=== PATIENT | female | born 1950 | race Caucasian/White ===

== ENCOUNTER → 2017-09-20 11:05 | Outpatient (CLI) | payer MEDICARE, OTHER, SELFPAY ==
[2017-09-20 12:28] LABS: Absolute Neutrophil Count 4.6 X10^3/uL (2.0-7.7); Basophil# 0.04 X10^3/uL; Basophil% 0.7 % (0-1); Eosinophil# 0.03 X10^3/uL; Eosinophils% 0.5 % (0-5); Hematocrit 34.4 % (37-47); Hemoglobin 10.6 g/dl (12.0-15.0); Immature Platelet Fraction 2.8 % (1.0-7.9); Lymphocyte % 18.2 % (19-41); Mean Corp Hgb Conc 30.8 g/gl (32-36); Mean Corpuscular Hgb 24.5 pg (27.0-32.0); Mean Corpuscular Volume 79.4 fL (81-99); Mean Platelet Vol. 11.3 fl (6.2-12.0); Monocyte# 0.24 X10^3/uL; Neutrophil # 4.63 X10^3/uL (2.7-7.7); Neutrophil % 76.4 % (47-70); Platelet Count 307 K/mm3 (150-450); RBC Distribution Width CV 16.8 % (11.6-14.6); RBC Distribution Width SD 48.6 fl (35.1-43.9); RET-HE 25.4 pg (30-35); Red Blood Count 4.33 M/mm3 (4.2-5.4); Reticulocyte Count 0.96 % (0.5-1.5); White Blood Count 6.1 K/mm3 (4.4-11.0)
[2017-09-20 12:31] LABS: POSITIVE COUNT NO; POSITIVE DIFFERENTIAL NO; POSITIVE MORPHOLOGY NO
[2017-09-20 12:59] LABS: Ferritin 7 ng/mL (8-252); Iron 128 ug/dL (50-170); Iron Binding Capacity,Total 442 ug/dL (250-450)
== END ==
PROVIDERS: Family Provider Family Medicine; PCP Family Medicine; Visit Provider Family Medicine
DX: D64.9 Anemia, unspecified (principal)
CPT/HCPCS: 36415; 82728; 83540; 83550; 85025; 85045

== ENCOUNTER → 2017-10-21 14:44 | Outpatient (CLI) | payer MEDICARE, OTHER, SELFPAY ==
--- NOTE | 2017-10-21 14:47 | HPBI_ITS ---
MAMMOGRAPHY - BILATERAL SCREENING REASON FOR EXAM: Female, 66 years old. Routine annual screening examination. PERTINENT HISTORY: Aunt with breast cancer. TECHNIQUE: Digital bilateral breast priyanka (3D mammographic acquisition) in the CC and MLO projections. 2-D mediolateral oblique (MLO) and craniocaudad (CC) views of both breasts were obtained. CAD: Full Field Digital Mammography with Computer Added Detection was performed. COMPARISON: Comparison is made with prior study dated August 31, 2016 and December 10, 2013. FINDINGS: Breast Composition: There are scattered areas of fibroglandular density. There are no dominant masses or suspicious calcifications. There is a stable 4.2 mm well-defined nodule in the mid retroareolar region of the left breast. This was demonstrated to be a cyst on prior ultrasound. No other significant abnormalities are identified. There has been no significant change since the prior study. HPBI/SCREENING MAMM (CAD), BILAT IMPRESSION: Stable bilateral screening mammogram. Yearly follow-up mammogram recommended. (A) ASSESSMENT CATEGORY: BIRADS Category 2: Benign. A letter regarding these results will be sent to the patient by the facility within 30 days. Approximately 10% of breast cancers are not detected by mammography. A normal mammogram should not delay biopsy of a clinically suspicious abnormality. [id number] Electronically Signed: Chandana Maldonado MD at 9:36 EDT Tel [phone], Service support ,
--- NOTE | 2017-10-21 14:50 | HPBD_ITS ---
STUDY: DUAL ENERGY X-RAY ABSORPTIOMETRY / DXA REASON FOR EXAM: Female, 66 years old. The patient is postmenopausal. Loss of height. TECHNIQUE: Bone Mineral Density (BMD) measurements of lumbar spine and bilateral hips were obtained. COMPARISON: Comparison is made with prior study dated May 11, 2015. FINDINGS: Lumbar Spine (L1-L4): g/cm2 (0.925) / T-score (-2.1) / Z-score (-0.5) Findings are suggestive of osteopenia with a moderate fracture risk. Left Femur Total: g/cm2 (0.759) / T-score (-2.0) / Z-score (-0.7) Left Femoral Neck: g/cm2 (0.670) / T-score (-2.7) / Z-score (-1.2) Right Femur Total: g/cm2 (0.734) / T-score (-2.2) / Z-score (-0.9) Right Femoral Neck: g/cm2 (0.682) / T-score (-2.6) / Z-score (-1.1) The T-Scores on the most recent prior examination were: Lumbar Spine (L1-L4): There has been worsening of bone density since the previous examination. Left Femur Total: which represents a worsening of 7.3%. Right Femur Total: which represents a worsening of 5.9%. HPBD/Dexa Bone Density Study (HP) IMPRESSION: The patient is considered osteoporotic as outlined below according to World Jef[employer] Organization (WHO) criteria with a high fracture risk. There has been worsening of bone density since the previous examination. Reference Information: The T-score is the number of standard deviations above or below the standard which is normal for young adults at their peak bone mineral density. The World Health Organization (WHO) interprets the T-scores as follows: Above -1 Normal bone density Between -1 and -2.5 Osteopenia Equal to / or below -2.5 Osteoporosis As a practical clinical guideline, osteopenia may be graded as follows: Mild -1 through -1.5 Moderate -1.6 through -2.0 Severe -2.1 through -2.4 The Z-score is the number of standard deviations above or below age-matched controls. A Z-score of less than -1.5 would be considered abnormal. References: 1. NIH Osteoporosis and Related Bone Diseases http://www.osteo.org 2. International Society for Clinical Densitometry http://www.iscd.org 3. National Osteoporosis Foundation http://www.nof.org Electronically Signed: Chandana Maldonado MD at 15:49 EDT Tel [phone], Service support ,
== END ==
PROVIDERS: Family Provider Family Medicine; PCP Family Medicine; Visit Provider Family Medicine
DX: Z12.31 Encounter for screening mammogram for malignant neoplasm of breast (principal); Z78.0 Asymptomatic menopausal state; Z80.3 Family history of malignant neoplasm of breast
CPT/HCPCS: 77063; 77067; 77080

== ENCOUNTER → 2017-10-22 13:43 | Outpatient (CLI) | payer MEDICARE, OTHER, SELFPAY ==
[2017-10-22 15:50] LABS: Anion Gap 7 (5-15); BUN 6 mg/dL (7-18); BUN/Creat Ratio 8.1 RATIO (10-20); Calcium,Total 9.5 mg/dL (8.5-10.1); Chloride 101 mmol/L (98-107); Creatinine, Serum 0.74 mg/dL (0.55-1.02); EST Glomerular Filtration Rate 83 mL/min (>60); Est Glom Filt Rate - Afr Amer 101 mL/min (>60); Glucose 105 mg/dL (74-106); Potassium 3.7 mmol/L (3.5-5.1); Sodium Level 138 mmol/L (136-145)
== END ==
PROVIDERS: Family Provider Family Medicine; PCP Family Medicine; Visit Provider Family Medicine
DX: I10 Essential (primary) hypertension (principal)
CPT/HCPCS: 36415; 80048

== ENCOUNTER → 2017-10-28 15:46 | Outpatient (CLI) | payer MEDICARE, OTHER, SELFPAY ==
[2017-10-28 18:23] LABS: Anion Gap 8 (5-15); BUN 6 mg/dL (7-18); BUN/Creat Ratio 8.7 RATIO (10-20); Chloride 100 mmol/L (98-107); Creatinine, Serum 0.69 mg/dL (0.55-1.02); EST Glomerular Filtration Rate 90 mL/min (>60); Est Glom Filt Rate - Afr Amer 109 mL/min (>60); Glucose 72 mg/dL (74-106); Magnesium 2.1 mg/dL (1.6-2.6); Phosphorus 3.8 mg/dL (2.5-4.9); Potassium 3.4 mmol/L (3.5-5.1); Sodium Level 138 mmol/L (136-145)
[2017-10-29 08:57] LABS: PTHIN 76.1 pg/mL (18.4-80.1)
[2017-10-29 08:59] LABS: Vitamin D,25 Hydroxy 35.8 ng/mL (29.95-100.01)
== END ==
PROVIDERS: Family Provider Family Medicine; PCP Family Medicine; Visit Provider Family Medicine
DX: M81.0 Age-related osteoporosis without current pathological fracture (principal)
CPT/HCPCS: 36415; 80048; 82306; 83735; 83970; 84100

== ENCOUNTER → 2017-11-20 12:12 | Outpatient (CLI) | payer MEDICARE, OTHER, SELFPAY ==
[2017-11-20 14:17] LABS: Hematocrit 34.9 % (37-47); Mean Corp Hgb Conc 31.5 g/gl (32-36); Mean Corpuscular Hgb 25.2 pg (27.0-32.0); Mean Corpuscular Volume 79.9 fL (81-99); Mean Platelet Vol. 10.8 fl (6.2-12.0); Platelet Count 324 K/mm3 (150-450); RBC Distribution Width CV 15.6 % (11.6-14.6); RBC Distribution Width SD 45.9 fl (35.1-43.9); Red Blood Count 4.37 M/mm3 (4.2-5.4); White Blood Count 8.9 K/mm3 (4.4-11.0)
[2017-11-20 14:18] LABS: Scan Indicated on CBC? Y/N NO
[2017-11-20 14:29] LABS: Erythrocyte Sedimentation Rate 6 mm/hr (0-30)
[2017-11-20 14:41] LABS: Anion Gap 8 (5-15); BUN 10 mg/dL (7-18); BUN/Creat Ratio 14.2 RATIO (10-20); Calcium,Total 8.7 mg/dL (8.5-10.1); Chloride 104 mmol/L (98-107); EST Glomerular Filtration Rate 88 mL/min (>60); Est Glom Filt Rate - Afr Amer 107 mL/min (>60); Glucose 100 mg/dL (74-106); Potassium 3.9 mmol/L (3.5-5.1); Sodium Level 137 mmol/L (136-145); Thyroid Stim Hormone (TSH) 1.46 uIU/mL (0.358-3.74)
[2017-11-21 10:02] LABS: Vitamin B12 368 pg/mL (211-911); Vitamin D,25 Hydroxy 29.6 ng/mL (29.95-100.01)
== END ==
PROVIDERS: Family Provider Family Medicine; PCP Family Medicine; Visit Provider Family Medicine
DX: R00.2 Palpitations (principal); R42 Dizziness and giddiness; E55.9 Vitamin D deficiency, unspecified; E53.8 Deficiency of other specified B group vitamins
CPT/HCPCS: 36415; 80048; 82306; 82607; 84443; 85027; 85652

== ENCOUNTER → 2017-12-22 15:27 | Outpatient (CLI) | payer MEDICARE, OTHER, SELFPAY ==
[2017-12-22 17:56] LABS: Anion Gap 9 (5-15); BUN 4 mg/dL (7-18); BUN/Creat Ratio 5.7 RATIO (10-20); Calcium,Total 9.7 mg/dL (8.5-10.1); Chloride 99 mmol/L (98-107); EST Glomerular Filtration Rate 89 mL/min (>60); Est Glom Filt Rate - Afr Amer 108 mL/min (>60); Glucose 117 mg/dL (74-106); Potassium 4.1 mmol/L (3.5-5.1); Sodium Level 137 mmol/L (136-145)
[2017-12-22 17:58] LABS: Vitamin B12 839 pg/mL (211-911)
== END ==
PROVIDERS: Family Provider Family Medicine; PCP Family Medicine; Visit Provider Family Medicine
DX: I10 Essential (primary) hypertension (principal); E53.8 Deficiency of other specified B group vitamins
CPT/HCPCS: 36415; 80048; 82607

== ENCOUNTER 2018-02-17 02:57 | Inpatient (IN) | payer MEDICARE, OTHER, SELFPAY ==
[2018-02-17] VITALS (16 sets, daily range): BP systolic 133–169; BP diastolic 65–88; PULSE 63–96; RESP 16–21; TEMP 36.4–37.4; O2SAT 80–100; BMI 27.3; BMI 24.9
--- NOTE | 2018-02-17 03:11 | EKG12_ITS ---
Test Reason : SEIZURE Blood Pressure : / mmHG Vent. Rate : 086 BPM Atrial Rate : 086 BPM P-R Int : 160 ms QRS Dur : 082 ms QT Int : 366 ms P-R-T Axes : 062 -29 042 degrees QTc Int : 437 ms Normal sinus rhythm Normal ECG Confirmed by HERMAN PICHARDO, JUAN J ([id number]), editor farm journal MERLYN KAPLAN ([id number]) on 02/18/2018 2:18:41 PM Referred By: MARISOL Confirmed By:JUAN J SUTTON MD
--- NOTE | 2018-02-17 03:11 | CT_ITS ---
STUDY: CT BRAIN WITHOUT CONTRAST REASON FOR EXAM: Female, 67 years old. Seizure x2 tonight. Does not respond to verbal commands. RADIATION DOSAGE (If Supplied By Facility): CTDIvol = ( 44.99 ) mGy, DLP = ( 745.49 ) mGycm TECHNIQUE: Transaxial CT imaging of the brain was performed without administration of intravenous contrast material. Multiplanar coronal and sagittal images were reformatted. Individualized dose optimization techniques were used for this CT. COMPARISON: CT brain and MRI brain 05/18/2016 FINDINGS: Normal soft tissue structures. Normal calvarium. Normal size ventricles and extra-axial spaces for the patient's age. There are areas of decreased attenuation within the white matter tracts of the supratentorial brain, consistent with microvascular disease changes. There are small punctate calcifications of the basal ganglia which are seen in the aging brain as a normal variant. Normal brainstem. Normal cerebellum. There is no intracranial hemorrhage. There are no findings of an acute ischemic infarction. Normal visualized paranasal sinuses. The bilateral mastoid air cells are clear. CT/Brain/Head without Contrast IMPRESSION: Chronic involutional changes of the brain. There is no acute intracranial pathology. There is no significant interval change. Electronically Signed: Ruba Rick MD at 4:20 EDT , Service support ,
[2018-02-17] MEDS: 0.9% Normal Saline 1,000 ML 150 ML IV ×2 (03:22→11:00)
[2018-02-17] MEDS: LORazepam 2 MG/ML Syringe 1 MG IV (03:22)
[2018-02-17 03:36] LABS: Bacteria 0 SEEN /hpf (None Seen); Mucous, Urine 0 SEEN /hpf (<or=2+); Red Blood Cells-Urine 0 SEEN /hpf (0-5); Squamous Epithelial Cells - UA 0 SEEN /hpf (5-10); White Blood Cells 0 SEEN /hpf (0-5)
[2018-02-17 03:37] LABS: Color, Urine Yellow (Yellow); Glucose, Dipstick Normal (Normal); Ketone-Dipstick Negative (Negative); Leukocyte Esterase-Dipstick Negative /ul (Negative); Nitrite-Dipstick Negative (Negative); Occult Blood-Urine 10 /ul (Negative); Protein-Dipstick 15 mg/dl (Negative); Urine Bilirubin Dipstick Negative (Negative); Urine Clarity Clear (Clear); Urine Urobilinogen Normal (Normal)
[2018-02-17 03:40] LABS: Absolute Lymphocyte Count 1.97 X10^3/ul (0.83-4.51); Absolute Neutrophil Count 11.1 X10^3/uL (2.0-7.7); Basophil# 0.03 X10^3/uL; Basophil% 0.2 % (0-1); Eosinophil# 0.13 X10^3/uL; Eosinophils% 0.9 % (0-5); Hematocrit 34.8 % (37-47); Hemoglobin 11.6 g/dl (12.0-15.0); Lymphocyte # 1.97 X10^3/ul (4.0); Lymphocyte % 13.6 % (19-41); Mean Corp Hgb Conc 33.3 g/gl (32-36); Mean Corpuscular Volume 81.1 fL (81-99); Mean Platelet Vol. 12.3 fl (6.2-12.0); Monocyte# 1.16 X10^3/uL; Neutrophil # 11.14 X10^3/uL (2.7-7.7); POSITIVE COUNT NO; POSITIVE DIFFERENTIAL NO; POSITIVE MORPHOLOGY NO; Platelet Count 290 K/mm3 (150-450); RBC Distribution Width CV 15.2 % (11.6-14.6); RBC Distribution Width SD 44.9 fl (35.1-43.9); Red Blood Count 4.29 M/mm3 (4.2-5.4); White Blood Count 14.5 K/mm3 (4.4-11.0)
[2018-02-17 03:54] LABS: ALB/GLOB Ratio 1.1 RATIO (0.9-2.4); AST(SGOT) 18 U/L (15-37); Alanine Aminotransfer ALT/SGPT 24 U/L (13-56); Albumin, Serum 3.6 g/dL (3.2-5.0); Alkaline Phosphatase 68 U/L (45-117); Anion Gap 10 (5-15); BUN 8 mg/dL (7-18); BUN/Creat Ratio 9.3 RATIO (10-20); Calcium,Total 8.7 mg/dL (8.5-10.1); Chloride 97 mmol/L (98-107); Creatinine, Serum 0.86 mg/dL (0.55-1.02); EST Glomerular Filtration Rate 70 mL/min (>60); Est Glom Filt Rate - Afr Amer 85 mL/min (>60); Globulin 3.2 g/dL (2.2-4.2); Glucose 119 mg/dL (74-106); Potassium 3.7 mmol/L (3.5-5.1); Protein, Total 6.8 g/dL (6.4-8.2); Sodium Level 134 mmol/L (136-145)
[2018-02-17 04:05] LABS: Amphetamine Urine VISTA NEGATIVE (<1000 ng/mL); Barbiturate Urine VISTA NEGATIVE (< 200 ng/mL); Benzodiazepine Urine VISTA NEGATIVE (< 200 ng/mL); Cocaine Urine VISTA NEGATIVE (< 300 ng/mL); Ecstacy Urine VISTA NEGATIVE (< 500 ng/mL); Methadone Urine VISTA NEGATIVE (< 300 ng/mL); PCP Urine VISTA NEGATIVE (< 25 ng/mL); THC Urine VISTA NEGATIVE (< 50 ng/mL); Vista UDS pH Range 6
--- NOTE | 2018-02-17 04:10 | ED.VISSUMM ---
- ER Visit Summary Date of Service: 02/17/18 Chief Complaint: [Seizure] History of Present Illness: The patient is a 67 F [presents the emergency department with complaint of seizure. The history comes from the patient's as patient is somewhat somnolent and not answering questions at this time. Patient apparently was in bed around 1 AM when she let out a scream and the noticed whole body tonic-clonic seizure activity that lasted about 10 minutes. Patient afterwards was confused and did not recover completely and had another seizure lasting about 5 minutes. Patient was noted to have bitten her tongue and noted blood from the mouth. Per patient first had a seizure in 2016 and then had another one about 8 months ago but is currently not on any seizure medications. Patient has not been ill recently. Patient does have a history of hypertension, GERD, hepatitis C, questionable MS and von Willebrand's disease. Patient will not answer any questions for me.] Physical Examination: [HEENT-PERRLA, EOMI. Cranial nerves II through XII grossly intact. TMs clear. Mucous membranes moist. No adenopathy. Patient does have a bite wound to the right side of her tongue. Cardiovascular-regular rate and rhythm without murmur or ectopy Lungs-clear to auscultation, chest wall stable without crepitus or subcu emphysema Abdomen-normoactive bowel sounds, soft, nontender, no rebound or rigidity, no peritoneal signs. Neuro exam-no focal deficits and patient does follow commands when asked to move limbs and stick her tongue out. Extremities-intact ?4, normal range of motion, normal pulses, atraumatic] Test Results: [EKG obtained on arrival shows sinus rhythm with a ventricular rate of 86 bpm. CBC with differential of 14.5, hemoglobin 11.6, hematocrit 35, platelets 290. Chemistries unremarkable. LFTs unremarkable. Urinalysis was normal. Troponin is less than 0.015. Toxicology screen was negative. CT scan of the brain without contrast showed no acute significant findings on my interpretation and the official report is pending from radiology. Patient on arrival did receive a milligram of Ativan IV] Emergency Department Course and Treatment: [And was started on Keppra thousand milligrams IV. I did review patient's medical records and it appears that she has had 2 EEGs within the last 2 years that have been without evidence for epileptic activity.] Treatment Plan: [Patient will be admitted to the hospital if she continues to be postictal.] Disposition: [Admit] Impression: [Status epilepticus Prolonged postictal state] This note was generated with [employer] dictation software. It may contain incorrect words, spelling, and punctuation that were not noted in review of the chart prior to signing ED Disposition - Plan for ED Patient: Chief Complaint: Seizure Referrals: Robert Patel MD [Primary Care Provider] -
[2018-02-17 04:14] LABS: Alcohol, Blood (Medical)-Serum < 3.0 mg/dL
--- NOTE | 2018-02-17 04:54 | ED.RN ---
CALLED [facility], ZAYDA WILL BE IN
[2018-02-17] MEDS: levETIRAcetam IV 1,000 MG/100 ML BAG 400 MG IV (05:07)
--- NOTE | 2018-02-17 05:10 | PCM.HP.STD ---
Problem List (1) Anxiety and depression Status: Chronic (2) Narcolepsy Status: Chronic (3) Von Willebrand disease Status: Chronic (4) Gastroesophageal reflux disease Status: Chronic Qualifiers: (5) Rheumatoid arthritis Status: Chronic Qualifiers: (6) Mental status change Status: Acute (7) Seizure Status: Acute History of Present Illness Date of Admission: 02/17/18 Chief Complaint: seizure The patient is a 67 year old female patient presents to the ER following a witnessed seizure at home. Patient was in bed around 1 AM when she let out a scream and the noticed whole body tonic-clonic seizure activity that lasted about 10 minutes. She was confused afterwards and did not recover completely. He reports that she had another seizure lasting about 5 minutes. Patient was noted to have bitten her tongue and noted blood from the mouth. Per patient first had a seizure in 2015 and then had another one about 8 months ago but is currently not on any seizure medications. She was previously evaluated for seizure disorder by neurology but EEG was unable to confirm this and therefore no medications were initiated for seizure. Patient has not been ill recently. She has a history of hypertension, GERD, hepatitis C, questionable MS and von Willebrand's disease. Patient is a poor historian at this time and remains it what appears to be a post ictal state. Past Medical History Past Medical History (Chronic Problems): Chronic Problems Anxiety and depression (Chronic) Narcolepsy (Chronic) Hep C (Chronic) Von Willebrand disease (Chronic) Gastroesophageal reflux disease (Chronic) Rheumatoid arthritis (Chronic) Allergies codeine Allergy (Verified 02/17/18 03:11) Hives morphine Allergy (Verified 02/17/18 03:11) Hives Opioids - Morphine Analogues Allergy (Verified 02/17/18 03:11) Hives amicar Adverse Reaction (Uncoded 02/17/18 03:11) Other sassafrass Adverse Reaction (Uncoded 02/17/18 03:11) Nausea/Vom/Diarrhea Home Medications: Ambulatory Orders Medication Instructions Recorded Lisinopril [Zestril] 10 mg PO DAILY 05/18/16 Omeprazole [Prilosec] 40 mg PO BID 05/18/16 predniSONE tablet 10 mg PO DAILY PRN 05/18/16 Potassium Chloride [K-Dur] 20 meq PO PRN PRN 02/17/18 Surgical History: - - L Breast biopsy, D&C, Cholecystectomy, Appendectomy. 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 Smoking Status: Former smoker - *Family History Maternal History Items: Cancer - utine cancer Paternal History Items: No pertinent history Review of Systems Unable to obtain accurate/complete ROS d/t: patient is confused and not able answer questions coherently VTE Information - Inpt Only VTE Present on Admission: No VTE Mechan Device Prophylaxis: None VTE Pharm Prophylaxis ordered?: Yes Patient Problems: Active and Suspected Problems Seizure (Acute) - Physical Exam General: Confused HEENT: Atraumatic, Normocephalic, Sluggish Pupils, - - dried blood around mouth from tongue bite Neck: Supple Lungs: Clear to auscultation, Normal air movement Cardiovascular: Regular rate, Regular Rhythm, Normal S1, Normal S2, No murmurs Abdomen: Bowel Sounds Present, Soft, Non Tender Extremities: No edema, Capillary Refill Less than 3 Seconds Skin: No rashes Musculoskeletal: No Tenderness to Palpation of Joints or Extremities Neurological: Neuro grossly intact Psych/Mental Status: - - difficult to arouse, but she was able to make one word answers and then she would quickly fall back to sleep Vital Signs Temp Pulse Resp BP Pulse Ox 98.3 F 89 21 H 139/66 H 97 02/17/18 02:58 02/17/18 05:05 02/17/18 05:05 02/17/18 05:05 02/17/18 05:05 Oxygen Flow Rate (L/min) 4 Oxygen Delivery Method Room Air Weight: 164 lb 0.383 oz Body Mass Index (BMI) 27.3 Finger Stick Blood Glucose 117 Laboratory Tests Past 24 Hrs 02/17/18 02/17/18 02/17/18 03:13 03:13 03:13 WBC 14.5 H RBC 4.29 Hgb 11.6 L Hct 34.8 L MCV 81.1 MCH 27.0 MCHC 33.3 RDW 15.2 H RDW Differential 44.9 H Plt Count 290 MPV 12.3 H Immature Gran % (Auto) 0.300 Neut % (Auto) 77.0 H Lymph % (Auto) 13.6 L [place] % (Auto) 8.0 Eos % (Auto) 0.9 Baso % (Auto) 0.2 Absolute Neuts (auto) 11.1 H Absolute Lymphs (auto) 1.97 Total Counted Not Reportable Sodium 134 L Potassium 3.7 Chloride 97 L Carbon Dioxide 27.0 Anion Gap 10 BUN 8 Creatinine 0.86 Estim Creat Clear Calc 57.90 Est GFR (MDRD) Af Amer 85 Est GFR (MDRD) Non-Af 70 BUN/Creatinine Ratio 9.3 L Glucose 119 H Calcium 8.7 Total Bilirubin 0.40 AST 18 ALT 24 Alkaline Phosphatase 68 Troponin I < 0.015 Total Protein 6.8 Albumin 3.6 Globulin 3.2 Albumin/Globulin Ratio 1.1 Urine Color Urine Clarity Urine pH Ur Specific Dillon Urine Protein Urine Glucose (UA) Urine Ketones Urine Occult Blood Urine Nitrite Urine Bilirubin Urine Urobilinogen Ur Leukocyte Esterase Urine RBC Urine WBC Ur Squamous Epith Cells Urine Bacteria Urine Mucus Urine Opiates Screen Urine Methadone Screen Ur Barbiturates Screen Ur Phencyclidine Scrn Ur Amphetamines Screen U Methamphetamin-MDMA U Benzodiazepines Scrn Urine Cocaine Screen U Cannabinoids Screen Ur Drug Screen Comment Ethyl Alcohol < 3.0 02/17/18 02/17/18 03:30 03:30 WBC RBC Hgb Hct MCV MCH MCHC RDW RDW Differential Plt Count MPV Immature Gran % (Auto) Neut % (Auto) Lymph % (Auto) [place] % (Auto) Eos % (Auto) Baso % (Auto) Absolute Neuts (auto) Absolute Lymphs (auto) Total Counted Sodium Potassium Chloride Carbon Dioxide Anion Gap BUN Creatinine Estim Creat Clear Calc Est GFR (MDRD) Af Amer Est GFR (MDRD) Non-Af BUN/Creatinine Ratio Glucose Calcium Total Bilirubin AST ALT Alkaline Phosphatase Troponin I Total Protein Albumin Globulin Albumin/Globulin Ratio Urine Color Yellow Urine Clarity Clear Urine pH 6.0 Ur Specific Dillon 1.020 Urine Protein 15 H Urine Glucose (UA) Normal Urine Ketones Negative Urine Occult Blood 10 H Urine Nitrite Negative Urine Bilirubin Negative Urine Urobilinogen Normal Ur Leukocyte Esterase Negative Urine RBC 0 SEEN Urine WBC 0 SEEN Ur Squamous Epith Cells 0 SEEN Urine Bacteria 0 SEEN Urine Mucus 0 SEEN Urine Opiates Screen NEGATIVE Urine Methadone Screen NEGATIVE Ur Barbiturates Screen NEGATIVE Ur Phencyclidine Scrn NEGATIVE Ur Amphetamines Screen NEGATIVE U Methamphetamin-MDMA NEGATIVE U Benzodiazepines Scrn NEGATIVE Urine Cocaine Screen NEGATIVE U Cannabinoids Screen NEGATIVE Ur Drug Screen Comment Ethyl Alcohol Assessment/Plan All Active Problems Seizure (Acute) Influenza A (Acute) Mental status change (Acute) Chronic Problems Anxiety and depression (Chronic) Narcolepsy (Chronic) Hep C (Chronic) Von Willebrand disease (Chronic) Gastroesophageal reflux disease (Chronic) Rheumatoid arthritis (Chronic) Plan - admit to PCU - consult neurology to evaluate and treat for seizure disorder. - neuro checks q 4hrs - continue Keppra initiated in the ER - EEG, seizure precautions - hold routine PO medications for now - LMWH for DVT prophylaxis Code Visit Inpatient E&M: 35940 Init Hosp L3
--- NOTE | 2018-02-17 05:56 | NURSING ---
Call Kevin ED charge nursehosea to send patient to the floor.
[2018-02-17 10:34] LABS: Thyroid Stim Hormone (TSH) 3.34 uIU/mL (0.358-3.74)
--- NOTE | 2018-02-17 11:03 | NURSING ---
VITALS LATE D/T EEG IN PROGRESS.
--- NOTE | 2018-02-17 13:08 | PCM.CONS.GEN ---
Problem List (1) Seizure Status: Acute Reason for Consult Date of Consultation: 02/17/18 Reason for Consultation: Seizures History of Present Illness: The patient is a 67 year old CF with PMH HTN, RA, Depression/anxiety, Narcolepsy, Hepatitis C, Von Willebrand disease admitted with seizures. History could not be obtained from the patient and history is obtained from medical records and charts. Per patient she does not remember the reason she is in the hospital, is drowsy at present but is arousable and follows VC. Per documentation, patient was in the bed around 1 AM (02/17/18) when she let our a scream and the noticed whole body GTCs, that lasted for about 10 minutes, was postictal, had another seizure lasting for about 5 minutes, had tongue bite and continued to be post ictal on admission. Per documentation she had first seizure in 2015, then had another one about 8 months ago, was not on any AED at home, was loaded with Keppra 1 g on arrival. At present there is no documentation of fever, VALVERDE, visual disturbances, focal motor weakness or sensory loss. CT head done on admission reported negative. Past Medical History Past Medical History (Chronic Problems): Chronic Problems Anxiety and depression (Chronic) Narcolepsy (Chronic) Hep C (Chronic) Von Willebrand disease (Chronic) Gastroesophageal reflux disease (Chronic) Rheumatoid arthritis (Chronic) Allergies codeine Allergy (Verified 02/17/18 03:11) Hives morphine Allergy (Verified 02/17/18 03:11) Hives Opioids - Morphine Analogues Allergy (Verified 02/17/18 03:11) Hives amicar Adverse Reaction (Uncoded 02/17/18 03:11) Other sassafrass Adverse Reaction (Uncoded 02/17/18 03:11) Nausea/Vom/Diarrhea Home Medications: Ambulatory Orders Medication Instructions Recorded Lisinopril [Zestril] 10 mg PO DAILY 05/18/16 Omeprazole [Prilosec] 40 mg PO BID 05/18/16 predniSONE tablet 10 mg PO DAILY PRN 05/18/16 Potassium Chloride [K-Dur] 20 meq PO PRN PRN 02/17/18 Surgical History: - - L Breast biopsy, D&C, Cholecystectomy, Appendectomy. 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 Lives: Spouse/ Significant Other Smoking Status: Former smoker Tobacco Use: Cigarettes Drugs: - - could not be obtained since patient is drowsy - *Family History Maternal History Items: Cancer - utine cancer Paternal History Items: No pertinent history Review of Systems Constitutional: Reports: - - ROS could not be obtained since pateint is drowsy Patient Problems: Active and Suspected Problems Seizure (Acute) - Physical Exam General: - - drowsy HEENT: Normocephalic Neck: Supple Lungs: Clear to auscultation Cardiovascular: Normal S1, Normal S2 Abdomen: Bowel Sounds Present Extremities: No cyanosis Musculoskeletal: No Tenderness to Palpation of Joints or Extremities Neurological: - - drowsy, easily arousable, CN 2-12 grossly intact, moves all 4 extremities, sensory/cerebellar/gait could not be assessed, limited Neurology examination, Reflexes + B/L B/S/T/K/A, no NR, no Brudzincki or Kernig's sign Vital Signs Temp Pulse Resp BP Pulse Ox 97.9 F 63 18 165/88 H 99 02/17/18 11:03 02/17/18 11:03 02/17/18 11:03 02/17/18 11:03 02/17/18 11:03 Oxygen Flow Rate (L/min) 2 Oxygen Delivery Method Nasal Cannula Weight: 68 kg Body Mass Index (BMI) 24.9 Intake and Output for Last 24 Hours 02/15/18 02/16/18 02/17/18 23:59 23:59 23:59 Intake Total 669 / 669 Balance 669 / 669 Laboratory Tests Past 24 Hrs 02/17/18 07:13 Magnesium 2.0 TSH 3.34 Assessment/Plan All Active Problems Seizure (Acute) Influenza A (Acute) Mental status change (Acute) The patient is a 67 year old CF with PMH HTN, RA, Depression/anxiety, Narcolepsy, Hepatitis C, Von Willebrand disease admitted with seizures. History could not be obtained from the patient and history is obtained from medical records and charts. Per patient she does not remember the reason she is in the hospital, is drowsy at present but is arousable and follows VC. Per documentation, patient was in the bed around 1 AM (02/17/18) when she let our a scream and the noticed whole body GTCs, that lasted for about 10 minutes, was postictal, had another seizure lasting for about 5 minutes, had tongue bite and continued to be post ictal on admission. Per documentation she had first seizure in 2016, then had another one about 8 months ago, was not on any AED at home, was loaded with Keppra 1 g on arrival. At present there is no documentation of fever, VALVERDE, visual disturbances, focal motor weakness or sensory loss. CT head done on admission reported negative. Impression Seizure R/O PRES Plan -Await MRI brain w/w/o contrast -Await EEG -Keppra 750 mg IV BID -Labs [id number], NA-134, UA neg, UDS-negative -Better BP control, will defer to primary team. -Seizure precautions -No driving for 6 months -Further medical management per primary team -GI/DVT prophylaxis -PT/OT -Fall precautions -Further medical management per primary team -Please follow up with Neurology as outpatient in about 4-6 weeks -Please call with questions if any -Thank you for allowing us to participate in patient's care and management I spent 60 minutes taking history, doing physical examination, reviewing medical records, coordinating care and counseling the patient. Code Visit Inpatient E&M: 57118 Init Hosp L3
--- NOTE | 2018-02-17 13:18 | CON.PCM_ITS ---
Problem List (1) Seizure Status: Acute Reason for Consult Date of Consultation: 02/17/18 Reason for Consultation: Seizures History of Present Illness: The patient is a 67 year old CF with PMH HTN, RA, Depression/anxiety, Narcolepsy , Hepatitis C, Von Willebrand disease admitted with seizures. History could not be obtained from the patient and history is obtained from medical records and charts. Per patient she does not remember the reason she is in the hospital, is drowsy at present but is arousable and follows VC. Per documentation, patient was in the bed around 1 AM (02/17/18) when she let our a scream and the noticed whole body GTCs, that lasted for about 10 minutes, was postictal, had another seizure lasting for about 5 minutes, had tongue bite and continued to be post ictal on admission. Per documentation she had first seizure in 2015, then had another one about 8 months ago, was not on any AED at home, was loaded with Keppra 1 g on arrival. At present there is no documentation of fever, VALVERDE, visual disturbances, focal motor weakness or sensory loss. CT head done on admission reported negative. Past Medical History Past Medical History (Chronic Problems): Chronic Problems Anxiety and depression (Chronic) Narcolepsy (Chronic) Hep C (Chronic) Von Willebrand disease (Chronic) Gastroesophageal reflux disease (Chronic) Rheumatoid arthritis (Chronic) Allergies codeine Allergy (Verified 02/17/18 03:11) Hives morphine Allergy (Verified 02/17/18 03:11) Hives Opioids - Morphine Analogues Allergy (Verified 02/17/18 03:11) Hives amicar Adverse Reaction (Uncoded 02/17/18 03:11) Other sassafrass Adverse Reaction (Uncoded 02/17/18 03:11) Nausea/Vom/Diarrhea Home Medications: Ambulatory Orders Medication Instructions Recorded Lisinopril [Zestril] 10 mg PO DAILY 05/18/16 Omeprazole [Prilosec] 40 mg PO BID 05/18/16 predniSONE tablet 10 mg PO DAILY PRN 05/18/16 Potassium Chloride [K-Dur] 20 meq PO PRN PRN 02/17/18 Surgical History: - - L Breast biopsy, D&C, Cholecystectomy, Appendectomy. Psychiatric History: Anxiety, Depression PROSTHETIST History: No pertinent PROSTHETIST history Lives: Spouse/ Significant Other Smoking Status: Former smoker Tobacco Use: Cigarettes Drugs: - - could not be obtained since patient is drowsy - *Family History Maternal History Items: Cancer - utine cancer Paternal History Items: No pertinent history Review of Systems Constitutional: Reports: - - ROS could not be obtained since pateint is drowsy Patient Problems: Active and Suspected Problems Seizure (Acute) - Physical Exam General: - - drowsy HEENT: Normocephalic Neck: Supple Lungs: Clear to auscultation Cardiovascular: Normal S1, Normal S2 Abdomen: Bowel Sounds Present Extremities: No cyanosis Musculoskeletal: No Tenderness to Palpation of Joints or Extremities Neurological: - - drowsy, easily arousable, CN 2-12 grossly intact, moves all 4 extremities, sensory/cerebellar/gait could not be assessed, limited Neurology examination, Reflexes + B/L B/S/T/K/A, no NR, no Brudzincki or Kernig's sign Vital Signs Temp Pulse Resp BP Pulse Ox 97.9 F 63 18 165/88 H 99 02/17/18 11:03 02/17/18 11:03 02/17/18 11:03 02/17/18 11:03 02/17/18 11:03 Oxygen Flow Rate (L/min) 2 Oxygen Delivery Method Nasal Cannula Weight: 68 kg Body Mass Index (BMI) 24.9 Intake and Output for Last 24 Hours 02/15/18 02/16/18 02/17/18 23:59 23:59 23:59 Intake Total 669 / 669 Balance 669 / 669 Laboratory Tests Past 24 Hrs 02/17/18 07:13 Magnesium 2.0 TSH 3.34 Assessment/Plan All Active Problems Seizure (Acute) Influenza A (Acute) Mental status change (Acute) The patient is a 67 year old CF with PMH HTN, RA, Depression/anxiety, Narcolepsy , Hepatitis C, Von Willebrand disease admitted with seizures. History could not be obtained from the patient and history is obtained from medical records and charts. Per patient she does not remember the reason she is in the hospital, is drowsy at present but is arousable and follows VC. Per documentation, patient was in the bed around 1 AM (02/17/18) when she let our a scream and the noticed whole body GTCs, that lasted for about 10 minutes, was postictal, had another seizure lasting for about 5 minutes, had tongue bite and continued to be post ictal on admission. Per documentation she had first seizure in 2016, then had another one about 8 months ago, was not on any AED at home, was loaded with Keppra 1 g on arrival. At present there is no documentation of fever, VALVERDE, visual disturbances, focal motor weakness or sensory loss. CT head done on admission reported negative. Impression Seizure R/O PRES Plan -Await MRI brain w/w/o contrast -Await EEG -Keppra 750 mg IV BID -Labs [id number]-13.5, NA-134, UA neg, UDS-negative -Better BP control, will defer to primary team. -Seizure precautions -No driving for 6 months -Further medical management per primary team -GI/DVT prophylaxis -PT/OT -Fall precautions -Further medical management per primary team -Please follow up with Neurology as outpatient in about 4-6 weeks -Please call with questions if any -Thank you for allowing us to participate in patient's care and management I spent 60 minutes taking history, doing physical examination, reviewing medical records, coordinating care and counseling the patient. Code Visit Inpatient E&M: 13095 Init Hosp L3
--- NOTE | 2018-02-17 14:32 | EEG ---
- Electroencephalogram Date of service 02/17/18 History EEG is being done in this 67 yr F to rule out seizures EEG Description: This is an 18 channel EEG with 10-20 lead placement system. Bipolar montages, Referential and Circumferential montages were reviewed. Photic stimulation and Hyperventilation were performed. The posterior dominant background rhythm was not present. Photo stimulation elicited normal driving response but no abnormal photoparoxysmal response, Hyperventilation did not elicit any abnormal photoparoxysmal response. Sleep was identified. The generalized background rhythm was in the theta frequency range of 7 Hz. Episodes of generalized delta wave frequency slowing noted intermittently during the record. There was no epileptiform discharges or electrographic seizures noted during this recording. EEG Interpretation This is an abnormal EEG due to the presence of mild generalized slowing. This can be seen in generalized cerebral dysfunction like metabolic/toxic encephalopathy. Clinical correlation is advised. There is no epileptiform discharges or electrographic seizures noted during the record.
--- NOTE | 2018-02-17 14:39 | PCM.PROGNOTE ---
Patient Problems: Active and Suspected Problems Seizure (Acute) Subjective: pt resting comfortably in bed. Still lethargic. c/o mild frontal headache, some dizziness. No further seizure activity. hx of seizures in . Did not get started on antiseizure medicine. Saw a neurologist and reports no explanation for seizure. Had a negative MRI at that time. - Physical Exam General: Alert, Oriented x3, Cooperative HEENT: Atraumatic, PERRLA, EOMI, Normocephalic Neck: Supple, No JVD, Negative Carotid Bruits Lungs: Clear to auscultation, Normal air movement Cardiovascular: Regular rate, No murmurs Abdomen: Bowel Sounds Present, Soft, Non Tender Extremities: No edema, Capillary Refill Less than 3 Seconds Skin: No rashes, No breakdown Musculoskeletal: No Tenderness to Palpation of Joints or Extremities Neurological: Cranial nerves II-XII grossly intact Psych/Mental Status: Normal Affect, Appropriate, Alert and oriented to time, place, person, mood and affect Vital Signs Temp Pulse Resp BP Pulse Ox 97.9 F 63 18 165/88 H 99 02/17/18 11:03 02/17/18 11:03 02/17/18 11:03 02/17/18 11:03 02/17/18 11:03 Oxygen Flow Rate (L/min) 2 Oxygen Delivery Method Nasal Cannula Weight: 149 lb 14.629 oz Body Mass Index (BMI) 24.9 Intake and Output for Last 24 Hours 02/15/18 02/16/18 02/17/18 23:59 23:59 23:59 Intake Total 669 / 669 Balance 669 / 669 Laboratory Tests Past 24 Hrs 02/17/18 07:13 Magnesium 2.0 TSH 3.34 Medical Necessity - Tobacco Use Smoking Status: Former smoker Tobacco Use: Cigarettes Assessment/Plan All Active Problems Seizure (Acute) Influenza A (Acute) Mental status change (Acute) 1. Seizure - post ictal. Neuro following. EEG with gen slowing. Inc. Keppra to [address] brain with chronic changes. MRI pending. 2. Hx Narcolepsy, RA, htn, von willebrand, anxiet/depression - continue home medications. DVT ppx: SCDs - refused lovenox 2/2 hx von willebrand DC planning: PTOT. This patient was seen by Kevin Iglesias PA-C under the supervision of Doctor Jared.
--- NOTE | 2018-02-17 15:41 | CASEMGMT ---
Pt was admitted early this am and has had altered LOC as well as multiple tests today, this RN CM will defer CM assessment to 02/18/18. SStaten RN CM
[2018-02-17] MEDS: Lisinopril 10 MG Tablet PO (16:48)
--- NOTE | 2018-02-17 18:17 | MRI_ITS ---
STUDY: MRI BRAIN WITH AND WITHOUT CONTRAST REASON FOR EXAM: Female, 67 years old. Seizures TECHNIQUE: Standardized multiplanar fat and water weighted pulse sequences were obtained. 7 ml of Gadavist contrast material was administered intravenously for the contrast portion of the examination. COMPARISON: MRI on May 18, 2016, brain CT on February 17, 2018 FINDINGS: Normal size of the ventricles and extra-axial spaces for the patient's age. Nonspecific periventricular white matter ischemic changes with most pronounced involvement of the parieto-occipital regions raising question of PRES however clinical correlation is recommended. No restricted diffusion to suggest acute infarct. Normal bilateral basal ganglia. Normal thalami. There is no extra-axial fluid accumulation. Normal flow voids within the major intracranial circulation suggesting patency by spin echo criteria. Normal venous enhancement. There is no enhancing intra-axial or extra-axial abnormality. Normal sella turcica, pituitary gland, infundibular stalk, optic chiasm and hypothalamus. Normal tectal plate and pineal gland. Normal midbrain, shar and medulla. Normal cerebellum. Normal basal cisterns. Normal bilateral temporal bones. Normal bilateral internal auditory canals. No demonstrated orbital abnormality, within the constraints of a routine brain study. Mild mucosal thickening of the ethmoid air cells.. Normal calvarium and skull base. Normal visualized soft tissue structures. Normal visualized upper cervical spine. Findings are similar to that seen on prior study MRI/Brain W/WO Contrast IMPRESSION: Moderate periventricular white matter disease with prominent involvement of the parieto-occipital regions raising question of PRES however clinical correlation recommended No evidence for acute infarct. No enhancing lesions following contrast demonstration Electronically Signed: Akbar Jo MD at 20:00 EDT , Service support ,
[2018-02-17] MEDS: 0.9% Normal Saline 1,000 ML 125 ML IV (20:20)
[2018-02-17] MEDS: Pantoprazole Sodium 40 MG Tablet PO (21:34)
[2018-02-18] VITALS (8 sets, daily range): BP systolic 123–134; BP diastolic 52–69; PULSE 66–87; RESP 16–18; TEMP 36.7–37.3; O2SAT 94–98
[2018-02-18] MEDS: 0.9% Normal Saline 1,000 ML 125 ML IV ×2 (03:36→11:31)
[2018-02-18 07:03] LABS: Anion Gap 5 (5-15); BUN 5 mg/dL (7-18); BUN/Creat Ratio 8.2 RATIO (10-20); Calcium,Total 8.6 mg/dL (8.5-10.1); Chloride 110 mmol/L (98-107); Creatinine, Serum 0.61 mg/dL (0.55-1.02); EST Glomerular Filtration Rate 104 mL/min (>60); Est Glom Filt Rate - Afr Amer 126 mL/min (>60); Glucose 94 mg/dL (74-106); Potassium 3.8 mmol/L (3.5-5.1); Sodium Level 143 mmol/L (136-145)
[2018-02-18] MEDS: Pantoprazole Sodium 40 MG Tablet PO (09:07)
[2018-02-18] MEDS: Lisinopril 10 MG Tablet PO (09:07)
--- NOTE | 2018-02-18 11:59 | CASEMGMT ---
Face to Face with patient for initial transition planning/care coordination assessment. NIEVES BRDALEY introduced self and role at [facility], pt voices understanding and consents to assessment at this time. Pt is sitting up in chair in no distress at this time. Pt is A/O x4 at this time but does struggle with answering questions at times. Care providers, pharmacy, and demographics verified. See attached link. Pt voices no further concerns/needs at this time. Advised pt to ask for CM if any further questions/concerns/needs arise, voices understanding. PLAN: Home SStaten NIEVES BRADLEY
--- NOTE | 2018-02-18 12:05 | PCM.DC ---
- Discharge Diagnoses Current Active Problems: Current Active and Chronic Problems (1) Generalized Tonic-Clonic Seizure w/ Prior Seizure history not on AED (2) Rheumatoid Arthritis (3) Hypertension (4) Von Willebrand disease (5) Hepatitis C, Chronic (6) Depression and Anxiety (7) Narcolepsy (8) GERD You will use the following diet at home:: Cardiac Your food should be the consistency of: Regular Your liquids should be the consistency of: Regular/Thin Discharge Activity: May Not Drive, - - Do not operative heavy machines. Do not take bath or swim alone. You need to review parameters with liberalization of these with Neurology at follow-up. May resume sexual activity in: No Restrictions Weight Bearing Status: Weight bearing as tolerated Call your doctor if you observe: Fever of 101 or Higher, Inability to urinate, Inability to have a bowel movement, Shortness of breath, Dizziness, Fainting spells, Chest pain, Uncontrolled pain, - - Breakthrough Seizure activity. Instructions: Treating Epilepsy: Medications, Self-Care for Epilepsy, Epilepsy: Safety During a Seizure, Levetiracetam Oral tablet Additional Instructions: Please follow-up with Neurology, Dr. Wilson in 2 weeks for repeat assessment and set-up for repeat MRI. If you have any questions or concerns you may also contact his office. Please continue your blood pressure regimen to assure blood pressure at goal which may be reviewed with your primary care physician. Allergies/Adverse Reactions: Allergies codeine Allergy (Verified 02/17/18 03:11) Hives morphine Allergy (Verified 02/17/18 03:11) Hives Opioids - Morphine Analogues Allergy (Verified 02/17/18 03:11) Hives amicar Adverse Reaction (Uncoded 02/17/18 03:11) Other sassafrass Adverse Reaction (Uncoded 02/17/18 03:11) Nausea/Vom/Diarrhea Medications to take at Discharge Lisinopril [Zestril] 10 mg PO DAILY 05/18/16 Omeprazole [Prilosec] 40 mg PO BID 05/18/16 predniSONE tablet 10 mg PO DAILY PRN 05/18/16 Potassium Chloride [K-Dur] 20 meq PO PRN PRN 02/17/18 levETIRAcetam tablet [Keppra tablet] 750 mg PO BID #60 tab 02/18/18 The following prescriptions were given: levETIRAcetam tablet [Keppra tablet] 750 mg PO BID #60 tab Primary Care Physician: Robert Patel MD [Primary Care Provider] - Please follow up with your Primary Care Physician in: Follow-up within 3-5 days to review admission. Test Results: Test results from this visit will be discussed in further detail at your follow-up appointment, if applicable. Please Follow Up With: Jeannette Wilson MD When: Follow-up in 2 weeks per his request. Proposed Discharge Date: 02/18/18
--- NOTE | 2018-02-18 12:10 | DCINST_ITS ---
- Discharge Diagnoses Current Active Problems: Current Active and Chronic Problems (1) Generalized Tonic-Clonic Seizure w/ Prior Seizure history not on AED (2) Rheumatoid Arthritis (3) Hypertension (4) Von Willebrand disease (5) Hepatitis C, Chronic (6) Depression and Anxiety (7) Narcolepsy (8) GERD You will use the following diet at home:: Cardiac Your food should be the consistency of: Regular Your liquids should be the consistency of: Regular/Thin Discharge Activity: May Not Drive, - - Do not operative heavy machines. Do not take bath or swim alone. You need to review parameters with liberalization of these with Neurology at follow-up. May resume sexual activity in: No Restrictions Weight Bearing Status: Weight bearing as tolerated Call your doctor if you observe: Fever of 101 or Higher, Inability to urinate, Inability to have a bowel movement, Shortness of breath, Dizziness, Fainting spells, Chest pain, Uncontrolled pain, - - Breakthrough Seizure activity. Instructions: Treating Epilepsy: Medications, Self-Care for Epilepsy, Epilepsy : Safety During a Seizure, Levetiracetam Oral tablet Additional Instructions: Please follow-up with Neurology, Dr. Wilson in 2 weeks for repeat assessment and set-up for repeat MRI. If you have any questions or concerns you may also contact his office. Please continue your blood pressure regimen to assure blood pressure at goal which may be reviewed with your primary care physician. Allergies/Adverse Reactions: Allergies codeine Allergy (Verified 02/17/18 03:11) Hives morphine Allergy (Verified 02/17/18 03:11) Hives Opioids - Morphine Analogues Allergy (Verified 02/17/18 03:11) Hives amicar Adverse Reaction (Uncoded 02/17/18 03:11) Other sassafrass Adverse Reaction (Uncoded 02/17/18 03:11) Nausea/Vom/Diarrhea Medications to take at Discharge Lisinopril [Zestril] 10 mg PO DAILY 05/18/16 Omeprazole [Prilosec] 40 mg PO BID 05/18/16 predniSONE tablet 10 mg PO DAILY PRN 05/18/16 Potassium Chloride [K-Dur] 20 meq PO PRN PRN 02/17/18 levETIRAcetam tablet [Keppra tablet] 750 mg PO BID #60 tab 02/18/18 The following prescriptions were given: levETIRAcetam tablet [Keppra tablet] 750 mg PO BID #60 tab Primary Care Physician: Robert Patel MD [Primary Care Provider] - Please follow up with your Primary Care Physician in: Follow-up within 3-5 days to review admission. Test Results: Test results from this visit will be discussed in further detail at your follow- up appointment, if applicable. Please Follow Up With: Jeannette Wilson MD When: Follow-up in 2 weeks per his request. Proposed Discharge Date: 02/18/18
--- NOTE | 2018-02-18 12:42 | DS.PCM_ITS ---
Discharge Date and Diagnosis - Problem List Patient Problems: Active and Suspected Problems Seizure (Acute) Date of Admission: 02/17/18 Date of Discharge: 02/18/18 - Primary Discharge Diagnosis Active and Suspected Problems Generalized tonic/clonic Seizure (Acute) RPES on MRI HTN hx RA hx von willebrand dz chronic hep c depression/anxiety Narcolepsy gerd - Secondary Discharge Diagnosis Chronic Problems Anxiety and depression (Chronic) Narcolepsy (Chronic) Hep C (Chronic) Von Willebrand disease (Chronic) Gastroesophageal reflux disease (Chronic) Rheumatoid arthritis (Chronic) Hospital Course and Treatment Imaging Results: CT/Brain/Head without Contrast IMPRESSION: Chronic involutional changes of the brain. There is no acute intracranial pathology. There is no significant interval change. EEG Interpretation This is an abnormal EEG due to the presence of mild generalized slowing. This can be seen in generalized cerebral dysfunction like metabolic/toxic encephalopathy. Clinical correlation is advised. There is no epileptiform discharges or electrographic seizures noted during the record. MRI/Brain W/WO Contrast IMPRESSION: Moderate periventricular white matter disease with prominent involvement of the parieto-occipital regions raising question of PRES however clinical correlation recommended No evidence for acute infarct. No enhancing lesions following contrast demonstration Consults: Neuro - Steve Operations: None Procedures: Electroencephalogram Summary of Care Provided: Physical exam on day of discharge: General: Resting comfortably NAD Psych: A/Ox3 normal affect HEENT: PEARRLA AT NC Neck: Supple NT CV: RRR no m/t/r/g/h Resp: CTA Abd: [id number] Soft NT no guarding or rigidity Ext: DP2+= no edema Skin: W/D normal turgor Lymph/Heme: No active bleeding or adenopathy Neuro: CN2-12 intact Hospital course: The patient is a 67 year old F with a hx of two prior seizures in 2016, 2017, not on antiepileptic medications, also hx of von willebrand, GERD, RA, narcolepsy, chronic hep c, anxiety and depression, who presented to the ER with witnessed seizure at home that was described as a whole body tonic clonic seizure lasting about 10 mins, and then a second seizure maybe 5 mins in length. Pt bit her tongue, was confused afterwards with increased lethargy. She came to the ER and was loaded with keppra 1000 mg, admitted to PCU with neuro consult. She remained post ictal the following day. An EEG showed generalized slowing. MRI demonstrated possible RPES. Neuro recommended that she continue PO keppra at 750 BID and to have improved BP control, and that she would need to follow up in 4-6 weeks with a repeat MRI. She recovered from her post ictal state and was discharged home in stable condition. Please also follow up with your PCP. This patient was seen by Kevin Iglesias PA-C under the supervision of Dr. Coleman. [] Discharge Diet: Low fat/ Low Cholesterol, 2000 mg Sodium Diet Discharge Activity: May Not Drive, - - Do not operative heavy machines. Do not take bath or swim alone. You need to review parameters with liberalization of these with Neurology at follow-up. May resume sexual activity in: No Restrictions Weight Bearing Status: Weight bearing as tolerated Call your doctor if you observe: Fever of 101 or Higher, Inability to urinate, Inability to have a bowel movement, Shortness of breath, Dizziness, Fainting spells, Chest pain, Uncontrolled pain, - - Breakthrough Seizure activity. Home Medications: Medications to take at Discharge Lisinopril [Zestril] 10 mg PO DAILY 05/18/16 Omeprazole [Prilosec] 40 mg PO BID 05/18/16 predniSONE tablet 10 mg PO DAILY PRN 05/18/16 Potassium Chloride [K-Dur] 20 meq PO PRN PRN 02/17/18 levETIRAcetam tablet [Keppra tablet] 750 mg PO BID #60 tab 02/18/18 Following Prescrptions Were Given to Patient: levETIRAcetam tablet [Keppra tablet] 750 mg PO BID #60 tab Primary Care Physician: Robert Patel MD [Primary Care Provider] - Please follow up with your Primary Care Physician in: Follow-up within 3-5 days to review admission. Please Follow Up With: Jeannette Wilson MD When: Follow-up in 2 weeks per his request. Please Follow Up With: Robert Patel MD When: 3-5 Days Patient Instructions: Levetiracetam Oral tablet, Treating Epilepsy: Medications , Self-Care for Epilepsy, Epilepsy: Safety During a Seizure Disposition: Home Minutes spent on discharge:: 35 Patient Condition:: Stable Medical Necessity - Tobacco Use Smoking Status: Former smoker Tobacco Use: Cigarettes Meaningful Use Info Meaningful Use Diagnoses (Choose all that apply): None applicable
--- NOTE | 2018-02-18 13:54 | PCM.PN.NEU ---
Subjective: No issues overnight. No further documented seizures. on Keppra. Per daughter and patient, she has had about 4 similar events till now, the first one started on May 2016, then in August 2016 and had one this August 2017, per daughter she has been worked up by Dr. Westbrook with EEG and video EEG and has not been able to capture seizure episodes in the past but per daughter she did not have those episodes when EEG was being done. MRI brain done during this admission showed possible PRES. Per patient she cannot swallow pills, she has been extensively worked up at [place] for her weight loss in the past, and nothing was found on the work up per patient, no records available with me at present. - Physical Exam General: Alert HEENT: Normocephalic Neck: Supple Lungs: Normal air movement Cardiovascular: Normal S1, Normal S2 Abdomen: Bowel Sounds Present Extremities: No cyanosis Skin: No rashes Musculoskeletal: No Tenderness to Palpation of Joints or Extremities Neurological: Cranial nerves II-XII grossly intact, Deep Tendon Reflexes 2+/4 and Symmetrical, Neuro grossly intact, Motor Exam 5/5 strength throughout, Muscle tone normal, Sensory exam intact to light touch and pain, Coordination normal Psych/Mental Status: Normal Affect Vital Signs Temp Pulse Resp BP Pulse Ox 99.1 F 82 18 132/60 H 96 02/18/18 13:27 02/18/18 13:27 02/18/18 13:27 02/18/18 13:27 02/18/18 13:27 Oxygen Flow Rate (L/min) 2 Oxygen Delivery Method Room Air Weight: 68 kg Body Mass Index (BMI) 24.9 Intake and Output for Last 24 Hours 02/16/18 02/17/18 02/18/18 23:59 23:59 23:59 Intake Total 1639 / 1639 2543 / 2543 Balance 1639 / 1639 2543 / 2543 Laboratory Tests Past 24 Hrs 02/18/18 06:10 Sodium 143 Potassium 3.8 Chloride 110 H Carbon Dioxide 28.0 Anion Gap 5 BUN 5 L Creatinine 0.61 Estim Creat Clear Calc 49.80 Est GFR (MDRD) Af Amer 126 Est GFR (MDRD) Non-Af 104 BUN/Creatinine Ratio 8.2 L Glucose 94 Calcium 8.6 Medical Necessity - Tobacco Use Smoking Status: Former smoker Tobacco Use: Cigarettes Assessment/Plan All Active Problems Seizure (Acute) Influenza A (Acute) Mental status change (Acute) The patient is a 67 year old CF with PMH HTN, RA, Depression/anxiety, Narcolepsy, Hepatitis C, Von Willebrand disease admitted with seizures. Per patient she does not remember the reason she is in the hospital. Per documentation, patient was in the bed around 1 AM (02/17/18) when she let our a scream and the noticed whole body GTCs, that lasted for about 10 minutes, was postictal, had another seizure lasting for about 5 minutes, had tongue bite and continued to be post ictal on admission. Per documentation she had first seizure in 2015, then had another one about 8 months ago, was not on any AED at home, was loaded with Keppra 1 g on arrival. At present there is no documentation of fever, VALVERDE, visual disturbances, focal motor weakness or sensory loss. CT head done on admission reported negative. Per patient she does not drive. Impression Seizure Possible PRES Plan -MRI brain w/w/o contrast-reviewed- possible PRES -EEG-nothing epileptiform -Keppra 7.5 ml PO BID. Per patient she cannot swallow pills -Labs odhkyckf-DMZ-87.5, NA-134, UA neg, UDS-negative -Better BP control, goal BP < 120/80 mmHg, will defer to primary team. -Seizure precautions -No driving for 6 months -Further medical management per primary team -GI/DVT prophylaxis -PT/OT -Fall precautions -Further medical management per primary team -Please follow up with Neurology as outpatient in about 4-6 weeks. Will need repeat MRI brain w/o contrast at that time. -Please call with questions if any -Thank you for allowing us to participate in patient's care and management I spent 30 minutes taking history, doing physical examination, reviewing medical records, coordinating care and counseling the patient and her daughter.
--- NOTE | 2018-02-19 16:06 | CASEMGMT ---
NIEVES BRADLEY Discharge Follow-up Phone Call: DESEAN: Satya Strata: 3 Call Date: 02/19/18 Discharge Date: 02/18/18 Time of Call: 1605 Duration: 3 min Admitting Diagnosis: Mental status Change Seizure NIEVES BRADLEY completed follow-up phone call after recent hospitalization. Patient states that she is not as dizzy. Patient denied questions or concerns regarding discharge instructions. When asked if she picked up her prescription for Keppra, patient stated she did not want to take it and did not pick it up. NIEVES BRADLEY spoke with daughter and expressed importance of taking Keppra for seizure prevention and that if she does not take the Keppra she is at risk for having a seizure and potential complications. Daughter expressed understanding and stated that they would follow-up with Dr. Bravo on Friday and would discuss medication then. NIEVES BRADLEY encouraged daughter to at least cherry picker operator the Keppra from pharmacy and attempt to give to patient.
== END 2018-02-18 13:48 | disposition home or self-care (01) | DRG 100 ==
LOC: ED 04:29 → PCU 05:55
PROVIDERS: Admitting Provider Family Medicine; Emergency Provider Emergency Medicine; Family Provider Family Medicine; PCP Family Medicine; Visit Provider Family Medicine
DX: R56.9 Unspecified convulsions (principal); I67.83 Posterior reversible encephalopathy syndrome; D68.0 Von Willebrand disease; M06.9 Rheumatoid arthritis, unspecified; I10 Essential (primary) hypertension; B18.2 Chronic viral hepatitis C; F41.9 Anxiety disorder, unspecified; F32.9 Major depressive disorder, single episode, unspecified; G47.419 Narcolepsy without cataplexy; K21.9 Gastro-esophageal reflux disease without esophagitis; Z87.891 Personal history of nicotine dependence
CPT/HCPCS: 36415; 70450; 70553; 80048; 80053; 80307; 80320; 81001; 83735; 84443; 84484; 85025; 93005; 95819; 97802; 99285; A9585; J7030; P9612; A4216; G0480

== ENCOUNTER → 2018-02-27 12:34 | Outpatient (CLI) | payer MEDICARE, OTHER, SELFPAY ==
[2018-02-27 15:22] LABS: Anion Gap 7 (5-15); BUN 8 mg/dL (7-18); Calcium,Total 9.6 mg/dL (8.5-10.1); Chloride 105 mmol/L (98-107); Creatinine, Serum 0.88 mg/dL (0.55-1.02); EST Glomerular Filtration Rate 68 mL/min (>60); Est Glom Filt Rate - Afr Amer 82 mL/min (>60); Glucose 119 mg/dL (74-106); Potassium 3.5 mmol/L (3.5-5.1); Sodium Level 143 mmol/L (136-145)
[2018-02-27 15:31] LABS: Vitamin D,25 Hydroxy 51.9 ng/mL (29.95-100.01)
== END ==
PROVIDERS: Family Provider Family Medicine; PCP Family Medicine; Visit Provider Family Medicine
DX: E55.9 Vitamin D deficiency, unspecified (principal); E87.6 Hypokalemia
CPT/HCPCS: 36415; 80048; 82306

== ENCOUNTER → 2018-04-07 11:48 | Outpatient (CLI) | payer MEDICARE, OTHER, SELFPAY ==
[2018-04-07 14:00] LABS: Anion Gap 10 (5-15); BUN 5 mg/dL (7-18); BUN/Creat Ratio 6.2 RATIO (10-20); Calcium,Total 9.2 mg/dL (8.5-10.1); Chloride 102 mmol/L (98-107); Creatinine, Serum 0.81 mg/dL (0.55-1.02); EST Glomerular Filtration Rate 75 mL/min (>60); Est Glom Filt Rate - Afr Amer 91 mL/min (>60); Glucose 92 mg/dL (74-106); Potassium 4.2 mmol/L (3.5-5.1); Sodium Level 139 mmol/L (136-145)
== END ==
PROVIDERS: Family Provider Family Medicine; PCP Family Medicine; Visit Provider Family Medicine
DX: E87.6 Hypokalemia (principal)
CPT/HCPCS: 36415; 80048

== ENCOUNTER 2018-06-26 18:44 | Inpatient (IN) | payer MEDICARE, OTHER, SELFPAY ==
[2018-06-26] VITALS (9 sets, daily range): BP systolic 92–153; BP diastolic 52–88; PULSE 71–121; RESP 16–22; TEMP 37; O2SAT 81–100; BMI 20.4
--- NOTE | 2018-06-26 18:50 | ED.RN ---
SEIZURE NOTED UPON ARRIVAL TO ER. DR MOORE AND DR SPRAGUE AT BEDSIDE.
[2018-06-26] MEDS: LORazepam 2 MG/ML Syringe IV (18:51)
--- NOTE | 2018-06-26 18:52 | CT_ITS ---
STUDY: CT BRAIN WITHOUT CONTRAST REASON FOR EXAM: Female, 67 years old. Seizures RADIATION DOSAGE (If Supplied By Facility): CTDIvol = ( 44.99 ) mGy, DLP = ( 779.24 ) mGycm TECHNIQUE: Transaxial CT imaging of the brain was performed without administration of intravenous contrast material. Individualized dose optimization techniques were used for this CT. COMPARISON: February 17, 2018 FINDINGS: Normal soft tissue structures. Normal calvarium. Normal size ventricles and extra-axial spaces for the patient's age. Minor periventricular white matter ischemic changes.. Normal basal ganglia and thalami. Normal brainstem. Normal cerebellum. There is no intracranial hemorrhage. There are no findings of an acute ischemic infarction. Normal visualized paranasal sinuses. No significant change since prior exam CT/Brain/Head without Contrast IMPRESSION: Minor periventricular white matter ischemic changes MRI would be helpful for further evaluation if clinically warranted Electronically Signed: Akbar Jo MD at 21:02 EST , Service support ,
--- NOTE | 2018-06-26 18:53 | EKG12_ITS ---
Test Reason : REPEAT Blood Pressure : / mmHG Vent. Rate : 094 BPM Atrial Rate : 094 BPM P-R Int : 136 ms QRS Dur : 076 ms QT Int : 356 ms P-R-T Axes : 077 -51 057 degrees QTc Int : 445 ms Normal sinus rhythm Left axis deviation Nonspecific ST abnormality Abnormal ECG Confirmed by HEMRAN PICHARDO, JUAN J ([id number]), script editor JACKIE NORIEGA ([id number]) on 06/29/2018 10:56:25 AM Referred By: LIZETT Confirmed By:JUAN J SUTTON MD
--- NOTE | 2018-06-26 18:56 | RAD_ITS ---
STUDY: X-RAY CHEST REASON FOR EXAM: Female, 67 years old. Seizure, now unresponsive. TECHNIQUE: Single AP portable supine view of the chest. The patient is mildly rotated to the right COMPARISON: PA and lateral chest x-ray August 13, 2017. FINDINGS: The lungs are normally expanded. There are ill-defined alveolar densities in the upper lung zones, greater on the right, and possibly in the medial right base, worrisome for pneumonia. Infiltrates secondary to aspiration might also have this appearance. Possible subcentimeter calcific granuloma versus pulmonary vessel seen end-on in the medial left base, projecting just lateral to the distal descending thoracic aorta. There is no demonstrated pleural abnormality. Normal size heart. Normal mediastinum and alis. Normal visualized pulmonary arteries. Normal visualized aortic arch and descending thoracic aorta. There are stable degenerative changes of the visualized thoracic spine. Normal visualized ribs, clavicles, and shoulders. There is no demonstrated abnormality of the visualized soft tissue structures of the upper abdomen. RAD/Chest 1 View (Portable) IMPRESSION: Bilateral infiltrates worrisome for pneumonia, predominating in the upper lobes. Electronically Signed: Steve Mars MD at 19:31 EST , Service support ,
--- NOTE | 2018-06-26 19:00 | ED.DCSUM_ITS ---
- ER Visit Summary Date of Service: 06/26/18 Chief Complaint: Unresponsive History of Present Illness: The patient is a 67 F presenting per EMS with unresponsiveness. Patient's family states she went to take a nap at 4 PM, 3 hours prior to arrival and she would not wake up. EMS was called. Her pulse ox was 75% on their arrival. Shortly after she arrived to the ED she started seizing. stated that she took herself off Keppra several months ago. She has had 4 seizures today. Physical Examination: Vitals are stable. Pulse ox 96% on nonrebreather, patient is afebrile. Postictal HEENT exam is unremarkable. Neck is supple. Lungs are clear and equal bilaterally. Heart is regular tachycardic Abdomen is soft nontender nondistended. Extremities are unremarkable. Skin is warm and dry Postictal Remainder of exam is unremarkable. Emergency Department Course and Treatment: Patient was given Ativan IV. She was started on Dilantin drip. EKG is A. fib rate of 115. CBC shows white count 16.7, hemoglobin 11.7. Chemistries show sodium 135. Urinalysis unremarkable. Troponin 0.049. Chest x-ray shows bilateral upper lobe infiltrates. Family states she has had a cough for the past couple of days. She is given Rocephin and Zithromax IV. Blood cultures were sent prior to antibiotics. Tox and alcohol are negative. Discussed with the hospitalist for admission. Disposition: Admission Impression: Seizure, noncompliance, pneumonia, A. fib with RVR This note was generated with [employer] dictation software. It may contain incorrect words, spelling, and punctuation that were not noted in review of the chart prior to signing ED Disposition - Plan for ED Patient: Chief Complaint: Seizure Referrals: Robert Patel MD [Primary Care Provider] -
[2018-06-26] MEDS: 0.9% Normal Saline 1,000 ML 1000 ML IV (19:26)
[2018-06-26 19:31] LABS: Allen Test POS; Base Excess -7 mmol/L (-2 to +2); Bicarbonate 19.9 mmol/L (22-26); Blood Gas Specimen Type ART; O2 Delivery Device NRB Mask; PO2 83 mmHG (75-100); SITE L Radial; SO2 95 % (95-99); Time Given 1915; Total Carbon Dioxide 21 mmol/L; pCO2 42.6 mmHg (35-45); pH 7.28 (7.35-7.45)
[2018-06-26 19:35] LABS: Bacteria 0 SEEN /hpf (None Seen); Mucous, Urine 0 SEEN /hpf (<or=2+); Red Blood Cells-Urine 0 SEEN /hpf (0-5); Squamous Epithelial Cells - UA 0 SEEN /hpf (5-10); White Blood Cells 0 SEEN /hpf (0-5)
[2018-06-26 19:36] LABS: Color, Urine Yellow (Yellow); Glucose, Dipstick Normal (Normal); Ketone-Dipstick 15 mg/dl (Negative); Leukocyte Esterase-Dipstick Negative /ul (Negative); Nitrite-Dipstick Negative (Negative); Occult Blood-Urine Negative /ul (Negative); Protein-Dipstick 30 mg/dl (Negative); Urine Bilirubin Dipstick Negative (Negative); Urine Clarity Clear (Clear); Urine Urobilinogen Normal (Normal)
[2018-06-26 19:57] LABS: Amphetamine Urine VISTA NEGATIVE (<1000 ng/mL); Barbiturate Urine VISTA NEGATIVE (< 200 ng/mL); Benzodiazepine Urine VISTA NEGATIVE (< 200 ng/mL); Cocaine Urine VISTA NEGATIVE (< 300 ng/mL); Ecstacy Urine VISTA NEGATIVE (< 500 ng/mL); Methadone Urine VISTA NEGATIVE (< 300 ng/mL); PCP Urine VISTA NEGATIVE (< 25 ng/mL); THC Urine VISTA NEGATIVE (< 50 ng/mL); Vista UDS pH Range 6
[2018-06-26] MEDS: Ceftriaxone 1 GM/50 ML BAG IV (20:05)
[2018-06-26 20:15] LABS: Absolute Lymphocyte Count 0.88 X10^3/ul (0.83-4.51); Absolute Neutrophil Count 14.7 X10^3/uL (2.0-7.7); Basophil# 0.01 X10^3/uL; Basophil% 0.1 % (0-1); Eosinophil# 0.01 X10^3/uL; Eosinophils% 0.1 % (0-5); Hematocrit 36.6 % (37-47); Hemoglobin 11.7 g/dl (12.0-15.0); Lymphocyte # 0.88 X10^3/ul (4.0); Lymphocyte % 5.3 % (19-41); Mean Corpuscular Hgb 26.5 pg (27.0-32.0); Mean Corpuscular Volume 82.8 fL (81-99); Mean Platelet Vol. 11.4 fl (6.2-12.0); Monocyte# 1.03 X10^3/uL; Monocyte% 6.2 % (0-10); Neutrophil # 14.74 X10^3/uL (2.7-7.7); Neutrophil % 88.2 % (47-70); Platelet Count 268 K/mm3 (150-450); RBC Distribution Width CV 15.2 % (11.6-14.6); Red Blood Count 4.42 M/mm3 (4.2-5.4); White Blood Count 16.7 K/mm3 (4.4-11.0)
[2018-06-26 20:19] LABS: POSITIVE COUNT NO; POSITIVE DIFFERENTIAL NO; POSITIVE MORPHOLOGY NO
[2018-06-26 20:30] LABS: Anion Gap 9 (5-15); BUN 6 mg/dL (7-18); BUN/Creat Ratio 7.9 RATIO (10-20); Calcium,Total 8.3 mg/dL (8.5-10.1); Chloride 102 mmol/L (98-107); Creatinine, Serum 0.76 mg/dL (0.55-1.02); EST Glomerular Filtration Rate 81 mL/min (>60); Est Glom Filt Rate - Afr Amer 98 mL/min (>60); Estimated Creatinine Clearance 56.78 ml/min; Glucose 106 mg/dL (74-106); Magnesium 1.8 mg/dL (1.6-2.6); Potassium 3.6 mmol/L (3.5-5.1); Sodium Level 135 mmol/L (136-145)
[2018-06-26 20:38] LABS: Phosphorus 2.6 mg/dL (2.5-4.9)
[2018-06-26 20:47] LABS: Alcohol, Blood (Medical)-Serum < 3.0 mg/dL
--- NOTE | 2018-06-26 21:18 | PCM.HP.STD ---
Problem List (1) Sepsis Status: Acute Qualifiers: Sepsis type: sepsis due to unspecified organism Qualified Code(s): A41.9 - Sepsis, unspecified organism (2) Acute respiratory failure with hypoxia Status: Acute (3) Pneumonia Status: Acute Qualifiers: Pneumonia type: due to unspecified organism Laterality: bilateral Lung location: upper lobe of lung Qualified Code(s): J18.1 - Lobar pneumonia, unspecified organism (4) Cardiac enzymes elevated Status: Acute (5) PAF (paroxysmal atrial fibrillation) Status: Acute (6) Seizure Status: Acute (7) Anxiety and depression Status: Chronic (8) Narcolepsy Status: Chronic (9) Hep C Status: Chronic (10) Von Willebrand disease Status: Chronic (11) Gastroesophageal reflux disease Status: Chronic Qualifiers: Esophagitis presence: esophagitis presence not specified (12) Rheumatoid arthritis Status: Chronic Qualifiers: Rheumatoid arthritis location: unspecified site Rheumatoid factor presence: unspecified presence Qualified Code(s): M06.9 - Rheumatoid arthritis, unspecified History of Present Illness Date of Admission: 06/26/18 Chief Complaint: Seizures, recent cough, unresponsive. 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 ED on 06/26/18 with history of mildly productive cough, fatigue and malaise over the last 48 hours with onset of seizure activity over the last 24 hours w/ upon family attempted awakening of patient after napping from 4 pm-7 pm inability to awaken her suspected secondary to post-ictal status. Upon ED presentation, patient had onset tonic clonic seizure and was administered ativan IV with resolution. Family present noted she had taken herself off of several of her medications in March secondary to medication side effects including her seizure medications. Workup in the ED included T 98.6, heart rate 115, BP 153/81, respiratory rate 19, 81% on room air initially--> 96% on nonrebreather, CBC with WBC 16.7, hemoglobin 11.7, platelet 268 with left shift, ABG with pH 7.28, bicarb 19.9 otherwise not market appearing and obtained following administration of nonrebreather 15 L flow, CMP with sodium 135, troponin 0.049, urinalysis with specific gravity 1.020 otherwise not market appearing, urine drug screen unremarkable, alcohol unremarkable, CT brain with minor periventricular white matter ischemic changes, chest x-ray with bilateral infiltrates worrisome for pneumonia predominating in the upper lobes, EKG with atrial fibrillation rate controlled with no prior history noted. In ED patient administered normal saline, IV Ativan, phenytoin IV, Rocephin and azithromycin. Past Medical History Past Medical History (Chronic Problems): Chronic Problems Anxiety and depression (Chronic) Narcolepsy (Chronic) Hep C (Chronic) Von Willebrand disease (Chronic) Gastroesophageal reflux disease (Chronic) Rheumatoid arthritis (Chronic) Allergies codeine Allergy (Verified 06/26/18 18:49) Hives morphine Allergy (Verified 06/26/18 18:49) Hives Opioids - Morphine Analogues Allergy (Verified 06/26/18 18:49) Hives amicar Adverse Reaction (Uncoded 06/26/18 18:49) Other sassafrass Adverse Reaction (Uncoded 06/26/18 18:49) Nausea/Vom/Diarrhea Home Medications: Ambulatory Orders Medication Instructions Recorded Lisinopril [Zestril] 10 mg PO DAILY 05/18/16 Omeprazole [Prilosec] 40 mg PO BID 05/18/16 Alendronate Sodium [Fosamax] 10 mg PO DAILY@0700 06/26/18 Potassium Chloride 20 meq PO BID 06/26/18 Surgical History: - - L Breast biopsy, D&C, Cholecystectomy, Appendectomy. 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 Paternal History Items: - - No marked paternal family history including HD, DM, CA. Review of Systems Constitutional: Reports: Anorexia, Malaise, Weakness, Fatigue. Denies: Chills, Fever, Weight Change HEENT: Denies: Head Aches, Sinus Congestion, Sinus Drainage Cardiovascular: Denies: Chest Pain, Palpitations Respiratory: Reports: Cough, Sputum production. Denies: Shortness of breath at rest Gastrointestinal: Denies: Abdominal Pain, Nausea, Vomiting Genitourinary: Denies: Dysuria Musculoskeletal: Denies: Joint Pain, Joint Tenderness Skin: Denies: Rash, Wounds Neurological: Reports: Seizures. Denies: Focal weakness, Numbness, Tingling Psychiatric: Reports: Anxiety, Depression. Denies: Homicidal Ideations, Suicidal Ideations Hematologic/ Lymphatic: Reports: Easy Bruising, Easy Bleeding Comment: ROS obtained per family present. Patient post-ictal and unable to give ROS information. VTE Information - Inpt Only VTE Present on Admission: No VTE Mechan Device Prophylaxis: SCD's VTE Pharm Prophylaxis ordered?: Yes Patient Problems: Active and Suspected Problems Cardiac enzymes elevated (Acute) PAF (paroxysmal atrial fibrillation) (Acute) Pneumonia (Acute) Sepsis (Acute) Acute respiratory failure with hypoxia (Acute) Subjective: Laying in the ED bed, still lethargic, post-ictal, respiratory status improved from initial ED presentation, NRB in place. Objective: Physical Examination: General: awakes intermittently, not alert, not oriented, post-ictal, unable to follow any commands, laying in the ED bed. Skin: normal color, turgor, no icterus, cyanosis. HEENT: AT/NC, EOM unable to be assessed, PERRLA, dry MM, no carotid bruits or JVD noted. Lungs: BL diminished, poor effort, R > L anterior and laterally coarse BS, no wheezing, still mildly increased RR, some accessory muscle usage, improved from initial ED presentation. Heart: Irregular irregular; no gallop, rub audible. Abdomen: soft, NTTP, ND, normal BS, no HSM. Extremities: no cyanosis, clubbing, or edema. Neurological: awakes intermittently, not alert, not oriented, post-ictal, unable to follow any commands, laying in the ED bed; cognitive function not baseline intact; pupils equally reactive to light and accomodation; cranial nerves unable to be assessed in detail but grossly appear normal secondary to post-ictal status, moving all 4 extremities, strength severely globally decreased. Psychiatric: affect appears flat, sedate, no acute evidence of depressive or anxiety feelings. - Physical Exam Vital Signs Temp Pulse Resp BP Pulse Ox 98.6 F 88 22 H 105/62 98 06/26/18 18:45 06/26/18 21:08 06/26/18 21:08 06/26/18 21:08 06/26/18 21:08 Oxygen Flow Rate (L/min) 15 Oxygen Delivery Method Non-Rebreather Weight: 143 lb 4.807 oz Body Mass Index (BMI) 0.0 Finger Stick Blood Glucose 117 Laboratory Tests Past 24 Hrs 06/26/18 06/26/18 06/26/18 15:34 15:34 19:25 WBC RBC Hgb Hct MCV MCH MCHC RDW RDW Differential Plt Count MPV Immature Gran % (Auto) Neut % (Auto) Lymph % (Auto) Foard % (Auto) Eos % (Auto) Baso % (Auto) Absolute Neuts (auto) Absolute Lymphs (auto) Total Counted Specimen Type ART Sample Site L Radial pH 7.28 L Bicarbonate Actual 19.9 L POC Total CO2 21 Base Excess -7 L O2 Saturation 95 ABG pCO2 42.6 ABG pO2 83 Montez Test POS O2 Delivery Device NRB Mask Liter Flow 15.0 Blood Gas Notified Whom ED Blood Gas Notified Time 191 Sodium Potassium Chloride Carbon Dioxide Anion Gap BUN Creatinine Estim Creat Clear Calc Est GFR (MDRD) Af Amer Est GFR (MDRD) Non-Af BUN/Creatinine Ratio Glucose Calcium Phosphorus Magnesium Troponin I Urine Color Yellow Urine Clarity Clear Urine pH 6.0 Ur Specific [place] 1.020 Urine Protein 30 H Urine Glucose (UA) Normal Urine Ketones 15 H Urine Occult Blood Negative Urine Nitrite Negative Urine Bilirubin Negative Urine Urobilinogen Normal Ur Leukocyte Esterase Negative Urine RBC 0 SEEN Urine WBC 0 SEEN Ur Squamous Epith Cells 0 SEEN Urine Bacteria 0 SEEN Urine Mucus 0 SEEN Urine Opiates Screen NEGATIVE Urine Methadone Screen NEGATIVE Ur Barbiturates Screen NEGATIVE Ur Phencyclidine Scrn NEGATIVE Ur Amphetamines Screen NEGATIVE U Methamphetamin-MDMA NEGATIVE U Benzodiazepines Scrn NEGATIVE Urine Cocaine Screen NEGATIVE U Cannabinoids Screen NEGATIVE Ur Drug Screen Comment Ethyl Alcohol 06/26/18 06/26/18 06/26/18 20:02 20:02 20:02 WBC 16.7 H RBC 4.42 Hgb 11.7 L Hct 36.6 L MCV 82.8 MCH 26.5 L MCHC 32.0 RDW 15.2 H RDW Differential 46.0 H Plt Count 268 MPV 11.4 Immature Gran % (Auto) 0.100 Neut % (Auto) 88.2 H Lymph % (Auto) 5.3 L Foard % (Auto) 6.2 Eos % (Auto) 0.1 Baso % (Auto) 0.1 Absolute Neuts (auto) 14.7 H Absolute Lymphs (auto) 0.88 Total Counted Not Reportable Specimen Type Sample Site pH Bicarbonate Actual POC Total CO2 Base Excess O2 Saturation ABG pCO2 ABG pO2 Montez Test O2 Delivery Device Liter Flow Blood Gas Notified Whom Blood Gas Notified Time Sodium 135 L Potassium 3.6 Chloride 102 Carbon Dioxide 24.0 Anion Gap 9 BUN 6 L Creatinine 0.76 Estim Creat Clear Calc 56.78 Est GFR (MDRD) Af Amer 98 Est GFR (MDRD) Non-Af 81 BUN/Creatinine Ratio 7.9 L Glucose 106 Calcium 8.3 L Phosphorus Magnesium 1.8 Troponin I 0.049 H Urine Color Urine Clarity Urine pH Ur Specific [place] Urine Protein Urine Glucose (UA) Urine Ketones Urine Occult Blood Urine Nitrite Urine Bilirubin Urine Urobilinogen Ur Leukocyte Esterase Urine RBC Urine WBC Ur Squamous Epith Cells Urine Bacteria Urine Mucus Urine Opiates Screen Urine Methadone Screen Ur Barbiturates Screen Ur Phencyclidine Scrn Ur Amphetamines Screen U Methamphetamin-MDMA U Benzodiazepines Scrn Urine Cocaine Screen U Cannabinoids Screen Ur Drug Screen Comment Ethyl Alcohol < 3.0 06/26/18 20:02 WBC RBC Hgb Hct MCV MCH MCHC RDW RDW Differential Plt Count MPV Immature Gran % (Auto) Neut % (Auto) Lymph % (Auto) Foard % (Auto) Eos % (Auto) Baso % (Auto) Absolute Neuts (auto) Absolute Lymphs (auto) Total Counted Specimen Type Sample Site pH Bicarbonate Actual POC Total CO2 Base Excess O2 Saturation ABG pCO2 ABG pO2 Montez Test O2 Delivery Device Liter Flow Blood Gas Notified Whom Blood Gas Notified Time Sodium Potassium Chloride Carbon Dioxide Anion Gap BUN Creatinine Estim Creat Clear Calc Est GFR (MDRD) Af Amer Est GFR (MDRD) Non-Af BUN/Creatinine Ratio Glucose Calcium Phosphorus 2.6 Magnesium Troponin I Urine Color Urine Clarity Urine pH Ur Specific [place] Urine Protein Urine Glucose (UA) Urine Ketones Urine Occult Blood Urine Nitrite Urine Bilirubin Urine Urobilinogen Ur Leukocyte Esterase Urine RBC Urine WBC Ur Squamous Epith Cells Urine Bacteria Urine Mucus Urine Opiates Screen Urine Methadone Screen Ur Barbiturates Screen Ur Phencyclidine Scrn Ur Amphetamines Screen U Methamphetamin-MDMA U Benzodiazepines Scrn Urine Cocaine Screen U Cannabinoids Screen Ur Drug Screen Comment Ethyl Alcohol Assessment/Plan All Active Problems Seizure (Acute) Cardiac enzymes elevated (Acute) PAF (paroxysmal atrial fibrillation) (Acute) Pneumonia (Acute) Sepsis (Acute) Acute respiratory failure with hypoxia (Acute) Influenza A (Acute) Mental status change (Acute) The patient is a 67 y/o F w/ PMHx: History of Generalized Tonic-Clonic Seizure Seizure History not on AED secondary to taking herself off regimen, 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 ED on 06/26/18 with history of mildly productive cough, fatigue and malaise over the last 48 hours with onset of seizure activity over the last 24 hours w/ upon family attempted awakening of patient after napping from 4 pm-7 pm inability to awaken her suspected secondary to post-ictal status. (1) Acute Sepsis secondary to Acute Hypoxic Respiratory Failure secondary to Suspected Aspiration Pneumonia secondary to recent Tonic Clonic Seizures and possible Prior CAP: Will admit to ICU, maintain on NRB, given current acute presentation w/ repeat seizures, hesitant to utilize CPAP, transition to NC as tolerated, continue ATC duonebs, PRN albuterol, maintain on IV Zosyn w/ pending MRSA assessment, HOB, IS parameters w/ pending sputum cultures, respiratory viral panel and urine antigens. Bld cx x 2 obtained in the ED. ICU physician consulted. (2) Paroxsymal atrial fibrillation, Rate Controlled w/ Indeterminant Cardiac Enzyme: EKG in ED w/ atrial fibrillation, rate controlled in the ED, no noted prior history. Will maintain on telemetry, obtain cardiac enzyme serial set, obtain magnesium level, obtain ECHO, obtain TSH level. Will place on therapeutic lovenox. Suspect onset secondary to acute presentation #1, hypoxia, recent seizures. Will continue to monitor and if does not convert would plan consultation w/ Cardiology. (3) Seizure, Tonic Clonic: Noted to have taken herself off of her AED Keppra secondary to lethargy in ~ March, onset family noted seizure activity at least 4x over the last day with additional episode upon ED presentation, suspect was having seizures prior and aspirated with acute #1 as noted, will maintain on dilantin given family/patient complaint of lethargy and sedation with keppra, Neurology consulted, given onset seizures secondary to non-compliance with AEDs defer repeat MRI brain, will obtain EEG in AM per ICU physician request, obtain Mag, TSH levels, maintain on seizure precautions, PRN IV ativan. (4) Rheumatoid Arthritis: Previous on chronic prednisone therapy, family notes she was weaned off and has been off for several months, defer stress dosing given this history. (5) Hypertension: PRN hydralazine. (6) Von Willebrand disease: Given current presentation, will place on chemoprophylaxis, but given history if any bleeding concerns will need to hold, unclear specific type of disease status. (7) Hepatitis C, Chronic: Encourage continued GI/ID evaluation and follow-up outpatient. (8) Depression and Anxiety: Not on regimen, encourage PCP follow-up. (9) Narcolepsy: Not on any medication, unclear if following w/ Neurology/Sleep medicine. (10) GERD: IV PPI. (11) DVT Prophylaxis: SCDs, therapeutic lovenox. (12) CODE status: Discussed CODE status at length with family including difference between FULL code, DNR-CCA and DNR-CC status. Following discussions about the differences in these status, requested Full Code status. Advanced Care Planning Face to Face Time: 16 minutes. Code Visit Inpatient E&M: 36376 Init Hosp L3 Procedures: 98092 Advncd Care Plan 30 Min
[2018-06-26] MEDS: LORazepam 2 MG/ML Syringe 1 MG IV (21:28)
--- NOTE | 2018-06-26 21:32 | ED.RN ---
PT BECAME AGITATED, DIFFICULT TO REDIRECT, NOT FULLY AWAKE BUT SITTING UP IN BED, PULLING AT IV, CATHETER. ATIVAN GIVEN FOR AGITATION.
--- NOTE | 2018-06-26 22:11 | ED.RN ---
DR SPRAGUE NOTIFIED OF LACTIC ACID RESULTS
--- NOTE | 2018-06-26 22:21 | ED.RN ---
PT RESTING QUIETLY WITH EYES CLOSED, NO SIGNS OF DISTRESS, DAUGHTER AT BEDSIDE.
--- NOTE | 2018-06-26 23:04 | ECHOD_ITS ---
Reason For Study: Arrhythmia Procedure This was a 2D Doppler, Color Flow transthoracic echocardiogram. Exam performed portable in ICU/CCU. Left Ventricle Normal LV size. Left ventricular systolic function is normal. The estimated ejection fraction is 55 %. Stage 1 diastolic dysfunction. No regional wall motion abnormalities noted. Right Ventricle Normal RV size. Normal systolic function. Atria Normal left atrium. Normal right atrium. Mitral Valve Normal mitral valve. Tricuspid Valve Normal tricuspid valve. Mild (1+) tricuspid valve insufficiency. Pulmonary artery systolic pressure is 31 mmHg. Aortic Valve Normal aortic valve. Trisinus/trileaflet aortic valve. Pulmonic Valve Normal pulmonic valve. Great Vessels Normal aortic root. The pulmonary artery is normal size. Normal inferior vena cava. Pericardium/Pleural No pericardial effusion. MMode/2D Measurements & Calculations LVIDd: 3.8 cm IVSd: 0.76 cm Ao root diam: 3.0 cm LVIDs: 3.0 cm LVPWd: 1.3 cm RVDd: 3.4 cm FS: 21.7 % LAV(MOD-bp): 55.4 ml LA A4 area: 19.5 cm2 RA A4 area: 14.5 cm2 LAV(MOD-bp) Indexed: 34.6 ml/m2 LAV(MOD-sp2): 47.3 ml LAV(MOD-sp4): 59.7 ml Time Measurements MV dec time: 0.20 sec Doppler Measurements & Calculations MV E max khadar: 117.6 cm/sec Med Peak E' Khadar: 8.3 cm/sec MV V2 max: 140.6 cm/sec MV A max khadar: 130.5 cm/sec E/E' med: 14.2 MV max P.9 mmHg MV E/A: 0.90 MV V2 mean: 69.5 cm/sec MV mean P.4 mmHg MV V2 VTI: 28.2 cm Ao V2 max: 158.9 cm/sec LV V1 max: 132.1 cm/sec PA V2 max: 107.9 cm/sec Ao max P.1 mmHg LV V1 max P.0 mmHg Ao V2 mean: 102.8 cm/sec LV V1 mean P.4 mmHg Ao mean P.8 mmHg LV V1 mean: 85.6 cm/sec Ao V2 VTI: 29.3 cm LV V1 VTI: 23.2 cm TR max khadar: 257.6 cm/sec TR max P.5 mmHg Interpretation Summary Normal LV size. Left ventricular systolic function is normal. The estimated ejection fraction is 55 %. Stage 1 diastolic dysfunction. Structurally normal valves. Ordering Physician: Jennifer Coleman Performed By: Nj Dominguez RCS
[2018-06-26] MEDS: 0.9% Normal Saline 1,000 ML 125 ML IV (23:18)
[2018-06-27] VITALS (33 sets, daily range): BP systolic 88–138; BP diastolic 51–71; PULSE 72–96; RESP 16–33; TEMP 37–38.5; O2SAT 90–100
[2018-06-27] MEDS: Enoxaparin 80 MG/0.8 ML Syringe 70 MG SC (00:01)
[2018-06-27] MEDS: 0.9% NaCl IVPB Med Flush (250 mL) 15 ML IV ×2 (00:01→14:46)
[2018-06-27 00:07] LABS: Magnesium 1.8 mg/dL (1.6-2.6); T4 Free Direct 0.83 ng/dL (0.76-1.46); Thyroid Stim Hormone (TSH) 1.56 uIU/mL (0.358-3.74)
--- NOTE | 2018-06-27 00:15 | EKG12_ITS ---
Test Reason : AM EKG Blood Pressure : / mmHG Vent. Rate : 079 BPM Atrial Rate : 079 BPM P-R Int : 142 ms QRS Dur : 086 ms QT Int : 412 ms P-R-T Axes : 070 -51 074 degrees QTc Int : 472 ms Normal sinus rhythm Left axis deviation Abnormal ECG When compared with ECG of 17-FEB-2018 03:22, Nonspecific T wave abnormality now evident in Lateral leads Confirmed by HERMAN PICHARDO, JUAN J ([id number]), editor managing newspaper JACKIE NORIEGA ([id number]) on 06/30/2018 4:13:06 PM Referred By: LIZETT Confirmed By:JUAN J SUTTON MD
[2018-06-27] MEDS: Piperacil/Tazobactam 3.375 GM/50 ML ML IV ×4 (00:32→22:38)
[2018-06-27 01:35] LABS: Reflex Lactate? Y
[2018-06-27 01:39] LABS: M R Staph aureus DNA By PCR Negative (Negative); Probe Check PASS; Specimen Processing Control PASS
[2018-06-27] MEDS: 0.9% NaCl Peripheral Flush Adult/Peds IV ×3 (04:31→14:46)
[2018-06-27 04:54] LABS: Absolute Lymphocyte Count 1.02 X10^3/ul (0.83-4.51); Absolute Neutrophil Count 10.9 X10^3/uL (2.0-7.7); Basophil# 0.01 X10^3/uL; Basophil% 0.1 % (0-1); Eosinophil# 0.01 X10^3/uL; Eosinophils% 0.1 % (0-5); Hematocrit 32.9 % (37-47); Hemoglobin 10.5 g/dl (12.0-15.0); Lymphocyte # 1.02 X10^3/ul (4.0); Lymphocyte % 8.3 % (19-41); Mean Corp Hgb Conc 31.9 g/gl (32-36); Mean Corpuscular Hgb 26.5 pg (27.0-32.0); Mean Corpuscular Volume 83.1 fL (81-99); Mean Platelet Vol. 11.7 fl (6.2-12.0); Monocyte# 0.32 X10^3/uL; Monocyte% 2.6 % (0-10); Neutrophil # 10.93 X10^3/uL (2.7-7.7); Neutrophil % 88.7 % (47-70); Platelet Count 241 K/mm3 (150-450); RBC Distribution Width CV 15.3 % (11.6-14.6); RBC Distribution Width SD 46.5 fl (35.1-43.9); Red Blood Count 3.96 M/mm3 (4.2-5.4); White Blood Count 12.3 K/mm3 (4.4-11.0)
[2018-06-27 05:02] LABS: POSITIVE COUNT NO; POSITIVE DIFFERENTIAL NO; POSITIVE MORPHOLOGY NO
[2018-06-27 05:04] LABS: Anion Gap 9 (5-15); BUN 6 mg/dL (7-18); Calcium,Total 7.7 mg/dL (8.5-10.1); Chloride 102 mmol/L (98-107); EST Glomerular Filtration Rate 106 mL/min (>60); Est Glom Filt Rate - Afr Amer 128 mL/min (>60); Estimated Creatinine Clearance 48.57 ml/min; Glucose 100 mg/dL (74-106); Magnesium 1.9 mg/dL (1.6-2.6); Potassium 3.5 mmol/L (3.5-5.1); Sodium Level 136 mmol/L (136-145)
[2018-06-27 05:07] LABS: Phosphorus 2.9 mg/dL (2.5-4.9)
[2018-06-27] MEDS: 0.9% Normal Saline 1,000 ML 125 ML IV ×3 (05:42→21:11)
[2018-06-27] MEDS: Phenytoin Na 100 MG/2 ML Vial IV (05:44)
--- NOTE | 2018-06-27 05:55 | EKG12_ITS ---
Test Reason : SEIZURE,UNRESPONSIVE Blood Pressure : / mmHG Vent. Rate : 115 BPM Atrial Rate : 112 BPM P-R Int : 000 ms QRS Dur : 088 ms QT Int : 356 ms P-R-T Axes : 000 -25 067 degrees QTc Int : 492 ms Atrial fibrillation with rapid ventricular response Nonspecific ST and T wave abnormality Abnormal ECG Confirmed by HERMAN PICHARDO, JUAN J ([id number]), news videotape editor JACKIE NORIEGA ([id number]) on 06/29/2018 10:56:43 AM Referred By: CELESTINE Confirmed By:JUAN J SUTTON MD
--- NOTE | 2018-06-27 06:18 | PCM.CON.CC ---
Reason for Consult Date of Consultation: 06/27/18 Reason for Consultation: Respiratory failure, aspiration/CAP, seizures History of Present Illness: The patient is a 67-year-old female, with a history as outlined below, who presented to the emergency department on June 26 in an unresponsive state. The patient reportedly has a history of epilepsy but has been noncompliant with the use of antiepileptic medications. She reportedly became noncompliant with the use of Keppra, due to perceived side effects. History pertinent to the patient's hospitalization was obtained primarily via chart review, as the patient is currently intubated and there is no family available at the bedside. On presentation to the emergency department, the patient was noted to be afebrile, tachycardic and hypoxic on room air. Laboratory evaluation revealed an elevated white blood cell count to 16,000. Urinalysis was negative. Toxicology screen was negative. Chemistry profile was largely unremarkable. Troponin was mildly elevated to 0.051. Head CT revealed minor periventricular white matter ischemic changes. Per ED documentation, the patient reportedly had 4 seizures on the day of her arrival. It was documented that shortly upon her arrival to the emergency department, the patient again began seizing. She was treated with IV Ativan and started on a Dilantin drip. The patient's plain film chest x-ray did reveal evidence of bilateral upper lobe infiltrates. She was also incidentally noted to be in atrial fibrillation, which was transient in nature prior to converting back to normal sinus rhythm. The patient was started on ceftriaxone and azithromycin. Cultures were obtained. Neurology was consulted and the patient was subsequently transferred to the medical intensive care unit for ongoing management. Past Medical History Past Medical History (Chronic Problems): Chronic Problems Anxiety and depression (Chronic) Narcolepsy (Chronic) Hep C (Chronic) Von Willebrand disease (Chronic) Gastroesophageal reflux disease (Chronic) Rheumatoid arthritis (Chronic) Allergies codeine Allergy (Verified 06/26/18 18:49) Hives morphine Allergy (Verified 06/26/18 18:49) Hives Opioids - Morphine Analogues Allergy (Verified 06/26/18 18:49) Hives amicar Adverse Reaction (Uncoded 06/26/18 18:49) Other sassafrass Adverse Reaction (Uncoded 06/26/18 18:49) Nausea/Vom/Diarrhea Home Medications: Ambulatory Orders Medication Instructions Recorded Lisinopril [Zestril] 10 mg PO DAILY 05/18/16 Omeprazole [Prilosec] 40 mg PO BID 05/18/16 Alendronate Sodium [Fosamax] 10 mg PO DAILY@0700 06/26/18 Potassium Chloride 20 meq PO BID 06/26/18 Surgical History: - - L Breast biopsy, D&C, Cholecystectomy, Appendectomy. 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 Paternal History Items: - - No marked paternal family history including HD, DM, CA. Review of Systems Constitutional: Reports: Weakness, Fatigue Eyes: Denies: Blurred vision, Double vision HEENT: Denies: Head Aches, Sinus Congestion, Sinus Drainage Cardiovascular: Denies: Chest Pain, Palpitations Respiratory: Reports: Cough, Sputum production Gastrointestinal: Denies: Abdominal Pain, Nausea, Vomiting Genitourinary: Denies: Dysuria Musculoskeletal: Denies: Joint Pain, Joint Tenderness Skin: Denies: Rash, Wounds Neurological: Reports: Seizures Psychiatric: Reports: Anxiety, Depression Hematologic/ Lymphatic: Denies: Easy Bruising, Easy Bleeding Patient Problems: Active and Suspected Problems Cardiac enzymes elevated (Acute) PAF (paroxysmal atrial fibrillation) (Acute) Pneumonia (Acute) Sepsis (Acute) Acute respiratory failure with hypoxia (Acute) Objective: The patient's most recent lab work, culture data and imaging studies have all been personally reviewed. Strep and urine Legionella antigens were both negative. Respiratory viral panel was negative. Blood cultures are currently pending. - Physical Exam General: - - Arouses to verbal stimulation but remains confused. HEENT: Atraumatic, PERRLA, Normocephalic Oral: Dry Mucosa Neck: Supple, No Nodes, Trachea Midline Lungs: No rhonchi, No wheeze, No rales, Diminished Cardiovascular: Regular rate, Regular Rhythm, Normal S1, Normal S2, No murmurs Abdomen: Bowel Sounds Present, Soft, Non Tender Extremities: No clubbing, No cyanosis, No edema Skin: No breakdown Musculoskeletal: No Muscle Wasting Lymphatic: No Cervical, Supraclavicular, or Inguinal Adenopathy Neurological: - - Globally diminished musculoskeletal strength due to poor patient effort. The patient is still quite somnolent. Psych/Mental Status: Flat Affect Vital Signs Temp Pulse Resp BP Pulse Ox 37.8 C H 76 23 H 109/61 92 06/27/18 06:00 06/27/18 06:00 06/27/18 06:00 06/27/18 06:00 06/27/18 06:00 Oxygen Flow Rate (L/min) 3 Oxygen Delivery Method Nasal Cannula Weight: 122 lb 9.232 oz Body Mass Index (BMI) 20.4 Finger Stick Blood Glucose 117 Intake and Output for Last 24 Hours 06/25/18 06/26/18 06/27/18 23:59 23:59 23:59 Intake Total 1022 / 1022 Output Total 1000 / 1000 200 / 200 Balance -1000 / -1000 822 / 822 Microbiology Past 72 Hours 06/26/18 23:30 Streptococcus pneumoniae Antigen (M - Final Urine Catheter - Catheter 06/26/18 23:30 Legionella Antigen - Final Urine Catheter - Catheter Laboratory Tests Past 24 Hrs 06/26/18 06/26/18 06/26/18 15:34 15:34 19:25 WBC RBC Hgb Hct MCV MCH MCHC RDW RDW Differential Plt Count MPV Immature Gran % (Auto) Neut % (Auto) Lymph % (Auto) [place] % (Auto) Eos % (Auto) Baso % (Auto) Absolute Neuts (auto) Absolute Lymphs (auto) Total Counted Specimen Type ART Sample Site L Radial pH 7.28 L Bicarbonate Actual 19.9 L POC Total CO2 21 Base Excess -7 L O2 Saturation 95 ABG pCO2 42.6 ABG pO2 83 Montez Test POS O2 Delivery Device NRB Mask Liter Flow 15.0 Blood Gas Notified Whom ED Blood Gas Notified Time 1914 Sodium Potassium Chloride Carbon Dioxide Anion Gap BUN Creatinine Estim Creat Clear Calc Est GFR (MDRD) Af Amer Est GFR (MDRD) Non-Af BUN/Creatinine Ratio Glucose Lactic Acid Calcium Phosphorus Magnesium Troponin I TSH Free T4 Urine Color Yellow Urine Clarity Clear Urine pH 6.0 Ur Specific [place] 1.020 Urine Protein 30 H Urine Glucose (UA) Normal Urine Ketones 15 H Urine Occult Blood Negative Urine Nitrite Negative Urine Bilirubin Negative Urine Urobilinogen Normal Ur Leukocyte Esterase Negative Urine RBC 0 SEEN Urine WBC 0 SEEN Ur Squamous Epith Cells 0 SEEN Urine Bacteria 0 SEEN Urine Mucus 0 SEEN Urine Opiates Screen NEGATIVE Urine Methadone Screen NEGATIVE Ur Barbiturates Screen NEGATIVE Ur Phencyclidine Scrn NEGATIVE Ur Amphetamines Screen NEGATIVE U Methamphetamin-MDMA NEGATIVE U Benzodiazepines Scrn NEGATIVE Urine Cocaine Screen NEGATIVE U Cannabinoids Screen NEGATIVE Ur Drug Screen Comment Ethyl Alcohol MRSA (PCR) 06/26/18 06/26/18 06/26/18 20:02 20:02 20:02 WBC 16.7 H RBC 4.42 Hgb 11.7 L Hct 36.6 L MCV 82.8 MCH 26.5 L MCHC 32.0 RDW 15.2 H RDW Differential 46.0 H Plt Count 268 MPV 11.4 Immature Gran % (Auto) 0.100 Neut % (Auto) 88.2 H Lymph % (Auto) 5.3 L [place] % (Auto) 6.2 Eos % (Auto) 0.1 Baso % (Auto) 0.1 Absolute Neuts (auto) 14.7 H Absolute Lymphs (auto) 0.88 Total Counted Not Reportable Specimen Type Sample Site pH Bicarbonate Actual POC Total CO2 Base Excess O2 Saturation ABG pCO2 ABG pO2 Montez Test O2 Delivery Device Liter Flow Blood Gas Notified Whom Blood Gas Notified Time Sodium 135 L Potassium 3.6 Chloride 102 Carbon Dioxide 24.0 Anion Gap 9 BUN 6 L Creatinine 0.76 Estim Creat Clear Calc 56.78 Est GFR (MDRD) Af Amer 98 Est GFR (MDRD) Non-Af 81 BUN/Creatinine Ratio 7.9 L Glucose 106 Lactic Acid Calcium 8.3 L Phosphorus Magnesium 1.8 Troponin I 0.049 H TSH Free T4 Urine Color Urine Clarity Urine pH Ur Specific [place] Urine Protein Urine Glucose (UA) Urine Ketones Urine Occult Blood Urine Nitrite Urine Bilirubin Urine Urobilinogen Ur Leukocyte Esterase Urine RBC Urine WBC Ur Squamous Epith Cells Urine Bacteria Urine Mucus Urine Opiates Screen Urine Methadone Screen Ur Barbiturates Screen Ur Phencyclidine Scrn Ur Amphetamines Screen U Methamphetamin-MDMA U Benzodiazepines Scrn Urine Cocaine Screen U Cannabinoids Screen Ur Drug Screen Comment Ethyl Alcohol < 3.0 MRSA (PCR) 06/26/18 06/26/18 06/26/18 20:02 20:02 21:31 WBC RBC Hgb Hct MCV MCH MCHC RDW RDW Differential Plt Count MPV Immature Gran % (Auto) Neut % (Auto) Lymph % (Auto) [place] % (Auto) Eos % (Auto) Baso % (Auto) Absolute Neuts (auto) Absolute Lymphs (auto) Total Counted Specimen Type Sample Site pH Bicarbonate Actual POC Total CO2 Base Excess O2 Saturation ABG pCO2 ABG pO2 Montez Test O2 Delivery Device Liter Flow Blood Gas Notified Whom Blood Gas Notified Time Sodium Potassium Chloride Carbon Dioxide Anion Gap BUN Creatinine Estim Creat Clear Calc Est GFR (MDRD) Af Amer Est GFR (MDRD) Non-Af BUN/Creatinine Ratio Glucose Lactic Acid 2.0 Calcium Phosphorus 2.6 Magnesium 1.8 Troponin I TSH 1.56 Free T4 0.83 Urine Color Urine Clarity Urine pH Ur Specific [place] Urine Protein Urine Glucose (UA) Urine Ketones Urine Occult Blood Urine Nitrite Urine Bilirubin Urine Urobilinogen Ur Leukocyte Esterase Urine RBC Urine WBC Ur Squamous Epith Cells Urine Bacteria Urine Mucus Urine Opiates Screen Urine Methadone Screen Ur Barbiturates Screen Ur Phencyclidine Scrn Ur Amphetamines Screen U Methamphetamin-MDMA U Benzodiazepines Scrn Urine Cocaine Screen U Cannabinoids Screen Ur Drug Screen Comment Ethyl Alcohol MRSA (PCR) 06/26/18 06/26/18 06/27/18 23:30 23:30 02:20 WBC RBC Hgb Hct MCV MCH MCHC RDW RDW Differential Plt Count MPV Immature Gran % (Auto) Neut % (Auto) Lymph % (Auto) [place] % (Auto) Eos % (Auto) Baso % (Auto) Absolute Neuts (auto) Absolute Lymphs (auto) Total Counted Specimen Type Sample Site pH Bicarbonate Actual POC Total CO2 Base Excess O2 Saturation ABG pCO2 ABG pO2 Montez Test O2 Delivery Device Liter Flow Blood Gas Notified Whom Blood Gas Notified Time Sodium Potassium Chloride Carbon Dioxide Anion Gap BUN Creatinine Estim Creat Clear Calc Est GFR (MDRD) Af Amer Est GFR (MDRD) Non-Af BUN/Creatinine Ratio Glucose Lactic Acid Calcium Phosphorus Magnesium Troponin I 0.051 H 0.046 H TSH Free T4 Urine Color Urine Clarity Urine pH Ur Specific [place] Urine Protein Urine Glucose (UA) Urine Ketones Urine Occult Blood Urine Nitrite Urine Bilirubin Urine Urobilinogen Ur Leukocyte Esterase Urine RBC Urine WBC Ur Squamous Epith Cells Urine Bacteria Urine Mucus Urine Opiates Screen Urine Methadone Screen Ur Barbiturates Screen Ur Phencyclidine Scrn Ur Amphetamines Screen U Methamphetamin-MDMA U Benzodiazepines Scrn Urine Cocaine Screen U Cannabinoids Screen Ur Drug Screen Comment Ethyl Alcohol MRSA (PCR) Negative 06/27/18 06/27/18 06/27/18 04:30 04:30 04:30 WBC 12.3 H RBC 3.96 L Hgb 10.5 L Hct 32.9 L MCV 83.1 MCH 26.5 L MCHC 31.9 L RDW 15.3 H RDW Differential 46.5 H Plt Count 241 MPV 11.7 Immature Gran % (Auto) 0.200 Neut % (Auto) 88.7 H Lymph % (Auto) 8.3 L [place] % (Auto) 2.6 Eos % (Auto) 0.1 Baso % (Auto) 0.1 Absolute Neuts (auto) 10.9 H Absolute Lymphs (auto) 1.02 Total Counted Not Reportable Specimen Type Sample Site pH Bicarbonate Actual POC Total CO2 Base Excess O2 Saturation ABG pCO2 ABG pO2 Montez Test O2 Delivery Device Liter Flow Blood Gas Notified Whom Blood Gas Notified Time Sodium 136 Potassium 3.5 Chloride 102 Carbon Dioxide 25.0 Anion Gap 9 BUN 6 L Creatinine 0.60 Estim Creat Clear Calc 48.57 Est GFR (MDRD) Af Amer 128 Est GFR (MDRD) Non-Af 106 BUN/Creatinine Ratio 10.0 Glucose 100 Lactic Acid Calcium 7.7 L Phosphorus 2.9 Magnesium 1.9 Troponin I TSH Free T4 Urine Color Urine Clarity Urine pH Ur Specific [place] Urine Protein Urine Glucose (UA) Urine Ketones Urine Occult Blood Urine Nitrite Urine Bilirubin Urine Urobilinogen Ur Leukocyte Esterase Urine RBC Urine WBC Ur Squamous Epith Cells Urine Bacteria Urine Mucus Urine Opiates Screen Urine Methadone Screen Ur Barbiturates Screen Ur Phencyclidine Scrn Ur Amphetamines Screen U Methamphetamin-MDMA U Benzodiazepines Scrn Urine Cocaine Screen U Cannabinoids Screen Ur Drug Screen Comment Ethyl Alcohol MRSA (PCR) Clinical Impression(s) from Imaging Studies Brain CT 06/26/18 18:52 IMPRESSION: Minor periventricular white matter ischemic changes MRI would be helpful for further evaluation if clinically warranted Electronically Signed: Akbar Jo MD at 21:02 EST , Service support , Chest X-Ray 06/26/18 18:56 IMPRESSION: Bilateral infiltrates worrisome for pneumonia, predominating in the upper lobes. Electronically Signed: Steve Mars MD at 19:31 EST , Service support , Assessment/Plan Active and Suspected Problems Cardiac enzymes elevated (Acute) PAF (paroxysmal atrial fibrillation) (Acute) Pneumonia (Acute) Sepsis (Acute) Acute respiratory failure with hypoxia (Acute) RECOMMENDATIONS: 1. Continue Dilantin as ordered. 2. Await neurology consultation and EEG. 3. Transition from ceftriaxone and azithromycin to Zosyn. 4. Patient to remain n.p.o. for now. 5. Maintain seizure and aspiration precautions 6. Wean supplemental oxygen to maintain saturations at or above 90%. 7. Continue PPI and Lovenox for prophylaxis. IMPRESSIONS: 1. Acute hypoxic respiratory failure The patient presented to the emergency department hypoxic and appears to have required upwards of 15 L nonrebreather at one point early on in her hospitalization. Given her current clinical state and history leading up to her hospitalization along with chest x-ray findings, concern is for aspiration pneumonia. I would favor discontinuation of ceftriaxone and azithromycin. Instead, would favor use of Zosyn for now. Wean supplemental oxygen as tolerated. Maintain aspiration precautions. Continue n.p.o. status. 2. Encephalopathy Secondary to seizure activity and subsequent postictal state in the setting of noncompliance with AED's. Neurology has been consulted to see patient. Will defer medical management/AED preference to neuro. EEG is currently pending. Continue seizure precautions. 3. Paroxysmal atrial fibrillation/history of rheumatoid arthritis/hypertension/? Von Willebrand disease/chronic hepatitis C/depression/anxiety Complicates care, management, recovery and prognosis. Continue appropriate prophylaxis as ordered. This note was generated with [employer]aNUMBER dictation software. It may contain incorrect words, spelling, and punctuation that were not noted in checking the note before signing. Code Visit Inpatient E&M: 08607 Init Hosp L3
--- NOTE | 2018-06-27 06:53 | PN_ITS ---
Patient Problems: Active and Suspected Problems Cardiac enzymes elevated (Acute) PAF (paroxysmal atrial fibrillation) (Acute) Pneumonia (Acute) Sepsis (Acute) Acute respiratory failure with hypoxia (Acute) Subjective: Patient is a 67-year-old female admitted to the hospital last night with recent history of cough, fatigue and malaise over the preceding 48 hours with tonic- clonic seizures. She has a known history of epilepsy and is noncompliant with antiepileptic drugs. Past medical history is also positive for rheumatoid ar thritis, hypertension, von Willebrand's disease, chronic hepatitis C, anxiety/depression, narcolepsy and GERD. In the emergency room she was tachycardic and pulse ox on room air was 81%. She was given Ativan for a tonic- clonic seizure upon arrival. Pulse ox on a nonrebreather was 96%. CT of the brain showed minor periventricular white matter ischemic changes. Chest x-ray showed bilateral infiltrates more prominent in the upper lobes. EKG revealed atrial fibrillation with no prior history of A. fib. She was started on phenytoin, Rocephin and azithromycin in the emergency room and admitted to the intensive care unit. All events of the past 24 hours have been reviewed. Antibiotic Day #2 Rocephin and azithromycin TMAX: 101 ?F Vital signs: Heart rate and blood pressure are stable. She is currently 95% saturated on a 3 L nasal cannula with a respiratory rate of 16. All radiologic testing was reviewed: Chest x-ray has diffuse pulmonary infiltrates on the right and also in the left upper lobe suspicious for aspiration especially since she has been postictal secondary to tonic-clonic seizures due to noncompliance with medication. All labs were personally reviewed: WBC is 12.3 today down from 16.7 at admission. There is a left shift. Electrolytes are within normal limits and the BUN is 6 with a creatinine of 0.6. Troponins are mildly increased and troponin today is 0.046, they are not trending. TSH and free T4 normal. Lactic acid was 2 at admission. UA was unremarkable. Microbiology: Legionella and streptococcal antigens in the urine are negative. Blood cultures are pending. Respiratory panel is pending. Telemetry: Initially atrial fibrillation with rapid ventricular response and then converted to normal sinus rhythm today EKG: No ischemic changes Subjective: Has been on Keppra 750mg BID in the past for seizures and was controlled however she stopped this on her own a few months ago because she felt it was making her too lethargic. She is very somnolent but does open her eyes when I talk to her and will answer a few questions. Her voice is soft. Primarily her answers questions for her. Objective: General: very drowsy, able to follow a few simple commands, oriented X [ ] HEENT: PERRLA, EOMI, Atraumatic, normocephalic, no scleral icterus, no carotid bruits, no JVD, the neck is supple Lungs: CTA but diminished due to poor inspiratory effort, symmetric chest expansion, no accessory muscle use Heart: RRR, no MM, no gallop, no rub, normal S1, normal S2 Abdomen: Soft, nontender, nondistended, bowel sounds present, no guarding with palpation, no masses, no hepatosplenomegaly Extremities: No edema, no clubbing, no cyanosis, peripheral pulses normal Neuro: Cranial nerves II through XII grossly intact, she is moving all extremities, withdraws to painful stimulus, Skin: Warm and dry, no wounds, no rashes, no jaundice Psych: can not evaluate, she is too somnolent - Physical Exam Vital Signs Temp Pulse Resp BP Pulse Ox 100.1 F H 76 16 109/61 95 06/27/18 06:00 06/27/18 06:00 06/27/18 06:40 06/27/18 06:00 06/27/18 06:40 Oxygen Flow Rate (L/min) 3 Oxygen Delivery Method Nasal Cannula Weight: 122 lb 9.232 oz Body Mass Index (BMI) 20.4 Finger Stick Blood Glucose 117 Intake and Output for Last 24 Hours 06/25/18 06/26/18 06/27/18 23:59 23:59 23:59 Intake Total 1022 / 1022 Output Total 1000 / 1000 200 / 200 Balance -1000 / -1000 822 / 822 Microbiology Past 72 Hours 06/26/18 23:30 Streptococcus pneumoniae Antigen (M - Final Urine Catheter - Catheter 06/26/18 23:30 Legionella Antigen - Final Urine Catheter - Catheter Laboratory Tests Past 24 Hrs 06/26/18 06/26/18 06/26/18 15:34 15:34 19:25 WBC RBC Hgb Hct MCV MCH MCHC RDW RDW Differential Plt Count MPV Immature Gran % (Auto) Neut % (Auto) Lymph % (Auto) Stearns % (Auto) Eos % (Auto) Baso % (Auto) Absolute Neuts (auto) Absolute Lymphs (auto) Total Counted Specimen Type ART Sample Site L Radial pH 7.28 L Bicarbonate Actual 19.9 L POC Total CO2 21 Base Excess -7 L O2 Saturation 95 ABG pCO2 42.6 ABG pO2 83 Montez Test POS O2 Delivery Device NRB Mask Liter Flow 15.0 Blood Gas Notified Whom ED Blood Gas Notified Time 1914 Sodium Potassium Chloride Carbon Dioxide Anion Gap BUN Creatinine Estim Creat Clear Calc Est GFR (MDRD) Af Amer Est GFR (MDRD) Non-Af BUN/Creatinine Ratio Glucose Lactic Acid Calcium Phosphorus Magnesium Troponin I TSH Free T4 Urine Color Yellow Urine Clarity Clear Urine pH 6.0 Ur Specific [place] 1.020 Urine Protein 30 H Urine Glucose (UA) Normal Urine Ketones 15 H Urine Occult Blood Negative Urine Nitrite Negative Urine Bilirubin Negative Urine Urobilinogen Normal Ur Leukocyte Esterase Negative Urine RBC 0 SEEN Urine WBC 0 SEEN Ur Squamous Epith Cells 0 SEEN Urine Bacteria 0 SEEN Urine Mucus 0 SEEN Urine Opiates Screen NEGATIVE Urine Methadone Screen NEGATIVE Ur Barbiturates Screen NEGATIVE Ur Phencyclidine Scrn NEGATIVE Ur Amphetamines Screen NEGATIVE U Methamphetamin-MDMA NEGATIVE U Benzodiazepines Scrn NEGATIVE Urine Cocaine Screen NEGATIVE U Cannabinoids Screen NEGATIVE Ur Drug Screen Comment Ethyl Alcohol MRSA (PCR) 06/26/18 06/26/18 06/26/18 20:02 20:02 20:02 WBC 16.7 H RBC 4.42 Hgb 11.7 L Hct 36.6 L MCV 82.8 MCH 26.5 L MCHC 32.0 RDW 15.2 H RDW Differential 46.0 H Plt Count 268 MPV 11.4 Immature Gran % (Auto) 0.100 Neut % (Auto) 88.2 H Lymph % (Auto) 5.3 L Ste[place]s % (Auto) 6.2 Eos % (Auto) 0.1 Baso % (Auto) 0.1 Absolute Neuts (auto) 14.7 H Absolute Lymphs (auto) 0.88 Total Counted Not Reportable Specimen Type Sample Site pH Bicarbonate Actual POC Total CO2 Base Excess O2 Saturation ABG pCO2 ABG pO2 Montez Test O2 Delivery Device Liter Flow Blood Gas Notified Whom Blood Gas Notified Time Sodium 135 L Potassium 3.6 Chloride 102 Carbon Dioxide 24.0 Anion Gap 9 BUN 6 L Creatinine 0.76 Estim Creat Clear Calc 56.78 Est GFR (MDRD) Af Amer 98 Est GFR (MDRD) Non-Af 81 BUN/Creatinine Ratio 7.9 L Glucose 106 Lactic Acid Calcium 8.3 L Phosphorus Magnesium 1.8 Troponin I 0.049 H TSH Free T4 Urine Color Urine Clarity Urine pH Ur Specific [place] Urine Protein Urine Glucose (UA) Urine Ketones Urine Occult Blood Urine Nitrite Urine Bilirubin Urine Urobilinogen Ur Leukocyte Esterase Urine RBC Urine WBC Ur Squamous Epith Cells Urine Bacteria Urine Mucus Urine Opiates Screen Urine Methadone Screen Ur Barbiturates Screen Ur Phencyclidine Scrn Ur Amphetamines Screen U Methamphetamin-MDMA U Benzodiazepines Scrn Urine Cocaine Screen U Cannabinoids Screen Ur Drug Screen Comment Ethyl Alcohol < 3.0 MRSA (PCR) 06/26/18 06/26/18 06/26/18 20:02 20:02 21:31 WBC RBC Hgb Hct MCV MCH MCHC RDW RDW Differential Plt Count MPV Immature Gran % (Auto) Neut % (Auto) Lymph % (Auto) Stearns % (Auto) Eos % (Auto) Baso % (Auto) Absolute Neuts (auto) Absolute Lymphs (auto) Total Counted Specimen Type Sample Site pH Bicarbonate Actual POC Total CO2 Base Excess O2 Saturation ABG pCO2 ABG pO2 Montez Test O2 Delivery Device Liter Flow Blood Gas Notified Whom Blood Gas Notified Time Sodium Potassium Chloride Carbon Dioxide Anion Gap BUN Creatinine Estim Creat Clear Calc Est GFR (MDRD) Af Amer Est GFR (MDRD) Non-Af BUN/Creatinine Ratio Glucose Lactic Acid 2.0 Calcium Phosphorus 2.6 Magnesium 1.8 Troponin I TSH 1.56 Free T4 0.83 Urine Color Urine Clarity Urine pH Ur Specific [place] Urine Protein Urine Glucose (UA) Urine Ketones Urine Occult Blood Urine Nitrite Urine Bilirubin Urine Urobilinogen Ur Leukocyte Esterase Urine RBC Urine WBC Ur Squamous Epith Cells Urine Bacteria Urine Mucus Urine Opiates Screen Urine Methadone Screen Ur Barbiturates Screen Ur Phencyclidine Scrn Ur Amphetamines Screen U Methamphetamin-MDMA U Benzodiazepines Scrn Urine Cocaine Screen U Cannabinoids Screen Ur Drug Screen Comment Ethyl Alcohol MRSA (PCR) 06/26/18 06/26/18 06/27/18 23:30 23:30 02:20 WBC RBC Hgb Hct MCV MCH MCHC RDW RDW Differential Plt Count MPV Immature Gran % (Auto) Neut % (Auto) Lymph % (Auto) [place] % (Auto) Eos % (Auto) Baso % (Auto) Absolute Neuts (auto) Absolute Lymphs (auto) Total Counted Specimen Type Sample Site pH Bicarbonate Actual POC Total CO2 Base Excess O2 Saturation ABG pCO2 ABG pO2 Montez Test O2 Delivery Device Liter Flow Blood Gas Notified Whom Blood Gas Notified Time Sodium Potassium Chloride Carbon Dioxide Anion Gap BUN Creatinine Estim Creat Clear Calc Est GFR (MDRD) Af Amer Est GFR (MDRD) Non-Af BUN/Creatinine Ratio Glucose Lactic Acid Calcium Phosphorus Magnesium Troponin I 0.051 H 0.046 H TSH Free T4 Urine Color Urine Clarity Urine pH Ur Specific [place] Urine Protein Urine Glucose (UA) Urine Ketones Urine Occult Blood Urine Nitrite Urine Bilirubin Urine Urobilinogen Ur Leukocyte Esterase Urine RBC Urine WBC Ur Squamous Epith Cells Urine Bacteria Urine Mucus Urine Opiates Screen Urine Methadone Screen Ur Barbiturates Screen Ur Phencyclidine Scrn Ur Amphetamines Screen U Methamphetamin-MDMA U Benzodiazepines Scrn Urine Cocaine Screen U Cannabinoids Screen Ur Drug Screen Comment Ethyl Alcohol MRSA (PCR) Negative 06/27/18 06/27/18 06/27/18 04:30 04:30 04:30 WBC 12.3 H RBC 3.96 L Hgb 10.5 L Hct 32.9 L MCV 83.1 MCH 26.5 L MCHC 31.9 L RDW 15.3 H RDW Differential 46.5 H Plt Count 241 MPV 11.7 Immature Gran % (Auto) 0.200 Neut % (Auto) 88.7 H Lymph % (Auto) 8.3 L [place] % (Auto) 2.6 Eos % (Auto) 0.1 Baso % (Auto) 0.1 Absolute Neuts (auto) 10.9 H Absolute Lymphs (auto) 1.02 Total Counted Not Reportable Specimen Type Sample Site pH Bicarbonate Actual POC Total CO2 Base Excess O2 Saturation ABG pCO2 ABG pO2 Montez Test O2 Delivery Device Liter Flow Blood Gas Notified Whom Blood Gas Notified Time Sodium 136 Potassium 3.5 Chloride 102 Carbon Dioxide 25.0 Anion Gap 9 BUN 6 L Creatinine 0.60 Estim Creat Clear Calc 48.57 Est GFR (MDRD) Af Amer 128 Est GFR (MDRD) Non-Af 106 BUN/Creatinine Ratio 10.0 Glucose 100 Lactic Acid Calcium 7.7 L Phosphorus 2.9 Magnesium 1.9 Troponin I TSH Free T4 Urine Color Urine Clarity Urine pH Ur Specific [place] Urine Protein Urine Glucose (UA) Urine Ketones Urine Occult Blood Urine Nitrite Urine Bilirubin Urine Urobilinogen Ur Leukocyte Esterase Urine RBC Urine WBC Ur Squamous Epith Cells Urine Bacteria Urine Mucus Urine Opiates Screen Urine Methadone Screen Ur Barbiturates Screen Ur Phencyclidine Scrn Ur Amphetamines Screen U Methamphetamin-MDMA U Benzodiazepines Scrn Urine Cocaine Screen U Cannabinoids Screen Ur Drug Screen Comment Ethyl Alcohol MRSA (PCR) Medical Necessity - Tobacco Use Smoking Status: Former smoker Assessment/Plan All Active Problems Seizure (Acute) Cardiac enzymes elevated (Acute) PAF (paroxysmal atrial fibrillation) (Acute) Pneumonia (Acute) Sepsis (Acute) Acute respiratory failure with hypoxia (Acute) Influenza A (Acute) Mental status change (Acute) Impressions 1. Breakthrough seizure in a patient with a known seizure disorder and noncompliance with her antiepileptic drugs. This was discussed with Dr. Wilson and she will be started on Vimpat. 2. Aspiration pneumonia 3. Paroxysmal atrial fibrillation 4. Hepatitis C 5. Rheumatoid arthritis-not on medication to treat rheumatoid arthritis per the history and physical...she follows with Dr. Deleon 6. Reported history of narcolepsy 7. Anxiety/depression 8. Gastroesophageal reflux disease 9. Reported von Willebrand disease 10. Elevated [id number], etiology? Continue the Zosyn Vimpat was started by Dr. Wilson Continue n.p.o. status until she is alert and able to cooperate with examination and feeding MRI of the brain ordered by Dr. Wilson EEG showed no seizure activity but did show slowing consistent with probable metabolic encephalopathy secondary to pneumonia and postictal state Code Visit Inpatient E&M: 13678 Subs Hosp L3
--- NOTE | 2018-06-27 08:59 | NURSING ---
unsure whether pt has had flu vaccine; Dr. Patel is PCP and suggested we just call office to check
--- NOTE | 2018-06-27 10:11 | CM.UR ---
Met face to face with patient's . Introduced myself and my role. CM will continue to follow along during hospitalization to determine discharge disposition. states she has never been in SNF nor had home care. States she tries to keep busy. States she helped with Thanksgiving dinner, she runs the vacuum and goes shopping. States when they go shopping she will walk as much as she can and then she will go to scooter. States she has a motorized scooter but is afraid to take it on uneven ground. States he has thought about getting her a gold cart or something with 4 years so she can ride it around the yard. States when she does go out for a day she needs the next day to rest. Denies any needs at this time. is anticipating her recovering enough to return home as before. Instructed that we will continue to follow/be available for discharge plans. Verb understanding. Johnnie Ambriz RN, CCM.
--- NOTE | 2018-06-27 11:27 | EEG ---
- Electroencephalogram Date of service 06/27/2018 History EEG is being done in this 67 yr F to rule out seizures EEG Description: This is an 18 channel EEG with 10-20 lead placement system. Bipolar montages, Referential and Circumferential montages were reviewed. Photic stimulation was performed but hyperventilation not performed. The posterior dominant rhythm was absent. Photo stimulation did not elicit any driving response or abnormal photoparoxysmal response, Hyperventilation was not performed due to patient's current clinical condition and inability to co-operate. Drowsiness was identified. There is an abnormal background slowing noted in the 3-4 Hz range along with intermittent faster frequency beta waves noted during the entire record. There was no epileptiform discharges or electrographic seizures noted during this recording. EEG Interpretation This is an abnormal EEG due to moderate to severe background slowing which might be seen with generalized cerebral dysfunction like metabolic/toxic encephalopathy. While intermittent faster frequency wave forms may also be secondary to medication effect. Clinical correlation is advised. There is no epileptiform discharges or electrographic seizures noted during the record.
--- NOTE | 2018-06-27 11:34 | EEG_ITS ---
- Electroencephalogram Date of service 06/27/2018 History EEG is being done in this 67 yr F to rule out seizures EEG Description: This is an 18 channel EEG with 10-20 lead placement system. Bipolar montages, Referential and Circumferential montages were reviewed. Photic stimulation was performed but hyperventilation not performed. The posterior dominant rhythm was absent. Photo stimulation did not elicit any driving response or abnormal photoparoxysmal response, Hyperventilation was not performed due to patient's current clinical condition and inability to co- operate. Drowsiness was identified. There is an abnormal background slowing noted in the 3-4 Hz range along with intermittent faster frequency beta waves noted during the entire record. There was no epileptiform discharges or electrographic seizures noted during this recording. EEG Interpretation This is an abnormal EEG due to moderate to severe background slowing which might be seen with generalized cerebral dysfunction like metabolic/toxic encephalopathy. While intermittent faster frequency wave forms may also be secondary to medication effect. Clinical correlation is advised. There is no epileptiform discharges or electrographic seizures noted during the record.
--- NOTE | 2018-06-27 12:46 | PCM.CONS.GEN ---
Problem List (1) Seizure Status: Acute Reason for Consult Date of Consultation: 06/27/18 Reason for Consultation: Seizure History of Present Illness: The patient is a 67 year old CF with PMH HTN, HLD, H/O seizures, H/O PRES (when admitted in February 2018 with breakthrough seizures), narcolepsy, RA, anxiety/depression, Hepatitis C, Von Willebrand disease and osteoporosis admitted with break through seizures. patient is drowsy, history could not be obtained from patient, is obtained from patient's and medical records. per , patient initially had seizures in 2015, had been on Keppra and seizures were well controlled, later felt the Keppra is making her lethargic and patient stopped taking Keppra around March 2018 on her own. Then yesterday (06/26/18) per she was sluggish the whole day, later had episode where she had staring episode, eyes rolled back, head turned to one side, made grunting noise, started having GTCs, the episode lasted for few minutes, later was in post ictal state, also had tongue bite, had about 3 such events one after another and hence was brought to the ED where she had another witnessed seizures, was loaded with Dilantin and treated with Ativan. Per she uses a cane to ambulate, denies any frequent falls and does not drive. Patient continues to be drowsy but is arousable and denies any VALVERDE at present. CT head on admission was unremarkable, EEG did not show any epileptiform discharges. On admission she was found to have acute hypoxic respiratory failure, aspiration PNA and paroxysmal AFib which later reverted back to sinus rhythm per documentation. Past Medical History Past Medical History (Chronic Problems): Chronic Problems Anxiety and depression (Chronic) Narcolepsy (Chronic) Hep C (Chronic) Von Willebrand disease (Chronic) Gastroesophageal reflux disease (Chronic) Rheumatoid arthritis (Chronic) Allergies codeine Allergy (Verified 06/26/18 18:49) Hives morphine Allergy (Verified 06/26/18 18:49) Hives Opioids - Morphine Analogues Allergy (Verified 06/26/18 18:49) Hives amicar Adverse Reaction (Uncoded 06/26/18 18:49) Other sassafrass Adverse Reaction (Uncoded 06/26/18 18:49) Nausea/Vom/Diarrhea Home Medications: Ambulatory Orders Medication Instructions Recorded Lisinopril [Zestril] 10 mg PO DAILY 05/18/16 Omeprazole [Prilosec] 40 mg PO BID 05/18/16 Alendronate Sodium [Fosamax] 10 mg PO DAILY@0700 06/26/18 Potassium Chloride 20 meq PO BID 06/26/18 Surgical History: - - L Breast biopsy, D&C, Cholecystectomy, Appendectomy. 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 Paternal History Items: - - No marked paternal family history including HD, DM, CA. Review of Systems Constitutional: Reports: - - ROS could not be obtained as patient continues to be drowsy Patient Problems: Active and Suspected Problems Cardiac enzymes elevated (Acute) PAF (paroxysmal atrial fibrillation) (Acute) Pneumonia (Acute) Sepsis (Acute) Acute respiratory failure with hypoxia (Acute) - Physical Exam General: - - drowsy, arousable, follows VC intermittently HEENT: Normocephalic Neck: Supple Lungs: Diminished Cardiovascular: Normal S1, Normal S2 Abdomen: Bowel Sounds Present Extremities: No cyanosis Neurological: - - drowsy, pupils BERL, follows VC intermittently, limited Neurology examination, no FD, moves all 4 extremities, withdraws to painful stimuli, cerebellar/sensory/gait could not be assessed, Reflexes B/L B/S/T/K/A, no NR Vital Signs Temp Pulse Resp BP Pulse Ox 100.8 F H 75 23 H 131/60 H 96 06/27/18 12:00 06/27/18 12:00 06/27/18 12:00 06/27/18 12:00 06/27/18 12:00 Oxygen Flow Rate (L/min) 3 Oxygen Delivery Method Nasal Cannula Weight: 55.6 kg Body Mass Index (BMI) 20.4 Finger Stick Blood Glucose 117 Intake and Output for Last 24 Hours 06/25/18 06/26/18 06/27/18 23:59 23:59 23:59 Intake Total 1022 / 1022 Output Total 1000 / 1000 200 / 200 Balance -1000 / -1000 822 / 822 Microbiology Past 72 Hours 06/27/18 06:00 Respiratory Panel (PCR) - Final Mucosa - Nasopharyngeal Rhinovirus 11/23/18 23:30 Streptococcus pneumoniae Antigen (M - Final Urine Catheter - Catheter 06/26/18 23:30 Legionella Antigen - Final Urine Catheter - Catheter Laboratory Tests Past 24 Hrs 06/26/18 06/26/18 06/26/18 15:34 15:34 19:25 WBC RBC Hgb Hct MCV MCH MCHC RDW RDW Differential Plt Count MPV Immature Gran % (Auto) Neut % (Auto) Lymph % (Auto) Platte % (Auto) Eos % (Auto) Baso % (Auto) Absolute Neuts (auto) Absolute Lymphs (auto) Total Counted Specimen Type ART Sample Site L Radial pH 7.28 L Bicarbonate Actual 19.9 L POC Total CO2 21 Base Excess -7 L O2 Saturation 95 ABG pCO2 42.6 ABG pO2 83 Montez Test POS O2 Delivery Device NRB Mask Liter Flow 15.0 Blood Gas Notified Whom ED Blood Gas Notified Time 1914 Sodium Potassium Chloride Carbon Dioxide Anion Gap BUN Creatinine Estim Creat Clear Calc Est GFR (MDRD) Af Amer Est GFR (MDRD) Non-Af BUN/Creatinine Ratio Glucose Lactic Acid Calcium Phosphorus Magnesium Troponin I TSH Free T4 Urine Color Yellow Urine Clarity Clear Urine pH 6.0 Ur Specific Marydel 1.020 Urine Protein 30 H Urine Glucose (UA) Normal Urine Ketones 15 H Urine Occult Blood Negative Urine Nitrite Negative Urine Bilirubin Negative Urine Urobilinogen Normal Ur Leukocyte Esterase Negative Urine RBC 0 SEEN Urine WBC 0 SEEN Ur Squamous Epith Cells 0 SEEN Urine Bacteria 0 SEEN Urine Mucus 0 SEEN Urine Opiates Screen NEGATIVE Urine Methadone Screen NEGATIVE Ur Barbiturates Screen NEGATIVE Ur Phencyclidine Scrn NEGATIVE Ur Amphetamines Screen NEGATIVE U Methamphetamin-MDMA NEGATIVE U Benzodiazepines Scrn NEGATIVE Urine Cocaine Screen NEGATIVE U Cannabinoids Screen NEGATIVE Ur Drug Screen Comment Ethyl Alcohol MRSA (PCR) 06/26/18 06/26/18 06/26/18 20:02 20:02 20:02 WBC 16.7 H RBC 4.42 Hgb 11.7 L Hct 36.6 L MCV 82.8 MCH 26.5 L MCHC 32.0 RDW 15.2 H RDW Differential 46.0 H Plt Count 268 MPV 11.4 Immature Gran % (Auto) 0.100 Neut % (Auto) 88.2 H Lymph % (Auto) 5.3 L Platte % (Auto) 6.2 Eos % (Auto) 0.1 Baso % (Auto) 0.1 Absolute Neuts (auto) 14.7 H Absolute Lymphs (auto) 0.88 Total Counted Not Reportable Specimen Type Sample Site pH Bicarbonate Actual POC Total CO2 Base Excess O2 Saturation ABG pCO2 ABG pO2 Montez Test O2 Delivery Device Liter Flow Blood Gas Notified Whom Blood Gas Notified Time Sodium 135 L Potassium 3.6 Chloride 102 Carbon Dioxide 24.0 Anion Gap 9 BUN 6 L Creatinine 0.76 Estim Creat Clear Calc 56.78 Est GFR (MDRD) Af Amer 98 Est GFR (MDRD) Non-Af 81 BUN/Creatinine Ratio 7.9 L Glucose 106 Lactic Acid Calcium 8.3 L Phosphorus Magnesium 1.8 Troponin I 0.049 H TSH Free T4 Urine Color Urine Clarity Urine pH Ur Specific Marydel Urine Protein Urine Glucose (UA) Urine Ketones Urine Occult Blood Urine Nitrite Urine Bilirubin Urine Urobilinogen Ur Leukocyte Esterase Urine RBC Urine WBC Ur Squamous Epith Cells Urine Bacteria Urine Mucus Urine Opiates Screen Urine Methadone Screen Ur Barbiturates Screen Ur Phencyclidine Scrn Ur Amphetamines Screen U Methamphetamin-MDMA U Benzodiazepines Scrn Urine Cocaine Screen U Cannabinoids Screen Ur Drug Screen Comment Ethyl Alcohol < 3.0 MRSA (PCR) 06/26/18 06/26/18 06/26/18 20:02 20:02 21:31 WBC RBC Hgb Hct MCV MCH MCHC RDW RDW Differential Plt Count MPV Immature Gran % (Auto) Neut % (Auto) Lymph % (Auto) Platte % (Auto) Eos % (Auto) Baso % (Auto) Absolute Neuts (auto) Absolute Lymphs (auto) Total Counted Specimen Type Sample Site pH Bicarbonate Actual POC Total CO2 Base Excess O2 Saturation ABG pCO2 ABG pO2 Montez Test O2 Delivery Device Liter Flow Blood Gas Notified Whom Blood Gas Notified Time Sodium Potassium Chloride Carbon Dioxide Anion Gap BUN Creatinine Estim Creat Clear Calc Est GFR (MDRD) Af Amer Est GFR (MDRD) Non-Af BUN/Creatinine Ratio Glucose Lactic Acid 2.0 Calcium Phosphorus 2.6 Magnesium 1.8 Troponin I TSH 1.56 Free T4 0.83 Urine Color Urine Clarity Urine pH Ur Specific Marydel Urine Protein Urine Glucose (UA) Urine Ketones Urine Occult Blood Urine Nitrite Urine Bilirubin Urine Urobilinogen Ur Leukocyte Esterase Urine RBC Urine WBC Ur Squamous Epith Cells Urine Bacteria Urine Mucus Urine Opiates Screen Urine Methadone Screen Ur Barbiturates Screen Ur Phencyclidine Scrn Ur Amphetamines Screen U Methamphetamin-MDMA U Benzodiazepines Scrn Urine Cocaine Screen U Cannabinoids Screen Ur Drug Screen Comment Ethyl Alcohol MRSA (PCR) 06/26/18 06/26/18 06/27/18 23:30 23:30 02:20 WBC RBC Hgb Hct MCV MCH MCHC RDW RDW Differential Plt Count MPV Immature Gran % (Auto) Neut % (Auto) Lymph % (Auto) Platte % (Auto) Eos % (Auto) Baso % (Auto) Absolute Neuts (auto) Absolute Lymphs (auto) Total Counted Specimen Type Sample Site pH Bicarbonate Actual POC Total CO2 Base Excess O2 Saturation ABG pCO2 ABG pO2 Montez Test O2 Delivery Device Liter Flow Blood Gas Notified Whom Blood Gas Notified Time Sodium Potassium Chloride Carbon Dioxide Anion Gap BUN Creatinine Estim Creat Clear Calc Est GFR (MDRD) Af Amer Est GFR (MDRD) Non-Af BUN/Creatinine Ratio Glucose Lactic Acid Calcium Phosphorus Magnesium Troponin I 0.051 H 0.046 H TSH Free T4 Urine Color Urine Clarity Urine pH Ur Specific Marydel Urine Protein Urine Glucose (UA) Urine Ketones Urine Occult Blood Urine Nitrite Urine Bilirubin Urine Urobilinogen Ur Leukocyte Esterase Urine RBC Urine WBC Ur Squamous Epith Cells Urine Bacteria Urine Mucus Urine Opiates Screen Urine Methadone Screen Ur Barbiturates Screen Ur Phencyclidine Scrn Ur Amphetamines Screen U Methamphetamin-MDMA U Benzodiazepines Scrn Urine Cocaine Screen U Cannabinoids Screen Ur Drug Screen Comment Ethyl Alcohol MRSA (PCR) Negative 06/27/18 06/27/18 06/27/18 04:30 04:30 04:30 WBC 12.3 H RBC 3.96 L Hgb 10.5 L Hct 32.9 L MCV 83.1 MCH 26.5 L MCHC 31.9 L RDW 15.3 H RDW Differential 46.5 H Plt Count 241 MPV 11.7 Immature Gran % (Auto) 0.200 Neut % (Auto) 88.7 H Lymph % (Auto) 8.3 L Platte % (Auto) 2.6 Eos % (Auto) 0.1 Baso % (Auto) 0.1 Absolute Neuts (auto) 10.9 H Absolute Lymphs (auto) 1.02 Total Counted Not Reportable Specimen Type Sample Site pH Bicarbonate Actual POC Total CO2 Base Excess O2 Saturation ABG pCO2 ABG pO2 Montez Test O2 Delivery Device Liter Flow Blood Gas Notified Whom Blood Gas Notified Time Sodium 136 Potassium 3.5 Chloride 102 Carbon Dioxide 25.0 Anion Gap 9 BUN 6 L Creatinine 0.60 Estim Creat Clear Calc 48.57 Est GFR (MDRD) Af Amer 128 Est GFR (MDRD) Non-Af 106 BUN/Creatinine Ratio 10.0 Glucose 100 Lactic Acid Calcium 7.7 L Phosphorus 2.9 Magnesium 1.9 Troponin I TSH Free T4 Urine Color Urine Clarity Urine pH Ur Specific Marydel Urine Protein Urine Glucose (UA) Urine Ketones Urine Occult Blood Urine Nitrite Urine Bilirubin Urine Urobilinogen Ur Leukocyte Esterase Urine RBC Urine WBC Ur Squamous Epith Cells Urine Bacteria Urine Mucus Urine Opiates Screen Urine Methadone Screen Ur Barbiturates Screen Ur Phencyclidine Scrn Ur Amphetamines Screen U Methamphetamin-MDMA U Benzodiazepines Scrn Urine Cocaine Screen U Cannabinoids Screen Ur Drug Screen Comment Ethyl Alcohol MRSA (PCR) Assessment/Plan All Active Problems Seizure (Acute) Cardiac enzymes elevated (Acute) PAF (paroxysmal atrial fibrillation) (Acute) Pneumonia (Acute) Sepsis (Acute) Acute respiratory failure with hypoxia (Acute) Influenza A (Acute) Mental status change (Acute) The patient is a 67 year old CF with PMH HTN, HLD, H/O seizures, H/O PRES (when admitted in February 2018 with breakthrough seizures), narcolepsy, RA, anxiety/depression, Hepatitis C, Von Willebrand disease and osteoporosis admitted with break through seizures. patient is drowsy, history could not be obtained from patient, is obtained from patient's and medical records. per , patient initially had seizures in 2015, had been on Keppra and seizures were well controlled, later felt the Keppra is making her lethargic and patient stopped taking Keppra around March 2018 on her own. Then yesterday (06/26/18) per she was sluggish the whole day, later had episode where she had staring episode, eyes rolled back, head turned to one side, made grunting noise, started having GTCs, the episode lasted for few minutes, later was in post ictal state, also had tongue bite, had about 3 such events one after another and hence was brought to the ED where she had another witnessed seizures, was loaded with Dilantin and treated with Ativan. Per she uses a cane to ambulate, denies any frequent falls and does not drive. Patient continues to be drowsy but is arousable and denies any VALVERDE at present. CT head on admission was unremarkable, EEG did not show any epileptiform discharges. On admission she was found to have acute hypoxic respiratory failure, aspiration PNA and paroxysmal AFib which later reverted back to sinus rhythm per documentation Impression Break through seizure- medication non compliance Metabolic encephalopathy Plan -Vimpat 50 mg PO BID for 5 days then increase to 100 mg PO BID. -Stop Dilantin, patient has history of hepatitis C and osteoporosis -Check MRI brain w/o contrast -EEG- no epileptiform seizures -Labs reviewed -Compliance with medication discussed with the patient. -Seizure precautions -patient does not drive -Further management of Afib per primary team/ICU and Cardiology -Further medical management per primary team/ICU team -Fall precautions -Follow up with Neurology in 6 weeks as outpatient. -Please call with questions if any -Thank you for allowing us to participate in patient's care and management Code Visit Inpatient E&M: 46973 Init Hosp L3
--- NOTE | 2018-06-27 13:25 | MRI_ITS ---
STUDY: MRI BRAIN WITHOUT CONTRAST REASON FOR EXAM: Female, 67 years old. Seizures TECHNIQUE: Standardized multiplanar fat and water weighted pulse sequences were obtained. COMPARISON: February 17, 2018 FINDINGS: Normal size ventricles and cortical sulci for stated age Mild periventricular white matter ischemic changes.. Normal bilateral basal ganglia. Normal thalami. There is no extra-axial fluid accumulation. Normal flow voids within the major intracranial circulation suggesting patency by spin echo criteria. Normal sella turcica, pituitary gland, infundibular stalk, optic chiasm and hypothalamus. Normal tectal plate and pineal gland. Normal midbrain, shar and medulla. Normal cerebellum. Normal basal cisterns. Normal bilateral temporal bones. Normal bilateral internal auditory canals. No demonstrated orbital abnormality, within the constraints of a routine brain study. Normal visualized paranasal sinuses. Normal calvarium and skull base. Normal visualized soft tissue structures. Normal visualized upper cervical spine. Findings are similar to that seen previously although the disease in the parieto-occipital regions is less prominent on current study. No other significant changes MRI/Brain without Contrast IMPRESSION: Mild periventricular white matter ischemic changes without evidence for acute infarct. No evidence for acute infarct Slight interval improvement since previous study Electronically Signed: Akbar Jo MD at 16:05 EST , Service support ,
[2018-06-27] MEDS: Acetaminophen 650 MG Suppository RECTAL (14:43)
[2018-06-28] VITALS (25 sets, daily range): BP systolic 127–151; BP diastolic 64–74; PULSE 77–111; RESP 15–30; TEMP 36.3–37.9; O2SAT 90–100
[2018-06-28] MEDS: 0.9% Normal Saline 1,000 ML 125 ML IV (05:15)
[2018-06-28] MEDS: Piperacil/Tazobactam 3.375 GM/50 ML ML IV ×3 (05:15→21:02)
--- NOTE | 2018-06-28 06:57 | PCM.PROGNOTE ---
Patient Problems: Active and Suspected Problems Cardiac enzymes elevated (Acute) PAF (paroxysmal atrial fibrillation) (Acute) Pneumonia (Acute) Sepsis (Acute) Acute respiratory failure with hypoxia (Acute) Subjective: Pt is a 67 YO female with seizure disorder who is non-compliant with AED's who was brought to the ER with multiple breakthrough seizures. She aspirated and is being treated with Zosyn for Aspiration PNA. Seen by Dr. Wilson and started on Vimpat. EEG without seizure activity but, with background slowing. No seizures since admission to the ICU. All events of the past 24 hours have been reviewed. Zosyn day #2 TMAX: 101.3 VSS 90-95% on a 1 L NC LAB: pending Radiology: ECHO: EF 55% with stage I diastolic dysfunction Microbiology: respiratory panel is + for rhinovirus. Legionella and streptococcal antigens were negative. no sputum was obtained Telemetry:NSR, no significant ventricular ectopy She is alert and appropriate today. Used to follow with Dr. Deleon and was on Plaquenil but she no longer sees Dr. Deleon. She does have pain in her hands and feet but takes only Tylenol. No hx of PUD but is on Prilosec. She has suffered from depression in the past. + cough, denies SOB, no N/V. she is c/o diffuse muscle soreness.....due to multiple seizures Objective: General: Alert, cooperative, able to follow commands, oriented X 3 HEENT: PERRLA, EOMI, Atraumatic, normocephalic, no scleral icterus, no carotid bruits, no JVD Lungs: she has rales throughout the R lung and also in the left base, no wheezes or rhonchi, symmetric chest expansion, no conversational dyspnea, no accessory muscle use Heart: RRR, no MM, no gallop, no rub, normal S1, normal S2, Abdomen: Soft, nontender, nondistended, bowel sounds present, no guarding with palpation, no masses, no hepatosplenomegaly Extremities: No edema, no clubbing, no cyanosis, peripheral pulses normal Neuro: Cranial nerves II through XII grossly intact, Neuro grossly intact, no focal neurologic deficits Skin: Warm and dry, no wounds, no rashes, no jaundice Psych: Normal affect, Appropriate She has swelling in the hands at the PIP joints and MCP's...no redness and no increased warmth to touch Telemetry: Normal sinus rhythm with occasional PVC - Physical Exam Vital Signs Temp Pulse Resp BP Pulse Ox 97.7 F L 88 16 127/70 H 90 06/28/18 06:47 06/28/18 06:47 06/28/18 06:47 06/28/18 06:47 06/28/18 06:47 Oxygen Flow Rate (L/min) 12 Oxygen Delivery Method Nasal Cannula Weight: 123 lb 0.287 oz Body Mass Index (BMI) 20.4 Finger Stick Blood Glucose 117 Intake and Output for Last 24 Hours 06/26/18 06/27/18 06/28/18 23:59 23:59 23:59 Intake Total 2916 / 2916 1737 / 1737 Output Total 1000 / 1000 1575 / 1575 3200 / 3200 Balance -1000 / -1000 1341 / 1341 -1463 / -1463 Microbiology Past 72 Hours 06/27/18 06:00 Respiratory Panel (PCR) - Final Mucosa - Nasopharyngeal Rhinovirus 06/26/18 23:30 Streptococcus pneumoniae Antigen (M - Final Urine Catheter - Catheter 06/26/18 23:30 Legionella Antigen - Final Urine Catheter - Catheter Laboratory Tests Past 24 Hrs 06/28/18 06/28/18 06/28/18 06:43 06:43 06:43 WBC Pending RBC Pending Hgb Pending Hct Pending MCV Pending MCH Pending MCHC Pending RDW Pending RDW Differential Pending Plt Count Pending Neut % (Auto) Pending Absolute Neuts (auto) Pending Total Counted Pending Sodium Pending Potassium Pending Chloride Pending Carbon Dioxide Pending Anion Gap Pending BUN Pending Creatinine Pending Est GFR (MDRD) Af Amer Pending Est GFR (MDRD) Non-Af Pending BUN/Creatinine Ratio Pending Glucose Pending Calcium Pending Phosphorus Pending Magnesium Pending Medical Necessity - Tobacco Use Smoking Status: Former smoker Assessment/Plan All Active Problems Seizure (Acute) Cardiac enzymes elevated (Acute) PAF (paroxysmal atrial fibrillation) (Acute) Pneumonia (Acute) Sepsis (Acute) Acute respiratory failure with hypoxia (Acute) Influenza A (Acute) Mental status change (Acute) Impressions 1. Breakthrough seizure in a patient with a known seizure disorder and noncompliance with her antiepileptic drugs. This was discussed with Dr. Wilson and she will be started on Vimpat. 2. Aspiration pneumonia 3. Paroxysmal atrial fibrillation 4. Hepatitis C 5. Rheumatoid arthritis-not on medication to treat rheumatoid arthritis per the history and physical...she follows with Dr. Deleon 6. Reported history of narcolepsy 7. Anxiety/depression 8. Gastroesophageal reflux disease 9. Reported von Willebrand disease 10. Elevated [id number], etiology? 11. Hypokalemia Continue the Zosyn Change Vimpat to 50 mg p.o. twice daily Start regular diet today. MRI of the brain ordered by Dr. Wilson will likely be done Friday EEG showed no seizure activity but did show slowing consistent with probable metabolic encephalopathy secondary to pneumonia and postictal state Transfer to PCU Supplement potassium Recheck BMP in the a.m. DC the IV Protonix and start Pepcid Code Visit Inpatient E&M: 26541 Subs Hosp L3
[2018-06-28 07:02] LABS: Absolute Lymphocyte Count 1.25 X10^3/ul (0.83-4.51); Absolute Neutrophil Count 8.7 X10^3/uL (2.0-7.7); Basophil# 0.02 X10^3/uL; Basophil% 0.2 % (0-1); Eosinophil# 0.08 X10^3/uL; Eosinophils% 0.7 % (0-5); Hematocrit 31.7 % (37-47); Hemoglobin 10.5 g/dl (12.0-15.0); Lymphocyte # 1.25 X10^3/ul (4.0); Lymphocyte % 11.4 % (19-41); Mean Corp Hgb Conc 33.1 g/gl (32-36); Mean Corpuscular Hgb 27.3 pg (27.0-32.0); Mean Corpuscular Volume 82.3 fL (81-99); Mean Platelet Vol. 11.7 fl (6.2-12.0); Monocyte# 0.94 X10^3/uL; Monocyte% 8.6 % (0-10); Neutrophil # 8.66 X10^3/uL (2.7-7.7); Neutrophil % 78.9 % (47-70); Platelet Count 213 K/mm3 (150-450); RBC Distribution Width SD 45.2 fl (35.1-43.9); Red Blood Count 3.85 M/mm3 (4.2-5.4)
[2018-06-28 07:03] LABS: POSITIVE COUNT NO; POSITIVE DIFFERENTIAL NO; POSITIVE MORPHOLOGY NO
[2018-06-28 07:08] LABS: Anion Gap 11 (5-15); BUN 5 mg/dL (7-18); BUN/Creat Ratio 8.6 RATIO (10-20); Calcium,Total 8.2 mg/dL (8.5-10.1); Chloride 106 mmol/L (98-107); Creatinine, Serum 0.58 mg/dL (0.55-1.02); EST Glomerular Filtration Rate 110 mL/min (>60); Est Glom Filt Rate - Afr Amer 133 mL/min (>60); Estimated Creatinine Clearance 48.75 ml/min; Glucose 76 mg/dL (74-106); Magnesium 1.9 mg/dL (1.6-2.6); Sodium Level 142 mmol/L (136-145)
[2018-06-28 07:17] LABS: Phosphorus 1.6 mg/dL (2.5-4.9)
--- NOTE | 2018-06-28 07:53 | PCM.PN.INT ---
Subjective: Patient did well overnight. No acute issues were reported. Patient has not had any seizures and is currently in normal sinus rhythm. Patient is much more interactive and reporting some generalized body aches, low back pain and some pain in the legs. Patient has been febrile overnight, but remains on respiratory isolation secondary to rhinovirus. Patient is asking to be initiated on p.o. diet. General: Alert, Oriented x3, Cooperative, No apparent distress, Well developed, Well nourished, - - Speaking in full sentences. HEENT: Atraumatic, PERRLA, EOMI, Normocephalic, - - No scleral icterus or injection noted. Oral: Moist Mucosa, No Gingival or Mucosal Lesions/ Ulcerations, - - No tongue trauma appreciated. Neck: Supple, No JVD, No Nodes, Trachea Midline Lungs: Clear to auscultation, Normal air movement, No rhonchi, No wheeze, No rales, - - Symmetric expansion. No dullness to percussion. Cardiovascular: Regular rate, Regular Rhythm, Normal S1, Normal S2, No murmurs, No rub noted, No Gallop Abdomen: Bowel Sounds Present, Soft, Non Tender, Non-Distended Extremities: No clubbing, No cyanosis, No edema Skin: No rashes, No breakdown Musculoskeletal: No Tenderness to Palpation of Joints or Extremities Lymphatic: No Cervical, Supraclavicular, or Inguinal Adenopathy Neurological: Cranial nerves II-XII grossly intact, Neuro grossly intact, Motor Exam 5/5 strength throughout Psych/Mental Status: Alert and oriented to time, place, person, mood and affect Vital Signs Temp Pulse Resp BP Pulse Ox 36.5 C L 96 16 127/70 H 90 06/28/18 06:47 06/28/18 07:28 06/28/18 06:47 06/28/18 06:47 06/28/18 06:47 Oxygen Flow Rate (L/min) 12 Oxygen Delivery Method Nasal Cannula Weight: 55.8 kg Body Mass Index (BMI) 20.4 Finger Stick Blood Glucose 117 Intake and Output for Last 24 Hours 06/26/18 06/27/18 06/28/18 23:59 23:59 23:59 Intake Total 2916 / 2916 1737 / 1737 Output Total 1000 / 1000 1575 / 1575 3200 / 3200 Balance -1000 / -1000 1341 / 1341 -1463 / -1463 Labs (Last 48 Hours) 06/26/18 06/26/18 06/26/18 15:34 15:34 19:25 WBC RBC Hgb Hct MCV MCH MCHC RDW RDW Differential Plt Count MPV Immature Gran % (Auto) Neut % (Auto) Lymph % (Auto) [place] % (Auto) Eos % (Auto) Baso % (Auto) Absolute Neuts (auto) Absolute Lymphs (auto) Total Counted Specimen Type ART Sample Site L Radial pH 7.28 L Bicarbonate Actual 19.9 L POC Total CO2 21 Base Excess -7 L O2 Saturation 95 ABG pCO2 42.6 ABG pO2 83 [place] Test POS O2 Delivery Device NRB Mask Liter Flow 15.0 Blood Gas Notified Whom ED Blood Gas Notified Time 1914 Sodium Potassium Chloride Carbon Dioxide Anion Gap BUN Creatinine Estim Creat Clear Calc Est GFR (MDRD) Af Amer Est GFR (MDRD) Non-Af BUN/Creatinine Ratio Glucose Lactic Acid Calcium Phosphorus Magnesium Troponin I TSH Free T4 Urine Color Yellow Urine Clarity Clear Urine pH 6.0 Ur Specific [place] 1.020 Urine Protein 30 H Urine Glucose (UA) Normal Urine Ketones 15 H Urine Occult Blood Negative Urine Nitrite Negative Urine Bilirubin Negative Urine Urobilinogen Normal Ur Leukocyte Esterase Negative Urine RBC 0 SEEN Urine WBC 0 SEEN Ur Squamous Epith Cells 0 SEEN Urine Bacteria 0 SEEN Urine Mucus 0 SEEN Urine Opiates Screen NEGATIVE Urine Methadone Screen NEGATIVE Ur Barbiturates Screen NEGATIVE Ur Phencyclidine Scrn NEGATIVE Ur Amphetamines Screen NEGATIVE U Methamphetamin-MDMA NEGATIVE U Benzodiazepines Scrn NEGATIVE Urine Cocaine Screen NEGATIVE U Cannabinoids Screen NEGATIVE Ur Drug Screen Comment Ethyl Alcohol MRSA (PCR) 06/26/18 06/26/18 06/26/18 20:02 20:02 20:02 WBC 16.7 H RBC 4.42 Hgb 11.7 L Hct 36.6 L MCV 82.8 MCH 26.5 L MCHC 32.0 RDW 15.2 H RDW Differential 46.0 H Plt Count 268 MPV 11.4 Immature Gran % (Auto) 0.100 Neut % (Auto) 88.2 H Lymph % (Auto) 5.3 L [place] % (Auto) 6.2 Eos % (Auto) 0.1 Baso % (Auto) 0.1 Absolute Neuts (auto) 14.7 H Absolute Lymphs (auto) 0.88 Total Counted Not Reportable Specimen Type Sample Site pH Bicarbonate Actual POC Total CO2 Base Excess O2 Saturation ABG pCO2 ABG pO2 [place] Test O2 Delivery Device Liter Flow Blood Gas Notified Whom Blood Gas Notified Time Sodium 135 L Potassium 3.6 Chloride 102 Carbon Dioxide 24.0 Anion Gap 9 BUN 6 L Creatinine 0.76 Estim Creat Clear Calc 56.78 Est GFR (MDRD) Af Amer 98 Est GFR (MDRD) Non-Af 81 BUN/Creatinine Ratio 7.9 L Glucose 106 Lactic Acid Calcium 8.3 L Phosphorus Magnesium 1.8 Troponin I 0.049 H TSH Free T4 Urine Color Urine Clarity Urine pH Ur Specific [place] Urine Protein Urine Glucose (UA) Urine Ketones Urine Occult Blood Urine Nitrite Urine Bilirubin Urine Urobilinogen Ur Leukocyte Esterase Urine RBC Urine WBC Ur Squamous Epith Cells Urine Bacteria Urine Mucus Urine Opiates Screen Urine Methadone Screen Ur Barbiturates Screen Ur Phencyclidine Scrn Ur Amphetamines Screen U Methamphetamin-MDMA U Benzodiazepines Scrn Urine Cocaine Screen U Cannabinoids Screen Ur Drug Screen Comment Ethyl Alcohol < 3.0 MRSA (PCR) 06/26/18 06/26/18 06/26/18 20:02 20:02 21:31 WBC RBC Hgb Hct MCV MCH MCHC RDW RDW Differential Plt Count MPV Immature Gran % (Auto) Neut % (Auto) Lymph % (Auto) [place] % (Auto) Eos % (Auto) Baso % (Auto) Absolute Neuts (auto) Absolute Lymphs (auto) Total Counted Specimen Type Sample Site pH Bicarbonate Actual POC Total CO2 Base Excess O2 Saturation ABG pCO2 ABG pO2 [place] Test O2 Delivery Device Liter Flow Blood Gas Notified Whom Blood Gas Notified Time Sodium Potassium Chloride Carbon Dioxide Anion Gap BUN Creatinine Estim Creat Clear Calc Est GFR (MDRD) Af Amer Est GFR (MDRD) Non-Af BUN/Creatinine Ratio Glucose Lactic Acid 2.0 Calcium Phosphorus 2.6 Magnesium 1.8 Troponin I TSH 1.56 Free T4 0.83 Urine Color Urine Clarity Urine pH Ur Specific [place] Urine Protein Urine Glucose (UA) Urine Ketones Urine Occult Blood Urine Nitrite Urine Bilirubin Urine Urobilinogen Ur Leukocyte Esterase Urine RBC Urine WBC Ur Squamous Epith Cells Urine Bacteria Urine Mucus Urine Opiates Screen Urine Methadone Screen Ur Barbiturates Screen Ur Phencyclidine Scrn Ur Amphetamines Screen U Methamphetamin-MDMA U Benzodiazepines Scrn Urine Cocaine Screen U Cannabinoids Screen Ur Drug Screen Comment Ethyl Alcohol MRSA (PCR) 06/26/18 06/26/18 06/27/18 23:30 23:30 02:20 WBC RBC Hgb Hct MCV MCH MCHC RDW RDW Differential Plt Count MPV Immature Gran % (Auto) Neut % (Auto) Lymph % (Auto) [place] % (Auto) Eos % (Auto) Baso % (Auto) Absolute Neuts (auto) Absolute Lymphs (auto) Total Counted Specimen Type Sample Site pH Bicarbonate Actual POC Total CO2 Base Excess O2 Saturation ABG pCO2 ABG pO2 [place] Test O2 Delivery Device Liter Flow Blood Gas Notified Whom Blood Gas Notified Time Sodium Potassium Chloride Carbon Dioxide Anion Gap BUN Creatinine Estim Creat Clear Calc Est GFR (MDRD) Af Amer Est GFR (MDRD) Non-Af BUN/Creatinine Ratio Glucose Lactic Acid Calcium Phosphorus Magnesium Troponin I 0.051 H 0.046 H TSH Free T4 Urine Color Urine Clarity Urine pH Ur Specific [place] Urine Protein Urine Glucose (UA) Urine Ketones Urine Occult Blood Urine Nitrite Urine Bilirubin Urine Urobilinogen Ur Leukocyte Esterase Urine RBC Urine WBC Ur Squamous Epith Cells Urine Bacteria Urine Mucus Urine Opiates Screen Urine Methadone Screen Ur Barbiturates Screen Ur Phencyclidine Scrn Ur Amphetamines Screen U Methamphetamin-MDMA U Benzodiazepines Scrn Urine Cocaine Screen U Cannabinoids Screen Ur Drug Screen Comment Ethyl Alcohol MRSA (PCR) Negative 06/27/18 06/27/18 06/27/18 04:30 04:30 04:30 WBC 12.3 H RBC 3.96 L Hgb 10.5 L Hct 32.9 L MCV 83.1 MCH 26.5 L MCHC 31.9 L RDW 15.3 H RDW Differential 46.5 H Plt Count 241 MPV 11.7 Immature Gran % (Auto) 0.200 Neut % (Auto) 88.7 H Lymph % (Auto) 8.3 L [place] % (Auto) 2.6 Eos % (Auto) 0.1 Baso % (Auto) 0.1 Absolute Neuts (auto) 10.9 H Absolute Lymphs (auto) 1.02 Total Counted Not Reportable Specimen Type Sample Site pH Bicarbonate Actual POC Total CO2 Base Excess O2 Saturation ABG pCO2 ABG pO2 [place] Test O2 Delivery Device Liter Flow Blood Gas Notified Whom Blood Gas Notified Time Sodium 136 Potassium 3.5 Chloride 102 Carbon Dioxide 25.0 Anion Gap 9 BUN 6 L Creatinine 0.60 Estim Creat Clear Calc 48.57 Est GFR (MDRD) Af Amer 128 Est GFR (MDRD) Non-Af 106 BUN/Creatinine Ratio 10.0 Glucose 100 Lactic Acid Calcium 7.7 L Phosphorus 2.9 Magnesium 1.9 Troponin I TSH Free T4 Urine Color Urine Clarity Urine pH Ur Specific [place] Urine Protein Urine Glucose (UA) Urine Ketones Urine Occult Blood Urine Nitrite Urine Bilirubin Urine Urobilinogen Ur Leukocyte Esterase Urine RBC Urine WBC Ur Squamous Epith Cells Urine Bacteria Urine Mucus Urine Opiates Screen Urine Methadone Screen Ur Barbiturates Screen Ur Phencyclidine Scrn Ur Amphetamines Screen U Methamphetamin-MDMA U Benzodiazepines Scrn Urine Cocaine Screen U Cannabinoids Screen Ur Drug Screen Comment Ethyl Alcohol MRSA (PCR) 06/28/18 06/28/18 06/28/18 06:43 06:43 06:43 WBC 11.0 RBC 3.85 L Hgb 10.5 L Hct 31.7 L MCV 82.3 MCH 27.3 MCHC 33.1 RDW 15.0 H RDW Differential 45.2 H Plt Count 213 MPV 11.7 Immature Gran % (Auto) 0.200 Neut % (Auto) 78.9 H Lymph % (Auto) 11.4 L [place] % (Auto) 8.6 Eos % (Auto) 0.7 Baso % (Auto) 0.2 Absolute Neuts (auto) 8.7 H Absolute Lymphs (auto) 1.25 Total Counted Not Reportable Specimen Type Sample Site pH Bicarbonate Actual POC Total CO2 Base Excess O2 Saturation ABG pCO2 ABG pO2 [place] Test O2 Delivery Device Liter Flow Blood Gas Notified Whom Blood Gas Notified Time Sodium 142 Potassium 3.0 L Chloride 106 Carbon Dioxide 25.0 Anion Gap 11 BUN 5 L Creatinine 0.58 Estim Creat Clear Calc 48.75 Est GFR (MDRD) Af Amer 133 Est GFR (MDRD) Non-Af 110 BUN/Creatinine Ratio 8.6 L Glucose 76 Lactic Acid Calcium 8.2 L Phosphorus 1.6 L Magnesium 1.9 Troponin I TSH Free T4 Urine Color Urine Clarity Urine pH Ur Specific [place] Urine Protein Urine Glucose (UA) Urine Ketones Urine Occult Blood Urine Nitrite Urine Bilirubin Urine Urobilinogen Ur Leukocyte Esterase Urine RBC Urine WBC Ur Squamous Epith Cells Urine Bacteria Urine Mucus Urine Opiates Screen Urine Methadone Screen Ur Barbiturates Screen Ur Phencyclidine Scrn Ur Amphetamines Screen U Methamphetamin-MDMA U Benzodiazepines Scrn Urine Cocaine Screen U Cannabinoids Screen Ur Drug Screen Comment Ethyl Alcohol MRSA (PCR) Microbiology 06/27/18 06:00 Mucosa - Nasopharyngeal Respiratory Panel (PCR) - Final Rhinovirus 06/26/18 23:30 Urine Catheter - Catheter Streptococcus pneumoniae Antigen (M - Final 06/26/18 23:30 Urine Catheter - Catheter Legionella Antigen - Final Medical Necessity - Tobacco Use Smoking Status: Former smoker Assessment/Plan All Active Problems Seizure (Acute) Cardiac enzymes elevated (Acute) PAF (paroxysmal atrial fibrillation) (Acute) Pneumonia (Acute) Sepsis (Acute) Acute respiratory failure with hypoxia (Acute) Influenza A (Acute) Mental status change (Acute) RECOMMENDATIONS: 1. Continue Dilantin as ordered. 2. MRI per neurology request. 3. Likely discontinue antibiotics once cultures negative at 48 hours 4. Bedside swallow evaluation 5. Maintain seizure and aspiration precautions 6. Wean supplemental oxygen to maintain saturations at or above 90%. 7. Continue PPI and Lovenox for prophylaxis. 8. Okay to transfer from the intensive care unit from my perspective IMPRESSIONS: 1. Acute hypoxic respiratory failure Patient overall appears to be significantly improved compared to previous. Initial presentation likely complicated by rhinovirus, postictal state and probable hypoventilation. Patient currently doing well on 1 L. Will increase activity and pulmonary toileting. Attempt to wean off of supplemental oxygen therapy. No steroids are indicated at this time. Patient is on DVT Lovenox therapy 2. Encephalopathy RESOLVED > Secondary to seizure activity and subsequent postictal state in the setting of noncompliance with AED's. Neurology has been consulted to see patient. Will defer medical management/AED preference to neuro. EEG shows some generalized swelling, but no epileptiform discharges. Continue seizure precautions. 3. Paroxysmal atrial fibrillation/history of rheumatoid arthritis/hypertension/? Von Willebrand disease/chronic hepatitis C/depression/anxiety Complicates care, management, recovery and prognosis. Continue appropriate prophylaxis as ordered. Code Visit Inpatient E&M: 23431 [facility] Hosp L3
[2018-06-28] MEDS: Metoprolol Tartrate 5 MG/5 ML Vial IV (10:32)
[2018-06-28] MEDS: 0.9% NaCl Peripheral Flush Adult/Peds IV ×2 (10:36→21:17)
[2018-06-28 13:09] LABS: Erythrocyte Sedimentation Rate 12 mm/hr (0-30)
[2018-06-28 13:30] LABS: Potassium 2.9 mmol/L (3.5-5.1)
[2018-06-28] MEDS: Meloxicam 7.5 MG Tablet PO (13:41)
[2018-06-28] MEDS: Lacosamide 50 MG Tablet PO ×2 (15:49→21:15)
[2018-06-28] MEDS: Famotidine 20 MG Tablet PO (21:15)
[2018-06-29] VITALS (11 sets, daily range): BP systolic 128–164; BP diastolic 62–72; PULSE 75–94; RESP 16–18; TEMP 36.7–37.4; O2SAT 92–98
[2018-06-29] MEDS: 0.9% NaCl IVPB Med Flush (250 mL) 15 ML IV (03:37)
[2018-06-29] MEDS: Piperacil/Tazobactam 3.375 GM/50 ML ML IV ×2 (05:46→09:46)
[2018-06-29] MEDS: 0.9% NaCl Peripheral Flush Adult/Peds IV (05:46)
[2018-06-29 06:45] LABS: Absolute Lymphocyte Count 2.11 X10^3/ul (0.83-4.51); Absolute Neutrophil Count 6.9 X10^3/uL (2.0-7.7); Basophil# 0.04 X10^3/uL; Basophil% 0.4 % (0-1); Eosinophil# 0.23 X10^3/uL; Eosinophils% 2.2 % (0-5); Hematocrit 31.3 % (37-47); Hemoglobin 10.5 g/dl (12.0-15.0); Lymphocyte # 2.11 X10^3/ul (4.0); Lymphocyte % 20.2 % (19-41); Mean Corp Hgb Conc 33.5 g/gl (32-36); Mean Corpuscular Hgb 27.5 pg (27.0-32.0); Mean Corpuscular Volume 81.9 fL (81-99); Mean Platelet Vol. 11.7 fl (6.2-12.0); Monocyte# 1.17 X10^3/uL; Monocyte% 11.2 % (0-10); Neutrophil # 6.87 X10^3/uL (2.7-7.7); Neutrophil % 65.8 % (47-70); Platelet Count 223 K/mm3 (150-450); RBC Distribution Width CV 15.2 % (11.6-14.6); RBC Distribution Width SD 44.5 fl (35.1-43.9); Red Blood Count 3.82 M/mm3 (4.2-5.4); White Blood Count 10.4 K/mm3 (4.4-11.0)
[2018-06-29 06:54] LABS: POSITIVE COUNT NO; POSITIVE DIFFERENTIAL NO; POSITIVE MORPHOLOGY NO
[2018-06-29 06:59] LABS: Anion Gap 10 (5-15); BUN 4 mg/dL (7-18); BUN/Creat Ratio 5.1 RATIO (10-20); Calcium,Total 8.6 mg/dL (8.5-10.1); Chloride 109 mmol/L (98-107); Creatinine, Serum 0.78 mg/dL (0.55-1.02); EST Glomerular Filtration Rate 78 mL/min (>60); Est Glom Filt Rate - Afr Amer 95 mL/min (>60); Glucose 100 mg/dL (74-106); Potassium 4.5 mmol/L (3.5-5.1); Sodium Level 143 mmol/L (136-145)
[2018-06-29] MEDS: Famotidine 20 MG Tablet PO ×2 (09:50→20:59)
[2018-06-29] MEDS: Meloxicam 7.5 MG Tablet PO (09:50)
--- NOTE | 2018-06-29 10:21 | PCM.PN.INT ---
Subjective: Patient transferred out of the intensive care unit yesterday. No acute issues reported overnight including seizure activity. Patient feels back to baseline. Patient is not reporting productive cough at this time. Patient saturations have improved throughout the day. General: Alert, Oriented x3, Cooperative, No apparent distress, Well developed, Well nourished, - - Speaking in full sentences HEENT: Atraumatic, PERRLA, EOMI, Normocephalic, - - No scleral icterus or injection noted Oral: Moist Mucosa, No Gingival or Mucosal Lesions/ Ulcerations Neck: Supple, No JVD, No Nodes, Trachea Midline Lungs: Clear to auscultation, Normal air movement, No rhonchi, No wheeze, No rales, - - Symmetric expansion. No dullness to percussion. Cardiovascular: Regular rate, Regular Rhythm, Normal S1, Normal S2, No murmurs, No rub noted, No Gallop Abdomen: Bowel Sounds Present, Soft, Non Tender, Non-Distended Extremities: No clubbing, No cyanosis, No edema, Capillary Refill Less than 3 Seconds Skin: No rashes, No breakdown Musculoskeletal: No Tenderness to Palpation of Joints or Extremities Lymphatic: No Cervical, Supraclavicular, or Inguinal Adenopathy Neurological: Cranial nerves II-XII grossly intact, Neuro grossly intact, Motor Exam 5/5 strength throughout Psych/Mental Status: Alert and oriented to time, place, person, mood and affect Vital Signs Temp Pulse Resp BP Pulse Ox 36.8 C 82 18 138/63 H 96 06/29/18 09:40 06/29/18 09:40 06/29/18 09:40 06/29/18 09:40 06/29/18 09:40 Oxygen Flow Rate (L/min) 12 Oxygen Delivery Method Room Air Weight: 55.4 kg Body Mass Index (BMI) 20.4 Finger Stick Blood Glucose 117 Intake and Output for Last 24 Hours 06/27/18 06/28/18 06/29/18 23:59 23:59 23:59 Intake Total 2916 / 2916 4514 / 4514 1136 / 1136 Output Total 1575 / 1575 4550 / 4550 Balance 1341 / 1341 -36 / -36 1136 / 1136 Labs (Last 48 Hours) 06/28/18 06/28/18 06/28/18 06:43 06:43 06:43 WBC 11.0 RBC 3.85 L Hgb 10.5 L Hct 31.7 L MCV 82.3 MCH 27.3 MCHC 33.1 RDW 15.0 H RDW Differential 45.2 H Plt Count 213 MPV 11.7 Immature Gran % (Auto) 0.200 Neut % (Auto) 78.9 H Lymph % (Auto) 11.4 L [place] % (Auto) 8.6 Eos % (Auto) 0.7 Baso % (Auto) 0.2 Absolute Neuts (auto) 8.7 H Absolute Lymphs (auto) 1.25 Total Counted Not Reportable ESR Sodium 142 Potassium 3.0 L Chloride 106 Carbon Dioxide 25.0 Anion Gap 11 BUN 5 L Creatinine 0.58 Estim Creat Clear Calc 48.75 Est GFR (MDRD) Af Amer 133 Est GFR (MDRD) Non-Af 110 BUN/Creatinine Ratio 8.6 L Glucose 76 Calcium 8.2 L Phosphorus 1.6 L Magnesium 1.9 C-React Prot Ext Range 06/28/18 06/28/18 06/28/18 06:43 06:43 13:02 WBC RBC Hgb Hct MCV MCH MCHC RDW RDW Differential Plt Count MPV Immature Gran % (Auto) Neut % (Auto) Lymph % (Auto) [place] % (Auto) Eos % (Auto) Baso % (Auto) Absolute Neuts (auto) Absolute Lymphs (auto) Total Counted ESR 12 Sodium Potassium Cancelled 2.9 L Chloride Carbon Dioxide Anion Gap BUN Creatinine Estim Creat Clear Calc Est GFR (MDRD) Af Amer Est GFR (MDRD) Non-Af BUN/Creatinine Ratio Glucose Calcium Phosphorus Magnesium C-React Prot Ext Range 73.90 H 06/29/18 06/29/18 06:30 06:30 WBC 10.4 RBC 3.82 L Hgb 10.5 L Hct 31.3 L MCV 81.9 MCH 27.5 MCHC 33.5 RDW 15.2 H RDW Differential 44.5 H Plt Count 223 MPV 11.7 Immature Gran % (Auto) 0.200 Neut % (Auto) 65.8 Lymph % (Auto) 20.2 [place] % (Auto) 11.2 H Eos % (Auto) 2.2 Baso % (Auto) 0.4 Absolute Neuts (auto) 6.9 Absolute Lymphs (auto) 2.11 Total Counted Not Reportable ESR Sodium 143 Potassium 4.5 Chloride 109 H Carbon Dioxide 24.0 Anion Gap 10 BUN 4 L Creatinine 0.78 Estim Creat Clear Calc 48.40 Est GFR (MDRD) Af Amer 95 Est GFR (MDRD) Non-Af 78 BUN/Creatinine Ratio 5.1 L Glucose 100 Calcium 8.6 Phosphorus 2.0 L Magnesium C-React Prot Ext Range Microbiology 06/26/18 20:00 Blood Culture (Wb) - Anticubital Left Blood Culture - Preliminary No growth in 48 hours. 06/26/18 20:02 Blood Culture (Wb) - Anticubital Right Blood Culture - Preliminary No growth in 48 hours. 06/27/18 06:00 Mucosa - Nasopharyngeal Respiratory Panel (PCR) - Final Rhinovirus Medical Necessity - Tobacco Use Smoking Status: Former smoker Assessment/Plan All Active Problems Seizure (Acute) Cardiac enzymes elevated (Acute) PAF (paroxysmal atrial fibrillation) (Acute) Pneumonia (Acute) Sepsis (Acute) Acute respiratory failure with hypoxia (Acute) Influenza A (Acute) Mental status change (Acute) RECOMMENDATIONS: 1. Antiepileptics per neurology 2. MRI per neurology request. 3. Likely discontinue antibiotics once cultures negative at 48 hours 4. Walking oximetry to ensure adequate oxygenation 5. Maintain seizure and aspiration precautions 6. Wean supplemental oxygen to maintain saturations at or above 90%. 7. Hemodynamically stable on room air. Will sign off from a critical care perspective IMPRESSIONS: 1. Acute hypoxic respiratory failure RESOLVED > patient with rhinovirus and suspected aspiration. Patient is currently on room air and doing well. Will check a walking oximetry to ensure oxygen stability with activity. Otherwise, patient hemodynamically stable on room air. Will sign off from a critical care perspective. Patient does not have a significant leukocytosis and is positive for rhinovirus. Would be okay with short course of antibiotics. 2. Encephalopathy RESOLVED > Secondary to seizure activity and subsequent postictal state in the setting of noncompliance with AED's. Neurology has been consulted to see patient. Will defer medical management/AED preference to neuro. EEG shows some generalized swelling, but no epileptiform discharges. Continue seizure precautions. 3. Paroxysmal atrial fibrillation/history of rheumatoid arthritis/hypertension/? Von Willebrand disease/chronic hepatitis C/depression/anxiety Complicates care, management, recovery and prognosis. Continue appropriate prophylaxis as ordered. Code Visit Inpatient E&M: 10820 [facility] Hosp L2
[2018-06-29] MEDS: Lacosamide 50 MG Tablet PO ×2 (11:12→20:59)
--- NOTE | 2018-06-29 14:36 | PCM.PROGNOTE ---
<Susan Chaudhry - Last Filed: 06/29/18 14:58> Patient Problems: Active and Suspected Problems Cardiac enzymes elevated (Acute) PAF (paroxysmal atrial fibrillation) (Acute) Pneumonia (Acute) Sepsis (Acute) Acute respiratory failure with hypoxia (Acute) Subjective: Patient seen and examined. Resting comfortably in bed. No acute events overnight. Denies cough, fever, chills. No further seizure activity. - Physical Exam General: Alert, Oriented x3, Cooperative, No apparent distress HEENT: Atraumatic, PERRLA, EOMI, Normocephalic Oral: Moist Mucosa Neck: Supple, No JVD, Negative Carotid Bruits Lungs: Clear to auscultation, Normal air movement Cardiovascular: Regular rate, Regular Rhythm, Normal S1, Normal S2, No murmurs Abdomen: Bowel Sounds Present, Soft, Non Tender, Non-Distended Extremities: No clubbing, No cyanosis, No edema, Capillary Refill Less than 3 Seconds Skin: No rashes, No breakdown Musculoskeletal: No Tenderness to Palpation of Joints or Extremities Neurological: Cranial nerves II-XII grossly intact Psych/Mental Status: Normal Affect, Appropriate Vital Signs Temp Pulse Resp BP Pulse Ox 98.3 F 86 18 138/63 H 98 06/29/18 09:40 06/29/18 10:59 06/29/18 09:40 06/29/18 09:40 06/29/18 10:20 Oxygen Flow Rate (L/min) 12 Oxygen Delivery Method Room Air Weight: 122 lb 2.177 oz Body Mass Index (BMI) 20.4 Finger Stick Blood Glucose 117 Intake and Output for Last 24 Hours 06/27/18 06/28/18 06/29/18 23:59 23:59 23:59 Intake Total 2916 / 2916 4514 / 4514 1854.9 / 1854.9 Output Total 1575 / 1575 4550 / 4550 Balance 1341 / 1341 -36 / -36 1854.9 / 1854.9 Microbiology Past 72 Hours 06/26/18 20:00 Blood Culture - Preliminary Blood Culture (Wb) - Anticubital Left No growth in 48 hours. 06/26/18 20:02 Blood Culture - Preliminary Blood Culture (Wb) - Anticubital Right No growth in 48 hours. 06/27/18 06:00 Respiratory Panel (PCR) - Final Mucosa - Nasopharyngeal Rhinovirus 06/26/18 23:30 Streptococcus pneumoniae Antigen (M - Final Urine Catheter - Catheter 06/26/18 23:30 Legionella Antigen - Final Urine Catheter - Catheter Laboratory Tests Past 24 Hrs 06/29/18 06/29/18 06:30 06:30 WBC 10.4 RBC 3.82 L Hgb 10.5 L Hct 31.3 L MCV 81.9 MCH 27.5 MCHC 33.5 RDW 15.2 H RDW Differential 44.5 H Plt Count 223 MPV 11.7 Immature Gran % (Auto) 0.200 Neut % (Auto) 65.8 Lymph % (Auto) 20.2 [place] % (Auto) 11.2 H Eos % (Auto) 2.2 Baso % (Auto) 0.4 Absolute Neuts (auto) 6.9 Absolute Lymphs (auto) 2.11 Total Counted Not Reportable Sodium 143 Potassium 4.5 Chloride 109 H Carbon Dioxide 24.0 Anion Gap 10 BUN 4 L Creatinine 0.78 Estim Creat Clear Calc 48.40 Est GFR (MDRD) Af Amer 95 Est GFR (MDRD) Non-Af 78 BUN/Creatinine Ratio 5.1 L Glucose 100 Calcium 8.6 Phosphorus 2.0 L Medical Necessity - Tobacco Use Smoking Status: Former smoker Assessment/Plan All Active Problems Seizure (Acute) Cardiac enzymes elevated (Acute) PAF (paroxysmal atrial fibrillation) (Acute) Pneumonia (Acute) Sepsis (Acute) Acute respiratory failure with hypoxia (Acute) Influenza A (Acute) Mental status change (Acute) 1. Breakthrough seizure with history of seizure disorder and noncompliance with antiepileptic medications-neurology consulted. Patient started on Vimpat. EEG with no evidence of seizure activity, background slowing. Seizure precautions. MRI of brain pending. 2. Acute hypoxic respiratory failure secondary to acute rhinovirus and a suspected aspiration pneumonia-blood culture with no growth in 48 hours. Urine negative for strep and Legionella. Currently afebrile. Stable on room air. No leukocytosis. Discontinue IV Zosyn. Walking pulse ox prior to discharge. Albuterol aerosols. 3. Metabolic encephalopathy secondary to #2-resolved. 4. New onset paroxysmal atrial fibrillation-patient with atrial fibrillation on admission. Has remained sinus rhythm. Not on anticoagulation or rate control at this time. 5. Elevated troponin-suspect secondary to A. fib with RVR and admission. EKG without ST-T changes. Patient denies chest pain. 6. History of rheumatoid arthritis-not on regimen. 7. Hypertension-continue home lisinopril regimen. 8. Von Willebrand disease 9. Chronic hepatitis C 10. Anxiety/depression-not on home regimen. 11. Osteoporosis-continue Fosamax regimen. DVT prophylaxis-SCDs This patient was seen by KAVON Browning under the supervision of Dr. Honeycutt. <Fabienne Honeycutt Sridevi - Last Filed: 06/29/18 16:33> - Physical Exam Vital Signs Temp Pulse Resp BP Pulse Ox 98.3 F 86 18 138/63 H 98 06/29/18 09:40 06/29/18 10:59 06/29/18 09:40 06/29/18 09:40 06/29/18 10:20 Oxygen Flow Rate (L/min) 12 Oxygen Delivery Method Room Air Weight: 122 lb 2.177 oz Body Mass Index (BMI) 20.4 Finger Stick Blood Glucose 117 Intake and Output for Last 24 Hours 06/27/18 06/28/18 06/29/18 23:59 23:59 23:59 Intake Total 2916 / 2916 4514 / 4514 1854.9 / 1854.9 Output Total 1575 / 1575 4550 / 4550 Balance 1341 / 1341 -36 / -36 1854.9 / 1854.9 Microbiology Past 72 Hours 06/26/18 20:00 Blood Culture - Preliminary Blood Culture (Wb) - Anticubital Left No growth in 48 hours. 06/26/18 20:02 Blood Culture - Preliminary Blood Culture (Wb) - Anticubital Right No growth in 48 hours. 06/27/18 06:00 Respiratory Panel (PCR) - Final Mucosa - Nasopharyngeal Rhinovirus 06/26/18 23:30 Streptococcus pneumoniae Antigen (M - Final Urine Catheter - Catheter 06/26/18 23:30 Legionella Antigen - Final Urine Catheter - Catheter Laboratory Tests Past 24 Hrs 06/29/18 06/29/18 06:30 06:30 WBC 10.4 RBC 3.82 L Hgb 10.5 L Hct 31.3 L MCV 81.9 MCH 27.5 MCHC 33.5 RDW 15.2 H RDW Differential 44.5 H Plt Count 223 MPV 11.7 Immature Gran % (Auto) 0.200 Neut % (Auto) 65.8 Lymph % (Auto) 20.2 [place] % (Auto) 11.2 H Eos % (Auto) 2.2 Baso % (Auto) 0.4 Absolute Neuts (auto) 6.9 Absolute Lymphs (auto) 2.11 Total Counted Not Reportable Sodium 143 Potassium 4.5 Chloride 109 H Carbon Dioxide 24.0 Anion Gap 10 BUN 4 L Creatinine 0.78 Estim Creat Clear Calc 48.40 Est GFR (MDRD) Af Amer 95 Est GFR (MDRD) Non-Af 78 BUN/Creatinine Ratio 5.1 L Glucose 100 Calcium 8.6 Phosphorus 2.0 L Assessment/Plan Patient seen by Susan Chaudhry NP-C under my supervision Patient has complaints and feels well. She denies any fever chills, cough or chest pain, shortness of breath, abdominal pain, diarrhea vomiting. She has not had any other seizures. Labs and vitals reviewed. She is due for an MRI today o/e: Vital Signs Height 5 ft 5 in Weight: 122 lb 2.177 oz Weight in Pounds 122.1 lbs Pulse Ox 98 Temperature 98.3 F Pulse Rate 86 Respiratory Rate 18 Blood Pressure [BP] 145/72 Blood Pressure 138/63 Blood Pressure Position [BP] Semi-Fowlers Blood Pressure Position Semi-Fowlers General: Alert, Oriented x3, Cooperative, No apparent distress HEENT: Atraumatic, PERRLA, EOMI, Normocephalic Oral: Moist Mucosa Neck: Supple, No JVD, Negative Carotid Bruits Lungs: Clear to auscultation, Normal air movement Cardiovascular: Regular rate, Regular Rhythm, Normal S1, Normal S2, No murmurs Abdomen: Bowel Sounds Present, Soft, Non Tender, Non-Distended Extremities: No clubbing, No cyanosis, No edema, Capillary Refill Less than 3 Seconds Skin: No rashes, No breakdown Musculoskeletal: No Tenderness to Palpation of Joints or Extremities Neurological: Cranial nerves II-XII grossly intact Psych/Mental Status: Normal Affect, Appropriate Plan is to continue Vimpat as pe neurology. EEG showed khalida vidence of seizure activity. MRI of barin is pending. Blood culture showed no growth in 48 hours. IV Zosyn DC'd. Patient has remained in sinus rhythm since admission even though she came in with paroxysmal A. fib. Currently not on any anticoagulation; she has history of von Willebrand's disease. As of management as per Susan JACOBSON's note. Agree with above note, assessment and management by Susan JACOBSON. Code Visit Inpatient E&M: 14148 Subs Hosp L3
[2018-06-30 03:00] VITALS: BP 130/61; PULSE 80; RESP 16; TEMP 37.2; O2SAT 96
[2018-06-30 03:07] VITALS: PULSE 81
[2018-06-30 07:08] VITALS: PULSE 101
[2018-06-30 07:22] LABS: Hematocrit 30.8 % (37-47); Hemoglobin 10.1 g/dl (12.0-15.0); Mean Corp Hgb Conc 32.8 g/gl (32-36); Mean Corpuscular Hgb 27.2 pg (27.0-32.0); Mean Corpuscular Volume 82.8 fL (81-99); Mean Platelet Vol. 12.8 fl (6.2-12.0); Platelet Count 246 K/mm3 (150-450); RBC Distribution Width CV 15.1 % (11.6-14.6); RBC Distribution Width SD 44.9 fl (35.1-43.9); Red Blood Count 3.72 M/mm3 (4.2-5.4); White Blood Count 9.1 K/mm3 (4.4-11.0)
[2018-06-30 07:24] LABS: Scan Indicated on CBC? Y/N NO
[2018-06-30 07:36] LABS: Anion Gap 12 (5-15); BUN 6 mg/dL (7-18); BUN/Creat Ratio 8.8 RATIO (10-20); Calcium,Total 9.1 mg/dL (8.5-10.1); Chloride 107 mmol/L (98-107); Creatinine, Serum 0.68 mg/dL (0.55-1.02); EST Glomerular Filtration Rate 92 mL/min (>60); Est Glom Filt Rate - Afr Amer 111 mL/min (>60); Glucose 87 mg/dL (74-106); Potassium 3.7 mmol/L (3.5-5.1); Sodium Level 144 mmol/L (136-145)
[2018-06-30] MEDS: Meloxicam 7.5 MG Tablet PO (09:31)
[2018-06-30] MEDS: Famotidine 20 MG Tablet PO (09:31)
[2018-06-30] MEDS: Lacosamide 50 MG Tablet PO (09:31)
[2018-06-30 10:15] VITALS: BP 136/72; PULSE 81; RESP 18; TEMP 37.2; O2SAT 99
[2018-06-30 10:59] VITALS: PULSE 81
--- NOTE | 2018-06-30 11:02 | DCINST_ITS ---
- Discharge Diagnoses Current Active Problems: Current Active and Chronic Problems Cardiac enzymes elevated (Acute) PAF (paroxysmal atrial fibrillation) (Acute) Pneumonia (Acute) Sepsis (Acute) Acute respiratory failure with hypoxia (Acute) You will use the following diet at home:: Cardiac Discharge Activity: May Not Drive - Until cleared by neurology Call your doctor if you observe: Shortness of breath, Dizziness, Chest pain, Increased palpitations (irregular heartbeat) Allergies/Adverse Reactions: Allergies codeine Allergy (Verified 06/26/18 18:49) Hives morphine Allergy (Verified 06/26/18 18:49) Hives Opioids - Morphine Analogues Allergy (Verified 06/26/18 18:49) Hives anticoagulants Allergy (Uncoded 06/28/18 13:49) Bleeding amicar Adverse Reaction (Uncoded 06/26/18 18:49) Other sassafrass Adverse Reaction (Uncoded 06/26/18 18:49) Nausea/Vom/Diarrhea Medications to take at Discharge Lisinopril [Zestril] 10 mg PO DAILY 05/18/16 Omeprazole [Prilosec] 40 mg PO BID 05/18/16 Alendronate Sodium [Fosamax] 10 mg PO DAILY@0700 06/26/18 Potassium Chloride 20 meq PO BID 06/26/18 Lacosamide [Vimpat] 50 mg PO BID #90 tablet 06/30/18 Meloxicam [Mobic] 7.5 mg PO DAILY #30 tablet 06/30/18 The following prescriptions were given: Meloxicam [Mobic] 7.5 mg PO DAILY #30 tablet Lacosamide [Vimpat] 50 mg PO BID #90 tablet Primary Care Physician: Robert Patel MD [Primary Care Provider] - Please follow up with your Primary Care Physician in: 1 Week Test Results: Test results from this visit will be discussed in further detail at your follow- up appointment, if applicable. Please Follow Up With: Jeannette Wilson MD When: 6 Weeks Proposed Discharge Date: 06/30/18
--- NOTE | 2018-06-30 11:03 | PCM.DC.SUM ---
Discharge Date and Diagnosis Date of Admission: 06/26/18 Date of Discharge: 06/30/18 - Primary Discharge Diagnosis Active and Suspected Problems 1. Breakthrough seizure with history of seizure disorder and noncompliance with antiepileptic medications 2. Acute hypoxic respiratory failure secondary to acute rhinovirus and suspected aspiration pneumonia 3. Metabolic encephalopathy secondary to #2, resolved 4. Brief episode of paroxysmal A. fib 5. Elevated troponin, ACS ruled out 6. History of rheumatoid arthritis 7. Hypertension 8. Von Willebrand disease 9. Chronic hepatitis C 10. Anxiety/depression 11. Osteoporosis - Secondary Discharge Diagnosis Chronic Problems Anxiety and depression (Chronic) Narcolepsy (Chronic) Hep C (Chronic) Von Willebrand disease (Chronic) Gastroesophageal reflux disease (Chronic) Rheumatoid arthritis (Chronic) Hospital Course and Treatment Imaging Results: Diagnostic Data Brain CT 06/26/18 18:52 IMPRESSION: Minor periventricular white matter ischemic changes MRI would be helpful for further evaluation if clinically warranted Electronically Signed: Akbar Jo MD at 21:02 EST , Service support , Chest X-Ray 06/26/18 18:56 IMPRESSION: Bilateral infiltrates worrisome for pneumonia, predominating in the upper lobes. Electronically Signed: Steve Mars MD at 19:31 EST , Service support , Brain MRI 06/27/18 13:25 IMPRESSION: Mild periventricular white matter ischemic changes without evidence for acute infarct. No evidence for acute infarct Slight interval improvement since previous study Electronically Signed: Akbar Jo MD at 16:05 EST , Service support , Dr. Wilson- Neurology Dr. Giraldo/Dr. Horta- Pulmonary Medicine/Manager Php Operations: None Procedures: 2-D Echocardiogram, Electroencephalogram Summary of Care Provided: The patient is a 67 year old F admitted 06/26/2018 due to seizures, unresponsiveness, cough. 1. Breakthrough seizure with history of seizure disorder and noncompliance with antiepileptic medications-neurology consulted. Patient started on Vimpat. She will continue Vimpat 50 mg twice daily through followed by Vimpat 100 mg twice daily thereafter. EEG with no evidence of seizure activity, background slowing. Seizure precautions. MRI of brain showed no evidence of acute infarct. Follow-up with neurology in 6 weeks. [address] until cleared by neurology. Follow-up with primary care physician in 1 week. 2. Acute hypoxic respiratory failure secondary to acute rhinovirus and a suspected aspiration pneumonia-blood culture with no growth in 48 hours. Urine negative for strep and Legionella. Afebrile. Stable on room air. No leukocytosis. Further antibiotics discontinued. 3. Metabolic encephalopathy secondary to #2-resolved. 4. New onset paroxysmal atrial fibrillation-patient with atrial fibrillation on admission. Has remained sinus rhythm. Not on anticoagulation or rate control at this time. Echocardiogram showed an EF of 55%, stage I diastolic dysfunction, structurally normal valves. 5. Elevated troponin-suspect secondary to A. fib with RVR and admission. EKG without ST-T changes. Patient denies chest pain. Trop did not trend. 6. History of rheumatoid arthritis-not on regimen. 7. Hypertension-continue home lisinopril regimen. 8. Von Willebrand disease 9. Chronic hepatitis C 10. Anxiety/depression-not on home regimen. 11. Osteoporosis-continue Fosamax regimen. General: Alert, Oriented x3, Cooperative, No apparent distress HEENT: Atraumatic, PERRLA, EOMI, Normocephalic Oral: Moist Mucosa Neck: Supple, No JVD, Negative Carotid Bruits Lungs: Clear to auscultation, Normal air movement Cardiovascular: Regular rate, Regular Rhythm, Normal S1, Normal S2, No murmurs Abdomen: Bowel Sounds Present, Soft, Non Tender, Non-Distended Extremities: No clubbing, No cyanosis, No edema, Capillary Refill Less than 3 Seconds Skin: No rashes, No breakdown Musculoskeletal: No Tenderness to Palpation of Joints or Extremities Neurological: Cranial nerves II-XII grossly intact Psych/Mental Status: Normal Affect, Appropriate Patient seen and examined prior to discharge. Physical assessment as noted above. Patient is stable for discharge home with a follow-up recommendations as noted above per This patient was seen by KAVON Browning under the supervision of Dr. Akers. - Physical Exam Vital Signs Temp Pulse Resp BP Pulse Ox 98.9 F 81 18 136/72 H 99 06/30/18 10:15 06/30/18 10:15 06/30/18 10:15 06/30/18 10:15 06/30/18 10:15 Oxygen Flow Rate (L/min) 12 Oxygen Delivery Method Room Air Weight: 126 lb 1.671 oz Body Mass Index (BMI) 20.4 Finger Stick Blood Glucose 117 Intake and Output for Last 24 Hours 06/28/18 06/29/18 06/30/18 23:59 23:59 23:59 Intake Total 4514 / 4514 3704.9 / 3704.9 620 / 620 Output Total 4550 / 4550 Balance -36 / -36 3704.9 / 3704.9 620 / 620 Microbiology Past 72 Hours 06/26/18 20:00 Blood Culture - Preliminary Blood Culture (Wb) - Anticubital Left No growth in 48 hours. 06/26/18 20:02 Blood Culture - Preliminary Blood Culture (Wb) - Anticubital Right No growth in 48 hours. 06/27/18 06:00 Respiratory Panel (PCR) - Final Mucosa - Nasopharyngeal Rhinovirus Laboratory Tests Past 24 Hrs 06/30/18 06/30/18 06:05 06:05 WBC 9.1 RBC 3.72 L Hgb 10.1 L Hct 30.8 L MCV 82.8 MCH 27.2 MCHC 32.8 RDW 15.1 H RDW Differential 44.9 H Plt Count 246 MPV 12.8 H Sodium 144 Potassium 3.7 Chloride 107 Carbon Dioxide 25.0 Anion Gap 12 BUN 6 L Creatinine 0.68 Estim Creat Clear Calc 49.80 Est GFR (MDRD) Af Amer 111 Est GFR (MDRD) Non-Af 92 BUN/Creatinine Ratio 8.8 L Glucose 87 Calcium 9.1 Discharge Diet: Low fat/ Low Cholesterol Discharge Activity: May Not Drive - Until cleared by neurology Call your doctor if you observe: Shortness of breath, Dizziness, Chest pain, Increased palpitations (irregular heartbeat) Home Medications: Medications to take at Discharge Lisinopril [Zestril] 10 mg PO DAILY 05/18/16 Omeprazole [Prilosec] 40 mg PO BID 05/18/16 Alendronate Sodium [Fosamax] 10 mg PO DAILY@0700 06/26/18 Potassium Chloride 20 meq PO BID 06/26/18 Lacosamide [Vimpat] 50 mg PO BID #90 tablet 11/27/18 Meloxicam [Mobic] 7.5 mg PO DAILY #30 tablet 06/30/18 Following Prescrptions Were Given to Patient: Meloxicam [Mobic] 7.5 mg PO DAILY #30 tablet Lacosamide [Vimpat] 50 mg PO BID #90 tablet Primary Care Physician: Robert Patel MD [Primary Care Provider] - Please follow up with your Primary Care Physician in: 1 Week Please Follow Up With: Jeannette Wilson MD When: 6 Weeks Disposition: Home Minutes spent on discharge:: 35 Patient Condition:: Stable Medical Necessity - Tobacco Use Smoking Status: Former smoker Meaningful Use Info Meaningful Use Diagnoses (Choose all that apply): None applicable
--- NOTE | 2018-06-30 11:11 | DS.PCM_ITS ---
Discharge Date and Diagnosis Date of Admission: 06/26/18 Date of Discharge: 06/30/18 - Primary Discharge Diagnosis Active and Suspected Problems 1. Breakthrough seizure with history of seizure disorder and noncompliance with antiepileptic medications 2. Acute hypoxic respiratory failure secondary to acute rhinovirus and suspected aspiration pneumonia 3. Metabolic encephalopathy secondary to #2, resolved 4. Brief episode of paroxysmal A. fib 5. Elevated troponin, ACS ruled out 6. History of rheumatoid arthritis 7. Hypertension 8. Von Willebrand disease 9. Chronic hepatitis C 10. Anxiety/depression 11. Osteoporosis - Secondary Discharge Diagnosis Chronic Problems Anxiety and depression (Chronic) Narcolepsy (Chronic) Hep C (Chronic) Von Willebrand disease (Chronic) Gastroesophageal reflux disease (Chronic) Rheumatoid arthritis (Chronic) Hospital Course and Treatment Imaging Results: Diagnostic Data Brain CT 06/26/18 18:52 IMPRESSION: Minor periventricular white matter ischemic changes MRI would be helpful for further evaluation if clinically warranted Electronically Signed: Akbar Jo MD at 21:02 EST , Service support , Chest X-Ray 06/26/18 18:56 IMPRESSION: Bilateral infiltrates worrisome for pneumonia, predominating in the upper lobes. Electronically Signed: Steve Mars MD at 19:31 EST , Service support , Brain MRI 06/27/18 13:25 IMPRESSION: Mild periventricular white matter ischemic changes without evidence for acute infarct. No evidence for acute infarct Slight interval improvement since previous study Electronically Signed: Akbar Jo MD at 16:05 EST , Service support , Dr. Wilson- Neurology Dr. Giraldo/Dr. Horta- Pulmonary Medicine/Grant Specialist Operations: None Procedures: 2-D Echocardiogram, Electroencephalogram Summary of Care Provided: The patient is a 67 year old F admitted 06/26/2018 due to seizures, unresponsiveness, cough. 1. Breakthrough seizure with history of seizure disorder and noncompliance with antiepileptic medications-neurology consulted. Patient started on Vimpat. She will continue Vimpat 50 mg twice daily through followed by Vimpat 100 mg twice daily thereafter. EEG with no evidence of seizure activity, background slowing. Seizure precautions. MRI of brain showed no evidence of acute infarct. Follow-up with neurology in 6 weeks. No driving until cleared by neurology. Follow-up with primary care physician in 1 week. 2. Acute hypoxic respiratory failure secondary to acute rhinovirus and a suspected aspiration pneumonia-blood culture with no growth in 48 hours. Urine negative for strep and Legionella. Afebrile. Stable on room air. No leukocytosis. Further antibiotics discontinued. 3. Metabolic encephalopathy secondary to #2-resolved. 4. New onset paroxysmal atrial fibrillation-patient with atrial fibrillation on admission. Has remained sinus rhythm. Not on anticoagulation or rate control at this time. Echocardiogram showed an EF of 55%, stage I diastolic dysfunction, structurally normal valves. 5. Elevated troponin-suspect secondary to A. fib with RVR and admission. EKG without ST-T changes. Patient denies chest pain. Trop did not trend. 6. History of rheumatoid arthritis-not on regimen. 7. Hypertension-continue home lisinopril regimen. 8. Von Willebrand disease 9. Chronic hepatitis C 10. Anxiety/depression-not on home regimen. 11. Osteoporosis-continue Fosamax regimen. General: Alert, Oriented x3, Cooperative, No apparent distress HEENT: Atraumatic, PERRLA, EOMI, Normocephalic Oral: Moist Mucosa Neck: Supple, No JVD, Negative Carotid Bruits Lungs: Clear to auscultation, Normal air movement Cardiovascular: Regular rate, Regular Rhythm, Normal S1, Normal S2, No murmurs Abdomen: Bowel Sounds Present, Soft, Non Tender, Non-Distended Extremities: No clubbing, No cyanosis, No edema, Capillary Refill Less than 3 Seconds Skin: No rashes, No breakdown Musculoskeletal: No Tenderness to Palpation of Joints or Extremities Neurological: Cranial nerves II-XII grossly intact Psych/Mental Status: Normal Affect, Appropriate Patient seen and examined prior to discharge. Physical assessment as noted above. Patient is stable for discharge home with a follow-up recommendations as noted above per This patient was seen by KAVON Browning under the supervision of Dr. Akers. - Physical Exam Vital Signs Temp Pulse Resp BP Pulse Ox 98.9 F 81 18 136/72 H 99 06/30/18 10:15 06/30/18 10:15 06/30/18 10:15 06/30/18 10:15 06/30/18 10:15 Oxygen Flow Rate (L/min) 12 Oxygen Delivery Method Room Air Weight: 126 lb 1.671 oz Body Mass Index (BMI) 20.4 Finger Stick Blood Glucose 117 Intake and Output for Last 24 Hours 06/28/18 06/29/18 06/30/18 23:59 23:59 23:59 Intake Total 4514 / 4514 3704.9 / 3704.9 620 / 620 Output Total 4550 / 4550 Balance -36 / -36 3704.9 / 3704.9 620 / 620 Microbiology Past 72 Hours 06/26/18 20:00 Blood Culture - Preliminary Blood Culture (Wb) - Anticubital Left No growth in 48 hours. 06/26/18 20:02 Blood Culture - Preliminary Blood Culture (Wb) - Anticubital Right No growth in 48 hours. 06/27/18 06:00 Respiratory Panel (PCR) - Final Mucosa - Nasopharyngeal Rhinovirus Laboratory Tests Past 24 Hrs 06/30/18 06/30/18 06:05 06:05 WBC 9.1 RBC 3.72 L Hgb 10.1 L Hct 30.8 L MCV 82.8 MCH 27.2 MCHC 32.8 RDW 15.1 H RDW Differential 44.9 H Plt Count 246 MPV 12.8 H Sodium 144 Potassium 3.7 Chloride 107 Carbon Dioxide 25.0 Anion Gap 12 BUN 6 L Creatinine 0.68 Estim Creat Clear Calc 49.80 Est GFR (MDRD) Af Amer 111 Est GFR (MDRD) Non-Af 92 BUN/Creatinine Ratio 8.8 L Glucose 87 Calcium 9.1 Discharge Diet: Low fat/ Low Cholesterol Discharge Activity: May Not Drive - Until cleared by neurology Call your doctor if you observe: Shortness of breath, Dizziness, Chest pain, Increased palpitations (irregular heartbeat) Home Medications: Medications to take at Discharge Lisinopril [Zestril] 10 mg PO DAILY 05/18/16 Omeprazole [Prilosec] 40 mg PO BID 05/18/16 Alendronate Sodium [Fosamax] 10 mg PO DAILY@0700 06/26/18 Potassium Chloride 20 meq PO BID 06/26/18 Lacosamide [Vimpat] 50 mg PO BID #90 tablet 11/27/18 Meloxicam [Mobic] 7.5 mg PO DAILY #30 tablet 06/30/18 Following Prescrptions Were Given to Patient: Meloxicam [Mobic] 7.5 mg PO DAILY #30 tablet Lacosamide [Vimpat] 50 mg PO BID #90 tablet Primary Care Physician: Robert Patel MD [Primary Care Provider] - Please follow up with your Primary Care Physician in: 1 Week Please Follow Up With: Jeannette Wilson MD When: 6 Weeks Disposition: Home Minutes spent on discharge:: 35 Patient Condition:: Stable Medical Necessity - Tobacco Use Smoking Status: Former smoker Meaningful Use Info Meaningful Use Diagnoses (Choose all that apply): None applicable
--- NOTE | 2018-06-30 11:53 | PHA.DC.MC ---
Pharmacy Service has performed discharge medication reconciliation and counseling for this patient. The patient's discharge medication list was reviewed for discrepancies and discrepancies were resolved. The patient was counseled on the following discharge medications and changes in medications for homegoing were reviewed. The Reason for Use, instructions for use, and potential side effects were reviewed for all new medications. The patient's questions regarding all of their medications were answered. The patient was able to verbally demonstrate an understanding of their discharge medications. Lacosamide [Vimpat] 50 mg PO BID #90 tablet 06/30/18 Meloxicam [Mobic] 7.5 mg PO DAILY #30 tablet 06/30/18
--- NOTE | 2018-06-30 13:17 | CASEMGMT ---
NIEVES BRADLEY NOTE: Brown check completed for Vimpat at [facility] @ [employer]. Cost for 90 tablets is $327. Call placed to [facility] and Medication was approved for a lower tier level. Vimpat was Tier 4 and is now Tier 3. Pt's daughter stated that preferred pharmacy for pt's coverage is [facility] and that she would like to have medication script sent there. Call placed to [facility]. Susan Chaudhry called in script for Vimpat to [facility]. Brown check completed for Vimpat @ [facility] @ and is $47 for 60 tablets. Pt and daughter made aware and they state that that amt is affordable. RNZabrina, stated pt ready for discharge. Pt and daughter aware. Transport called for pt to be taken off unit via W/C. Semaj TABARES RN CM
--- NOTE | 2018-07-01 14:09 | CASEMGMT ---
NIEVES BRADLEY NOTE: Daughter called to speak with NIEVES BRADLEY re: Vimpat. Daughter states that pt's prescription coverage insurance will be changing in 2019 and was calling to inquire about how to go about getting Vimpat cost lowered next year. NIEVES BRADLEY instructed daughter to contact pt's PCP to have them take care of this for pt for the 2019 year. Semaj TABARES RN, CM
--- NOTE | 2018-07-01 17:08 | CASEMGMT ---
NIEVES BRADLEY Discharge Follow-up Phone Call: DESEAN: Julissa Strata: 4 Call Date: 07/01/18 Discharge Date: 06/30/18 Time of Call: 1705 Duration: 5 minutes ? Admitting Diagnosis: Breakthrough seizure, rhinovirus/pneumonia This RN MIRNA telephoned patient in regard to discharge follow-up. Pt's daughter Patti answered and relayed that the patient has been doing well since discharge and has been more spry today. Reviewed the follow-up appointments made with the PCP and Dr. Wilson. Patti states they have an appointment that had been previously scheduled for 07/07 at 1:20 that they plan to attend and will cancel the 07/08 appointment. Patti denies any further questions or concerns regarding the discharge instructions. Scotty Layton RN
== END 2018-06-30 13:19 | disposition home or self-care (01) | DRG 871 ==
LOC: ED 19:14 → ICU 22:50 → PCU 06-28 18:12 → ICU 06-29 12:36
PROVIDERS: Internal Medicine; Internal Medicine Critical Care Medicine; Nurse Practitioner Family; Admitting Provider Family Medicine; Emergency Provider Emergency Medicine; Family Provider Family Medicine; PCP Family Medicine; Visit Provider Internal Medicine
DX: A41.9 Sepsis, unspecified organism (principal); J69.0 Pneumonitis due to inhalation of food and vomit; J96.01 Acute respiratory failure with hypoxia; G93.41 Metabolic encephalopathy; D68.0 Von Willebrand disease; G40.409 Other generalized epilepsy and epileptic syndromes, not intractable, without status epilepticus; J06.9 Acute upper respiratory infection, unspecified; B97.89 Other viral agents as the cause of diseases classified elsewhere; B18.2 Chronic viral hepatitis C; M06.9 Rheumatoid arthritis, unspecified; Z91.14 Patient's other noncompliance with medication regimen; B34.8 Other viral infections of unspecified site; I48.0 Paroxysmal atrial fibrillation; I10 Essential (primary) hypertension; M81.0 Age-related osteoporosis without current pathological fracture; R74.8 Abnormal levels of other serum enzymes; F32.9 Major depressive disorder, single episode, unspecified; F41.9 Anxiety disorder, unspecified; K21.9 Gastro-esophageal reflux disease without esophagitis; G47.419 Narcolepsy without cataplexy; Z87.891 Personal history of nicotine dependence; Z79.83 Long term (current) use of bisphosphonates; Z79.899 Other long term (current) drug therapy
CPT/HCPCS: 36415; 36600; 51702; 70450; 70551; 71045; 80048; 80307; 80320; 81001; 82803; 83605; 83735; 84100; 84132; 84439; 84443; 84484; 85025; 85027; 85652; 86140; 87040; 87449; 87633; 87641; 93005; 93306; 95819; 97162; 97165; 97802; 99251; 99285; J7030; J7040; J7050; A4216; C9254; G0463; G0480; J3490

== ENCOUNTER → 2018-07-06 12:39 | Outpatient (CLI) | payer MEDICARE, OTHER, SELFPAY ==
[2018-06-26 23:05] VITALS: BMI 20.4
[2018-07-06 14:07] LABS: Anion Gap 11 (5-15); BUN 6 mg/dL (7-18); BUN/Creat Ratio 7.5 RATIO (10-20); Calcium,Total 9.3 mg/dL (8.5-10.1); Chloride 105 mmol/L (98-107); EST Glomerular Filtration Rate 77 mL/min (>60); Est Glom Filt Rate - Afr Amer 93 mL/min (>60); Glucose 95 mg/dL (74-106); Potassium 3.6 mmol/L (3.5-5.1); Sodium Level 143 mmol/L (136-145)
--- OUTSIDE RECORDS SUMMARY | 2018-08-29 19:12 | XMS RPT_ITS ---
:1950 Author Organization OHIP Support Name Relationship Address Phone SELENE ROLLINS Unavailable [address] + [place] [address] R Unavailable Unavailable Unavailable SAKSHI, BETTINA Unavailable [address] + [place] [address] RIA, SELENE Unavailable [address] + [place] [address] R Unavailable Unavailable Unavailable SAKSHI, BETTINA Unavailable [address] + [place] [address] RIA, SELENE Unavailable [address] + [place] [address] R Unavailable Unavailable Unavailable SAKSHI, BETTINA Unavailable [address] + [place] [address] RIA, SELENE Unavailable [address] + [place] [address] R Unavailable Unavailable Unavailable SAKSHI, BETTINA Unavailable [address] + [place] [address] RIA, SELENE Unavailable [address] + [place] [address] R Unavailable Unavailable Unavailable SAKSHI, BETTINA Unavailable [address] + [place] [address] RIA, SELENE Unavailable [address] + [place] [address] R Unavailable Unavailable Unavailable SAKSHI, BETTINA Unavailable [address] + [place] [address] RIA, SELENE Unavailable [address] + [place] [address] R Unavailable Unavailable Unavailable SAKSHI, BETTINA Unavailable [address] + [place] [address] RIA, SELENE Unavailable [address] + [place] [address] R Unavailable Unavailable Unavailable SAKSHI, BETTINA Unavailable [address] + [place] [address] RIA, SELENE Unavailable [address] + [place] [address] R Unavailable Unavailable Unavailable SAKSHI, BETTINA Unavailable [address] + [place] [address] RIA, SELENE Unavailable [address] + [place] [address] R Unavailable Unavailable Unavailable SAKSHI, BETTINA Unavailable [address] + [place] [address] RIA, SELENE Unavailable [address] + [place] [address] R Unavailable Unavailable Unavailable SAKSHI, BETTINA Unavailable [address] + [place] [address] RIA, SELENE Unavailable [address] + [place] [address] R Unavailable Unavailable Unavailable SAKSHI, BETTINA Unavailable [address] + [place] [address] RIA, SELENE Unavailable [address] + [place] [address] R Unavailable Unavailable Unavailable SAKSHI, BETTINA Unavailable [address] + [place] [address] RIA, SELENE Unavailable [address] + [place] [address] R Unavailable Unavailable Unavailable SAKSHI, BETTINA Unavailable [address] + [place] [address] RIA, SELENE Unavailable [address] + [place] [address] R Unavailable Unavailable Unavailable SAKSHI, BETTINA Unavailable [address] + [place] [address] RIA, SELENE Unavailable [address] + [place] [address] R Unavailable Unavailable Unavailable BRENNA CANTORLE Unavailable [address] + [place] [address] RIA, SELENE Unavailable [address] + [place] [address] R Unavailable Unavailable Unavailable SAKSHI BETTINA Unavailable [address] + [place] [address] RIA, SELENE Unavailable [address] [phone] [place] [address] R Unavailable Unavailable Unavailable SAKSHI BETTINA Unavailable [address] [phone] [place] [address] RIA, SELENE Unavailable [address] [phone] [place] [address] R Unavailable Unavailable Unavailable BRENNA CANTORLE Unavailable [address] [phone] [place] [address] RIA, SELENE Unavailable [address] [phone] [place] [address] R Unavailable Unavailable Unavailable BETTINA CANTOR Unavailable [address] [phone] [place] [address] RIA, SELENE Unavailable [address] [phone] [place] [address] R Unavailable Unavailable Unavailable BETTINA CANTOR Unavailable [address] [phone] [place] [address] RIA, SELENE Unavailable [address] [phone] [place] [address] R Unavailable Unavailable Unavailable BRENNA CANTORLE Unavailable [address] [phone] [place] [address] RIA, SELENE Unavailable [address] [phone] [place] [address] R Unavailable Unavailable Unavailable BRENNA CANTORLE Unavailable [address] [phone] [place] [address] RIA, SELENE Unavailable [address] [phone] [place] [address] R Unavailable Unavailable Unavailable SAKSHI, BETTINA Unavailable [address] [phone] [place] [address] RIA, SELENE Unavailable [address] + [place] [address] R Unavailable Unavailable Unavailable SAKSHI, BETTINA Unavailable [address] [phone] [place] [address] RIA, SELENE Unavailable [address] + [place] [address] R Unavailable Unavailable Unavailable SAKSHI, BETTINA Unavailable [address] [phone] [place] [address] RIA, SELENE Unavailable [address] + [place] [address] R Unavailable Unavailable Unavailable SAKSHI, BETTINA Unavailable [address] [phone] [place] [address] RIA, SELENE Unavailable [address] + [place] [address] R Unavailable Unavailable Unavailable SAKSHI, BETTINA Unavailable [address] [phone] [place] [address] RIA, SELENE Unavailable [address] + [place] [address] R Unavailable Unavailable Unavailable SAKSHI, BETTINA Unavailable [address] [phone] [place] [address] RIA, SELENE Unavailable [address] + [place] [address] R Unavailable Unavailable Unavailable SAKSHI, BETTINA Unavailable [address] [phone] [place] [address] RIA, SELENE Unavailable [address] [phone] [place] [address] R Unavailable Unavailable Unavailable SAKSHI, BETTINA Unavailable [address] [phone] [place] [address] Care Team Providers Name Role Phone Jose Enrique Prince Attending Unavailable White, Jennifer Referring Unavailable SureshFanil Attending Unavailable White, Jennifer Referring Unavailable Ranney, Christopher Primary Care Unavailable White, Jennifer Admitting Unavailable Fabienne Honeycutt Attending Unavailable White, Jennifer Attending Unavailable Ranney, Christopher Attending Unavailable Ranney, Christopher Referring Unavailable Ranney, Christopher Primary Care Unavailable Derek Santos Consulting Unavailable Ranney, Christopher Attending Unavailable Ranney, Christopher Referring Unavailable Ranney, Christopher Primary Care Unavailable Ranney, Christopher Primary Care Unavailable Akbar Newton Attending Unavailable Ranney, Christopher Attending Unavailable Ranney, Christopher Primary Care Unavailable Zulma Deleon Attending Unavailable Zulma Deleon Referring Unavailable Ranney, Christopher Primary Care Unavailable Samuel Bhagat Attending Unavailable Ranney, Christopher Attending Unavailable Ranney, Christopher Referring Unavailable Ranney, Christopher Primary Care Unavailable Ranney, Christopher Attending Unavailable Ranney, Christopher Primary Care Unavailable Ranney, Christopher Referring Unavailable Ranney, Christopher Attending Unavailable Ranney, Christopher Primary Care Unavailable Ranney, Christopher Attending Unavailable Ranney, Christopher Referring Unavailable Ranney, Christopher Primary Care Unavailable Ranney, Christopher Attending Unavailable Ranney, Christopher Primary Care Unavailable Ranney, Christopher Attending Unavailable Ranney, Christopher Primary Care Unavailable Ranney, Christopher Primary Care Unavailable Agyepong, Nilay Admitting Unavailable White, Jennifer Attending Unavailable Steve, Jeannette S. Consulting Unavailable Edy Amezcua Attending Unavailable Ranney, Christopher Primary Care Unavailable Agyepong, Nilay Admitting Unavailable Ranney, Christopher Primary Care Unavailable Steve, Jeannette S. Consulting Unavailable White, Jennifer Attending Unavailable White, Jennifer Consulting Unavailable Ranney, Christopher Attending Unavailable Ranney, Christopher Referring Unavailable Ranney, Christopher Primary Care Unavailable Ranney, Christopher Attending Unavailable Ranney, Christopher Primary Care Unavailable Ranney, Christopher Primary Care Unavailable White, Jennifer Admitting Unavailable Natan Giraldo D.O. Consulting Unavailable Junior Akers Attending Unavailable Steve, Jeannette S. Consulting Unavailable White, Jennifer Admitting Unavailable White, Jennifer Attending Unavailable [facility] Care Unavailable Catrachito Blood.O. Consulting Unavailable White, Jennifer Consulting Unavailable White, Jennifer Admitting Unavailable Catrachito Blood.O. Attending Unavailable [facility] Care Unavailable [place] Blood.O. Consulting Unavailable Steve, Jeannette S. Consulting Unavailable Sementi, Vandana Consulting Unavailable White, Jennifer Admitting Unavailable Sementi, Vandana Attending Unavailable [facility] Care Unavailable Catrach[place] Blood.O. Consulting Unavailable Steve, Jeannette S. Consulting Unavailable Sementi, Vandana Consulting Unavailable White, Jennifer Admitting Unavailable Sementi, Vandana Attending Unavailable [facility] Care Unavailable Catrachito Blood.O. Consulting Unavailable Steve, Jeannette S. Consulting Unavailable Sementi, Vandana Consulting Unavailable White, Jennifer Admitting Unavailable Temo Horta Attending Unavailable [facility] Care Unavailable [place] Blood.O. Consulting Unavailable Steve, Jeannette S. Consulting Unavailable Sementi, Vandana Consulting Unavailable White, Jennifer Admitting Unavailable [facility] Care Unavailable [place] Blood.O. Consulting Unavailable Koram, Fabienne Sridevi Attending Unavailable Steve, Jeannette S. Consulting Unavailable Koram, Fabienne Sridevi Consulting Unavailable White, Jennifer Admitting Unavailable Temo Horta Attending Unavailable [facility] Care Unavailable Catrachito Blood.O. Consulting Unavailable Steve, Jeannette S. Consulting Unavailable Koram, Fabienne Sridevi Consulting Unavailable White, Jennifer Admitting Unavailable [facility] Unavailable Catrachito Blood.O. Consulting Unavailable Junior Akers Attending Unavailable Steve, Jeannette S. Consulting Unavailable Brianneky Junior Consulting Unavailable [facility] Attending Unavailable [facility] Referring Unavailable [facility] Unavailable PROBLEMS PROBLEMS DATE TYPE CONDITION / CODE ATTENDING STATUS SOURCE Unknown R94.31 - Abnormal Suresh, Jose Enrique Active [place] electrocardiogram Community [ECG] [EKG] / Hospital R94.31(ICD-10) Repository Unknown I10 - Essential Suresh, [place] Active [place] [facility] (primary) hypertension Community / I10(ICD-10) Hospital Repository Unknown I48.0 - Paroxysmal Suresh, [place] Active [place] [facility] atrial fibrillation / Community I48.0(ICD-10) Hospital Repository Unknown A41.9 - Sepsis, Junior Akers Active [place] [facility] unspecified organism / Community A41.9(ICD-10) Hospital Repository Unknown M06.09 - Rheumatoid Zulma Deleon Active [place] [facility] arthritis without Community rheumatoid factor, Hospital multiple sites / Repository M06.09(ICD-10) Unknown Z79.899 - Other long Zulma Deleon Active [place] [facility] term (current) drug Community therapy / Hospital Z79.899(ICD-10) Repository Unknown M79.7 - Fibromyalgia / Zulma Deleon Active [place] [facility] M79.7(ICD-10) [facility] Hospital Repository Unknown M15.9 - Zulma Deleon Active [place] [facility] Polyosteoarthritis, Community unspecified / Hospital M15.9(ICD-10) Repository Unknown M18.0 - Bilateral Zulma Deleon Active [place] [facility] primary osteoarthritis [facility] Hospital carpometacarpal joints Repository / M18.0(ICD-10) Unknown K21.0 - Zulma Deleon Active [place] [facility] Gastro-esophageal Community reflux disease with Hospital esophagitis / Repository K21.0(ICD-10) Unknown D68.0 - Von Zulma Deleon Active [place] [facility] Willebrand's disease / Community D68.0(ICD-10) Hospital Repository Unknown J30.89 - Other Zulma Deleon Active [place] [facility] allergic rhinitis / Community J30.89(ICD-10) Hospital Repository Unknown 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 / Community G47.419(ICD-10) Hospital Repository Unknown G25.81 - Restless legs Zulma Deleon Active [place] [facility] syndrome / Community G25.81(ICD-10) Hospital Repository Unknown J10.1 - Influenza due Ranney, Active [place] [facility] to other identified [facility] influenza virus with Hospital other respiratory Repository manifestations / J10.1(ICD-10) Unknown J09.X2 - Influenza due Fabienne Honeycutt Active [place] [facility] to identified novel Community influenza A virus with Hospital other respiratory Repository manifestations / J09.X2(ICD-10) PROCEDURES PROCEDURES No Procedure Records FoundRESULTS RESULTS CONSULTATION Observed: 07/21/2018 Status: F Source: [place] [facility] Medical Records Department [address] [place] [address] Consultation 06/27/18 1246 MR#: [id number] Acct: [id number] Name: AICHA ROLLINS Rep #: [id number] : 1950 67 From: Jeannette Wilson MD PCP: Lul Patel MD Status: DIS IN Y Location: [place] [id number] Problem List (1) Seizure Status: Acute Reason for Consult Date of Consultation: 06/27/18 Reason for Consultation: Seizure History of Present Illness: The patient is a 67 year old CF with PMH HTN, HLD, H/O seizures, H/O PRES (when admitted in February 2018 with breakthrough seizures), narcolepsy, RA, anxiety/depression, Hepatitis C, Von Willebrand disease and osteoporosis admitted with break through seizures. patient is drowsy, history could not be obtained from patient, is obtained from patient's and medical records. per , patient initially had seizures in 2015, had been on Keppra and seizures were well controlled, later felt the Keppra is making her lethargic and patient stopped taking Keppra around March 2018 on her own. Then yesterday (06/26/18) per she was sluggish the whole day, later had episode where she had staring episode, eyes rolled back, head turned to one side, made grunting noise, started having GTCs, the episode lasted for few minutes, later was in post ictal state, also had tongue bite, had about 3 such events one after another and hence was brought to the ED where she had another witnessed seizures, was loaded with Dilantin and treated with Ativan. Per she uses a cane to ambulate, denies any frequent falls and does not drive. Patient continues to be drowsy but is arousable and denies any VALVERDE at present. CT head on admission was unremarkable, EEG did not show any epileptiform discharges. On admission she was found to have acute hypoxic respiratory failure, aspiration PNA and paroxysmal AFib which later reverted back to sinus rhythm per documentation. Past Medical History Past Medical History (Chronic Problems): Chronic Problems Anxiety and depression (Chronic) Narcolepsy (Chronic) Hep C (Chronic) Von Willebrand disease (Chronic) Gastroesophageal reflux disease (Chronic) Rheumatoid arthritis (Chronic) Allergies codeine Allergy (Verified 06/26/18 18:49) Hives morphine Allergy (Verified 06/26/18 18:49) Hives Opioids - Morphine Analogues Allergy (Verified 06/26/18 18:49) Hives amicar Adverse Reaction (Uncoded 06/26/18 18:49) Other sassafrass Adverse Reaction (Uncoded 06/26/18 18:49) Nausea/Vom/Diarrhea Home Medications: Ambulatory Orders Medication Instructions Recorded Surgical History: - - L Breast biopsy, D AND C, Cholecystectomy, Appendectomy. 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 Paternal History Items: - - No marked paternal family history including HD, DM, CA. Review of Systems Constitutional: Reports: - - ROS could not be obtained as patient continues to be drowsy Patient Problems: Active and Suspected Problems Cardiac enzymes elevated (Acute) PAF (paroxysmal atrial fibrillation) (Acute) Pneumonia (Acute) Sepsis (Acute) Acute respiratory failure with hypoxia (Acute) - Physical Exam General: - - drowsy, arousable, follows VC intermittently HEENT: Normocephalic Neck: Supple Lungs: Diminished Cardiovascular: Normal S1, Normal S2 Abdomen: Bowel Sounds Present Extremities: No cyanosis Neurological: - - drowsy, pupils BERL, follows VC intermittently, limited Neurology examination, no FD, moves all 4 extremities, withdraws to painful stimuli, cerebellar/sensory/gait could not be assessed, Reflexes B/L B/S/T/K/A, no NR Vital Signs Temp Pulse Resp BP Pulse Ox 100.8 F H 75 23 H 131/60 H 96 06/27/18 12:00 06/27/18 12:00 06/27/18 12:00 06/27/18 12:00 06/27/18 12:00 Oxygen Flow Rate (L/min) 3 Oxygen Delivery Method Nasal Cannula Weight: 55.6 kg Body Mass Index (BMI) 20.4 Finger Stick Blood Glucose 117 Intake and Output for Last 24 Hours Intake Total 1022 / 1022 Output Total 1000 / 1000 200 / 200 Balance -1000 / -1000 822 / 822 Microbiology Past 72 Hours 06/27/18 06:00 Respiratory Panel (PCR) - Final Mucosa - Nasopharyngeal Rhinovirus Laboratory Tests Past 24 Hrs WBC RBC Hgb Hct Assessment/Plan All Active Problems Seizure (Acute) Cardiac enzymes elevated (Acute) PAF (paroxysmal atrial fibrillation) (Acute) Pneumonia (Acute) Sepsis (Acute) Acute respiratory failure with hypoxia (Acute) Influenza A (Acute) Mental status change (Acute) The patient is a 67 year old CF with PMH HTN, HLD, H/O seizures, H/O PRES (when admitted in February 2018 with breakthrough seizures), narcolepsy, RA, anxiety/depression, Hepatitis C, Von Willebrand disease and osteoporosis admitted with break through seizures. patient is drowsy, history could not be obtained from patient, is obtained from patient's and medical records. per , patient initially had seizures in 2015, had been on Keppra and seizures were well controlled, later felt the Keppra is making her lethargic and patient stopped taking Keppra around March 2018 on her own. Then yesterday (06/26/18) per she was sluggish the whole day, later had episode where she had staring episode, eyes rolled back, head turned to one side, made grunting noise, started having GTCs, the episode lasted for few minutes, later was in post ictal state, also had tongue bite, had about 3 such events one after another and hence was brought to the ED where she had another witnessed seizures, was loaded with Dilantin and treated with Ativan. Per she uses a cane to ambulate, denies any frequent falls and does not drive. Patient continues to be drowsy but is arousable and denies any VALVERDE at present. CT head on admission was unremarkable, EEG did not show any epileptiform discharges. On admission she was found to have acute hypoxic respiratory failure, aspiration PNA and paroxysmal AFib which later reverted back to sinus rhythm per documentation Impression Break through seizure- medication non compliance Metabolic encephalopathy Plan -Vimpat 50 mg PO BID for 5 days then increase to 100 mg PO BID. -Stop Dilantin, patient has history of hepatitis C and osteoporosis -Check MRI brain w/o contrast -EEG- no epileptiform seizures -Labs reviewed -Compliance with medication discussed with the patient. -Seizure precautions -patient does not drive -Further management of Afib per primary team/ICU and Cardiology -Further medical management per primary team/ICU team -Fall precautions -Follow up with Neurology in 6 weeks as outpatient. -Please call with questions if any -Thank you for allowing us to participate in patient's care and management Code Visit Inpatient E AND M: [id number] Init Hosp L3 07/21/18 1305 <Electronically signed by Jeannette Wilson MD> Date Jeannette Wilson MD Cosigner Signature (if applicable): Date CC: Renetta Wilson MD; Lul Patel MD; Natan Giraldo D.O. Signed ELECTROENCEPHALOGRAM Observed: 07/21/2018 Status: F Source: [place] 1:05 PM [facility] Pulmonary Services/Neurology [facility] [place] [address] MR#: [id number] Acct: [id number] Name: AICHA ROLLINS Rep #: [id number] : 1950 67 From: Jeannette Wilson MD Referring Dr: Junior Akers DO Status: DIS IN Ordering Dr: Date: Location: [facility] [id number] Sex: F C - Electroencephalogram Date of service 06/27/2018 History EEG is being done in this 67 yr F to rule out seizures EEG Description: This is an 18 channel EEG with 10-20 lead placement system. Bipolar montages, Referential and Circumferential montages were reviewed. Photic stimulation was performed but hyperventilation not performed. The posterior dominant rhythm was absent. Photo stimulation did not elicit any driving response or abnormal photoparoxysmal response, Hyperventilation was not performed due to patient's current clinical condition and inability to co-operate. Drowsiness was identified. There is an abnormal background slowing noted in the 3-4 Hz range along with intermittent faster frequency beta waves noted during the entire record. There was no epileptiform discharges or electrographic seizures noted during this recording. EEG Interpretation This is an abnormal EEG due to moderate to severe background slowing which might be seen with generalized cerebral dysfunction like metabolic/toxic encephalopathy. While intermittent faster frequency wave forms may also be secondary to medication effect. Clinical correlation is advised. There is no epileptiform discharges or electrographic seizures noted during the record. 07/21/18 1305 <Electronically signed by Jeannette Wilson MD> Date Jeannette Wilson MD CC: Renetta Wilson MD; Lul Patel MD; Junior Akers DO Date Dictated: 06/27/181126 Date Transcribed: 06/27/181126 Chief Knowledge Officer: CRISTO Signed DISCHARGE SUMMARY Observed: 07/06/2018 Status: F Source: [place] 1:57 PM [facility] REPOSITORY [facility] Medical Records Department [address] [place] [id number] Discharge Summary 06/30/18 1103 MR#: [id number] Acct: [id number] Name: AICHA ROLLINS Rep #: [id number] : 1950 67 From: Susan JACOBSON PCP: Lul Patel MD Status: DIS IN Y [id number] ADDENDUM by Junior Akers DO on 07/06/18 at 1357 Code Visit Please add additional diagnosis: Acute sepsis secondary to aspiration pneumonia and Rhinovirus upper respiratory tract infection 07/06/18 1357 <Electronically signed by Junior Akers DO> Date Junior Akers DO cc: KAVON Chaudhry; Lul Patel MD; Junior Akers DO * Signed ADDENDUM by Junior Akers DO on 07/02/18 at 1429 Code Visit Patient was seen and examined on 06/30/18 independently of Susan Chaudhry, she is not on supplemental oxygen at this time, she had questions about her seizure medications, patient did not appear to understand that she was not going to be taking Keppra when she is discharged today. I went over this with her after I found this out and she seemed understand at that point. Physical exam: On examination she appeared in good health and spirits. Vital signs as documented. Skin warm and dry and without overt rashes. Neck without JVD. Lungs clear. Heart exam notable for regular rhythm, normal sounds and absence of murmurs, rubs or gallops. Abdomen unremarkable and without evidence of organomegaly, masses, or abdominal aortic enlargement. Extremities nonedematous. Neuro: Cranial nerves II through XII are grossly intact, no focal motor deficits were noted, sensation to pinprick and light touch are intact. Psych: Patient is alert and oriented x3, she does not appear to be anxious or depressed. Patient appears stable for discharge at this point. I have reviewed Susan Isidoro's discharge summary and medical plan of care and endorse it. Inpatient E AND M: [id number] Disch Hosp 07/02/18 1429 <Electronically signed by Junior Akers DO> Date Junior Akers DO cc: KAVON Chaudhry; Lul Patel MD; Junior Akers DO * Signed Discharge Date and Diagnosis Date of Admission: 06/26/18 Date of Discharge: 06/30/18 - Primary Discharge Diagnosis Active and Suspected Problems 1. Breakthrough seizure with history of seizure disorder and noncompliance with antiepileptic medications 2. Acute hypoxic respiratory failure secondary to acute rhinovirus and suspected aspiration pneumonia 3. Metabolic encephalopathy secondary to #2, resolved 4. Brief episode of paroxysmal A. fib 5. Elevated troponin, ACS ruled out 6. History of rheumatoid arthritis 7. Hypertension 8. Von Willebrand disease 9. Chronic hepatitis C 10. Anxiety/depression 11. Osteoporosis - Secondary Discharge Diagnosis Chronic Problems Anxiety and depression (Chronic) Narcolepsy (Chronic) Hep C (Chronic) Von Willebrand disease (Chronic) Gastroesophageal reflux disease (Chronic) Rheumatoid arthritis (Chronic) Hospital Course and Treatment Imaging Results: Diagnostic Data Brain CT 06/26/18 18:52 IMPRESSION: Minor periventricular white matter ischemic changes MRI would be helpful for further evaluation if clinically warranted Electronically Signed: Akbar Jo MD at 21:02 EST , Service support , Chest X-Ray 06/26/18 18:56 IMPRESSION: Bilateral infiltrates worrisome for pneumonia, predominating in the upper lobes. Electronically Signed: Steve Mars MD at 19:31 EST , Service support , Brain MRI 06/27/18 13:25 IMPRESSION: Mild periventricular white matter ischemic changes without evidence for acute infarct. No evidence for acute infarct Slight interval improvement since previous study Electronically Signed: Akbar Jo MD at 16:05 EST , Service support , Dr. Wilson- Neurology Dr. Giraldo/Dr. Horta- Pulmonary Medicine/Railroad Accountant Operations: None Procedures: 2-D Echocardiogram, Electroencephalogram Summary of Care Provided: The patient is a 67 year old F admitted 06/26/2018 due to seizures, unresponsiveness, cough. 1. Breakthrough seizure with history of seizure disorder and noncompliance with antiepileptic medications-neurology consulted. Patient started on Vimpat. She will continue Vimpat 50 mg twice daily through followed by Vimpat 100 mg twice daily thereafter. EEG with no evidence of seizure activity, background slowing. Seizure precautions. MRI of brain showed no evidence of acute infarct. Follow-up with neurology in 6 weeks. No driving until cleared by neurology. Follow-up with primary care physician in 1 week. 2. Acute hypoxic respiratory failure secondary to acute rhinovirus and a suspected aspiration pneumonia-blood culture with no growth in 48 hours. Urine negative for strep and Legionella. Afebrile. Stable on room air. No leukocytosis. Further antibiotics discontinued. 3. Metabolic encephalopathy secondary to #2-resolved. 4. New onset paroxysmal atrial fibrillation-patient with atrial fibrillation on admission. Has remained sinus rhythm. Not on anticoagulation or rate control at this time. Echocardiogram showed an EF of 55%, stage I diastolic dysfunction, structurally normal valves. 5. Elevated troponin-suspect secondary to A. fib with RVR and admission. EKG without ST-T changes. Patient denies chest pain. Trop did not trend. 6. History of rheumatoid arthritis-not on regimen. 7. Hypertension-continue home lisinopril regimen. 8. Von Willebrand disease 9. Chronic hepatitis C 10. Anxiety/depression-not on home regimen. 11. Osteoporosis-continue Fosamax regimen. General: Alert, Oriented x3, Cooperative, No apparent distress HEENT: Atraumatic, PERRLA, EOMI, Normocephalic Oral: Moist Mucosa Neck: Supple, No JVD, Negative Carotid Bruits Lungs: Clear to auscultation, Normal air movement Cardiovascular: Regular rate, Regular Rhythm, Normal S1, Normal S2, No murmurs Abdomen: Bowel Sounds Present, Soft, Non Tender, Non-Distended Extremities: No clubbing, No cyanosis, No edema, Capillary Refill Less than 3 Seconds Skin: No rashes, No breakdown Musculoskeletal: No Tenderness to Palpation of Joints or Extremities Neurological: Cranial nerves II-XII grossly intact Psych/Mental Status: Normal Affect, Appropriate Patient seen and examined prior to discharge. Physical assessment as noted above. Patient is stable for discharge home with a follow-up recommendations as noted above per This patient was seen by KAVON Browning under the supervision of Dr. Akers. - Physical Exam Vital Signs Temp Pulse Resp BP Pulse Ox 98.9 F 81 18 136/72 H 99 06/30/18 10:15 06/30/18 10:15 06/30/18 10:15 06/30/18 10:15 06/30/18 10:15 Oxygen Flow Rate (L/min) 12 Oxygen Delivery Method Room Air Weight: 126 lb 1.671 oz Body Mass Index (BMI) 20.4 Finger Stick Blood Glucose 117 Intake and Output for Last 24 Hours Intake Total 4514 / 4514 3704.9 / 3704.9 620 / 620 Output Total 4550 / 4550 Balance -36 / -36 3704.9 / 3704.9 620 / 620 Microbiology Past 72 Hours 06/26/18 20:00 Blood Culture - Preliminary Blood Culture (Wb) - Anticubital Left No growth in 48 hours. 06/26/18 20:02 Blood Culture - Preliminary Laboratory Tests Past 24 Hrs WBC 9.1 RBC 3.72 L Hgb 10.1 L Hct 30.8 L Discharge Diet: Low fat/ Low Cholesterol Discharge Activity: May Not Drive - Until cleared by neurology Call your doctor if you observe: Shortness of breath, Dizziness, Chest pain, Increased palpitations (irregular heartbeat) Home Medications: Medications to take at Discharge Lisinopril [Zestril] 10 mg PO DAILY 05/18/16 Omeprazole [Prilosec] 40 mg PO BID 05/18/16 Alendronate Sodium [Fosamax] 10 mg PO DAILY@0700 06/26/18 Potassium Chloride 20 meq PO BID 06/26/18 Lacosamide [Vimpat] 50 mg PO BID #90 tablet 06/30/18 Meloxicam [Mobic] 7.5 mg PO DAILY #30 tablet 06/30/18 Following Prescrptions Were Given to Patient: Meloxicam [Mobic] 7.5 mg PO DAILY #30 tablet Lacosamide [Vimpat] 50 mg PO BID #90 tablet Primary Care Physician: Robetr Patel MD [Primary Care Provider] - Please follow up with your Primary Care Physician in: 1 Week Please Follow Up With: Jeannette Wilson MD When: 6 Weeks Disposition: Home Minutes spent on discharge:: 35 Patient Condition:: Stable Medical Necessity - Tobacco Use Smoking Status: Former smoker Meaningful Use Info Meaningful Use Diagnoses (Choose all that apply): None applicable 06/30/18 1111 <Electronically signed by Susan JACOBSON> Date Susan JACOBSON 07/02/18 1418<Electronically signed by Junior ESTEBAN Cosigner Signature (if applicable): Date Junior Akers DO CC: KAVON Chaudhry; Lul Patel MD; Junior Akers DO Signed BASIC METABOLIC Collected: 07/06/2018 Status: F Source: JHONY PROFILE (BMP) 12:43 PM [facility] REPOSITORY TYPE CODE TESTS RESULT OUT OF RANGE REFERENCE UNITS LAB L501.0100 74-106 mg/dL Normal GLU 95 Result Comment: Please note revised GLUCOSE reference range effective 2017. LAB L501.1000 7-18 mg/dL Low BUN 6 LAB L501.1100 0.55-1.02 mg/dL Normal CREAT,SERUM 0.80 Result Comment: The validity of the calculated GFR AND GFRAA in patients over 70 years has not been determined. Clinical correlation is essential. LAB L501.1110 >60 mL/min Normal EST GFR 77 Result Comment: Non- GFR Calc LAB L501.1115 >60 mL/min Normal EST GFR - AA 93 Result Comment: GFR Calc LAB L501.1300 10-20 RATIO Low BUN/CRE 7.5 LAB L501.2200 8.5-10.1 mg/dL Normal CA 9.3 LAB L501.5300 136-145 mmol/L Normal NA 143 LAB L501.5600 3.5-5.1 mmol/L Normal K 3.6 LAB L501.5900 98-107 mmol/L Normal CL 105 LAB L501.6100 21.0-32.0 mmol/L Normal CO2 27.0 LAB L501.6200 5-15 Normal GAP 11 Performed By: #### L500.2500 #### [facility] [address] [place], [place], [address] 12 LEAD ELECTROCARDIOGRAM Observed: 07/03/2018 Status: F Source: JHONY 9:25 AM [facility] REPOSITORY [facility] Cardiovascular Services [address] [place] [address] 12 Lead EKG 06/27/18 0603 MR#: [id number] Acct: [id number] Name: AICHA ROLLINS Rep #: [id number] : 1950 67 From: Jose Enrique Prince MD Attending Dr: Junior Akers DO Status: DIS IN Ordering Dr: Jennifer Coleman Date: 06/27/18 Location: [facility] Sex: F C Admitted: 06/26/18 Test Reason : AM EKG Blood Pressure : / mmHG Vent. Rate : 079 BPM Atrial Rate : 079 BPM P-R Int : 142 ms QRS Dur : 086 ms QT Int : 412 ms P-R-T Axes : 070 -51 074 degrees QTc Int : 472 ms Normal sinus rhythm Left axis deviation Abnormal ECG When compared with ECG of 17-FEB-2018 03:22, Nonspecific T wave abnormality now evident in Lateral leads Confirmed by JOSE ENRIQUE PRINCE MD ([id number]), magazine editor JACKIE NORIEGA ([id number]) on 06/30/2018 4:13:06 PM Referred By: LIZETT Confirmed By:JOSE ENRIQUE PRINCE MD 06/30/18 1613 Date Jose Enrique Prince MD CC: Jennifer Coleman; Lul Patel MD; Junior Akers DO Signed 12 LEAD ELECTROCARDIOGRAM Observed: 07/03/2018 Status: F Source: [place] 9:22 AM [facility] REPOSITORY [facility] Cardiovascular Services [address] [place] [address] 12 Lead EKG 06/26/18 2154 MR#: [id number] Acct: [id number] Name: AICHA ROLLINS Rep #: [id number] : 1950 67 From: Jose Enrique Prince MD Attending Dr: Junior Akers DO Status: DIS IN Ordering Dr: Rashmi Sanz MD Date: 06/26/18 Location: [facility] Sex: F C Admitted: 06/26/18 Test Reason : REPEAT Blood Pressure : / mmHG Vent. Rate : 094 BPM Atrial Rate : 094 BPM P-R Int : 136 ms QRS Dur : 076 ms QT Int : 356 ms P-R-T Axes : 077 -51 057 degrees QTc Int : 445 ms Normal sinus rhythm Left axis deviation Nonspecific ST abnormality Abnormal ECG Confirmed by JOSE ENRIQUE PRINCE MD ([id number]), magazine editor JACKIE NORIEGA ([id number]) on 06/29/2018 10:56:25 AM Referred By: LIZETT Confirmed By:JOSE ENRIQUE PRINCE MD 06/29/181055 Date Jose Enrique Prince MD CC: Rashmi Sanz MD; Lul Patel MD; Junior Akers DO Signed 12 LEAD ELECTROCARDIOGRAM Observed: 07/03/2018 Status: F Source: [place] 9:22 AM [facility] REPOSITORY [facility] Cardiovascular Services [address] [place] [address] 12 Lead EKG 06/26/18 1857 MR#: [id number] Acct: [id number] Name: AICHA ROLLINS Rep #: [id number] : 1950 67 From: Jose Enrique Prince MD Attending Dr: Junior Akers DO Status: DIS IN Ordering Dr: Jennifer Coleman Date: 06/27/18 Location: [facility] Sex: F C Admitted: 06/26/18 Test Reason : SEIZURE,UNRESPONSIVE Blood Pressure : / mmHG Vent. Rate : 115 BPM Atrial Rate : 112 BPM P-R Int : 000 ms QRS Dur : 088 ms QT Int : 356 ms P-R-T Axes : 000 -25 067 degrees QTc Int : 492 ms Atrial fibrillation with rapid ventricular response Nonspecific ST and T wave abnormality Abnormal ECG Confirmed by JOSE ENRIQUE PRINCE MD ([id number]), magazine editor JACKIE NORIEGA ([id number]) on 06/29/2018 10:56:43 AM Referred By: CELESTINE Confirmed By:JOSE ENRIQUE PRINCE MD 06/29/181055 Date Jose Enrique Prince MD CC: Jennifer Coleman; Lul Patel MD; Junior Akers DO Signed DISCHARGE INSTRUCTION Observed: 06/30/2018 Status: F Source: JHONY 11:03 AM [facility] REPOSITORY [facility] Medical Records Department [address] [place] [address] Instructions for Home/Discharge Instructions 06/30/18 1100 MR#: [id number] Acct: [id number] Name: AICHA ROLLINS Rep #: [id number] : 1950 67 From: Susan Chaudhry [employer]ING J[employer] SETTER-C PCP: Lul Patel MD Status: ADM IN - Discharge Diagnoses Current Active Problems: Current Active and Chronic Problems Cardiac enzymes elevated (Acute) PAF (paroxysmal atrial fibrillation) (Acute) Pneumonia (Acute) Sepsis (Acute) Acute respiratory failure with hypoxia (Acute) You will use the following diet at home:: Cardiac Discharge Activity: May Not Drive - Until cleared by neurology Call your doctor if you observe: Shortness of breath, Dizziness, Chest pain, Increased palpitations (irregular heartbeat) Allergies/Adverse Reactions: Allergies codeine Allergy (Verified 06/26/18 18:49) Hives morphine Allergy (Verified 06/26/18 18:49) Hives Opioids - Morphine Analogues Allergy (Verified 06/26/18 18:49) Hives anticoagulants Allergy (Uncoded 06/28/18 13:49) Bleeding amicar Adverse Reaction (Uncoded 06/26/18 18:49) Other sassafrass Adverse Reaction (Uncoded 06/26/18 18:49) Nausea/Vom/Diarrhea Medications to take at Discharge Lisinopril [Zestril] 10 mg PO DAILY 05/18/16 Omeprazole [Prilosec] 40 mg PO BID 05/18/16 Alendronate Sodium [Fosamax] 10 mg PO DAILY@0700 06/26/18 Potassium Chloride 20 meq PO BID 06/26/18 Lacosamide [Vimpat] 50 mg PO BID #90 tablet 06/30/18 Meloxicam [Mobic] 7.5 mg PO DAILY #30 tablet 06/30/18 The following prescriptions were given: Meloxicam [Mobic] 7.5 mg PO DAILY #30 tablet Lacosamide [Vimpat] 50 mg PO BID #90 tablet Primary Care Physician: Robert Patel MD [Primary Care Provider] - Please follow up with your Primary Care Physician in: 1 Week Test Results: Test results from this visit will be discussed in further detail at your follow-up appointment, if applicable. Please Follow Up With: Jeannette Wilson MD When: 6 Weeks Proposed Discharge Date: 06/30/18 06/30/18 1103 <Electronically signed by Susan JACOBSON> Date Susan JACOBSON CC: Renetta Wilson MD; Lul Patel MD; Natan Giraldo D.O. CBC-COMPLETE BLOOD CNT Collected: 06/30/2018 Status: F Source: JHONY NO DIFF 6:05 AM [facility] REPOSITORY TYPE CODE TESTS RESULT OUT OF RANGE REFERENCE UNITS LAB L100.1000 4.4-11.0 K/mm3 Normal WBC 9.1 LAB L100.1200 4.2-5.4 M/mm3 Low RBC 3.72 LAB L100.1300 12.0-15.0 g/dl Low HGB 10.1 LAB L100.1400 37-47 % Low HCT 30.8 LAB L100.1500 81-99 fL Normal MCV 82.8 LAB L100.1600 27.0-32.0 pg Normal MCH 27.2 LAB L100.1700 32-36 g/gl Normal MCHC 32.8 LAB L100.1810 11.6-14.6 % High RDW CV 15.1 LAB L100.1820 35.1-43.9 fl High RDW SD 44.9 LAB L100.1900 150-450 K/mm3 Normal PLT 246 LAB L100.2000 6.2-12.0 fl High MPV 12.8 Performed By: #### L100.0500 #### [facility] [address] [place], [place], [address] BASIC METABOLIC Collected: 06/30/2018 Status: F Source: JH[place] PROFILE (BMP) 6:05 AM [facility] REPOSITORY TYPE CODE TESTS RESULT OUT OF RANGE REFERENCE UNITS LAB L501.0100 74-106 mg/dL Normal GLU 87 Result Comment: Please note revised GLUCOSE reference range effective 2017. LAB L501.1000 7-18 mg/dL Low BUN 6 LAB L501.1100 0.55-1.02 mg/dL Normal CREAT,SERUM 0.68 Result Comment: The validity of the calculated GFR AND GFRAA in patients over 70 years has not been determined. Clinical correlation is essential. LAB L501.1110 >60 mL/min Normal EST GFR 92 Result Comment: Non- GFR Calc LAB L501.1115 >60 mL/min Normal EST GFR - AA 111 Result Comment: GFR Calc LAB L501.1255 ml/min Normal Estimated CRCL 49.80 LAB L501.1300 10-20 RATIO Low BUN/CRE 8.8 LAB L501.2200 8.5-10 mg/dL Normal .1 CA 9.1 LAB L501.5300 136-14 mmol/L Normal 5 NA 144 LAB L501.5600 3.5-5. mmol/L Normal 1 K 3.7 LAB L501.5900 98-107 mmol/L Normal CL 107 LAB L501.6100 21.0-3 mmol/L Normal 2.0 CO2 25.0 LAB L501.6200 5-15 Normal GAP 12 Performed By: #### L500.2500 #### [facility] [address] [place], [address] CBC W/DIFF, AUTOMATED Collected: 06/29/2018 Status: F Source: [place] 6:30 AM [facility] REPOSITORY TYPE CODE TESTS RESULT OUT OF RANGE REFERENCE UNITS LAB L100.1000 4.4-11.0 K/mm3 Normal WBC 10.4 LAB L100.1200 4.2-5.4 M/mm3 Low RBC 3.82 LAB L100.1300 12.0-15.0 g/dl Low HGB 10.5 LAB L100.1400 37-47 % Low HCT 31.3 LAB L100.1500 81-99 fL Normal MCV 81.9 LAB L100.1600 27.0-32.0 pg Normal MCH 27.5 LAB L100.1700 32-36 g/gl Normal MCHC 33.5 LAB L100.1810 11.6-14.6 % High RDW CV 15.2 LAB L100.1820 35.1-43.9 fl High RDW SD 44.5 LAB L100.1900 150-450 K/mm3 Normal PLT 223 LAB L100.2000 6.2-12.0 fl Normal MPV 11.7 LAB L100.2100 47-70 % Normal NEUT% 65.8 LAB L100.2200 19-41 % Normal LY% 20.2 LAB L100.2300 0-10 % High MONO% 11.2 LAB L100.2400 0-5 % Normal EO% 2.2 LAB L100.2500 0-1 % Normal BASO% 0.4 LAB L100.2550 0.0-0.9 % Normal IM GRAN % 0.200 Result Comment: IG% - Immature Granulocytes (promyelocytes, myelocytes and metamyelocytes) > 1% indicates that a LEFT SHIFT is Present. LAB L100.2620 2.0-7.7 X10 3/uL Normal Absolute Neut 6.9 LAB L100.2720 0.83-4.51 X10 3/ul Normal Absolute Lymph 2.11 Performed By: #### L100.0100 #### [facility] [address] [place], [address] BASIC METABOLIC Collected: 06/29/2018 Status: F Source: [place] PROFILE (BMP) 6:30 AM [facility] REPOSITORY TYPE CODE TESTS RESULT OUT OF RANGE REFERENCE UNITS LAB L501.0100 74-106 mg/dL Normal GLU 100 Result Comment: Fasting Glucose result from 100 to 125 mg/dL suggests IMPAIRED HOMEOSTASIS per A.D.A. criteria. Please note revised GLUCOSE reference range effective 2017. LAB L501.1000 7-18 mg/dL Low BUN 4 LAB L501.1100 0.55-1.02 mg/dL Normal CREAT,SERUM 0.78 Result Comment: The validity of the calculated GFR AND GFRAA in patients over 70 years has not been determined. Clinical correlation is essential. LAB L501.1110 >60 mL/min Normal EST GFR 78 Result Comment: Non- GFR Calc LAB L501.1115 >60 mL/min Normal EST GFR - AA 95 Result Comment: GFR Calc LAB L501.1255 ml/min Normal Estimated CRCL 48.40 LAB L501.1300 10-20 RATIO Low BUN/CRE 5.1 LAB L501.2200 8.5-10 mg/dL Normal .1 CA 8.6 LAB L501.5300 136-14 mmol/L Normal 5 NA 143 LAB L501.5600 3.5-5. mmol/L Normal 1 K 4.5 LAB L501.5900 98-107 mmol/L High CL 109 LAB L501.6100 21.0-3 mmol/L Normal 2.0 CO2 24.0 LAB L501.6200 5-15 Normal GAP 10 Performed By: #### L500.2500, L501.2300 #### [facility] [address] [place], [address] PHOSPHORUS Collected: 06/29/2018 Status: F Source: JH[place] 6:30 AM [facility] REPOSITORY TYPE CODE TESTS RESULT OUT OF RANGE REFERENCE UNITS LAB L501.2300 2.5-4.9 mg/dL Low PHOS 2.0 Performed By: #### L500.2500, L501.2300 #### [facility] [address] [place], [address] POTASSIUM Collected: 06/28/2018 Status: F Source: JHONY 1:02 PM [facility] REPOSITORY TYPE CODE TESTS RESULT OUT OF RANGE REFERENCE UNITS LAB L501.5600 3.5-5.1 mmol/L Low K 2.9 Performed By: #### L501.5600 #### [facility] [address] [place], [address] CBC W/DIFF, AUTOMATED Collected: 06/28/2018 Status: F Source: JH[place]Y 6:43 AM [facility] REPOSITORY Order Comment: Order Date: 06/28/18 TYPE CODE TESTS RESULT OUT OF RANGE REFERENCE UNITS LAB L100.1000 4.4-11.0 K/mm3 Normal WBC 11.0 LAB L100.1200 4.2-5.4 M/mm3 Low RBC 3.85 LAB L100.1300 12.0-15.0 g/dl Low HGB 10.5 LAB L100.1400 37-47 % Low HCT 31.7 LAB L100.1500 81-99 fL Normal MCV 82.3 LAB L100.1600 27.0-32.0 pg Normal MCH 27.3 LAB L100.1700 32-36 g/gl Normal MCHC 33.1 LAB L100.1810 11.6-14.6 % High RDW CV 15.0 LAB L100.1820 35.1-43.9 fl High RDW SD 45.2 LAB L100.1900 150-450 K/mm3 Normal PLT 213 LAB L100.2000 6.2-12.0 fl Normal MPV 11.7 LAB L100.2100 47-70 % High NEUT% 78.9 LAB L100.2200 19-41 % Low LY% 11.4 LAB L100.2300 0-10 % Normal MONO% 8.6 LAB L100.2400 0-5 % Normal EO% 0.7 LAB L100.2500 0-1 % Normal BASO% 0.2 LAB L100.2550 0.0-0.9 % Normal IM GRAN % 0.200 Result Comment: IG% - Immature Granulocytes (promyelocytes, myelocytes and metamyelocytes) > 1% indicates that a LEFT SHIFT is Present. LAB L100.2620 2.0-7.7 X10 3/uL High Absolute Neut 8.7 LAB L100.2720 0.83-4.51 X10 3/ul Normal Absolute Lymph 1.25 Performed By: #### L100.0100 #### [facility] [address] [place], [place], [address] BASIC METABOLIC Collected: 06/28/2018 Status: F Source: [place] PROFILE (BMP) 6:43 AM [facility] REPOSITORY Order Comment: Order Date: 06/28/18 Order Date: 06/28/18 TYPE CODE TESTS RESULT OUT OF RANGE REFERENCE UNITS LAB L501.0100 74-106 mg/dL Normal GLU 76 Result Comment: Please note revised GLUCOSE reference range effective 2017. LAB L501.1000 7-18 mg/dL Low BUN 5 LAB L501.1100 0.55-1.02 mg/dL Normal CREAT,SERUM 0.58 Result Comment: The validity of the calculated GFR AND GFRAA in patients over 70 years has not been determined. Clinical correlation is essential. LAB L501.1110 >60 mL/min Normal EST GFR 110 Result Comment: Non- GFR Calc LAB L501.1115 >60 mL/min Normal EST GFR - AA 133 Result Comment: GFR Calc LAB L501.1255 ml/min Normal Estimated CRCL 48.75 LAB L501.1300 10-20 RATIO Low BUN/CRE 8.6 LAB L501.2200 8.5-10 mg/dL Low .1 CA 8.2 LAB L501.5300 136-14 mmol/L Normal 5 NA 142 LAB L501.5600 3.5-5. mmol/L Low 1 K 3.0 LAB L501.5900 98-107 mmol/L Normal CL 106 LAB L501.6100 21.0-3 mmol/L Normal 2.0 CO2 25.0 LAB L501.6200 5-15 Normal GAP 11 Performed By: #### L500.2500, L501.5200 #### [facility] [address] [place], [place], [id number] MAGNESIUM Collected: 06/28/2018 Status: F Source: [place] 6:43 AM [facility] REPOSITORY Order Comment: Order Date: 06/28/18 Order Date: 06/28/18 TYPE CODE TESTS RESULT OUT OF RANGE REFERENCE UNITS LAB L501.5200 1.6-2.6 mg/dL Normal MG 1.9 Performed By: #### L500.2500, L501.5200 #### [facility] [address] [facility] [place], [place], [id number] PHOSPHORUS Collected: 06/28/2018 Status: F Source: [place] 6:43 AM [facility] REPOSITORY Order Comment: Order Date: 06/28/18 TYPE CODE TESTS RESULT OUT OF RANGE REFERENCE UNITS LAB L501.2300 2.5-4.9 mg/dL Low PHOS 1.6 Performed By: #### L501.2300 #### [facility] [address] [place], [place], [id number] ERYTHROCYTE SED RATE Collected: 06/28/2018 Status: F Source: [place] 6:43 AM [facility] REPOSITORY Order Comment: OK TO ADD TO BLOOD FROM AM DRAW PER ANGELY PICKETT TYPE CODE TESTS RESULT OUT OF RANGE REFERENCE UNITS LAB L102.0000 0-30 mm/hr Normal SED RATE 12 Performed By: #### L101.9900 #### [facility] [address] [place], [address] CRP Collected: 06/28/2018 Status: F Source: [place] 6:43 AM [facility] REPOSITORY Order Comment: OK TO ADD TO BLOOD FROM AM DRAW PER ANGELY PICKETT TYPE CODE TESTS RESULT OUT OF RANGE REFERENCE UNITS LAB L501.6710 0.0-3.0 mg/L High 73.90 C-REACTIVE PROT Result Comment: C-Reactive Protein (CRP) provides useful information for the diagnosis, therapy and monitoring of inflammatory processes and associated diseases. For the evaluation of Relative Risk for Cardiovascular Disease, a High Sensitivity CRP (HSCRP) should be ordered. Performed By: #### L501.6710 #### [facility] [address] [place], [address] BRAIN WITHOUT Observed: 06/27/2018 Status: F Source: [place] CONTRAST 1:26 PM [facility] REPOSITORY [facility] Imaging Services [address] [place] [address] Brain without Contrast MR#: [id number] Acct: [id number] Name: AICHA ROLLINS Rep #: [id number] : 1950 F 67 From: Akbar Jo MD PCP: Lul Patel MD Status: ADM IN Study: Brain without Contrast Date of Exam: 06/27/18 Exam# [id number] Ordering Dr: Jeannette [place] MD STUDY: MRI BRAIN WITHOUT CONTRAST REASON FOR EXAM: Female, 67 years old. Seizures TECHNIQUE: Standardized multiplanar fat and water weighted pulse sequences were obtained. COMPARISON: February 17, 2018 FINDINGS: Normal size ventricles and cortical sulci for stated age Mild periventricular white matter ischemic changes.. Normal bilateral basal ganglia. Normal thalami. There is no extra-axial fluid accumulation. Normal flow voids within the major intracranial circulation suggesting patency by spin echo criteria. Normal sella turcica, pituitary gland, infundibular stalk, optic chiasm and hypothalamus. Normal tectal plate and pineal gland. Normal midbrain, shar and medulla. Normal cerebellum. Normal basal cisterns. Normal bilateral temporal bones. Normal bilateral internal auditory canals. No demonstrated orbital abnormality, within the constraints of a routine brain study. Normal visualized paranasal sinuses. Normal calvarium and skull base. Normal visualized soft tissue structures. Normal visualized upper cervical spine. Findings are similar to that seen previously although the disease in the parieto-occipital regions is less prominent on current study. No other significant changes MRI/Brain without Contrast IMPRESSION: Mild periventricular white matter ischemic changes without evidence for acute infarct. No evidence for acute infarct Slight interval improvement since previous study Electronically Signed: Akbar Jo MD at 16:05 EST , Service support , CC: Renetta [place] MD; Lul Patel MD Chief Knowledge Officer: Signed ECHOCARDIOGRAM COMPLETE Observed: 06/27/2018 Status: F Source: [place] 11:53 AM [facility] REPOSITORY [facility] Cardiovascular Services [address] [place] [address] Echo Complete 06/27/18 1025 MR#: [id number] Acct: [id number] Name: AICHA ROLLINS Rep #: [id number] : 1950 67 From: Jose Enrique Prince MD Attending Dr: Vandana Schwab Status: ADM IN Ordering Dr: Jennifer Coleman Date: 06/26/18 Location: ICU Sex: F C Admitted: 06/26/18 Reason For Study: Arrhythmia Procedure This was a 2D Doppler, Color Flow transthoracic echocardiogram. Exam performed portable in ICU/CCU. Left Ventricle Normal LV size. Left ventricular systolic function is normal. The estimated ejection fraction is 55 %. Stage 1 diastolic dysfunction. No regional wall motion abnormalities noted. Right Ventricle Normal RV size. Normal systolic function. Atria Normal left atrium. Normal right atrium. Mitral Valve Normal mitral valve. Tricuspid Valve Normal tricuspid valve. Mild (1+) tricuspid valve insufficiency. Pulmonary artery systolic pressure is 31 mmHg. Aortic Valve Normal aortic valve. Trisinus/trileaflet aortic valve. Pulmonic Valve Normal pulmonic valve. Great Vessels Normal aortic root. The pulmonary artery is normal size. Normal inferior vena cava. Pericardium/Pleural No pericardial effusion. MMode/2D Measurements AND Calculations LVIDd: 3.8 cm IVSd: 0.76 cm Ao root diam: 3.0 cm LVIDs: 3.0 cm LVPWd: 1.3 cm RVDd: 3.4 cm FS: 21.7 % LAV(MOD-bp): 55.4 ml LA A4 area: 19.5 cm2 RA A4 area: 14.5 cm2 LAV(MOD-bp) Indexed: 34.6 ml/m2 LAV(MOD-sp2): 47.3 ml LAV(MOD-sp4): 59.7 ml Time Measurements MV dec time: 0.20 sec Doppler Measurements AND Calculations MV E max trudy: 117.6 cm/sec Med Peak E' Trudy: 8.3 cm/sec MV V2 max: 140.6 cm/sec MV A max trudy: 130.5 cm/sec E/E' med: 14.2 MV max P.9 mmHg MV E/A: 0.90 MV V2 mean: 69.5 cm/sec MV mean P.4 mmHg MV V2 VTI: 28.2 cm Ao V2 max: 158.9 cm/sec LV V1 max: 132.1 cm/sec PA V2 max: 107.9 cm/sec Ao max P.1 mmHg LV V1 max P.0 mmHg Ao V2 mean: 102.8 cm/sec LV V1 mean P.4 mmHg Ao mean P.8 mmHg LV V1 mean: 85.6 cm/sec Ao V2 VTI: 29.3 cm LV V1 VTI: 23.2 cm TR max trudy: 257.6 cm/sec TR max P.5 mmHg Interpretation Summary Normal LV size. Left ventricular systolic function is normal. The estimated ejection fraction is 55 %. Stage 1 diastolic dysfunction. Structurally normal valves. Ordering Physician: Jennifer Coleman Performed By: Nj Dominguez RCS 06/27/18 1153 Date Jose Enrique Prince MD CC: Jennifer Coleman; Vandana Schwab; Lul Patel MD Date Dictated: 06/27/18 1025 Date Transcribed: 06/27/18 115 Chief Knowledge Officer: Signed CONSULTATION Observed: 06/27/2018 Status: F Source: [place] 8:23 AM [facility] REPOSITORY [facility] Medical Records Department [address] [place] [address] Consultation 06/27/18617 MR#: [id number] Acct: [id number] Name: AICHA ROLLINS Rep #: [id number] : 1950 67 From: Natan Giraldo DO PCP: Lul Patel MD Status: ADM IN Y Location: ICU ICU06-1 Reason for Consult Date of Consultation: 06/27/18 Reason for Consultation: Respiratory failure, aspiration/CAP, seizures History of Present Illness: The patient is a 67-year-old female, with a history as outlined below, who presented to the emergency department on June 26 in an unresponsive state. The patient reportedly has a history of epilepsy but has been noncompliant with the use of antiepileptic medications. She reportedly became noncompliant with the use of Keppra, due to perceived side effects. History pertinent to the patient's hospitalization was obtained primarily via chart review, as the patient is currently intubated and there is no family available at the bedside. On presentation to the emergency department, the patient was noted to be afebrile, tachycardic and hypoxic on room air. Laboratory evaluation revealed an elevated white blood cell count to 16,000. Urinalysis was negative. Toxicology screen was negative. Chemistry profile was largely unremarkable. Troponin was mildly elevated to 0.051. Head CT revealed minor periventricular white matter ischemic changes. Per ED documentation, the patient reportedly had 4 seizures on the day of her arrival. It was documented that shortly upon her arrival to the emergency department, the patient again began seizing. She was treated with IV Ativan and started on a Dilantin drip. The patient's plain film chest x-ray did reveal evidence of bilateral upper lobe infiltrates. She was also incidentally noted to be in atrial fibrillation, which was transient in nature prior to converting back to normal sinus rhythm. The patient was started on ceftriaxone and azithromycin. Cultures were obtained. Neurology was consulted and the patient was subsequently transferred to the medical intensive care unit for ongoing management. Past Medical History Past Medical History (Chronic Problems): Chronic Problems Anxiety and depression (Chronic) Narcolepsy (Chronic) Hep C (Chronic) Von Willebrand disease (Chronic) Gastroesophageal reflux disease (Chronic) Rheumatoid arthritis (Chronic) Allergies codeine Allergy (Verified 06/26/18 18:49) Hives morphine Allergy (Verified 06/26/18 18:49) Hives Opioids - Morphine Analogues Allergy (Verified 06/26/18 18:49) Hives amicar Adverse Reaction (Uncoded 06/26/18 18:49) Other sassafrass Adverse Reaction (Uncoded 06/26/18 18:49) Nausea/Vom/Diarrhea Home Medications: Ambulatory Orders Medication Instructions Recorded Surgical History: - - L Breast biopsy, D AND C, Cholecystectomy, Appendectomy. 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 Smoking Status: Former smoker - *Family History Maternal History Items: Cancer - Uterine CA. Paternal History Items: - - No marked paternal family history including HD, DM, CA. Review of Systems Constitutional: Reports: Weakness, Fatigue Eyes: Denies: Blurred vision, Double vision HEENT: Denies: Head Aches, Sinus Congestion, Sinus Drainage Cardiovascular: Denies: Chest Pain, Palpitations Respiratory: Reports: Cough, Sputum production Gastrointestinal: Denies: Abdominal Pain, Nausea, Vomiting Genitourinary: Denies: Dysuria Musculoskeletal: Denies: Joint Pain, Joint Tenderness Skin: Denies: Rash, Wounds Neurological: Reports: Seizures Psychiatric: Reports: Anxiety, Depression Hematologic/ Lymphatic: Denies: Easy Bruising, Easy Bleeding Patient Problems: Active and Suspected Problems Cardiac enzymes elevated (Acute) PAF (paroxysmal atrial fibrillation) (Acute) Pneumonia (Acute) Sepsis (Acute) Acute respiratory failure with hypoxia (Acute) Objective: The patient's most recent lab work, culture data and imaging studies have all been personally reviewed. Strep and urine Legionella antigens were both negative. Respiratory viral panel was negative. Blood cultures are currently pending. - Physical Exam General: - - Arouses to verbal stimulation but remains confused. HEENT: Atraumatic, PERRLA, Normocephalic Oral: Dry Mucosa Neck: Supple, No Nodes, Trachea Midline Lungs: No rhonchi, No wheeze, No rales, Diminished Cardiovascular: Regular rate, Regular Rhythm, Normal S1, Normal S2, No murmurs Abdomen: Bowel Sounds Present, Soft, Non Tender Extremities: No clubbing, No cyanosis, No edema Skin: No breakdown Musculoskeletal: No Muscle Wasting Lymphatic: No Cervical, Supraclavicular, or Inguinal Adenopathy Neurological: - - Globally diminished musculoskeletal strength due to poor patient effort. The patient is still quite somnolent. Psych/Mental Status: Flat Affect Vital Signs Temp Pulse Resp BP Pulse Ox 37.8 C H 76 23 H 109/61 92 06/27/18 06:00 06/27/18 06:00 06/27/18 06:00 06/27/18 06:00 06/27/18 06:00 Oxygen Flow Rate (L/min) 3 Oxygen Delivery Method Nasal Cannula Weight: 122 lb 9.232 oz Body Mass Index (BMI) 20.4 Finger Stick Blood Glucose 117 Intake and Output for Last 24 Hours Intake Total 1022 / 1022 Output Total 1000 / 1000 200 / 200 Balance -1000 / -1000 822 / 822 Microbiology Past 72 Hours 06/26/18 23:30 Streptococcus pneumoniae Antigen (M - Final Urine Catheter - Catheter 06/26/18 23:30 Legionella Antigen - Final Urine Catheter - Catheter Laboratory Tests Past 24 Hrs WBC RBC Hgb Hct Clinical Impression(s) from Imaging Studies Brain CT 06/26/18 18:52 IMPRESSION: Minor periventricular white matter ischemic changes MRI would be helpful for further evaluation if clinically warranted Electronically Signed: Akbar Jo MD at 21:02 EST , Service support , Chest X-Ray 06/26/18 18:56 IMPRESSION: Bilateral infiltrates worrisome for pneumonia, predominating in the upper lobes. Electronically Signed: Steve Mars MD at 19:31 EST , Service support , Assessment/Plan Active and Suspected Problems Cardiac enzymes elevated (Acute) PAF (paroxysmal atrial fibrillation) (Acute) Pneumonia (Acute) Sepsis (Acute) Acute respiratory failure with hypoxia (Acute) RECOMMENDATIONS: 1. Continue Dilantin as ordered. 2. Await neurology consultation and EEG. 3. Transition from ceftriaxone and azithromycin to Zosyn. 4. Patient to remain n.p.o. for now. 5. Maintain seizure and aspiration precautions 6. Wean supplemental oxygen to maintain saturations at or above 90%. 7. Continue PPI and Lovenox for prophylaxis. IMPRESSIONS: 1. Acute hypoxic respiratory failure The patient presented to the emergency department hypoxic and appears to have required upwards of 15 L nonrebreather at one point early on in her hospitalization. Given her current clinical state and history leading up to her hospitalization along with chest x-ray findings, concern is for aspiration pneumonia. I would favor discontinuation of ceftriaxone and azithromycin. Instead, would favor use of Zosyn for now. Wean supplemental oxygen as tolerated. Maintain aspiration precautions. Continue n.p.o. status. 2. Encephalopathy Secondary to seizure activity and subsequent postictal state in the setting of noncompliance with AED's. Neurology has been consulted to see patient. Will defer medical management/AED preference to neuro. EEG is currently pending. Continue seizure precautions. 3. Paroxysmal atrial fibrillation/history of rheumatoid arthritis/hypertension/? Von Willebrand disease/chronic hepatitis C/depression/anxiety Complicates care, management, recovery and prognosis. Continue appropriate prophylaxis as ordered. This note was generated with [employer] software. It may contain incorrect words, spelling, and punctuation that were not noted in checking the note before signing. Code Visit Inpatient E AND M: 67057 Init Hosp L3 06/27/18 0823 <Electronically signed by Natan Giraldo DO> Date Natan Giraldo DO Cosigner Signature (if applicable): Date CC: Renetta Wilson MD; Lul Patel MD; Natan Giraldo D.O. Signed Observed: 06/27/2018 Status: F Source: [place] RESPIRATORY PANEL 6:00 AM [facility] MOLECULAR REPOSITORY RP PANEL Normal Reference Range = Not Detected Copy of report sent to Infection Control Printer [id number] 06/27/18 Codie BRENNENOMAR. RESULTS CALLED TO JOSEPH 06/27/18 1008 Isadora Andino. ADENOVIRUS Not Detected HUMAN METAPHNEUMO Not Detected INFLUENZA A Not Detected INFLUENZA A (SUBTYPE H1) Not Detected INFLUENZA A (SUBTYPE H3) Not Detected INFLUENZA B Not Detected PARAINFLUENZA 1 Not Detected PARAINFLUENZA 2 Not Detected PARAINFLUENZA 3 Not Detected PARAINFLUENZA 4 Not Detected RHINOVIRUS Positive for RHINOVIRUS by NAAT technology RSV A Not Detected RSV B Not Detected NAAT METHOD Testing was performed using nucleic acid amplification ORGANISM 1: RHINOVIRUS Performed By: #### M100.638 #### [facility] [address] [place], [place], [id number] CBC W/DIFF, AUTOMATED Collected: 06/27/2018 Status: F Source: [place] 4:30 AM [facility] REPOSITORY TYPE CODE TESTS RESULT OUT OF RANGE REFERENCE UNITS LAB L100.1000 4.4-11.0 K/mm3 High WBC 12.3 LAB L100.1200 4.2-5.4 M/mm3 Low RBC 3.96 LAB L100.1300 12.0-15.0 g/dl Low HGB 10.5 LAB L100.1400 37-47 % Low HCT 32.9 LAB L100.1500 81-99 fL Normal MCV 83.1 LAB L100.1600 27.0-32.0 pg Low MCH 26.5 LAB L100.1700 32-36 g/gl Low MCHC 31.9 LAB L100.1810 11.6-14.6 % High RDW CV 15.3 LAB L100.1820 35.1-43.9 fl High RDW SD 46.5 LAB L100.1900 150-450 K/mm3 Normal PLT 241 LAB L100.2000 6.2-12.0 fl Normal MPV 11.7 LAB L100.2100 47-70 % High NEUT% 88.7 LAB L100.2200 19-41 % Low LY% 8.3 LAB L100.2300 0-10 % Normal MONO% 2.6 LAB L100.2400 0-5 % Normal EO% 0.1 LAB L100.2500 0-1 % Normal BASO% 0.1 LAB L100.2550 0.0-0.9 % Normal IM GRAN % 0.200 Result Comment: IG% - Immature Granulocytes (promyelocytes, myelocytes and metamyelocytes) > 1% indicates that a LEFT SHIFT is Present. LAB L100.2620 2.0-7.7 X10 3/uL High Absolute Neut 10.9 LAB L100.2720 0.83-4.51 X10 3/ul Normal Absolute Lymph 1.02 Performed By: #### L100.0100 #### [facility] [address] [place], [address] BASIC METABOLIC Collected: 06/27/2018 Status: F Source: [place] PROFILE (BMP) 4:30 AM [facility] REPOSITORY TYPE CODE TESTS RESULT OUT OF RANGE REFERENCE UNITS LAB L501.0100 74-106 mg/dL Normal GLU 100 Result Comment: Fasting Glucose result from 100 to 125 mg/dL suggests IMPAIRED HOMEOSTASIS per A.D.A. criteria. Please note revised GLUCOSE reference range effective 2017. LAB L501.1000 7-18 mg/dL Low BUN 6 LAB L501.1100 0.55-1.02 mg/dL Normal CREAT,SERUM 0.60 Result Comment: The validity of the calculated GFR AND GFRAA in patients over 70 years has not been determined. Clinical correlation is essential. LAB L501.1110 >60 mL/min Normal EST GFR 106 Result Comment: Non- GFR Calc LAB L501.1115 >60 mL/min Normal EST GFR - AA 128 Result Comment: GFR Calc LAB L501.1255 ml/min Normal Estimated CRCL 48.57 LAB L501.1300 10-20 RATIO Normal BUN/CRE 10.0 LAB L501.2200 8.5-10 mg/dL Low .1 CA 7.7 LAB L501.5300 136-14 mmol/L Normal 5 NA 136 LAB L501.5600 3.5-5. mmol/L Normal 1 K 3.5 LAB L501.5900 98-107 mmol/L Normal CL 102 LAB L501.6100 21.0-3 mmol/L Normal 2.0 CO2 25.0 LAB L501.6200 5-15 Normal GAP 9 Performed By: #### L500.2500, L501.5200 #### [facility] [address] [place], [place], [address] MAGNESIUM Collected: 06/27/2018 Status: F Source: [place] 4:30 AM [facility] REPOSITORY TYPE CODE TESTS RESULT OUT OF RANGE REFERENCE UNITS LAB L501.5200 1.6-2.6 mg/dL Normal MG 1.9 Performed By: #### L500.2500, L501.5200 #### [facility] [address] [place], [address] PHOSPHORUS Collected: 06/27/2018 Status: F Source: [place] 4:30 AM [facility] REPOSITORY TYPE CODE TESTS RESULT OUT OF RANGE REFERENCE UNITS LAB L501.2300 2.5-4.9 mg/dL Normal PHOS 2.9 Performed By: #### L501.2300 #### [facility] [address] [place], [address] TROPONIN-I Collected: 06/27/2018 Status: F Source: [place] 2:20 AM [facility] REPOSITORY Order Comment: 'TROP' Serial specimen #1, #2 or #3: 3 'TROP' Serial specimen #1, #2, #3, or #4: 3 TYPE CODE TESTS RESULT OUT OF RANGE REFERENCE UNITS LAB L501.4010 <0.045 ng/mL High 0.046 TROPONIN-I Result Comment: TROPONIN-I EXPECTED VALUES <0.045 Negative 0.045 - 0.590 Consistent with Cardiac Damage > OR = 0.600 Critical Value Not every elevated troponin is indicative of ND. These values should be used with clinical judgement in examining the patient's clinical picture for diagnosis. To establish a diagnosis of ND versus myocardial injury, there must be a demonstrated rise and/or fall in the troponin values, in addition to ischemic symptoms, EKG changes, new regional wall motion abnormality, and/or angiographical evidence. PLEASE NOTE: REFERENCE RANGES EDITED 17 Performed By: #### L501.4010 #### [facility] [place], [address] HISTORY AND PHYSICAL Observed: 06/27/2018 Status: F Source: [place] EXAM 1:42 AM [facility] REPOSITORY [facility] Medical Records Department [facility] [place] [address] History and Physical 06/26/182117 MR#: [id number] Acct: [id number] Name: AICHA ROLLINS Makenzie Rep #: [id number] : 1950 67 From: Jennifer Coleman PCP: Lul Patel MD Status: ADM IN Y Location: ICU ICU06-1 Problem List (1) Sepsis Status: Acute Qualifiers: Sepsis type: sepsis due to unspecified organism Qualified Code(s): A41.9 - Sepsis, unspecified organism (2) Acute respiratory failure with hypoxia Status: Acute (3) Pneumonia Status: Acute Qualifiers: Pneumonia type: due to unspecified organism Laterality: bilateral Lung location: upper lobe of lung Qualified Code(s): J18.1 - Lobar pneumonia, unspecified organism (4) Cardiac enzymes elevated Status: Acute (5) PAF (paroxysmal atrial fibrillation) Status: Acute (6) Seizure Status: Acute (7) Anxiety and depression Status: Chronic (8) Narcolepsy Status: Chronic (9) Hep C Status: Chronic (10) Von Willebrand disease Status: Chronic (11) Gastroesophageal reflux disease Status: Chronic Qualifiers: Esophagitis presence: esophagitis presence not specified (12) Rheumatoid arthritis Status: Chronic Qualifiers: Rheumatoid arthritis location: unspecified site Rheumatoid factor presence: unspecified presence Qualified Code(s): M06.9 - Rheumatoid arthritis, unspecified History of Present Illness Date of Admission: 06/26/18 Chief Complaint: Seizures, recent cough, unresponsive. 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 Upon ED presentation, patient had onset tonic clonic seizure and was administered ativan IV with resolution. Family present noted she had taken herself off of several of her medications in March secondary to medication side effects including her seizure medications. Workup in the ED included T 98.6, heart rate 115, BP 153/81, respiratory rate 19, 81% on room air initially--> 96% on nonrebreather, CBC with WBC 16.7, hemoglobin 11.7, platelet 268 with left shift, ABG with pH 7.28, bicarb 19.9 otherwise not market appearing and obtained following administration of nonrebreather 15 L flow, CMP with sodium 135, troponin 0.049, urinalysis with specific gravity 1.020 otherwise not market appearing, urine drug screen unremarkable, alcohol unremarkable, CT brain with minor periventricular white matter ischemic changes, chest x-ray with bilateral infiltrates worrisome for pneumonia predominating in the upper lobes, EKG with atrial fibrillation rate controlled with no prior history noted. In ED patient administered normal saline, IV Ativan, phenytoin IV, Rocephin and azithromycin. Past Medical History Past Medical History (Chronic Problems): Chronic Problems Anxiety and depression (Chronic) Narcolepsy (Chronic) Hep C (Chronic) Von Willebrand disease (Chronic) Gastroesophageal reflux disease (Chronic) Rheumatoid arthritis (Chronic) Allergies codeine Allergy (Verified 06/26/18 18:49) Hives morphine Allergy (Verified 06/26/18 18:49) Hives Opioids - Morphine Analogues Allergy (Verified 06/26/18 18:49) Hives amicar Adverse Reaction (Uncoded 06/26/18 18:49) Other sassafrass Adverse Reaction (Uncoded 06/26/18 18:49) Nausea/Vom/Diarrhea Home Medications: Ambulatory Orders Medication Instructions Recorded Surgical History: - - L Breast biopsy, D AND C, Cholecystectomy, Appendectomy. 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 Smoking Status: Former smoker - *Family History Maternal History Items: Cancer - Uterine CA. Paternal History Items: - - No marked paternal family history including HD, DM, CA. Review of Systems Constitutional: Reports: Anorexia, Malaise, Weakness, Fatigue. Denies: Chills, Fever, Weight Change HEENT: Denies: Head Aches, Sinus Congestion, Sinus Drainage Cardiovascular: Denies: Chest Pain, Palpitations Respiratory: Reports: Cough, Sputum production. Denies: Shortness of breath at rest Gastrointestinal: Denies: Abdominal Pain, Nausea, Vomiting Genitourinary: Denies: Dysuria Musculoskeletal: Denies: Joint Pain, Joint Tenderness Skin: Denies: Rash, Wounds Neurological: Reports: Seizures. Denies: Focal weakness, Numbness, Tingling Psychiatric: Reports: Anxiety, Depression. Denies: Homicidal Ideations, Suicidal Ideations Hematologic/ Lymphatic: Reports: Easy Bruising, Easy Bleeding Comment: ROS obtained per family present. Patient post-ictal and unable to give ROS information. VTE Information - Inpt Only VTE Present on Admission: No VTE Mechan Device Prophylaxis: SCD's VTE Pharm Prophylaxis ordered?: Yes Patient Problems: Active and Suspected Problems Cardiac enzymes elevated (Acute) PAF (paroxysmal atrial fibrillation) (Acute) Pneumonia (Acute) Sepsis (Acute) Acute respiratory failure with hypoxia (Acute) Subjective: Laying in the ED bed, still lethargic, post-ictal, respiratory status improved from initial ED presentation, NRB in place. Objective: Physical Examination: General: awakes intermittently, not alert, not oriented, post- ictal, unable to follow any commands, laying in the ED bed. Skin: normal color, turgor, no icterus, cyanosis. HEENT: AT/NC, EOM unable to be assessed, PERRLA, dry MM, no carotid bruits or JVD noted. Lungs: BL diminished, poor effort, R > L anterior and laterally coarse BS, no wheezing, still mildly increased RR, some accessory muscle usage, improved from initial ED presentation. Heart: Irregular irregular; no gallop, rub audible. Abdomen: soft, NTTP, ND, normal BS, no HSM. Extremities: no cyanosis, clubbing, or edema. Neurological: awakes intermittently, not alert, not oriented, post-ictal, unable to follow any commands, laying in the ED bed; cognitive function not baseline intact; pupils equally reactive to light and accomodation; cranial nerves unable to be assessed in detail but grossly appear normal secondary to post-ictal status, moving all 4 extremities, strength severely globally decreased. Psychiatric: affect appears flat, sedate, no acute evidence of depressive or anxiety feelings. - Physical Exam Vital Signs Temp Pulse Resp BP Pulse Ox 98.6 F 88 22 H 105/62 98 06/26/18 18:45 06/26/18 21:08 06/26/18 21:08 06/26/18 21:08 06/26/18 21:08 Oxygen Flow Rate (L/min) 15 Oxygen Delivery Method Non-Rebreather Weight: 143 lb 4.807 oz Body Mass Index (BMI) 0.0 Finger Stick Blood Glucose 117 Laboratory Tests Past 24 Hrs WBC 16.7 H RBC 4.42 Hgb 11.7 L Hct 36.6 L MCV 82.8 MCH 26.5 L MCHC 32.0 WBC RBC Hgb Hct MCV MCH MCHC RDW RDW Differential Plt Count MPV Immature Gran % (Auto) Neut % (Auto) Lymph % (Auto) Assessment/Plan All Active Problems Seizure (Acute) Cardiac enzymes elevated (Acute) PAF (paroxysmal atrial fibrillation) (Acute) Pneumonia (Acute) Sepsis (Acute) Acute respiratory failure with hypoxia (Acute) Influenza A (Acute) Mental status change (Acute) The patient is a 67 y/o F w/ PMHx: History of Generalized Tonic-Clonic Seizure Seizure History not on AED secondary to taking herself off regimen, 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 (1) Acute Sepsis secondary to Acute Hypoxic Respiratory Failure secondary to Suspected Aspiration Pneumonia secondary to recent Tonic Clonic Seizures and possible Prior CAP: Will admit to ICU, maintain on NRB, given current acute presentation w/ repeat seizures, hesitant to utilize CPAP, transition to NC as tolerated, continue ATC duonebs, PRN albuterol, maintain on IV Zosyn w/ pending MRSA assessment, HOB, IS parameters w/ pending sputum cultures, respiratory viral panel and urine antigens. Bld cx x 2 obtained in the ED. ICU physician consulted. (2) Paroxsymal atrial fibrillation, Rate Controlled w/ Indeterminant Cardiac Enzyme: EKG in ED w/ atrial fibrillation, rate controlled in the ED, no noted prior history. Will maintain on telemetry, obtain cardiac enzyme serial set, obtain magnesium level, obtain ECHO, obtain TSH level. Will place on therapeutic lovenox. Suspect onset secondary to acute presentation #1, hypoxia, recent seizures. Will continue to monitor and if does not convert would plan consultation w/ Cardiology. (3) Seizure, Tonic Clonic: Noted to have taken herself off of her AED Keppra secondary to lethargy in March, onset family noted seizure activity at least 4x over the last day with additional episode upon ED presentation, suspect was having seizures prior and aspirated with acute #1 as noted, will maintain on dilantin given family/patient complaint of lethargy and sedation with keppra, Neurology consulted, given onset seizures secondary to non-compliance with AEDs defer repeat MRI brain, will obtain EEG in AM per ICU physician request, obtain Mag, TSH levels, maintain on seizure precautions, PRN IV ativan. (4) Rheumatoid Arthritis: Previous on chronic prednisone therapy, family notes she was weaned off and has been off for several months, defer stress dosing given this history. (5) Hypertension: PRN hydralazine. (6) Von Willebrand disease: Given current presentation, will place on chemoprophylaxis, but given history if any bleeding concerns will need to hold, unclear specific type of disease status. (7) Hepatitis C, Chronic: Encourage continued GI/ID evaluation and follow-up outpatient. (8) Depression and Anxiety: Not on regimen, encourage PCP follow-up. (9) Narcolepsy: Not on any medication, unclear if following w/ Neurology/Sleep medicine. (10) GERD: IV PPI. (11) DVT Prophylaxis: SCDs, therapeutic lovenox. (12) CODE status: Discussed CODE status at length with family including difference between FULL code, DNR-CCA and DNR-CC status. Following discussions about the differences in these status, requested Full Code status. Advanced Care Planning Face to Face Time: 16 minutes. Code Visit Inpatient E AND M: 07254 Init Hosp L3 Procedures: 57199 Advncd Care Plan 30 Min 06/27/18 0142 <Electronically signed by Jennifer Coleman > Date Jennifer Coleman Cosigner Signature: Date (if applicable) CC: Jennifer Coleman; Lul Patel MD Signed Observed: 06/26/2018 Status: F Source: [place] LEGIONELLA ANTIGEN 11:30 PM [facility] URINE REPOSITORY Specimen Source: URINE, DE GUZMAN Legionella, UR Legionella Antigen result interpretation: Negative Presumptive negative for Legionella pneumophila serogroup 1 antigen in urine, suggesting no recent or current infection. Legionella Ag, Urine Negative (See interpretation below) Performed By: #### M300.4500 #### [facility] [address] [place], [address] STREP Observed: 06/26/2018 Status: F Source: [place] PNEUMONIAE ANTIG(UR,CSF) 11:30 PM [facility] REPOSITORY S pneumo Ag URINE INTERPRETATION Negative Urine Presumptive negative for pneumococcal pneumonia, suggesting no current or recent pneumococcal infection. Infection due to S pneumoniae cannot be ruled out since the antigen present in the sample may be below the detection limit of the test. Strep pneumo Test Negative URINE (See interpretation below) Performed By: #### M300.4600 #### [facility] [address] [place], [address] TROPONIN-I Collected: 06/26/2018 Status: F Source: [place] 11:30 PM [facility] REPOSITORY Order Comment: 'TROP' Serial specimen #1, #2 or #3: 2 TYPE CODE TESTS RESULT OUT OF RANGE REFERENCE UNITS LAB L501.4010 <0.045 ng/mL High 0.051 TROPONIN-I Result Comment: TROPONIN-I EXPECTED VALUES <0.045 Negative 0.045 - 0.590 Consistent with Cardiac Damage > OR = 0.600 Critical Value Not every elevated troponin is indicative of ND. These values should be used with clinical judgement in examining the patient's clinical picture for diagnosis. To establish a diagnosis of ND versus myocardial injury, there must be a demonstrated rise and/or fall in the troponin values, in addition to ischemic symptoms, EKG changes, new regional wall motion abnormality, and/or angiographical evidence. PLEASE NOTE: REFERENCE RANGES EDITED 17 Performed By: #### L501.4010 #### [facility] [address] [place], [address] M R STAPH AUREUS Collected: 06/26/2018 Status: F Source: [place] DNA BY PCR 11:30 PM [facility] REPOSITORY TYPE CODE TESTS RESULT OUT OF RANGE REFERENCE UNITS LAB L8200.1100 Negative Normal MRSA Negative RESULT Performed By: #### L8200.1000 #### [facility] [address] [place], [place], [address] LACTIC ACID Collected: 06/26/2018 Status: F Source: [place] 9:31 PM [facility] REPOSITORY Order Comment: Yes/No query for Sepsis Lactate Rule Y TYPE CODE TESTS RESULT OUT OF RANGE REFERENCE UNITS LAB L503.6005 0.4-2.0 mmol/L Normal LACTIC ACID 2.0 Result Comment: Critical Result(s) Called at: 22:11:41 06/26/2018 by: Jenny mendoza Sidney Performed By: #### L503.6005 #### [facility] [address] [place], [address] EMERGENCY DEPARTMENT Observed: 06/26/2018 Status: F Source: [place] SUMMARY 9:27 PM [facility] REPOSITORY [facility] Medical Records Department [address] [place] [address] Emergency Department Summary 06/26/18 1858 MR#: [id number] Acct: [id number] Name: AICHA ROLLINS Rep #: [id number] : 1950 67 From: Rashmi Sanz MD PCP: Lul Patel MD Status: REG ER - ER Visit Summary Date of Service: 06/26/18 Chief Complaint: Unresponsive History of Present Illness: The patient is a 67 F presenting per EMS with unresponsiveness. Patient's family states she went to take a nap at 4 PM, 3 hours prior to arrival and she would not wake up. EMS was called. Her pulse ox was 75% on their arrival. Shortly after she arrived to the ED she started seizing. stated that she took herself off Keppra several months ago. She has had 4 seizures today. Physical Examination: Vitals are stable. Pulse ox 96% on nonrebreather, patient is afebrile. Postictal HEENT exam is unremarkable. Neck is supple. Lungs are clear and equal bilaterally. Heart is regular tachycardic Abdomen is soft nontender nondistended. Extremities are unremarkable. Skin is warm and dry Postictal Remainder of exam is unremarkable. Emergency Department Course and Treatment: Patient was given Ativan IV. She was started on Dilantin drip. EKG is A. fib rate of 115. CBC shows white count 16.7, hemoglobin 11.7. Chemistries show sodium 135. Urinalysis unremarkable. Troponin 0.049. Chest x-ray shows bilateral upper lobe infiltrates. Family states she has had a cough for the past couple of days. She is given Rocephin and Zithromax IV. Blood cultures were sent prior to antibiotics. Tox and alcohol are negative. Discussed with the hospitalist for admission. Disposition: Admission Impression: Seizure, noncompliance, pneumonia, A. fib with RVR This note was generated with [employer] software. It may contain incorrect words, spelling, and punctuation that were not noted in review of the chart prior to signing ED Disposition - Plan for ED Patient: Chief Complaint: Seizure Referrals: Robert Patel MD [Primary Care Provider] - What to do if you have Problems For any increased pain, shortness of breath, bleeding, nausea or vomiting, chest pain, or any unexpected problems, contact your Primary Care Provider. Call [facility] ([phone]) or report to the closest Emergency Room. Call 911 if necessary. 06/26/182126 <Electronically signed by Rashmi Sanz MD> Date Rashmi Sanz MD Cosigner Signature (If Indicated): Date CC: Lul Patel MD CBC W/DIFF, AUTOMATED Collected: 06/26/2018 Status: F Source: [place] 8:02 PM [facility] REPOSITORY TYPE CODE TESTS RESULT OUT OF RANGE REFERENCE UNITS LAB L100.1000 4.4-11.0 K/mm3 High WBC 16.7 LAB L100.1200 4.2-5.4 M/mm3 Normal RBC 4.42 LAB L100.1300 12.0-15.0 g/dl Low HGB 11.7 LAB L100.1400 37-47 % Low HCT 36.6 LAB L100.1500 81-99 fL Normal MCV 82.8 LAB L100.1600 27.0-32.0 pg Low MCH 26.5 LAB L100.1700 32-36 g/gl Normal MCHC 32.0 LAB L100.1810 11.6-14.6 % High RDW CV 15.2 LAB L100.1820 35.1-43.9 fl High RDW SD 46.0 LAB L100.1900 150-450 K/mm3 Normal PLT 268 LAB L100.2000 6.2-12.0 fl Normal MPV 11.4 LAB L100.2100 47-70 % High NEUT% 88.2 LAB L100.2200 19-41 % Low LY% 5.3 LAB L100.2300 0-10 % Normal MONO% 6.2 LAB L100.2400 0-5 % Normal EO% 0.1 LAB L100.2500 0-1 % Normal BASO% 0.1 LAB L100.2550 0.0-0.9 % Normal IM GRAN % 0.100 Result Comment: IG% - Immature Granulocytes (promyelocytes, myelocytes and metamyelocytes) > 1% indicates that a LEFT SHIFT is Present. LAB L100.2620 2.0-7.7 X10 3/uL High Absolute Neut 14.7 LAB L100.2720 0.83-4.51 X10 3/ul Normal Absolute Lymph 0.88 Performed By: #### L100.0100 #### [facility] [address] [place], [address] BASIC METABOLIC Collected: 06/26/2018 Status: F Source: [place] PROFILE ([facility]) 8:02 PM [facility] REPOSITORY TYPE CODE TESTS RESULT OUT OF RANGE REFERENCE UNITS LAB L501.0100 74-106 mg/dL Normal GLU 106 Result Comment: Fasting Glucose result from 100 to 125 mg/dL suggests IMPAIRED HOMEOSTASIS per A.D.A. criteria. Please note revised GLUCOSE reference range effective 2017. LAB L501.1000 7-18 mg/dL Low BUN 6 LAB L501.1100 0.55-1.02 mg/dL Normal CREAT,SERUM 0.76 Result Comment: The validity of the calculated GFR AND GFRAA in patients over 70 years has not been determined. Clinical correlation is essential. LAB L501.1110 >60 mL/min Normal EST GFR 81 Result Comment: Non- GFR Calc LAB L501.1115 >60 mL/min Normal EST GFR - AA 98 Result Comment: GFR Calc LAB L501.1255 ml/min Normal Estimated CRCL 56.78 LAB L501.1300 10-20 RATIO Low BUN/CRE 7.9 LAB L501.2200 8.5-10 mg/dL Low .1 CA 8.3 LAB L501.5300 136-14 mmol/L Low 5 NA 135 LAB L501.5600 3.5-5. mmol/L Normal 1 K 3.6 LAB L501.5900 98-107 mmol/L Normal CL 102 LAB L501.6100 21.0-3 mmol/L Normal 2.0 CO2 24.0 LAB L501.6200 5-15 Normal GAP 9 Performed By: #### L500.2500, L501.4010, L501.5200 #### [facility] [address] [place], [place], [address] TROPONIN-I Collected: 06/26/2018 Status: F Source: [place] 8:02 PM [facility] REPOSITORY TYPE CODE TESTS RESULT OUT OF RANGE REFERENCE UNITS LAB L501.4010 <0.045 ng/mL High 0.049 TROPONIN-I Result Comment: TROPONIN-I EXPECTED VALUES <0.045 Negative 0.045 - 0.590 Consistent with Cardiac Damage > OR = 0.600 Critical Value Not every elevated troponin is indicative of ND. These values should be used with clinical judgement in examining the patient's clinical picture for diagnosis. To establish a diagnosis of ND versus myocardial injury, there must be a demonstrated rise and/or fall in the troponin values, in addition to ischemic symptoms, EKG changes, new regional wall motion abnormality, and/or angiographical evidence. PLEASE NOTE: REFERENCE RANGES EDITED 17 Performed By: #### L500.2500, L501.4010, L501.5200 #### [facility] [address] [place], [place], [address] MAGNESIUM Collected: 06/26/2018 Status: F Source: [place] 8:02 PM [facility] REPOSITORY TYPE CODE TESTS RESULT OUT OF RANGE REFERENCE UNITS LAB L501.5200 1.6-2.6 mg/dL Normal MG 1.8 Performed By: #### L500.2500, L501.4010, L501.5200 #### [facility] [address] [place], [address] PHOSPHORUS Collected: 06/26/2018 Status: F Source: [place] 8:02 PM [facility] REPOSITORY TYPE CODE TESTS RESULT OUT OF RANGE REFERENCE UNITS LAB L501.2300 2.5-4.9 mg/dL Normal PHOS 2.6 Performed By: #### L501.2300 #### [facility] [address] [place], [address] ALCOHOL, BLOOD Collected: 06/26/2018 Status: F Source: [place] (MEDICAL)-SERUM 8:02 PM [facility] REPOSITORY TYPE CODE TESTS RESULT OUT OF RANGE REFERENCE UNITS LAB L501.9100 mg/dL Normal SERUM < 3.0 ETOH Result Comment: The serum:whole blood ethanol ratio is approximately 1.14 and varies slightly with hematocrit. Medical Alcohol reference interval and critical value in non-tolerant individuals; 50 - 100 Impairment 100 Intoxication 100 - 250 Severe Poisoning 250 - 400 Deep/possible fatal coma Performed By: #### L501.9100 #### [facility] [address] [place], [address] MAGNESIUM Collected: 06/26/2018 Status: F Source: [place] 8:02 PM [facility] REPOSITORY TYPE CODE TESTS RESULT OUT OF RANGE REFERENCE UNITS LAB L501.5200 1.6-2.6 mg/dL Normal MG 1.8 Performed By: #### L501.5200, L501.9520, L506.0400 #### [facility] [address] [place], [address] THYROID STIM HORMONE Collected: 06/26/2018 Status: F Source: [place] (TSH) 8:02 PM [facility] REPOSITORY TYPE CODE TESTS RESULT OUT OF RANGE REFERENCE UNITS LAB L501.9520 0.358-3.74 uIU/mL Normal TSH 1.56 Performed By: #### L501.5200, L501.9520, L506.0400 #### [facility] [address] [place], [address] T4 FREE DIRECT Collected: 06/26/2018 Status: F Source: [place] 8:02 PM [facility] REPOSITORY TYPE CODE TESTS RESULT OUT OF RANGE REFERENCE UNITS LAB L506.0400 0.76-1.46 ng/dL Normal T4 FREE 0.83 DIRECT Performed By: #### L501.5200, L501.9520, L506.0400 #### [facility] [address] [place], [address] Observed: 06/26/2018 Status: F Source: [place] CULTURE, BLOOD (WB) 8:02 PM [facility] REPOSITORY BC No growth in 5 days. Performed By: #### M200.1000 #### [facility] [address] [place], [address] Observed: 06/26/2018 Status: F Source: [place] CULTURE, BLOOD (WB) 8:00 PM [facility] REPOSITORY BC No growth in 5 days. Performed By: #### M200.1000 #### [facility] [address] [place], [address] BLOOD GASES BY CPS Collected: 06/26/2018 Status: F Source: [place] 7:25 PM [facility] REPOSITORY TYPE CODE TESTS RESULT OUT OF RANGE REFERENCE UNITS LAB L9000.9990 Normal BLD GAS TYPE ART LAB L9001.1000 Normal SITE L Radial LAB L9001.1010 Normal LEYDI TEST POS LAB L9001.1050 O2 Normal Delivery Dev NRB Mask LAB L9001.1055 /min Normal LPM 15.0 LAB L9001.1104 Normal Results To ED LAB L9001.1105 Normal Time Given 1915 LAB L9001.1110 7.35-7.45 Low pH - I-STAT 7.28 LAB L9001.1210 35-45 mmHg Normal pCO2 - ISTAT 42.6 LAB L9001.1310 75-100 mmHG Normal PO2 I-STAT 83 LAB L9001.2300 22-26 mmol/L Low HCO3 ISTAT 19.9 LAB L9001.2400 -2 to +2 mmol/L Low BE ISTAT -7 LAB L9001.2415 mmol/L Normal TOTAL CO2 21 ISTAT LAB L9001.2425 95-99 % Normal SO2 ISTAT 95 Performed By: #### L9000.0800 #### [facility] Point of Care [address] [place] [address] CHEST 1 VIEW Observed: 06/26/2018 Status: F Source: [place] (PORTABLE) 6:56 PM [facility] REPOSITORY [facility] Imaging Services [address] [place] [address] Chest 1 View (Portable) MR#: [id number] Acct: [id number] Name: AICHA ROLLINS Rep #: [id number] : 1950 F 67 From: Yovany Mars MD PCP: Lul Patel MD Status: REG ER Study: Chest 1 View (Portable) Date of Exam: 06/26/18 Exam# [id number] Ordering Dr: Rashmi Sanz MD STUDY: X-RAY CHEST REASON FOR EXAM: Female, 67 years old. Seizure, now unresponsive. TECHNIQUE: Single AP portable supine view of the chest. The patient is mildly rotated to the right COMPARISON: PA and lateral chest x-ray August 13, 2017. FINDINGS: The lungs are normally expanded. There are ill-defined alveolar densities in the upper lung zones, greater on the right, and possibly in the medial right base, worrisome for pneumonia. Infiltrates secondary to aspiration might also have this appearance. Possible subcentimeter calcific granuloma versus pulmonary vessel seen end-on in the medial left base, projecting just lateral to the distal descending thoracic aorta. There is no demonstrated pleural abnormality. Normal size heart. Normal mediastinum and alis. Normal visualized pulmonary arteries. Normal visualized aortic arch and descending thoracic aorta. There are stable degenerative changes of the visualized thoracic spine. Normal visualized ribs, clavicles, and shoulders. There is no demonstrated abnormality of the visualized soft tissue structures of the upper abdomen. RAD/Chest 1 View (Portable) IMPRESSION: Bilateral infiltrates worrisome for pneumonia, predominating in the upper lobes. Electronically Signed: Steve Mars MD at 19:31 EST , Service support , CC: Rashmi Sanz MD; Lul Patel MD Chief Knowledge Officer: Signed BRAIN/HEAD WITHOUT Observed: 06/26/2018 Status: F Source: [place] CONTRAST 6:56 PM [facility] REPOSITORY [facility] Imaging Services [address] [place] [address] Brain/Head without Contrast MR#: [id number] Acct: [id number] Name: AICHA ROLLINS Rep #: [id number] : 1950 F 67 From: Akbar Jo MD PCP: Lul Patel MD Status: REG ER Study: Brain/Head without Contrast Date of Exam: 06/26/18 Exam# [id number] Ordering Dr: Rashmi Sanz MD STUDY: CT BRAIN WITHOUT CONTRAST REASON FOR EXAM: Female, 67 years old. Seizures RADIATION DOSAGE (If Supplied By Facility): CTDIvol = ( 44.99 ) mGy, DLP = ( 779.24 ) mGycm TECHNIQUE: Transaxial CT imaging of the brain was performed without administration of intravenous contrast material. Individualized dose optimization techniques were used for this CT. COMPARISON: February 17, 2018 FINDINGS: Normal soft tissue structures. Normal calvarium. Normal size ventricles and extra-axial spaces for the patient's age. Minor periventricular white matter ischemic changes.. Normal basal ganglia and thalami. Normal brainstem. Normal cerebellum. There is no intracranial hemorrhage. There are no findings of an acute ischemic infarction. Normal visualized paranasal sinuses. No significant change since prior exam CT/Brain/Head without Contrast IMPRESSION: Minor periventricular white matter ischemic changes MRI would be helpful for further evaluation if clinically warranted Electronically Signed: Akbar Jo MD at 21:02 EST , Service support , CC: Rashmi Sanz MD; Lul Patel MD Chief Knowledge Officer: Signed URINE DRUG SCREEN Collected: 06/26/2018 Status: F Source: [place] ([place]) 3:34 PM [facility] REPOSITORY TYPE CODE TESTS RESULT OUT OF RANGE REFERENCE UNITS LAB L505.0075 TO BE Normal CONFIRMED Result Comment: CONFIRMATORY TESTING FOR ALL POSITIVE URINE DRUG SCREEN RESULTS WILL ONLY BE SENT OUT UPON PHYSICIAN ORDER. VISTA Urine Drug Screen methods provide only preliminary analytical test results. A more specific alternate chemical method must be used in order to obtain a confirmed analytical result. Gas chromatography/mass spectrometery (GC/MS) is the preferred confirmatory method. Clinical consideration and professional judgement should be applied to any drug of abuse test result, particularly when preliminary positive results are used. URINE TCA TESTING MUST BE ORDERED SEPARATELY. USE TEST MNEMONIC: [facility] LAB L505.5005 VISTA UDS PH 6 Normal LAB L505.5015 <1000 ng/mL AMPHETAMINES Normal NEGATIVE LAB L505.5025 < 200 ng/mL BARBITIURATES Normal NEGATIVE LAB L505.5035 < 200 ng/mL BENZODIAZIPINE Normal NEGATIVE LAB L505.5045 < 300 ng/mL COCAINE Normal NEGATIVE LAB L505.5055 < 500 ng/mL ECSTACY Normal NEGATIVE LAB L505.5065 < 300 ng/mL METHADONE Normal NEGATIVE LAB L505.5075 < 300 ng/mL OPIATES Normal NEGATIVE LAB L505.5085 < 25 ng/mL PCP Normal NEGATIVE LAB L505.5095 < 50 ng/mL THC Normal NEGATIVE Performed By: #### L505.5000 #### [facility] [place], [address] URINALYSIS, COMPLETE Collected: 06/26/2018 Status: F Source: [place] 3:34 PM [facility] REPOSITORY Order Comment: How was Urine Obtained? CATHETER SPECIMEN TYPE CODE TESTS RESULT OUT OF RANGE REFERENCE UNITS LAB L400.3000 Yellow COLOR Normal Yellow LAB L400.3050 Clear Normal CLARITY Clear LAB L400.3200 Normal mg/dl Normal GLUCOSE, UR Normal LAB L400.3300 Negative mg/dL Normal BILIRUBIN URINE Negative LAB L400.3400 Negative mg/dl High 15 KETONE UR LAB L400.3465 1.002-1.030 Normal SP.GR. DIPSTX 1.020 LAB L400.3550 5.0 - 8.0 pH UR Normal 6.0 LAB L400.3600 Negative mg/dl High PROT 30 DIPSTX LAB L400.3700 Normal mg/dl Normal UROBILI Normal LAB L400.3750 Negative Normal NITRITE UR Negative LAB L400.3780 Negative /ul Normal OCCULT BLOOD-UR Negative LAB L400.3800 Negative /ul LEUK Normal ESTERASE Negative LAB L400.4050 0-5 /hpf WBC 0 Normal SEEN LAB L400.4100 0-5 /hpf 0 Normal RBC-UA SEEN LAB L400.4150 5-10 /hpf SQUAM 0 Normal EPI SEEN LAB L400.4300 None Seen /hpf 0 Normal BACTERIA SEEN LAB L400.4350 <or=2+ /hpf 0 Normal MUCUS, URINE SEEN Performed By: #### L400.0001 #### [facility] [address] [place], [address] BASIC METABOLIC Collected: 04/07/2018 Status: F Source: [place] PROFILE (BMP) 11:52 AM [facility] REPOSITORY TYPE CODE TESTS RESULT OUT OF RANGE REFERENCE UNITS LAB L501.0100 74-106 mg/dL Normal GLU 92 Result Comment: Please note revised GLUCOSE reference range effective 2017. LAB L501.1000 7-18 mg/dL Low BUN 5 LAB L501.1100 0.55-1.02 mg/dL Normal CREAT,SERUM 0.81 Result Comment: The validity of the calculated GFR AND GFRAA in patients over 70 years has not been determined. Clinical correlation is essential. LAB L501.1110 >60 mL/min Normal EST GFR 75 Result Comment: Non- GFR Calc LAB L501.1115 >60 mL/min Normal EST GFR - AA 91 Result Comment: GFR Calc LAB L501.1300 10-20 RATIO Low BUN/CRE 6.2 LAB L501.2200 8.5-10.1 mg/dL Normal CA 9.2 LAB L501.5300 136-145 mmol/L Normal NA 139 LAB L501.5600 3.5-5.1 mmol/L Normal K 4.2 LAB L501.5900 98-107 mmol/L Normal CL 102 LAB L501.6100 21.0-32.0 mmol/L Normal CO2 27.0 LAB L501.6200 5-15 Normal GAP 10 Performed By: #### L500.2500 #### [facility] [address] [place], [address] CONSULTATION Observed: 03/01/2018 Status: F Source: [place] 12:32 AM [facility] REPOSITORY [facility] Medical Records Department [address] [place] [address] Consultation 02/17/18 1308 MR#: [id number] Acct: [id number] Name: AICHA ROLLINS Rep #: [id number] : 1950 67 From: Jeannette Wilson MD PCP: Lul Patel MD Status: DIS IN Y Location: [place] [id number] Problem List (1) Seizure Status: Acute Reason for Consult Date of Consultation: 02/17/18 Reason for Consultation: Seizures History of Present Illness: The patient is a 67 year old CF with PMH HTN, RA, Depression/anxiety, Narcolepsy, Hepatitis C, Von Willebrand disease admitted with seizures. History could not be obtained from the patient and history is obtained from medical records and charts. Per patient she does not remember the reason she is in the hospital, is drowsy at present but is arousable and follows VC. Per documentation, patient was in the bed around 1 AM (02/17/18) when she let our a scream and the noticed whole body GTCs, that lasted for about 10 minutes, was postictal, had another seizure lasting for about 5 minutes, had tongue bite and continued to be post ictal on admission. Per documentation she had first seizure in 2015, then had another one about 8 months ago, was not on any AED at home, was loaded with Keppra 1 g on arrival. At present there is no documentation of fever, VALVERDE, visual disturbances, focal motor weakness or sensory loss. CT head done on admission reported negative. Past Medical History Past Medical History (Chronic Problems): Chronic Problems Anxiety and depression (Chronic) Narcolepsy (Chronic) Hep C (Chronic) Von Willebrand disease (Chronic) Gastroesophageal reflux disease (Chronic) Rheumatoid arthritis (Chronic) Allergies codeine Allergy (Verified 02/17/18 03:11) Hives morphine Allergy (Verified 02/17/18 03:11) Hives Opioids - Morphine Analogues Allergy (Verified 02/17/18 03:11) Hives amicar Adverse Reaction (Uncoded 02/17/18 03:11) Other sassafrass Adverse Reaction (Uncoded 02/17/18 03:11) Nausea/Vom/Diarrhea Home Medications: Ambulatory Orders Medication Instructions Recorded Surgical History: - - L Breast biopsy, D AND C, Cholecystectomy, Appendectomy. 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 Lives: Spouse/ Significant Other Smoking Status: Former smoker Tobacco Use: Cigarettes Drugs: - - could not be obtained since patient is drowsy - *Family History Maternal History Items: Cancer - utine cancer Paternal History Items: No pertinent history Review of Systems Constitutional: Reports: - - ROS could not be obtained since pateint is drowsy Patient Problems: Active and Suspected Problems Seizure (Acute) - Physical Exam General: - - drowsy HEENT: Normocephalic Neck: Supple Lungs: Clear to auscultation Cardiovascular: Normal S1, Normal S2 Abdomen: Bowel Sounds Present Extremities: No cyanosis Musculoskeletal: No Tenderness to Palpation of Joints or Extremities Neurological: - - drowsy, easily arousable, CN 2-12 grossly intact, moves all 4 extremities, sensory/cerebellar/gait could not be assessed, limited Neurology examination, Reflexes + B/L B/S/T/K/A, no NR, no Brudzincki or Kernig's sign Vital Signs Temp Pulse Resp BP Pulse Ox 97.9 F 63 18 165/88 H 99 02/17/18 11:03 02/17/18 11:03 02/17/18 11:03 02/17/18 11:03 02/17/18 11:03 Oxygen Flow Rate (L/min) 2 Oxygen Delivery Method Nasal Cannula Weight: 68 kg Body Mass Index (BMI) 24.9 Intake and Output for Last 24 Hours Intake Total 669 / 669 Balance 669 / 669 Laboratory Tests Past 24 Hrs Magnesium 2.0 TSH 3.34 Assessment/Plan All Active Problems Seizure (Acute) Influenza A (Acute) Mental status change (Acute) The patient is a 67 year old CF with PMH HTN, RA, Depression/anxiety, Narcolepsy, Hepatitis C, Von Willebrand disease admitted with seizures. History could not be obtained from the patient and history is obtained from medical records and charts. Per patient she does not remember the reason she is in the hospital, is drowsy at present but is arousable and follows VC. Per documentation, patient was in the bed around 1 AM (02/17/18) when she let our a scream and the noticed whole body GTCs, that lasted for about 10 minutes, was postictal, had another seizure lasting for about 5 minutes, had tongue bite and continued to be post ictal on admission. Per documentation she had first seizure in 2015, then had another one about 8 months ago, was not on any AED at home, was loaded with Keppra 1 g on arrival. At present there is no documentation of fever, VALVERDE, visual disturbances, focal motor weakness or sensory loss. CT head done on admission reported negative. Impression Seizure R/O PRES Plan -Await MRI brain w/w/o contrast -Await EEG -Keppra 750 mg IV BID -Labs azjunsfd-WCQ-22.5, NA-134, UA neg, UDS-negative -Better BP control, will defer to primary team. -Seizure precautions -No driving for 6 months -Further medical management per primary team -GI/DVT prophylaxis -PT/OT -Fall precautions -Further medical management per primary team -Please follow up with Neurology as outpatient in about 4- 6 weeks -Please call with questions if any -Thank you for allowing us to participate in patient's care and management I spent 60 minutes taking history, doing physical examination, reviewing medical records, coordinating care and counseling the patient. Code Visit Inpatient E AND M: [id number] Init Hosp L3 03/01/18 0032 <Electronically signed by Jeannette Wilson MD> Date Jeannette Wilson MD Cosigner Signature (if applicable): Date CC: Renetta Wilson MD; Lul Patel MD Signed ELECTROENCEPHALOGRAM Observed: 03/01/2018 Status: F Source: [facility] 12[facility] AM [facility] Pulmonary Services/Neurology [address] [place] [address] MR#: [id number] Acct: [id number] Name: AICHA ROLLINS Rep #: [id number] : 1950 67 From: Jeannette Wilson MD Referring Dr: Jennifer Coleman Status: DIS IN Ordering Dr: Date: Location: [place] [address] Sex: F C - Electroencephalogram Date of service 02/17/18 History EEG is being done in this 67 yr F to rule out seizures EEG Description: This is an 18 channel EEG with 10-20 lead placement system. Bipolar montages, Referential and Circumferential montages were reviewed. Photic stimulation and Hyperventilation were performed. The posterior dominant background rhythm was not present. Photo stimulation elicited normal driving response but no abnormal photoparoxysmal response, Hyperventilation did not elicit any abnormal photoparoxysmal response. Sleep was identified. The generalized background rhythm was in the theta frequency range of 7 Hz. Episodes of generalized delta wave frequency slowing noted intermittently during the record. There was no epileptiform discharges or electrographic seizures noted during this recording. EEG Interpretation This is an abnormal EEG due to the presence of mild generalized slowing. This can be seen in generalized cerebral dysfunction like metabolic/toxic encephalopathy. Clinical correlation is advised. There is no epileptiform discharges or electrographic seizures noted during the record. 03/01/18 0032 <Electronically signed by Jeannette Wilson MD> Date Jeannette Wilson MD CC: Renetta Wilson MD; Jennifer Coleman; Lul Patel MD Date Dictated: 02/17/18 1432 Date Transcribed: 02/17/181431 Chief Knowledge Officer: CRISTO Signed BASIC METABOLIC Collected: 02/27/2018 Status: F Source: [facility] PROFILE (BMP) 12:39 PM [facility] REPOSITORY Order Comment: Order Date: 02/27/18 Order Info: 0667-1 - BMP TYPE CODE TESTS RESULT OUT OF RANGE REFERENCE UNITS LAB L501.0100 74-106 mg/dL High GLU 119 Result Comment: Fasting Glucose result from 100 to 125 mg/dL suggests IMPAIRED HOMEOSTASIS per A.D.A. criteria. Please note revised GLUCOSE reference range effective 2017. LAB L501.1000 7-18 mg/dL Normal BUN 8 LAB L501.1100 0.55-1.02 mg/dL Normal CREAT,SERUM 0.88 Result Comment: The validity of the calculated GFR AND GFRAA in patients over 70 years has not been determined. Clinical correlation is essential. LAB L501.1110 >60 mL/min Normal EST GFR 68 Result Comment: Non- GFR Calc LAB L501.1115 >60 mL/min Normal EST GFR - AA 82 Result Comment: GFR Calc LAB L501.1300 10-20 RATIO Low BUN/CRE 9.0 LAB L501.2200 8.5-10.1 mg/dL Normal CA 9.6 LAB L501.5300 136-145 mmol/L Normal NA 143 LAB L501.5600 3.5-5.1 mmol/L Normal K 3.5 LAB L501.5900 98-107 mmol/L Normal CL 105 LAB L501.6100 21.0-32.0 mmol/L Normal CO2 31.0 LAB L501.6200 5-15 Normal GAP 7 Performed By: #### L500.2500 #### [facility] [address] [place], [place], [address] VITAMIN D,25 HYDROXY Collected: 02/27/2018 Status: F Source: [facility] 12:39 PM [facility] REPOSITORY Order Comment: Order Date: 10/31/17 Order Info: [id number] - VITD25 TYPE CODE TESTS RESULT OUT OF RANGE REFERENCE UNITS LAB L506.1000 29.95-100.01 ng/mL Normal Vitamin D 51.9 25-OH Result Comment: Vitamin D 25(OH) Status Range Deficiency <20 ng/mL (50nmol/L) Insuffciency 20 - 30 ng/mL (50 - 75 nmol/L) Sufficiency 30 - 100 ng/mL (75 - 250 nmol/L) Toxicity >100 ng/mL (>250 nmol/L) Performed By: #### L506.1000 #### [facility] [address] [place], [address] 12 LEAD ELECTROCARDIOGRAM Observed: 02/18/2018 Status: F Source: [facility] 2:19 PM [facility] REPOSITORY [facility] Cardiovascular Services [address] [place] [address] 12 Lead EKG 02/17/18 0322 MR#: [id number] Acct: [id number] Name: AICHA ROLLINS Makenzie Rep #: [id number] : 1950 67 From: Jose Enrique Prince MD Attending Dr: Jennifer Coleman Status: DIS IN Ordering Dr: Brendan Angel DO Date: 02/17/18 Location: [facility] Sex: F C Admitted: 02/17/18 Test Reason : SEIZURE Blood Pressure : / mmHG Vent. Rate : 086 BPM Atrial Rate : 086 BPM P-R Int : 160 ms QRS Dur : 082 ms QT Int : 366 ms P-R-T Axes : 062 -29 042 degrees QTc Int : 437 ms Normal sinus rhythm Normal ECG Confirmed by JOSE ENRIQUE PRINCE MD ([id number]), magazine editor MERLYN KAPLAN ([id number]) on 02/18/2018 2:18:41 PM Referred By: MARISOL Confirmed By:JOSE ENRIQUE PRINCE MD 02/18/18 1418 Date Jose Enrique Prince MD CC: Jennifer Coleman; Lul Patel MD; Brendan Angel DO Signed DISCHARGE SUMMARY Observed: 02/18/2018 Status: F Source: [facility] 1:43 PM [facility] REPOSITORY [facility] Medical Records Department [address] [place] [address] Discharge Summary 02/18/18 1235 MR#: [id number] Acct: [id number] Name: AICHA ROLLINS Rep #: [id number] : 1950 67 From: Kevin QUEZADA PCP: Lul Patel MD Status: ADM IN Y Location: [place] [address] ADDENDUM by Jennifer Coleman on 02/18/18 at 1343 Code Visit ATTENDING PHYSICIAN DISCHARGE NOTE: I have seen and examined the patient independently and agree with the assessment, plan, history per Kevin Iglesias as noted. Discharge Diagnoses: (1) Generalized Tonic-Clonic Seizure w/ Prior Seizure history not on AED (2) Moderate periventricular white matter disease with prominent involvement parieto-occipital regions, chronic versus PRES, unable to differentiate (Planned repeat MRI at outpatient follow-up with Neurology per Dr. Wilson request) (3) Rheumatoid Arthritis (4) Hypertension (5) Von Willebrand disease (6) Hepatitis C, Chronic (7) Depression and Anxiety (8) Narcolepsy (9) GERD Discharge Summary: The patient is a 67 y/o F w/ PMHx: HTN, Hx Hepatitis C, Von Willebrand Disease, Depression and Anxiety, Narcolepsy, RA, History prior seizure activity no on AEDs who presented to the [facility] ED on 02/17/18 w/ history of onset seizure activity starting at 1 am with onset screaming, followed by generalized TC seizure lasting 10 minutes with postictal following with repeat seizure activity with tongue biting and again prolonged post-ictal phase. Seizure witnessed with postictal state. Improved mental status upon PCU transition. CT head without acute intracranial pathology. Lab work-up unremarkable including UTox and UA. Admitted to the PCU, maintained on telemetry in PCU on seizure precautions, EEG obtained w/ generalized slowing without any active seizure evidence, MRI brain w/ moderate periventricular white matter disease with prominent involvement of the parieto-occipital regions raising possible question of DE yes however not market clinical correlation, no acute evidence of infarct, no enhancing lesions, TSH and mag normal. Loaded w/ Keppra in ED, transitioned to IV 750 mg BID per discussion with Neurology with then transition to liquid version once clinically improved and appropriate for oral intake. Neurology consulted, followed, felt MRI likely chronic changes with encouragement of appropriate BP with close PCP follow- up with planned repeat MRI at follow-up w/ Neurology. Patient discharged to home in stable condition, improved with parameters on driving, bathing, equipment usage. Discharge Time: > 35 Minutes DAY OF DISCHARGE PROGRESS NOTE: Subjective: Patient without acute event overnight per self and nursing report. Patient alert and interactive this AM, no further seizure activity. Restarted on home medications. Patient denies fever, chills, nausea, emesis, abdominal pain, chest pain or dyspnea. Patient agreeable to discharge to home in stable improved condition without any further seizure activity. Patient will be discharged with follow-up with primary care physician within 3-5 days in addition to Neurology in 2 weeks. Patient given rx for liquid keppra upon discharge and confirmed available at her pharmacy. Objective: T 99.1, heart rate 82, BP 132/60, respiratory rate 18, 96% on room air. Physical Examination: General: awake, alert, oriented x 3 and cooperative, seated upright in the bedside chair, NAD. Skin: normal color, turgor, no icterus, cyanosis. HEENT: AT/NC, EOMI, PERRLA, MMM. Lungs: CTA bilaterally, moderate effort, mild decrease BL bases, no rales, ronchi or wheezing; Heart: Regular rate and rhythm; no gallop, rub audible. Neurological: patient awake, alert, oriented x 3; cognitive function appears baseline, improved significantly from presentation; pupils equally reactive to light and accomodation; cranial nerves II-XII grossly normal, moving all 4 extremities, strength mildly to moderately globally decreased. Psychiatric: affect appears normal, no acute evidence of depressive or anxiety feelings. Assessment and Plan: Please see hospital summary above. Inpatient E AND M: [id number] Disch Hosp 02/18/18 1343 <Electronically signed by Jennifer Coleman > Date Jennifer Coleman cc: DAMIEN Iglesias; Jennifer Coleman; Lul Patel MD * Signed Discharge Date and Diagnosis - Problem List Patient Problems: Active and Suspected Problems Seizure (Acute) Date of Admission: 02/17/18 Date of Discharge: 02/18/18 - Primary Discharge Diagnosis Active and Suspected Problems Generalized tonic/clonic Seizure (Acute) RPES on MRI HTN hx RA hx von willebrand dz chronic hep c depression/anxiety Narcolepsy gerd - Secondary Discharge Diagnosis Chronic Problems Anxiety and depression (Chronic) Narcolepsy (Chronic) Hep C (Chronic) Von Willebrand disease (Chronic) Gastroesophageal reflux disease (Chronic) Rheumatoid arthritis (Chronic) Hospital Course and Treatment Imaging Results: CT/Brain/Head without Contrast IMPRESSION: Chronic involutional changes of the brain. There is no acute intracranial pathology. There is no significant interval change. EEG Interpretation This is an abnormal EEG due to the presence of mild generalized slowing. This can be seen in generalized cerebral dysfunction like metabolic/toxic encephalopathy. Clinical correlation is advised. There is no epileptiform discharges or electrographic seizures noted during the record. MRI/Brain W/WO Contrast IMPRESSION: Moderate periventricular white matter disease with prominent involvement of the parieto-occipital regions raising question of PRES however clinical correlation recommended No evidence for acute infarct. No enhancing lesions following contrast demonstration Consults: Neuro - Steve Operations: None Procedures: Electroencephalogram Summary of Care Provided: Physical exam on day of discharge: General: Resting comfortably NAD Psych: A/Ox3 normal affect HEENT: PEARRLA AT NC Neck: Supple NT CV: RRR no m/t/r/g/h Resp: CTA Abd: [id number] Soft NT no guarding or rigidity Ext: DP2+= no edema Skin: W/D normal turgor Lymph/Heme: No active bleeding or adenopathy Neuro: CN2-12 intact Hospital course: The patient is a 67 year old F with a hx of two prior seizures in 2016, 2017, not on antiepileptic medications, also hx of von willebrand, GERD, RA, narcolepsy, chronic hep c, anxiety and depression, who presented to the ER with witnessed seizure at home that was described as a whole body tonic clonic seizure lasting about 10 mins, and then a second seizure maybe 5 mins in length. Pt bit her tongue, was confused afterwards with increased lethargy. She came to the ER and was loaded with keppra 1000 mg, admitted to PCU with neuro consult. She remained post ictal the following day. An EEG showed generalized slowing. MRI demonstrated possible RPES. Neuro recommended that she continue PO keppra at 750 BID and to have improved BP control, and that she would need to follow up in 4-6 weeks with a repeat MRI. She recovered from her post ictal state and was discharged home in stable condition. Please also follow up with your PCP. This patient was seen by Kevin Iglesias PA-C under the supervision of Dr. Coleman. [] Discharge Diet: Low fat/ Low Cholesterol, 2000 mg Sodium Diet Discharge Activity: May Not Drive, - - Do not operative heavy machines. Do not take bath or swim alone. You need to review parameters with liberalization of these with Neurology at follow-up. May resume sexual activity in: No Restrictions Weight Bearing Status: Weight bearing as tolerated Call your doctor if you observe: Fever of 101 or Higher, Inability to urinate, Inability to have a bowel movement, Shortness of breath, Dizziness, Fainting spells, Chest pain, Uncontrolled pain, - - Breakthrough Seizure activity. Home Medications: Medications to take at Discharge Lisinopril [Zestril] 10 mg PO DAILY 05/18/16 Omeprazole [Prilosec] 40 mg PO BID 05/18/16 predniSONE tablet 10 mg PO DAILY PRN 05/18/16 Potassium Chloride [K-Dur] 20 meq PO PRN PRN 02/17/18 levETIRAcetam tablet [Keppra tablet] 750 mg PO BID #60 tab 02/18/18 Following Prescrptions Were Given to Patient: levETIRAcetam tablet [Keppra tablet] 750 mg PO BID #60 tab Primary Care Physician: Robert Patel MD [Primary Care Provider] - Please follow up with your Primary Care Physician in: Follow- up within 3-5 days to review admission. Please Follow Up With: Jeannette Wilson MD When: Follow-up in 2 weeks per his request. Please Follow Up With: Robert Patel MD When: 3-5 Days Patient Instructions: Levetiracetam Oral tablet, Treating Epilepsy: Medications, Self-Care for Epilepsy, Epilepsy: Safety During a Seizure Disposition: Home Minutes spent on discharge:: 35 Patient Condition:: Stable Medical Necessity - Tobacco Use Smoking Status: Former smoker Tobacco Use: Cigarettes Meaningful Use Info Meaningful Use Diagnoses (Choose all that apply): None applicable 02/18/18 1242 <Electronically signed by Kevin QUEZADA> Date Kevin QUEZADA 02/18/18 1331<Electronically signed by Jennifer Coleman > Cosigner Signature (if applicable): Date Jennifer Coleman CC: DAMIEN Iglesias; Jennifer Coleman; Lul Patel MD Signed DISCHARGE INSTRUCTION Observed: 02/18/2018 Status: F Source: [facility] 1:31 PM [facility] REPOSITORY [facility] Medical Records Department [address] [place] [address] Instructions for Home/Discharge Instructions 02/18/18 1205 MR#: [id number] Acct: [id number] Name: AICHA ROLLINS Rep #: [id number] : 1950 67 From: Jennifer Coleman PCP: Lul Patel MD Status: ADM IN ADDENDUM by Jennifer Coleman on 02/18/18 at 1331 Correction: Changed Keppra Liquid equivalent 750 mg po BID (quantity requested for 1 month supply) which has been filled at [facility] Date Jennifer Coleman cc: Renetta Wilson MD; Lul Patel MD * Signed - Discharge Diagnoses Current Active Problems: Current Active and Chronic Problems (1) Generalized Tonic-Clonic Seizure w/ Prior Seizure history not on AED (2) Rheumatoid Arthritis (3) Hypertension (4) Von Willebrand disease (5) Hepatitis C, Chronic (6) Depression and Anxiety (7) Narcolepsy (8) GERD You will use the following diet at home:: Cardiac Your food should be the consistency of: Regular Your liquids should be the consistency of: Regular/Thin Discharge Activity: May Not Drive, - - Do not operative heavy machines. Do not take bath or swim alone. You need to review parameters with liberalization of these with Neurology at follow-up. May resume sexual activity in: No Restrictions Weight Bearing Status: Weight bearing as tolerated Call your doctor if you observe: Fever of 101 or Higher, Inability to urinate, Inability to have a bowel movement, Shortness of breath, Dizziness, Fainting spells, Chest pain, Uncontrolled pain, - - Breakthrough Seizure activity. Instructions: Treating Epilepsy: Medications, Self-Care for Epilepsy, Epilepsy: Safety During a Seizure, Levetiracetam Oral tablet Additional Instructions: Please follow-up with Neurology, Dr. Wilson in 2 weeks for repeat assessment and set-up for repeat MRI. If you have any questions or concerns you may also contact his office. Please continue your blood pressure regimen to assure blood pressure at goal which may be reviewed with your primary care physician. Allergies/Adverse Reactions: Allergies codeine Allergy (Verified 02/17/18 03:11) Hives morphine Allergy (Verified 02/17/18 03:11) Hives Opioids - Morphine Analogues Allergy (Verified 02/17/18 03:11) Hives amicar Adverse Reaction (Uncoded 02/17/18 03:11) Other sassafrass Adverse Reaction (Uncoded 02/17/18 03:11) Nausea/Vom/Diarrhea Medications to take at Discharge Lisinopril [Zestril] 10 mg PO DAILY 05/18/16 Omeprazole [Prilosec] 40 mg PO BID 05/18/16 predniSONE tablet 10 mg PO DAILY PRN 05/18/16 Potassium Chloride [K-Dur] 20 meq PO PRN PRN 02/17/18 levETIRAcetam tablet [Keppra tablet] 750 mg PO BID #60 tab 02/18/18 The following prescriptions were given: levETIRAcetam tablet [Keppra tablet] 750 mg PO BID #60 tab Primary Care Physician: Robert Patel MD [Primary Care Provider] - Please follow up with your Primary Care Physician in: Follow- up within 3-5 days to review admission. Test Results: Test results from this visit will be discussed in further detail at your follow-up appointment, if applicable. Please Follow Up With: Jeannette Wilson MD When: Follow-up in 2 weeks per his request. Proposed Discharge Date: 02/18/18 02/18/18 1210 <Electronically signed by Jennifer Coleman > Date Jennifer Coleman CC: Renetta Wilson MD; Lul Patel MD BASIC METABOLIC Collected: 02/18/2018 Status: F Source: [facility] PROFILE (BMP) 6:10 AM [facility] REPOSITORY TYPE CODE TESTS RESULT OUT OF RANGE REFERENCE UNITS LAB L501.0100 74-106 mg/dL Normal GLU 94 Result Comment: Please note revised GLUCOSE reference range effective 2017. LAB L501.1000 7-18 mg/dL Low BUN 5 LAB L501.1100 0.55-1.02 mg/dL Normal CREAT,SERUM 0.61 Result Comment: The validity of the calculated GFR AND GFRAA in patients over 70 years has not been determined. Clinical correlation is essential. LAB L501.1110 >60 mL/min Normal EST GFR 104 Result Comment: Non- GFR Calc LAB L501.1115 >60 mL/min Normal EST GFR - AA 126 Result Comment: GFR Calc LAB L501.1255 ml/min Normal Estimated CRCL 49.80 LAB L501.1300 10-20 RATIO Low BUN/CRE 8.2 LAB L501.2200 8.5-10 mg/dL Normal .1 CA 8.6 LAB L501.5300 136-14 mmol/L Normal 5 NA 143 LAB L501.5600 3.5-5. mmol/L Normal 1 K 3.8 LAB L501.5900 98-107 mmol/L High CL 110 LAB L501.6100 21.0-3 mmol/L Normal 2.0 CO2 28.0 LAB L501.6200 5-15 Normal GAP 5 Performed By: #### L500.2500 #### [facility] [address] [place], [address] BRAIN W/WO CONTRAST Observed: 02/17/2018 Status: F Source: [place] 6:18 PM [facility] REPOSITORY [facility] Imaging Services [address] [place] [address] Brain W/WO Contrast MR#: [id number] Acct: [id number] Name: AICHA ROLLINS Makenzie Rep #: [id number] : 1950 F 67 From: Akbar Jo MD PCP: Lul Patel MD Status: ADM IN Study: Brain W/WO Contrast Date of Exam: 02/17/18 Exam# [id number] Ordering Dr: Kevin Iglesias STUDY: MRI BRAIN WITH AND WITHOUT CONTRAST REASON FOR EXAM: Female, 67 years old. Seizures TECHNIQUE: Standardized multiplanar fat and water weighted pulse sequences were obtained. 7 ml of Gadavist contrast material was administered intravenously for the contrast portion of the examination. COMPARISON: MRI on May 18, 2016, brain CT on February 17, 2018 FINDINGS: Normal size of the ventricles and extra-axial spaces for the patient's age. Nonspecific periventricular white matter ischemic changes with most pronounced involvement of the parieto-occipital regions raising question of PRES however clinical correlation is recommended. No restricted diffusion to suggest acute infarct. Normal bilateral basal ganglia. Normal thalami. There is no extra-axial fluid accumulation. Normal flow voids within the major intracranial circulation suggesting patency by spin echo criteria. Normal venous enhancement. There is no enhancing intra-axial or extra-axial abnormality. Normal sella turcica, pituitary gland, infundibular stalk, optic chiasm and hypothalamus. Normal tectal plate and pineal gland. Normal midbrain, shar and medulla. Normal cerebellum. Normal basal cisterns. Normal bilateral temporal bones. Normal bilateral internal auditory canals. No demonstrated orbital abnormality, within the constraints of a routine brain study. Mild mucosal thickening of the ethmoid air cells.. Normal calvarium and skull base. Normal visualized soft tissue structures. Normal visualized upper cervical spine. Findings are similar to that seen on prior study MRI/Brain W/WO Contrast IMPRESSION: Moderate periventricular white matter disease with prominent involvement of the parieto-occipital regions raising question of PRES however clinical correlation recommended No evidence for acute infarct. No enhancing lesions following contrast demonstration Electronically Signed: Akbar Jo MD at 20:00 EDT , Service support , CC: DAMIEN Iglesias; Lul Patel MD Chief Knowledge Officer: Signed MAGNESIUM Collected: 02/17/2018 Status: F Source: JHONY 7:13 AM [facility] REPOSITORY TYPE CODE TESTS RESULT OUT OF RANGE REFERENCE UNITS LAB L501.5200 1.6-2.6 mg/dL Normal MG 2.0 Performed By: #### L501.5200, L501.9520 #### [facility] [address] [place], [address] THYROID STIM HORMONE Collected: 02/17/2018 Status: F Source: JHONY (TSH) 7:13 AM [facility] REPOSITORY TYPE CODE TESTS RESULT OUT OF RANGE REFERENCE UNITS LAB L501.9520 0.358-3.74 uIU/mL Normal TSH 3.34 Performed By: #### L501.5200, L501.9520 #### [facility] [address] [place], [address] HISTORY AND PHYSICAL Observed: 02/17/2018 Status: F Source: JHONY EXAM 5:28 AM [facility] REPOSITORY [facility] Medical Records Department [address] [place] [address] History and Physical 02/17/18 0510 MR#: [id number] Acct: [id number] Name: AICHA ROLLINS Rep #: [id number] : 1950 67 From: Edy Amezcua MD PCP: Lul Patel MD Status: REG ER Y Location: ED Problem List (1) Anxiety and depression Status: Chronic (2) Narcolepsy Status: Chronic (3) Von Willebrand disease Status: Chronic (4) Gastroesophageal reflux disease Status: Chronic Qualifiers: (5) Rheumatoid arthritis Status: Chronic Qualifiers: (6) Mental status change Status: Acute (7) Seizure Status: Acute History of Present Illness Date of Admission: 02/17/18 Chief Complaint: seizure The patient is a 67 year old female patient presents to the ER following a witnessed seizure at home. Patient was in bed around 1 AM when she let out a scream and the noticed whole body tonic-clonic seizure activity that lasted about 10 minutes. She was confused afterwards and did not recover completely. He reports that she had another seizure lasting about 5 minutes. Patient was noted to have bitten her tongue and noted blood from the mouth. Per patient first had a seizure in 2016 and then had another one about 8 months ago but is currently not on any seizure medications. She was previously evaluated for seizure disorder by neurology but EEG was unable to confirm this and therefore no medications were initiated for seizure. Patient has not been ill recently. She has a history of hypertension, GERD, hepatitis C, questionable MS and von Willebrand's disease. Patient is a poor historian at this time and remains it what appears to be a post ictal state. Past Medical History Past Medical History (Chronic Problems): Chronic Problems Anxiety and depression (Chronic) Narcolepsy (Chronic) Hep C (Chronic) Von Willebrand disease (Chronic) Gastroesophageal reflux disease (Chronic) Rheumatoid arthritis (Chronic) Allergies codeine Allergy (Verified 02/17/18 03:11) Hives morphine Allergy (Verified 02/17/18 03:11) Hives Opioids - Morphine Analogues Allergy (Verified 02/17/18 03:11) Hives amicar Adverse Reaction (Uncoded 02/17/18 03:11) Other sassafrass Adverse Reaction (Uncoded 02/17/18 03:11) Nausea/Vom/Diarrhea Home Medications: Ambulatory Orders Medication Instructions Recorded Surgical History: - - L Breast biopsy, D AND C, Cholecystectomy, Appendectomy. 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 Smoking Status: Former smoker - *Family History Maternal History Items: Cancer - utine cancer Paternal History Items: No pertinent history Review of Systems Unable to obtain accurate/complete ROS d/t: patient is confused and not able answer questions coherently VTE Information - Inpt Only VTE Present on Admission: No VTE Mechan Device Prophylaxis: None VTE Pharm Prophylaxis ordered?: Yes Patient Problems: Active and Suspected Problems Seizure (Acute) - Physical Exam General: Confused HEENT: Atraumatic, Normocephalic, Sluggish Pupils, - - dried blood around mouth from tongue bite Neck: Supple Lungs: Clear to auscultation, Normal air movement Cardiovascular: Regular rate, Regular Rhythm, Normal S1, Normal S2, No murmurs Abdomen: Bowel Sounds Present, Soft, Non Tender Extremities: No edema, Capillary Refill Less than 3 Seconds Skin: No rashes Musculoskeletal: No Tenderness to Palpation of Joints or Extremities Neurological: Neuro grossly intact Psych/Mental Status: - - difficult to arouse, but she was able to make one word answers and then she would quickly fall back to sleep Vital Signs Temp Pulse Resp BP Pulse Ox 98.3 F 89 21 H 139/66 H 97 02/17/18 02:58 02/17/18 05:05 02/17/18 05:05 02/17/18 05:05 02/17/18 05:05 Oxygen Flow Rate (L/min) 4 Oxygen Delivery Method Room Air Weight: 164 lb 0.383 oz Body Mass Index (BMI) 27.3 Finger Stick Blood Glucose 117 Laboratory Tests Past 24 Hrs WBC RBC Hgb Hct MCV MCH MCHC RDW RDW Differential Assessment/Plan All Active Problems Seizure (Acute) Influenza A (Acute) Mental status change (Acute) Chronic Problems Anxiety and depression (Chronic) Narcolepsy (Chronic) Hep C (Chronic) Von Willebrand disease (Chronic) Gastroesophageal reflux disease (Chronic) Rheumatoid arthritis (Chronic) Plan - admit to PCU - consult neurology to evaluate and treat for seizure disorder. - neuro checks q 4hrs - continue Keppra initiated in the ER - EEG, seizure precautions - hold routine PO medications for now - LMWH for DVT prophylaxis Code Visit Inpatient E AND M: 23096 Init Hosp L3 02/17/18 0528 <Electronically signed by Edy Amezcua MD> Date [facility] Signature: Date (if applicable) CC: Lul Patel MD; Edy Amezcua MD Signed EMERGENCY DEPARTMENT Observed: 02/17/2018 Status: F Source: [place] SUMMARY 4:14 AM [facility] Medical Records Department [address] [place] [id number] Emergency Department Summary 02/17/18 0410 MR#: [id number] Acct: [id number] Name: AICHA ROLLINS Rep #: [id number] : 1950 67 From: Brendan Angel DO PCP: Lul Patel MD Status: REG ER - ER Visit Summary Date of Service: 02/17/18 Chief Complaint: [Seizure] History of Present Illness: The patient is a 67 F [presents the emergency department with complaint of seizure. The history comes from the patient's as patient is somewhat somnolent and not answering questions at this time. Patient apparently was in bed around 1 AM when she let out a scream and the noticed whole body tonic-clonic seizure activity that lasted about 10 minutes. Patient afterwards was confused and did not recover completely and had another seizure lasting about 5 minutes. Patient was noted to have bitten her tongue and noted blood from the mouth. Per patient first had a seizure in 2016 and then had another one about 8 months ago but is currently not on any seizure medications. Patient has not been ill recently. Patient does have a history of hypertension, GERD, hepatitis C, questionable MS and von Willebrand's disease. Patient will not answer any questions for me.] Physical Examination: [HEENT-PERRLA, EOMI. Cranial nerves II through XII grossly intact. TMs clear. Mucous membranes moist. No adenopathy. Patient does have a bite wound to the right side of her tongue. Cardiovascular-regular rate and rhythm without murmur or ectopy Lungs-clear to auscultation, chest wall stable without crepitus or subcu emphysema Abdomen-normoactive bowel sounds, soft, nontender, no rebound or rigidity, no peritoneal signs. Neuro exam-no focal deficits and patient does follow commands when asked to move limbs and stick her tongue out. Extremities-intact 4, normal range of motion, normal pulses, atraumatic] Test Results: [EKG obtained on arrival shows sinus rhythm with a ventricular rate of 86 bpm. CBC with differential of 14.5, hemoglobin 11.6, hematocrit 35, platelets 290. Chemistries unremarkable. LFTs unremarkable. Urinalysis was normal. Troponin is less than 0.015. Toxicology screen was negative. CT scan of the brain without contrast showed no acute significant findings on my interpretation and the official report is pending from radiology. Patient on arrival did receive a milligram of Ativan IV] Emergency Department Course and Treatment: [And was started on Keppra thousand milligrams IV. I did review patient's medical records and it appears that she has had 2 EEGs within the last 2 years that have been without evidence for epileptic activity.] Treatment Plan: [Patient will be admitted to the hospital if she continues to be postictal.] Disposition: [Admit] Impression: [Status epilepticus Prolonged postictal state] This note was generated with [employer] dictation software. It may contain incorrect words, spelling, and punctuation that were not noted in review of the chart prior to signing ED Disposition - Plan for ED Patient: Chief Complaint: Seizure Referrals: Robert Patel MD [Primary Care Provider] - What to do if you have Problems For any increased pain, shortness of breath, bleeding, nausea or vomiting, chest pain, or any unexpected problems, contact your Primary Care Provider. Call [facility] ([phone]) or report to the closest Emergency Room. Call 911 if necessary. 02/17/18 0414 <Electronically signed by Brendan Angel DO> Date rBendan Angel DO Cosigner Signature (If Indicated): Date CC: Lul Patel MD URINE DRUG SCREEN Collected: 02/17/2018 Status: F Source: J[facility]ONY (VISTA) 3:30 AM [facility] REPOSITORY TYPE CODE TESTS RESULT OUT OF RANGE REFERENCE UNITS LAB L505.0075 TO BE Normal CONFIRMED Result Comment: CONFIRMATORY TESTING FOR ALL POSITIVE URINE DRUG SCREEN RESULTS WILL ONLY BE SENT OUT UPON PHYSICIAN ORDER. VISTA Urine Drug Screen methods provide only preliminary analytical test results. A more specific alternate chemical method must be used in order to obtain a confirmed analytical result. Gas chromatography/mass spectrometery (GC/MS) is the preferred confirmatory method. Clinical consideration and professional judgement should be applied to any drug of abuse test result, particularly when preliminary positive results are used. URINE TCA TESTING MUST BE ORDERED SEPARATELY. USE TEST MNEMONIC: UTCA LAB L505.5005 VISTA UDS PH 6 Normal LAB L505.5015 <1000 ng/mL AMPHETAMINES Normal NEGATIVE LAB L505.5025 < 200 ng/mL BARBITIURATES Normal NEGATIVE LAB L505.5035 < 200 ng/mL BENZODIAZIPINE Normal NEGATIVE LAB L505.5045 < 300 ng/mL COCAINE Normal NEGATIVE LAB L505.5055 < 500 ng/mL ECSTACY Normal NEGATIVE LAB L505.5065 < 300 ng/mL METHADONE Normal NEGATIVE LAB L505.5075 < 300 ng/mL OPIATES Normal NEGATIVE LAB L505.5085 < 25 ng/mL PCP Normal NEGATIVE LAB L505.5095 < 50 ng/mL THC Normal NEGATIVE Performed By: #### L505.5000 #### [facility] [address] [place], [place], [address] URINALYSIS, COMPLETE Collected: 02/17/2018 Status: F Source: [place] 3:30 AM [facility] REPOSITORY Order Comment: How was Urine Obtained? STIPPLER TO SPECIFY TYPE CODE TESTS RESULT OUT OF RANGE REFERENCE UNITS LAB L400.3000 Yellow COLOR Normal Yellow LAB L400.3050 Clear Normal CLARITY Clear LAB L400.3200 Normal mg/dl Normal GLUCOSE, UR Normal LAB L400.3300 Negative mg/dL Normal BILIRUBIN URINE Negative LAB L400.3400 Negative mg/dl Normal KETONE UR Negative LAB L400.3465 1.002-1.030 Normal SP.GR. DIPSTX 1.020 LAB L400.3550 5.0 - 8.0 pH UR Normal 6.0 LAB L400.3600 Negative mg/dl High PROT 15 DIPSTX LAB L400.3700 Normal mg/dl Normal UROBILI Normal LAB L400.3750 Negative Normal NITRITE UR Negative LAB L400.3780 Negative /ul High 10 OCCULT BLOOD-UR LAB L400.3800 Negative /ul LEUK Normal ESTERASE Negative LAB L400.4050 0-5 /hpf WBC 0 Normal SEEN LAB L400.4100 0-5 /hpf 0 Normal RBC-UA SEEN LAB L400.4150 5-10 /hpf SQUAM 0 Normal EPI SEEN LAB L400.4300 None Seen /hpf 0 Normal BACTERIA SEEN LAB L400.4350 <or=2+ /hpf 0 Normal MUCUS, URINE SEEN Performed By: #### L400.0001 #### [facility] [address] [place], [place], [id number] CBC W/DIFF, AUTOMATED Collected: 02/17/2018 Status: F Source: [place] 3:13 AM [facility] REPOSITORY TYPE CODE TESTS RESULT OUT OF RANGE REFERENCE UNITS LAB L100.1000 4.4-11.0 K/mm3 High WBC 14.5 LAB L100.1200 4.2-5.4 M/mm3 Normal RBC 4.29 LAB L100.1300 12.0-15.0 g/dl Low HGB 11.6 LAB L100.1400 37-47 % Low HCT 34.8 LAB L100.1500 81-99 fL Normal MCV 81.1 LAB L100.1600 27.0-32.0 pg Normal MCH 27.0 LAB L100.1700 32-36 g/gl Normal MCHC 33.3 LAB L100.1810 11.6-14.6 % High RDW CV 15.2 LAB L100.1820 35.1-43.9 fl High RDW SD 44.9 LAB L100.1900 150-450 K/mm3 Normal PLT 290 LAB L100.2000 6.2-12.0 fl High MPV 12.3 LAB L100.2100 47-70 % High NEUT% 77.0 LAB L100.2200 19-41 % Low LY% 13.6 LAB L100.2300 0-10 % Normal MONO% 8.0 LAB L100.2400 0-5 % Normal EO% 0.9 LAB L100.2500 0-1 % Normal BASO% 0.2 LAB L100.2550 0.0-0.9 % Normal IM GRAN % 0.300 Result Comment: IG% - Immature Granulocytes (promyelocytes, myelocytes and metamyelocytes) > 1% indicates that a LEFT SHIFT is Present. LAB L100.2620 2.0-7.7 X10 3/uL High Absolute Neut 11.1 LAB L100.2720 0.83-4.51 X10 3/ul Normal Absolute Lymph 1.97 Performed By: #### L100.0100 #### [facility] [address] [place], [address] COMPREHENSIVE METABOLIC Collected: 02/17/2018 Status: F Source: [facility] 3:13 AM [facility] REPOSITORY TYPE CODE TESTS RESULT OUT OF RANGE REFERENCE UNITS LAB L501.0100 74-106 mg/dL High GLU 119 Result Comment: Fasting Glucose result from 100 to 125 mg/dL suggests IMPAIRED HOMEOSTASIS per A.D.A. criteria. Please note revised GLUCOSE reference range effective 2017. LAB L501.1000 7-18 mg/dL Normal BUN 8 LAB L501.1100 0.55-1.02 mg/dL Normal CREAT,SERUM 0.86 Result Comment: The validity of the calculated GFR AND GFRAA in patients over 70 years has not been determined. Clinical correlation is essential. LAB L501.1110 >60 mL/min Normal EST GFR 70 Result Comment: Non- GFR Calc LAB L501.1115 >60 mL/min Normal EST GFR - AA 85 Result Comment: GFR Calc LAB L501.1255 ml/min Normal Estimated CRCL 57.90 LAB L501.1300 10-20 RATIO Low BUN/CRE 9.3 LAB L501.1500 6.4-8. g/dL Normal 2 T PROT 6.8 LAB L501.1800 3.2-5. g/dL Normal 0 ALB 3.6 LAB L501.1950 2.2-4. g/dL Normal 2 GLOB 3.2 LAB L501.2000 0.9-2. RATIO Normal 4 A/G 1.1 LAB L501.2200 8.5-10 mg/dL Normal .1 CA 8.7 LAB L501.4100 15-37 U/L Normal AST 18 LAB L501.4305 45-117 U/L Normal ALK P 68 LAB L501.4405 13-56 U/L Normal ALT 24 LAB L501.4600 0.20-1 mg/dL Normal .00 T BILI 0.40 LAB L501.5300 136-14 mmol/L Low 5 NA 134 LAB L501.5600 3.5-5. mmol/L Normal 1 K 3.7 LAB L501.5900 98-107 mmol/L Low CL 97 LAB L501.6100 21.0-3 mmol/L Normal 2.0 CO2 27.0 LAB L501.6200 5-15 Normal GAP 10 Performed By: #### L500.4050, L501.4010 #### [facility] [address] [place], [address] TROPONIN-I Collected: 02/17/2018 Status: F Source: [place] 3:13 AM [facility] REPOSITORY TYPE CODE TESTS RESULT OUT OF RANGE REFERENCE UNITS LAB L501.4010 <0.045 ng/mL Normal < 0.015 TROPONIN-I Result Comment: TROPONIN-I EXPECTED VALUES <0.045 Negative 0.045 - 0.590 Consistent with Cardiac Damage > OR = 0.600 Critical Value Not every elevated troponin is indicative of ND. These values should be used with clinical judgement in examining the patient's clinical picture for diagnosis. To establish a diagnosis of ND versus myocardial injury, there must be a demonstrated rise and/or fall in the troponin values, in addition to ischemic symptoms, EKG changes, new regional wall motion abnormality, and/or angiographical evidence. PLEASE NOTE: REFERENCE RANGES EDITED 17 Performed By: #### L500.4050, L501.4010 #### [facility] [address] [facility] [place], [address] ALCOHOL, BLOOD Collected: 02/17/2018 Status: F Source: [place] (MEDICAL)-SERUM 3:13 AM [facility] REPOSITORY TYPE CODE TESTS RESULT OUT OF RANGE REFERENCE UNITS LAB L501.9100 mg/dL Normal SERUM < 3.0 ETOH Result Comment: The serum:whole blood ethanol ratio is approximately 1.14 and varies slightly with hematocrit. Medical Alcohol reference interval and critical value in non-tolerant individuals; 50 - 100 Impairment 100 Intoxication 100 - 250 Severe Poisoning 250 - 400 Deep/possible fatal coma Performed By: #### L501.9100 #### [facility] [address] [facility] [place], [address] BRAIN/HEAD WITHOUT Observed: 02/17/2018 Status: F Source: [place] CONTRAST 3:13 AM [facility] REPOSITORY [facility] Imaging Services [address] [place] [address] Brain/Head without Contrast MR#: [id number] Acct: [id number] Name: AICHA ROLLINS Rep #: [id number] : 1950 F 67 From: Ruba Rick MD PCP: Lul Patel MD Status: REG ER Study: Brain/Head without Contrast Date of Exam: 02/17/18 Exam# [id number] Ordering Dr: Brendan Angel DO STUDY: CT BRAIN WITHOUT CONTRAST REASON FOR EXAM: Female, 67 years old. Seizure x2 tonight. Does not respond to verbal commands. RADIATION DOSAGE (If Supplied By Facility): CTDIvol = ( 44.99 ) mGy, DLP = ( 745.49 ) mGycm TECHNIQUE: Transaxial CT imaging of the brain was performed without administration of intravenous contrast material. Multiplanar coronal and sagittal images were reformatted. Individualized dose optimization techniques were used for this CT. COMPARISON: CT brain and MRI brain 05/18/2016 FINDINGS: Normal soft tissue structures. Normal calvarium. Normal size ventricles and extra-axial spaces for the patient's age. There are areas of decreased attenuation within the white matter tracts of the supratentorial brain, consistent with microvascular disease changes. There are small punctate calcifications of the basal ganglia which are seen in the aging brain as a normal variant. Normal brainstem. Normal cerebellum. There is no intracranial hemorrhage. There are no findings of an acute ischemic infarction. Normal visualized paranasal sinuses. The bilateral mastoid air cells are clear. CT/Brain/Head without Contrast IMPRESSION: Chronic involutional changes of the brain. There is no acute intracranial pathology. There is no significant interval change. Electronically Signed: Ruba Rick MD at 4:20 EDT , Service support , CC: Lul Patel MD; Brendan Angel DO Chief Knowledge Officer: Signed BASIC METABOLIC Collected: 12/22/2017 Status: F Source: [place] PROFILE (BMP) 3:29 PM [facility] REPOSITORY Order Comment: Order Date: 12/22/17 Order Info: [id number] - BMP TYPE CODE TESTS RESULT OUT OF RANGE REFERENCE UNITS LAB L501.0100 74-106 mg/dL High GLU 117 Result Comment: Fasting Glucose result from 100 to 125 mg/dL suggests IMPAIRED HOMEOSTASIS per A.D.A. criteria. Please note revised GLUCOSE reference range effective 2017. LAB L501.1000 7-18 mg/dL Low BUN 4 LAB L501.1100 0.55-1.02 mg/dL Normal CREAT,SERUM 0.70 Result Comment: The validity of the calculated GFR AND GFRAA in patients over 70 years has not been determined. Clinical correlation is essential. LAB L501.1110 >60 mL/min Normal EST GFR 89 Result Comment: Non- GFR Calc LAB L501.1115 >60 mL/min Normal EST GFR - AA 108 Result Comment: GFR Calc LAB L501.1300 10-20 RATIO Low BUN/CRE 5.7 LAB L501.2200 8.5-10.1 mg/dL Normal CA 9.7 LAB L501.5300 136-145 mmol/L Normal NA 137 LAB L501.5600 3.5-5.1 mmol/L Normal K 4.1 LAB L501.5900 98-107 mmol/L Normal CL 99 LAB L501.6100 21.0-32.0 mmol/L Normal CO2 29.0 LAB L501.6200 5-15 Normal GAP 9 Performed By: #### L500.2500, L503.0105 #### [facility] [address] [facility] [place], [place], [address] VITAMIN B12 Collected: 12/22/2017 Status: F Source: [place] 3:29 PM [facility] REPOSITORY Order Comment: Order Date: 12/22/17 Order Info: [id number] - B12 TYPE CODE TESTS RESULT OUT OF RANGE REFERENCE UNITS LAB L503.0105 211-911 pg/mL Normal Vitamin B12 839 Performed By: #### L500.2500, L503.0105 #### [facility] [address] [place], [place], [address] CBC-COMPLETE BLOOD CNT Collected: 11/20/2017 Status: F Source: [place] NO DIFF 12:13 PM [facility] REPOSITORY Order Comment: Order Date: 11/20/17 Order Info: [id number] - CBC Order Info: 31369-4 - SED TYPE CODE TESTS RESULT OUT OF RANGE REFERENCE UNITS LAB L100.1000 4.4-11.0 K/mm3 Normal WBC 8.9 LAB L100.1200 4.2-5.4 M/mm3 Normal RBC 4.37 LAB L100.1300 12.0-15.0 g/dl Low HGB 11.0 LAB L100.1400 37-47 % Low HCT 34.9 LAB L100.1500 81-99 fL Low MCV 79.9 LAB L100.1600 27.0-32.0 pg Low MCH 25.2 LAB L100.1700 32-36 g/gl Low MCHC 31.5 LAB L100.1810 11.6-14.6 % High RDW CV 15.6 LAB L100.1820 35.1-43.9 fl High RDW SD 45.9 LAB L100.1900 150-450 K/mm3 Normal PLT 324 LAB L100.2000 6.2-12.0 fl Normal MPV 10.8 Performed By: #### L100.0500, L101.9900, L500.2500, L501.9520, L503.0105, L506.1000 #### [facility] [address] [place], [address] ERYTHROCYTE SED RATE Collected: 11/20/2017 Status: F Source: [place] 12:13 PM [facility] REPOSITORY Order Comment: Order Date: 11/20/17 Order Info: [id number] - CBC Order Info: 36064-9 - SED TYPE CODE TESTS RESULT OUT OF RANGE REFERENCE UNITS LAB L102.0000 0-30 mm/hr Normal SED RATE 6 Performed By: #### L100.0500, L101.9900, L500.2500, L501.9520, L503.0105, L506.1000 #### [facility] [address] [facility] [place], [place], [address] BASIC METABOLIC Collected: 11/20/2017 Status: F Source: [place] PROFILE (BMP) 12:13 PM [facility] REPOSITORY Order Comment: Order Date: 11/20/17 Order Info: 0667-1 - BMP Order Info: 3016-3 - TSH TYPE CODE TESTS RESULT OUT OF RANGE REFERENCE UNITS LAB L501.0100 74-106 mg/dL Normal GLU 100 Result Comment: Fasting Glucose result from 100 to 125 mg/dL suggests IMPAIRED HOMEOSTASIS per A.D.A. criteria. Please note revised GLUCOSE reference range effective 2017. LAB L501.1000 7-18 mg/dL Normal BUN 10 LAB L501.1100 0.55-1.02 mg/dL Normal CREAT,SERUM 0.70 Result Comment: The validity of the calculated GFR AND GFRAA in patients over 70 years has not been determined. Clinical correlation is essential. LAB L501.1110 >60 mL/min Normal EST GFR 88 Result Comment: Non- GFR Calc LAB L501.1115 >60 mL/min Normal EST GFR - AA 107 Result Comment: GFR Calc LAB L501.1300 10-20 RATIO Normal BUN/CRE 14.2 LAB L501.2200 8.5-10.1 mg/dL CA Normal 8.7 LAB L501.5300 136-145 mmol/L NA Normal 137 LAB L501.5600 3.5-5.1 mmol/L K Normal 3.9 LAB L501.5900 98-107 mmol/L CL Normal 104 LAB L501.6100 21.0-32.0 mmol/L Normal CO2 25.0 LAB L501.6200 5-15 Normal GAP 8 Performed By: #### L100.0500, L101.9900, L500.2500, L501.9520, L503.0105, L506.1000 #### [facility] [address] [place], [place], [address] THYROID STIM HORMONE Collected: 11/20/2017 Status: F Source: [place] (TSH) 12:13 PM [facility] REPOSITORY Order Comment: Order Date: 11/20/17 Order Info: [id number] - BMP Order Info: 3016-3 - TSH TYPE CODE TESTS RESULT OUT OF RANGE REFERENCE UNITS LAB L501.9520 0.358-3.74 uIU/mL Normal TSH 1.46 Performed By: #### L100.0500, L101.9900, L500.2500, L501.9520, L503.0105, L506.1000 #### [facility] [address] [facility] [facility] [place], [place], [address] VITAMIN B12 Collected: 11/20/2017 Status: F Source: [place] 12:13 PM [facility] REPOSITORY Order Comment: Order Date: 11/20/17 Order Info: 2132-9 - B12 Order Info: 58914-1 - VITD25 TYPE CODE TESTS RESULT OUT OF RANGE REFERENCE UNITS LAB L503.0105 211-911 pg/mL Normal Vitamin B12 368 Performed By: #### L100.0500, L101.9900, L500.2500, L501.9520, L503.0105, L506.1000 #### [facility] [address] [place], [address] VITAMIN D,25 HYDROXY Collected: 11/20/2017 Status: F Source: [place] 12:13 PM [facility] REPOSITORY Order Comment: Order Date: 11/20/17 Order Info: 2132-9 - B12 Order Info: 22271-6 - VITD25 TYPE CODE TESTS RESULT OUT OF REFERENCE UNITS RANGE LAB L506.1000 29.95-100.01 ng/mL Low Vitamin D 29.6 25-OH Result Comment: Vitamin D 25(OH) Status Range Deficiency <20 ng/mL (50nmol/L) Insuffciency 20 - 30 ng/mL (50 - 75 nmol/L) Sufficiency 30 - 100 ng/mL (75 - 250 nmol/L) Toxicity >100 ng/mL (>250 nmol/L) Performed By: #### L100.0500, L101.9900, L500.2500, L501.9520, L503.0105, L506.1000 #### [facility] [address] [place], [address] BASIC METABOLIC Collected: 10/28/2017 Status: F Source: [place] PROFILE (BMP) 4:03 PM [facility] REPOSITORY Order Comment: Order Date: 10/28/17 Order Info: 0667-1 - BMP Order Info: 2777-1 - PHOS Order Info: 72066-1 - MG TYPE CODE TESTS RESULT OUT OF RANGE REFERENCE UNITS LAB L501.0100 74-106 mg/dL Low GLU 72 Result Comment: Please note revised GLUCOSE reference range effective 2017. LAB L501.1000 7-18 mg/dL Low BUN 6 LAB L501.1100 0.55-1.02 mg/dL Normal CREAT,SERUM 0.69 Result Comment: The validity of the calculated GFR AND GFRAA in patients over 70 years has not been determined. Clinical correlation is essential. LAB L501.1110 >60 mL/min Normal EST GFR 90 Result Comment: Non- GFR Calc LAB L501.1115 >60 mL/min Normal EST GFR - AA 109 Result Comment: GFR Calc LAB L501.1300 10-20 RATIO Low BUN/CRE 8.7 LAB L501.2200 8.5-10.1 mg/dL Normal CA 9.0 LAB L501.5300 136-145 mmol/L Normal NA 138 LAB L501.5600 3.5-5.1 mmol/L Low K 3.4 LAB L501.5900 98-107 mmol/L Normal CL 100 LAB L501.6100 21.0-32.0 mmol/L Normal CO2 30.0 LAB L501.6200 5-15 Normal GAP 8 Performed By: #### L500.2500, L501.2300, L501.5200, L509.1000, L506.1000 #### [facility] [address] [place], [place], [address] PHOSPHORUS Collected: 10/28/2017 Status: F Source: [place] 4:03 PM [facility] REPOSITORY Order Comment: Order Date: 10/28/17 Order Info: 0667-1 - BMP Order Info: 2777-1 - PHOS Order Info: 70017-4 - MG TYPE CODE TESTS RESULT OUT OF RANGE REFERENCE UNITS LAB L501.2300 2.5-4.9 mg/dL Normal PHOS 3.8 Performed By: #### L500.2500, L501.2300, L501.5200, L509.1000, L506.1000 #### [facility] [address] [place], [address] MAGNESIUM Collected: 10/28/2017 Status: F Source: [place] 4:03 PM [facility] REPOSITORY Order Comment: Order Date: 10/28/17 Order Info: 0667-1 - BMP Order Info: 2777-1 - PHOS Order Info: 83995-4 - MG TYPE CODE TESTS RESULT OUT OF RANGE REFERENCE UNITS LAB L501.5200 1.6-2.6 mg/dL Normal MG 2.1 Result Comment: Please note revised Magnesium reference range effective 2017. Performed By: #### L500.2500, L501.2300, L501.5200, L509.1000, L506.1000 #### [facility] [address] [place], [address] PTHIN Collected: 10/28/2017 Status: F Source: [place] 4:03 PM [facility] REPOSITORY Order Comment: Order Date: 10/28/17 Order Info: 0565-1 - PTHIN TYPE CODE TESTS RESULT OUT OF RANGE REFERENCE UNITS LAB L509.1000 18.4-80.1 pg/mL Normal PTHIN 76.1 Result Comment: Please Note: PTH INTACT METHOD AND REFERENCE RANGE CHANGE Effective 07/23/2017. Performed By: #### L500.2500, L501.2300, L501.5200, L509.1000, L506.1000 #### [facility] [address] [place], [address] VITAMIN D,25 HYDROXY Collected: 10/28/2017 Status: F Source: [place] 4:03 PM [facility] REPOSITORY Order Comment: Order Date: 10/28/17 Order Info: 00281-2 - VITD25 TYPE CODE TESTS RESULT OUT OF RANGE REFERENCE UNITS LAB L506.1000 29.95-100.01 ng/mL Normal Vitamin D 35.8 25-OH Result Comment: Vitamin D 25(OH) Status Range Deficiency <20 ng/mL (50nmol/L) Insuffciency 20 - 30 ng/mL (50 - 75 nmol/L) Sufficiency 30 - 100 ng/mL (75 - 250 nmol/L) Toxicity >100 ng/mL (>250 nmol/L) Performed By: #### L500.2500, L501.2300, L501.5200, L509.1000, L506.1000 #### [facility] [address] [place], [address] BASIC METABOLIC Collected: 10/22/2017 Status: F Source: [place] PROFILE (BMP) 1:52 PM [facility] REPOSITORY Order Comment: Order Date: 09/30/17 Order Info: 0667-1 - BMP TYPE CODE TESTS RESULT OUT OF RANGE REFERENCE UNITS LAB L501.0100 74-106 mg/dL Normal GLU 105 Result Comment: Fasting Glucose result from 100 to 125 mg/dL suggests IMPAIRED HOMEOSTASIS per A.D.A. criteria. Please note revised GLUCOSE reference range effective 2017. LAB L501.1000 7-18 mg/dL Low BUN 6 LAB L501.1100 0.55-1.02 mg/dL Normal CREAT,SERUM 0.74 Result Comment: The validity of the calculated GFR AND GFRAA in patients over 70 years has not been determined. Clinical correlation is essential. LAB L501.1110 >60 mL/min Normal EST GFR 83 Result Comment: Non- GFR Calc LAB L501.1115 >60 mL/min Normal EST GFR - AA 101 Result Comment: GFR Calc LAB L501.1300 10-20 RATIO Low BUN/CRE 8.1 LAB L501.2200 8.5-10.1 mg/dL Normal CA 9.5 LAB L501.5300 136-145 mmol/L Normal NA 138 LAB L501.5600 3.5-5.1 mmol/L Normal K 3.7 LAB L501.5900 98-107 mmol/L Normal CL 101 LAB L501.6100 21.0-32.0 mmol/L Normal CO2 30.0 LAB L501.6200 5-15 Normal GAP 7 Performed By: #### L500.2500 #### [facility] [address] [facility] [place], [address] DEXA BONE DENSITY Observed: 10/21/2017 Status: F Source: [place] STUDY () 2:48 PM [facility] REPOSITORY [facility] Imaging Services [address] [place] [address] Dexa Bone Density Study () MR#: [id number] Acct: [id number] Name: AICHA ROLLINS Rep #: [id number] : 1950 F 66 From: Chandana Maldonado MD PCP: Lul Patel MD Status: REG CLI Study: Dexa Bone Density Study () Date of Exam: 10/21/17 Exam# [id number] Ordering Dr: Robert Patel MD STUDY: DUAL ENERGY X-RAY ABSORPTIOMETRY / DXA REASON FOR EXAM: Female, 66 years old. The patient is postmenopausal. Loss of height. TECHNIQUE: Bone Mineral Density (BMD) measurements of lumbar spine and bilateral hips were obtained. COMPARISON: Comparison is made with prior study dated May 11, 2015. FINDINGS: Lumbar Spine (L1-L4): g/cm2 (0.925) / T-score (-2.1) / Z-score (-0.5) Findings are suggestive of osteopenia with a moderate fracture risk. Left Femur Total: g/cm2 (0.759) / T-score (-2.0) / Z- score (-0.7) Left Femoral Neck: g/cm2 (0.670) / T-score (-2.7) / Z- score (-1.2) Right Femur Total: g/cm2 (0.734) / T-score (-2.2) / Z- score (-0.9) Right Femoral Neck: g/cm2 (0.682) / T-score (-2.6) / Z-score (-1.1) The T-Scores on the most recent prior examination were: Lumbar Spine (L1-L4): There has been worsening of bone density since the previous examination. Left Femur Total: which represents a worsening of 7.3%. Right Femur Total: which represents a worsening of 5.9%. HPBD/Dexa Bone Density Study (HP) IMPRESSION: The patient is considered osteoporotic as outlined below according to World Jeferson Organization (WHO) criteria with a high fracture risk. There has been worsening of bone density since the previous examination. Reference Information: The T-score is the number of standard deviations above or below the standard which is normal for young adults at their peak bone mineral density. The World Health Organization (WHO) interprets the T-scores as follows: Above -1 Normal bone density Between -1 and -2.5 Osteopenia Equal to / or below -2.5 Osteoporosis As a practical clinical guideline, osteopenia may be graded as follows: Mild -1 through -1.5 Moderate -1.6 through -2.0 Severe -2.1 through -2.4 The Z-score is the number of standard deviations above or below age-matched controls. A Z-score of less than -1.5 would be considered abnormal. References: 1. NIH Osteoporosis and Related Bone Diseases http://www.osteo.org 2. International Society for Clinical Densitometry http://www.iscd.org 3. National Osteoporosis Foundation http://www.nof.org Electronically Signed: Chandana Maldonado MD at 15:49 EDT Tel [phone], Service support , CC: Lul Patel MD Chief Knowledge Officer: Signed SCREENING MAMM (CAD), Observed: 10/21/2017 Status: F Source: [place] BILAT 2:48 PM [facility] REPOSITORY [facility] Imaging Services [address] [place] [address] SCREENING MAMM (CAD), BIL MR#: [id number] Acct: [id number] Name: AICHA ROLLINS Rep #: [id number] : 1950 F 66 From: Chandana Maldonado MD PCP: Lul Patel MD Status: REG CLI Study: SCREENING MAMM (CAD), BILAT Date of Exam: 10/21/17 Exam# [id number] Ordering Dr: Robert Patel MD MAMMOGRAPHY - BILATERAL SCREENING REASON FOR EXAM: Female, 66 years old. Routine annual screening examination. PERTINENT HISTORY: Aunt with breast cancer. TECHNIQUE: Digital bilateral breast priyanka (3D mammographic acquisition) in the CC and MLO projections. 2-D mediolateral oblique (MLO) and craniocaudad (CC) views of both breasts were obtained. CAD: Full Field Digital Mammography with Computer Added Detection was performed. COMPARISON: Comparison is made with prior study dated August 31, 2016 and December 10, 2013. FINDINGS: Breast Composition: There are scattered areas of fibroglandular density. There are no dominant masses or suspicious calcifications. There is a stable 4.2 mm well-defined nodule in the mid retroareolar region of the left breast. This was demonstrated to be a cyst on prior ultrasound. No other significant abnormalities are identified. There has been no significant change since the prior study. HPBI/SCREENING MAMM (CAD), BILAT IMPRESSION: Stable bilateral screening mammogram. Yearly follow-up mammogram recommended. (A) ASSESSMENT CATEGORY: BIRADS Category 2: Benign. A letter regarding these results will be sent to the patient by the facility within 30 days. Approximately 10% of breast cancers are not detected by mammography. A normal mammogram should not delay biopsy of a clinically suspicious abnormality. [id number] Electronically Signed: Chandana Maldonado MD at 9:36 EDT Tel [phone], Service support , CC: Lul Patel MD Chief Knowledge Officer: Signed CBC W/DIFF, AUTOMATED Collected: 09/20/2017 Status: F Source: [place] 11:20 AM [facility] REPOSITORY Order Comment: Order Date: 08/28/17 Order Info: 0184-1 - CBCD Order Info: 4679-7 - RETIC TYPE CODE TESTS RESULT OUT OF RANGE REFERENCE UNITS LAB L100.1000 4.4-11.0 K/mm3 Normal WBC 6.1 LAB L100.1200 4.2-5.4 M/mm3 Normal RBC 4.33 LAB L100.1300 12.0-15.0 g/dl Low HGB 10.6 LAB L100.1400 37-47 % Low HCT 34.4 LAB L100.1500 81-99 fL Low MCV 79.4 LAB L100.1600 27.0-32.0 pg Low MCH 24.5 LAB L100.1700 32-36 g/gl Low MCHC 30.8 LAB L100.1810 11.6-14.6 % High RDW CV 16.8 LAB L100.1820 35.1-43.9 fl High RDW SD 48.6 LAB L100.1900 150-450 K/mm3 Normal PLT 307 LAB L100.2000 6.2-12.0 fl Normal MPV 11.3 LAB L100.2100 47-70 % High NEUT% 76.4 LAB L100.2200 19-41 % Low LY% 18.2 LAB L100.2300 0-10 % Normal MONO% 4.0 LAB L100.2400 0-5 % Normal EO% 0.5 LAB L100.2500 0-1 % Normal BASO% 0.7 LAB L100.2550 0.0-0.9 % Normal IM GRAN % 0.200 Result Comment: IG% - Immature Granulocytes (promyelocytes, myelocytes and metamyelocytes) > 1% indicates that a LEFT SHIFT is Present. LAB L100.2620 2.0-7.7 X10 3/uL Normal Absolute Neut 4.6 LAB L100.2720 0.83-4.51 X10 3/ul Normal Absolute Lymph 1.10 Performed By: #### L100.0100, L100.9950, L503.6075, L503.6150, L503.6550 #### [facility] [address] [place], [address] RETIC PANEL Collected: 09/20/2017 Status: F Source: [place] 11:20 AM [facility] REPOSITORY Order Comment: Order Date: 08/28/17 Order Info: 0184-1 - CBCD Order Info: 4679-7 - RETIC TYPE CODE TESTS RESULT OUT OF RANGE REFERENCE UNITS LAB L101.0000 0.5-1.5 % Normal RETIC 0.96 LAB L101.0060 3.00-15.90 % IM Normal RET FRACTION 3.90 LAB L101.0090 30-35 pg Low RET-HE 25.4 LAB L101.0110 1.0-7.9 % Normal IPF 2.8 Result Comment: Low PLT + Low IPF suggest a bone marrow production disorder Low PLT + high IPF suggests peripheral destruction (e.g.ITP, TTP, HIT, DIC, autoimmune) or bone marrow recovery Trending of serial IPF measurements is recommended when evaluating for bone marrow respones Value above normal range indicates an increase in RBC cellular response from bone marrow. Performed By: #### L100.0100, L100.9950, L503.6075, L503.6150, L503.6550 #### [facility] [address] [place], [place], [address] IRON BINDING Collected: 09/20/2017 Status: F [facility] 11:20 AM [facility] REPOSITORY Order Comment: Order Date: 08/28/17 Order Info: 2500-7 - TIBC Order Info: 2498-4 - FE Order Info: 2276-4 - ROSANNE TYPE CODE TESTS RESULT OUT OF RANGE REFERENCE UNITS LAB L503.6075 250-450 ug/dL Normal TIBC 442 Performed By: #### L100.0100, L100.9950, L503.6075, L503.6150, L503.6550 #### [facility] [place], [place], [address] IRON Collected: 09/20/2017 Status: F Source: [place] 11:20 AM [facility] REPOSITORY Order Comment: Order Date: 08/28/17 Order Info: 2500-7 - TIBC Order Info: 2498-4 - FE Order Info: 2276-4 - ROSANNE TYPE CODE TESTS RESULT OUT OF RANGE REFERENCE UNITS LAB L503.6150 50-170 ug/dL Normal IRON 128 Performed By: #### L100.0100, L100.9950, L503.6075, L503.6150, L503.6550 #### [facility] [place], [address] FERRITIN Collected: 09/20/2017 Status: F Source: [place] 11:20 AM [facility] REPOSITORY Order Comment: Order Date: 08/28/17 Order Info: 2500-7 - TIBC Order Info: 2498-4 - FE Order Info: 2276-4 - ROSANNE TYPE CODE TESTS RESULT OUT OF REFERENCE UNITS RANGE LAB L503.6550 8-252 ng/mL Low FERRITIN 7 Performed By: #### L100.0100, L100.9950, L503.6075, L503.6150, L503.6550 #### [facility] [address] [place], [place], [address] CBC W/DIFF, AUTOMATED Collected: 08/25/2017 Status: F Source: [place] 2:54 PM [facility] REPOSITORY TYPE CODE TESTS RESULT OUT OF RANGE REFERENCE UNITS LAB L100.1000 4.4-11.0 K/mm3 Normal WBC 9.8 LAB L100.1200 4.2-5.4 M/mm3 Low RBC 3.83 LAB L100.1300 12.0-15.0 g/dl Low HGB 9.5 LAB L100.1400 37-47 % Low HCT 30.7 LAB L100.1500 81-99 fL Low MCV 80.2 LAB L100.1600 27.0-32.0 pg Low MCH 24.8 LAB L100.1700 32-36 g/gl Low MCHC 30.9 LAB L100.1810 11.6-14.6 % High RDW CV 17.2 LAB L100.1820 35.1-43.9 fl High RDW SD 48.6 LAB L100.1900 150-450 K/mm3 High PLT 546 LAB L100.2000 6.2-12.0 fl Normal MPV 11.1 LAB L100.2100 47-70 % Normal NEUT% 61.4 LAB L100.2200 19-41 % Normal LY% 23.3 LAB L100.2300 0-10 % High MONO% 13.3 LAB L100.2400 0-5 % Normal EO% 0.9 LAB L100.2500 0-1 % Normal BASO% 0.5 LAB L100.2550 0.0-0.9 % Normal IM GRAN % 0.600 Result Comment: IG% - Immature Granulocytes (promyelocytes, myelocytes and metamyelocytes) > 1% indicates that a LEFT SHIFT is Present. LAB L100.2620 2.0-7.7 X10 3/uL Normal Absolute Neut 6.0 LAB L100.2720 0.83-4.51 X10 3/ul Normal Absolute Lymph 2.29 Performed By: #### L100.0100 #### [facility] [address] [place], [place], [address] LIVER PROFILE Collected: 08/25/2017 Status: F Source: [place] 2:54 PM [facility] REPOSITORY TYPE CODE TESTS RESULT OUT OF RANGE REFERENCE UNITS LAB L501.1500 6.4-8.2 g/dL Normal T PROT 7.4 LAB L501.1800 3.4-5.0 g/dL Normal ALB 3.4 Result Comment: Please note revised Albumin AND Globulin reference range effective 2017. LAB L501.1950 2.2-4.2 g/dL Normal GLOB 4.0 LAB L501.4100 15-37 U/L Normal AST 18 LAB L501.4305 45-117 U/L Normal ALK P 89 LAB L501.4405 12-78 U/L Normal ALT 20 LAB L501.4600 0.20-1.00 mg/dL Normal T BILI 0.30 LAB L501.4700 0.00-0.30 mg/dL Normal D BILI 0.12 Performed By: #### L500.3400 #### [facility] [address] [place], [address] BASIC METABOLIC Collected: 08/21/2017 Status: F Source: [place] PROFILE (BMP) 10:02 AM [facility] REPOSITORY Order Comment: Order Date: 08/21/17 Order Info: 0667-1 - [facility] TYPE CODE TESTS RESULT OUT OF RANGE REFERENCE UNITS LAB L501.0100 70-110 mg/dL Normal GLU 94 LAB L501.1000 7-18 mg/dL Low BUN 5 LAB L501.1100 0.55-1.02 mg/dL Normal 0.81 CREAT,SERUM Result Comment: The validity of the calculated GFR AND GFRAA in patients over 70 years has not been determined. Clinical correlation is essential. LAB L501.1110 >60 mL/min Normal EST GFR 75 Result Comment: Non- GFR Calc LAB L501.1115 >60 mL/min Normal EST GFR - AA 91 Result Comment: GFR Calc LAB L501.1300 10-20 RATIO Low BUN/CRE 6.2 LAB L501.2200 8.5-10.1 mg/dL Normal CA 9.0 LAB L501.5300 136-145 mmol/L Normal NA 138 LAB L501.5600 3.5-5.1 mmol/L Normal K 4.1 LAB L501.5900 98-107 mmol/L Normal CL 101 LAB L501.6100 21.0-32.0 mmol/L Normal CO2 29.0 LAB L501.6200 5-15 Normal GAP 8 Performed By: #### L500.2500 #### [facility] [address] [place], [address] 12 LEAD ELECTROCARDIOGRAM Observed: 08/18/2017 Status: F Source: [place] 1:59 PM [facility] REPOSITORY [facility] Cardiovascular Services [address] [place] [address] 12 Lead EKG 08/15/17 1136 MR#: [id number] Acct: [id number] Name: AICHA ROLLINS Rep #: [id number] : 1950 66 From: Jose Enrique Prince MD Attending Dr: Status: DEP ER Ordering Dr: Akbar Newton MD Date: 08/15/17 Location: ED Sex: F C Admitted: Test Reason : PALP Blood Pressure : / mmHG Vent. Rate : 096 BPM Atrial Rate : 096 BPM P-R Int : 154 ms QRS Dur : 088 ms QT Int : 376 ms P-R-T Axes : 052 -36 009 degrees QTc Int : 475 ms Normal sinus rhythm Left axis deviation Nonspecific ST abnormality Abnormal ECG Confirmed by JOSE ENRIQUE PRINCE MD ([id number]), magazine editor MERLYN KAPLAN ([id number]) on 08/18/2017 1:59:05 PM Referred By: Confirmed By:JOSE ENRIQUE PRINCE MD 08/18/17 1359 Date Jose Enrique Prince MD CC: Lul Patel MD Signed EMERGENCY DEPARTMENT Observed: 08/15/2017 Status: F Source: [place] SUMMARY 3:32 PM [facility] REPOSITORY [facility] Medical Records Department [address] [place] [address] Emergency Department Summary 08/15/17 1131 MR#: [id number] Acct: [id number] Name: AICHA ROLLINS Rep #: [id number] : 1950 66 From: Akbar Newton MD PCP: Lul Patel MD Status: REG ER - ER Visit Summary Date of Service: 08/15/17 Chief Complaint: Low potassium sent in by primary care physician History of Present Illness: The patient is a 66 F history of recent influenza and was admitted approximately a week ago. She has narcolepsy and hypertension. Prior history of hepatitis C. Patient's had recent labs drawn and her potassium was low and was sent in the ER for further evaluation and possible replacement. She states that she was admitted a week ago for influenza was feeling better and just has not felt great since she has been discharged. She had a recent outpatient chest x-ray which was negative for any pneumonia. She denies any dysuria currently. Physical Examination: Well-appearing older female. Vital signs are stable afebrile. Pulse ox 98% on room air no signs of hypoxia. H EENT exam is unremarkable. Neck is nontender no lymphadenopathy. Lungs have coarse breath sounds but no rales, rhonchi or wheezing. Heart is regular rhythm without murmur. Abdomen is soft and nontender. She is moving all 4 extremities. They are nontender without edema. Neurologically she is awake alert without focal deficits. The patient does not look septic or toxic or in any distress. Test Results: CBC shows a white count 12.2 H AND H 9.8 and 30 which is her baseline anemia. Electrolytes of potassium at 2.5. Normal gap. Creatinine is 0.6. Urinalysis shows 4+ bacteria and positive nitrates but no white cells no red cells and she is currently not having any symptoms. I discussed this with her and will do a urine culture and and follow-up the results decide she needs to be treated or not. The nurses had ordered EKG due to her low potassium and that showed a sinus rhythm a rate of 96 with no acute abnormality. Emergency Department Course and Treatment: Repeat exam the patient is doing well at 1330. She is already been given p.o. potassium she will be given 20 mEq of IV potassium. Discharge to home. Placed on potassium 20 mEq twice a day and follow-up with her doctor she has an appointment for next and she will need her potassium rechecked. Treatment Plan: [] Disposition: Discharge Impression: Acute hypokalemia Rule out UTI with a urine culture pending This note was generated with Dragon dictation software. It may contain incorrect words, spelling, and punctuation that were not noted in review of the chart prior to signing ED Disposition - Plan for ED Patient: Chief Complaint: Abn Labs Referrals: Robert Patel MD [Primary Care Provider] - What to do if you have Problems For any increased pain, shortness of breath, bleeding, nausea or vomiting, chest pain, or any unexpected problems, contact your Primary Care Provider. Call [facility] ([phone]) or report to the closest Emergency Room. Call 911 if necessary. 08/15/17 1532 <Electronically signed by Akbar Newton MD> Date Akbar Newton MD Cosigner Signature (If Indicated): Date CC: Lul Patel MD DISCHARGE INSTRUCTION Observed: 08/15/2017 Status: F Source: [place] 3:32 PM [facility] REPOSITORY [facility] Medical Records Department [address] [place] [address] Discharge Instruction 08/15/17 1332 MR#: [id number] Acct: [id number] Name: AICHA ROLLINS Rep #: [id number] : 1950 66 From: Akbar Newton MD PCP: Lul Patel MD Status: REG ER ED Disposition - Plan for ED Patient: Disposition: Home or Assisted Living Chief Complaint: Abn Labs Instructions: ED Potassium Deficiency Prescriptions: Potassium Chloride [K-Dur] 20 meq PO BID 10 Days tab Referrals: Robert Patel MD [Primary Care Provider] - Keep Brigette appointment Additional Instructions: Plenty of fruits and vegetables that will help increase her potassium level. K Dur which is potassium 1 pill twice a day. Follow-up with Dr. Yanez with your next scheduled appointment next week. A urine culture will be sent. Depending on those results we will determine if we need to start you on an antibiotic or not. What to do if you have Problems For any increased pain, shortness of breath, bleeding, nausea or vomiting, chest pain, or any unexpected problems, contact your Primary Care Provider. Call [facility] ([phone]) or report to the closest Emergency Room. Call 911 if necessary. 08/15/17 1532 <Electronically signed by Akbar Newton MD> Date Akbar Newton MD Cosigner Signature (If Indicated): Date CC: Lul Patel MD CBC W/DIFF, AUTOMATED Collected: 08/15/2017 Status: F Source: [place] 11:35 AM [facility] REPOSITORY TYPE CODE TESTS RESULT OUT OF RANGE REFERENCE UNITS LAB L100.1000 4.4-11.0 K/mm3 High WBC 12.2 LAB L100.1200 4.2-5.4 M/mm3 Low RBC 3.94 LAB L100.1300 12.0-15.0 g/dl Low HGB 9.8 LAB L100.1400 37-47 % Low HCT 30.6 LAB L100.1500 81-99 fL Low MCV 77.7 LAB L100.1600 27.0-32.0 pg Low MCH 24.9 LAB L100.1700 32-36 g/gl Normal MCHC 32.0 LAB L100.1810 11.6-14.6 % High RDW CV 16.7 LAB L100.1820 35.1-43.9 fl High RDW SD 45.1 LAB L100.1900 150-450 K/mm3 Normal PLT 307 LAB L100.2000 6.2-12.0 fl Normal MPV 11.0 LAB L100.2100 47-70 % Normal NEUT% 68.9 LAB L100.2200 19-41 % Normal LY% 19.6 LAB L100.2300 0-10 % Normal MONO% 9.6 LAB L100.2400 0-5 % Normal EO% 0.9 LAB L100.2500 0-1 % Normal BASO% 0.3 LAB L100.2550 0.0-0.9 % Normal IM GRAN % 0.700 Result Comment: IG% - Immature Granulocytes (promyelocytes, myelocytes and metamyelocytes) > 1% indicates that a LEFT SHIFT is Present. LAB L100.2620 2.0-7.7 X10 3/uL High Absolute Neut 8.4 LAB L100.2720 0.83-4.51 X10 3/ul Normal Absolute Lymph 2.38 LAB L100.7300 ANISO Normal 1+ Performed By: #### L100.0100 #### [facility] [address] [place], [address] BASIC METABOLIC Collected: 08/15/2017 Status: F Source: [place] PROFILE (BMP) 11:35 AM [facility] REPOSITORY TYPE CODE TESTS RESULT OUT OF RANGE REFERENCE UNITS LAB L501.0100 70-110 mg/dL Normal GLU 108 LAB L501.1000 7-18 mg/dL Low BUN 3 LAB L501.1100 0.55-1.02 mg/dL Normal 0.66 CREAT,SERUM Result Comment: The validity of the calculated GFR AND GFRAA in patients over 70 years has not been determined. Clinical correlation is essential. LAB L501.1110 >60 mL/min Normal EST GFR 95 Result Comment: Non- GFR Calc LAB L501.1115 >60 mL/min Normal EST GFR - AA 114 Result Comment: GFR Calc LAB L501.1255 ml/min Normal Estimated CRCL 73.38 LAB L501.1300 10-20 RATIO Low BUN/CRE 4.5 LAB L501.2200 8.5-10 mg/dL Normal .1 CA 8.6 LAB L501.5300 136-14 mmol/L Low 5 NA 135 LAB L501.5600 3.5-5. mmol/L Low 1 K alert 2.5 Result Comment: Critical Result(s) Called at: 12:03:53 08/15/2017 by: Sampson to Eladio PICKETT LAB L501.5900 98-107 mmol/L Low CL 97 LAB L501.6100 21.0-32.0 mmol/L High CO2 33.0 LAB L501.6200 5-15 Normal GAP 5 Performed By: #### L500.2500 #### [facility] [address] [place], [address] URINALYSIS, COMPLETE Collected: 08/15/2017 Status: F Source: [place] 11:35 AM [facility] REPOSITORY Order Comment: Order Date: 08/15/17 How was Urine Obtained? CLEAN CATCH TYPE CODE TESTS RESULT OUT OF RANGE REFERENCE UNITS LAB L400.3000 Yellow COLOR Normal Yellow LAB L400.3050 Clear Normal CLARITY Sl. Cloudy LAB L400.3200 Normal mg/dl Normal GLUCOSE, UR Normal LAB L400.3300 Negative mg/dL Normal BILIRUBIN URINE Negative LAB L400.3400 Negative mg/dl Normal KETONE UR Negative LAB L400.3465 1.002-1.030 Normal SP.GR. DIPSTX 1.005 LAB L400.3550 5.0 - 8.0 pH UR Normal 7.0 LAB L400.3600 Negative mg/dl PROT Normal DIPSTX Negative LAB L400.3700 Normal mg/dl Normal UROBILI Normal LAB L400.3750 Negative High NITRITE UR Positive LAB L400.3780 Negative /ul Normal OCCULT BLOOD-UR Negative LAB L400.3800 Negative /ul High LEUK 25 ESTERASE LAB L400.4050 0-5 /hpf WBC Normal 0-5 SEEN LAB L400.4100 0-5 /hpf 0 Normal RBC-UA SEEN LAB L400.4150 5-10 /hpf SQUAM Normal EPI 0-5 SEEN LAB L400.4300 None Seen /hpf 4+ Normal BACTERIA LAB L400.4350 <or=2+ /hpf Normal MUCUS, URINE RARE Performed By: #### L400.0001 #### [facility] [address] [place] [place], [address] Observed: 08/15/2017 Status: F Source: JHONY CULTURE, URINE 11:35 AM [facility] REPOSITORY Order Date: 08/15/17 Has pt arrived? Y Urine Culture ORGANISM 1: Klebsiella pneumoniae sp pneum [place] Count >100,000 Klebsiella pneumoniae sp pneum: REACTION Amoxacillin/Clavulanic Acid $ <=2 S Ampicillin $ 16 R Ampicillin/Sulbactam $ 4 S Cefazolin $ <=4 S Cefepime $ <=1 S Ceftriaxone $ <=1 S Ciprofloxacin $ <=0.25 S ESBL - Ertapenim $$$ <=0.5 S Gentamicin $ <=1 S Imipenem *NF <=0.25 S Levofloxacin $ <=0.12 S Nitrofurantoin $ 64 I Piperacillin/Tazobactam $$ <=4 S Tobramycin $ <=1 S Trimethoprim/Sulfametho $ <=20 S (NF) indicates non-formulary drug at [facility]. Approval by Infectious Disease Specialist required before non-formulary drugs may be ordered and/or dispensed. Performed By: #### M100.0650 #### [facility] [address] [place], [address] HEPATITIS C,RNA PCR Collected: 08/15/2017 Status: F Source: [place] VIRAL LOAD 10:00 AM [facility] REPOSITORY TYPE CODE TESTS RESULT OUT OF RANGE REFERENCE UNITS LAB L7000.7100 . IU/mL HCV Normal HCV Not Detected QT PCR LAB L7000.7350 . Test Normal HCV not performed log 10 LAB L7000.7500 . Normal TEST Comment INFO: Result Comment: The quantitative range of this assay is 15 IU/mL to 100 million IU/mL. Performed at: [facility] [id number] [place] Supervisor: Billy Markham MD, Phone: [phone] Performed By: #### L7000.7000 #### [facility] (refer to report for specific site) refer to report for address and phone number BASIC METABOLIC Collected: 08/15/2017 Status: F Source: [place] PROFILE (BMP) 9:57 AM [facility] REPOSITORY Order Comment: Order Date: 08/15/17 Order Info: 0667-1 - BMP Comments: STAT. CALL DR PATEL ON HIS CELL WITH RESULTS TYPE CODE TESTS RESULT OUT OF RANGE REFERENCE UNITS LAB L501.0100 70-110 mg/dL Normal GLU 100 LAB L501.1000 7-18 mg/dL Low BUN 2 LAB L501.1100 0.55-1.02 mg/dL Normal 0.59 CREAT,SERUM Result Comment: The validity of the calculated GFR AND GFRAA in patients over 70 years has not been determined. Clinical correlation is essential. LAB L501.1110 >60 mL/min Normal EST GFR 108 Result Comment: Non- GFR Calc LAB L501.1115 >60 mL/min Normal EST GFR - AA 131 Result Comment: GFR Calc LAB L501.1300 10-20 RATIO Low BUN/CRE 3.4 LAB L501.2200 8.5-10.1 mg/dL Normal CA 8.6 LAB L501.5300 136-145 mmol/L Low NA 134 LAB L501.5600 3.5-5.1 mmol/L Low K alert 2.7 Result Comment: Critical Result(s) Called at: 13:10:35 08/15/2017 by: Sampson to LAB L501.5900 98-107 mmol/L Normal CL 98 LAB L501.6100 21.0-32.0 mmol/L Normal CO2 29.0 LAB L501.6200 5-15 Normal GAP 7 Performed By: #### L500.2500 #### [facility] [address] [place], [address] CBC W/DIFF, AUTOMATED Collected: 08/13/2017 Status: F Source: JHONY 12:18 PM [facility] REPOSITORY Order Comment: Order Date: 05/21/17 Order Info: 0184-1 - CBCD TYPE CODE TESTS RESULT OUT OF RANGE REFERENCE UNITS LAB L100.1000 4.4-11.0 K/mm3 Normal WBC 10.0 LAB L100.1200 4.2-5.4 M/mm3 Low RBC 4.00 LAB L100.1300 12.0-15.0 g/dl Low HGB 10.2 LAB L100.1400 37-47 % Low HCT 31.0 LAB L100.1500 81-99 fL Low MCV 77.5 LAB L100.1600 27.0-32.0 pg Low MCH 25.5 LAB L100.1700 32-36 g/gl Normal MCHC 32.9 LAB L100.1810 11.6-14.6 % High RDW CV 16.9 LAB L100.1820 35.1-43.9 fl High RDW SD 45.9 LAB L100.1900 150-450 K/mm3 Normal PLT 240 LAB L100.2000 6.2-12.0 fl High MPV 12.2 LAB L100.2100 47-70 % Normal NEUT% 69.6 LAB L100.2200 19-41 % Low LY% 18.4 LAB L100.2300 0-10 % High MONO% 10.7 LAB L100.2400 0-5 % Normal EO% 0.4 LAB L100.2500 0-1 % Normal BASO% 0.3 LAB L100.2550 0.0-0.9 % Normal IM GRAN % 0.600 Result Comment: IG% - Immature Granulocytes (promyelocytes, myelocytes and metamyelocytes) > 1% indicates that a LEFT SHIFT is Present. LAB L100.2620 2.0-7.7 X10 3/uL Normal Absolute Neut 7.0 LAB L100.2720 0.83-4.51 X10 3/ul Normal Absolute Lymph 1.84 Performed By: #### L100.0100, L503.0105, L500.4050, L501.9520, L503.6075, L503.6150, L503.6550, L506.0250 #### [facility] [address] [place], [address] #### L3100.0625 #### [facility] (refer to report for specific site) refer to report for address and phone number VITAMIN B12 Collected: 08/13/2017 Status: F Source: [place] 12:18 PM [facility] REPOSITORY Order Comment: Order Date: 05/21/17 Order Info: 2132-9 - B12 Order Info: 83105-3 - VITD25 TYPE CODE TESTS RESULT OUT OF REFERENCE UNITS RANGE LAB L503.0105 211-911 pg/mL High Vitamin B12 1226 Performed By: #### L100.0100, L503.0105, L500.4050, L501.9520, L503.6075, L503.6150, L503.6550, L506.0250 #### [facility] [address] [facility]. [place], [place], [id number] #### L3100.0625 #### [facility] (refer to report for specific site) refer to report for address and phone number COMPREHENSIVE METABOLIC Collected: 08/13/2017 Status: F Source: JH[place]Y DAVIS 12:18 PM [facility] REPOSITORY Order Comment: Order Date: 05/21/17 Order Info: 0786-1 - CMP Order Info: 3016-3 - TSH Order Info: 2500-7 - TIBC Order Info: 2498-4 - FE Order Info: 2276-4 - ROSANNE Order Info: 2284-8 - FOLS Is Patient Taking Vitamins or Folic Acid Supplements? N TYPE CODE TESTS RESULT OUT OF RANGE REFERENCE UNITS LAB L501.0100 70-110 mg/dL Normal GLU 104 LAB L501.1000 7-18 mg/dL Low BUN 3 LAB L501.1100 0.55-1.02 mg/dL Normal 0.67 CREAT,SERUM Result Comment: The validity of the calculated GFR AND GFRAA in patients over 70 years has not been determined. Clinical correlation is essential. LAB L501.1110 >60 mL/min Normal EST GFR 94 Result Comment: Non- GFR Calc LAB L501.1115 >60 mL/min Normal EST GFR - AA 113 Result Comment: GFR Calc LAB L501.1300 10-20 RATIO Low BUN/CRE 4.5 LAB L501.1500 6.4-8.2 g/dL Normal T PROT 7.6 LAB L501.1800 3.4-5.0 g/dL Normal ALB 3.5 Result Comment: Please note revised Albumin AND Globulin reference range effective 2017. LAB L501.1950 2.2-4.2 g/dL Normal GLOB 4.1 LAB L501.2000 0.9-2.4 RATIO Normal A/G 0.9 LAB L501.2200 8.5-10.1 mg/dL Normal CA 8.6 LAB L501.4100 15-37 U/L Normal AST 36 LAB L501.4305 45-117 U/L Normal ALK P 62 LAB L501.4405 12-78 U/L Normal ALT 30 LAB L501.4600 0.20-1.00 mg/dL Normal T BILI 0.50 LAB L501.5300 136-145 mmol/L Normal NA 139 LAB L501.5600 3.5-5.1 mmol/L Low alert K 2.3 Result Comment: Critical Result(s) Called Francis PAULINO at: 15:47:24 08/13/2017 by: NAUN FONTANA LAB L501.5900 98-107 mmol/L Normal CL 100 LAB L501.6100 21.0-32.0 mmol/L Normal CO2 30.0 LAB L501.6200 5-15 Normal 9 GAP Performed By: #### L100.0100, L503.0105, L500.4050, L501.9520, L503.6075, L503.6150, L503.6550, L506.0250 #### [facility] [address] [facility]. [place], [place], [id number] #### L3100.0625 #### [facility] (refer to report for specific site) refer to report for address and phone number THYROID STIM HORMONE Collected: 08/13/2017 Status: F Source: JHONY (TSH) 12:18 PM [facility] REPOSITORY Order Comment: Order Date: 05/21/17 Order Info: 0786-1 - CMP Order Info: 301- - TSH Order Info: 2500-02 - TIBC Order Info: 2497-11 - FE Order Info: 2275-11 - ROSANNE Order Info: 228-8 - FOLS Is Patient Taking Vitamins or Folic Acid Supplements? N TYPE CODE TESTS RESULT OUT OF RANGE REFERENCE UNITS LAB L501.9520 0.358-3.74 uIU/mL Normal TSH 1.20 Performed By: #### L100.0100, L503.0105, L500.4050, L501.9520, L503.6075, L503.6150, L503.6550, L506.0250 #### [facility] [address] [facility] [place], [place], [id number] #### L3100.0625 #### [facility] (refer to report for specific site) refer to report for address and phone number IRON BINDING Collected: 08/13/2017 Status: F Source: JHONY DIAZ,TOTAL 12:18 PM [facility] REPOSITORY Order Comment: Order Date: 05/21/17 Order Info: 0786-1 - CMP Order Info: 3016-3 - TSH Order Info: 2500-02 - TIBC Order Info: 24903-07 - FE Order Info: 2275-11 - ROSANNE Order Info: 8 - FOLS Is Patient Taking Vitamins or Folic Acid Supplements? N TYPE CODE TESTS RESULT OUT OF RANGE REFERENCE UNITS LAB L503.6075 250-450 ug/dL Normal TIBC 387 Performed By: #### L100.0100, L503.0105, L500.4050, L501.9520, L503.6075, L503.6150, L503.6550, L506.0250 #### [facility] [address] [facility] [place], [place], [id number] #### L3100.0625 #### [facility] (refer to report for specific site) refer to report for address and phone number IRON Collected: 08/13/2017 Status: F Source: [place] 12:18 PM [facility] REPOSITORY Order Comment: Order Date: 05/21/17 Order Info: 0786-1 - CMP Order Info: 3016-3 - TSH Order Info: 2500-7 - TIBC Order Info: 24903-07 - FE Order Info: 2275-11 - ROSANNE Order Info: 8 - FOLS Is Patient Taking Vitamins or Folic Acid Supplements? N TYPE CODE TESTS RESULT OUT OF RANGE REFERENCE UNITS LAB L503.6150 50-170 ug/dL Low IRON 11 Performed By: #### L100.0100, L503.0105, L500.4050, L501.9520, L503.6075, L503.6150, L503.6550, L506.0250 #### [facility] [address] [facility] [place], [place], [id number] #### L3100.0625 #### [facility] (refer to report for specific site) refer to report for address and phone number FERRITIN Collected: 08/13/2017 Status: F Source: [place] 12:18 PM [facility] REPOSITORY Order Comment: Order Date: 05/21/17 Order Info: 0786-1 - CMP Order Info: 3016-3 - TSH Order Info: 2500-7 - TIBC Order Info: 2498-4 - FE Order Info: 4 - ROSANNE Order Info: 228-8 - FOLS Is Patient Taking Vitamins or Folic Acid Supplements? N TYPE CODE TESTS RESULT OUT OF RANGE REFERENCE UNITS LAB L503.6550 8-252 ng/mL Normal FERRITIN 91 Performed By: #### L100.0100, L503.0105, L500.4050, L501.9520, L503.6075, L503.6150, L503.6550, L506.0250 #### [facility] [address] [facility] [place], [address] #### L3100.0625 #### [facility] (refer to report for specific site) refer to report for address and phone number FOLATES, (FOLIC ACID) Collected: 08/13/2017 Status: F Source: [place] 12:18 PM [facility] REPOSITORY Order Comment: Order Date: 05/21/17 Order Info: 0786-1 - CMP Order Info: 3016-3 - TSH Order Info: 2500-7 - TIBC Order Info: 2498-4 - FE Order Info: 2276-4 - ROSANNE Order Info: 2284-8 - FOLS Is Patient Taking Vitamins or Folic Acid Supplements? N TYPE CODE TESTS RESULT OUT OF REFERENCE UNITS RANGE LAB L506.0250 3.1-55.4 ng/mL High FOLATES 69.60 Result Comment: Please note revised Folates reference range effective 2017. Performed By: #### L100.0100, L503.0105, L500.4050, L501.9520, L503.6075, L503.6150, L503.6550, L506.0250 #### [facility] [address] [facility] [place], [place], [id number] #### L3100.0625 #### [facility] (refer to report for specific site) refer to report for address and phone number HEPATITIS C ANTIBODIES Collected: 08/13/2017 Status: F Source: [place] 12:18 PM [facility] REPOSITORY Order Comment: Order Date: 05/21/17 Order Info: 0363-1 - HECAB TYPE CODE TESTS RESULT OUT OF RANGE REFERENCE UNITS LAB L3100.0650 0.0-0.9 s/co ratio High HEP C AB >11.0 Result Comment: Negative: < 0.8 Indeterminate: 0.8 - 0.9 Positive: > 0.9 The CDC recommends that a positive HCV antibody result be followed up with a HCV Nucleic Acid Amplification test (288405). Performed at: - [facility] [address] [id number] [place] Supervisor: Juan Flores PhD, Phone: [phone] RESULTS CALLED TO DANN SUTHERLAND 08/14/17 1643 Yeni Winchester. REPORT READ BACK BY SAME. Performed By: #### L100.0100, L503.0105, L500.4050, L501.9520, L503.6075, L503.6150, L503.6550, L506.0250 #### [facility] [address] [facility] [place], [place], [address] #### L3100.0625 #### [facility] (refer to report for specific site) refer to report for address and phone number CHEST PA AND LATERAL Observed: 08/13/2017 Status: F Source: [place] 12:09 PM [facility] REPOSITORY [facility] Imaging Services [address] [place] [address] Chest PA and Lateral MR#: [id number] Acct: [id number] Name: AICHA ROLLINS Rep #: [id number] : 1950 F 66 From: Homero Stevens DO PCP: Lul Patel MD Status: REG CLI Study: Chest PA and Lateral Date of Exam: 08/13/17 Exam# [id number] Ordering Dr: Robert Patel MD STUDY: X-RAY CHEST REASON FOR EXAM: Female, 66 years old. Influenza A. TECHNIQUE: PA and lateral views of the chest. COMPARISON: August 08, 2017. FINDINGS: There is improved inspiratory effort. There is chronic interstitial changes in the lungs without acute infiltrate or mass. There is no demonstrated pleural abnormality. Normal size heart. Normal mediastinum and alis. Normal visualized pulmonary arteries. Normal visualized aortic arch and descending thoracic aorta. There are diffuse degenerative changes of the visualized thoracic spine. Normal visualized ribs, clavicles, and shoulders. There is no demonstrated abnormality of the visualized soft tissue structures of the upper abdomen. RAD/Chest PA and Lateral IMPRESSION: No acute cardiopulmonary disease or major interval change. Electronically Signed: Homero Stevens DO at 12:05 EST Tel [phone], Service support , CC: Lul Patel MD Chief Knowledge Officer: Signed 12 LEAD ELECTROCARDIOGRAM Observed: 08/11/2017 Status: F Source: [place] 2:42 PM [facility] REPOSITORY [facility] Cardiovascular [place] [address] 12 Lead EKG 08/08/17 1710 MR#: [id number] Acct: [id number] Name: AICHA ROLLINS Makenzie Rep #: [id number] : 1950 66 From: Edy Siddiqi MD Attending Dr: Fabienne Honeycutt MD Status: DIS IN Ordering Dr: Analilia Todd MD Date: 08/08/17 Location: NE3 Sex: F C Admitted: 08/08/17 Test Reason : ALTERED LOC Blood Pressure : / mmHG Vent. Rate : 100 BPM Atrial Rate : 100 BPM P-R Int : 140 ms QRS Dur : 100 ms QT Int : 364 ms P-R-T Axes : 065 -50 077 degrees QTc Int : 469 ms Normal sinus rhythm Leftward axis Incomplete left bundle branch block Abnormal ECG Confirmed by DEVANG PICHARDO, EDY ([id number]), magazine editor MERLYN KAPLAN ([id number]) on 08/11/2017 2:42:01 PM Referred By: OSCAR/JERRY Confirmed By:EDY SIDDIQI MD 08/11/17 1442 Date Edy Siddiqi MD CC: Lul Patel MD Signed DISCHARGE SUMMARY Observed: 08/10/2017 Status: F Source: JHONY 3:42 PM [facility] REPOSITORY [facility] Medical Records Department [address] [place] [address] Discharge Summary 08/10/17 1122 MR#: [id number] Acct: [id number] Name: AICHA ROLLINS Rep #: [id number] : 1950 66 From: Fabienne Honeycutt MD PCP: Lul Patel MD Status: DIS IN Y Location: MS3 [id number] Discharge Date and Diagnosis Date of Admission: 08/08/17 Date of Discharge: 08/10/17 - Primary Discharge Diagnosis Active and Suspected Problems Influenza A (Acute) - Secondary Discharge Diagnosis Chronic Problems Rheumatoid arthritis (Chronic) Gastroesophageal reflux disease (Chronic) Von Willebrand disease (Chronic) Hep C (Chronic) Narcolepsy (Chronic) Anxiety and depression (Chronic) Hospital Course and Treatment Imaging Results: Impressions Chest X-Ray 08/08/17 16:48 IMPRESSION: No acute cardiopulmonary process. Electronically Signed: Larissa Gonzalez MD at 17:30 EST Tel , Service support , 08/08/17 17:00 Mucosa - Nasopharyngeal Influenza Types A,B Direct FA ([facility]) - Final Influenzae A Operations: None Procedures: None Summary of Care Provided: She Is a 66-year-old female with a past medical history of GERD, anxiety and depression, narcolepsy, hepatitis C (successfully treated), rheumatoid arthritis and von Willebrand disease was admitted on 08/08/2016 with history of cough, dyspnea, nasal congestion, rhinorrhea, fever and chills for the past 24 hours prior to admission with progressively worsening debility. She was found to be tachycardic in the ED with a heart rate of 106. Temperature in the ED was also 103 Fahrenheit and she was saturating at 90% on room air and the respiratory rate was 19. She had no leukocytosis with WBC of 10.9. Chest x-ray showed no acute process. She tested positive for influenza A in the ED. She was admitted and managed for acute influenza infection, on Tamiflu and Tylenol as well as hydrated with IV normal saline. She was also put on IV Solu-Cortef at stress doses as she was on chronic steroid use for rheumatoid arthritis. Patient stabilized, shortness of breath resolved and ambulatory pulse ox was 100%. Home medications were reviewed and reconciled. She was discharged home on 08/10/2017 with a prescription for 3 days of p.o. Tamiflu 75 mg twice daily to give a total course of 5 days. She is to follow-up with her PCP in 1 week. This note was generated with [employer] dictation software. It may contain incorrect words, spelling, and punctuation that were not noted in checking the note before signing. Discharge Diet: Low fat/ Low Cholesterol Discharge Activity: Return to Normal Activity May resume sexual activity in: No Restrictions Weight Bearing Status: Weight bearing as tolerated Call your doctor if you observe: Fever of 101 or Higher, Shortness of breath Home Medications: Medications to take at Discharge Doxepin HCl 50 mg PO QHS 05/18/16 Folic Acid 2 mg PO DAILY@0800 05/18/16 Hydroxychloroquine [Plaquenil] 400 mg PO DAILY 05/18/16 Leucovorin Calcium 15 mg PO QWEEK 05/18/16 Lisinopril [Zestril] 10 mg PO DAILY 05/18/16 Methotrexate Sodium/Pf [Methotrexate 25 mg/ml Vial] 18.75 mg SQ QWEEK 05/18/16 Omeprazole [Prilosec] 40 mg PO BID 05/18/16 PredniSONE 10 mg PO DAILY PRN 05/18/16 Venlafaxine HCl 75 mg PO DAILY 05/18/16 Adalimumab [Humira] 40 mg SQ Q14D 08/08/17 Armodafinil 150 mg PO DAILY 08/08/17 Oseltamivir Phosphate [Tamiflu] 75 mg PO BID 3 Days cap 08/10/17 Following Prescrptions Were Given to Patient: Oseltamivir Phosphate [Tamiflu] 75 mg PO BID 3 Days cap Primary Care Physician: Robert Patel MD [Primary Care Provider] - Please follow up with your Primary Care Physician in: one week Disposition: Home Minutes spent on discharge:: 35 Patient Condition:: Good Meaningful Use Info Meaningful Use Diagnoses (Choose all that apply): None applicable Code Visit Inpatient E AND M: 03124 Disch Hosp 08/10/17 0799 <Electronically signed by Fabienne Honeycutt MD> Date Fabienne Edge Signature (if applicable): Date CC: Lul Patel MD; Fabienne Honeycutt MD Signed DISCHARGE INSTRUCTION Observed: 08/10/2017 Status: F Source: JHONY 11:22 AM [facility] REPOSITORY [facility] Medical Records Department [address] [place] [address] Instructions for Home/Discharge Instructions 08/10/17 1121 MR#: [id number] Acct: [id number] Name: AICHA ROLLINS Rep #: [id number] : 1950 66 From: Fabienne Honeycutt MD PCP: Lul Patel MD Status: ADM IN - Discharge Diagnoses Current Active Problems: Current Active and Chronic Problems Anxiety and depression (Chronic) Influenza A (Acute) Reason(s) for Visit for Discharge Instructions: influenza infection You will use the following diet at home:: Calorie/Carbohydrate Controlled (specify 1200, 1400, etc) Your food should be the consistency of: Regular Your liquids should be the consistency of: Regular/Thin Discharge Activity: Return to Normal Activity May resume sexual activity in: No Restrictions Weight Bearing Status: Weight bearing as tolerated Call your doctor if you observe: Fever of 101 or Higher, Shortness of breath Allergies/Adverse Reactions: Allergies codeine Allergy (Verified 08/08/17 16:22) Hives morphine Allergy (Verified 08/08/17 16:22) Hives Opioids - Morphine Analogues Allergy (Verified 08/08/17 16:22) Hives amicar Adverse Reaction (Uncoded 05/18/16 10:26) Other sassafrass Adverse Reaction (Uncoded 05/18/16 10:26) Nausea/Vom/Diarrhea Medications to take at Discharge Doxepin HCl 50 mg PO QHS 05/18/16 Folic Acid 2 mg PO DAILY@0800 05/18/16 Hydroxychloroquine [Plaquenil] 400 mg PO DAILY 05/18/16 Leucovorin Calcium 15 mg PO QWEEK 05/18/16 Lisinopril [Zestril] 10 mg PO DAILY 05/18/16 Methotrexate Sodium/Pf [Methotrexate 25 mg/ml Vial] 18.75 mg SQ QWEEK 05/18/16 Omeprazole [Prilosec] 40 mg PO BID 05/18/16 PredniSONE 10 mg PO DAILY PRN 05/18/16 Venlafaxine HCl 75 mg PO DAILY 05/18/16 Adalimumab [Humira] 40 mg SQ Q14D 08/08/17 Armodafinil 150 mg PO DAILY 08/08/17 Oseltamivir Phosphate [Tamiflu] 75 mg PO BID 3 Days cap 08/10/17 The following prescriptions were given: Oseltamivir Phosphate [Tamiflu] 75 mg PO BID 3 Days cap Primary Care Physician: Robert Patel MD [Primary Care Provider] - Please follow up with your Primary Care Physician in: one week Proposed Discharge Date: 08/10/17 08/10/17 1122 <Electronically signed by Fabienne Honeycutt MD> Date Fabienne Honeycutt MD CC: Lul Patel MD EMERGENCY DEPARTMENT Observed: 08/09/2017 Status: F Source: [place] SUMMARY 1:01 AM [facility] Medical Records Department [address] [place] [address] Emergency Department Summary 08/08/17 1823 MR#: [id number] Acct: [id number] Name: AICHA ROLLINS Rep #: [id number] : 1950 66 From: Analilia Todd MD PCP: Lul Patel MD Status: ADM IN - ER Visit Summary Date of Service: 08/08/17 Chief Complaint: Fever, weakness, cough History of Present Illness: The patient is a 66 F who per her developed cough last evening. She laid in her chair all day today. She has not taken any of her medications today. Physical Examination: Blood pressure is 151/75, temperature 103, heart rate 106, respiratory rate 19, pulse ox 91% on room air. Patient's lying with her eyes closed. She is in no acute distress. Head neck examination was no external sign of trauma. Pupils are equal and reactive. Heart is regular rate and rhythm. Lungs are clear. Abdomen is soft and nontender. Hypoactive bowel sounds are noted throughout. Patient strong distal pulses throughout. Neuro exam: Patient will raise her eyebrows to voice but will not answer questions for me. When I open her eyelids for her she will look around the room. Test Results: Portable chest x-ray shows no acute process. EKG is sinus at 100. No sign of acute ischemia. LVH is noted. CBC was normal white count with 80% neutrophils. Hemoglobin 11.1. Chemistry studies unremarkable. LFTs normal. Lactate is 1.1. Influenza swab is positive for influenza A. Blood cultures have been obtained. Emergency Department Course and Treatment: Patient was initially given rectal Tylenol and IV fluids. On repeat evaluation she is lying on her side. She will open her eyes to voice. She states she thinks she can take liquid medicine so therefore liquid Tamiflu has been ordered for her. I spoke with the hospitalist regarding admission. Treatment Plan: [] Disposition: Admit Impression: Influenza A This note was generated with [employer] dictation software. It may contain incorrect words, spelling, and punctuation that were not noted in review of the chart prior to signing ED Disposition - Plan for ED Patient: Chief Complaint: Alt LOC Referrals: Robert Patel MD [Primary Care Provider] - What to do if you have Problems For any increased pain, shortness of breath, bleeding, nausea or vomiting, chest pain, or any unexpected problems, contact your Primary Care Provider. Call [facility] ([phone]) or report to the closest Emergency Room. Call 911 if necessary. 08/09/17 0101 <Electronically signed by Analilia Todd MD> Date Analilia Todd MD Cosigner Signature (If Indicated): Date CC: Lul Patel MD URINALYSIS, COMPLETE Collected: 08/08/2017 Status: F Source: [place] 9:55 PM [facility] REPOSITORY Order Comment: Order Date: 08/08/17 Has pt arrived? N How was Urine Obtained? CLEAN CATCH TYPE CODE TESTS RESULT OUT OF RANGE REFERENCE UNITS LAB L400.3000 Yellow COLOR Normal Yellow LAB L400.3050 Clear Normal CLARITY Clear LAB L400.3200 Normal mg/dl Normal GLUCOSE, UR Normal LAB L400.3300 Negative mg/dL Normal BILIRUBIN URINE Negative LAB L400.3400 Negative mg/dl High 50 KETONE UR LAB L400.3465 1.002-1.030 Normal SP.GR. DIPSTX 1.025 LAB L400.3550 5.0 - 8.0 pH UR Normal 6.0 LAB L400.3600 Negative mg/dl High PROT 30 DIPSTX LAB L400.3700 Normal mg/dl Normal UROBILI Normal LAB L400.3750 Negative Normal NITRITE UR Negative LAB L400.3780 Negative /ul High 25 OCCULT BLOOD-UR LAB L400.3800 Negative /ul High LEUK ESTERASE 100 LAB L400.4050 0-5 /hpf WBC Normal 0-5 SEEN LAB L400.4100 0-5 /hpf 0 Normal RBC-UA SEEN LAB L400.4150 5-10 /hpf SQUAM Normal EPI 0-5 SEEN LAB L400.4300 None Seen /hpf 0 Normal BACTERIA SEEN LAB L400.4350 <or=2+ /hpf 0 Normal MUCUS, URINE SEEN Performed By: #### L400.0001 #### [facility] [address] [facility] [place], [place], [address] HISTORY AND PHYSICAL Observed: 08/08/2017 Status: F Source: [place] EXAM 7:11 PM [facility] REPOSITORY [facility] Medical Records Department [address] [place] [place] [address] History and Physical 08/08/17 1841 MR#: [id number] Acct: [id number] Name: AICHA ROLLINS Makenzie Rep #: [id number] : 1950 66 From: Jennifer Coleman PCP: Lul Patel MD Status: ADM IN Y Location: MS3 LG526-3 Problem List (1) Anxiety and depression Status: Chronic (2) Gastroesophageal reflux disease Status: Chronic Qualifiers: Esophagitis presence: esophagitis presence not specified Qualified Code(s): K21.9 - Gastro-esophageal reflux disease without esophagitis (3) Hep C Status: Chronic (4) Narcolepsy Status: Chronic Qualifiers: Narcolepsy type: due to underlying condition without cataplexy Qualified Code(s): G47.429 - Narcolepsy in conditions classified elsewhere without cataplexy (5) Rheumatoid arthritis Status: Chronic Qualifiers: Rheumatoid arthritis location: unspecified site Rheumatoid factor presence: unspecified presence Qualified Code(s): M06.9 - Rheumatoid arthritis, unspecified (6) Von Willebrand disease Status: Chronic (7) Influenza A Status: Acute History of Present Illness Date of Admission: 08/08/17 Chief Complaint: Cough, dyspnea, fever, chills The patient is a 66 y/o F w/ PMHx: Narcolepsy, Anxiety and Depression, Overweight, Hx Hepatitis C, Rheumatoid Arthritis, GERD, Von Willebrand who presents to the [facility] ED on 08/08/16w/ history of onset cough, dyspnea, congestion, rhinorrhea, myalgia, arthralgia, fever and chills x 24 hours, progressively worsening with severe debility. In the ED work- up included T 103, HR 106, BP 151/75, RR 19, 90% on RA, CBC w/ WBC 10.9, Hgb 11.1, Plts 266 with L shift, CMP w/ Na 134, CXR without acute process, Bld Cx x 2 obtained in the ED, Influenza rapid w/ + Influenza A. In the ED patient administered tylenol, tamiflu, NS. Past Medical History Past Medical History (Chronic Problems): Chronic Problems Rheumatoid arthritis (Chronic) Gastroesophageal reflux disease (Chronic) Von Willebrand disease (Chronic) Hep C (Chronic) Narcolepsy (Chronic) Anxiety and depression (Chronic) Allergies codeine Allergy (Verified 08/08/17 16:22) Hives morphine Allergy (Verified 08/08/17 16:22) Hives Opioids - Morphine Analogues Allergy (Verified 08/08/17 16:22) Hives amicar Adverse Reaction (Uncoded 05/18/16 10:26) Other sassafrass Adverse Reaction (Uncoded 05/18/16 10:26) Nausea/Vom/Diarrhea Home Medications: Ambulatory Orders Medication Instructions Recorded Doxepin HCl 50 mg PO QHS 05/18/16 Folic Acid 2 mg PO DAILY@0800 05/18/16 Hydroxychloroquine [Plaquenil] 400 mg PO DAILY 05/18/16 Leucovorin Calcium 5 mg PO MOTHSA 05/18/16 Surgical History: - - L Breast biopsy, D AND C, Cholecystectomy, Appendectomy. 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 Tobacco Use: Non-smoker Alcohol: None Drugs: None - *Family History Maternal History Items: Cancer - utine cancer Paternal History Items: No pertinent history Review of Systems Constitutional: Reports: Anorexia, Chills, Fever, Malaise, Weakness, Fatigue. Denies: Weight Change HEENT: Reports: Nasal Congestion, Post Nasal Drip, Sinus Congestion, Sinus Drainage, Sore Throat. Denies: Head Aches Cardiovascular: Denies: Chest Pain, Palpitations Respiratory: Reports: Cough, Shortness of Breath, Shortness of breath at rest, Shortness of breath upon exertion, Sputum production Gastrointestinal: Denies: Abdominal Pain, Nausea, Vomiting Genitourinary: Denies: Dysuria Musculoskeletal: Denies: Joint Pain, Joint Tenderness Skin: Denies: Rash, Wounds Neurological: Denies: Numbness, Tingling, Focal weakness Psychiatric: Reports: Anxiety, Depression. Denies: Homicidal Ideations, Suicidal Ideations Hematologic/ Lymphatic: Reports: Anemia, Easy Bleeding VTE Information - Inpt Only VTE Present on Admission: No VTE Mechan Device Prophylaxis: SCD's VTE Pharm Prophylaxis ordered?: No Reason prophylaxis not ordered:: Medical Contraindication Patient Problems: Active and Suspected Problems Influenza A (Acute) Subjective: Seated upright in the ED bed, ill appearing, fatigued. Objective: Physical Examination: General: awake, alert, oriented x 3 and cooperative, seated upright in the ED bed, fatigued, less interactive. Skin: normal color, turgor, no icterus, cyanosis. HEENT: AT/NC, EOMI, PERRLA, dry MM, no carotid bruits or JVD noted. Lungs: Diminished BS BL, > bases, poor effort, no rales, ronchi or wheezing. Heart: Tachycardic with regular rhythm; no gallop, rub audible. Abdomen: soft, overweight, NTTP, ND, normal BS, no HSM. Extremities: no cyanosis, clubbing or edema. Neurological: patient awake, alert, oriented x 3; cognitive function intact but baseline flat affect per report; pupils equally reactive to light and accomodation; cranial nerves II-XII grossly normal, moving all 4 extremities but severely limited secondary to acute presentation, strength severely globally decreased. Psychiatric: affect appears fatigued, flat, no acute evidence of depressive or anxiety feelings. - Physical Exam Vital Signs Temp Pulse Resp BP Pulse Ox 103.0 F H 106 H 19 H 151/75 H 91 08/08/17 16:23 08/08/17 16:23 08/08/17 16:23 08/08/17 16:23 08/08/17 16:23 Oxygen Delivery Method Room Air Weight: 172 lb 9.951 oz Body Mass Index (BMI) 28.7 Finger Stick Blood Glucose 117 Microbiology Past 72 Hours 08/08/17 17:00 Influenza Types A,B Direct FA (BELL) - Final Mucosa - Nasopharyngeal Influenzae A Laboratory Tests Past 24 Hrs WBC 10.9 RBC 4.51 Hgb 11.1 L Hct 35.8 L MCV 79.4 L MCH 24.6 L MCHC 31.0 L RDW 17.3 H Assessment/Plan Active and Suspected Problems Influenza A (Acute) The patient is a 66 y/o F w/ PMHx: Narcolepsy, Anxiety and Depression, Overweight, Hx Hepatitis C, Rheumatoid Arthritis, GERD, Von Willebrand who presents to the [facility] ED on 08/08/16w/ history of onset cough, dyspnea, congestion, rhinorrhea, myalgia, arthralgia, fever and chills x 24 hours, progressively worsening with severe debility. (1) General Malaise, Cough, Fever, General Debility secondary to Influenza A Viral Syndrome: CXR in the ED w/ no acute findings, Influenza A positive. Maintained on Tamiflu. Will admit to MS on telemetry, maintain on oxygen with wean as tolerated, continue ATC duonebs, PRN albuterol, HOB, IS parameters w/ pending Bld cx x 2 from ED. PT, OT for discharge planning, fall precautions. (2) Narcolepsy: Chronic flat affect associated, HOB, IS, maintain on home armodafinil. (3) Rheumatoid Arthritis on Chronic Steroids: Hold Humira, continue home plaquenil, SUTTON, stress dose steroids given chronic oral prednisone given acute presentation. (4) GERD: Famotidine. (5) Von Willebrand Disease: Hold chemoprophylaxis, history severe bleeding w/ surgical interventions. (6) Hx Hepatitis C: Noted treatment successful. (7) DVT Prophylaxis: SCDs, defer chemoprophylaxis as noted. Code Visit Inpatient E AND M: 57030 Init Hosp L3 08/08/171910 <Electronically signed by Jennifer Coleman > Date Jennifer Coleman Cosigner Signature: Date (if applicable) CC: Jennifer Coleman; Lul Patel MD Signed Observed: 08/08/2017 Status: F Source: [place] CULTURE, BLOOD (WB) 5:05 PM [facility] REPOSITORY BC No growth in 5 days. Performed By: #### M200.1000 #### [facility] [address] [place], [place], [address] Observed: 08/08/2017 Status: F Source: [place] INFLUENZA A+B (RAPID 5:00 PM [facility] OFE) REPOSITORY FLU A/B Rapid Negative test results should be confirmed by culture. Order Rapid Viral Culture for Influenzae A+B ([id number]) if clinically indicated. Copy of report sent to Infection Control Printer MS#[id number] 08/08/17 1731 DEJON. RESULTS CALLED TO NeGoBuYARBERT 08/08/17 1732 Isadora Andino. REPORT READ BACK BY SAME. Influenza Ag, Direct POSITIVE for the presence of INFLUENZA A Antigen only ORGANISM 1: INFLUENZAE A Performed By: #### M101.0101 #### [facility] [address] [place], [address] CBC W/DIFF, AUTOMATED Collected: 08/08/2017 Status: F Source: [place] 4:50 PM [facility] REPOSITORY TYPE CODE TESTS RESULT OUT OF RANGE REFERENCE UNITS LAB L100.1000 4.4-11.0 K/mm3 Normal WBC 10.9 LAB L100.1200 4.2-5.4 M/mm3 Normal RBC 4.51 LAB L100.1300 12.0-15.0 g/dl Low HGB 11.1 LAB L100.1400 37-47 % Low HCT 35.8 LAB L100.1500 81-99 fL Low MCV 79.4 LAB L100.1600 27.0-32.0 pg Low MCH 24.6 LAB L100.1700 32-36 g/gl Low MCHC 31.0 LAB L100.1810 11.6-14.6 % High RDW CV 17.3 LAB L100.1820 35.1-43.9 fl High RDW SD 49.0 LAB L100.1900 150-450 K/mm3 Normal PLT 266 LAB L100.2000 6.2-12.0 fl Normal MPV 11.2 LAB L100.2100 47-70 % High NEUT% 80.3 LAB L100.2200 19-41 % Low LY% 7.3 LAB L100.2300 0-10 % High MONO% 11.8 LAB L100.2400 0-5 % Normal EO% 0.0 LAB L100.2500 0-1 % Normal BASO% 0.3 LAB L100.2550 0.0-0.9 % Normal IM GRAN % 0.300 Result Comment: IG% - Immature Granulocytes (promyelocytes, myelocytes and metamyelocytes) > 1% indicates that a LEFT SHIFT is Present. LAB L100.2620 2.0-7.7 X10 3/uL High Absolute Neut 8.8 LAB L100.2720 0.83-4.51 X10 3/ul Low Absolute Lymph 0.80 Performed By: #### L100.0100 #### [facility] [address] [facility] [place], [address] CHEST 1 VIEW Observed: 08/08/2017 Status: F Source: [place] (PORTABLE) 4:50 PM [facility] REPOSITORY [facility] Imaging Services [address] [place] [address] Chest 1 View (Portable) MR#: [id number] Acct: [id number] Name: AICHA ROLLINS Rep #: [id number] : 1950 F 66 From: Larissa Gonzalez MD PCP: Lul Patel MD Status: REG ER Study: Chest 1 View (Portable) Date of Exam: 08/08/17 Exam# [id number] Ordering Dr: Analilia Todd MD STUDY: X-RAY CHEST REASON FOR EXAM: Female, 66 years old. Cough TECHNIQUE: Portable AP COMPARISON: March 30, 2013 and May 18, 2016 FINDINGS: No focal consolidation is seen. Allowing for differences in technique, there are grossly stable prominent interstitial markings within the mid and lower lungs. Normal size heart. Normal mediastinum and alis. Normal visualized pulmonary arteries. Normal visualized aortic arch and descending thoracic aorta. There are diffuse degenerative changes of the visualized thoracic spine. Normal visualized ribs, clavicles, and shoulders. There is no demonstrated abnormality of the visualized soft tissue structures of the upper abdomen. RAD/Chest 1 View (Portable) IMPRESSION: No acute cardiopulmonary process. Electronically Signed: Larissa Gonzalez MD at 17:30 EST Tel , Service support , CC: Lul Patel MD; Analilia Todd MD Chief Knowledge Officer: Signed BASIC METABOLIC Collected: 08/08/2017 Status: F Source: [place] PROFILE (BMP) 4:50 PM [facility] REPOSITORY TYPE CODE TESTS RESULT OUT OF RANGE REFERENCE UNITS LAB L501.0100 70-110 mg/dL Normal GLU 103 LAB L501.1000 7-18 mg/dL Normal BUN 13 LAB L501.1100 0.55-1.02 mg/dL Normal 1.00 CREAT,SERUM Result Comment: The validity of the calculated GFR AND GFRAA in patients over 70 years has not been determined. Clinical correlation is essential. LAB L501.1110 >60 mL/min Low EST GFR 59 Result Comment: Non- GFR Calc LAB L501.1115 >60 mL/min Normal EST GFR - AA 71 Result Comment: GFR Calc LAB L501.1255 ml/min Normal Estimated CRCL 50.47 LAB L501.1300 10-20 RATIO Normal BUN/CRE 13.0 LAB L501.2200 8.5-10 mg/dL Normal .1 CA 8.6 LAB L501.5300 136-14 mmol/L Low 5 NA 134 LAB L501.5600 3.5-5. mmol/L Normal 1 K 3.6 LAB L501.5900 98-107 mmol/L Normal CL 98 LAB L501.6100 21.0-3 mmol/L Normal 2.0 CO2 26.0 LAB L501.6200 5-15 Normal GAP 10 Performed By: #### L500.2500, L500.3400 #### [facility] [address] [place], [address] LIVER PROFILE Collected: 08/08/2017 Status: F Source: [place] 4:50 PM [facility] REPOSITORY TYPE CODE TESTS RESULT OUT OF RANGE REFERENCE UNITS LAB L501.1500 6.4-8.2 g/dL Normal T PROT 7.9 LAB L501.1800 3.4-5.0 g/dL Normal ALB 3.9 Result Comment: Please note revised Albumin AND Globulin reference range effective 2017. LAB L501.1950 2.2-4.2 g/dL Normal GLOB 4.0 LAB L501.4100 15-37 U/L Normal AST 20 LAB L501.4305 45-117 U/L Normal ALK P 85 LAB L501.4405 12-78 U/L Normal ALT 19 LAB L501.4600 0.20-1.00 mg/dL Normal T BILI 0.30 LAB L501.4700 0.00-0.30 mg/dL Normal D BILI 0.11 Performed By: #### L500.2500, L500.3400 #### [facility] [address] [place], [place], [address] LACTIC ACID Collected: 08/08/2017 Status: F Source: [place] 4:50 PM [facility] REPOSITORY Order Comment: Yes/No query for Sepsis Lactate Rule Y TYPE CODE TESTS RESULT OUT OF RANGE REFERENCE UNITS LAB L503.6005 0.4-2.0 mmol/L Normal LACTIC ACID 1.1 Performed By: #### L503.6005 #### [facility] [address] [place], [address] MAGNESIUM Collected: 08/08/2017 Status: F Source: [place] 4:50 PM [facility] REPOSITORY TYPE CODE TESTS RESULT OUT OF RANGE REFERENCE UNITS LAB L501.5200 1.8-2.4 mg/dL Normal MG 1.9 Performed By: #### L501.5200 #### [facility] [address] [place], [address] Observed: 08/08/2017 Status: F Source: [place] CULTURE, BLOOD (WB) 4:50 PM [facility] REPOSITORY BC No growth in 5 days. Performed By: #### M200.1000 #### [facility] [address] [place], [address] ALLERGIES ALLERGIES DATE TYPE / CODE NAME / CODE REACTION SEVERITY SOURCE Miscellaneous anticoagulants bleeding Unknown J[place] 8 Allergy/096592302( [facility] SNOMED CT) Hospital Repository Drug Opioids - Morphine Hives Unknown [place] 8 Allergy/295715865( Analogues/S77795123 [facility] SNOMED CT) 8(RXNORM) Hospital Repository Drug morphine/[id number] Hives Unknown [place] 8 Allergy/510318887( (RXNORM) [facility] SNOMED CT) Hospital Repository Drug codeine/T857421595( Hives Unknown Jhony 8 Allergy/011098420( RXNORM) [facility] SNOMED CT) Hospital Repository Miscellaneous amicar Other Unknown [place] 8 Allergy/748292071( [facility] SNOMED CT) Hospital Repository Miscellaneous sassafrass Nausea/Vom/Di Unknown [place] 8 Allergy/010036407( [facility] SNOMED CT) Hospital Repository ENCOUNTERS ENCOUNTERS ADMIT/DISCHARGE ACCOUNT ADMITTING ENCOUNTER LOCATION SOURCE NUMBER [facility] 07/06/2018 [id number] Ambulatory [place] 0 [facility] ing:MTLAB Repository 06/27/2018 [id number] Ambulatory BMSBuilding:W [place] 2 [facility] Repository 06/26/2018/ [id number] Ambulatory BMSBuilding:W [place] 8 5 [facility] Repository 06/26/2018/ [id number] White, Jennifer Inpatient [place] 8 9 [facility] ing:PCURoom: Repository [id number]: 1 06/26/2018 [id number] White, Ambulatory BMSBuilding:B [place] 8 [place] Repository 06/26/2018 [id number] White, Ambulatory BMSBuilding:B Jh[place] 3 MS.[facility] [place] Repository 06/26/2018 [id number] White, Ambulatory BMSBuilding:B J[place] 9 [facility] Repository 06/26/2018 [id number] , Ambulatory BMSBuilding:B [place] 0 [facility] Repository 06/26/2018 [id number] White, Ambulatory BMSBuilding:[facility] [place] 9 [facility] 06/26/2018 [id number] , Ambulatory BMSBuilding:B [place] 5 [place].[facility] Repository 06/26/2018 [id number] White, Ambulatory BMSBuilding:B [place] 5 MS.CF.[facility] [place] Repository 06/26/2018 [id number] , Ambulatory BMSBuilding:B Jhony 3 [facility] Repository 04/07/2018 [id number] Ambulatory Jhony Jhony 2 [facility] ing:MFPLAB Repository 02/27/2018 [id number] Ambulatory [place] 3 [facility] ing:MTLAB Repository 02/17/2018/ [id number] Agyepong, Inpatient [place] 8 6 [place] Encounter [facility] ing:PCURoom: Repository [id number]: 1 02/17/2018 [id number] Agyepong, Ambulatory BMSBuilding:B [place] 9 [place] [facility] Repository 02/17/2018 [id number] Ambulatory BMSBuilding:B Jhony 5 [place].[facility] Repository 12/22/2017 [id number] Ambulatory [place] J[place]ony 8 [facility] ing:MFPLAB Repository 11/20/2017 [id number] Ambulatory [place] 8 [facility] ing:MFPLAB Repository 10/28/2017 [id number] Ambulatory J[place]ony [place] 0 [facility] ing:MTLAB Repository 10/22/2017 [id number] Ambulatory Jhony Jhony 5 [facility] ing:MTLAB Repository 10/21/2017 [id number] Ambulatory Jhony [place] 3 [facility] ing:BD Repository 09/20/2017 [id number] Ambulatory [place] 2 [facility] ing:LAB Repository 08/25/2017 [id number] Ambulatory Jhony Jhony 2 [facility] ing:MTLAB Repository 08/21/2017 [id number] Ambulatory [place] 7 [facility] ing:MFPLAB Repository 08/15/2017/ [id number] Emergency [place] 8 3 [facility] ing:ED Repository 08/15/2017 [id number] Ambulatory [place] 3 [facility] ing:MTLAB Repository 08/13/2017 [id number] Ambulatory Jhony Jhony 1 [facility] ing:MTRAD Repository 08/08/2017/ [id number] Jennifer Coleman Inpatient [place] 8 4 Encounter [facility] ing:VX9Amwh: Repository [id number]: 1 08/08/2017 [id number] Ambulatory BMSBuilding:B Jhony 4 [place] Repository 08/08/2017/ [id number] Ambulatory BMSBuilding:W [place] 8 0 [facility] Repository PAYERS PAYERS ENCOUNTER GUARANTOR PAYER SUBSCRIBER SOURCE 07/06/2018 AICHA Banegas Primary AICHA Banegas [place] [id number] Insurance:MEDICARE PEDRODOB: [facility] PART A [facility] [id number] Number: Repository [id number]: 330 [id number] [phone] (HP) Date:2018-07-06 07/06/2018 Secondary AICHA J [place] Insurance:UNITED PEDRODOB: [facility] [id number] Hospital COMPolicy Number: Repository [id number] Date:1755-20-67YG [address] [place] [address] 33575QF: 07/06/2018 Tertiary NOT GIVENUNK [place] Insurance:SELF PAY [facility] Number: Effective Repository Date:2018-07-06 06/27/2018 AICHA J Primary AICHA J [place] [id number] Insurance:MEDICARE PEDRODOB: [facility] [id number] Number: Repository [id number]: 330 [id number] [phone] () Date:2018-06-26 06/27/2018 Secondary AICHA J [place] Insurance:UNITED PEDRODOB: [facility] [id number] Hospital COMPolicy Number: Repository [id number] Date:1572-77-28XD [address] [place] [address] 14688WT: 06/27/2018 Tertiary NOT GIVENUNK [place] Insurance:SELF PAY [facility] Number: Effective Repository Date:2018-06-27 06/26/2018 AICHA J Primary AICHA J [place] [id number] Insurance:MEDICARE PEDRODOB: [facility] [id number] Number: Repository [id number]: 330 [id number] [phone] () Date:2018-06-26 06/26/2018 Secondary AICHA J [place] Insurance:UNITED PEDRODOB: [facility] [id number] Hospital COMPolicy Number: Repository [id number] Date:[id number] [address] [place] [address] 41704UZ: 06/26/2018 Tertiary NOT GIVENUNK [place] Insurance:SELF PAY [facility] Number: Effective Repository Date:2018-06-26 06/26/2018 AICHA Banegas Primary AICHA J [place] [id number] Insurance:MEDICARE PEDRODOB: [facility] [id number] Number: Repository [id number]: 330 [id number] [phone] () Date:2018-06-26 06/26/2018 Secondary AICHA J [place] Insurance:UNITED PEDRODOB: [facility] [id number] Hospital COMPolicy Number: Repository [id number] Date:[id number] [address] [place] [address] 21648XD: 06/26/2018 Tertiary NOT GIVENUNK [place] Insurance:SELF PAY [facility] Number: Effective Repository Date:2018-06-26 06/26/2018 AICHA Banegas Primary AICHA J [place] [id number] Insurance:MEDICARE PEDRODOB: [facility] [id number] Number: Repository [id number]: 330 [id number] [phone] () Date:2018-06-26 06/26/2018 Secondary AICHA Banegas [place] Insurance:UNITED PEDRODOB: [facility] [id number] Hospital COMPolicy Number: Repository [id number] Date:1674-14-42[address] [place] [address] 22559FM: 06/26/2018 Tertiary NOT GIVENUNK [place] Insurance:SELF PAY [facility] Number: Effective Repository Date:2018-06-26 06/26/2018 AICHA J Primary AICHA J Jhony [id number] Insurance:MEDICARE PEDRODOB: [facility] [id number] Repository 14487Vrg: 330 [id number] [phone] () Date:2018-06-26 06/26/2018 Secondary AICHA J Jhony Insurance:UNITED PEDRODOB: [facility] INS [id number] Hospital COMPolicy Number: Repository [id number] Date:5167-50-07CR [address] [place] [address] 84306NP: 06/26/2018 Tertiary NOT GIVENUNK Jhony Insurance:SELF PAY [facility] Number: Effective Repository Date:2018-06-26 06/26/2018 AICHA J Primary AICHA J Jhony [id number] Insurance:MEDICARE PEDRODOB: [facility] [id number] Number[place] Repository [id number]: 330 [id number] [phone] () Date:2018-06-26 06/26/2018 Secondary AICHA J Jhony Insurance:UNITED PEDRODOB: [facility] [id number] Hospital COMPolicy Number: Repository [id number] Date:3286-35-80RA [address] [place] [address] 31415CX: 06/26/2018 Tertiary NOT GIVENUNK [place] Insurance:SELF PAY [facility] Number: Effective Repository Date:2018-06-26 06/26/2018 AICHA J Primary AICHA J Jhony [id number] Insurance:MEDICARE PEDRODOB: [facility] [id number] Number[place] Repository [id number]: 330 [id number] [phone] () Date:2018-06-26 06/26/2018 Secondary AICHA J [place] Insurance:UNITED PEDRODOB: [facility] [id number] Hospital COMPolicy Number: Repository [id number] Date:6439-46-97BH [address] [place] [address] 23751XP: 06/26/2018 Tertiary NOT GIVENUNK Jhony Insurance:SELF PAY [facility] Number: Effective Repository Date:2018-06-26 06/26/2018 AICHA J Primary AICHA J [place] [id number] Insurance:MEDICARE PEDRODOB: [facility] [id number] Number[place] Repository [id number]: 330 [id number] [phone] () Date:2018-06-26 06/26/2018 Secondary AICHA J [place] Insurance:UNITED PEDRODOB: [facility] [id number] Hospital COMPolicy Number: Repository [id number] Date:2990-69-29XN [address] [place] [address] 07019OU: 06/26/2018 Tertiary NOT GIVENUNK Jhony Insurance:SELF PAY [facility] Number: Effective Repository Date:2018-06-26 06/26/2018 AICHA J Primary AICHA J [place] [id number] Insurance:MEDICARE PEDRODOB: [facility] [id number] Number[place] Repository [id number]: (330 [id number] [phone] () Date:2018-06-26 06/26/2018 Secondary AICHA J Jhony Insurance:UNITED PEDRODOB: [facility] [id number] Hospital COMPolicy Number: Repository [id number] Date:8148-50-40BY [address] [place] [address] 20914XT: 06/26/2018 Tertiary NOT GIVENUNK Jhony Insurance:SELF PAY [facility] Number: Effective Repository Date:2018-06-26 06/26/2018 AICHA J Primary AICHA J [place] [id number] Insurance:MEDICARE PEDRODOB: [facility] [id number] Number[place] Repository 91050Glw: 330 [id number] [phone] () Date:2018-06-26 06/26/2018 Secondary AICHA J [place] Insurance:UNITED PEDRODOB: [facility] [id number] Hospital COMPolicy Number: Repository [id number] Date:8973-70-44KN [address] [place] [address] 96739XB: 06/26/2018 Tertiary NOT GIVENUNK Jhony Insurance:SELF PAY [facility] Number: Effective Repository Date:2018-06-26 06/26/2018 AICHA J Primary AICHA J Jhony [id number] Insurance:MEDICARE PEDRODOB: [facility] [id number] Number: Repository 91809Snu: 330 [id number] [phone] () Date:2018-06-26 06/26/2018 Secondary AICHA J Jhony Insurance:UNITED PEDRODOB: [facility] [id number] Hospital COMPolicy Number: Repository [id number] Date:5426-55-00CZ [address] [place] [address] 68463ZV: 06/26/2018 Tertiary NOT GIVENUNK [place] Insurance:SELF PAY [facility] Number: Effective Repository Date:2018-06-26 04/07/2018 AICHA J Primary AICHA J [place] [id number] Insurance:MEDICARE PEDRODOB: [facility] [id number] Number: Repository 72996Rkm: [phone] [id number] [phone] () Date:2018-04-07 04/07/2018 Secondary AICHA J Jhony Insurance:UNITED PEDRODOB: [facility] [id number] Hospital COMPolicy Number: Repository [id number] Date:5441-02-01XT [address] [place] [address] 45964XX: 04/07/2018 Tertiary NOT GIVENUNK [place] Insurance:SELF PAY [facility] Number: Effective Repository Date:2018-04-07 02/27/2018 AICHA J Primary AICHA J Jhony [id number] Insurance:MEDICARE PEDRODOB: [facility] [id number] Number: Repository 06816Ycf: 330 [id number] [phone] () Date:2018-02-27 02/27/2018 Secondary AICHA J Jhony Insurance:UNITED PEDRODOB: [facility] [id number] Hospital COMPolicy Number: Repository [id number] Date:0562-66-72UK [address] [place] [address] 89331CP: 02/27/2018 Tertiary NOT GIVENUNK [place] Insurance:SELF PAY [facility] Number: Effective Repository Date:2018-02-27 02/17/2018 AICHA J Primary AICHA J [place] [id number] Insurance:MEDICARE PEDRODOB: [facility] [id number] Number: Repository [id number]: 330 [id number] [phone] () Date:2018-02-17 02/17/2018 Secondary AICHA J [place] Insurance:UNITED PEDRODOB: [facility] [id number] Hospital COMPolicy Number: Repository [id number] Date:9485-73-81AY [address] [place] [address] 73983EY: 02/17/2018 Tertiary NOT GIVENUNK Jhony Insurance:SELF PAY [facility] Number: Effective Repository Date:2018-02-17 02/17/2018 AICHA J Primary AICHA J [place] [id number] Insurance:MEDICARE PEDRODOB: [facility] [id number] Number: Repository 57128Oyo: 330 [id number] [phone] () Date:2018-02-17 02/17/2018 Secondary AICHA J Jhony Insurance:UNITED PEDRODOB: [place] [id number] COMPolicy Number: Repository [id number] Date:6090-50-50AY [address] [place] [address] 37718GN: 02/17/2018 Tertiary NOT GIVENUNK Jhony Insurance:SELF PAY [facility] Number: Effective Repository Date:2018-02-17 02/17/2018 AICHA J Primary AICHA J Jhony [id number] Insurance:MEDICARE PEDRODOB: [facility] [id number] Number[place] Repository 12712Cci: 330 [id number] [phone] (HP) Date:2018-02-17 02/17/2018 Secondary AICHA J [place] Insurance:UNITED PEDRODOB: [facility] [id number] Hospital COMPolicy Number: Repository [id number] Date:9402-27-48CU [address] [place] [address] 36792DZ: 02/17/2018 Tertiary NOT GIVENUNK [place] Insurance:SELF PAY [facility] Number: Effective Repository Date:2018-02-17 12/22/2017 AICHA J Primary AICHA J Jhony [id number] Insurance:MEDICARE PEDRODOB: [facility] [id number] [place] [facility] 54144Cft: 330 [id number] [phone] () Date:2017-12-22 12/22/2017 Secondary AICHA J [place] Insurance:UNITED PEDRODOB: [facility] [id number] Hospital COMPolicy Number: Repository [id number] Date:5205-08-03UY [address] [place] [address] 08358TR: 12/22/2017 Tertiary NOT GIVENUNK Jhony Insurance:SELF PAY [facility] Number: Effective Repository Date:2017-12-22 11/20/2017 AICHA J Primary AICHA J Jhony [id number] Insurance:MEDICARE PEDRODOB: [facility] [id number] Number[place] Repository 19151Gef: 330 [id number] [phone] (HP) Date:2017-11-20 11/20/2017 Secondary AICHA J [place] Insurance:UNITED PEDRODOB: [facility] [id number] Hospital COMPolicy Number: Repository [id number] Date:1374-68-95KF [address] [place] [address] 34026OS: 11/20/2017 Tertiary NOT GIVENUNK [place] Insurance:SELF PAY [facility] Number: Effective Repository Date:2017-11-20 10/28/2017 AICHA J Primary AICHA J Jhony [id number] Insurance:MEDICARE PEDRODOB: [facility] [id number] Number[place]ository 40172Kuw: 330 [id number] [phone] () Date:2017-10-28 10/28/2017 Secondary AICHA J Jhony Insurance:UNITED PEDRODOB: [facility] [id number] Hospital COMPolicy Number: Repository [id number] Date:0049-00-45PR [address] [place] [address] 52542ZU: 10/28/2017 Tertiary NOT GIVENUNK [place] Insurance:SELF PAY [facility] Number: Effective Repository Date:2017-10-28 10/22/2017 AICHA J Primary AICHA J [place] [id number] Insurance:MEDICARE PEDRODOB: [facility] [id number] Number[place] Repository 98180Ncb: 330 [id number] [phone] () Date:2017-10-22 10/22/2017 Secondary AICHA J Jhony Insurance:UNITED PEDRODOB: [facility] [id number] Hospital COMPolicy Number: Repository [id number] Date:1336-49-32VQ [address] [place] [address] 46827JO: 10/22/2017 Tertiary NOT GIVENUNK Jhony Insurance:SELF PAY [facility] Number: Effective Repository Date:2017-10-22 10/21/2017 AICHA J Primary AICHA J [place] [id number] Insurance:MEDICARE PEDRODOB: [facility] [id number] Number: Repository 90607Cdy: 330 [id number] [phone] () Date:2017-09-25 10/21/2017 Secondary AICHA J Jhony Insurance:UNITED PEDRODOB: [facility] LIFE INS [id number] Hospital COMPolicy Number: Repository [id number] Date:1506-71-24BY [address] [place] [address] 02891DX: 10/21/2017 Tertiary NOT GIVENUNK [place] Insurance:SELF PAY [facility] Number: Effective Repository Date:2017-09-25 09/20/2017 AICHA J Primary AICHA J Jhony [id number] Insurance:MEDICARE PEDRODOB: [facility] [id number] Number[place] 42950Sis: 330 [id number] [phone] () Date:2017-09-20 09/20/2017 Secondary AICHA J [place] Insurance:UNITED PEDRODOB: [facility] INS [id number] Hospital COMPolicy Number: Repository [id number] Date:5203-38-45LL [address] [place] [address] 05621YR: 09/20/2017 Tertiary NOT GIVENUNK Jhony Insurance:SELF PAY [facility] Number: Effective Repository Date:2017-09-20 08/25/2017 AICHA J Primary AICHA J Jhony [id number] Insurance:MEDICARE PEDRODOB: [facility] [id number] Number[place]ository [id number]: 330 [id number] [phone] () Date:2017-08-25 08/25/2017 Secondary AICHA J Jhony Insurance:UNITED PEDRODOB: [facility] LIFE INS [id number] Hospital COMPolicy Number: Repository [id number] Date:9157-84-26EM [address] [place] [address] 69571YG: 08/25/2017 Tertiary NOT GIVENUNK [place] Insurance:SELF PAY [facility] Number: Effective Repository Date:2017-08-25 08/21/2017 AICHA J Primary AICHA J Jhony [id number] Insurance:MEDICARE PEDRODOB: Community [facility] PART A [facility] [id number] Number[place] Repository 01369Eio: 330 [id number] [phone] () Date:2017-08-21 08/21/2017 Secondary AICHA J Jhony Insurance:UNITED PEDRODOB: [facility] [id number] Hospital COMPolicy Number: Repository [id number] Date:5782-37-19WU [address] [place] [address] 17763WH: 08/21/2017 Tertiary NOT GIVENUNK Jhony Insurance:SELF PAY [facility] Number: Effective Repository Date:2017-08-21 08/15/2017 AICHA J Primary AICHA J [place] [id number] Insurance:MEDICARE PEDRODOB: [facility] [id number] 72400Ujl: 330 [id number] [phone] () Date:2017-08-15 08/15/2017 Secondary AICHA J Jhony Insurance:UNITED PEDRODOB: [facility] [id number] Hospital COMPolicy Number: Repository [id number] Date:4149-30-86LJ [address] [place] [address] 60327KC: 08/15/2017 Tertiary NOT GIVENUNK Jhony Insurance:SELF PAY [facility] Number: Effective Repository Date:2017-08-15 08/15/2017 AICHA J Primary AICHA J [place] [id number] Insurance:MEDICARE PEDRODOB: [facility] [id number] Number: Repository 45712Nag: 330 [id number] [phone] () Date:2017-08-15 08/15/2017 Secondary AICHA J [place] Insurance:UNITED PEDRODOB: [facility] [id number] Hospital COMPolicy Number: Repository [id number] Date:5358-98-35FV [address] [place] [address] 31678TS: 08/15/2017 Tertiary NOT GIVENUNK [place] Insurance:SELF PAY [facility] Number: Effective Repository Date:2017-08-15 08/13/2017 AICHA J Primary AICHA J [place] [id number] Insurance:MEDICARE PEDRODOB: [facility] [id number] Number: Repository 04975Rpa: 330 [id number] [phone] () Date:2017-08-13 08/13/2017 Secondary AICAH J [place] Insurance:UNITED PEDRODOB: [facility] [id number] Hospital COMPolicy Number: Repository [id number] Date:0483-58-28MI [address] [place] [address] 82857RK: 08/13/2017 Tertiary NOT GIVENUNK Jhony Insurance:SELF PAY [facility] Number: Effective Repository Date:2017-08-13 08/08/2017 AICHA J Primary AICHA J Jhony [id number] Insurance:MEDICARE PEDRODOB: [facility] [id number] Number: Repository 79621Gzd: 330 [id number] [phone] () Date:2017-08-08 08/08/2017 Secondary AICHA J [place] Insurance:UNITED PEDRODOB: [facility] [id number] Hospital COMPolicy Number: Repository [id number] Date:5689-28-28RD [address] [place] [address] 39343SN: 08/08/2017 Tertiary NOT GIVENUNK Jhony Insurance:SELF PAY [facility] Number: Effective Repository Date:2017-08-08 08/08/2017 AICHA J Primary AICHA J [place] [id number] Insurance:MEDICARE PEDRODOB: [facility] [id number] Number[place] Repository 24689Mem: 330 [id number] [phone] () Date:2017-08-08 08/08/2017 Secondary AICHA J Jhony Insurance:UNITED PEDRODOB: [facility] WORLD LIFE INS [id number] Hospital COMPolicy Number: Repository [id number] Date:2302-82-23CZ [address] [place] [address] 10564ZE: 08/08/2017 Tertiary NOT GIVENUNK Jhony Insurance:SELF PAY [facility] Number: Effective Repository Date:2017-08-08 08/08/2017 AICHA J Primary AICHA J [place] [id number] Insurance:MEDICARE PEDRODOB: [facility] [id number] Number: Repository 37728Ode: 330 [id number] [phone] () Date:2017-08-08 08/08/2017 Secondary AICHA J [place] Insurance:UNITED PEDRODOB: [facility] INS [id number] Hospital COMPolicy Number: Repository [id number] Date:4912-92-17KD [address] [place] [address] 21309AG: 08/08/2017 Tertiary NOT GIVENUNK [place] Insurance:SELF PAY [facility] Number: Effective Repository Date:2017-08-08
== END ==
PROVIDERS: Family Provider Family Medicine; PCP Family Medicine; Referring Provider Family Medicine; Visit Provider Family Medicine
DX: E87.6 Hypokalemia (principal)
CPT/HCPCS: 36415; 80048

== ENCOUNTER → 2018-08-10 17:16 | Outpatient (CLI) | payer MEDICARE, OTHER, SELFPAY ==
[2018-06-26 23:05] VITALS: BMI 20.4
--- NOTE | 2018-08-10 17:21 | RAD_ITS ---
STUDY: X-RAY - LUMBAR SPINE REASON FOR EXAM: Female, 67 years old. Pain TECHNIQUE: Five view(s) of the lumbar spine were obtained. COMPARISON: None FINDINGS: Normal lumbar lordosis. There is trace levoscoliosis. There is normal alignment of the vertebrae. The vertebral bodies show no significant abnormalities. Vertebral body heights are maintained. There is moderate disc space narrowing at L5-S1. There is atherosclerotic calcification of the abdominal aorta without a demonstrated aneurysm. RAD/L/S Spine Min 4 Views IMPRESSION: There are moderate degenerative disc changes at L5-S1. Electronically Signed: Analilia Reyes MD at 17:13 EST Tel Direct: [phone], Service support ,
== END ==
PROVIDERS: Family Provider Family Medicine; PCP Family Medicine; Referring Provider Family Medicine; Visit Provider Family Medicine
DX: M54.9 Dorsalgia, unspecified (principal)
CPT/HCPCS: 72110

== ENCOUNTER 2018-08-31 09:39 | Emergency (ER) | payer MEDICARE, OTHER, SELFPAY ==
[2018-06-26 23:05] VITALS: BMI 20.4
[2018-08-31 09:40] VITALS: BP 158/91; PULSE 89; RESP 16; TEMP 36.6; O2SAT 97; BMI 22.1
--- NOTE | 2018-08-31 09:57 | EKG12_ITS ---
Test Reason : ABN LABS Blood Pressure : / mmHG Vent. Rate : 072 BPM Atrial Rate : 072 BPM P-R Int : 154 ms QRS Dur : 084 ms QT Int : 398 ms P-R-T Axes : 088 -48 047 degrees QTc Int : 435 ms Normal sinus rhythm Left anterior fascicular block Septal infarct , age undetermined Abnormal ECG Confirmed by DEVANG PICHARDO, NEGRA ([id number]), editor publications MERLYN KAPLAN ([id number]) on 09/03/2018 8:12:41 AM Referred By: GOOD/TATI Confirmed By:NEGRA SIDDIQI MD
--- NOTE | 2018-08-31 09:57 | RAD_ITS ---
STUDY: X-RAY CHEST REASON FOR EXAM: Female, 67 years old. Seizures TECHNIQUE: Frontal and lateral views of the chest. COMPARISON: 06/26/2018 FINDINGS: The lungs are clear and expanded. There is no demonstrated pleural abnormality. Normal size heart. Normal mediastinum and alis. Normal visualized pulmonary arteries. Normal visualized aortic arch and descending thoracic aorta. There are diffuse degenerative changes of the visualized thoracic spine. Normal visualized ribs, clavicles, and shoulders. There is no demonstrated abnormality of the visualized soft tissue structures of the upper abdomen. RAD/Chest PA and Lateral IMPRESSION: No acute pulmonary findings. Electronically Signed: Billy Valencia MD at 10:40 EST Tel , Service support ,
--- NOTE | 2018-08-31 10:21 | ED.VISSUMM ---
- ER Visit Summary Date of Service: 08/31/18 Chief Complaint: Confusion History of Present Illness: The patient is a 67 F presenting for evaluation due to confusion. Family is concerned that the patient is developed confusion at about 430 this morning, and has signs and symptoms consistent with when she has electrolyte abnormalities. Patient had a history of going on interferon for treatment of hepatitis C, and since then has intermittently had issues with hypokalemia and hyponatremia. She has seizures associated with this. Patient apparently has been confused and been complaining of a headache which typically is a prodrome of this. She is not on any diuretics. She denies any infectious prodrome such as fevers chest pain cough shortness of breath nausea vomiting diarrhea dysuria or abdominal pain. Review of systems otherwise negative. Physical Examination: Vital signs are within normal limits, patient is afebrile. General: Patient is well-nourished well-developed and in no acute distress. Head: Normocephalic, atraumatic Eyes: Pupils equal round and reactive bilaterally, extra occular motion intact bialterally ENT: Moist mucous membranes Neck: Supple, no lymphadenopathy, no JVD, no meningismus CVS: Heart regular rate and rhythm, no murmurs, rubs or gallops, radial pulses 2+ bilaterally Resp: Respirations nondistressed, lung sounds clear bilaterally Abdomen: Soft, nontender, nondistended, no palpable masses, normal bowel sounds Back: Nontender Extremities: Nontender, atraumatic, active full range of motion, no peripheral edema Skin: warm, no rashes, no petechia Neuro: Alert and oriented x 4, CN 2-12 intact, no lateralizing neurological defecits Psyc: Normal affect Test Results: EKG demonstrates sinus rhythm at [address] segments, normal T waves, left anterior fascicular block and no significant changes from prior EKG. CBC chemistry urinalysis and troponin essentially unremarkable. Chest x-ray shows no evidence of acute pathology per my personal view and radiology. Emergency Department Course and Treatment: Patient presented secondary to an episode of confusion with concern for possible electrolyte abnormality. Patient was workup as noted above, was found to be negative. Patient does not appear to have delirium or altered sensorium at this point. I do not believe that she requires admission for observation. She has very good outpatient follow-up with both her neurologist and primary care office who actually said that they can get her in even at 11:00 today but they came to the emergency department instead. Patient will be discharged at this point. She will follow-up with primary care and neurology. Disposition: Discharge Impression: 1. Confusion, resolved This note was generated with [employer] dictation software. It may contain incorrect words, spelling, and punctuation that were not noted in review of the chart prior to signing ED Disposition - Plan for ED Patient: Disposition: Home or Assisted Living Chief Complaint: Abn Labs Diagnosis: Confusion Instructions: ED Confusion Referrals: Robert Patel MD [Primary Care Provider] - 3-5 Days
[2018-08-31 10:24] LABS: Absolute Lymphocyte Count 1.23 X10^3/ul (0.83-4.51); Basophil# 0.03 X10^3/uL; Basophil% 0.4 % (0-1); Eosinophil# 0.02 X10^3/uL; Eosinophils% 0.3 % (0-5); Hematocrit 36.9 % (37-47); Lymphocyte # 1.23 X10^3/ul (4.0); Lymphocyte % 16.2 % (19-41); Mean Corp Hgb Conc 32.5 g/gl (32-36); Mean Corpuscular Hgb 27.1 pg (27.0-32.0); Mean Corpuscular Volume 83.3 fL (81-99); Mean Platelet Vol. 11.8 fl (6.2-12.0); Monocyte# 0.29 X10^3/uL; Monocyte% 3.8 % (0-10); Neutrophil # 6.01 X10^3/uL (2.7-7.7); Platelet Count 307 K/mm3 (150-450); RBC Distribution Width CV 13.5 % (11.6-14.6); RBC Distribution Width SD 40.5 fl (35.1-43.9); Red Blood Count 4.43 M/mm3 (4.2-5.4); White Blood Count 7.6 K/mm3 (4.4-11.0)
[2018-08-31 10:26] LABS: POSITIVE COUNT NO; POSITIVE DIFFERENTIAL NO; POSITIVE MORPHOLOGY NO
[2018-08-31 10:39] LABS: Bacteria 0 SEEN /hpf (None Seen); Mucous, Urine 0 SEEN /hpf (<or=2+); Squamous Epithelial Cells - UA 0 SEEN /hpf (5-10)
[2018-08-31 10:40] LABS: Color, Urine Yellow (Yellow); Glucose, Dipstick Normal (Normal); Ketone-Dipstick Negative (Negative); Leukocyte Esterase-Dipstick Negative /ul (Negative); Nitrite-Dipstick Negative (Negative); Occult Blood-Urine Negative /ul (Negative); Protein-Dipstick Negative (Negative); Urine Bilirubin Dipstick Negative (Negative); Urine Clarity Clear (Clear); Urine Urobilinogen Normal (Normal)
--- NOTE | 2018-08-31 10:43 | ED.RN ---
REPORTS HAVING BRIEF TINGLING SENSATION STARTING FROM SHOULDERS GOING DOWN TO ANKLES/FEET. STS THIS IS SIMILAR PRIOR TO HAVING SEIZURES IN THE PAST. SEIZURE PADS IN PLACE. BILAT SIDERAILS UP.
[2018-08-31 10:49] LABS: Red Blood Cells-Urine 0-5 SEEN /hpf (0-5); White Blood Cells 0-5 SEEN /hpf (0-5)
[2018-08-31 10:57] LABS: Anion Gap 9 (5-15); BUN 5 mg/dL (7-18); BUN/Creat Ratio 6.8 RATIO (10-20); Calcium,Total 9.2 mg/dL (8.5-10.1); Chloride 102 mmol/L (98-107); Creatinine, Serum 0.74 mg/dL (0.55-1.02); EST Glomerular Filtration Rate 83 mL/min (>60); Est Glom Filt Rate - Afr Amer 101 mL/min (>60); Estimated Creatinine Clearance 47.79 ml/min; Glucose 92 mg/dL (74-106); Potassium 4.6 mmol/L (3.5-5.1); Sodium Level 137 mmol/L (136-145)
[2018-08-31 11:54] VITALS: BP 148/70; PULSE 75; RESP 12; O2SAT 96
== END 2018-08-31 11:55 | disposition home or self-care (01) ==
PROVIDERS: Emergency Provider Emergency Medicine; Family Provider Family Medicine; PCP Family Medicine
DX: R41.0 Disorientation, unspecified (principal); I44.4 Left anterior fascicular block; R51 Headache; I48.91 Unspecified atrial fibrillation; R56.9 Unspecified convulsions; K21.9 Gastro-esophageal reflux disease without esophagitis; Z86.19 Personal history of other infectious and parasitic diseases
CPT/HCPCS: 71046; 80048; 81001; 84484; 85025; 93005; 96360; 99284; J7030; J7040

== ENCOUNTER → 2018-09-03 14:06 | Outpatient (CLI) | payer MEDICARE, OTHER, SELFPAY ==
[2018-08-31 09:40] VITALS: BMI 22.1
[2018-09-03 15:22] LABS: Absolute Lymphocyte Count 3.02 X10^3/ul (0.83-4.51); Absolute Neutrophil Count 4.3 X10^3/uL (2.0-7.7); Basophil# 0.05 X10^3/uL; Basophil% 0.6 % (0-1); Eosinophil# 0.16 X10^3/uL; Eosinophils% 1.9 % (0-5); Hematocrit 34.5 % (37-47); Hemoglobin 11.3 g/dl (12.0-15.0); Lymphocyte # 3.02 X10^3/ul (4.0); Lymphocyte % 36.5 % (19-41); Mean Corp Hgb Conc 32.8 g/gl (32-36); Mean Corpuscular Hgb 27.5 pg (27.0-32.0); Mean Corpuscular Volume 83.9 fL (81-99); Mean Platelet Vol. 12.4 fl (6.2-12.0); Monocyte# 0.72 X10^3/uL; Monocyte% 8.7 % (0-10); Neutrophil % 52.1 % (47-70); Platelet Count 274 K/mm3 (150-450); RBC Distribution Width CV 13.7 % (11.6-14.6); RBC Distribution Width SD 40.9 fl (35.1-43.9); Red Blood Count 4.11 M/mm3 (4.2-5.4); White Blood Count 8.3 K/mm3 (4.4-11.0)
[2018-09-03 15:23] LABS: POSITIVE COUNT NO; POSITIVE DIFFERENTIAL NO; POSITIVE MORPHOLOGY NO
[2018-09-03 16:04] LABS: CRP < 2.90 mg/L (0.0-3.0); Thyroid Stim Hormone (TSH) 2.14 uIU/mL (0.358-3.74)
== END ==
PROVIDERS: Family Provider Family Medicine; PCP Family Medicine; Visit Provider Family Medicine
DX: B18.2 Chronic viral hepatitis C (principal); R19.7 Diarrhea, unspecified
CPT/HCPCS: 36415; 82533; 84443; 85025; 86140

== ENCOUNTER → 2018-09-11 07:54 | Outpatient (CLI) | payer MEDICARE, OTHER, SELFPAY ==
[2018-08-31 09:40] VITALS: BMI 22.1
[2018-09-15 11:31] LABS: Calprotectin, Stool 22 ug/g (0-120)
== END ==
PROVIDERS: Family Provider Family Medicine; PCP Family Medicine; Referring Provider Family Medicine; Visit Provider Family Medicine
DX: B18.2 Chronic viral hepatitis C (principal); R19.7 Diarrhea, unspecified
CPT/HCPCS: 83993; 87493

== ENCOUNTER → 2018-12-08 15:01 | Outpatient (CLI) | payer MEDICARE, OTHER, SELFPAY ==
--- NOTE | 2018-12-08 15:06 | RAD_ITS ---
STUDY: X-RAY CHEST REASON FOR EXAM: Female, 68 years old. Weight loss. TECHNIQUE: PA and lateral views of the chest. COMPARISON: PA and lateral chest x-ray August 31, 2018. FINDINGS: The lungs are clear and expanded. There is no demonstrated pleural abnormality. Normal size heart. Normal mediastinum and alis. Normal visualized pulmonary arteries. There is stable minor atherosclerotic calcification of the aortic arch. There are stable multilevel degenerative changes of the visualized thoracic spine. Normal visualized ribs, clavicles, and shoulders. There is no demonstrated abnormality of the visualized soft tissue structures of the upper abdomen. RAD/Chest PA and Lateral IMPRESSION: No acute cardiopulmonary disease. Electronically Signed: Steve Mars MD at 19:49 EDT , Service support ,
[2018-12-08 17:46] LABS: Absolute Lymphocyte Count 2.59 X10^3/ul (0.83-4.51); Absolute Neutrophil Count 2.6 X10^3/uL (2.0-7.7); Basophil# 0.02 X10^3/uL; Basophil% 0.3 % (0-1); Eosinophil# 0.21 X10^3/uL; Eosinophils% 3.6 % (0-5); Hematocrit 36.3 % (37-47); Hemoglobin 11.8 g/dl (12.0-15.0); Lymphocyte # 2.59 X10^3/ul (4.0); Mean Corp Hgb Conc 32.5 g/gl (32-36); Mean Corpuscular Hgb 27.1 pg (27.0-32.0); Mean Corpuscular Volume 83.3 fL (81-99); Mean Platelet Vol. 12.1 fl (6.2-12.0); Monocyte# 0.48 X10^3/uL; Monocyte% 8.1 % (0-10); Neutrophil # 2.58 X10^3/uL (2.7-7.7); Neutrophil % 43.8 % (47-70); Platelet Count 245 K/mm3 (150-450); RBC Distribution Width CV 15.5 % (11.6-14.6); RBC Distribution Width SD 46.6 fl (35.1-43.9); Red Blood Count 4.36 M/mm3 (4.2-5.4); White Blood Count 5.9 K/mm3 (4.4-11.0)
[2018-12-08 17:47] LABS: POSITIVE COUNT NO; POSITIVE DIFFERENTIAL NO; POSITIVE MORPHOLOGY NO
[2018-12-08 17:56] LABS: Erythrocyte Sedimentation Rate 5 mm/hr (0-30)
[2018-12-08 18:21] LABS: ALB/GLOB Ratio 1.2 RATIO (0.9-2.4); AST(SGOT) 26 U/L (15-37); Alanine Aminotransfer ALT/SGPT 24 U/L (13-56); Albumin, Serum 4.1 g/dL (3.2-5.0); Alkaline Phosphatase 68 U/L (45-117); Anion Gap 8 (5-15); BUN 6 mg/dL (7-18); BUN/Creat Ratio 7.5 RATIO (10-20); CRP 4.19 mg/L (0.0-3.0); Calcium,Total 9.1 mg/dL (8.5-10.1); Chloride 107 mmol/L (98-107); EST Glomerular Filtration Rate 76 mL/min (>60); Est Glom Filt Rate - Afr Amer 92 mL/min (>60); Globulin 3.5 g/dL (2.2-4.2); Glucose 86 mg/dL (74-106); Potassium 4.1 mmol/L (3.5-5.1); Prealbumin 18.1 mg/dL (20.0-40.0); Protein, Total 7.6 g/dL (6.4-8.2); Sodium Level 141 mmol/L (136-145); Thyroid Stim Hormone (TSH) 1.29 uIU/mL (0.358-3.74)
== END ==
PROVIDERS: Family Provider Family Medicine; PCP Family Medicine; Referring Provider Family Medicine; Visit Provider Family Medicine
DX: R63.4 Abnormal weight loss (principal)
CPT/HCPCS: 36415; 71046; 80053; 84134; 84443; 85025; 85652; 86140

== ENCOUNTER → 2018-12-25 09:47 | Outpatient (CLI) | payer MEDICARE, OTHER, SELFPAY ==
--- NOTE | 2018-12-25 09:53 | RAD_ITS ---
HISTORY: chronic diarrhea, has gotten worse in the last 6 months, weakness EXAMINATION/TECHNIQUE: 2 views abdomen. COMPARISON: 07/14/14 radiographs. FINDINGS: BOWEL GAS PATTERN: Non-obstructive. No bowel or stomach distention. FREE AIR: None visualized. ORGANOMEGALY: Not seen. CALCIFICATIONS: Atherosclerosis. Chronic pelvic calcification. No apparent gallstones or renal stones. LOWER CHEST: No acute pathology. BONES AND SOFT TISSUES: No acute pathology. RAD/Abd Inc Decub and/or Erect IMPRESSION: Unremarkable two views of the abdomen. at 2227 Reported and signed by: Sal Mayfield MD Electronically Signed: Sal Mayfield, at 22:26 EDT Tel , Service support ,
== END ==
PROVIDERS: Family Provider Family Medicine; PCP Family Medicine; Referring Provider Family Medicine; Visit Provider Family Medicine
DX: R19.7 Diarrhea, unspecified (principal)
CPT/HCPCS: 74019; 87177; 87209; 87493

== ENCOUNTER → 2019-01-01 15:31 | Outpatient (CLI) | payer MEDICARE, OTHER, SELFPAY ==
--- NOTE | 2019-01-01 16:14 | BI_ITS ---
MAMMOGRAPHY - BILATERAL SCREENING REASON FOR EXAM: Female, 68 years old. Routine annual screening examination. PERTINENT HISTORY: Aunt with breast cancer. TECHNIQUE: Digital bilateral breast jeanette (3D mammographic acquisition) in the CC and MLO projections. 2-D mediolateral oblique (MLO) and craniocaudad (CC) views of both breasts were obtained. CAD: Full Field Digital Mammography with Computer Added Detection was performed. COMPARISON: Comparison is made with prior study dated October 21, 2017 and August 23, 2016. FINDINGS: Breast Composition: There are scattered areas of fibroglandular density. There are no dominant masses or suspicious calcifications. Stable asymmetry of breast tissue with more breast tissue is seen in the upper lateral aspect of the left breast as compared to the right side. No other significant abnormalities are identified. There has been no significant change since the prior study. BI/SCREEN MAMM (CAD) W/JEANETTE BILAT IMPRESSION: Stable bilateral screening mammogram. Yearly follow-up mammogram recommended. (A) ASSESSMENT CATEGORY: BIRADS Category 2: Benign. A letter regarding these results will be sent to the patient by the facility within 30 days. Approximately 10% of breast cancers are not detected by mammography. A normal mammogram should not delay biopsy of a clinically suspicious abnormality. [id number] Electronically Signed: Chandana Maldonado, at 9:17 EDT , Service support ,
== END ==
PROVIDERS: Family Provider Family Medicine; PCP Family Medicine; Referring Provider Family Medicine; Visit Provider Family Medicine
DX: Z12.31 Encounter for screening mammogram for malignant neoplasm of breast (principal); Z78.0 Asymptomatic menopausal state; Z80.3 Family history of malignant neoplasm of breast
CPT/HCPCS: 77063; 77067

== ENCOUNTER → 2019-01-07 16:47 | Outpatient (CLI) | payer MEDICARE, OTHER, SELFPAY ==
--- NOTE | 2019-01-07 16:50 | CT_ITS ---
STUDY: CT ABDOMEN AND PELVIS WITH CONTRAST REASON FOR EXAM: Female, 68 years old. Weight loss RADIATION DOSAGE (If Supplied By Facility): CTDIvol = ( 16.61 ) mGy, DLP = ( 324.88 ) mGycm TECHNIQUE: Transaxial images were obtained from the dome of the diaphragm to the symphysis pubis without oral contrast. 100ML IV/Oral Isovue 300 was administered. Sagittal and coronal images were reconstructed. Individualized dose optimization techniques were used for this CT. COMPARISON: None. FINDINGS: The visualized lung bases are unremarkable. The visualized portions of the heart are within normal limits. Normal liver. There is non-visualization of the gallbladder, which may be secondary to either contraction or a prior cholecystectomy. Normal spleen. Normal pancreas. Normal bilateral adrenal glands. Normal right kidney. Normal left kidney. Normal visualized stomach. Normal small intestine. Normal colon. The appendix is visualized and appears normal. Normal abdominal aorta. Normal inferior vena cava. Normal retroperitoneum. Normal urinary bladder. Normal abdominal wall. Normal osseous structures. CT/Abdomen/Pelvis WITH Contrast IMPRESSION: Normal enhanced CT of the abdomen and pelvis. Electronically Signed: Reji Felix MD at 15:29 EDT Tel , Service support ,
== END ==
PROVIDERS: Family Provider Family Medicine; PCP Family Medicine; Referring Provider Family Medicine; Visit Provider Family Medicine
DX: R63.4 Abnormal weight loss (principal)
CPT/HCPCS: 74177; Q9967

== ENCOUNTER 2019-01-14 12:02 | Emergency (ER) | payer MEDICARE, OTHER, SELFPAY ==
[2019-01-14 12:05] VITALS: BP 110/61; PULSE 75; RESP 14; TEMP 36.6; O2SAT 97; BMI 20.2
[2019-01-14 12:39] VITALS: BP 121/70; BP 141/70; BP 143/65; PULSE 84; PULSE 86; PULSE 88
[2019-01-14 12:40] VITALS: BP 121/70; PULSE 86; RESP 18; O2SAT 99
[2019-01-14 13:09] LABS: Absolute Neutrophil Count 11.1 X10^3/uL (2.0-7.7); Basophil# 0.03 X10^3/uL; Basophil% 0.2 % (0-1); Eosinophil# 0.02 X10^3/uL; Eosinophils% 0.1 % (0-5); Hematocrit 36.8 % (37-47); Hemoglobin 12.2 g/dl (12.0-15.0); Mean Corp Hgb Conc 33.2 g/gl (32-36); Mean Corpuscular Hgb 27.9 pg (27.0-32.0); Monocyte# 1.38 X10^3/uL; Monocyte% 9.9 % (0-10); Neutrophil # 11.12 X10^3/uL (2.7-7.7); Neutrophil % 79.6 % (47-70); Platelet Count 285 K/mm3 (150-450); RBC Distribution Width CV 14.6 % (11.6-14.6); RBC Distribution Width SD 45.3 fl (35.1-43.9); Red Blood Count 4.38 M/mm3 (4.2-5.4)
[2019-01-14 13:10] LABS: POSITIVE COUNT NO; POSITIVE DIFFERENTIAL NO; POSITIVE MORPHOLOGY NO
[2019-01-14 13:15] LABS: International Normalized Ratio 1.1; Prothrombin Time (Protime)PT. 14.2 SECONDS (11.7-14.9)
[2019-01-14 13:26] LABS: AST(SGOT) 20 U/L (15-37); Alanine Aminotransfer ALT/SGPT 16 U/L (13-56); Albumin, Serum 3.9 g/dL (3.2-5.0); Alkaline Phosphatase 72 U/L (45-117); Anion Gap 5 (5-15); BUN 9 mg/dL (7-18); BUN/Creat Ratio 9.6 RATIO (10-20); Calcium,Total 9.1 mg/dL (8.5-10.1); Chloride 103 mmol/L (98-107); Creatinine, Serum 0.94 mg/dL (0.55-1.02); EST Glomerular Filtration Rate 63 mL/min (>60); Est Glom Filt Rate - Afr Amer 76 mL/min (>60); Globulin 3.8 g/dL (2.2-4.2); Glucose 99 mg/dL (74-106); Potassium 3.9 mmol/L (3.5-5.1); Protein, Total 7.7 g/dL (6.4-8.2); Sodium Level 135 mmol/L (136-145)
--- NOTE | 2019-01-14 13:30 | RAD_ITS ---
STUDY: X-RAY CHEST REASON FOR EXAM: Female, 68 years old. Hypotension. Chest pain. TECHNIQUE: PA and lateral views of the chest. COMPARISON: Comparison is made with prior study dated December 08, 2018. FINDINGS: Hyperinflation. The lungs are clear. There is no demonstrated pleural abnormality. Normal size heart. Normal mediastinum and alis. Normal visualized pulmonary arteries. There is atherosclerotic calcification of the aortic arch with tortuosity. There are diffuse degenerative changes of the visualized thoracic spine. Normal visualized ribs, clavicles, and shoulders. There is no demonstrated abnormality of the visualized soft tissue structures of the upper abdomen. RAD/Chest PA and Lateral IMPRESSION: Hyperinflation. The lungs are clear. Electronically Signed: Chandana Maldonado, at 14:11 EDT , Service support ,
[2019-01-14 14:21] VITALS: BP 135/58; PULSE 86; RESP 17; O2SAT 99
[2019-01-14] MEDS: 0.9% Normal Saline 1,000 ML 999 ML IV (14:23)
[2019-01-14 14:30] LABS: Bacteria 0 SEEN /hpf (None Seen); Mucous, Urine 0 SEEN /hpf (<or=2+); Red Blood Cells-Urine 0 SEEN /hpf (0-5); Squamous Epithelial Cells - UA 0 SEEN /hpf (5-10)
[2019-01-14 14:33] LABS: Color, Urine Yellow (Yellow); Glucose, Dipstick Normal (Normal); Ketone-Dipstick 15 mg/dl (Negative); Leukocyte Esterase-Dipstick 100 /ul (Negative); Nitrite-Dipstick Negative (Negative); Occult Blood-Urine Negative /ul (Negative); Protein-Dipstick 30 mg/dl (Negative); Urine Bilirubin Dipstick Negative (Negative); Urine Clarity Clear (Clear); Urine Urobilinogen Normal (Normal); Urine pH 6.5 (5.0 - 8.0)
[2019-01-14 14:43] LABS: White Blood Cells 5-10 SEEN /hpf (0-5)
[2019-01-14 14:44] LABS: Hyaline Cast 5-10 SEEN /lpf (0-5)
--- NOTE | 2019-01-14 15:38 | ED.DCSUM_ITS ---
- ER Visit Summary Date of Service: 01/14/19 Chief Complaint: General weakness History of Present Illness: The patient is a 68 F who presents with general weakness that became worse today. Patient states she has been feeling weak over the past couple days. Patient states that today she checked her blood pressure at home and her blood pressure machine would not register her blood pressure. Patient states she has been having some fatigue and general weakness. Patient states she also had a 50 pound weight loss over the past 3 months which her primary care physician is evaluating. Patient admits to some chills. Patient admits to some nausea but denies any vomiting. Patient does admit to a headach e. Patient admits to some pain over the upper abdomen and lower chest area. Patient denies any shortness of breath. Patient is a history of von Willebrand's disease. Daughter states that when the patient has had these episodes of weakness she was found to have internal bleeding. Patient denies any melena or hematochezia at the present time. Physical Examination: Vital signs are stable. Patient is afebrile. Patient is in no acute distress. Patient's blood pressure here was 110/61. Oral mucosa is pink and moist. Pupils are equal, round, and reactive to light below. Extraocular muscles are intact. Conjunctiva was clear. There is no conjunctival pallor noted. Oral mucosa is pink and moist. Neck is supple. Trachea is midline. There is no JVD noted. Heart was regular rate and rhythm. Lungs are clear and equal bilaterally. Abdomen is soft. Bowel sounds are normal. There is no tenderness. Cranial nerves II through XII are intact. There are no focal motor or sensory deficits noted. Test Results: CBC shows slight leukocytosis of 14.0. Comprehensive metabolic profile was normal. Troponin was normal. Urinalysis showed leukocyte esterase of 100 with 5-10 white blood cells. PA and lateral chest x-ray was obtained. There is hyperinflation but no acute cardiopulmonary process. Emergency Department Course and Treatment: Orthostatic vital signs were obtained. Patient's systolic blood pressure dropped by 20 from sitting to standing. Patient did get some dizziness with this. Patient was given IV fluids. Patient felt better on reevaluation. Since the patient was not having any dysuria, frequency, or hematuria I do not feel the urinalysis is suggestive of urinary tract infection. Patient was instructed to follow-up with her primary care physician in 3 to 5 days. Patient was instructed to return if worse in any way. Patient understood and was agreeable with the plan. All questions were answered. Disposition: Discharge home Impression: 1. General weakness 2. Orthostatic hypotension This note was generated with [employer] dictation software. It may contain incorrect words, spelling, and punctuation that were not noted in review of the chart prior to signing ED Disposition - Plan for ED Patient: Disposition: Home or Assisted Living Diagnosis: General weakness, Other specified hypotension Instructions: ED Hypotension All Causes Referrals: Robert Patel MD [Primary Care Provider] - 3-5 Days
[2019-01-14 15:51] VITALS: BP 149/76; RESP 20
== END 2019-01-14 15:54 | disposition home or self-care (01) ==
PROVIDERS: Emergency Provider Emergency Medicine; Family Provider Family Medicine; PCP Family Medicine
DX: R53.1 Weakness (principal); I95.1 Orthostatic hypotension; R63.4 Abnormal weight loss; R11.0 Nausea; D68.0 Von Willebrand disease; M06.9 Rheumatoid arthritis, unspecified; R51 Headache; M54.2 Cervicalgia; Z86.19 Personal history of other infectious and parasitic diseases
CPT/HCPCS: 71046; 80053; 81001; 84484; 85025; 85610; 85730; 93005; 96360; 99284; J7030; A4216

== ENCOUNTER → 2019-03-23 10:16 | Outpatient (CLI) | payer MEDICARE, OTHER, SELFPAY ==
[2019-03-23 12:37] LABS: Erythrocyte Sedimentation Rate 4 mm/hr (0-30)
[2019-03-23 12:40] LABS: Absolute Lymphocyte Count 2.37 X10^3/uL (0.83-4.51); Absolute Neutrophil Count 2.8 X10^3/uL (2.0-7.7); Basophil# 0.04 X10^3/uL; Basophil% 0.7 % (0-1); Eosinophil# 0.22 X10^3/uL; Eosinophils% 3.6 % (0-5); Hematocrit 37.8 % (37-47); Hemoglobin 12.1 g/dL (12.0-15.0); Lymphocyte # 2.37 X10^3/ul (4.0); Lymphocyte % 39.3 % (19-41); Mean Corpuscular Hgb 28.5 pg (27.0-32.0); Mean Corpuscular Volume 88.9 fL (81-99); Mean Platelet Vol. 11.7 fl (6.2-12.0); Monocyte# 0.58 X10^3/uL; Monocyte% 9.6 % (0-10); NRBC Flagged by Analyzer 0 % (0-5); Neutrophil % 46.5 % (47-70); Platelet Count 282 K/mm3 (150-450); RBC Distribution Width SD 45.1 fl (35.1-43.9); Red Blood Count 4.25 M/mm3 (4.2-5.4)
[2019-03-23 12:48] LABS: ALB/GLOB Ratio 1.1 RATIO (0.9-2.4); AST(SGOT) 24 U/L (15-37); Alanine Aminotransfer ALT/SGPT 19 U/L (13-56); Albumin, Serum 3.7 g/dL (3.2-5.0); Alkaline Phosphatase 79 U/L (45-117); Anion Gap 5 (5-15); BUN 8 mg/dL (7-18); BUN/Creat Ratio 10.1 RATIO (10-20); CRP < 2.90 mg/L (0.0-3.0); Calcium,Total 9.2 mg/dL (8.5-10.1); Chloride 108 mmol/L (98-107); Creatinine, Serum 0.79 mg/dL (0.55-1.02); EST Glomerular Filtration Rate 77 mL/min (>60); Est Glom Filt Rate - Afr Amer 93 mL/min (>60); Globulin 3.5 g/dL (2.2-4.2); Glucose 66 mg/dL (74-106); Potassium 4.5 mmol/L (3.5-5.1); Prealbumin 23.9 mg/dL (20.0-40.0); Protein, Total 7.2 g/dL (6.4-8.2); Sodium Level 142 mmol/L (136-145); Thyroid Stim Hormone (TSH) 1.48 uIU/mL (0.358-3.74)
[2019-03-23 12:53] LABS: Vitamin D,25 Hydroxy 62.3 ng/mL (29.95-100.01)
== END ==
PROVIDERS: Family Provider Family Medicine; PCP Family Medicine; Referring Provider Family Medicine; Visit Provider Family Medicine
DX: R63.4 Abnormal weight loss (principal); E55.9 Vitamin D deficiency, unspecified
CPT/HCPCS: 36415; 80053; 82306; 84134; 84443; 85025; 85652; 86140

== ENCOUNTER 2019-03-27 15:27 | Emergency (ER) | payer MEDICARE, OTHER, SELFPAY ==
[2019-03-27] VITALS (7 sets, daily range): BP systolic 146–171; BP diastolic 82–91; PULSE 68–79; RESP 15–25; TEMP 36.7; O2SAT 96–100; BMI 19.6
--- NOTE | 2019-03-27 15:50 | EKG12_ITS ---
Test Reason : CONFUSION Blood Pressure : / mmHG Vent. Rate : 076 BPM Atrial Rate : 076 BPM P-R Int : 160 ms QRS Dur : 092 ms QT Int : 382 ms P-R-T Axes : 063 -49 015 degrees QTc Int : 429 ms Normal sinus rhythm Left axis deviation Septal infarct , age undetermined Abnormal ECG Confirmed by HERMAN PICHARDO, JUAN J ([id number]), scientific publications editor MILLY HUGHES ([id number]) on 03/29/2019 11:31:19 AM Referred By: Robert Patel Confirmed By:JUAN J SUTTON MD
--- NOTE | 2019-03-27 15:50 | CT_ITS ---
STUDY: CT BRAIN WITHOUT CONTRAST REASON FOR EXAM: Female, 68 years old. Altered mental status with increasing confusion today RADIATION DOSAGE (If Supplied By Facility): CTDIvol = ( 44.99 ) mGy, DLP = ( 745.49 ) mGycm TECHNIQUE: Transaxial CT imaging of the brain was performed without administration of intravenous contrast material. Individualized dose optimization techniques were used for this CT. COMPARISON: No relevant priors. FINDINGS: Normal soft tissue structures. Normal calvarium. Normal size ventricles and extra-axial spaces for the patient's age. Normal white matter tracts of the cerebral hemispheres except for very minimal nonspecific periventricular white matter changes. Normal basal ganglia and thalami. Normal brainstem. Normal cerebellum. There is no intracranial hemorrhage. There are no findings of an acute ischemic infarction. Normal visualized paranasal sinuses. CT/Brain/Head without Contrast IMPRESSION: 1. No acute intracranial hemorrhage or mass effect. Stable exam. Electronically Signed: Niko Redman MD ([place]) at 16:26 EDT , Service support ,
--- NOTE | 2019-03-27 15:50 | RAD_ITS ---
STUDY: X-RAY CHEST REASON FOR EXAM: Female, 68 years old. Woke up confused this morning TECHNIQUE: PA and lateral views of the chest. COMPARISON: 01/14/2019 FINDINGS: EKG leads project over the chest. The lungs are clear and expanded. There is no demonstrated pleural abnormality. Normal size heart. Normal mediastinum and alis. Normal visualized pulmonary arteries. There is atherosclerotic calcification of the aortic arch with tortuosity. Normal visualized thoracic spine. Normal visualized ribs, clavicles, and shoulders. There is no demonstrated abnormality of the visualized soft tissue structures of the upper abdomen. RAD/Chest PA and Lateral IMPRESSION: No acute cardiopulmonary process. Electronically Signed: Niko Redman MD (Brooks) at 16:27 EDT , Service support ,
--- NOTE | 2019-03-27 15:52 | ED.VIS.STROK ---
History of Present Illness Chief Complaint: Confusion Informant: Patient, Family Onset: Hours - 1 Quality and Location: Expressive Aphasia Onset: about an hour prior to arrival Current Severity: Mild Maximum Severity: Severe Worsened by: nothing Relieved by: nothing Associated Symptoms: Headache - mild. Negative for: Nausea, Vomiting, Chest Pain Narrative: Patient has had seizures for the last 3 years or so that started spontaneously and are of unknown cause. Every time she has seizures it seems that her potassium is low, which is why she is on supplementation. Today, she woke up and basically has been groggy but was not confused. She was sleeping off and on, they noticed that she was confused when she was in her recliner and having trouble putting her slippers on, looking like she did not know what to do. At some point shortly thereafter, she had about 5 seconds of what look like convulsions in all 4 extremities but she did not lose consciousness. This is unlike the seizures that she has had in the past with her full body tonic-clonic shaking for a minute or 2 and full loss of consciousness. After she got done shaking for 5 seconds, she did appear to be postictal for maybe 10 minutes, sleepy, eyes open but spacey and unresponsive, then having trouble speaking, which then resolved. Since then, she has been seemingly confused and a little somnolent. When this has happened in the past, she has subsequently had her usual seizures, sometimes multiple in a row. The only states that has yet to happen today. She has a history of von Willebrand's disease. She has had no recent head injury, falls, or illnesses. She takes Vimpat for seizures and has been compliant with it, and takes no other medications for her seizures. - Past Medical History (1) PAF (paroxysmal atrial fibrillation) Status: Chronic (2) Seizure Status: Chronic (3) Anxiety and depression Status: Chronic (4) Gastroesophageal reflux disease Status: Chronic (5) Narcolepsy Status: Chronic (6) Rheumatoid arthritis Status: Chronic (7) Von Willebrand disease Status: Chronic Past Medical History - Allergies and Home Meds Allergies/Adverse Reactions: Allergies codeine Allergy (Verified 03/27/19 15:33) Hives morphine Allergy (Verified 03/27/19 15:33) Hives Opioids - Morphine Analogues Allergy (Verified 03/27/19 15:33) Hives anticoagulants Allergy (Uncoded 01/14/19 12:04) Bleeding amicar Adverse Reaction (Uncoded 01/14/19 12:04) Other sassafrass Adverse Reaction (Uncoded 01/14/19 12:04) Nausea/Vom/Diarrhea Primary Care Physician: Robert Patel MD [Primary Care Provider] - Surgical History: - - L Breast biopsy, D&C, Cholecystectomy, Appendectomy. Lives: With Family Smoking Status: Never smoker Drugs: None - Family History Maternal Family History: Reports: Cancer - Uterine CA. Paternal Family History: Reports: - - No marked paternal family history including HD, DM, CA. Review of Systems General: Reports: Malaise. Denies: Chills, Fever, Sweats Eyes: Denies: Visual changes - bilaterally, Diplopia ENT: Denies: Rhinorrhea, Sore throat Cardiovascular: Denies: Chest pain, Palpitations Respiratory: Denies: Dyspnea, Cough, Dyspnea on exertion Gastrointestinal: Reports: Abdominal pain - Mild periumbilical. Denies: Nausea, Vomiting, Diarrhea, Melena, Hematochezia Genitourinary: Denies: Dysuria, Hematuria, Frequency Musculoskeletal: Denies: Neck pain, Back pain, Swelling, Extremity Pain Skin: Denies: Rash, Wounds Neurological: Denies: Headache, Weakness, Numbness STROKE Vital Signs/Narrative: Vital Signs Temp Pulse Resp BP Pulse Ox 03/27/19 15:47 70 18 158/84 H 98 03/27/19 15:30 98.1 F 68 16 171/82 H 100 Inital Vital Signs reviewed: Yes - NIHSS Initial 1a Level of Consciousness: 0 1b LOC Questions (Score 2 if aphasic/stupor): 0 1c LOC Commands (Only score 1st attempt): 0 2 Best Gaze (If aphasic, use reflexive mvmts.): 0 3 Visual: 0 4 Facial Palsy: 0 5 Motor Arm Right (UN = amputation/fusion): 0 5 Motor Arm Left: 0 6 Motor Leg Right: 0 6 Motor Leg Left: 0 7 Limb ataxia (Only + if out of proportion): 0 8 Sensory (Aphasia/stupor=0 or 1, coma=2): 0 9 Best Language: 0 10 Dysarthria (mute, coma=2, intubated=UN): 0 11 Extinction and Inattention (only scored if +): 0 Total Score: 0 General: Well nourished, Well developed Head: Normocephalic, Atraumatic Eyes: Perrl, EOMI ENT: Moist mucous membranes, No rhinorrhea Neck: Supple, Nontender, No lymphadenopathy, No JVD, - - no carotid bruits Cardiovascular: Regular rate, Regular rhythm - occasional irregularity, No murmurs, Normal S1, Normal S2. Negative for: Tachycardia Respiratory: No distress, CTA bilaterally, Chest nontender Abdomen: Soft, Nontender, Nondistended, Normal bowel sounds Back: Nontender, Normal Inspection Extremities: Nontender, No edema Skin: Normal color, No rash, No Trauma Neurological: Alert - yet a little somnolent; GCS 15, Oriented x3, Cranial nerves II-XII grossly intact, Normal Strength, Normal Sensation Psychological: - - flat affect Diagnostic/Tx/Re-eval Impressions Brain CT 03/27/19 15:50 IMPRESSION: 1. No acute intracranial hemorrhage or mass effect. Stable exam. Electronically Signed: Niko Redman MD ([place]) at 16:26 EDT , Service support , Chest X-Ray 03/27/19 15:50 IMPRESSION: No acute cardiopulmonary process. Electronically Signed: Niko Redman MD ([place]oks) at 16:27 EDT , Service support , 03/27/19 15:50 Brain/Head without Contrast [CT] Stat Chest PA and Lateral [RAD] Stat Laboratory Results 03/27/19 03/27/19 03/27/19 15:42 15:42 17:30 WBC 8.9 RBC 4.16 L Hgb 11.6 L Hct 36.2 L MCV 87.0 MCH 27.9 MCHC 32.0 RDW Std Deviation 43.1 RDW Coeff of Tony 13.6 Plt Count 319 MPV 11.3 Immature Gran % (Auto) 0.300 Neut % (Auto) 79.7 H Lymph % (Auto) 14.3 L [place] % (Auto) 5.2 Eos % (Auto) 0.2 Baso % (Auto) 0.3 Absolute Neuts (auto) 7.1 Absolute Lymphs (auto) 1.27 Nucleated RBC % 0 Sodium 132 L Potassium 4.7 Chloride 99 Carbon Dioxide 27.0 Anion Gap 6 BUN 8 Creatinine 0.72 Estim Creat Clear Calc 44.73 Est GFR (MDRD) Af Amer 104 Est GFR (MDRD) Non-Af 86 BUN/Creatinine Ratio 11.2 Glucose 113 H Calcium 9.0 Troponin I < 0.015 Urine Color Yellow Urine Clarity Sl. Cloudy Urine pH 8.0 Ur Specific [place] 1.010 Urine Protein Negative Urine Glucose (UA) Normal Urine Ketones Negative Urine Occult Blood Negative Urine Nitrite Negative Urine Bilirubin Negative Urine Urobilinogen Normal Ur Leukocyte Esterase Negative Urine RBC 0 SEEN Urine WBC 0 SEEN Ur Squamous Epith Cells 0-5 SEEN Urine Bacteria 0 SEEN Urine Mucus 0 SEEN - EKG Initial EKG Interpretation: Sinus Rhythm, No Acute Injury Pattern, - - left axis Prior: Unchanged - Medical Decision Making Work-up is unremarkable, she has a negative head CT and there is no sign of a urine infection or other acute bacterial infection. While being observed in the emergency department, the majority of time was used waiting for his urine specimen, the patient apparently had 3 episodes approximately 1 minute each of possible seizure activity, the patient was unresponsive with eyes open, and twitching her eyelids. There was no [place] seizure activity. The family is saying that this is new for her. This is similar to what she did earlier, at home. She is on Vimpat 50 mg twice daily, this was decreased weeks or months ago from 100 mg twice daily. Neurology is not available for consultation on the weekend. I offered/encouraged transfer to [facility], since we would not have the appropriate services here to admit her here. Family adamantly wants to take her home and declined this. They state that her neurologist Dr. Bravo has supported her Vimpat level at 100 mg twice daily in the past, and they prefer to do that for now. I think that is okay since we do not see anything urgent or emergent on the testing, although I did voice my concern about her seizures being different and the benefit of transfer being that they could perform more testing such as EEG, and have neurology see her urgently. They understand that a prefer to take her home right now, so we gave her a dose of Vimpat 100 mg prior to discharge. They will follow-up as soon as possible, encouraged to return for worsening problems. ED Disposition - Plan for ED Patient: Disposition: Home or Assisted Living Diagnosis: Seizures, Disorientation, unspecified, History of seizure disorder Instructions: SEIZURE, Recurrent [Adult] Referrals: Robert Patel MD [Primary Care Provider] - Brad Bravo MD [STAFF PHYSICIAN] - As soon as possible Additional Instructions: Double your Vimpat to 100 mg twice daily. If continued seizure activity or other concerns, please return to the emergency department.
[2019-03-27 16:10] LABS: Absolute Lymphocyte Count 1.27 X10^3/uL (0.83-4.51); Absolute Neutrophil Count 7.1 X10^3/uL (2.0-7.7); Basophil# 0.03 X10^3/uL; Basophil% 0.3 % (0-1); Eosinophil# 0.02 X10^3/uL; Eosinophils% 0.2 % (0-5); Hematocrit 36.2 % (37-47); Hemoglobin 11.6 g/dL (12.0-15.0); Lymphocyte # 1.27 X10^3/ul (4.0); Lymphocyte % 14.3 % (19-41); Mean Corpuscular Hgb 27.9 pg (27.0-32.0); Mean Platelet Vol. 11.3 fl (6.2-12.0); Monocyte# 0.46 X10^3/uL; Monocyte% 5.2 % (0-10); NRBC Flagged by Analyzer 0 % (0-5); Neutrophil # 7.09 X10^3/uL (2.7-7.7); Neutrophil % 79.7 % (47-70); Platelet Count 319 K/mm3 (150-450); RBC Distribution Width CV 13.6 % (11.6-14.6); RBC Distribution Width SD 43.1 fl (35.1-43.9); Red Blood Count 4.16 M/mm3 (4.2-5.4); White Blood Count 8.9 K/mm3 (4.4-11.0)
[2019-03-27 16:23] LABS: Anion Gap 6 (5-15); BUN 8 mg/dL (7-18); BUN/Creat Ratio 11.2 RATIO (10-20); Chloride 99 mmol/L (98-107); Creatinine, Serum 0.72 mg/dL (0.55-1.02); EST Glomerular Filtration Rate 86 mL/min (>60); Est Glom Filt Rate - Afr Amer 104 mL/min (>60); Estimated Creatinine Clearance 44.73 ml/min; Glucose 113 mg/dL (74-106); Potassium 4.7 mmol/L (3.5-5.1); Sodium Level 132 mmol/L (136-145)
[2019-03-27 17:39] LABS: Bacteria 0 SEEN /hpf (None Seen); Mucous, Urine 0 SEEN /hpf (<or=2+); Red Blood Cells-Urine 0 SEEN /hpf (0-5); White Blood Cells 0 SEEN /hpf (0-5)
[2019-03-27 17:41] LABS: Color, Urine Yellow (Yellow); Glucose, Dipstick Normal (Normal); Ketone-Dipstick Negative (Negative); Leukocyte Esterase-Dipstick Negative /ul (Negative); Nitrite-Dipstick Negative (Negative); Occult Blood-Urine Negative /ul (Negative); Protein-Dipstick Negative (Negative); Urine Bilirubin Dipstick Negative (Negative); Urine Clarity Sl. Cloudy (Clear); Urine Urobilinogen Normal (Normal)
[2019-03-27 17:53] LABS: Squamous Epithelial Cells - UA 0-5 SEEN /hpf (5-10)
[2019-03-27] MEDS: Lacosamide Solution 100 MG/10 ML UDC PO (20:39)
== END 2019-03-27 21:07 | disposition home or self-care (01) ==
PROVIDERS: Emergency Provider Emergency Medicine; Family Provider Family Medicine; PCP Family Medicine
DX: G40.909 Epilepsy, unspecified, not intractable, without status epilepticus (principal); R47.01 Aphasia; D68.0 Von Willebrand disease; I48.0 Paroxysmal atrial fibrillation; G47.419 Narcolepsy without cataplexy; M06.9 Rheumatoid arthritis, unspecified; K21.9 Gastro-esophageal reflux disease without esophagitis; F32.9 Major depressive disorder, single episode, unspecified; F41.9 Anxiety disorder, unspecified; Z79.899 Other long term (current) drug therapy; Z88.5 Allergy status to narcotic agent
CPT/HCPCS: 70450; 71046; 80048; 81001; 84484; 85025; 93005; 96360; 99285; J7040; A4216

== ENCOUNTER → 2019-10-08 15:59 | Outpatient (CLI) | payer MEDICARE, OTHER, SELFPAY ==
[2019-06-16 10:39] VITALS: BMI 20.7
== END ==
PROVIDERS: PCP Family Medicine; Referring Provider Psychiatry & Neurology Neurology; Visit Provider Psychiatry & Neurology Neurology
DX: R56.9 Unspecified convulsions (principal)
CPT/HCPCS: 36415

== ENCOUNTER → 2020-01-11 09:17 | Outpatient (CLI) | payer MEDICARE, OTHER, SELFPAY ==
[2019-06-16 10:39] VITALS: BMI 20.7
--- NOTE | 2020-01-11 09:36 | BI_ITS ---
MAMMOGRAPHY - BILATERAL SCREENING REASON FOR EXAM: Female, 69 years old. Routine annual screening examination. PERTINENT HISTORY: Aunts with breast cancer. TECHNIQUE: Digital bilateral breast jeanette (3D mammographic acquisition) in the CC and MLO projections. 2-D mediolateral oblique (MLO) and craniocaudad (CC) views of both breasts were obtained. CAD: Full Field Digital Mammography with Computer Added Detection was performed. COMPARISON: Comparison is made with prior examination dated January 01, 2019 and October 21, 2017. FINDINGS: Breast Composition: There are scattered areas of fibroglandular density. There are no dominant masses or suspicious calcifications. Stable asymmetry were more breast tissue is seen in the upper lateral aspect of the left breast as compared to the right side. No other significant abnormalities are identified. There has been no significant change since the prior study. BI/SCREEN MAMM (CAD) W/JEANETTE BILAT IMPRESSION: Stable bilateral screening mammogram. Yearly follow-up mammogram recommended. (A) ASSESSMENT CATEGORY: BIRADS Category 2: Benign. A letter regarding these results will be sent to the patient by the facility within 30 days. Approximately 10% of breast cancers are not detected by mammography. A normal mammogram should not delay biopsy of a clinically suspicious abnormality. [id number] Electronically Signed: Chandana Maldonado, at 10:45 EDT , Service support ,
--- NOTE | 2020-01-11 09:41 | BD_ITS ---
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 COMPARISON: Comparison is made with prior study October 21, 2017. FINDINGS: Lumbar Spine (L1-L4): g/cm2 (0.879) / T-score (-2.5) / Z-score (-0.9) Findings are suggestive of osteoporosis with a high fracture risk. Increased kyphosis. Left Femur Total: g/cm2 (0.635) / T-score (-3.0) / Z-score (-1.6) Left Femoral Neck: g/cm2 (0.622) / T-score (-3.0) / Z-score (-1.4) Right Femur Total: g/cm2 (0.617) / T-score (-3.1) / Z-score (-1.7) Right Femoral Neck: g/cm2 (0.682) / T-score (-2.6) / Z-score (-1.0) The T-Scores on the most recent prior examination were: Lumbar Spine (L1-L4): There has been worsening of bone density since the previous examination. Left Femur Total: which represents a worsening of 16.3%. Right Femur Total: which represents a worsening of 15.9%. BD/Dexa Bone Density Study IMPRESSION: The patient is considered osteoporotic as outlined below according to World Jeferson Organization (WHO) criteria with a high fracture risk. There has been worsening of bone density since the previous examination. Reference Information: The T-score is the number of standard deviations above or below the standard which is normal for young adults at their peak bone mineral density. The World Health Organization (WHO) interprets the T-scores as follows: Above -1 Normal bone density Between -1 and -2.5 Osteopenia Equal to / or below -2.5 Osteoporosis As a practical clinical guideline, osteopenia may be graded as follows: Mild -1 through -1.5 Moderate -1.6 through -2.0 Severe -2.1 through -2.4 The Z-score is the number of standard deviations above or below age-matched controls. A Z-score of less than -1.5 would be considered abnormal. References: 1. NIH Osteoporosis and Related Bone Diseases http://www.osteo.org 2. International Society for Clinical Densitometry http://www.iscd.org 3. National Osteoporosis Foundation http://www.nof.org Electronically Signed: Chandana Maldonado, at 13:19 EDT , Service support ,
== END ==
PROVIDERS: PCP Family Medicine; Referring Provider Family Medicine; Visit Provider Family Medicine
DX: Z00.00 Encounter for general adult medical examination without abnormal findings (principal); Z12.31 Encounter for screening mammogram for malignant neoplasm of breast; Z78.0 Asymptomatic menopausal state
CPT/HCPCS: 77063; 77067; 77080

== ENCOUNTER → 2020-03-14 13:05 | Outpatient (CLI) | payer MEDICARE, OTHER, SELFPAY ==
[2020-02-15 10:56] VITALS: BMI 20.7
--- NOTE | 2020-03-14 13:06 | MRI_ITS ---
STUDY: MRI BRAIN WITH AND WITHOUT CONTRAST REASON FOR EXAM: Female, 69 years old. dementia, seizures TECHNIQUE: Standardized multiplanar fat and water weighted pulse sequences were obtained. IV Dotarem 10ml was administered for the contrast portion of the examination. COMPARISON: 06/29/2018 FINDINGS: There is mild cerebral atrophy with widening of the extra-axial spaces and ventricular dilatation. There are a limited number of small white matter hyperintensities, distributed throughout the deep white matter tracts of the cerebral hemispheres, consistent with mild chronic white matter ischemic changes. There is no evidence for recent intracranial ischemia or other cause of cytotoxic edema on diffusion weighted imaging (DWI). Normal T2* images of the brain without demonstrated susceptibility artifact. There is no demonstrated hemosiderin stain. Normal bilateral basal ganglia. Normal thalami. There is no extra-axial fluid accumulation. Normal flow voids within the major intracranial circulation suggesting patency by spin echo criteria. Normal venous enhancement. There is no enhancing intra-axial or extra-axial abnormality. Normal sella turcica, pituitary gland, infundibular stalk, optic chiasm and hypothalamus. Normal tectal plate and pineal gland. Normal midbrain, shar and medulla. Normal cerebellum. Normal basal cisterns. Normal bilateral temporal bones. Normal bilateral internal auditory canals. No demonstrated orbital abnormality, within the constraints of a routine brain study. Normal visualized paranasal sinuses. Normal calvarium and skull base. Normal visualized soft tissue structures. Normal visualized upper cervical spine. MRI/Brain W/WO Contrast IMPRESSION: Involutional changes of the brain, as described above. Electronically Signed: Reji Felix MD at 14:44 EDT Tel , Service support ,
[2020-03-14 13:51] LABS: CREATININE FINGERSTICK < 0.6 mg/dL (0.55-1.02); EGFR FINGERSTICK > 60.0000 mL/min (>60)
== END ==
PROVIDERS: PCP Family Medicine; Referring Provider Psychiatry & Neurology Neurology; Visit Provider Psychiatry & Neurology Neurology
DX: G31.84 Mild cognitive impairment of uncertain or unknown etiology (principal)
CPT/HCPCS: 70553; A9575

== ENCOUNTER → 2020-03-22 13:09 | Outpatient (CLI) | payer MEDICARE, OTHER, SELFPAY ==
[2020-02-15 10:56] VITALS: BMI 20.7
[2020-03-22] MEDS: DENOSUMAB 60 MG/ML SQ (13:24)
[2020-03-22 13:30] VITALS: BP 120/80; PULSE 82; RESP 16; TEMP 36.3; O2SAT 99; BMI 20.7
== END ==
PROVIDERS: PCP Family Medicine; Referring Provider Internal Medicine Endocrinology, Diabetes & Metabolism; Visit Provider Internal Medicine Endocrinology, Diabetes & Metabolism
DX: M81.0 Age-related osteoporosis without current pathological fracture (principal)
CPT/HCPCS: 96372; J0897

== ENCOUNTER → 2020-04-21 06:44 | Outpatient (CLI) | payer MEDICARE, OTHER, SELFPAY ==
[2020-03-22 13:30] VITALS: BMI 20.7
--- NOTE | 2020-04-21 08:31 | TELEMED_ITS ---
[facility] has confirmed receipt of a request for visit. This document confirms receipt of the order initiating the consult. To find the results of the consultation, please view the patient's reports for the scanned Telemed Consult.
== END ==
PROVIDERS: PCP Family Medicine; Referring Provider Psychiatry & Neurology Neurology; Visit Provider Psychiatry & Neurology Neurology
DX: G40.909 Epilepsy, unspecified, not intractable, without status epilepticus (principal)
CPT/HCPCS: 95819

== ENCOUNTER → 2020-05-22 16:31 | Outpatient (CLI) | payer MEDICARE, OTHER, SELFPAY ==
[2020-04-25 16:06] VITALS: BMI 20.7
[2020-05-22 18:24] LABS: Hematocrit 40.2 % (37-47); Hemoglobin 11.9 g/dL (12.0-15.0); Mean Corp Hgb Conc 29.6 g/dL (32-36); Mean Corpuscular Hgb 27.5 pg (27.0-32.0); Mean Corpuscular Volume 92.8 fL (81-99); Platelet Count 336 K/mm3 (150-450); RBC Distribution Width CV 13.7 % (11.6-14.6); RBC Distribution Width SD 46.4 fl (35.1-43.9); Red Blood Count 4.33 M/mm3 (4.2-5.4)
[2020-05-22 18:52] LABS: Vitamin B12 > 2000 pg/mL (211-911)
[2020-05-22 18:59] LABS: ALB/GLOB Ratio 1.2 RATIO (0.9-2.4); AST(SGOT) 21 U/L (15-37); Alanine Aminotransfer ALT/SGPT 19 U/L (13-56); Alkaline Phosphatase 95 U/L (45-117); Anion Gap 6 (5-15); BUN 14 mg/dL (7-18); BUN/Creat Ratio 15.7 RATIO (10-20); Calcium,Total 9.8 mg/dL (8.5-10.1); Chloride 100 mmol/L (98-107); Creatinine, Serum 0.89 mg/dL (0.55-1.02); EST Glomerular Filtration Rate 67 mL/min (>60); Est Glom Filt Rate - Afr Amer 81 mL/min (>60); Globulin 3.2 g/dL (2.2-4.2); Glucose 109 mg/dL (74-106); Magnesium 2.3 mg/dL (1.6-2.6); Protein, Total 7.2 g/dL (6.4-8.2); Sodium Level 136 mmol/L (136-145); Thyroid Stim Hormone (TSH) 1.24 uIU/mL (0.358-3.74)
== END ==
PROVIDERS: PCP Family Medicine; Visit Provider Family Medicine
DX: R41.3 Other amnesia (principal); E53.8 Deficiency of other specified B group vitamins; E55.9 Vitamin D deficiency, unspecified
CPT/HCPCS: 36415; 80053; 82306; 82607; 83735; 84443; 85027

== ENCOUNTER → 2020-09-22 10:32 | Outpatient (CLI) | payer MEDICARE, OTHER, SELFPAY ==
[2020-02-15 10:56] VITALS: BMI 20.7
[2020-04-25 16:06] VITALS: BMI 20.7
[2020-09-22 10:42] VITALS: BP 145/72; PULSE 79; RESP 16; TEMP 36.4; O2SAT 100; BMI 22.1
[2020-09-22] MEDS: DENOSUMAB 60 MG/ML SQ (10:56)
== END ==
PROVIDERS: PCP Family Medicine; Referring Provider Internal Medicine Endocrinology, Diabetes & Metabolism; Visit Provider Internal Medicine Endocrinology, Diabetes & Metabolism
DX: M81.0 Age-related osteoporosis without current pathological fracture (principal)
CPT/HCPCS: 96372; J0897

== ENCOUNTER → 2020-09-25 | Outpatient (CLI) | payer MEDICARE, OTHER, SELFPAY ==
[2020-09-22 10:42] VITALS: BMI 22.1
== END | disposition home or self-care (01) ==
LOC: LABSPEC 13:31
PROVIDERS: PCP Family Medicine; Referring Provider Family Medicine; Visit Provider Family Medicine
DX: Z20.822 Contact with and (suspected) exposure to COVID-19 (principal)
CPT/HCPCS: 87635; U0005; U0003

== ENCOUNTER → 2021-02-26 11:00 | Outpatient (CLI) | payer MEDICARE, OTHER, SELFPAY ==
[2021-02-01 17:40] VITALS: BMI 22.1
[2021-02-26 12:21] LABS: Hematocrit 37.3 % (37-47); Hemoglobin 11.7 g/dL (12.0-15.0); Mean Corp Hgb Conc 31.4 g/dL (32-36); Mean Corpuscular Hgb 25.9 pg (27.0-32.0); Mean Corpuscular Volume 82.5 fL (81-99); Mean Platelet Vol. 11.4 fl (6.2-12.0); Platelet Count 353 K/mm3 (150-450); RBC Distribution Width SD 45.4 fl (35.1-43.9); Red Blood Count 4.52 M/mm3 (4.2-5.4)
[2021-02-26 13:01] LABS: Vitamin B12 > 2000 pg/mL (211-911); Vitamin D,25 Hydroxy 51.3 ng/mL
[2021-02-26 13:21] LABS: ALB/GLOB Ratio 1.1 RATIO (0.9-2.4); AST(SGOT) 21 U/L (15-37); Alanine Aminotransfer ALT/SGPT 20 U/L (13-56); Alkaline Phosphatase 68 U/L (45-117); Anion Gap 6 (5-15); BUN 7 mg/dL (7-18); BUN/Creat Ratio 10.7 RATIO (10-20); Calcium,Total 9.1 mg/dL (8.5-10.1); Chloride 101 mmol/L (98-107); Creatinine, Serum 0.66 mg/dL (0.55-1.02); EST Glomerular Filtration Rate 95 mL/min (>60); Est Glom Filt Rate - Afr Amer 115 mL/min (>60); Globulin 3.5 g/dL (2.2-4.2); Glucose 70 mg/dL (74-106); Potassium 4.2 mmol/L (3.5-5.1); Protein, Total 7.5 g/dL (6.4-8.2); Sodium Level 134 mmol/L (136-145); Thyroid Stim Hormone (TSH) 1.37 uIU/mL (0.358-3.74)
== END ==
PROVIDERS: PCP Family Medicine; Visit Provider Family Medicine
DX: G37.9 Demyelinating disease of central nervous system, unspecified (principal); F32.9 Major depressive disorder, single episode, unspecified; E55.9 Vitamin D deficiency, unspecified; E53.8 Deficiency of other specified B group vitamins
CPT/HCPCS: 36415; 80053; 82306; 82607; 84443; 85027

== ENCOUNTER → 2021-03-30 | Outpatient (CLI) | payer MEDICARE, OTHER, SELFPAY ==
[2021-03-30 12:59] VITALS: BP 125/76; PULSE 71; RESP 16; TEMP 35.9; BMI 21.4
[2021-03-30] MEDS: DENOSUMAB 60 MG/ML SC (13:18)
== END | disposition home or self-care (01) ==
LOC: MEDOUTP 12:48
PROVIDERS: PCP Family Medicine; Referring Provider Internal Medicine Endocrinology, Diabetes & Metabolism; Visit Provider Internal Medicine Endocrinology, Diabetes & Metabolism
DX: M81.0 Age-related osteoporosis without current pathological fracture (principal)
CPT/HCPCS: 96372; J0897

== ENCOUNTER 2021-09-20 16:55 | Outpatient (CLI) | payer MEDICARE, OTHER, SELFPAY ==
[2021-09-20 17:41] LABS: Absolute Lymphocyte Count 1.83 X10^3/uL (0.83-4.51); Absolute Neutrophil Count 9.9 X10^3/uL (2.0-7.7); Basophil# 0.03 X10^3/uL; Basophil% 0.2 % (0-1); Eosinophil# 0.01 X10^3/uL; Eosinophils% 0.1 % (0-5); Hematocrit 33.6 % (37-47); Hemoglobin 10.9 g/dL (12.0-15.0); Lymphocyte # 1.83 X10^3/ul (0.83-4.51); Lymphocyte % 14.5 % (19-41); Mean Corp Hgb Conc 32.4 g/dL (32-36); Mean Corpuscular Hgb 24.8 pg (27.0-32.0); Mean Corpuscular Volume 76.4 fL (81-99); Mean Platelet Vol. 11.5 fl (6.2-12.0); Monocyte# 0.76 X10^3/uL; NRBC Flagged by Analyzer 0 % (0-5); Neutrophil % 78.6 % (47-70); Platelet Count 363 K/mm3 (150-450); RBC Distribution Width CV 15.1 % (11.6-14.6); RBC Distribution Width SD 41.6 fl (35.1-43.9); White Blood Count 12.6 K/mm3 (4.4-11.0)
[2021-09-20 18:12] LABS: Erythrocyte Sedimentation Rate 11 mm/hr (0-30)
[2021-09-20 18:19] LABS: Vitamin B12 > 2000 pg/mL (211-911); Vitamin D,25 Hydroxy 53.4 ng/mL
[2021-09-20 18:45] LABS: ALB/GLOB Ratio 1.3 RATIO (0.9-2.4); AST(SGOT) 20 U/L (15-37); Alanine Aminotransfer ALT/SGPT 16 U/L (13-56); Albumin, Serum 4.1 g/dL (3.2-5.0); Alkaline Phosphatase 54 U/L (45-117); Anion Gap 9 (5-15); BUN 10 mg/dL (7-18); BUN/Creat Ratio 11.8 RATIO (10-20); CRP 2.99 mg/L (0.0-3.0); Calcium,Total 9.3 mg/dL (8.5-10.1); Chloride 96 mmol/L (98-107); Creatinine, Serum 0.84 mg/dL (0.55-1.02); EST Glomerular Filtration Rate 71 mL/min (>60); Est Glom Filt Rate - Afr Amer 86 mL/min (>60); Ferritin 10 ng/mL (8-252); Globulin 3.1 g/dL (2.2-4.2); Glucose 108 mg/dL (74-106); Iron 34 ug/dL (50-170); Potassium 4.7 mmol/L (3.5-5.1); Protein, Total 7.2 g/dL (6.4-8.2); Sodium Level 129 mmol/L (136-145); Thyroid Stim Hormone (TSH) 1.32 uIU/mL (0.358-3.74)
== END 2021-09-20 23:59 | disposition home or self-care (01) ==
LOC: MFPLAB 17:01
PROVIDERS: PCP Family Medicine; Referring Provider Family Medicine; Visit Provider Family Medicine
DX: R53.83 Other fatigue (principal); D64.9 Anemia, unspecified; E53.8 Deficiency of other specified B group vitamins; E55.9 Vitamin D deficiency, unspecified
CPT/HCPCS: 36415; 80053; 82306; 82607; 82728; 82746; 83540; 84443; 85025; 85652; 86140

== ENCOUNTER 2021-09-24 15:01 | Outpatient (CLI) | payer MEDICARE, OTHER, SELFPAY ==
[2021-09-24 18:05] LABS: Anion Gap 5 (5-15); BUN 8 mg/dL (7-18); BUN/Creat Ratio 9.8 RATIO (10-20); Calcium,Total 9.2 mg/dL (8.5-10.1); Chloride 101 mmol/L (98-107); Creatinine, Serum 0.81 mg/dL (0.55-1.02); EST Glomerular Filtration Rate 74 mL/min (>60); Est Glom Filt Rate - Afr Amer 89 mL/min (>60); Glucose 98 mg/dL (74-106); Magnesium 2.4 mg/dL (1.6-2.6); Potassium 5.3 mmol/L (3.5-5.1); Sodium Level 135 mmol/L (136-145)
[2021-09-24 19:04] LABS: Osmolality, Serum 289 mOsm/KG (280-301)
== END 2021-09-24 23:59 | disposition home or self-care (01) ==
LOC: MFPLAB 15:02
PROVIDERS: PCP Family Medicine; Visit Provider Family Medicine
DX: E87.1 Hypo-osmolality and hyponatremia (principal); I48.91 Unspecified atrial fibrillation
CPT/HCPCS: 36415; 80048; 83735; 83930

== ENCOUNTER 2021-09-28 14:03 | Outpatient (CLI) | payer MEDICARE, OTHER, SELFPAY ==
[2021-09-28 14:15] VITALS: BP 131/81; PULSE 87; RESP 16; TEMP 36.4
[2021-09-28] MEDS: DENOSUMAB 60 MG/ML SC (14:17)
== END 2021-09-28 23:59 | disposition home or self-care (01) ==
LOC: MEDOUTP 14:04
PROVIDERS: PCP Family Medicine; Referring Provider Internal Medicine Endocrinology, Diabetes & Metabolism; Visit Provider Internal Medicine Endocrinology, Diabetes & Metabolism
DX: M81.0 Age-related osteoporosis without current pathological fracture (principal)
CPT/HCPCS: 96372; J0897

== ENCOUNTER 2021-10-30 11:59 | Observation (INO) | payer MEDICARE, OTHER, SELFPAY ==
[2021-10-30] VITALS (10 sets, daily range): BP systolic 130–160; BP diastolic 69–92; PULSE 72–144; RESP 15–23; TEMP 36.2–36.5; O2SAT 96–100; BMI 23.3; BMI 23.0
--- NOTE | 2021-10-30 12:27 | EKG12_ITS ---
Test Reason : CP Blood Pressure : / mmHG Vent. Rate : 076 BPM Atrial Rate : 163 BPM P-R Int : 000 ms QRS Dur : 092 ms QT Int : 382 ms P-R-T Axes : 000 -52 009 degrees QTc Int : 429 ms Atrial fibrillation Left axis deviation Abnormal ECG Confirmed by HERMAN PICHARDO, JUAN J ([id number]), website/blog editor MILLY HUGHES ([id number]) on 10/31/2021 1:39:33 PM Referred By: TATI Confirmed By:JUAN J SUTTON MD
--- NOTE | 2021-10-30 12:36 | ED.VIS.CHEST ---
HPI History of Present Illness Chief Complaint: Chest Pain Informant: patient Onset/Context/Timing Onset: Today and Days Timing: Continuous Quality: Positive for Sharp and Stabbing; Negative for Tightness Location: Left Chest Current Severity: Mild Maximum Severity: Mild Worsened By: Nothing Relieved By: Nothing Associated Symptoms: Positive for Dyspnea; Negative for Nausea, Vomiting, Diaphoresis, Cough, Fever, Lightheadedness, Acid Reflux and Palpitations Narrative Narrative: 71-year-old female history of anxiety, depression, hepatitis C, von Willebrand's factor VIII, prior DVT, seizure history and history of A. fib diagnosed about a month ago. States her last 4 days she had waxing and waning left-sided chest pain. No fever or chills. No cough. Mild shortness of breath. No hemoptysis. No leg pain or swelling. Patient states she walks a lot at home around her property. Its several 100 m a lap around their acres. She states recently she has been getting more short of breath with exertion and at times chest pain even at other times has to stop. This is progressively worsened over the last several months. Prior Similar Symptoms: No Recent Illness/Hospitalization: No CVD Risk Factors: Negative for Hypertension and Diabetes PE Risk Factors: Positive for Prior DVT or PE; Negative for Recent Travel/Surgery, Recent Immobilization, Cancer and OCP + Smoking + >/=35 TAD Risk Factors: Negative for Marfan's Syndrome [facility] Medical History Anxiety and depression Arthritis Bleeding disorder Chronic bronchitis Gallstones Heart murmur Hepatitis C History of blood clots History of blood transfusion Hypertension IBS (irritable bowel syndrome) Liver disease Narcolepsy Neuropathy Osteoarthritis Osteopenia Osteoporosis PAF (paroxysmal atrial fibrillation) Rheumatoid arthritis Seizure Vitamin deficiency Von Willebrand disease Home Medications omeprazole 40 mg PO BID 05/18/16 [History Last Taken 03/27/19] potassium chloride 20 meq PO BID 06/26/18 [History Last Taken 03/27/19] multivitamin,as-[id number]-[id number] 1 tab PO DAILY 05/31/19 [History Last Taken Unknown] acetaminophen 500 mg tablet 500 mg PO BID tab 02/03/20 [History Last Taken Unknown] fluticasone propionate 50 mcg/actuation nasal spray,suspension 2 spray INTRANASAL DAILY 07/20/20 [History Last Taken Unknown] denosumab 60 mg/mL subcutaneous syringe 60 mg SUBCUT [id number] #1 ml 01/29/21 [Rx Last Taken Unknown] lamotrigine 25 mg tablet 50 mg PO BID #120 tab 04/05/21 [Rx Last Taken Unknown] cholecalciferol (vitamin D3) [Vitamin D3] 50 mcg PO DAILY 10/30/21 [History Last Taken Unknown] metoprolol tartrate 75 mg PO BID 10/30/21 [History Last Taken Unknown] Allergy/AdvReac Type Severity Reaction Status Date / Time codeine Allergy Hives Verified 10/30/21 12:01 morphine Allergy Hives Verified 10/30/21 12:01 Opioids - Morphine Analogues Allergy Hives Verified 10/30/21 12:01 bupropion AdvReac Nausea Verified 10/30/21 12:01 cephalexin AdvReac Upset Verified 10/30/21 12:01 Stomach duloxetine [From Cymbalta] AdvReac Other Verified 10/30/21 12:01 levetiracetam [From Keppra] AdvReac Other Verified 10/30/21 12:01 amicar AdvReac Other Uncoded 10/30/21 12:01 sassafrass AdvReac Nausea/Vom/ Uncoded 10/30/21 12:01 Diarrhea Family History Mother Endometrial cancer Breast cancer Ovarian cancer Respiratory disease Uncle Cardiac disease Sister Liver disease Blood clots Father Depression Surgical History History of breast biopsy History of cholecystectomy History of colonoscopy (~2010) History of dilation and curettage History of esophagogastroduodenoscopy (EGD) (~2005) History of repair of ACL History of total hysterectomy Social History Smoking Status: Former smoker Tobacco: How many years used: 10 how long ago did patient quit smokin second hand exposure: No alcohol intake: never substance use type: does not use ROS ROS ED ROS Narrative Left-sided chest pain. Mild shortness of breath. Review of Systems ROS Unobtainable: Denies due to encephalopathy Constitutional Constitutional ED: Denies fever(s) Eyes Eyes: Denies none ENT ENT ED: Denies ear pain Cardiovascular Cardiovascular: Reports as per HPI and chest pain; Denies palpitations or racing heartbeat Respiratory/Chest Respiratory/Chest: Reports dyspnea; Denies cough or sputum Gastrointestinal Gastrointestinal: Reports diarrhea; Denies abdominal pain, nausea or vomiting Genitourinary Genitourinary ED: Denies dysuria Musculoskeletal Musculoskeletal: Denies myalgias Integumentary Denies rash Neurologic Neurologic: Denies headache(s) Psychiatric Psychiatric: Denies depression Endocrine Endocrinology: Denies polyuria Hematologic/Lymphatic Hematologic/Lymphatic: Denies easy bruising Allergic/Immunologic Allergic/Immunologic ED: Denies urticaria EXAM Physical Exam Narrative Exam Narrative: 71-year-old female no acute distress. Vital signs stable afebrile. Pulse ox 99% on room air no signs of hypoxia. Patient clinically looks well. H EENT exam unremarkable. Neck nontender no JVD. Lungs clear to auscultation bilateral. Heart irregularly irregular rate about 80. No murmur. Chest wall nontender. Abdomen soft nontender. Moving all 4 extremities. Calves are nontender without edema or cords. Neurologically she is awake alert with no focal motor deficits. Const Vital Signs: 10/30/21 12:01 10/30/21 12:21 10/30/21 13:00 Temperature 97.2 F L Temperature Source Temporal Pulse Rate 72 87 73 Respiratory Rate 16 15 18 Respiratory Effort Normal Blood Pressure 134/76 H 141/86 H 130/73 H Blood Pressure Mean 95 104 92 Pulse Ox 99 98 96 Oxygen Delivery Method Room Air Room Air Room Air Positive well nourished and well developed; Negative for obese, cachectic, contractures or unkempt General Appearance ED: well developed and NAD; Negative for unkempt, cachectic, contractures or pallor Nutritional Appearance: Negative for cachectic or obese HEENT Reports moist mucous membranes normocephalic and atraumatic Eyes PERRL and EOMs intact bilaterally General Eye ED: Negative for pale conjunctiva or scleral icterus Neck no lymphadenopathy, supple and no JVD General: Negative for tenderness Chest Wall inspection of chest normal and palpation of chest normal Chest: Negative for tenderness Resp normal respiratory effort and clear to auscultation bilaterally Effort and Inspection: respiratory distress Auscultation: Negative for rales, rhonchi or wheezes Cardio regular rate, S1 normal heart sound, S2 normal heart sound and no murmurs; Negative for regular rhythm Rate: other Other Details: A. fib rate about 80. GI normal to inspection, nondistended, normoactive bowel sounds, soft to palpation, non-tender, non-distended and no masses Auscultation: Negative for hyperactive bowel sounds Back/Spine no CVA tenderness General Back: Negative for CVA tenderness Extremity normal to inspection General Extremety ED: Negative for edema or tenderness General Extremity: Negative for edema Neuro oriented x3 and CN's II-XII intact bilaterally Sensorium / Orientation: awake, alert, oriented to person, oriented to place and oriented to time Motor Exam: strength 5/5 throughout Psych mental status grossly normal Appearance: Negative for unkempt Mood & Affect: Negative for depressed or tearful Skin no rashes or lesions noted and no wounds General Skin Exam: Negative for jaundice or pallor Heart Score History: Slightly/Non-Suspicious ECG: Normal Age: >/= 65 years Risk Factors: No Risk Factors Troponin: </= Normal Limit Score: 2 MDM MDM MDM Narrative Medical decision making narrative: 71-year-old female equal nonreproducible left-sided chest discomfort. She does have a history of A. fib. She will undergo cardiac work-up. She has a history reportedly of von Willebrand's. She also have a D-dimer obtained. Patient states she walks a lot at home they have ground at home that she walks. She said her last several months she has been getting exertional dyspnea and exertional left sided chest pain in her left shoulder. It has been progressively getting more frequent and more intense. She is never had a stress test or heart cath. Repeat exam she is doing well at 2:10 PM. I discussed with her her symptoms her age and her risk factors there is some family history of cardiac disease. I discussed with the hospitalist admission for a stress test. Lab Data Attestation: I reviewed the patient's lab results. Lab results narrative: CBC shows a white count 11.7. H&H 11.6 and 36.5. Platelets 344. D-dimer is negative at 0.4. Electrolytes unremarkable gap of 3 normal BUN and creatinine. Glucose 120. Troponin IV. Labs: Laboratory Results - last 24 hr 10/30/21 10/30/21 10/30/21 12:21 12:21 12:21 WBC 11.7 H RBC 4.75 Hgb 11.6 L Hct 36.5 L MCV 76.8 L MCH 24.4 L MCHC 31.8 L RDW Std Deviation 47.2 H RDW Coeff of Tony 17.1 H Plt Count 344 MPV 10.7 Immature Gran % (Auto) 0.700 Neut % (Auto) 68.3 Lymph % (Auto) 20.6 Fleming % (Auto) 8.3 Eos % (Auto) 1.5 Baso % (Auto) 0.6 Absolute Neuts (auto) 8.0 H Absolute Lymphs (auto) 2.41 Nucleated RBC % 0 D-Dimer Quant (PE/DVT) 0.40 Sodium 136 Potassium 4.3 Chloride 105 Carbon Dioxide 28.0 Anion Gap 3 L BUN 12 Creatinine 0.92 Estim Creat Clear Calc 49.13 Est GFR (MDRD) Af Amer 78 Est GFR (MDRD) Non-Af 65 BUN/Creatinine Ratio 13.1 Glucose 120 H Calcium 9.6 Troponin I High Sens 4 Radiography Chest X-Ray - ED: 1 View, Read by ED Physician, Read by Radiologist, Heart, Lungs, Mediastinum, Bony Structures, No Acute Disease and Chronic Changes Diagnostic Testing: Clinical Impression(s) from Imaging Studies Chest X-Ray 10/30/21 12:45 IMPRESSION: Hyperinflation. The lungs are clear. Electronically Signed: Chandana Maldonado MD at 13:06 EDT , Chest x-ray, portable, single view interpreted by myself and the radiologist shows no acute abnormality. Rhythm Strip Rhythm Strip: A-fib Rate: 76 Ectopy: None EKG Initial EKG: Attestation: I personally reviewed and interpreted this EKG as follows: Interpretation: Atrial Fibrillation Comments: A. fib rate of 76 no acute signs of AR nor ischemia. Discharge Plan Triage Chief Complaint: Chest Pain ED Provider: Adeel Newton Dx/Rx/DC Orders Clinical Impression: Chest pain of uncertain etiology, Von Willebrand disease, Exertional dyspnea, History of atrial fibrillation Prescriptions: No Action Complete Multivitamin Tablet 1 tab PO DAILY RF: 0 acetaminophen [Tylenol Extra Strength] 500 mg tablet 500 mg PO BID RF: 0 denosumab 60 mg/mL syringe 60 mg subcut [id number] Qty: 1 RF: 1 fluticasone propionate 50 mcg/actuation spray,suspension 2 spray INTRANASAL DAILY RF: 0 lamotrigine 25 mg tablet 50 mg PO BID Qty: 120 RF: 2 omeprazole 40 MG capsule 40 mg PO BID RF: 0 potassium chloride 20 MEQ tablet,ER particles/crystals 20 meq PO BID RF: 0 metoprolol tartrate 50 mg tablet 75 mg PO BID RF: 0 cholecalciferol (vitamin D3) [Vitamin D3] 50 mcg (2,000 unit) Capsule 50 mcg PO DAILY RF: 0 Primary Care Provider: Robert Patel Referrals: Robert Patel MD [Primary Care Provider] - Disposition Disposition: Acute Care Hospital [facility]
--- NOTE | 2021-10-30 12:45 | RAD_ITS ---
STUDY: X-RAY CHEST REASON FOR EXAM: Female, 71 years old. Chest pain TECHNIQUE: Single AP portable view of the chest. COMPARISON: Comparison is made with prior study dated 03/27/2019. FINDINGS: EKG electrodes are seen. Hyperinflation. The lungs are clear. There is no demonstrated pleural abnormality. Normal size heart. Normal mediastinum and alis. Normal visualized pulmonary arteries. There is atherosclerotic calcification of the aortic arch with tortuosity. There are diffuse degenerative changes of the visualized thoracic spine. Normal visualized ribs, clavicles, and shoulders. There is no demonstrated abnormality of the visualized soft tissue structures of the upper abdomen. RAD/Chest 1 View (Portable) IMPRESSION: Hyperinflation. The lungs are clear. Electronically Signed: Chandana Maldonado MD at 13:06 EDT ,
[2021-10-30 12:49] LABS: Absolute Lymphocyte Count 2.41 X10^3/uL (0.83-4.51); Basophil# 0.07 X10^3/uL; Basophil% 0.6 % (0-1); Eosinophil# 0.17 X10^3/uL; Eosinophils% 1.5 % (0-5); Hematocrit 36.5 % (37-47); Hemoglobin 11.6 g/dL (12.0-15.0); Lymphocyte # 2.41 X10^3/ul (0.83-4.51); Lymphocyte % 20.6 % (19-41); Mean Corp Hgb Conc 31.8 g/dL (32-36); Mean Corpuscular Hgb 24.4 pg (27.0-32.0); Mean Corpuscular Volume 76.8 fL (81-99); Mean Platelet Vol. 10.7 fl (6.2-12.0); Monocyte# 0.97 X10^3/uL; Monocyte% 8.3 % (0-10); NRBC Flagged by Analyzer 0 % (0-5); Neutrophil # 8.01 X10^3/uL (2.7-7.7); Neutrophil % 68.3 % (47-70); Platelet Count 344 K/mm3 (150-450); RBC Distribution Width CV 17.1 % (11.6-14.6); RBC Distribution Width SD 47.2 fl (35.1-43.9); Red Blood Count 4.75 M/mm3 (4.2-5.4); White Blood Count 11.7 K/mm3 (4.4-11.0)
[2021-10-30 13:13] LABS: Anion Gap 3 (5-15); BUN 12 mg/dL (7-18); BUN/Creat Ratio 13.1 RATIO (10-20); Calcium,Total 9.6 mg/dL (8.5-10.1); Chloride 105 mmol/L (98-107); Creatinine, Serum 0.92 mg/dL (0.55-1.02); EST Glomerular Filtration Rate 65 mL/min (>60); Est Glom Filt Rate - Afr Amer 78 mL/min (>60); Estimated Creatinine Clearance 49.13 ml/min; Glucose 120 mg/dL (74-106); Potassium 4.3 mmol/L (3.5-5.1); Sodium Level 136 mmol/L (136-145); Troponin-I HS 4 pg/mL (3.0-54.0)
[2021-10-30 16:07] LABS: Troponin-I HS 6 pg/mL (3.0-54.0)
--- NOTE | 2021-10-30 16:08 | HP.PCM.HOS_ITS ---
HPI - General General Date of Admission: 10/30/21 HPI Narrative AICHA ROLLINS, is a 71 F who presents with shortness of breath with exertion for the last couple months and then she started developing some chest pain which worsened starting on Friday. She says that the chest pain worsened both in intensity and duration but she could not isolate a specific activity that would elicit the pain. Starting on Friday the pain had started radiating up to her jaw and back and down her left arm and then across the top of her abdomen. She was recently diagnosed with possible A. fib and was referred to cardiology, however she has not followed up with them yet. She does have a history of von Willebrand's disease therefore any type of direct intervention will be complicated here. [facility] Medical History Anxiety and depression Arthritis Bleeding disorder Chronic bronchitis Gallstones Heart murmur Hepatitis C History of blood clots History of blood transfusion Hypertension IBS (irritable bowel syndrome) Liver disease Narcolepsy Neuropathy Osteoarthritis Osteopenia Osteoporosis PAF (paroxysmal atrial fibrillation) Rheumatoid arthritis Seizure Vitamin deficiency Von Willebrand disease Home Medications omeprazole 40 mg PO BID 05/18/16 [History Last Taken 10/30/21] potassium chloride 20 meq PO BID 06/26/18 [History Last Taken 10/30/21] multivitamin,[id number] 1 tab PO DAILY 05/31/19 [History Last Taken 10/30/21] acetaminophen 500 mg tablet 500 mg PO QHS tab 02/03/20 [History Last Taken 10/29/21] fluticasone propionate 50 mcg/actuation nasal spray,suspension 2 spray INTRANASAL DAILY 07/20/20 [History Last Taken Unknown] lamotrigine 25 mg tablet 50 mg PO BID #120 tab 04/05/21 [Rx Last Taken 10/30/21] cholecalciferol (vitamin D3) [Vitamin D3] 50 mcg PO DAILY 10/30/21 [History Last Taken 10/30/21] denosumab 60 mg SUBCUT [id number] 10/30/21 [History Last Taken 1 Month Ago ~10/01/21] metoprolol tartrate 75 mg PO BID 10/30/21 [History Last Taken 10/30/21] Allergy/AdvReac Type Severity Reaction Status Date / Time codeine Allergy Hives Verified 10/30/21 12:01 morphine Allergy Hives Verified 10/30/21 12:01 Opioids - Morphine Analogues Allergy Hives Verified 10/30/21 12:01 bupropion AdvReac Nausea Verified 10/30/21 12:01 cephalexin AdvReac Upset Verified 10/30/21 12:01 Stomach duloxetine [From Cymbalta] AdvReac Other Verified 10/30/21 12:01 levetiracetam [From Keppra] AdvReac Other Verified 10/30/21 12:01 amicar AdvReac Other Uncoded 10/30/21 12:01 sassafrass AdvReac Nausea/Vom/ Uncoded 10/30/21 12:01 Diarrhea Family History Mother Endometrial cancer Breast cancer Ovarian cancer Respiratory disease Uncle Cardiac disease Sister Liver disease Blood clots Father Depression Surgical History History of breast biopsy History of cholecystectomy History of colonoscopy (~2010) History of dilation and curettage History of esophagogastroduodenoscopy (EGD) (~2005) History of repair of ACL History of total hysterectomy Social History Smoking Status: Former smoker Tobacco: How many years used: 10 how long ago did patient quit smokin second hand exposure: No alcohol intake: never substance use type: does not use ROS Constitutional Constitutional: Denies chills, fatigue, fever(s) or malaise Eyes Eyes: Denies blurry vision ENT HEENT: Denies headache(s) or nasal discharge Cardiovascular Cardiovascular: Reports chest pain and dyspnea on exertion; Denies syncope Respiratory/Chest Respiratory/Chest: Denies cough, shortness of breath at rest or shortness of breath with exertion Gastrointestinal Gastrointestinal: Denies constipation, diarrhea, nausea or vomiting Genitourinary Genitourinary: Denies dysuria Neurologic Neurologic: Denies focal weakness, numbness or tremor(s) Psychiatric Psychiatric: Denies anxiety or depression Vital Signs Vital Signs Vital Signs: 10/30/21 12:01 10/30/21 12:21 10/30/21 13:00 Temperature 97.2 F L Temperature Source Temporal Pulse Rate 72 87 73 Respiratory Rate 16 15 18 Respiratory Effort Normal Blood Pressure 134/76 H 141/86 H 130/73 H Blood Pressure Mean 95 104 92 Blood Pressure Source Blood Pressure Position Blood Pressure Location Pulse Ox 99 98 96 Oxygen Delivery Method Room Air Room Air Room Air 10/30/21 14:00 10/30/21 15:10 10/30/21 16:00 Temperature 97.2 F L 97.7 F L Temperature Source Temporal Temporal Pulse Rate 75 72 80 Respiratory Rate 20 H 23 H 22 H Respiratory Effort Blood Pressure 132/69 H 160/92 H 155/84 H Blood Pressure Mean 90 114 107 Blood Pressure Source Monitor Blood Pressure Position Semi-Fowlers Blood Pressure Location Left Arm Pulse Ox 98 100 100 Oxygen Delivery Method Room Air Room Air Room Air Weight Weight: 134 lb 1.6 oz Body Mass Index (BMI) 23.0 Physical Exam Const alert, oriented x3 and no apparent distress General Appearance: cooperative HEENT normocephalic and moist oral mucous membranes Teeth and Gingiva: poor dentition Eyes PERRL, EOMs intact bilaterally and conjunctivae normal Neck supple and no JVD Resp normal respiratory effort, no retractions, no use of accessory muscles and clear to auscultation bilaterally Auscultation: Negative for crackles, rales, rhonchi or wheezes Cardio S1 normal heart sound, S2 normal heart sound and no murmurs Rate: tachycardic Rhythm: abnormal rhythm GI soft to palpation, non-tender and non-distended; Negative for hepatosplenomegaly Extremity no clubbing, cyanosis or edema Skin no rashes or lesions noted Neuro no focal motor deficits and no sensory deficits noted Psych affect normal Appearance: appropriate Results Lab / Micro Data Result Diagrams: 10/30/21 12:21 10/30/21 12:21 Labs: Laboratory Results - last 24 hr 10/30/21 12:21: WBC 11.7 H, RBC 4.75, Hgb 11.6 L, Hct 36.5 L, MCV 76.8 L, MCH 24.4 L, MCHC 31.8 L, RDW Std Deviation 47.2 H, RDW Coeff of Tony 17.1 H, Plt Count 344, MPV 10.7, Immature Gran % (Auto) 0.700, Neut % (Auto) 68.3, Lymph % (Auto) 20.6, [place] % (Auto) 8.3, Eos % (Auto) 1.5, Baso % (Auto) 0.6, Absolute Neuts (auto) 8.0 H, Absolute Lymphs (auto) 2.41, Nucleated RBC % 0 10/30/21 12:21: Sodium 136, Potassium 4.3, Chloride 105, Carbon Dioxide 28.0, Anion Gap 3 L, BUN 12, Creatinine 0.92, Estim Creat Clear Calc 49.13, Est GFR (MDRD) Af Amer 78, Est GFR (MDRD) Non-Af 65, BUN/Creatinine Ratio 13.1, Glucose 120 H, Calcium 9.6, Troponin I High Sens 4 10/30/21 12:21: D-Dimer Quant (PE/DVT) 0.40 10/30/21 14:30: Troponin I High Sens Cancelled 10/30/21 15:20: Troponin I High Sens 6 Rhythm Strip Rhythm Strip: A-fib Rate: 76 Ectopy: None Radiology Impression Chest X-Ray 10/30/21 12:45 IMPRESSION: Hyperinflation. The lungs are clear. Electronically Signed: Chandana Maldonado MD at 13:06 EDT , Assessment & Plan Assessment/Plan (1) Exertional dyspnea: (2) Chest pain of uncertain etiology: PLAN: 1. Chest pain with exertional dyspnea/A. fib/HTN ?Continue with her home metoprolol ?We will serial troponins ?Stress test in the morning troponins are negative ?EKG was unremarkable ?She does have a history of von Willebrand's disease, and has had multiple procedures were bleeding became a significant issue therefore if she does require a heart cath she will likely need to be transferred to a tertiary care center ?Given her bleeding issue, she does not qualify for anticoagulation for her A. fib however she will follow up with cardiology as an outpatient for this issue 2. History of possible pseudoseizure/anxiety/depression ?Continuing with Lamictal ?She does follow-up as an outpatient with neurology 3. GERD ?Stable ?Continue with PPI DVT: Ambulation Charges/Coding Visit Charges OBSV E&M: 22799 Initial observation care L2
[2021-10-30 19:24] LABS: Troponin-I HS < 3 pg/mL (3.0-54.0)
[2021-10-30] MEDS: lamoTRIgine 25 MG Tablet 50 MG PO (20:51)
[2021-10-30] MEDS: Metoprolol Tartrate 25 MG Tablet 75 MG PO (20:51)
[2021-10-30] MEDS: Pantoprazole Sodium 40 MG Tablet PO (20:51)
[2021-10-30] MEDS: Acetaminophen 500 MG Tablet PO (20:58)
[2021-10-31] VITALS (8 sets, daily range): BP systolic 117–148; BP diastolic 62–84; PULSE 65–88; RESP 16–18; TEMP 36.2–36.6; O2SAT 95–100
--- NOTE | 2021-10-31 05:55 | EKG12_ITS ---
Test Reason : AM EKG Blood Pressure : / mmHG Vent. Rate : 075 BPM Atrial Rate : 129 BPM P-R Int : 000 ms QRS Dur : 092 ms QT Int : 428 ms P-R-T Axes : 000 -56 -19 degrees QTc Int : 477 ms Atrial fibrillation Left anterior fascicular block Septal infarct , age undetermined Abnormal ECG When compared with ECG of 30-OCT-2021 12:11, MANUAL COMPARISON REQUIRED, DATA IS UNCONFIRMED Confirmed by HERMAN PICHARDO, JUAN J ([id number]), editor department MILLY HUGHES ([id number]) on 11/01/2021 7:45:09 AM Referred By: CASANDRA Confirmed By:JUAN J SUTTON MD
[2021-10-31 06:22] LABS: Absolute Lymphocyte Count 2.92 X10^3/uL (0.83-4.51); Absolute Neutrophil Count 5.9 X10^3/uL (2.0-7.7); Basophil# 0.09 X10^3/uL; Basophil% 0.9 % (0-1); Eosinophil# 0.31 X10^3/uL; Hematocrit 35.6 % (37-47); Hemoglobin 11.5 g/dL (12.0-15.0); Lymphocyte # 2.92 X10^3/ul (0.83-4.51); Lymphocyte % 28.2 % (19-41); Mean Corp Hgb Conc 32.3 g/dL (32-36); Mean Corpuscular Volume 74.2 fL (81-99); Mean Platelet Vol. 10.9 fl (6.2-12.0); Monocyte# 1.07 X10^3/uL; Monocyte% 10.3 % (0-10); NRBC Flagged by Analyzer 0 % (0-5); Neutrophil # 5.94 X10^3/uL (2.7-7.7); Neutrophil % 57.2 % (47-70); Platelet Count 315 K/mm3 (150-450); RBC Distribution Width CV 17.1 % (11.6-14.6); RBC Distribution Width SD 45.1 fl (35.1-43.9); White Blood Count 10.4 K/mm3 (4.4-11.0)
[2021-10-31] MEDS: 0.9% Saline Lock 10 ML Syringe IV (06:27)
[2021-10-31 06:50] LABS: Anion Gap 4 (5-15); BUN 11 mg/dL (7-18); BUN/Creat Ratio 13.2 RATIO (10-20); Calcium,Total 8.7 mg/dL (8.5-10.1); Chloride 102 mmol/L (98-107); Cholesterol 145 mg/dL (200); Creatinine, Serum 0.83 mg/dL (0.55-1.02); EST Glomerular Filtration Rate 72 mL/min (>60); Est Glom Filt Rate - Afr Amer 87 mL/min (>60); Estimated Creatinine Clearance 54.46 ml/min; Glucose 85 mg/dL (74-106); High Density Lipoprotein 60 mg/dL; Potassium 4.7 mmol/L (3.5-5.1); Sodium Level 135 mmol/L (136-145); Triglycerides 46 mg/dL; Very Low Density Lipoprotein 9 mg/dL (5-40)
--- NOTE | 2021-10-31 11:41 | STRESSREP_ITS ---
Stress Test Report Date: 10/31/2021 Procedure: Pharmacologic stress nuclear imaging study Indications: Chest pain Consent: Per the patient Procedure: The patient underwent pharmacologic (Regadenoson) evaluation with a peak heart rate of 122 beats per minute (81%predicted maximal heart rate) and a peak blood pressure of 158/82 mmHg. The baseline ECG demonstrated atrial fibrillation. EKG during lexiscan infusion revealed no significant ischemic changes. EKG post infusion revealed no significant ischemic changes [There were no cardiac dysrhythmias pretest, during pharmacologic infusion, or recovery]. Patient had mild chest pain at baseline which did not change with Lexiscan infusion. The examination was discontinued secondary to completion of protocol. Impression: 1. Lexiscan stress test test is negative for Lexiscan infusion induced EKG changes of ischemia. 2. Lexiscan stress test test is negative for Lexiscan infusion induced chest pain. 3. Results of the nuclear portion of the test is as below Myocardial perfusion imaging study: Technique: The patient was injected with [] millicuries of technetium 99m Cardiolite and subsequently rest SPECT Cardiolite nuclear imaging was obtained in the horizontal long, vertical long, and short axis views. The patient underwent pharmacologic [Regadenoson 0.4mg] evaluation. Please see above for details. The patient was injected with [] millicuries of technetium 99m Cardiolite and subsequently stress SPECT Cardiolite nuclear imaging was obtained in the horizontal long, vertical long, and short axis views. A gated Cardiolite study at peak stress was obtained. Interpretation: Rest and stress SPECT Cardiolite nuclear imaging status post realignment, normalization, and attenuation correction demonstrate overall normal myocardial radioisotope uptake. Gated images reveal no significant regional wall motion abnormalities. The reported LVEF is 52%. Impression: 1. There is no evidence of significant ischemia or infarction. 2. Estimated ejection fraction is 52%. This note was generated with [employer] software. It may contain incorrect words, spelling, and punctuation that were not noted in checking the note before signing.
--- NOTE | 2021-10-31 12:30 | PCM.DC ---
Discharge Instructions Diet Discharge Diet: Low fat / Low cholesterol and 2000 mg Sodium Diet Activity Discharge Activity: Return to Normal Activity Follow Up Care Test Results: Test results from this visit will be discussed in further detail at your follow-up appointment, if applicable. Discharge Plan Admission Admit Date/Time: 10/30/21 15:09 Primary Reason for Your Visit: Chest pain Attending Provider: Shelly Bailey Primary Care Provider: Robert Patel Instructions Additional Instructions / Restrictions: Continue to take her medications as prescribed. Follow-up with your primary care doctor within 1 to 2 weeks Discharge Orders/Prescriptions Prescriptions: Continued Complete Multivitamin Tablet 1 tab PO DAILY RF: 0 acetaminophen [Tylenol Extra Strength] 500 mg tablet 500 mg PO QHS RF: 0 fluticasone propionate 50 mcg/actuation spray,suspension 2 spray INTRANASAL DAILY RF: 0 lamotrigine 25 mg tablet 50 mg PO BID Qty: 120 RF: 2 omeprazole 40 MG capsule 40 mg PO BID RF: 0 potassium chloride 20 MEQ tablet,ER particles/crystals 20 meq PO BID RF: 0 metoprolol tartrate 50 mg tablet 75 mg PO BID RF: 0 cholecalciferol (vitamin D3) [Vitamin D3] 50 mcg (2,000 unit) Capsule 50 mcg PO DAILY RF: 0 denosumab 60 mg/mL syringe 60 mg subcut [id number] RF: 0 Referrals / Follow Up: Robert Patel MD [Primary Care Provider] - Within 1 Week Disposition Disposition (needs filled in before D/C Order can be placed): Home, Self Care
--- NOTE | 2021-10-31 12:31 | DS.PCM_ITS ---
Providers Date of Admission: 10/30/21 Date of Discharge: 10/31/21 Primary Care Physician: Dr. Robert Patel MD Reason For Visit: CHEST PAIN Diagnosis Discharge Diagnosis (1) Exertional dyspnea: Status: Acute Code(s): R06.00 - Dyspnea, unspecified (2) Chest pain of uncertain etiology: Status: Acute Code(s): R07.9 - Chest pain, unspecified Medications at Discharge Home Medications omeprazole 40 mg PO BID 05/18/16 potassium chloride 20 meq PO BID 06/26/18 multivitamin,[id number] 1 tab PO DAILY 05/31/19 acetaminophen 500 mg tablet 500 mg PO QHS tab 02/03/20 fluticasone propionate 50 mcg/actuation nasal spray,suspension 2 spray INTRANASAL DAILY 07/20/20 lamotrigine 25 mg tablet 50 mg PO BID #120 tab 04/05/21 cholecalciferol (vitamin D3) [Vitamin D3] 50 mcg PO DAILY 10/30/21 denosumab 60 mg SUBCUT [id number] 10/30/21 metoprolol tartrate 75 mg PO BID 10/30/21 Hospital Course Operations None Procedures None Summary of Care Provided Minutes Spent on Discharge: 25 Hospital Course: 71-year-old with past medical history of von Willebrand's disease, hypertension who comes in with complaints of shortness of breath ongoi ng for couple of months associated chest pain. Chest pain started few days prior to admission. Pain radiated to her jaw and back and down her left arm. She has recently been diagnosed with A. fib but has not followed up with cardiology late. Patient's admitting EKG showed atrial fibrillation, rate controlled, no acute ST changes. Troponins were unremarkable. Patient underwent stress test that was unremarkable. Her vitals remained stable. She was discharged to follow-up with her primary care doctor and cardiology Physical Exam Narrative Physical exam: General: Alert, Oriented x3, Cooperative, No apparent distress, Well developed HEENT: Atraumatic Oral: Moist Mucosa Neck: Supple Lungs: Clear to auscultation Cardiovascular: HS I+II, regular, no murmurs Abdomen: Bowel Sounds Present, Soft, Non Tender Extremities: No edema Skin: No rashes, No breakdown Neurological: Grossly intact Psych/Mental Status: Appropriate Weight / BMI Weight Weight: 60.827 kg Body Mass Index (BMI) 23.0 ABG / Lab / Microbiology Data Result Diagrams: 10/31/21 05:42 10/31/21 05:42 Laboratory: Laboratory Results - last 24 hr 10/30/21 12:21: WBC 11.7 H, RBC 4.75, Hgb 11.6 L, Hct 36.5 L, MCV 76.8 L, MCH 24.4 L, MCHC 31.8 L, RDW Std Deviation 47.2 H, RDW Coeff of Tony 17.1 H, Plt Count 344, MPV 10.7, Immature Gran % (Auto) 0.700, Neut % (Auto) 68.3, Lymph % (Auto) 20.6, Columbia % (Auto) 8.3, Eos % (Auto) 1.5, Baso % (Auto) 0.6, Absolute Ne uts (auto) 8.0 H, Absolute Lymphs (auto) 2.41, Nucleated RBC % 0 10/30/21 12:21: Sodium 136, Potassium 4.3, Chloride 105, Carbon Dioxide 28.0, Anion Gap 3 L, BUN 12, Creatinine 0.92, Estim Creat Clear Calc 49.13, Est GFR (MDRD) Af Amer 78, Est GFR (MDRD) Non-Af 65, BUN/Creatinine Ratio 13.1, Glucose 120 H, Calcium 9.6, Troponin I High Sens 4 10/30/21 12:21: D-Dimer Quant (PE/DVT) 0.40 10/30/21 14:30: Troponin I High Sens Cancelled 10/30/21 15:20: Troponin I High Sens 6 10/30/21 18:21: Troponin I High Sens < 3 L 10/31/21 05:42: WBC 10.4, RBC 4.80, Hgb 11.5 L, Hct 35.6 L, MCV 74.2 L, MCH 24.0 L, MCHC 32.3, RDW Std Deviation 45.1 H, RDW Coeff of Tony 17.1 H, Plt Count 315, MPV 10.9, Immature Gran % (Auto) 0.400, Neut % (Auto) 57.2, Lymph % (Auto) 28.2, Columbia % (Auto) 10.3 H, Eos % (Auto) 3.0, Baso % (Auto) 0.9, Absolute Neuts (auto) 5.9, Absolute Lymphs (auto) 2.92, Nucleated RBC % 0 10/31/21 05:42: Sodium 135 L, Potassium 4.7, Chloride 102, Carbon Dioxide 29.0, Anion Gap 4 L, BUN 11, Creatinine 0.83, Estim Creat Clear Calc 54.46, Est GFR (M DRD) Af Amer 87, Est GFR (MDRD) Non-Af 72, BUN/Creatinine Ratio 13.2, Glucose 85, Calcium 8.7, Triglycerides 46, Cholesterol 145, LDL Cholesterol 76, VLDL Cholesterol 9, HDL Cholesterol 60 Radiography Diagnostic Testing: Radiology Impression Chest X-Ray 10/30/21 12:45 IMPRESSION: Hyperinflation. The lungs are clear. Electronically Signed: Chandana Maldonado MD at 13:06 EDT , D/C Instructions Discharge Diet: Low fat / Low cholesterol and 2000 mg Sodium Diet Meaningful Use Info Meaningful Use Diagnoses (Choose all that apply): None applicable Discharge Plan Admission Admit Date/Time: 10/30/21 15:09 Primary Reason for Your Visit: Chest pain Attending Provider: Shelly Bailey Primary Care Provider: Robert Patel Instructions Additional Instructions / Restrictions: Continue to take her medications as prescribed. Follow-up with your primary care doctor within 1 to 2 weeks Discharge Orders/Prescriptions Prescriptions: Continued Complete Multivitamin Tablet 1 tab PO DAILY RF: 0 acetaminophen [Tylenol Extra Strength] 500 mg tablet 500 mg PO QHS RF: 0 fluticasone propionate 50 mcg/actuation spray,suspension 2 spray INTRANASAL DAILY RF: 0 lamotrigine 25 mg tablet 50 mg PO BID Qty: 120 RF: 2 omeprazole 40 MG capsule 40 mg PO BID RF: 0 potassium chloride 20 MEQ tablet,ER particles/crystals 20 meq PO BID RF: 0 metoprolol tartrate 50 mg tablet 75 mg PO BID RF: 0 cholecalciferol (vitamin D3) [Vitamin D3] 50 mcg (2,000 unit) Capsule 50 mcg PO DAILY RF: 0 denosumab 60 mg/mL syringe 60 mg subcut [id number] RF: 0 Referrals / Follow Up: Ranney,Robert, MD [Primary Care Provider] - Within 1 Week Disposition Disposition (needs filled in before D/C Order can be placed): Home, Self Care Charges/Coding Visit Charges OBSV E&M: 98773 Observation care discharge
[2021-10-31] MEDS: lamoTRIgine 25 MG Tablet 50 MG PO (12:39)
[2021-10-31] MEDS: Metoprolol Tartrate 25 MG Tablet 75 MG PO (12:39)
[2021-10-31] MEDS: Pantoprazole Sodium 40 MG Tablet PO (12:45)
== END 2021-10-31 12:23 | disposition home or self-care (01) ==
LOC: ED 15:10 → PCU 15:33
PROVIDERS: Admitting Provider Family Medicine; Emergency Provider Emergency Medicine; PCP Family Medicine; Visit Provider Internal Medicine
DX: R07.89 Other chest pain (principal); M06.9 Rheumatoid arthritis, unspecified; I48.0 Paroxysmal atrial fibrillation; D68.0 Von Willebrand disease; I10 Essential (primary) hypertension; M79.602 Pain in left arm; M54.9 Dorsalgia, unspecified; R68.84 Jaw pain; R06.00 Dyspnea, unspecified; K21.9 Gastro-esophageal reflux disease without esophagitis; Z87.891 Personal history of nicotine dependence; Z79.899 Other long term (current) drug therapy; Z95.1 Presence of aortocoronary bypass graft; M19.90 Unspecified osteoarthritis, unspecified site; F32.A Depression, unspecified; F41.9 Anxiety disorder, unspecified
CPT/HCPCS: 36415; 71045; 78452; 80048; 80061; 84484; 85025; 85379; 93005; 93017; 99218; 99285; A9500; A4216; G0378; J2785

== ENCOUNTER 2021-11-13 12:42 | Outpatient (CLI) | payer MEDICARE, OTHER, SELFPAY ==
--- NOTE | 2021-11-13 14:02 | PFTCOMP_ITS ---
COMPLETE PULMONARY FUNCTION TEST INTERPRETATION Brief HPI: Patient is a 71 year old female, currently under the care of Dr. Patel, who presents to [facility] for complete pulmonary function tests secondary to diagnosis of dyspnea. Respiratory therapist reports good effort and reproducible results. Interpretation: Forced expiration spirometry shows a moderate large airways obstructive ventilatory defect with an FEV1 of 65% predicted. There is no significant bronchodilator response by strict ATS criteria. Spirograms are of good quality and plateau slowly, indicating slowly emptying areas of the lungs. The respiratory flow volume loop shows decreased expiratory flow rates at all lung volumes consistent with airway obstruction. Lung volumes by body plethysmography show a normal total lung capacity at 4.77 L, 99% predicted. FRC and RV are elevated out of proportion. Lung volume measurements are consistent with air-trapping. Diffusion capacity by carbon monoxide is decreased at 64% predicted. The airway resistance is elevated. Compared to previous pulmonary function tests from 12/30/2013, there has been significant worsening in spirometry, DLCO and air trapping. Impression: Irreversible moderate large airways obstructive ventilatory defect with a symmetric reduction in diffusion capacity. There has been significant worsening compared to 2013.
== END 2021-11-13 23:59 | disposition home or self-care (01) ==
LOC: PSN 12:43
PROVIDERS: PCP Family Medicine; Referring Provider Family Medicine; Visit Provider Family Medicine
DX: R06.02 Shortness of breath (principal)
CPT/HCPCS: 94060; 94726; 94729

== ENCOUNTER → 2022-01-08 | Outpatient (CLI) | payer MEDICARE, OTHER, SELFPAY ==
[2022-01-08 11:40] VITALS: PULSE 100; PULSE 79; PULSE 83; PULSE 86; PULSE 87; PULSE 91; PULSE 98; PULSE 99; O2SAT 94; O2SAT 95; O2SAT 96; O2SAT 97; O2SAT 98; O2SAT 99
--- NOTE | 2022-01-08 15:10 | PCM.PSN.6M ---
PSN 6 Minute Walk Test 6 Minute Walk Test 6 Minute Walk Test: 6 Minute Walk Test PSN:6-Minute Walk Test Start: 01/08/22 11:40 Freq: Status: Active Protocol: [id number] Document 01/08/22 11:40 ON LICENSE OF [facility] (Rec: 01/08/22 11:47 ON LICENSE OF [facility] [id number]) 6 Minute Walk Test Date Performed 01/08/22 Time Performed 11:15 Height 5 ft 4 in Weight: 61.689 kg Weight in Pounds 136.[address]: Natan Giraldo Assistive device used: None Pre-test Oxygen Delivery Method Room Air Pulse Ox (%) 98 Pulse Rate (60-100 beats/min) 79 Dyspnea Usman Scale (0-10) 1 1st minute Oxygen Delivery Method Room Air Pulse Ox (%) 98 Pulse Rate (60-100 beats/min) 86 Dyspnea Usman Scale (0-10) 2 Number of Rests Taken 0 2nd minute Oxygen Delivery Method Room Air Pulse Ox (%) 98 Pulse Rate (60-100 beats/min) 87 Dyspnea Usman Scale (0-10) 2 Number of Rests Taken 0 3rd minute Oxygen Delivery Method Room Air Pulse Ox (%) 97 Pulse Rate (60-100 beats/min) 91 Dyspnea Usman Scale (0-10) 3 Number of Rests Taken 0 Reported Symptoms Increased Work of Breathing 4th minute Oxygen Delivery Method Room Air Pulse Ox (%) 96 Pulse Rate (60-100 beats/min) 98 Dyspnea Usman Scale (0-10) 3 Number of Rests Taken 0 Reported Symptoms Increased Work of Breathing 5th minute Oxygen Delivery Method Room Air Pulse Ox (%) 95 Pulse Rate (60-100 beats/min) 100 Dyspnea Usman Scale (0-10) 3 Number of Rests Taken 0 Reported Symptoms Increased Work of Breathing 6th minute Oxygen Delivery Method Room Air Pulse Ox (%) 94 Pulse Rate (60-100 beats/min) 99 Dyspnea Usman Scale (0-10) 3 Number of Rests Taken 0 Reported Symptoms Increased Work of Breathing Post-test Oxygen Delivery Method Room Air Pulse Ox (%) 99 Pulse Rate (60-100 beats/min) 83 Dyspnea Usman Scale (0-10) 1 Full Laps Walked 18 Partial Lap, Number of Tiles Walked 42 Total Distance Walked (ft) 1104 Interpretation Interpretation: The patient was able to travel 1104 feet over the course of 6 minutes on room air with no assistive devices or breaks. The patient experienced no significant desaturation or tachycardia during testing. These findings are consistent with a normal walking oximetry. Recommendations Recommendations: No supplemental oxygen is indicated at this time.
== END | disposition home or self-care (01) ==
LOC: PSN 11:14
PROVIDERS: PCP Family Medicine; Referring Provider Internal Medicine Critical Care Medicine; Visit Provider Internal Medicine Critical Care Medicine
DX: R06.02 Shortness of breath (principal)
CPT/HCPCS: 94618

== ENCOUNTER 2022-02-15 06:44 | Emergency (ER) | payer MEDICARE, OTHER, SELFPAY ==
[2022-02-15 06:44] VITALS: BP 141/74; PULSE 87; RESP 16; TEMP 36.5; O2SAT 99; BMI 24.1
--- NOTE | 2022-02-15 07:06 | CT_ITS ---
STUDY: CT BRAIN WITHOUT CONTRAST REASON FOR EXAM: Female, 71 years old. Trauma RADIATION DOSAGE (If Supplied By Facility): CTDIvol = ( 44.99 ) mGy, DLP = ( 745.49 ) mGycm TECHNIQUE: Transaxial CT imaging of the brain was performed without administration of intravenous contrast material. Individualized dose optimization techniques were used for this CT. COMPARISON: Comparison is made with prior study dated 03/27/2019. FINDINGS: Normal soft tissue structures. Normal calvarium. There is mild cerebral atrophy with widening of the extra-axial spaces and ventricular dilatation. There are areas of decreased attenuation within the white matter tracts of the supratentorial brain, consistent with microvascular disease changes. There are small punctate calcifications of the basal ganglia which are seen in the aging brain as a normal variant. Normal brainstem. Normal cerebellum. There is no intracranial hemorrhage. There are no findings of an acute ischemic infarction. Normal visualized paranasal sinuses. CT/Brain/Head without Contrast IMPRESSION: Chronic involutional changes of the brain. Electronically Signed: Chandana Maldonado MD at 8:03 EDT ,
--- NOTE | 2022-02-15 07:06 | CT_ITS ---
STUDY: CT FACIAL BONES WITHOUT CONTRAST REASON FOR EXAM: Female, 71 years old. Trauma RADIATION DOSAGE (If Supplied By Facility): CTDIvol = ( 29.38 ) mGy, DLP = ( 503.38 ) mGycm TECHNIQUE: The patient was scanned in a multi detector CT scanner. Sagittal and coronal images were reconstructed. Individualized dose optimization techniques were used for this CT. COMPARISON: None. FINDINGS: Normal soft tissue structures. Normal orbital head and orbital contents. Normal nasal bones and anterior nasal spine. Normal facial bones. There is no demonstrated fracture. Normal visualized paranasal sinuses. CT/Sinus/Facial Bone IMPRESSION: Normal unenhanced CT of the facial bones. Electronically Signed: Chandana Maldonado MD at 8:04 EDT ,
--- NOTE | 2022-02-15 07:08 | EDS_ITS ---
HPI History of Present Illness Chief Complaint: Fall Informant: patient Narrative Narrative: Patient was walking out of her house with a dog on a leash. The dog saw a deer pulled quickly and she got pulled into the door frame. She then fell onto the stoop. No loss of consciousness. At first she states she is really not hurting anywhere at all. Then asked what her concerns were and she told me that she hit her nose and its more swollen than normal. But she has not had any bleeding of it despite having von Willebrand's disease. She also has slightly sore knees but she is up walking and they do not bother her much. She states she has right great toe pain. The triage nurse note said left but she tells me it is the right. She also has slight right wrist pain. She states all these areas are very mild she is just concerned because of the von Willebrand's. Patient has had some increased bleeding with surgeries. But normally she does not have problems with falls contusions etc. She has not had any bleeding issues recently. She has not had any bleeding from this fall. This fall happened about an hour or so ago. [facility] Medical History Acute respiratory failure with hypoxia Anxiety and depression Arthritis Bleeding disorder Cardiac enzymes elevated Chronic bronchitis Essential hypertension Gallstones Heart murmur Hepatitis C History of blood clots History of blood transfusion IBS (irritable bowel syndrome) Influenza A Liver disease Mental status change Narcolepsy Neuropathy Osteoarthritis Osteopenia Osteoporosis Osteoporosis Paroxysmal atrial fibrillation Pneumonia Rheumatoid arthritis Seizure Sepsis Vitamin deficiency Von Willebrand disease Home Medications omeprazole 40 mg capsule,delayed release 40 mg PO BID gerd/acid reflux 05/18/16 [History Last Taken 10/30/21] potassium chloride 20 mEq tablet,extended release(part/cryst) 20 meq PO BID supplement 06/26/18 [History Last Taken 10/30/21] multivitamin,[id number] (Complete Multivitamin tablet) 1 tab PO DAILY 05/31/19 [History Last Taken 10/30/21] acetaminophen 500 mg tablet (Tylenol Extra Strength) 500 mg PO QHS PAIN 02/03/20 [History Last Taken 10/29/21] fluticasone propionate 50 mcg/actuation nasal spray,suspension 2 spray intranasal DAILY 07/20/20 [History Last Taken Unknown] cholecalciferol (vitamin D3) 50 mcg (2,000 unit) capsule (Vitamin D3) 50 mcg PO DAILY 10/30/21 [History Last Taken 10/30/21] denosumab 60 mg/mL subcutaneous syringe 60 mg subcut [id number] [id number] 10/30/21 [History Last Taken 1 Month Ago ~10/01/21] metoprolol tartrate 50 mg tablet 75 mg PO BID 10/30/21 [History Last Taken 10/30/21] lamotrigine 25 mg tablet 25 mg PO BID 12/14/21 [History Last Taken Unknown] Allergy/AdvReac Type Severity Reaction Status Date / Time codeine Allergy Hives Verified 02/15/22 06:49 morphine Allergy Hives Verified 02/15/22 06:49 Opioids - Morphine Analogues Allergy Hives Verified 02/15/22 06:49 bupropion AdvReac Nausea Verified 02/15/22 06:49 cephalexin AdvReac Upset Verified 02/15/22 06:49 Stomach duloxetine [From Cymbalta] AdvReac Other Verified 02/15/22 06:49 levetiracetam [From Keppra] AdvReac Other Verified 02/15/22 06:49 amicar AdvReac Other Uncoded 02/15/22 06:49 sassafrass AdvReac Nausea/Vom/ Uncoded 02/15/22 06:49 Diarrhea Family History Mother Endometrial cancer Breast cancer Ovarian cancer Respiratory disease Uncle Cardiac disease Sister Liver disease Hep C Father Depression Surgical History History of breast biopsy History of cholecystectomy History of colonoscopy (~2010) History of dilation and curettage History of esophagogastroduodenoscopy (EGD) (~2005) History of repair of ACL History of total hysterectomy Social History Smoking Status: Former smoker Tobacco: How many years used: 10 how long ago did patient quit smokin second hand exposure: No alcohol intake: never substance use type: does not use caffeine: Yes Type: coffee Number of servings: 2 ROS ROS ED Constitutional Constitutional ED: Denies chills or fever(s) Eyes Eyes: Denies blurry vision or change in vision ENT ENT ED: Reports other Details: Hit nose but no bleeding Cardiovascular Cardiovascular: Denies chest pain or palpitations Respiratory/Chest Respiratory/Chest: Denies cough or dyspnea Gastrointestinal Gastrointestinal: Denies melena, nausea or vomiting Genitourinary Genitourinary ED: Denies hematuria Musculoskeletal Musculoskeletal: Reports other Details: See history of present illness ; Denies back pain or neck pain Integumentary Denies rash Neurologic Neurologic: Denies headache(s), paresthesias or weakness Endocrine Endocrinology: Denies polydipsia or polyuria Hematologic/Lymphatic Hematologic/Lymphatic: Reports easy bleeding and easy bruising Allergic/Immunologic Allergic/Immunologic ED: Denies urticaria EXAM Physical Exam Const Vital Signs: 02/15/22 06:44 02/15/22 06:51 02/15/22 10:02 Temperature 97.7 F L Temperature Source Temporal Pulse Rate 87 Respiratory Rate 16 14 Respiratory Effort Normal Non-Labored Respiratory Depth Normal Respiratory Pattern Normal Blood Pressure 141/74 H Blood Pressure Mean 96 Pulse Ox 99 Oxygen Delivery Method Room Air Room Air Positive well nourished and well developed General Appearance ED: well developed HEENT HEENT Narrative: Patient does have signs of contusion around her nose. Slight swelling of the upper lip. No septal hematoma is seen. No active bleeding. No sign of dried blood in the nose. No lacerations. No bony step-off or crepitance is noted. trauma Eyes PERRL and EOMs intact bilaterally Neck full ROM General: Negative for tenderness Chest Wall inspection of chest normal Resp normal respiratory effort and clear to auscultation bilaterally Cardio regular rhythm and no murmurs Rate: regular rate GI normal to inspection, nondistended, normoactive bowel sounds and non-tender Back/Spine normal to inspection and no thoracic nor lumbar tenderness Extremity Extremity Narrative: Patient has very superficial abrasions to the front of the knees. But there is no swelling or effusion. No pain with palpation or range of motion. She states she hurts at the tip of the right great toe. There is no swelling contusion at this time. No obvious deformity. She has some soreness in the right wrist but moves it back and forth quickly and easily. No specific area of tenderness. I am not seeing any contusions or abnormal bruising on her at this time. Neuro oriented x3 Neuro Narrative: Patient is awake alert calm and appropriate. Psych mental status grossly normal Skin Trauma: abrasion MDM MDM MDM Narrative Medical decision making narrative: Patient CT of her head and face as well as x-rays of her wrist and foot on the right show no sign of acute fractures. No intracranial bleeding. I rechecked the patient. There is no development of any notable bruising or swelling. She has a little bit of swelling around the nose but it is unchanged from when I saw her the first time. There is still no nasal bleeding or septal hematoma. She is not developing headache or neurologic symptoms. I have made a call to Dr. Sandoval who is her credit interviewer in [facility]. We have been trying to contact patient's credit interviewer. In the meantime they were able to access their chart. The most recent lab studies that this patient has which are from January of this year show factor VIII at 48% activity. Factor XI was at 80%. This patient does not have history of significant bruising with impact. I think she is safe for discharge. Radiography Diagnostic Testing: Clinical Impression(s) from Imaging Studies Brain CT 02/15/22 07:06 IMPRESSION: Chronic involutional changes of the brain. Electronically Signed: Chandana Maldonado MD at 8:03 EDT , Facial/Sinus 02/15/22 07:06 IMPRESSION: Normal unenhanced CT of the facial bones. Electronically Signed: Chandana Maldonado MD at 8:04 EDT , Foot X-Ray 02/15/22 07:22 IMPRESSION: Plantar spur. Mild soft tissue edema. No visualized fracture. Electronically Signed: Piper Hernandez MD at 7:55 EDT , Wrist X-Ray 02/15/22 07:22 IMPRESSION: Osteoarthritis of the carpometacarpal joint. Degenerative change. Chondrocalcinosis of the wrist. No visualized acute fracture. Electronically Signed: Ppier Hernandez MD at 7:57 EDT , Discharge Plan Triage Chief Complaint: Fall ED Provider: Corey Melendez Dx/Rx/DC Orders Clinical Impression: Fall from other slipping, tripping, or stumbling, Contusion of face, Von Willebrand disease Instructions: Bruises (Contusions), ED Head Injury (Adult) Prescriptions: No Action Complete Multivitamin Tablet 1 tab PO DAILY acetaminophen [Tylenol Extra Strength] 500 mg tablet 500 mg PO QHS fluticasone propionate 50 mcg/actuation spray,suspension 2 spray INTRANASAL DAILY lamotrigine 25 mg tablet 25 mg PO BID omeprazole 40 MG capsule 40 mg PO BID Label Comments: gerd/acid reflux potassium chloride 20 MEQ tablet,ER particles/crystals 20 meq PO BID metoprolol tartrate 50 mg tablet 75 mg PO BID cholecalciferol (vitamin D3) [Vitamin D3] 50 mcg (2,000 unit) Capsule 50 mcg PO DAILY denosumab 60 mg/mL syringe 60 mg subcut [id number] Primary Care Provider: Robert Patel Referrals: Robert Patel MD [Primary Care Provider] - 3-5 Days if not improving Activity Restrictions/Additional Instructions: Follow-up with your credit interviewer, Dr. Sandoval. Disposition Disposition: Home, Self Care Discharge Date/Time: 02/15/22 10:03
--- NOTE | 2022-02-15 07:22 | RAD_ITS ---
STUDY: X-RAY - RIGHT FOOT CLINICAL: Female, 71 years old. Trauma TECHNIQUE: 3 view(s) of the foot. COMPARISON: None. FINDINGS: There is a plantar spur. The bones are osteopenic. Normal visualized subtalar, talonavicular, calcaneocuboid, tarsal and tarsometatarsal articulations. Normal metatarsi. Normal metatarsophalangeal joint of the great toe. Normal tibial and fibular sesamoid bones. Normal interphalangeal joint of the great toe. Normal phalanges of the great toe. Normal second through fifth metatarsophalangeal joints. Normal interphalangeal joints and phalanges of the lesser toes. There is mild soft tissue edema about the ankle. RAD/Foot min 3 Views IMPRESSION: Plantar spur. Mild soft tissue edema. No visualized fracture. Electronically Signed: Piper Hernandez MD at 7:55 EDT Reading Location ID and State: [facility] / [place] Tel , Service support ,
--- NOTE | 2022-02-15 07:22 | RAD_ITS ---
STUDY: X-RAY - RIGHT WRIST REASON FOR EXAM: Female, 71 years old. Trauma TECHNIQUE: 3 view(s) of the wrist were obtained. COMPARISON: None. FINDINGS: Normal visualized distal radius and ulna. There is mild degenerative arthrosis of the radiocarpal articulation. Normal distal radioulnar articulation. Normal carpal bones. There is degenerative arthrosis of the carpal articulations. There is degenerative arthrosis of the carpometacarpal articulation of the thumb. Normal second through fifth carpometacarpal articulations. Normal visualized metacarpal bones. There is calcification at the level of the radiocarpal joint suggesting chondrocalcinosis. RAD/Wrist min 3 Views IMPRESSION: Osteoarthritis of the carpometacarpal joint. Degenerative change. Chondrocalcinosis of the wrist. No visualized acute fracture. Electronically Signed: Piper Hernandez MD at 7:57 EDT Reading Location ID and State: [facility] / [place] Tel , Service support ,
[2022-02-15 10:02] VITALS: RESP 14
== END 2022-02-15 10:03 | disposition home or self-care (01) ==
PROVIDERS: Emergency Provider Emergency Medicine; PCP Family Medicine; Visit Provider Emergency Medicine
DX: D68.0 Von Willebrand disease (principal); I10 Essential (primary) hypertension; S00.83XA Contusion of other part of head, initial encounter; M25.531 Pain in right wrist; F41.9 Anxiety disorder, unspecified; F32.A Depression, unspecified; S80.211A Abrasion, right knee, initial encounter; S80.212A Abrasion, left knee, initial encounter; W01.198A Fall on same level from slipping, tripping and stumbling with subsequent striking against other object, initial encounter; Y93.K1 Activity, walking an animal; Z87.891 Personal history of nicotine dependence; Z79.899 Other long term (current) drug therapy
CPT/HCPCS: 70450; 70486; 73110; 73630; 99282

== ENCOUNTER → 2022-02-19 | Outpatient (CLI) | payer MEDICARE, OTHER, SELFPAY ==
--- NOTE | 2022-02-19 08:55 | ECHOD_ITS ---
Reason For Study: ATRIAL FIB-FLUTTER Procedure This was a 2D Doppler, Color Flow transthoracic echocardiogram. The exam was of adequate technical quality. Exam performed in department. Left Ventricle Normal LV size. Left ventricular systolic function is normal. The estimated ejection fraction is 55 %. Unable to assess diastolic dysfunction. No regional wall motion abnormalities noted. Right Ventricle Normal RV size. Normal systolic function. Atria The left atrium is moderately enlarged. The right atrium is mildly enlarged. No doppler evidence for ASD. Mitral Valve There is mild mitral annular calcification. Mild diffuse mitral valve thickening. Mild (1+) mitral valve insufficiency. Tricuspid Valve Normal tricuspid valve. Mild to moderate (1-2+) tricuspid valve insufficiency. Right ventricular systolic pressure estimated to be 25 mmHg. Aortic Valve Trisinus/trileaflet aortic valve. Mild diffuse aortic valve thickening. Pulmonic Valve The pulmonic valve is not well visualized. Trivial pulmonic valve insufficiency. Great Vessels Normal sized aortic root. Pericardium/Pleural No pericardial effusion. MMode/2D Measurements & Calculations LVIDd: 4.3 cm IVSd: 0.86 cm Ao root diam: 2.7 cm LVIDs: 3.2 cm LVPWd: 0.84 cm RVDd: 2.7 cm FS: 26.0 % LAV(MOD-bp): 79.4 ml LVAd ap4: 21.1 cm2 LVAd ap2: 22.7 cm2 LAV(MOD-bp) Indexed: 48.4 ml/m2 LVLd ap4: 6.8 cm LVLd ap2: 6.4 cm LAV(MOD-sp2): 76.6 ml EDV(MOD-sp4): 53.1 ml EDV(MOD-sp2): 69.8 ml LAV(MOD-sp4): 77.4 ml EDV(sp4-el): 56.1 ml EDV(sp2-el): 68.2 ml LVAs ap4: 14.2 cm2 LVAs ap2: 17.1 cm2 LVLs ap4: 5.8 cm LVLs ap2: 6.0 cm ESV(MOD-sp4): 29.8 ml ESV(MOD-sp2): 39.7 ml ESV(sp4-el): 29.6 ml ESV(sp2-el): 41.6 ml EF(MOD-sp4): 43.8 % EF(MOD-sp2): 43.2 % EF(sp4-el): 47.3 % SV(MOD-sp4): 23.2 ml SV(MOD-sp2): 30.1 ml SV(sp4-el): 26.5 ml LA dimension(2D): 3.6 cm LA A4 area: 23.8 cm2 RA A4 area: 18.6 cm2 Doppler Measurements & Calculations MV E max trudy: 109.8 cm/sec Ao V2 max: 113.8 cm/sec LV V1 max: 84.9 cm/sec Ao max P.2 mmHg LV V1 max P.9 mmHg Ao V2 mean: 84.3 cm/sec LV V1 mean P.6 mmHg Ao mean P.1 mmHg LV V1 mean: 58.3 cm/sec Ao V2 VTI: 23.7 cm LV V1 VTI: 16.0 cm PA V2 max: 64.9 cm/sec TR max trudy: 232.8 cm/sec PA V2 mean: 49.2 cm/sec TR max P.8 mmHg ECHO/Echo Complete Interpretation Summary Left ventricular systolic function is normal. The estimated ejection fraction is 55 %. The left atrium is moderately enlarged. The right atrium is mildly enlarged. There is mild mitral annular calcification. Mild diffuse mitral valve thickening. Mild (1+) mitral valve insufficiency. Mild to moderate (1-2+) tricuspid valve insufficiency. Mild diffuse aortic valve thickening. Trivial pulmonic valve insufficiency. Right ventricular systolic pressure estimated to be 25 mmHg. Unable to assess diastolic dysfunction. Ordering Physician: Edy Mcneil Referring Physician: Edy Mcneil Performed By: Anastasia Cerrato RCS
== END | disposition home or self-care (01) ==
PROVIDERS: PCP Family Medicine; Referring Provider Internal Medicine Cardiovascular Disease; Visit Provider Internal Medicine Cardiovascular Disease
DX: I48.0 Paroxysmal atrial fibrillation (principal); R06.00 Dyspnea, unspecified
CPT/HCPCS: 93306

== ENCOUNTER → 2022-03-08 | Outpatient (CLI) | payer MEDICARE, OTHER, SELFPAY ==
[2022-03-11 21:36] LABS: Lamotrigine (Lamictal) Level 3.5 ug/mL (2.0-20.0)
== END | disposition home or self-care (01) ==
LOC: MTLAB 10:38
PROVIDERS: PCP Family Medicine; Referring Provider Psychiatry & Neurology Neurology; Visit Provider Psychiatry & Neurology Neurology
DX: G40.909 Epilepsy, unspecified, not intractable, without status epilepticus (principal)
CPT/HCPCS: 36415; 82140; 82542

== ENCOUNTER → 2022-03-12 | Outpatient (CLI) | payer MEDICARE, OTHER, SELFPAY ==
[2022-03-12 15:19] LABS: Anion Gap 3 (5-15); BUN 7 mg/dL (7-18); BUN/Creat Ratio 8.8 RATIO (10-20); Calcium,Total 9.1 mg/dL (8.5-10.1); Chloride 105 mmol/L (98-107); EST Glomerular Filtration Rate 76 mL/min (>60); Est Glom Filt Rate - Afr Amer 92 mL/min (>60); Glucose 80 mg/dL (74-106); Potassium 4.6 mmol/L (3.5-5.1); Sodium Level 138 mmol/L (136-145)
== END | disposition home or self-care (01) ==
PROVIDERS: PCP Family Medicine
DX: I48.19 Other persistent atrial fibrillation (principal)
CPT/HCPCS: 36415; 80048

== ENCOUNTER → 2022-03-29 | Outpatient (CLI) | payer MEDICARE, OTHER, SELFPAY ==
[2022-03-29 13:19] VITALS: BP 127/77; PULSE 89; RESP 16; TEMP 37; O2SAT 97
[2022-03-29] MEDS: DENOSUMAB 60 MG/ML SC (13:22)
== END | disposition home or self-care (01) ==
LOC: MEDOUTP 12:56
PROVIDERS: PCP Family Medicine; Referring Provider Internal Medicine Endocrinology, Diabetes & Metabolism; Visit Provider Internal Medicine Endocrinology, Diabetes & Metabolism
DX: M81.0 Age-related osteoporosis without current pathological fracture (principal)
CPT/HCPCS: 96372; J0897

== ENCOUNTER 2022-05-08 17:03 | Emergency (ER) | payer MEDICARE, OTHER, SELFPAY ==
[2022-05-08 17:04] VITALS: BP 181/99; PULSE 78; RESP 16; TEMP 35.9; O2SAT 100; BMI 22.9
--- NOTE | 2022-05-08 17:13 | ED.RN ---
DR. GUERRERO INFORMED OF PT CONFUSION X 2 DAYS AT 1708.
--- NOTE | 2022-05-08 17:27 | CT_ITS ---
STUDY: CT BRAIN WITHOUT CONTRAST ADMINISTRATION OF 1752 HOURS ON 05/08/2022 REASON FOR EXAM: 71-year-old female with confusion. RADIATION DOSAGE (If Supplied By Facility): CTDIvol = ( 44.99 ) mGy, DLP = ( 779.24 ) mGycm. TECHNIQUE: Transaxial CT imaging of the brain was performed without administration of intravenous contrast material. Individualized dose optimization techniques were used for this CT. Sagittal and coronal reconstructions were obtained and all were demonstrated in osseous and soft tissue algorithms. COMPARISON: 02/15/2022. FINDINGS: Mild cortical atrophy. Normal ventricular system without a midline shift. No ischemic or hemorrhagic cerebral infarct. No intracranial mass lesions or metastatic disease. No subdural, epidural, or intracerebral hematoma, hemorrhage or contusion. Normal sella and pituitary and normal brainstem and posterior fossa. Normal calvarium and paranasal sinuses. CT/Brain/Head without Contrast IMPRESSION: 1. Mild cortical atrophy. 2. No evidence cranial pathology. 3. No infarcts or mass lesions. 4. No hemorrhage or hematomas. 5. Normal calvarium and paranasal sinuses. Electronically Signed: Tanner Palma MD at 19:06 EDT ,
[2022-05-08 17:48] LABS: Mucous, Urine 0 SEEN /hpf (<or=2+); Red Blood Cells-Urine 0 SEEN /hpf (0-5)
--- NOTE | 2022-05-08 17:51 | RAD_ITS ---
STUDY: PORTABLE AP UPRIGHT CHEST X-RAY OF 1749 HOURS ON 05/08/2022 REASON FOR EXAM: 71-year-old female with chest pain. TECHNIQUE: Single view portable AP upright chest x-ray was performed per protocol. COMPARISON: 10/30/2021. FINDINGS: Borderline demineralization. Moderate cardiomegaly without heart failure. Mild emphysema. No pulmonary infiltrates, atelectasis, effusion, pulmonary mass lesions. Bosselated right hemidiaphragm. No subdiaphragmatic abnormalities. No interval change since that previous study of 10/30/2021. RAD/Chest 1 View (Portable) IMPRESSION: 1. Moderate cardiomegaly without heart failure. 2. Mild emphysema. 3. No other evidence of active cardiopulmonary disease. No pneumonia, pneumonitis, bronchitis, or pulmonary mass lesions. 4. No significant interval change since the previous study of 10/30/2021 Electronically Signed: Tanner Palma MD at 19:13 EDT ,
[2022-05-08 17:56] LABS: Absolute Lymphocyte Count 1.51 X10^3/uL (0.83-4.51); Absolute Neutrophil Count 6.5 X10^3/uL (2.0-7.7); Basophil# 0.04 X10^3/uL; Basophil% 0.5 % (0-1); Eosinophil# 0.02 X10^3/uL; Eosinophils% 0.2 % (0-5); Hematocrit 39.3 % (37-47); Hemoglobin 12.9 g/dL (12.0-15.0); Lymphocyte # 1.51 X10^3/ul (0.83-4.51); Lymphocyte % 17.7 % (19-41); Mean Corp Hgb Conc 32.8 g/dL (32-36); Mean Corpuscular Volume 88.3 fL (81-99); Mean Platelet Vol. 11.3 fl (6.2-12.0); Monocyte# 0.41 X10^3/uL; Monocyte% 4.8 % (0-10); NRBC Flagged by Analyzer 0 % (0-5); Neutrophil # 6.51 X10^3/uL (2.7-7.7); Neutrophil % 76.4 % (47-70); Platelet Count 279 K/mm3 (150-450); RBC Distribution Width CV 15.9 % (11.6-14.6); RBC Distribution Width SD 51.7 fl (35.1-43.9); Red Blood Count 4.45 M/mm3 (4.2-5.4); White Blood Count 8.5 K/mm3 (4.4-11.0)
[2022-05-08 18:04] LABS: Color, Urine Yellow (Yellow); Glucose, Dipstick Normal (Normal); Ketone-Dipstick 5 mg/dl (Negative); Leukocyte Esterase-Dipstick 25 /ul (Negative); Nitrite-Dipstick Negative (Negative); Occult Blood-Urine Negative /ul (Negative); Protein-Dipstick 15 mg/dl (Negative); Urine Bilirubin Dipstick Negative (Negative); Urine Clarity Clear (Clear); Urine Urobilinogen Normal (Normal)
[2022-05-08 18:06] LABS: ALB/GLOB Ratio 1.1 RATIO (0.9-2.4); AST(SGOT) 29 U/L (15-37); Alanine Aminotransfer ALT/SGPT 25 U/L (13-56); Albumin, Serum 4.2 g/dL (3.2-5.0); Alkaline Phosphatase 50 U/L (45-117); Anion Gap 7 (5-15); BUN 9 mg/dL (7-18); BUN/Creat Ratio 12.1 RATIO (10-20); Calcium,Total 9.5 mg/dL (8.5-10.1); Chloride 98 mmol/L (98-107); Creatinine, Serum 0.75 mg/dL (0.55-1.02); EST Glomerular Filtration Rate 82 mL/min (>60); Est Glom Filt Rate - Afr Amer 99 mL/min (>60); Globulin 3.7 g/dL (2.2-4.2); Glucose 117 mg/dL (74-106); Potassium 4.2 mmol/L (3.5-5.1); Protein, Total 7.9 g/dL (6.4-8.2); Sodium Level 133 mmol/L (136-145); Thyroid Stim Hormone (TSH) 2.36 uIU/mL (0.358-3.74); Troponin-I HS 7 pg/mL (3.0-54.0)
[2022-05-08 18:07] VITALS: BP 168/90; PULSE 74; RESP 24; O2SAT 97
[2022-05-08 18:23] LABS: Bacteria 1+ /hpf (None Seen); Squamous Epithelial Cells - UA 0-5 SEEN /hpf (5-10); White Blood Cells 0-5 SEEN /hpf (0-5)
[2022-05-08 20:00] VITALS: PULSE 69; RESP 18; O2SAT 96
--- NOTE | 2022-05-08 21:07 | EX.ED.DYSGE1 ---
HPI History of Present Illness Chief Complaint: Confusion Informant: patient and spouse/S.O. Onset/Context/Timing Onset: Days Context: Gradual Onset Timing: Continuous Quality: Forgetful Current Severity: Mild Worsened by: Nothing Relieved by: Nothing Narrative Narrative: Patient reports generalized weakness. She was triaged for confusion, but on further discussion, she is forgetful. She is on anticoagulation for history of atrial fibrillation. She had a recent cardioversion and has been doing well. She also has a history of von Willebrand's disease and gets factor replacement for that. She is having weakness, fatigue, near syncope, and not feeling well today. [facility] Medical History Acute respiratory failure with hypoxia Afib Anxiety and depression Arthritis Bleeding disorder Cardiac enzymes elevated Chronic bronchitis Essential hypertension Gallstones Heart murmur Hepatitis C History of blood clots History of blood transfusion IBS (irritable bowel syndrome) Influenza A Liver disease Mental status change Narcolepsy Neuropathy Osteoarthritis Osteopenia Osteoporosis Osteoporosis Paroxysmal atrial fibrillation Pneumonia Rheumatoid arthritis Sepsis Vitamin deficiency Von Willebrand disease Home Medications omeprazole 40 mg capsule,delayed release 40 mg PO BID gerd/acid reflux 05/18/16 [History Last Taken 10/30/21] potassium chloride 20 mEq tablet,extended release(part/cryst) 20 meq PO BID supplement 06/26/18 [History Last Taken 10/30/21] multivitamin,[id number] (Complete Multivitamin tablet) 1 tab PO DAILY 05/31/19 [History Last Taken 10/30/21] acetaminophen 500 mg tablet (Tylenol Extra Strength) 500 mg PO QHS PAIN 02/03/20 [History Last Taken 10/29/21] fluticasone propionate 50 mcg/actuation nasal spray,suspension 2 spray intranasal DAILY 07/20/20 [History Last Taken Unknown] cholecalciferol (vitamin D3) 50 mcg (2,000 unit) capsule (Vitamin D3) 50 mcg PO DAILY 10/30/21 [History Last Taken 10/30/21] denosumab 60 mg/mL subcutaneous syringe 60 mg subcut [id number] BONES 10/30/21 [History Last Taken 1 Month Ago ~10/01/21] metoprolol tartrate 50 mg tablet 75 mg PO BID 10/30/21 [History Last Taken 10/30/21] lamotrigine 25 mg tablet 50 mg PO BID #120 tabs 07/30/22 [Rx Last Taken Unknown] Allergy/AdvReac Type Severity Reaction Status Date / Time codeine Allergy Hives Verified 05/08/22 17:04 morphine Allergy Hives Verified 05/08/22 17:04 Opioids - Morphine Analogues Allergy Hives Verified 05/08/22 17:04 bupropion AdvReac Nausea Verified 05/08/22 17:04 cephalexin AdvReac Upset Verified 05/08/22 17:04 Stomach duloxetine [From Cymbalta] AdvReac Other Verified 05/08/22 17:04 levetiracetam [From Keppra] AdvReac Other Verified 05/08/22 17:04 amicar AdvReac Other Uncoded 05/08/22 17:04 sassafrass AdvReac Nausea/Vom/ Uncoded 05/08/22 17:04 Diarrhea Family History Mother Endometrial cancer Breast cancer Ovarian cancer Respiratory disease Uncle Cardiac disease Sister Liver disease Hep C Father Depression Surgical History History of breast biopsy History of cholecystectomy History of colonoscopy (~2010) History of dilation and curettage History of esophagogastroduodenoscopy (EGD) (~2005) History of repair of ACL History of total hysterectomy Social History Smoking Status: Former smoker Tobacco: How many years used: 10 how long ago did patient quit smokin second hand exposure: No alcohol intake: never substance use type: does not use caffeine: Yes Type: coffee Number of servings: 2 ROS ROS ED Constitutional Constitutional ED: Denies chills or fever(s) Eyes Eyes: Denies blurry vision or change in vision ENT ENT ED: Denies ear pain Cardiovascular Cardiovascular: Denies chest pain Respiratory/Chest Respiratory/Chest: Denies cough or dyspnea Gastrointestinal Gastrointestinal: Denies abdominal pain, diarrhea or vomiting Genitourinary Genitourinary ED: Denies dysuria Musculoskeletal Musculoskeletal: Denies arthralgias Integumentary Denies abscess Neurologic Neurologic: Denies headache(s), paresthesias or weakness Psychiatric Psychiatric: Denies anxiety or depression Endocrine Endocrinology: Denies cold intolerance Allergic/Immunologic Allergic/Immunologic ED: Denies mouth swelling EXAM Physical Exam Const Vital Signs: 05/08/22 17:04 05/08/22 17:15 05/08/22 18:07 Temperature 96.6 F L Temperature Source Temporal Pulse Rate 78 74 Respiratory Rate 16 24 H Respiratory Effort Normal Non-Labored Blood Pressure 181/99 H 168/90 H Blood Pressure Mean 126 116 Pulse Ox 100 97 Oxygen Delivery Method Room Air Room Air 05/08/22 20:00 Temperature Temperature Source Pulse Rate 69 Respiratory Rate 18 Respiratory Effort Blood Pressure Blood Pressure Mean Pulse Ox 96 Oxygen Delivery Method Room Air Positive well nourished and well developed General Appearance ED: well developed HEENT Reports moist mucous membranes Eyes PERRL and EOMs intact bilaterally Resp normal respiratory effort and clear to auscultation bilaterally Cardio regular rate and regular rhythm GI normal to inspection, nondistended, normoactive bowel sounds Extremity normal to inspection General Extremety ED: Negative for edema or tenderness General Extremity: Negative for edema Neuro oriented x3, CN's II-XII intact bilaterally and no sensory deficits noted Sensorium / Orientation: alert Motor Exam: strength 5/5 throughout Psych Mood & Affect: depressed Skin General Skin Exam: elasticity normal MDM MDM MDM Narrative Medical decision making narrative: EKG shows sinus rhythm at a rate of 75. Left anterior fascicular block. No sign of infarction. This was interpreted by me. Patient's chest x-ray shows an enlarged cardiac silhouette with emphysema changes. No other acute findings. CT brain showed no acute findings. CBC, BMP, troponin, TSH were unremarkable. Urinalysis was negative. On reevaluation, patient is feeling better. I have nothing to explain her symptoms. I do not believe this is a emergent or life-threatening process, and I believe the patient is appropriate for outpatient follow-up. Return for any new or worsening issues. Impression #1 generalized weakness Disposition is discharged home Lab Data Attestation: I reviewed the patient's lab results. Labs: Laboratory Results - last 24 hr 05/08/22 05/08/22 05/08/22 17:20 17:20 17:20 WBC 8.5 RBC 4.45 Hgb 12.9 Hct 39.3 MCV 88.3 MCH 29.0 MCHC 32.8 RDW Std Deviation 51.7 H RDW Coeff of Tony 15.9 H Plt Count 279 MPV 11.3 Immature Gran % (Auto) 0.400 Neut % (Auto) 76.4 H Lymph % (Auto) 17.7 L [place] % (Auto) 4.8 Eos % (Auto) 0.2 Baso % (Auto) 0.5 Absolute Neuts (auto) 6.5 Absolute Lymphs (auto) 1.51 Nucleated RBC % 0 Sodium 133 L Potassium 4.2 Chloride 98 Carbon Dioxide 28.0 Anion Gap 7 BUN 9 Creatinine 0.75 Estim Creat Clear Calc 45.20 Est GFR (MDRD) Af Amer 99 Est GFR (MDRD) Non-Af 82 BUN/Creatinine Ratio 12.1 Glucose 117 H Calcium 9.5 Total Bilirubin 0.40 AST 29 ALT 25 Alkaline Phosphatase 50 Ammonia 17.0 Troponin I High Sens 7 Total Protein 7.9 Albumin 4.2 Globulin 3.7 Albumin/Globulin Ratio 1.1 TSH 2.36 Urine Color Urine Clarity Urine pH Ur Specific [place] Urine Protein Urine Glucose (UA) Urine Ketones Urine Occult Blood Urine Nitrite Urine Bilirubin Urine Urobilinogen Ur Leukocyte Esterase Urine RBC Urine WBC Ur Squamous Epith Cells Urine Bacteria Urine Mucus 05/08/22 17:40 WBC RBC Hgb Hct MCV MCH MCHC RDW Std Deviation RDW Coeff of Tony Plt Count MPV Immature Gran % (Auto) Neut % (Auto) Lymph % (Auto) Dare % (Auto) Eos % (Auto) Baso % (Auto) Absolute Neuts (auto) Absolute Lymphs (auto) Nucleated RBC % Sodium Potassium Chloride Carbon Dioxide Anion Gap BUN Creatinine Estim Creat Clear Calc Est GFR (MDRD) Af Amer Est GFR (MDRD) Non-Af BUN/Creatinine Ratio Glucose Calcium Total Bilirubin AST ALT Alkaline Phosphatase Ammonia Troponin I High Sens Total Protein Albumin Globulin Albumin/Globulin Ratio TSH Urine Color Yellow Urine Clarity Clear Urine pH 8.0 Ur Specific [place] 1.010 Urine Protein 15 H Urine Glucose (UA) Normal Urine Ketones 5 H Urine Occult Blood Negative Urine Nitrite Negative Urine Bilirubin Negative Urine Urobilinogen Normal Ur Leukocyte Esterase 25 H Urine RBC 0 SEEN Urine WBC 0-5 SEEN Ur Squamous Epith Cells 0-5 SEEN Urine Bacteria 1+ Urine Mucus 0 SEEN Radiography Diagnostic Testing: Clinical Impression(s) from Imaging Studies Brain CT 05/08/22 17:27 IMPRESSION: 1. Mild cortical atrophy. 2. No evidence cranial pathology. 3. No infarcts or mass lesions. 4. No hemorrhage or hematomas. 5. Normal calvarium and paranasal sinuses. Electronically Signed: Tanner Palma MD at 19:06 EDT , Chest X-Ray 05/08/22 17:51 IMPRESSION: 1. Moderate cardiomegaly without heart failure. 2. Mild emphysema. 3. No other evidence of active cardiopulmonary disease. No pneumonia, pneumonitis, bronchitis, or pulmonary mass lesions. 4. No significant interval change since the previous study of 10/30/2021 Electronically Signed: Tanner Palma MD at 19:13 EDT , Discharge Plan Triage Chief Complaint: Confusion ED Provider: Kevin Nash Dx/Rx/DC Orders Clinical Impression: Confusion Prescriptions: No Action Complete Multivitamin Tablet 1 tab PO DAILY acetaminophen [Tylenol Extra Strength] 500 mg tablet 500 mg PO QHS fluticasone propionate 50 mcg/actuation spray,suspension 2 spray INTRANASAL DAILY lamotrigine 25 mg tablet 50 mg PO BID Qty: 120 6RF omeprazole 40 MG capsule 40 mg PO BID Label Comments: gerd/acid reflux potassium chloride 20 MEQ tablet,ER particles/crystals 20 meq PO BID metoprolol tartrate 50 mg tablet 75 mg PO BID cholecalciferol (vitamin D3) [Vitamin D3] 50 mcg (2,000 unit) Capsule 50 mcg PO DAILY denosumab 60 mg/mL syringe 60 mg subcut [id number] Primary Care Provider: Robert Patel Referrals: Robert Patel MD [Primary Care Provider] - Disposition Disposition: Home, Self Care
== END 2022-05-08 21:21 | disposition home or self-care (01) ==
PROVIDERS: Emergency Provider Emergency Medicine; PCP Family Medicine; Visit Provider Emergency Medicine
DX: R41.0 Disorientation, unspecified (principal); M06.9 Rheumatoid arthritis, unspecified; I48.0 Paroxysmal atrial fibrillation; I44.4 Left anterior fascicular block; M81.0 Age-related osteoporosis without current pathological fracture; D68.00 Von Willebrand disease, unspecified; I10 Essential (primary) hypertension; R53.1 Weakness; Z87.891 Personal history of nicotine dependence; Z79.899 Other long term (current) drug therapy; Z79.01 Long term (current) use of anticoagulants
CPT/HCPCS: 36592; 70450; 71045; 80053; 81001; 82140; 84443; 84484; 85025; 93005; 99284; A4216

== ENCOUNTER 2022-05-09 18:29 | Emergency (ER) | payer MEDICARE, OTHER, SELFPAY ==
[2022-05-09 18:31] VITALS: BP 188/89; PULSE 73; RESP 18; TEMP 35.9; O2SAT 100; BMI 22.6
--- NOTE | 2022-05-09 18:59 | EDS_ITS ---
HPI History of Present Illness Chief Complaint: Chest Pain Narrative Narrative: 8-year-old female presenting to the ER for chest pain. She states is chronic and is unchanged. She also has a lot of fatigue and generalized weakness. She was seen in the emergency room yesterday at [facility] and she was ultimately discharged after a normal work-up. She called her cardiology team at [facility] today with her symptoms. She states nobody got back to work during the day. She states that after hours she called again and the fellow that was on-call for cardiology told her that she probably needs to go to the nearest emergency room because she cannot evaluate her. Her symptoms have not changed dramatically. [facility] Medical History Acute respiratory failure with hypoxia Afib Anxiety and depression Arthritis Bleeding disorder Cardiac enzymes elevated Chronic bronchitis Essential hypertension Gallstones Heart murmur Hepatitis C History of blood clots History of blood transfusion IBS (irritable bowel syndrome) Influenza A Liver disease Mental status change Narcolepsy Neuropathy Osteoarthritis Osteopenia Osteoporosis Osteoporosis Paroxysmal atrial fibrillation Pneumonia Rheumatoid arthritis Sepsis Vitamin deficiency Von Willebrand disease Home Medications omeprazole 40 mg capsule,delayed release 40 mg PO BID gerd/acid reflux 05/18/16 [History Last Taken 10/30/21] potassium chloride 20 mEq tablet,extended release(part/cryst) 20 meq PO BID supplement 06/26/18 [History Last Taken 10/30/21] multivitamin,[id number] (Complete Multivitamin tablet) 1 tab PO DAILY 05/31/19 [History Last Taken 10/30/21] acetaminophen 500 mg tablet (Tylenol Extra Strength) 500 mg PO QHS PAIN 02/03/20 [History Last Taken 10/29/21] fluticasone propionate 50 mcg/actuation nasal spray,suspension 2 spray intranasal DAILY 07/20/20 [History Last Taken Unknown] cholecalciferol (vitamin D3) 50 mcg (2,000 unit) capsule (Vitamin D3) 50 mcg PO DAILY 10/30/21 [History Last Taken 10/30/21] denosumab 60 mg/mL subcutaneous syringe 60 mg subcut [id number] BONES 10/30/21 [History Last Taken 1 Month Ago ~10/01/21] metoprolol tartrate 50 mg tablet 75 mg PO BID 10/30/21 [History Last Taken 10/30/21] lamotrigine 25 mg tablet 50 mg PO BID #120 tabs 03/02/22 [Rx Last Taken Unknown] Allergy/AdvReac Type Severity Reaction Status Date / Time codeine Allergy Hives Verified 05/09/22 18:34 morphine Allergy Hives Verified 05/09/22 18:34 Opioids - Morphine Analogues Allergy Hives Verified 05/09/22 18:34 bupropion AdvReac Nausea Verified 05/09/22 18:34 cephalexin AdvReac Upset Verified 05/09/22 18:34 Stomach duloxetine [From Cymbalta] AdvReac Other Verified 05/09/22 18:34 levetiracetam [From Keppra] AdvReac Other Verified 05/09/22 18:34 amicar AdvReac Other Uncoded 05/08/22 17:04 sassafrass AdvReac Nausea/Vom/ Uncoded 05/08/22 17:04 Diarrhea Family History Mother Endometrial cancer Breast cancer Ovarian cancer Respiratory disease Uncle Cardiac disease Sister Liver disease Hep C Father Depression Surgical History History of breast biopsy History of cholecystectomy History of colonoscopy (~2010) History of dilation and curettage History of esophagogastroduodenoscopy (EGD) (~2005) History of repair of ACL History of total hysterectomy Social History Smoking Status: Former smoker Tobacco: How many years used: 10 how long ago did patient quit smokin second hand exposure: No alcohol intake: never substance use type: does not use caffeine: Yes Type: coffee Number of servings: 2 ROS ROS ED Constitutional Constitutional ED: Denies chills or fever(s) Eyes Eyes: Denies blurry vision or change in vision ENT ENT ED: Denies rhinorrhea or sore throat Cardiovascular Cardiovascular: Reports as per HPI Respiratory/Chest Respiratory/Chest: Denies cough or dyspnea Gastrointestinal Gastrointestinal: Denies abdominal pain or constipation Genitourinary Genitourinary ED: Denies dysuria or hematuria Musculoskeletal Musculoskeletal: Denies arthralgias or back pain Integumentary Denies abscess or Abrasions Neurologic Neurologic: Denies headache(s) Psychiatric Psychiatric: Denies anxiety or depression EXAM Physical Exam Const Vital Signs: 05/09/22 18:31 05/09/22 18:47 05/09/22 18:47 Temperature 96.7 F L Temperature Source Temporal Pulse Rate 73 Respiratory Rate 18 Respiratory Effort Normal Non-Labored Blood Pressure 188/89 H Blood Pressure Mean 122 Pulse Ox 100 Oxygen Delivery Method Room Air Room Air 05/09/22 20:34 Temperature 97.2 F L Temperature Source Temporal Pulse Rate 65 Respiratory Rate 15 Respiratory Effort Blood Pressure 162/76 H Blood Pressure Mean 104 Pulse Ox 98 Oxygen Delivery Method Room Air Positive well nourished General Appearance ED: NAD; Negative for pallor HEENT Reports moist mucous membranes normocephalic and atraumatic Eyes PERRL and EOMs intact bilaterally Resp normal respiratory effort and clear to auscultation bilaterally Auscultation: Negative for rales, rhonchi or wheezes Cardio regular rate and regular rhythm GI normal to inspection, nondistended, normoactive bowel sounds Extremity normal to inspection General Extremety ED: Negative for edema General Extremity: Negative for edema Neuro oriented x3 and CN's II-XII intact bilaterally Sensorium / Orientation: awake and alert Motor Exam: strength 5/5 throughout Psych mental status grossly normal Skin General Skin Exam: Negative for jaundice or pallor MDM MDM MDM Narrative Medical decision making narrative: The event coordinator from [facility] Dr. Gonzalez called me to tell me that the patient was coming back. She states she was loaded with sotalol at [facility] in the hospital from the to the . She is on sotalol 80 mg twice daily. She still having dizziness and weakness and fatigue and the [facility] fellow sent her back here for evaluation. I asked her why she was getting cardiac care at [facility] for her and she did not know. Daughter states she is getting Eloctate. she had a dose in the hospital when she was cardioverted, she had a dose on Friday and she had a dose yesterday. There is concerned that this could be causing weakness. Is also concerned that sotalol can do this she request that she come back to be benji luated for the symptoms she had yesterday. She is unsure if sotalol could be causing her symptoms. EKG was obtained on arrival and on my interpretation this is a normal sinus rhythm with a ventricular to 66 bpm without sign of ischemic change or dysrhythmia CBC shows a slight leukocytosis 11.8, however hemoglobin macular stable. Platelets are normal. Renal function electrolytes within normal limits. Sensitivity troponin is 7. This is the same as it was yesterday. Chest x-ray on my interpretation shows no acute cardiopulmonary process and radiologist does agree. I paged Dr. Casanova at [facility] he is her EP physician. After speaking with the transfer line they were able to speak with Dr. Casanova who recommended discontinuing the sotalol. He states that nothing needed to be added or covered for tonight. He will follow-up with her tomorrow. Apparently this was already reported to the patient's but he did not call to tell them. Patient is point stable for discharge home. She is amenable to this plan. Impression: 1. Chest pain 2. Generalized weakness 3. Medication side effect Lab Data Labs: Laboratory Results - last 24 hr 05/09/22 05/09/22 18:56 18:56 WBC 11.8 H RBC 4.28 Hgb 12.0 Hct 37.0 MCV 86.4 MCH 28.0 MCHC 32.4 RDW Std Deviation 49.7 H RDW Coeff of Tony 15.7 H Plt Count 298 MPV 11.3 Immature Gran % (Auto) 0.400 Neut % (Auto) 68.9 Lymph % (Auto) 21.1 [place] % (Auto) 8.6 Eos % (Auto) 0.7 Baso % (Auto) 0.3 Absolute Neuts (auto) 8.1 H Absolute Lymphs (auto) 2.49 Nucleated RBC % 0 Sodium 133 L Potassium 4.0 Chloride 98 Carbon Dioxide 28.0 Anion Gap 7 BUN 9 Creatinine 0.77 Estim Creat Clear Calc 45.20 Est GFR (MDRD) Af Amer 95 Est GFR (MDRD) Non-Af 79 BUN/Creatinine Ratio 11.7 Glucose 123 H Calcium 9.2 Troponin I High Sens 7 Radiography Diagnostic Testing: Clinical Impression(s) from Imaging Studies Chest X-Ray 05/09/22 19:26 IMPRESSION: ASHD. No acute cardiopulmonary pathology Electronically Signed: Akbar Jo MD at 19:49 EDT , Discharge Plan Triage Chief Complaint: Chest Pain Other Complaint: Weakness ED Provider: Yared Maldonado Dx/Rx/DC Orders Prescriptions: No Action Complete Multivitamin Tablet 1 tab PO DAILY acetaminophen [Tylenol Extra Strength] 500 mg tablet 500 mg PO QHS fluticasone propionate 50 mcg/actuation spray,suspension 2 spray INTRANASAL DAILY lamotrigine 25 mg tablet 50 mg PO BID Qty: 120 6RF omeprazole 40 MG capsule 40 mg PO BID Label Comments: gerd/acid reflux potassium chloride 20 MEQ tablet,ER particles/crystals 20 meq PO BID metoprolol tartrate 50 mg tablet 75 mg PO BID cholecalciferol (vitamin D3) [Vitamin D3] 50 mcg (2,000 unit) Capsule 50 mcg PO DAILY denosumab 60 mg/mL syringe 60 mg subcut [id number] Primary Care Provider: Robert Patel Referrals: Robert Patel MD [Primary Care Provider] -
[2022-05-09 19:08] LABS: Absolute Lymphocyte Count 2.49 X10^3/uL (0.83-4.51); Absolute Neutrophil Count 8.1 X10^3/uL (2.0-7.7); Basophil# 0.03 X10^3/uL; Basophil% 0.3 % (0-1); Eosinophil# 0.08 X10^3/uL; Eosinophils% 0.7 % (0-5); Lymphocyte # 2.49 X10^3/ul (0.83-4.51); Lymphocyte % 21.1 % (19-41); Mean Corp Hgb Conc 32.4 g/dL (32-36); Mean Corpuscular Volume 86.4 fL (81-99); Mean Platelet Vol. 11.3 fl (6.2-12.0); Monocyte# 1.01 X10^3/uL; Monocyte% 8.6 % (0-10); NRBC Flagged by Analyzer 0 % (0-5); Neutrophil # 8.13 X10^3/uL (2.7-7.7); Neutrophil % 68.9 % (47-70); Platelet Count 298 K/mm3 (150-450); RBC Distribution Width CV 15.7 % (11.6-14.6); RBC Distribution Width SD 49.7 fl (35.1-43.9); Red Blood Count 4.28 M/mm3 (4.2-5.4); White Blood Count 11.8 K/mm3 (4.4-11.0)
--- NOTE | 2022-05-09 19:26 | RAD_ITS ---
STUDY: X-RAY CHEST REASON FOR EXAM: Female, 71 years old. chest pain TECHNIQUE: AP portable COMPARISON: 05/08/2022 FINDINGS: The lungs are clear and expanded. There is no demonstrated pleural abnormality. Heart is enlarged.. Normal mediastinum and alis. Normal visualized pulmonary arteries. Mildly calcified aortic arch and descending thoracic aorta. Central line noted on the right with tip in distal superior vena cava Dorsal spine demonstrates mild degenerative change. Normal visualized ribs, clavicles, and shoulders. There is no demonstrated abnormality of the visualized soft tissue structures of the upper abdomen. RAD/Chest 1 View (Portable) IMPRESSION: ASHD. No acute cardiopulmonary pathology Electronically Signed: Akbar Jo MD at 19:49 EDT ,
[2022-05-09 19:27] LABS: Anion Gap 7 (5-15); BUN 9 mg/dL (7-18); BUN/Creat Ratio 11.7 RATIO (10-20); Calcium,Total 9.2 mg/dL (8.5-10.1); Chloride 98 mmol/L (98-107); Creatinine, Serum 0.77 mg/dL (0.55-1.02); EST Glomerular Filtration Rate 79 mL/min (>60); Est Glom Filt Rate - Afr Amer 95 mL/min (>60); Glucose 123 mg/dL (74-106); Sodium Level 133 mmol/L (136-145); Troponin-I HS (w/2H Reflex) 7 pg/mL (3.0-54.0)
[2022-05-09 20:34] VITALS: BP 162/76; PULSE 65; RESP 15; TEMP 36.2; O2SAT 98
[2022-05-09 20:43] VITALS: BP 162/76; PULSE 65; RESP 15; TEMP 36.2; O2SAT 98
[2022-05-09 21:06] LABS: Reflex Troponin-HS? (from REC) Y
== END 2022-05-09 20:53 | disposition home or self-care (01) ==
PROVIDERS: Emergency Provider Student in an Organized Health Care Education/Training Program; PCP Family Medicine; Visit Provider Student in an Organized Health Care Education/Training Program
DX: R07.9 Chest pain, unspecified (principal); M06.9 Rheumatoid arthritis, unspecified; I48.0 Paroxysmal atrial fibrillation; R53.83 Other fatigue; D68.00 Von Willebrand disease, unspecified; Z87.891 Personal history of nicotine dependence; R42 Dizziness and giddiness; I10 Essential (primary) hypertension; M81.0 Age-related osteoporosis without current pathological fracture; T44.7X5A Adverse effect of beta-adrenoreceptor antagonists, initial encounter; G89.29 Other chronic pain; Z79.899 Other long term (current) drug therapy
CPT/HCPCS: 36592; 71045; 80048; 84484; 85025; 93005; 99283; A4216

== ENCOUNTER → 2022-05-13 | Outpatient (CLI) | payer MEDICARE, OTHER, SELFPAY ==
[2022-05-13 18:42] LABS: Anion Gap 17 (5-15); BUN 8 mg/dL (7-18); BUN/Creat Ratio 8.6 RATIO (10-20); Calcium,Total 9.8 mg/dL (8.5-10.1); Chloride 109 mmol/L (98-107); Creatinine, Serum 0.93 mg/dL (0.55-1.02); EST Glomerular Filtration Rate 63 mL/min (>60); Est Glom Filt Rate - Afr Amer 76 mL/min (>60); Glucose 82 mg/dL (74-106); Magnesium 2.2 mg/dL (1.6-2.6); Potassium 5.4 mmol/L (3.5-5.1); Sodium Level 140 mmol/L (136-145); Troponin-I HS 12 pg/mL (3.0-54.0)
== END | disposition home or self-care (01) ==
LOC: MFPLAB 11:54
PROVIDERS: PCP Family Medicine; Visit Provider Family Medicine
DX: R07.9 Chest pain, unspecified (principal); E87.1 Hypo-osmolality and hyponatremia
CPT/HCPCS: 36415; 80048; 83735; 84484

== ENCOUNTER → 2022-06-05 | Outpatient (CLI) | payer MEDICARE, OTHER, SELFPAY ==
[2022-06-05 13:27] LABS: Anion Gap 6 (5-15); BUN 7 mg/dL (7-18); BUN/Creat Ratio 11.2 RATIO (10-20); Calcium,Total 9.4 mg/dL (8.5-10.1); Chloride 104 mmol/L (98-107); Creatinine, Serum 0.63 mg/dL (0.55-1.02); EST Glomerular Filtration Rate 100 mL/min (>60); Est Glom Filt Rate - Afr Amer 121 mL/min (>60); Glucose 74 mg/dL (74-106); Potassium 4.3 mmol/L (3.5-5.1); Sodium Level 139 mmol/L (136-145)
== END | disposition home or self-care (01) ==
LOC: MFPLAB 10:51
PROVIDERS: PCP Family Medicine; Referring Provider Family Medicine; Visit Provider Family Medicine
DX: R30.0 Dysuria (principal); E87.5 Hyperkalemia
CPT/HCPCS: 36415; 80048; 87077; 87086; 87088; 87186

== ENCOUNTER 2022-08-01 08:27 | Outpatient (CLI) | payer MEDICARE, OTHER, SELFPAY ==
[2022-08-01 10:11] LABS: Absolute Lymphocyte Count 1.62 X10^3/uL (0.83-4.51); Basophil# 0.07 X10^3/uL; Basophil% 0.6 % (0-1); Eosinophil# 0.07 X10^3/uL; Eosinophils% 0.6 % (0-5); Hematocrit 40.2 % (37-47); Hemoglobin 13.3 g/dL (12.0-15.0); Lymphocyte # 1.62 X10^3/ul (0.83-4.51); Lymphocyte % 13.8 % (19-41); Mean Corp Hgb Conc 33.1 g/dL (32-36); Mean Corpuscular Hgb 30.5 pg (27.0-32.0); Mean Corpuscular Volume 92.2 fL (81-99); Mean Platelet Vol. 11.1 fl (6.2-12.0); Monocyte# 0.84 X10^3/uL; Monocyte% 7.1 % (0-10); NRBC Flagged by Analyzer 0 % (0-5); Neutrophil # 9.01 X10^3/uL (2.7-7.7); Neutrophil % 76.6 % (47-70); Platelet Count 341 K/mm3 (150-450); RBC Distribution Width CV 13.5 % (11.6-14.6); RBC Distribution Width SD 45.8 fl (35.1-43.9); Red Blood Count 4.36 M/mm3 (4.2-5.4); White Blood Count 11.8 K/mm3 (4.4-11.0)
[2022-08-01 10:26] LABS: Vitamin B12 947 pg/mL (211-911); Vitamin D,25 Hydroxy 60.5 ng/mL
[2022-08-01 10:34] LABS: Erythrocyte Sedimentation Rate 10 mm/hr (0-30)
[2022-08-01 10:50] LABS: ALB/GLOB Ratio 1.3 RATIO (0.9-2.4); AST(SGOT) 14 U/L (15-37); Alanine Aminotransfer ALT/SGPT 18 U/L (13-56); Alkaline Phosphatase 43 U/L (45-117); Anion Gap 6 (5-15); BUN 7 mg/dL (7-18); BUN/Creat Ratio 8.6 RATIO (10-20); CRP < 2.90 mg/L (0.0-3.0); Calcium,Total 9.9 mg/dL (8.5-10.1); Chloride 101 mmol/L (98-107); Creatinine, Serum 0.81 mg/dL (0.55-1.02); EST Glomerular Filtration Rate 74 mL/min (>60); Est Glom Filt Rate - Afr Amer 90 mL/min (>60); Ferritin 217 ng/mL (8-252); Globulin 3.1 g/dL (2.2-4.2); Glucose 107 mg/dL (74-106); Iron 106 ug/dL (50-170); Potassium 4.5 mmol/L (3.5-5.1); Protein, Total 7.1 g/dL (6.4-8.2); Sodium Level 136 mmol/L (136-145); Thyroid Stim Hormone (TSH) 1.39 uIU/mL (0.358-3.74)
== END 2022-08-01 23:59 | disposition home or self-care (01) ==
LOC: MFPLAB 08:28
PROVIDERS: PCP Family Medicine; Referring Provider Family Medicine; Visit Provider Family Medicine
DX: B18.2 Chronic viral hepatitis C (principal); R53.1 Weakness; E55.9 Vitamin D deficiency, unspecified
CPT/HCPCS: 36415; 80053; 82306; 82607; 82728; 83540; 84443; 85025; 85652; 86140

== ENCOUNTER → 2022-08-06 | Outpatient (CLI) | payer MEDICARE, OTHER, SELFPAY ==
--- NOTE | 2022-08-06 10:22 | RAD_ITS ---
STUDY: X-RAY CHEST REASON FOR EXAM: Female, 71 years old. Upper respiratory infection. TECHNIQUE: Frontal and lateral views of the chest. COMPARISON: May 09, 2022. FINDINGS: Stable mild hyperinflation There is no demonstrated pleural abnormality. Borderline cardiomegaly unchanged. Normal mediastinum and alis. Normal visualized pulmonary arteries. Stable aortic tortuosity. Moderate lower thoracic spondylosis unchanged. Normal visualized ribs, clavicles, and shoulders. There is no demonstrated abnormality of the visualized soft tissue structures of the upper abdomen. RAD/Chest PA and Lateral IMPRESSION: Stable chest with no acute or active cardiopulmonary disease. Electronically Signed: Troy Stack, at 10:44 EST ,
[2022-08-06 12:20] LABS: Absolute Lymphocyte Count 1.99 X10^3/uL (0.83-4.51); Absolute Neutrophil Count 6.5 X10^3/uL (2.0-7.7); Basophil# 0.08 X10^3/uL; Basophil% 0.8 % (0-1); Eosinophil# 0.16 X10^3/uL; Eosinophils% 1.6 % (0-5); Hematocrit 38.5 % (37-47); Hemoglobin 12.7 g/dL (12.0-15.0); Lymphocyte # 1.99 X10^3/ul (0.83-4.51); Lymphocyte % 20.2 % (19-41); Mean Corpuscular Hgb 30.3 pg (27.0-32.0); Mean Corpuscular Volume 91.9 fL (81-99); Mean Platelet Vol. 11.4 fl (6.2-12.0); Monocyte# 1.09 X10^3/uL; Monocyte% 11.1 % (0-10); NRBC Flagged by Analyzer 0 % (0-5); Neutrophil # 6.45 X10^3/uL (2.7-7.7); Neutrophil % 65.6 % (47-70); Platelet Count 288 K/mm3 (150-450); RBC Distribution Width CV 13.4 % (11.6-14.6); RBC Distribution Width SD 45.4 fl (35.1-43.9); Red Blood Count 4.19 M/mm3 (4.2-5.4); White Blood Count 9.8 K/mm3 (4.4-11.0)
== END | disposition home or self-care (01) ==
LOC: MTLAB 10:22
PROVIDERS: PCP Family Medicine; Referring Provider Family Medicine; Visit Provider Family Medicine
DX: J06.9 Acute upper respiratory infection, unspecified (principal)
CPT/HCPCS: 36415; 71046; 85025

== ENCOUNTER → 2022-09-27 | Outpatient (CLI) | payer MEDICARE, OTHER, SELFPAY ==
[2022-09-27 12:55] VITALS: BP 133/86; PULSE 64; RESP 16; TEMP 35.9; O2SAT 100; BMI 22.8
[2022-09-27] MEDS: DENOSUMAB 60 MG/ML SC (12:58)
== END | disposition home or self-care (01) ==
LOC: MEDOUTP 12:48
PROVIDERS: PCP Family Medicine; Referring Provider Internal Medicine Endocrinology, Diabetes & Metabolism; Visit Provider Internal Medicine Endocrinology, Diabetes & Metabolism
DX: M81.0 Age-related osteoporosis without current pathological fracture (principal)
CPT/HCPCS: 96372; J0897

== ENCOUNTER → 2022-10-01 | Outpatient (CLI) | payer MEDICARE, OTHER, SELFPAY ==
[2022-10-01 12:25] LABS: Absolute Lymphocyte Count 1.89 X10^3/uL (0.83-4.51); Absolute Neutrophil Count 10.9 X10^3/uL (2.0-7.7); Basophil# 0.04 X10^3/uL; Basophil% 0.3 % (0-1); Eosinophil# 0.01 X10^3/uL; Eosinophils% 0.1 % (0-5); Hematocrit 40.2 % (37-47); Hemoglobin 13.5 g/dL (12.0-15.0); Lymphocyte # 1.89 X10^3/ul (0.83-4.51); Lymphocyte % 13.8 % (19-41); Mean Corp Hgb Conc 33.6 g/dL (32-36); Mean Corpuscular Hgb 29.5 pg (27.0-32.0); Mean Platelet Vol. 11.5 fl (6.2-12.0); Monocyte# 0.83 X10^3/uL; Monocyte% 6.1 % (0-10); NRBC Flagged by Analyzer 0 % (0-5); Neutrophil # 10.86 X10^3/uL (2.7-7.7); Neutrophil % 79.1 % (47-70); Platelet Count 319 K/mm3 (150-450); RBC Distribution Width CV 12.6 % (11.6-14.6); RBC Distribution Width SD 40.9 fl (35.1-43.9); Red Blood Count 4.57 M/mm3 (4.2-5.4); White Blood Count 13.7 K/mm3 (4.4-11.0)
[2022-10-01 13:11] LABS: ALB/GLOB Ratio 1.5 RATIO (0.9-2.4); AST(SGOT) 20 U/L (15-37); Alanine Aminotransfer ALT/SGPT 18 U/L (13-56); Albumin, Serum 4.4 g/dL (3.2-5.0); Alkaline Phosphatase 46 U/L (45-117); Anion Gap 9 (5-15); BUN 9 mg/dL (7-18); BUN/Creat Ratio 12.9 RATIO (10-20); Calcium,Total 9.8 mg/dL (8.5-10.1); Chloride 94 mmol/L (98-107); EST Glomerular Filtration Rate 88 mL/min (>60); Est Glom Filt Rate - Afr Amer 106 mL/min (>60); Glucose 97 mg/dL (74-106); Potassium 4.4 mmol/L (3.5-5.1); Protein, Total 7.4 g/dL (6.4-8.2); Sodium Level 130 mmol/L (136-145); Thyroid Stim Hormone (TSH) 1.66 uIU/mL (0.358-3.74)
[2022-10-07 18:57] LABS: Pancreatic Elastase, Fecal 342 (>200)
== END | disposition home or self-care (01) ==
PROVIDERS: PCP Family Medicine; Referring Provider Family Medicine; Visit Provider Nurse Practitioner Family
DX: R19.7 Diarrhea, unspecified (principal); R53.1 Weakness
CPT/HCPCS: 36415; 80053; 82653; 83630; 84443; 85025; 87177; 87209; 87493

== ENCOUNTER → 2022-10-07 | Outpatient (CLI) | payer MEDICARE, OTHER, SELFPAY ==
[2022-10-07 16:01] LABS: Troponin-I HS 19 pg/mL (3.0-54.0)
== END | disposition home or self-care (01) ==
LOC: LAB 15:22
PROVIDERS: PCP Family Medicine; Referring Provider Physician Assistant Medical; Visit Provider Physician Assistant Medical
DX: R07.9 Chest pain, unspecified (principal)
CPT/HCPCS: 36415; 84484

== ENCOUNTER → 2022-10-17 | Outpatient (CLI) | payer MEDICARE, OTHER, SELFPAY ==
[2022-10-17 18:04] LABS: Absolute Lymphocyte Count 2.22 X10^3/uL (0.83-4.51); Absolute Neutrophil Count 5.6 X10^3/uL (2.0-7.7); Basophil# 0.04 X10^3/uL; Basophil% 0.5 % (0-1); Eosinophils% 2.3 % (0-5); Hematocrit 38.2 % (37-47); Hemoglobin 12.2 g/dL (12.0-15.0); Lymphocyte # 2.22 X10^3/ul (0.83-4.51); Lymphocyte % 25.1 % (19-41); Mean Corp Hgb Conc 31.9 g/dL (32-36); Mean Corpuscular Hgb 28.9 pg (27.0-32.0); Mean Corpuscular Volume 90.5 fL (81-99); Mean Platelet Vol. 11.3 fl (6.2-12.0); Monocyte# 0.77 X10^3/uL; Monocyte% 8.7 % (0-10); NRBC Flagged by Analyzer 0 % (0-5); Neutrophil # 5.58 X10^3/uL (2.7-7.7); Neutrophil % 62.8 % (47-70); Platelet Count 285 K/mm3 (150-450); RBC Distribution Width CV 13.3 % (11.6-14.6); RBC Distribution Width SD 43.9 fl (35.1-43.9); Red Blood Count 4.22 M/mm3 (4.2-5.4); White Blood Count 8.9 K/mm3 (4.4-11.0)
[2022-10-17 18:22] LABS: Osmolality, Serum 291 mOsm/KG (280-301)
[2022-10-17 18:34] LABS: Anion Gap 8 (5-15); BUN 11 mg/dL (7-18); BUN/Creat Ratio 15.7 RATIO (10-20); Calcium,Total 9.5 mg/dL (8.5-10.1); Chloride 103 mmol/L (98-107); EST Glomerular Filtration Rate 88 mL/min (>60); Est Glom Filt Rate - Afr Amer 106 mL/min (>60); Glucose 97 mg/dL (74-106); Potassium 4.5 mmol/L (3.5-5.1); Sodium Level 137 mmol/L (136-145); Thyroid Stim Hormone (TSH) 1.66 uIU/mL (0.358-3.74)
== END | disposition home or self-care (01) ==
LOC: MFPLAB 15:23
PROVIDERS: PCP Family Medicine; Referring Provider Family Medicine; Visit Provider Family Medicine
DX: I48.91 Unspecified atrial fibrillation (principal); E87.1 Hypo-osmolality and hyponatremia
CPT/HCPCS: 36415; 80048; 83930; 84443; 85025

== ENCOUNTER → 2022-11-28 | Outpatient (CLI) | payer MEDICARE, OTHER, SELFPAY ==
[2022-11-28 12:31] LABS: Absolute Neutrophil Count 6.5 X10^3/uL (2.0-7.7); Basophil# 0.05 X10^3/uL; Basophil% 0.5 % (0-1); Eosinophil# 0.08 X10^3/uL; Eosinophils% 0.8 % (0-5); Hematocrit 40.4 % (37-47); Hemoglobin 13.2 g/dL (12.0-15.0); Mean Corp Hgb Conc 32.7 g/dL (32-36); Mean Corpuscular Hgb 28.7 pg (27.0-32.0); Mean Corpuscular Volume 87.8 fL (81-99); Mean Platelet Vol. 10.9 fl (6.2-12.0); Monocyte# 0.97 X10^3/uL; Monocyte% 10.2 % (0-10); NRBC Flagged by Analyzer 0 % (0-5); Neutrophil # 6.54 X10^3/uL (2.7-7.7); Neutrophil % 69.1 % (47-70); Platelet Count 310 K/mm3 (150-450); RBC Distribution Width CV 13.4 % (11.6-14.6); RBC Distribution Width SD 43.2 fl (35.1-43.9); White Blood Count 9.5 K/mm3 (4.4-11.0)
[2022-11-28 12:49] LABS: Erythrocyte Sedimentation Rate 4 mm/hr (0-30)
[2022-11-28 12:55] LABS: Vitamin B12 1829 pg/mL (211-911)
[2022-11-28 12:59] LABS: ALB/GLOB Ratio 1.2 RATIO (0.9-2.4); AST(SGOT) 22 U/L (15-37); Alanine Aminotransfer ALT/SGPT 22 U/L (13-56); Albumin, Serum 4.1 g/dL (3.2-5.0); Alkaline Phosphatase 49 U/L (45-117); Anion Gap 4 (5-15); BUN 8 mg/dL (7-18); BUN/Creat Ratio 10.6 RATIO (10-20); Calcium,Total 9.6 mg/dL (8.5-10.1); Chloride 98 mmol/L (98-107); Creatinine, Serum 0.75 mg/dL (0.55-1.02); EST Glomerular Filtration Rate 81 mL/min (>60); Est Glom Filt Rate - Afr Amer 98 mL/min (>60); Globulin 3.3 g/dL (2.2-4.2); Glucose 82 mg/dL (74-106); Potassium 4.1 mmol/L (3.5-5.1); Protein, Total 7.4 g/dL (6.4-8.2); Sodium Level 130 mmol/L (136-145); Thyroid Stim Hormone (TSH) 1.81 uIU/mL (0.358-3.74)
== END | disposition home or self-care (01) ==
LOC: MFPLAB 09:46
PROVIDERS: PCP Family Medicine; Visit Provider Family Medicine
DX: R53.1 Weakness (principal); E55.9 Vitamin D deficiency, unspecified
CPT/HCPCS: 36415; 80053; 82306; 82533; 82607; 84443; 85025; 85652

== ENCOUNTER → 2022-12-03 | Outpatient (CLI) | payer MEDICARE, OTHER, SELFPAY | END | disposition home or self-care (01) | LOC: MFPLAB 09:20 | PROVIDERS: PCP Family Medicine; Visit Provider Family Medicine | DX: R53.1 Weakness (principal) | CPT/HCPCS: 36415; 81050; 82533 ==

== ENCOUNTER → 2022-12-06 | Outpatient (CLI) | payer MEDICARE, OTHER, SELFPAY | END | disposition home or self-care (01) | LOC: MFPLAB 14:07 | PROVIDERS: PCP Family Medicine; Visit Provider Family Medicine | DX: E87.1 Hypo-osmolality and hyponatremia (principal) | CPT/HCPCS: 81050; 82530 ==

== ENCOUNTER 2023-01-07 17:55 | Emergency (ER) | payer MEDICARE, OTHER, SELFPAY ==
[2023-01-07 17:56] VITALS: BP 177/79; PULSE 79; RESP 18; TEMP 35.6; O2SAT 100; BMI 22.8
--- NOTE | 2023-01-07 20:55 | ED.VIS.DENTA ---
HPI History of Present Illness Chief Complaint: Dental Narrative Narrative: 72-year-old female has past medical history of von Willebrand's disease. She presents with her wanting injection of factor VIII. They state that usually before dental procedure, or any other sort of procedure she received factor VIII. Other things such as Stimate do not work for her von Willebrand's. She went to the dentist today and thought she was having caps put on her teeth, but she was not seen by her regular dentist and they state that this other dentist extracted 4 of her teeth in her upper jaw. She has had bleeding since the procedure at 3 PM, almost 5 to 6 hours ago. They present wanting infusion of factor VIII, as they are occupational therapist's assistant is in [place]. [facility] Medical History Acute respiratory failure with hypoxia Afib Anxiety and depression Arthritis Bleeding disorder Cardiac enzymes elevated Cataract, left eye Chronic bronchitis Essential hypertension Gallstones Heart murmur Hepatitis C History of blood clots History of blood transfusion IBS (irritable bowel syndrome) Influenza A Liver disease Mental status change Narcolepsy Neuropathy Osteoarthritis Osteopenia Osteoporosis Osteoporosis Paroxysmal atrial fibrillation Pneumonia Rheumatoid arthritis Sepsis Vitamin deficiency Von Willebrand disease Home Medications omeprazole 40 mg capsule,delayed release 40 mg PO BID gerd/acid reflux 05/18/16 [History Last Taken 10/30/21] multivitamin,[id number] (Complete Multivitamin tablet) 1 tab PO DAILY 05/31/19 [History Last Taken 10/30/21] cholecalciferol (vitamin D3) 50 mcg (2,000 unit) capsule (Vitamin D3) 50 mcg PO DAILY 10/30/21 [History Last Taken 10/30/21] denosumab 60 mg/mL subcutaneous syringe 60 mg subcut [id number] BONES 10/30/21 [History Last Taken 1 Month Ago ~10/01/21] acetaminophen 325 mg tablet 325 mg PO BID PRN Pain 05/15/22 [History Last Taken Unknown] fluticasone propionate 50 mcg/actuation nasal spray,suspension 2 spray intranasal DAILY PRN allergies 05/15/22 [History Last Taken Unknown] metoprolol tartrate 50 mg tablet 50 mg PO BID 05/15/22 [History Last Taken Unknown] potassium chloride 20 mEq tablet,extended release(part/cryst) 20 meq PO DAILY supplement 05/15/22 [History Last Taken Unknown] donepezil 10 mg tablet 10 mg PO QHS #30 tabs 09/25/22 [Rx Last Taken Unknown] donepezil 5 mg tablet 5 mg PO QHS #30 tabs 09/25/22 [Rx Last Taken Unknown] lamotrigine 25 mg tablet 50 mg PO BID #120 tabs 09/25/22 [Rx Last Taken Unknown] Allergy/AdvReac Type Severity Reaction Status Date / Time codeine Allergy Hives Verified 01/07/23 17:58 morphine Allergy Hives Verified 01/07/23 17:58 Opioids - Morphine Analogues Allergy Hives Verified 01/07/23 17:58 sotalol AdvReac Unknown Confusion Verified 01/07/23 17:58 aminocaproic acid AdvReac NEEDS Verified 01/07/23 17:58 [From Amicar] FOLLOW-UP bupropion AdvReac Nausea Verified 01/07/23 17:58 cephalexin AdvReac Upset Verified 01/07/23 17:58 Stomach duloxetine [From Cymbalta] AdvReac Other Verified 01/07/23 17:58 Food Allergies: Uncoded AdvReac Nausea/Vom/ Verified 01/07/23 17:58 Diarrhea levetiracetam [From Keppra] AdvReac Other Verified 01/07/23 17:58 Family History Mother Endometrial cancer Breast cancer Ovarian cancer Respiratory disease Uncle Cardiac disease Sister Liver disease Hep C Father Depression Surgical History History of breast biopsy History of cholecystectomy History of colonoscopy (~2010) History of dilation and curettage History of esophagogastroduodenoscopy (EGD) (~2005) History of repair of ACL History of total hysterectomy Social History Smoking Status: Former smoker Tobacco: How many years used: 10 how long ago did patient quit smokin second hand exposure: No alcohol intake: never substance use type: does not use caffeine: Yes Type: coffee Number of servings: 2 ROS ROS ED ROS Narrative Constitutional: No fever, no chills. HEENT: No sore throat. No neck pain. No loss of vision. No rhinorrhea. Bleeding from dental extractions. Cardiovascular: No chest pain. No palpitations. No pedal edema. Respiratory: No cough, no shortness of breath. Abdominal: No abdominal pain. No nausea. No vomiting. Genitourinary: No dysuria. No hematuria. Musculoskeletal: No myalgias. No arthralgias. Neurologic: No headaches. No dizziness. No lightheadedness. Skin: No rash. No change in color. Psychiatric: No depression. No anxiety. EXAM Physical Exam Narrative Exam Narrative: Afebrile. Vital signs noted. HEENT: Normocephalic. Atraumatic. PERRL, EOMI. Neck soft and supple. No point tenderness or step off. Evidence of for tooth extractions and upper jaw, 2 on left and 2 on right, with clot noted, minimal bright red blood on gauze that the patient has been biting on. Cardiovascular: Regular rate and rhythm. No murmurs, rubs, or gallops appreciated. Respiratory: No tachypnea. Lungs clear to auscultation bilaterally. Gastrointestinal: Abdomen soft, nontender, with normoactive bowel sounds. No rebound or guarding. Neurological: Awake. Alert. Nonfocal, nonlateralizing. Skin: No rash. Normal color. No pallor. Musculoskeletal: No pedal edema. Full range of motion extremities. Const Vital Signs: 01/07/23 17:56 Temperature 96.1 F L Temperature Source Temporal Pulse Rate 79 Respiratory Rate 18 Blood Pressure 177/79 H Blood Pressure Mean 111 Pulse Ox 100 Oxygen Delivery Method Room Air MDM MDM MDM Narrative Medical decision making narrative: I reviewed the patient's prior ED visits. Additionally, I am unsure if factor VIII is available here at this facility. I discussed the patient with Dr. Edy Ahumada with hematology/oncology as the patient states she is usually seen in [place], and that her occupational therapist's assistant reportedly has privileges at the [facility] site. He states that the patient would need transfer to a tertiary care facility for factor VIII. When they were told this, the patient and her signed out AGAINST MEDICAL ADVICE and did not want to wait for ED to ED transfer. They were informed of the risk of permanent disability and by signing out AMA and not waiting for transfer. They acknowledged an understanding. I feel that the patient has the capacity to sign out AGAINST MEDICAL ADVICE. Patient currently is in stable condition. History & Record Review Discussion w/independent historian: Patient and Family Additional record(s) reviewed:: Prior ED visit Discharge Plan Triage Chief Complaint: Dental ED Provider: Bernardino Stanford Dx/Rx/DC Orders Prescriptions: No Action Complete Multivitamin Tablet 1 tab PO DAILY fluticasone propionate 50 mcg/actuation spray,suspension 2 spray INTRANASAL DAILY PRN (Reason: allergies) acetaminophen 325 mg tablet 325 mg PO BID PRN (Reason: Pain) lamotrigine 25 mg tablet 50 mg PO BID Qty: 120 5RF donepezil 5 mg tablet 5 mg PO QHS Qty: 30 0RF donepezil 10 mg tablet 10 mg PO QHS Qty: 30 5RF Rx Instructions: Begin after completing one month of treatment of donepezil 5mg nightly omeprazole 40 MG capsule 40 mg PO BID Label Comments: gerd/acid reflux potassium chloride 20 mEq tablet,ER particles/crystals 20 meq PO DAILY cholecalciferol (vitamin D3) [Vitamin D3] 50 mcg (2,000 unit) Capsule 50 mcg PO DAILY denosumab 60 mg/mL syringe 60 mg subcut [id number] metoprolol tartrate 50 mg tablet 50 mg PO BID Primary Care Provider: Robert Patel Referrals: Robert Patel MD [Primary Care Provider] -
== END 2023-01-07 20:50 | disposition left against medical advice (07) ==
PROVIDERS: Emergency Provider Emergency Medicine; PCP Family Medicine; Visit Provider Emergency Medicine
DX: K08.89 Other specified disorders of teeth and supporting structures (principal); M06.9 Rheumatoid arthritis, unspecified; J42 Unspecified chronic bronchitis; I48.0 Paroxysmal atrial fibrillation; D68.00 Von Willebrand disease, unspecified; Z98.818 Other dental procedure status; I10 Essential (primary) hypertension; Z53.29 Procedure and treatment not carried out because of patient's decision for other reasons; Z79.899 Other long term (current) drug therapy; Z87.891 Personal history of nicotine dependence
CPT/HCPCS: 99281; 99282

== ENCOUNTER → 2023-02-17 | Outpatient (CLI) | payer MEDICARE, OTHER, SELFPAY ==
[2023-02-17 14:57] LABS: Hematocrit 39.3 % (37-47); Hemoglobin 12.9 g/dL (12.0-15.0); Mean Corp Hgb Conc 32.8 g/dL (32-36); Mean Corpuscular Volume 91.4 fL (81-99); Platelet Count 313 K/mm3 (150-450); RBC Distribution Width CV 13.4 % (11.6-14.6); RBC Distribution Width SD 44.7 fl (35.1-43.9); White Blood Count 9.9 K/mm3 (4.4-11.0)
[2023-02-17 15:43] LABS: Vitamin B12 684 pg/mL (211-911); Vitamin D,25 Hydroxy 71.1 ng/mL
[2023-02-17 17:01] LABS: Anion Gap 6 (5-15); BUN 7 mg/dL (7-18); BUN/Creat Ratio 9.2 RATIO (10-20); Calcium,Total 9.2 mg/dL (8.5-10.1); Chloride 102 mmol/L (98-107); Creatinine, Serum 0.76 mg/dL (0.55-1.02); EST Glomerular Filtration Rate 80 mL/min (>60); Est Glom Filt Rate - Afr Amer 97 mL/min (>60); Ferritin 123 ng/mL (8-252); Glucose 92 mg/dL (74-106); Iron 77 ug/dL (50-170); Potassium 4.2 mmol/L (3.5-5.1); Sodium Level 136 mmol/L (136-145)
[2023-02-17 18:49] LABS: Osmolality, Serum 282 mOsm/KG (280-301)
== END | disposition home or self-care (01) ==
LOC: MTLAB 12:35
PROVIDERS: PCP Family Medicine; Referring Provider Family Medicine; Visit Provider Family Medicine
DX: M81.0 Age-related osteoporosis without current pathological fracture (principal); D64.9 Anemia, unspecified; E87.1 Hypo-osmolality and hyponatremia; E53.8 Deficiency of other specified B group vitamins
CPT/HCPCS: 36415; 80048; 82306; 82607; 82728; 83540; 83930; 84443; 85027

== ENCOUNTER → 2023-03-06 | Outpatient (CLI) | payer MEDICARE, OTHER, SELFPAY ==
--- NOTE | 2023-03-06 15:03 | BD_ITS ---
STUDY: DUAL ENERGY X-RAY ABSORPTIOMETRY / DXA REASON FOR EXAM: Female, 72 years old. 627.8Menopausal postmenopausal BONE DENSITY REASON FOR EXAM TECHNIQUE: Bone Mineral Density (BMD) measurements of lumbar spine and bilateral hips were obtained. COMPARISON: Comparison is made with prior study dated January 11, 2020. FINDINGS: Lumbar Spine (L1-L4): g/cm2 (0.837) / T-score (-1.9) / Z-score (0.3) Findings are suggestive of osteopenia with a moderate fracture risk. Left Femur Total: g/cm2 (0.655) / T-score (-2.4) / Z-score (-0.8) Left Femoral Neck: g/cm2 (0.5-3) / T-score (-2.9) / Z-score (-1.1) Right Femur Total: g/cm2 (0.668) / T-score (-2.2) / Z-score (-0.7) Right Femoral Neck: g/cm2 (0.560) / T-score (-2.6) / Z-score (-0.7) The T-Scores on the most recent prior examination were: Lumbar Spine (L1-L4): There has been improvement of bone density since the previous examination. Left Femur Total: which represents an improvement of 12.9%. Right Femur Total: which represents an improvement of 19%. BD/Dexa Bone Density Study IMPRESSION: The patient is considered osteoporotic as outlined below according to World Jef[employer] Organization (WHO) criteria with a high fracture risk. There has been improvement of bone density since the previous examination. Reference Information: The T-score is the number of standard deviations above or below the standard which is normal for young adults at their peak bone mineral density. The World Health Organization (WHO) interprets the T-scores as follows: Above -1 Normal bone density Between -1 and -2.5 Osteopenia Equal to / or below -2.5 Osteoporosis As a practical clinical guideline, osteopenia may be graded as follows: Mild -1 through -1.5 Moderate -1.6 through -2.0 Severe -2.1 through -2.4 The Z-score is the number of standard deviations above or below age-matched controls. A Z-score of less than -1.5 would be considered abnormal. References: 1. NIH Osteoporosis and Related Bone Diseases www osteo.org 2. International Society for Clinical Densitometry www iscd.org 3. National Osteoporosis Foundation www nof.org Electronically Signed: Chandana Maldonado MD at 13:02 EDT ,
--- NOTE | 2023-03-06 15:03 | BI_ITS ---
MAMMOGRAPHY - BILATERAL SCREENING REASON FOR EXAM: Female, 72 years old. Routine annual screening examination. PERTINENT HISTORY: Aunts with breast cancer. TECHNIQUE: Digital bilateral breast jeanette (3D mammographic acquisition) in the CC and MLO projections. 2-D mediolateral oblique (MLO) and craniocaudad (CC) views of both breasts were obtained. CAD: Full Field Digital Mammography with Computer Added Detection was performed. COMPARISON: Comparison is made with prior study dated January 11, 2020 and January 01, 2019. FINDINGS: Breast Composition: There are scattered areas of fibroglandular density. There are no dominant masses or suspicious calcifications. Once again, there is stable asymmetry of breast tissue were more breast tissue is seen in the upper lateral aspect of the left breast as compared to the right side. No other significant abnormalities are identified. There has been no significant change since the prior study. BI/SCRN MAMM (CAD)W/JEANETTE BILAT IMPRESSION: Stable bilateral screening mammogram. Yearly follow-up mammogram recommended. (A) ASSESSMENT CATEGORY: BIRADS Category 2: Benign. A letter regarding these results will be sent to the patient by the facility within 30 days. Approximately 10% of breast cancers are not detected by mammography. A normal mammogram should not delay biopsy of a clinically suspicious abnormality. [id number] Electronically Signed: Chandana Maldonado MD at 9:04 EDT ,
== END | disposition home or self-care (01) ==
PROVIDERS: PCP Family Medicine; Referring Provider Family Medicine; Visit Provider Family Medicine
DX: Z12.31 Encounter for screening mammogram for malignant neoplasm of breast (principal); Z78.0 Asymptomatic menopausal state; Z80.3 Family history of malignant neoplasm of breast; M81.0 Age-related osteoporosis without current pathological fracture
CPT/HCPCS: 77063; 77067; 77080

== ENCOUNTER 2023-03-28 09:57 | Outpatient (CLI) | payer MEDICARE, OTHER, SELFPAY ==
[2023-03-28] MEDS: DENOSUMAB 60 MG/ML SC (10:18)
[2023-03-28 10:20] VITALS: BP 138/64; PULSE 66; RESP 16; O2SAT 100; BMI 22.4
== END 2023-03-28 09:58 | disposition home or self-care (01) ==
LOC: MEDOUTP 09:57
PROVIDERS: PCP Family Medicine; Referring Provider Internal Medicine Endocrinology, Diabetes & Metabolism; Visit Provider Internal Medicine Endocrinology, Diabetes & Metabolism
DX: M81.0 Age-related osteoporosis without current pathological fracture (principal)
CPT/HCPCS: 96372; J0897

== ENCOUNTER → 2023-07-03 | Outpatient (CLI) | payer MEDICARE, OTHER, SELFPAY ==
[2023-07-07 19:06] LABS: Lamotrigine (Lamictal) Level 2.3 ug/mL (2.0-20.0)
== END | disposition home or self-care (01) ==
LOC: MTLAB 15:00
PROVIDERS: PCP Family Medicine; Referring Provider Psychiatry & Neurology Neurology; Visit Provider Psychiatry & Neurology Neurology
DX: G40.909 Epilepsy, unspecified, not intractable, without status epilepticus (principal)
CPT/HCPCS: 36415; 82140; 82542

== ENCOUNTER 2023-09-25 11:45 | Outpatient (CLI) | payer MEDICARE, OTHER, SELFPAY ==
--- NOTE | 2023-09-25 11:53 | RAD_ITS ---
INDICATION: Increased bowel sounds EXAMINATION/TECHNIQUE: X-RAY - XR Abdomen W/ Decub and/or Erect Views COMPARISON: No relevant prior comparison study available FINDINGS: BOWEL GAS PATTERN: Non-obstructive. Nonspecific gaseous duodenum. FREE AIR: No evidence of free air. ORGANOMEGALY: Not seen. CALCIFICATIONS: No abnormal calcifications observed. LOWER CHEST: No acute pathology. BONES AND SOFT TISSUES: No acute pathology. RAD/Abd Inc Decub and/or Erect IMPRESSION: Non-obstructive bowel gas pattern. Electronically Signed: Pablo Wiggins MD at 12:09 EST ,
[2023-09-25 14:32] LABS: Hematocrit 39.8 % (37-47); Hemoglobin 12.6 g/dL (12.0-15.0); Mean Corp Hgb Conc 31.7 g/dL (32-36); Mean Corpuscular Hgb 29.4 pg (27.0-32.0); Mean Corpuscular Volume 92.8 fL (81-99); Mean Platelet Vol. 10.3 fl (6.2-12.0); Platelet Count 308 K/mm3 (150-450); RBC Distribution Width CV 13.7 % (11.6-14.6); RBC Distribution Width SD 46.1 fl (35.1-43.9); Red Blood Count 4.29 M/mm3 (4.2-5.4); White Blood Count 8.8 K/mm3 (4.4-11.0)
[2023-09-25 14:45] LABS: Vitamin B12 484 pg/mL (211-911); Vitamin D,25 Hydroxy 47.4 ng/mL
[2023-09-25 14:47] LABS: Erythrocyte Sedimentation Rate 1 mm/hr (0-30)
[2023-09-25 15:00] LABS: ALB/GLOB Ratio 1.2 RATIO (0.9-2.4); AST(SGOT) 17 U/L (15-37); Alanine Aminotransfer ALT/SGPT 20 U/L (13-56); Albumin, Serum 3.8 g/dL (3.2-5.0); Alkaline Phosphatase 51 U/L (45-117); Anion Gap 5 (5-15); BUN 9 mg/dL (7-18); BUN/Creat Ratio 10.5 RATIO (10-20); CRP 3.07 mg/L (0.0-3.0); Calcium,Total 8.9 mg/dL (8.5-10.1); Chloride 102 mmol/L (98-107); Creatinine, Serum 0.86 mg/dL (0.55-1.02); EST Glomerular Filtration Rate 69 mL/min (>60); Est Glom Filt Rate - Afr Amer 83 mL/min (>60); Ferritin 128 ng/mL (8-252); Globulin 3.1 g/dL (2.2-4.2); Glucose 101 mg/dL (74-106); Iron 91 ug/dL (50-170); Potassium 4.3 mmol/L (3.5-5.1); Protein, Total 6.9 g/dL (6.4-8.2); Sodium Level 134 mmol/L (136-145); Thyroid Stim Hormone (TSH) 1.79 uIU/mL (0.358-3.74)
== END 2023-09-25 23:59 | disposition home or self-care (01) ==
LOC: MTLAB 11:46
PROVIDERS: PCP Family Medicine; Referring Provider Family Medicine; Visit Provider Family Medicine
DX: B18.2 Chronic viral hepatitis C (principal); G37.9 Demyelinating disease of central nervous system, unspecified; K58.9 Irritable bowel syndrome, unspecified; E55.9 Vitamin D deficiency, unspecified; E87.1 Hypo-osmolality and hyponatremia
CPT/HCPCS: 36415; 74019; 80053; 82306; 82607; 82728; 83540; 84443; 85027; 85652; 86140

== ENCOUNTER → 2023-09-29 | Outpatient (CLI) | payer MEDICARE, OTHER, SELFPAY ==
--- OUTSIDE RECORDS SUMMARY | 2023-09-30 | XMS RPT_ITS | CCD ---
Author Name Unknown Address [address] [place] [address] Organization [facility] Care Team Providers Care Real Time Analyst Name Role Phone Haroon Patel MD Primary Care Provider Ajit PAEZ/Nilay DAVIS Unavailable HAROON PATEL Primary Care Unavailabl e HOWARD CASANOVA Attending Unavailable HOWARD CASANOVA Referring Unavailable HAROON PATEL Primary Care Unavailabl e NILAY SEBASTIAN Referring Unavailable OSMIN DUMONT Attending Un available HAROON PATEL Primary Care Unavailabl e SELF, SELF Referring Unavailable OSMIN DUMONT Attending Un available HAROON PATEL Primary Care Unavailabl e OLIVA LAWTON Referring Unavailable OLIVA LAWTON Attending Unavailable OSMIN DUMONT Referring Un available NADINE HINKLE Attending Unavailable HAROON PATEL Primary Care Unavailabl e HAROON PATEL Primary Care Unavailabl e HAROON PATEL Primary Care Unavailabl e HAROON PATEL Primary Care Unavailabl e OSMIN DUMONT Referring Un available NADINE HINKLE Attending Unavailable HAROON PATEL Primary Care Unavailabl e BOLEMAGDALENORA Referring Unavailable HOWARD CASANOVA Attending Unavailable HAROON PATEL Primary Care Unavailabl e HAROON PATEL Primary Care Unavailabl e CONSULT, HEMATOLOGY Consulting Unavailable HOWARD CASANOVA Admitting Unavailable HOWARD CASANOVA Attending Unavailable MARY LEVI Admitting Unavailable MARY LEVI Attending Unavailable CONSULT, HEMATOLOGY Consulting Unavailable HAROON PATEL Primary Care UnavailHaroon Shrestha MD Primary Care Provider Edy Mcneil Unavailable GAYLE MARTINEZ Primary Care Unavailable HAROON PATEL Primary Care HAROON Torre Primary Care SHERLYE Etienne Attending Unavailable ANALILIA OMER Referring Unavailable Allergies Allergy Classification Reported Allergen(s) Allergy Type Date of Onset Reaction(s) Facility (8 sources) Codeine; Translations: [CODEINE] [facility] (8 sources) desmopressin; Translations: [DESMOPRESSIN] Drug Allergy 4 Itching, [facility] Only, [facility] ([facility] Morphine; Translations: [MORPHINE] Drug Allergy 0 Nausea Only, Unknown [facility] (6 sources) Sulfonamides (Antibiotic) Propensity to adverse reactions to drug 0 Itching, Nausea Only [facility] (2 sources) 6-Aminocaproic Acid; Translations: [AMINOCAPROIC ACID] Drug Allergy 9 Other: See Comments [facility] Work Phone: (2 sources) buPROPion; Translations: [BUPROPION] Drug Allergy 9 GI Upset [facility] Work Phone: (2 sources) Cephalexin; Translations: [CEPHALEXIN] Drug Allergy 9 GI Upset [facility] Work Phone: (2 sources) DULoxetine; Translations: [DULOXETINE] Drug Allergy 9 Other: See Comments [facility] Work Phone: (2 sources) Etanercept; Translations: [ETANERCEPT] Drug Allergy 9 Other: See Comments [facility] Work Phone: (2 sources) levETIRAcetam; Translations: [LEVETIRACETAM] Drug Allergy 9 Other: See Comments [facility] Work Phone: (2 sources) Sotalol; Translations: [SOTALOL] Drug Allergy 2 Other: See Comments, Shortness of Breath [facility] Work Phone: (2 sources) Sulfonamides (Antibiotic); Translations: [SULFA (SULFONAMIDE ANTIBIOTICS)] Drug Allergy 0 Itching, GI Upset [facility] Work Phone: (2 sources) Sassafras Oil; Translations: [SASSAFRAS OIL] Propensity to adverse reactions to drug 2 Unknown [facility] Medications Current Medications Medication Drug Class(es) Dates Sig (Normalized) Sig (Original) Cholecalciferol (6 sources) Vitamin D Multiple Vitamins-Minerals (MULTIVITAMIN WOMEN PO) (6 sources) take 0.5 tablet by mouth once daily Multiple Vitamins-Minerals (MULTIVITAMIN WOMEN PO) Take 0.5 tablets by mouth daily. 0 Active Potassium (6 sources) take 20 mEq by mouth twice daily POTASSIUM PO Take 20 mEq by mouth 2 times daily. 0 Active Completed/Discontinued Medications Medication Drug Class(es) Dates Sig (Normalized) Sig (Original) 6-aminocaproic acid 250 mg/ml oral solution (1 source) Antifibrinolytic Agent Start: 04-24-2022 End: 08-19-2022 aminocaproic acid (AMICAR) 250 mg/mL (25 %) solution Take 3000 mg every 6 hours as directed and as needed for bleeding 0 04/24/2022 08/19/2022 Discontinued (Other) Problems Active Problems Problem Classification Problem Date Documented Date Episodic/Chronic Cardiac dysrhythmias (8 sources) Persistent atrial fibrillation; Translations: [Other persistent atrial fibrillation] Onset: 03-06-2022 Chronic Coagulation and hemorrhagic disorders (3 sources) von Willebrand disorder; Translations: [Von Willebrand's disease] Onset: 05-31-2004 Chronic Deficiency and other anemia (7 sources) Iron deficiency anemia due to blood loss; Translations: [Iron deficiency anemia secondary to blood loss (chronic)] Onset: 01-31-2022 Chronic Deficiency and other anemia (2 sources) Iron deficiency anemia secondary to blood loss (chronic); Translations: [Iron deficiency anemia secondary to blood loss (chronic)] Onset: 01-31-2022 Chronic Esophageal disorders (1 source) Gastroesophageal reflux disease; Translations: [Gastro-esophageal reflux disease without esophagitis] Onset: 08-19-2022 08-19-2022 Chronic Essential hypertension (5 sources) Benign essential hypertension; Translations: [Essential (primary) hypertension] Onset: 03-06-2022 Chronic Other hematologic conditions (2 sources) Personal history of diseases of the blood and blood-forming organs and certain disorders involving the immune mechanism; Translations: [Personal history of diseases of the blood and blood-forming organs and certain disorders involving the immune mechanism] Onset: 04-29-2022 Episodic Other lower respiratory disease (2 sources) Shortness of breath; Translations: [Shortness of breath] Onset: 03-06-2022 Episodic Residual codes; unclassified (2 sources) At risk of hemorrhage; Translations: [Other specified personal risk factors, not elsewhere classified] Onset: 08-16-2022 Episodic Unclassified (2 sources) Chronic atrial fibrillation, unspecified; Translations: [Chronic atrial fibrillation, unspecified] Onset: 04-29-2022 Unclassified (3 sources) Other persistent atrial fibrillation; Translations: [Other persistent atrial fibrillation] Onset: 04-29-2022 Unclassified (2 sources) Longstanding persistent atrial fibrillation; Translations: [Longstanding persistent atrial fibrillation] Onset: 04-29-2022 Unclassified (2 sources) Dental Problem; Translations: [Dental Problem] Onset: 01-08-2023 Unclassified (1 source) Bleeding/Bruising Onset: 01-08-2023 Past or Other Problems Problem Classification Problem Date Documented Da te Episodic/Chronic Coagulation and hemorrhagic disorders (3 sources) Bleeds easily; Translations: [Hemorrhagic condition, unspecified] Onset: 02-14-2022 Episodic Immunizations and screening for infectious disease (3 sources) Patient encounter status; Translations: [Encounter for screening for other viral diseases] Onset: 01-03-2022 Episodic Mood disorders (6 sources) Mood disorders Onset: 01-03-2022 01-03-2022 Other hematologic conditions (6 sources) H/O: blood disorder; Translations: [Personal history of diseases of the blood and blood-forming organs and certain disorders involving the immune mechanism] Onset: 02-21-2022 Episodic Other lower respiratory disease (5 sources) Dyspnea; Translations: [Dyspnea, unspecified] Onset: 03-06-2022 Episodic Other upper respiratory disease (8 sources) Bleeding from nose; Translations: [Epistaxis] Onset: 02-20-2022 Episodic Residual codes; unclassified (4 sources) Other specified personal risk factors, not elsewhere classified; Translations: [Other specified personal history presenting hazards to health] Onset: 08-16-2022 Episodic Results Test Name Value Interpretation Reference Range Facil ity Vital Signs Date Time Vital Sign Value Performing Clinician Facility 08-19-2022 15:22-0500 Body height 162.6 cm Sherley Ozuna MD Work Phone: [facility] 08-19-2022 15:22-0500 Body weight 59.88 kg Sherley Ozuna MD Work Phone: [facility] 08-19-2022 15:22-0500 Diastolic blood pressure 86 mm[Hg] Sherley Ozuna MD Work Phone: [facility] 08-19-2022 15:22-0500 Heart rate 76 /min Sherley Ozuna MD Work Phone: [facility] 08-19-2022 15:22-0500 SaO2% (BldA) [Mass fraction] 100 % Sherley Ozuna MD Work Phone: [facility] 08-19-2022 15:22-0500 Systolic blood pressure 147 mm[Hg] Sherley Ozuna MD Work Phone: [facility] 03-04-2022 13:19-0400 Body height 162.6 cm Nadine Hinkle MD Work Phone: [facility] 03-04-2022 13:19-0400 Body mass index (BMI) [Ratio] 22.73 kg/m2 Nadine Hinkle MD Work Phone: [facility] 03-04-2022 13:19-040 Body temperature 97.11 [degF] Nadine Hinkle MD Work Phone: [facility] 03-04-2022 13:19-0400 Body weight 60.06 kg Nadine Hinkle MD Work Phone: [facility] 03-04-2022 13:19-0400 Diastolic blood pressure 70 mm[Hg] Nadine Hinkle MD Work Phone: [facility] Encounters Encounter Date Encounter Type Care Provider Facility Start: 01-08-2023 Emergency department patient visit HAROON PATEL Facility:[facility] Start: 01-08-2023 End: 01-08-2023 [facility] Start: 08-19-2022 End: 08-19-2022 ambulatory HAROON PATEL Facility:[facility] Start: 08-19-2022 End: 08-19-2022 Patient encounter procedure Sherley Ozuna MD Work Phone: [facility] Procedures Date Procedure Procedure Detail Performing Clinician Start: 08-19-2022 Ecg routine ecg w/le ast 12 lds w/i&r Sherley Ozuna MD Work Phone: Start: 02-21-2022 Thromboplastin time partial plasma/whole blood Adele Deepa PHONE SPECIALIST-MEDICAL OFFICE ADMINISTRATOR Work Phone: Start: 02-21-2022 Assay of troponin quantitative Alanna Ramirez PHONE SPECIALIST-MEDICAL OFFICE ADMINISTRATOR Work Phone: Start: 02-21-2022 CONTINUOUS CARDIAC MONITORING STRIP Other Other Start: 02-20-2022 CBC AND ELECTRONIC DIFF Param Elena MD Work Phone: Start: 02-20-2022 Complete blood count with white cell differential, automated Param Elena MD Work Phone: Start: 02-20-2022 LT BLUE TOP TUBE Param Elena MD Work Phone: Start: 02-20-2022 Prothrombin time Param Elena MD Work Phone: Start: 01-03-2022 End: 01-03-2022 Antibody screen Osmin Sandoval MD Work Phone: Plan of Treatment Date Care Activity Detail Author Start: 08-20-2022 End: 08-20-2022 Patient encounter procedure 08/20/2022 Office Visit Hematology Oliva Lawtno, PHONE SPECIALIST-MEDICAL OFFICE ADMINISTRATOR [address] [place] [id number] Division of Hematology & Oncology Start: 08-04-2022 ADVANCE DIRECTIVE DISCUSSION ADVANCE DIRECTIVE DISCUSSION [facility] Start: 08-04-2022 DEPRESSION ASSESSMENT DEPRESSION ASSESSMENT [facility] Start: 06-10-2022 End: 06-10-2022 Patient encounter procedure 06/10/2022 Office Visit Cardiovascular Medicine Nadine Hinkle MD [address] [place] [address] [facility] Start: 04-04-2022 Influenza vaccination INFLUENZA VACCINE (#1) [facility] Start: 03-04-2022 End: 03-04-2022 Patient encounter procedure 03/04/2022 Office Visit Cardiovascular Medicine Nadine Hinkle MD [address] [place] [address] [facility] Start: 01-29-2022 End: 01-29-2023 FACTOR VIII INHIBITOR FACTOR VIII INHIBITOR Lab Routine Hemorrhagic diathesis Expected: 01/29/2022, Expires: 01/29/2023 [facility] Immunizations Immunization Date Immunization Notes Care Provider Fa cili 04-23-2022 influenza, injectabl e, quadrivalent, contains preservative Sherley Ozuna MD Work Phone: [facility] Work Phone: 05-16-2021 influenza, injectabl e, quadrivalent, contains preservative Sherley Ozuna MD Work Phone: [facility] Work Phone: 05-16-2021 influenza virus vacc ine, unspecified formulation Patti Delgado RN [facility] 05-10-2019 influenza, seasonal, injectable Sherley Schweikert MD Work Phone: [facility] Work Phone: 09-22-2017 pneumococcal polysaccharide vaccine, 23 valreed Ozuna MD Work Phone: [facility] Work Phone: 05-21-2017 influenza, seasonal, injectable Sherley Ozuna MD Work Phone: [facility] Work Phone: 05-21-2017 pneumococcal conjuga te vaccine, 13 valreed Ozuna MD Work Phone: [facility] Work Phone: 05-04-2017 pneumococcal conjuga te vaccine, 13 valreed Ozuna MD Work Phone: [facility] Work Phone: 04-07-2017 influenza, seasonal, injectable Sherley Ozuna MD Work Phone: [facility] Work Phone: 04-07-2017 influenza, seasonal, injectable, preservative free Sherley Ozuna MD Work Phone: [facility] Work Phone: 05-04-2016 influenza, seasonal, injectable Sherley Ozuna MD Work Phone: [facility] Work Phone: 05-04-2016 influenza, seasonal, injectable, preservative free Sherley Ozuna MD Work Phone: [facility] Work Phone: 04-15-2016 influenza, seasonal, injectable Sherley Ozuna MD Work Phone: [facility] Work Phone: 06-26-2015 influenza, seasonal, injectable Sherley Ozuna MD Work Phone: [facility] Work Phone: 09-15-2012 pneumococcal polysaccharide vaccine, 23 valreed Ozuna MD Work Phone: [facility] Work Phone: Payers Date Payer Category Payer Unknown [id number] 2019 Unknown [id number] 2011 Medicare [id number] 2011 Medicare [id number] 2011 Unknown [id number] 1950 Unknown [id number] 2.16. [id number] 1950 Unknown [id number] 2.16. [id number] 1950 Unknown [id number] 2.16. [id number] 1950 Unknown [id number] 2.16. [id number] 1951 Unknown [id number] 2.16. [id number] 1951 Unknown [id number] 2.16. [id number] 1951 Unknown [id number] 2.16. [id number] 1950 Unknown [id number] 2.16. [id number] 1950 Unknown [id number] 2.16. [id number] 1951 Unknown [id number] 2.16. [id number] 1951 Unknown [id number] 2.16. [id number] 1950 Unknown [id number] 2.16. [id number] Social History Date Type Detail Facility Start: 11-05-2019 End: 08-19-2022 Tobacco smoking status NHIS Ex-smoker [facility] End: 08-04-1991 History of tobacco use Current smoker [facility] End: 08-04-1991 History of tobacco use Cigarette Smoker [facility] Start: 11-05-2019 Cigarettes smoked current (pack per day) - Reported 2 [facility] Start: 11-05-2019 End: 08-19-2022 Tobacco use and exposure Smokeless tobacco non-user [facility] Start: 01-29-2022 End: 03-04-2022 Alcohol intake Ex-drinker (finding) [facility] Start: 1950 Sex Assigned At Not on file O [facility] Start: 08-24-2022 Alcohol intake Current non-dr enterprise application architect of alcohol (finding) [facility] Clinical Notes 01-03-2022 to 08-19-2022 Emily Beach MA - 08/19/2022 3:32 PM Vignesh Ozuna MD - 08/19/2022 3:20 PM ESTTelephone Encounter - Flavio Babin RN - 03/15/2022 2:42 PM EDTPatient InstructionsPatient Instructions Note Date & Type Note Facility 08-19-2022 Note HNO ID: [id number] Author: Sherley Ozuna MD Service: ? Author Type: Physician Type: Progress Notes Filed: 08/24/2022 3:26 PM Note Text: PRIMARY CARE PHYSICIAN: Haroon Patel (Morris) [address] [place] [address] REFERRING PHYSICIAN: Analilia Omer [address] [place] [id number] Patient Care Team: Haroon Patel MD as PCP - General (Family Medicine) Edy Mcneil as Specialty Assistant Product Manager (Cardiology) Analilia Omer MD as Specialty Assistant Product Manager (Hematology/Oncology) CHIEF COMPLAINT: Evaluation for arrhythmia HISTORY OF PRESENT ILLNESS: Ms. Calvillo is a 71 year old female who presents today for evaluation of arrhythmia, referred by Dr. Analilia Omer, Vp [employer]. Ms. Calvillo has history of atrial fibrillation, diagnosed in about 2018. She had atrial fibrillation when she was hospitalized, had some type of respiratory arrest and then the atrial fibrillation occurred. The arrhythmia spontaneously converted back to sinus rhythm. She states that she is not aware of having atrial fibrillation after that until 2021 when she was experiencing fatigue and shortness of breath, particularly with exertion. She was evaluated by her primary care physician and was found to be in atrial fibrillation. She was evaluated at [facility] by an automatic folder seamer, this was about April 2022, she was treated with sotalol and oral anticoagulation with Eliquis. She underwent electrical cardioversion to restore sinus rhythm at that time. She states that the sotalol was discontinued in May 2022 because she was experiencing symptoms that she attributed as side effects to the sotalol, such as fatigue, weakness, chest discomfort, dizziness and brain fog. She was then treated with metoprolol. She states that the anticoagulation therapy for stroke prevention has been problematic, because she has von Willebrand disease. She stopped taking the Eliquis in late May 2022. There has been question about whether she would be candidate for Watchman left atrial appendage closure device as alternative to oral anticoagulation therapy. This option had been mentioned by the [facility] EP physician (Dr. Casanova). She presents to discuss the option. I have confirmed and edited as necessary, the PFSH and ROS obtained by others. PAST MEDICAL HISTORY Diagnosis Date Acid reflux Anemia Arthritis At risk for bleeding associated with anticoagulants At risk for stroke [id number] = 2 (age, female gender); she denies have HTN; age and female gender are considered soft risk factors for stroke from atrial fibrillation, considered borderline or intermediate Clostridium difficile infection 2004 Depression Fibromyalgia Generalized anxiety disorder GERD (gastroesophageal reflux disease) Hepatitis C treated [id number], cleared High blood pressure previously on lisinopril for high blood pressure, but discontinued as the blood pressure normalized Inflammatory polyarthropathy (HCC) Osteoarthrosis Osteopenia Vitamin D deficiency Von Willebrand's disease PAST SURGICAL HISTORY Procedure Laterality Date BIOPSY BREAST CARDIOVERSION, ELECTIVE, ELECTRICAL 04/2022 [facility]; after sotalol loading DANDC, DIAG AND/OR THERAPEUTIC 04/04/1970 D AND C HYSTERECTOMY HX 1987 KNEE SURGERY HX 08/04/2006 knee surgery REMOVAL GALLBLADDER cholecsystectomy SOCIAL HISTORY Social History Tobacco Use Smoking status: Former Types: Cigarettes Quit date: 08/04/1987 Years since quittin.0 Smokeless tobacco: Never Substance Use Topics Alcohol use: No Drug use: No FAMILY HISTORY Problem Relation Age of Onset Cancer Mother Cancer Maternal Aunt Cancer Maternal Aunt Cancer Maternal Uncle Arthritis Paternal Grandfather ALLERGIES: ALLERGIES Allergen Reactions Sotalol Other: See Comments, Shortness of Breath Sulfa (Sulfonamide * Itching, GI Upset Aminocaproic Acid Other: See Comments Bupropion GI Upset Cephalexin GI Upset Codeine Desmopressin Unknown Duloxetine Other: See Comments Etanercept Other: See Comments Levetiracetam Other: See Comments Morphine Unknown Sassafras Oil Unknown MEDICATIONS: cyanocobalamin, vitamin B-12, (VITAMIN B-12 INJECTION) by INJECTION(UNSPECIFIED PARENTERAL ROUTES) route once every month. lamoTRIgine (LAMICTAL) 25 mg tablet Take 25 mg by mouth. metoprolol succinate ER (TOPROL XL) 50 mg 24 hr tablet Take 1 tablet by mouth once daily. LEUCOVORIN CALCIUM ORAL Take 5 mg by mouth. 3 tablets once weekly acetaminophen (TYLENOL) 500 mg tablet Take 500 mg by mouth every 6 hours as needed. omeprazole (PRILOSEC) 40 mg capsule Take 40 mg by mouth once daily. CALCIUM CARBONATE/VITAMIN D2 (CALCIUM + VITAMIN D ORAL) Take 2 teaspoonsful by mouth once daily. GENTEAL EYE DROPS (1) one drop in each eye 1-2 ti (more content not included)... [facility] 08-19-2022 Nurse Note No cardiac concerns at this time documented in this encounter [facility] 08-19-2022 History of Presen t illness Narrative PRIMARY CARE PHYSICIAN: Haroon Patel (Morris) [address] [place] [address] REFERRING PHYSICIAN: Analilia Omer [address] [place] [id number] Patient Care Team: Haroon Patel MD as PCP - General (Family Medicine) Edy Mcneil as Specialty Assistant Product Manager (Cardiology) Analilia Omer MD as Specialty Assistant Product Manager (Hematology/Oncology) CHIEF COMPLAINT: Evaluation for arrhythmia HISTORY OF PRESENT ILLNESS: Ms. Calvillo is a 71 year old female who presents today for evaluation of arrhythmia, referred by Dr. Analilia Omer, Vp [employer]. Ms. Calvillo has history of atrial fibrillation, diagnosed in about 2018. She had atrial fibrillation when she was hospitalized, had some type of respiratory arrest and then the atrial fibrillation occurred. The arrhythmia spontaneously converted back to sinus rhythm. She states that she is not aware of having atrial fibrillation after that until 2021 when she was experiencing fatigue and shortness of breath, particularly with exertion. She was evaluated by her primary care physician and was found to be in atrial fibrillation. She was evaluated at [facility] by an automatic folder seamer, this was about April 2022, she was treated with sotalol and oral anticoagulation with Eliquis. She underwent electrical cardioversion to restore sinus rhythm at that time. She states that the sotalol was discontinued in May 2022 because she was experiencing symptoms that she attributed as side effects to the sotalol, such as fatigue, weakness, chest discomfort, dizziness and brain fog. She was then treated with metoprolol. She states that the anticoagulation therapy for stroke prevention has been problematic, because she has von Willebrand disease. She stopped taking the Eliquis in late May 2022. There has been question about whether she would be candidate for Watchman left atrial appendage closure device as alternative to oral anticoagulation therapy. This option had been mentioned by the [facility] EP physician (Dr. Casanova). She presents to discuss the option. I have confirmed and edited as necessary, the PFSH and ROS obtained by others. PAST MEDICAL HISTORY Diagnosis Date Acid reflux Anemia Arthritis At risk for bleeding associated with anticoagulants At risk for stroke [id number] = 2 (age, female gender); she denies have HTN; age and female gender are considered soft risk factors for stroke from atrial fibrillation, considered borderline or intermediate Clostridium difficile infection 2004 Depression Fibromyalgia Generalized anxiety disorder GERD (gastroesophageal reflux disease) Hepatitis C treated [id number], cleared High blood pressure previously on lisinopril for high blood pressure, but discontinued as the blood pressure normalized Inflammatory polyarthropathy (HCC) Osteoarthrosis Osteopenia Vitamin D deficiency Von Willebrand's disease PAST SURGICAL HISTORY Procedure Laterality Date BIOPSY BREAST CARDIOVERSION, ELECTIVE, ELECTRICAL 04/2022 [facility]; after sotalol loading D&C, DIAG AND/OR THERAPEUTIC 04/04/1970 D & C HYSTERECTOMY HX 1987 KNEE SURGERY HX 08/04/2006 knee surgery REMOVAL GALLBLADDER cholecsystectomy SOCIAL HISTORY Social History Tobacco Use Smoking status: Former Types: Cigarettes Quit date: 08/04/1987 Years since quittin.0 Smokeless tobacco: Never Substance Use Topics Alcohol use: No Drug use: No FAMILY HISTORY Problem Relation Age of Onset Cancer Mother Cancer Maternal Aunt Cancer Maternal Aunt Cancer Maternal Uncle Arthritis Paternal Grandfather ALLERGIES: ALLERGIES Allergen Reactions Sotalol Other: See Comments, Shortness of Breath Sulfa (Sulfonamide * Itching, GI Upset Aminocaproic Acid Other: See Comments Bupropion GI Upset Cephalexin GI Upset Codeine Desmopressin Unknown Duloxetine Other: See Comments Etanercept Other: See Comments Levetiracetam Other: See Comments Morphine Unknown Sassafras Oil Unknown MEDICATIONS: cyanocobalamin, vitamin B-12, (VITAMIN B-12 INJECTION) by INJECTION(UNSPECIFIED PARENTERAL ROUTES) route once every month. lamoTRIgine (LAMICTAL) 25 mg tablet Take 25 mg by mouth. metoprolol succinate ER (TOPROL XL) 50 mg 24 hr tablet Take 1 tablet by mouth once daily. LEUCOVORIN CALCIUM ORAL Take 5 mg by mouth. 3 tablets once weekly acetaminophen (TYLENOL) 500 mg tablet Take 500 mg by mouth every 6 hours as needed. omeprazole (PRILOSEC) 40 mg capsule Take 40 mg by mouth once daily. CALCIUM CARBONATE/VITAMIN D2 (CALCIUM + VITAMIN D ORAL) Take 2 teaspoonsful by mouth once daily. GENTEAL EYE DROPS (1) one drop in each eye 1-2 times daily. REVIEW OF SYSTEMS: Review of Systems Constitutional: Negative for chills, fever and malaise/fatigue. Respiratory: Negative for cough, hemoptysis, sputum production and shortness of breath. Cardiovascular: Negative for chest pain, palpitations, orthopnea and PND. Gastrointestinal: Negative for abdominal pain, blood in stool, melena, nausea and vomiting. Genitourinary: Negative for hematuria. Skin: Negative for rash. Neurological: Negative for dizziness and loss of consciousness. PHYSICAL EXAMINATION: BP 147/86 Pulse 76 Ht 5' 4 (1.63m) Wt 132 lb (59.9kg) SpO2 100% BMI 22.65 kg/(m^2). Physical Exam Vitals reviewed. Constitutional: General: She is not in acute distress. Appearance: Normal appearance. HENT: Head: Normocephalic and atraumatic. Cardiovascular: Rate and Rhythm: Normal rate and regular rhythm. Heart sounds: Normal heart sounds, S1 normal and S2 normal. No murmur heard. No friction rub. Pulmonary: Effort: Pulmonary effort is normal. No respiratory distress. Breath sounds: Normal breath sounds. No wheezing, rhonchi or rales. Musculoskeletal: Cervical back: Neck supple. Right lower leg: No edema. Left lower leg: No edema. Skin: General: Skin is warm and dry. Neurological: General: No focal deficit present. Mental Status: She is alert and oriented to person, place, and time. Psychiatric: Mood and Affect: Mood normal. Behavior: Behavior normal. Thought Content: Thought content normal. CARDIOVASCULAR MEDICINE TESTING: Electrocardiogram: Sinus rhythm 69 bpm; normal conduction intervals (AL 168 ms, QRS 110 ms); QTc 435 ms; borderline voltage criteria for LVH; possible septal infarct pattern I have personally reviewed the Electrocardiogram. ASSESSMENT/PLAN: 1. Persistent atrial fibrillation (HCC) - ICD9: 427.31, ICD10: I48.19 (primary diagnosis) Symptomatic; previously on sotalol, but did not tolerate due to side effects; has done well since late 2021 with beta-liu therapy - ECG B/O W INTERP (MED OFFICE) 2. At risk for stroke - ICD9: V15.89, ICD10: Z91.89 [id number] = 2 (age, female gender). Patient denies having HTN anymore, states this condition resolved. So she no longer has [id number] score of 3. The two risk factors she has (age, female gender) are considered soft and this particular combination of risk factors is therefore considered intermediate risk --- much like a male patient with [id number] score of 1 (this is per recent updates to Practice Guidelines). 3. At risk for bleeding associated with anticoagulants - ICD9: V15.89, ICD10: Z91.89 See #4 4. Von Willebrand's disease - ICD9: 286.4, ICD10: D68.00 IMPRESSION: Ms. Calvillo was referred to discuss candidacy for Watchman left atrial appendage closure device. As outlined above, if she is correct that she is no longer considered to have hypertension, her [id number] score is 2 points, with that particular combination of age and female gender being considered intermediate, as opposed to a risk score of 2 involving a harder risk factor such as HTN or DM. The current FDA indication or labelling for Watchman requires [id number] score of 2 or higher, and perhaps more importantly the current National Coverage Determination (NCD) from CMS/Medicare requires a [id number] score of 3 or higher for the insurance coverage. Thus, she does not meet CMS/Medicare NCD guidelines. I had a detailed discussion with Ms. Calvillo regarding my evaluation and recommendations. After our discussion, Ms. Calvillo expressed her understanding and I answered all her questions to her apparent satisfaction. PLAN AND RECOMMENDATIONS: Presently Ms. Calvillo does not meet required criteria for Watchman left atrial appendage closure device per CMS/Medicare coverage guidelines. Sherley Ozuna MD 08/19/2022 Medical Decision Making: Problems: Moderate: New problem with uncertain prognosis Data: Unique source(s) for external note(s) reviewed: 3+ Unique test result(s) reviewed: 3+ Unique test(s) ordered: 1 Risk: Moderate: Moderate risk from testing/treatment, Drug management and Decision on minor surgery w/ risk factors Medical Decision Making Level: 4 - Moderate documented in this encounter [facility] 03-15-2022 Telephone encounter Note Faxed lab order into [facility] as requested and fax confirmation was received. [facility] 03-15-2022 Miscellaneous Notes Faxed lab order into [facility] lab as requested and fax confirmation was received. Patient's daughter called in and asked if most recent lab results could be interpreted and recommnedation from provider given. This nurse faxed lab results to Dr Hinkle for review. Patient's daughter also informed this nurse that patient has had progressive worsening exertional SOB thru out the week along with radiating chest pain at rest. The chest pain goes from chest into patient's back. Message sent to provider for review. documented in this encounter [facility] 03-14-2022 Telephone encounter Note Patient's daughter called in and asked if most recent lab results could be interpreted and recommnedation from provider given. This nurse faxed lab results to Dr Hinkle for review. Patient's daughter also informed this nurse that patient has had progressive worsening exertional SOB thru out the week along with radiating chest pain at rest. The chest pain goes from chest into patient's back. Message sent to provider for review. [facility] 03-08-2022 Telephone encounter Note This nurse faxed lab order to [facility] lab in [facility] per patient's and daughter's request. Fax confirmation received and patient and daughter aware that order has been faxed. [facility] 03-08-2022 Miscellaneous Notes This nurse faxed lab order to [facility] lab in [facility] per patient's and daughter's request. Fax confirmation received and patient and daughter aware that order has been faxed. documented in this encounter [facility] 03-04-2022 Instructions Carlos Guzmán MD - 03/04/2022 2:18 PM EDT Increase Metoprolol to 100 mg BID We have ordered blood work documented in this encounter [facility] 03-04-2022 History of Presen t illness Narrative Dear Dr. Osmin Sandoval MD [address] [place] [id number] Thank you for your referral of Ms. Tanya Calvillo to the [facility] on 03/04/2022 for evaluation of atrial fibrillation. ASSESSMENT In summary, Ms. Tanya Calvillo is a 71 y.o. female with 1. Symptomatic Persistent Atrial Fibrillation: First Dx 2017 following seizures. Resolved but then recurrence in October 2021. 100% burden by 7 day monitor. Not on anticoagulation due to vWB disease. 2. Von Willebrand disease with extensive hx of mucucutaneous bleeding. Bleeding episodes < 1 per month. Last transfusion was 1977. 3. Hypertension 4. Fibromyalgia 5. GERD PLAN 1. Increase metoprolol to 100 mg BID 2. Will discuss with Hematology if she is safe for anticoagulation for any duration of time 3. Following this discussion will refer to EP to see if DCCV/ablation/Watchman implantation are options 4. Will get records of echo so that we don't need to repeat here. 5. TSH Follow up in 3 months. Nadine Hinkle MD Waste Removalist, PGY-7 Attending Physician Note I saw and personally examined the patient on 03/04/2022 with the fellow in general cardiology clinic. We discussed the symptoms and exam findings, results of testing and therapeutic plan. I agree with the history, physical examination, and medical decisions as outlined in the progress note, and I have edited the note in its essential parts to reflect my plan for this patient. Increase beta liu. Start furosemide for dyspnea and elevated BNP. Discuss possibility of short term AC vs. DAPT with hematology. Obtain report of recent outside echocardiogram. Carlos Guzmán MD Airplane Navigator of Clinical Medicine [facility] [address], [address] [place] [address] [email or web address]___ HISTORY Prior history of afib in 2018 following what sounds like a hypoxic cardiac arrest. Hadn't had any since until October 2021 she was found to be in afib on exam by her primary doctor. Not started on AC due to vWB. Since that time she has noticed palpitations and worsening dyspnea on exertion. Occasional chest pain with exertion. Underwent nuclear stress test which was negative. Regarding vWB she has episodes of epistaxis about <1 per month. Last need for transfusion was 1977. MEDICAL/SOCIAL/FAMILY/ALLERGY/ME D HISTORY: Past medical, surgical, family, and social history reviewed in [facility]. Current Outpatient Medications Medication Sig acetaminophen 325 MG tablet Take 325 mg by mouth 2 times daily. Cholecalciferol (Vitamin D3) Liquid 1 mL by Unknown route daily. Pt unsure of concentration lamoTRIgine 25 MG tablet Take 25 mg by mouth 2 times daily. metoprolol 50 MG tab regular release Take by mouth. Multiple Vitamins-Minerals (MULTIVITAMIN WOMEN PO) Take 0.5 tablets by mouth daily. omeprazole [address] capsule Take 40 mg by mouth 2 times daily. POTASSIUM PO Take 20 mEq by mouth 2 times daily. The REVIEW OF SYSTEMS: 12 point ROS performed and negative unless otherwise noted in HPI. PHYSICAL EXAM BP 142/70 (BP Location: Right arm, BP Position: Sitting) Comment: left 140/70 Pulse 86 Temp 97.1 F (36.2 C) Resp 16 Ht 1.626 m (5' 4 ) Wt 60.1 kg (132 lb 6.4 oz) SpO2 98% BMI 22.73 kg/m Smoking Status Former Smoker Body surface area is 1.64 meters squared. General:Well-developed, well-nourished, not in acute distress. HEENT: no goiter, No xanthelasma. The carotid pulses are normal; no carotid bruits Heart: The PMI is non displaced; S1 and S2 are normal. Regular in rate and rhythm, no murmurs, rubs or gallops. Normal JVP. Extremeties: Warm, no pitting edema Lungs: clear to auscultation and percussion. Abdomen: soft,non tender, normal bowel sounds, Neuro: non-focal, normal speech, no facial asymmetry. MSK: no synovitis, Skin: no pathologic rash LABS AND TEST RESULTS No results found for: CHOLESTEROL, TRIG, HDL, LDLCALC, LDLDIRECT No results found for: HGBA1C ECG 02/21/22: Afib, cannot exclude septal infarct, LAFB Patient verified name and date of with this VICTIM[employer] ADVOCATE CLERK/SPECIALIST. documented in this encounter [facility] 02-21-2022 Note Formatting of this n ote might be different from the original. This RN went over discharge paperwork with the patient and her spouse. All questions and concerns were addressed. She did not have an IV to remove. She left with all of her belongings. She refused a wheelchair and was capable of walking out to the lobby with her spouse. [facility] 02-21-2022 Miscellaneous Notes This RN went over discharge paperwork with the patient and her spouse. All questions and concerns were addressed. She did not have an IV to remove. She left with all of her belongings. She refused a wheelchair and was capable of walking out to the lobby with her spouse. This patient was appropriately risk stratified for observation level of care and placed on an observation protocol in our Clinical Decision Unit. The patient's intensity of service and severity of illness was appropriately aligned with observation level of care. Medical Decision Making: She presents with epistaxis. She tripped and fell. She tripped over her dog. This was a mechanical fall and not due to instability. At this point she has no ongoing bleeding. Her symptoms are controlled. She had a negative CT at outside hospital. Will she has been monitored for several hours at this point with no recurrent bleeding. Anticipate discharge following final Hematology recommendations. Physical Exam: Physical Exam Vitals and nursing note reviewed. Constitutional: General: She is not in acute distress. Appearance: She is well-developed. She is not diaphoretic. HENT: Head: Normocephalic. Eyes: General: No scleral icterus. Right eye: No discharge. Left eye: No discharge. Cardiovascular: Rate and Rhythm: Regular rhythm. Pulmonary: Effort: Pulmonary effort is normal. No respiratory distress. Abdominal: General: There is no distension. Palpations: Abdomen is soft. Tenderness: There is no abdominal tenderness. Musculoskeletal: Cervical back: Normal range of motion and neck supple. Skin: General: Skin is warm and dry. Neurological: Mental Status: She is alert and oriented to person, place, and time. Disposition: Discharge The patient has met appropriate clinical criteria to be discharged from this CDU observation protocol. Reasons to return to the ED were discussed with the patient. The patient will be instructed to follow up with their primary care physician or specialist; if the patient does not have a physician to see in follow up, our CDU clinical database development project manager will assist the patient with their follow up needs. Clinical Impression: Epistaxis Prior medical records were reviewed. All pertinent labs and imaging results were reviewed and interpreted by me. The patient was updated regarding findings, and was re-assessed during ED stay. On 02/20/2022 I saw and evaluated the patient with ABHI. I provided a substantive portion of the care for this patient. I personally performed all aspects of the medical decision making for this encounter. I have reviewed and verified this with the ABHI so that it accurately reflects our care. txt to Cuca QUEZADA pt is in A-fib, she says she has a history of this, do not see it in our charting, no previous EKG to compare, takes metropolol though Plan cont monitor hr 74 Pt refusing IV insertion DEPARTMENT OF EMERGENCY MEDICINE CHIEF COMPLAINT Chief Complaint Patient presents with Epistaxis With bleeding disorder HISTORY OF PRESENT ILLNESS Tanya Calvillo is a 71 y.o. female was appropriately risk stratified for observation level of care and was placed on the [facility] Epistaxis protocol. Symptoms started with PMH arthritis, atrial fibrillation not on AC (on metoprolol BID), bronchitis, C. Difficile diarrhea, cervix abnormality, demyelinating, exposure to TB, HTN, fibromyalgia, GERD, h/o bladder infections, Hepatitis C, history of blood transfusion, IBS, measles, mumps, nasal bleeding, osteoarthritis, osteopenia, RA, seizures, Von Willebrand disease p/w epistaxis, yesterday morning, from right nare, lasted for about five minutes before resolving without intervention. Presented to the ED for further evaluation. Of note, patient hit her face on a door frame about five days ago after being pulled by her dog on a leash while going outside, fell down to hands and knees, no LOC, denies any other trauma or episodes of bleeding. Has had a mild headache and neck pain for the past two days. Lives in a house with her , uses a cane sometimes, no home health or home/outpatient services. Other than recently being pulled down by her dog recently, no other safety concerns or falls or close falls. Has outpatient follow-up with cardiology here on 03/04/22. Plan for observation for symptom management, cardiac monitoring, PT evaluation, routine hematology consult in a.m., reassessment. Personal, surgical, family, and social history reviewed with patient. REVIEW OF SYSTEMS Review of Systems Constitutional: Negative. Negative for chills, diaphoresis, fever, malaise/fatigue and weight loss. HENT: Positive for nosebleeds (Now resolved). Negative for congestion, ear discharge, ear pain, hearing loss, sinus pain, sore throat and tinnitus. Eyes: Negative. Negative for blurred vision, double vision, photophobia, pain, discharge and redness. Respiratory: Negative. Negative for cough, hemoptysis, sputum production, shortness of breath, wheezing and stridor. Cardiovascular: Negative. Negative for chest pain, palpitations, orthopnea, claudication, leg swelling and PND. Gastrointestinal: Positive for diarrhea (Chronic, unchanged). Negative for abdominal pain, blood in stool, constipation, heartburn, melena, nausea and vomiting. Genitourinary: Negative. Negative for dysuria, flank pain, frequency, hematuria and urgency. Musculoskeletal: Positive for falls and neck pain. Negative for back pain, joint pain and myalgias. Skin: Negative. Negative for itching and rash. Neurological: Positive for headaches. Negative for dizziness, tingling, tremors, sensory change, speech change, focal weakness, seizures, loss of consciousness and weakness. Endo/Heme/Allergies: Negative for environmental allergies and polydipsia. Bruises/bleeds easily. Psychiatric/Behavioral: Negative. Negative for depression. All Other Systems Were Reviewed And Negative Unless Otherwise Noted PAST MEDICAL HISTORY Past Medical History Reviewed, Contributory Findings Include: See below, no other endorsed PMH. Past Medical History: Diagnosis Date Arthritis 2002 Bronchitis C. 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 Past Surgical History: Procedure Laterality Date KNEE SURGERY 2006 Meniscus OPEN CHOLECYSTECTOMY 1988 BREAST BIOPSY 1974 HYSTERECTOMY MEDICATIONS GIVEN IN THE ED Medications - No data to display ALLERGIES Allergies Allergen Reactions Stimate [Desmopressin] Itching and Nausea Only Sulfa Antibiotics Itching and Nausea Only Codeine Nausea Only Morphine Nausea Only FAMILY HISTORY Family History Reviewed, Contributory Findings Include: See below, no other endorsed family history. Family History Problem Relation Age of Onset Other - Specify Mother Endometrial, ABO incompatibility Other - Specify Father ABO incompatibility Suicidal Father SOCIAL HISTORY Social History Reviewed, Contributory Findings Include: See below, no other endorsed social history. Social History Socioeconomic History Marital status: Spouse name: Not on file Number of children: Not on file Years of education: Not on file Highest education level: Not on file Occupational History Not on file Tobacco Use Smoking status: Former Smoker Packs/day: 2.00 Years: 30.00 Pack years: 60.00 Types: Cigarettes Quit date: 08/04/1991 Years since quittin.5 Smokeless tobacco: Never Used Substance and Sexual Activity Alcohol use: Not Currently Drug use: Never Sexual activity: Not on file Other Topics Concern Not on file Social History Narrative Not on file Social Determinants of Health Financial Resource Strain: Not on file Food Insecurity: Not on file Transportation Needs: Not on file Physical Activity: Not on file Stress: Not on file Social Connections: Not on file Intimate Partner Violence: Not on file Housing Stability: Not on file PHYSICAL EXAM BP (!) 163/103 Pulse 85 Temp 97.4 F (36.3 C) (Oral) Resp 20 Ht 1.626 m (5' 4 ) SpO2 99% BMI 22.97 kg/m Smoking Status Former Smoker Physical Exam Vitals and nursing note reviewed. Constitutional: General: She is not in acute distress. Appearance: She is well-developed. She is not diaphoretic. HENT: Head: Normocephalic. Contusion present. No abrasion, right periorbital erythema or left periorbital erythema. Jaw: There is normal jaw occlusion. No trismus, tenderness, swelling, pain on movement or malocclusion. Comments: Mild ecchymosis to bilateral eyes Right Ear: Hearing, tympanic membrane, ear canal and external ear normal. No hemotympanum. Left Ear: Hearing, tympanic membrane, ear canal and external ear normal. No hemotympanum. Nose: Nose normal. Right Nostril: No foreign body, epistaxis, septal hematoma or occlusion. Left Nostril: No foreign body, epistaxis, septal hematoma or occlusion. Mouth/Throat: Lips: [place]. Tongue: No lesions. Tongue does not deviate from midline. Pharynx: Oropharynx is clear. Uvula midline. No pharyngeal swelling, oropharyngeal exudate, posterior oropharyngeal erythema or uvula swelling. Eyes: General: No scleral icterus. Conjunctiva/sclera: Conjunctivae normal. Pupils: Pupils are equal, round, and reactive to light. Pupils are equal. Neck: Vascular: No JVD. Comments: TTP to bilateral lateral neck, no overlying erythema, edema, ecchymosis. Cardiovascular: Rate and Rhythm: Normal rate and regular rhythm. Heart sounds: Normal heart sounds. No murmur heard. No friction rub. No gallop. Pulmonary: Effort: Pulmonary effort is normal. No respiratory distress. Breath sounds: Normal breath sounds. No decreased breath sounds, wheezing, rhonchi or rales. Chest: Chest wall: No tenderness. Abdominal: General: There is no distension. Palpations: Abdomen is soft. There is no mass. Tenderness: There is no abdominal tenderness. There is no guarding or rebound. Musculoskeletal: General: Normal range of motion. Cervical back: Normal range of motion and neck supple. No torticollis. Muscular tenderness present. No pain with movement or spinous process tenderness. Normal range of motion. Skin: General: Skin is warm and dry. Neurological: Mental Status: She is alert and oriented to person, place, and time. Mental status is at baseline. Cranial Nerves: No cranial nerve deficit. Comments: All four extremities with intact motor and sensory function, full active and passive ROM without pain or difficulty. Psychiatric: Attention and Perception: Attention and perception normal. Mood and Affect: Mood and affect normal. Speech: Speech normal. Behavior: Behavior normal. Thought Content: Thought content normal. Judgment: Judgment normal. EDOU COURSE & MEDICAL DECISION MAKING Risk stratification appropriate for observation level of care. Patient was placed in EDOU on the Epistaxis protocol. Patient age greater than 64y/o? YES Geriatrics Screening: Delirium Triage Screen: (!) 1 Exclusion Criteria: Non-zero scores are abnormal. The above score does not (is unlikely to)represent acute delirium based on my assessment. Stage Balance Assessment Score: (!) 1 Exclusion Criteria: Non-zero scores are abnormal. The patient does need urgent physical and occupational therapy consultation or referral for fall risk assessment based on the above score and my assessment. PT evaluation ordered here. ISAR Score: (!) 2 Exclusion Criteria: Before the illness or injury that brought you to the Emergency Department, did you need someone to help you on a regular basis?: No In the last 24 hours, have you needed more help than usual?: Yes Have you been hospitalized for one or more nights during the past 6 months?: No In general, do you have serious problems with your vision, that cannot be corrected by glasses?: No In general, do you have serious problems with your memory?: Yes Do you take six or more different medications every day?: No Scores of 2 or higher should prompt consideration of case management consultation. The patient does need case management based on my assessment. The patient does not Geriatrics consultation or outpatient referral based on the above screening and my assessment. DDx includes: Epistaxis, coagulopathy, Von Willebrand disease, contusions, cervical strain vs sprain, DDD, cervical radiculopathy, tension headache, migraine headache, less likely TIA, CVA, ICH I reviewed the patients' medical records and nursing notes and noted their allergies, past medical history, and previous visits. The reviewed showed Results for orders placed or performed during the hospital encounter of 02/20/22 PT,INR,PTT Result Value Ref Range PT 13.4 11.9 - 14.2 sec INR 1.0 0.9 - 1.1 PTT 33.2 24.0 - 34.3 sec CBC AND ELECTRONIC DIFF Result Value Ref Range WBC Count 10.11 3.99 - 11.19 K/uL RBC Count 4.91 3.91 - 5.04 M/uL Hemoglobin 12.4 11.4 - 15.2 g/dL Hematocrit 40.0 34.9 - 44.3 % Mean Cell Volume 81.5 79.6 - 97.7 fL Mean Cell Hgb 25.3 (L) 25.9 - 33.9 pg Mean Cell Hgb Conc 31.0 (L) 31.4 - 35.9 g/dL RBC Distribution 18.3 (H) 10.8 - 14.9 % Platelet Count 325 150 - 393 K/uL Mean Platelet Volume 11.1 8.5 - 12.2 fL DIFF STATUS Electronic Differential Segs + Bands Auto 61.2 % Immature Grans % 1.6 % Lymphocyte % Auto 24.2 % Monocyte % Auto 10.2 % Eosinophil % Auto 2.1 % Basophil % Auto 0.7 % Nucleated RBC 0.0 <=0.2 /100 WBC Segs + Bands,Absolute Auto 6.19 1.64 - 7.28 K/uL Immature Grans Absolute 0.16 (H) <=0.08 K/uL Abs Lymph Auto 2.45 1.16 - 3.51 K/uL Abs Forest Auto 1.03 (H) 0.22 - 0.87 K/uL Abs Eos Auto 0.21 0.00 - 0.42 K/uL Abs Baso Auto 0.07 0.00 - 0.15 K/uL The patient received the following interventions in the ED to date: Labs, PO and IV analgesics and antiemetics PRN, home medications, pending continued symptom control overnight, cardiac monitoring, routine hematology consult, PT evaluation, reassessment by morning observation team. Further recommendations per consult services. If improved, likely home with close PCP follow-up. On reassessment the patient's response to the interventions was unchanged, vitals stable, afebrile, resting in bed, no focal neurologic deficits on exam, no signs of epistaxis. While in the EDOU we will continue to check, monitor and reassess patient and alter our plan as clinically appropriate. This is a non-shared visit on 02/21/2022. Electronically signed by: Cuca Valerio PA-C, 02/21/2022 2:46 AM documented in this encounter [facility] 02-21-2022 Note Acute Coronary Syndr ome (ACS): Initial Evaluation and Management: [email or web address] [facility] 02-21-2022 Note Formatting of this n ote might be different from the original. This patient was appropriately risk stratified for observation level of care and placed on an observation protocol in our Clinical Decision Unit. The patient's intensity of service and severity of illness was appropriately aligned with observation level of care. Medical Decision Making: She presents with epistaxis. She tripped and fell. She tripped over her dog. This was a mechanical fall and not due to instability. At this point she has no ongoing bleeding. Her symptoms are controlled. She had a negative CT at outside hospital. Will she has been monitored for several hours at this point with no recurrent bleeding. Anticipate discharge following final Hematology recommendations. Physical Exam: Physical Exam Vitals and nursing note reviewed. Constitutional: General: She is not in acute distress. Appearance: She is well-developed. She is not diaphoretic. HENT: Head: Normocephalic. Eyes: General: No scleral icterus. Right eye: No discharge. Left eye: No discharge. Cardiovascular: Rate and Rhythm: Regular rhythm. Pulmonary: Effort: Pulmonary effort is normal. No respiratory distress. Abdominal: General: There is no distension. Palpations: Abdomen is soft. Tenderness: There is no abdominal tenderness. Musculoskeletal: Cervical back: Normal range of motion and neck supple. Skin: General: Skin is warm and dry. Neurological: Mental Status: She is alert and oriented to person, place, and time. Disposition: Discharge The patient has met appropriate clinical criteria to be discharged from this CDU observation protocol. Reasons to return to the ED were discussed with the patient. The patient will be instructed to follow up with their primary care physician or specialist; if the patient does not have a physician to see in follow up, our CDU clinical database development project manager will assist the patient with their follow up needs. Clinical Impression: Epistaxis Prior medical records were reviewed. All pertinent labs and imaging results were reviewed and interpreted by me. The patient was updated regarding findings, and was re-assessed during ED stay. On 02/20/2022 I saw and evaluated the patient with ABHI. I provided a substantive portion of the care for this patient. I personally performed all aspects of the medical decision making for this encounter. I have reviewed and verified this with the ABHI so that it accurately reflects our care. [facility] Work Phone: 02-21-2022 History of Presen t illness Narrative Physical Therapy Attempt Note 02/21/2022 PT Therapy Completed: Screen PT order canceled due to no skilled needs at this time. Please re-consult as needed. Patti Su PT Time In: 08 Time Out: 0851 Total Visit Time: 0 minutes Total Treatment Time (skilled, billable minutes): 0 minutes Admission screening complete. No needs identified. Place CM consult order if needs arise RN CM will monitor for PT rec's PCP f/u added to AVS Place CM consult order if needs arise Addendum on 02/21/22 @ 1242 Physical Therapy Attempt Note 02/21/2022 PT Therapy Completed: Screen PT order canceled due to no skilled needs at this time. Please re-consult as needed. Analilia TABARES, RN Clinical Box Tender [phone] Available on secure chat. Weekend Box Tender and Social Work Contacts [facility]: CM: [phone] / SW: [phone] Munira: CM: [phone] / SW: [phone] Amando: CM: [phone] / SW [phone] Alvaro (PCU/MICU only): CM: [phone] / SW: [phone] documented in this encounter [facility] 02-21-2022 Consult note Associated Order (s): IP CONSULT TO HEMATOLOGY HEMATOLOGY CONSULT INITIAL EVALUATION IDENTIFICATION PATIENT: Tanya Calvillo ADMIT DATE: 02/20/2022 TIME OF EVALUATION: 02/21/2022 5:05 PM HOSPITAL STAY: LOS: 0 days CONSULTING SERVICE: [facility] REASON FOR CONSULTATION: epistaxis with Von Willebrand disease HISTORY OF PRESENT ILLNESS Tanya Calvillo is a 71 y.o. female with a PMH of HTN, seizures on lamotrigine, Afib (December 2021) not on anticoag, type 2N vWD who presented with traumatic epistaxis. Ms. Calvillo has had an extensive bleeding history. She has had breast biopsy, pregnancies complicated by bleeding that was controlled via packed RBC transfusion. She has had heavy menstrual bleeding requiring D&C and ultimately hysterectomy. Her cholecystectomy in 1987 was complicated with internal bleeding (according to pt) controlled with stimate (factor VIII increased by 40% on 1st dose and 20% on 2nd dose) and factor VIII. Bleeding from procedures (tubal ligation, dental extractions, after 1987 were controlled with cryoprecipitate. Outside of procedures, she has not required hospitalization or treatment for minor bleeding. Stimate has not been helpful in controlling her bleeding in the past. She had a workup for vWD in 2003 at the [facility] that indicated type 2N vWD. She had another workup with Dr. Bender on 01/03/2022 that was concerning for atypical Type 2N vWD. On 02/15, her dog pulled her causing her to hit nose on a door frame. Her nose started bleeding but she is not sure of how long she bled for. She presented to [facility] who did head imaging and checked labs. She was stable and not bleeding and was discharged to go home. On 02/20, she was leaning down and her nose started to bleed again for around 5 minutes. She came to [facility] to speak with a ground water technician. Since she has been at [facility], she has had no further bleeding. She denies any spontaneous bleeds or major bleeding from minor cuts. All bleeding episodes so far have been complications of menstruation, , or surgical/procedural interventions. She reports that her daughter also has Von Willebrand that is being controlled with Stimate. She is unaware of anyone else in the family with bleeding or clotting disorders (some family members have not been tested). PAST MEDICAL, SURGICAL, FAMILY, and SOCIAL HISTORY Past Medical History: Diagnosis Date Arthritis 2002 Bronchitis C. 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 Essential hypertension, benign [id number] Exposure to TB 1974 Fibromyalgia 2005 GERD (gastroesophageal reflux disease) H/O bladder infections Hepatitis C 2003 History of blood transfusion Irritable bowel syndrome 1989 Measles 1956 Mumps 1956 Nasal bleeding Osteoarthritis 2006 Osteoarthritis 2006 Osteopenia 2006 Post-nasal drip Rheumatoid arthritis 2011 Seizures Sleep concern 2008 idiopathic somnolence Tendency toward bleeding easily With surgery Von Willebrand disease [place] II Whooping cough 1956 Past Surgical History: Procedure Laterality Date KNEE SURGERY 2007 Meniscus OPEN CHOLECYSTECTOMY 1988 BREAST BIOPSY 1974 HYSTERECTOMY Family History Problem Relation Age of Onset Other - Specify Mother Endometrial, ABO incompatibility Other - Specify Father ABO incompatibility Suicidal Father Social History Socioeconomic History Marital status: Tobacco Use Smoking status: Former Smoker Packs/day: 2.00 Years: 30.00 Pack years: 60.00 Types: Cigarettes Quit date: 08/04/1991 Years since quittin.5 Smokeless tobacco: Never Used Substance and Sexual Activity Alcohol use: Not Currently Drug use: Never MEDICATIONS SCHEDULED: acetaminophen (TYLENOL) tablet 325 mg, 325 mg, BID lamoTRIgine (laMICtal) tablet 50 mg, 50 mg, Q12H metoprolol (LOPRESSOR) tablet 75 mg, 75 mg, Q12H multivitamin w/ minerals (THERAPEUTIC-M) tablet 1 tablet, 1 tablet, Daily pantoprazole (PROTONIX) tablet DR 40 mg, 40 mg, Q12H FLUIDS/DRIPS: PRNs: alum/mag hydrox.-simethicone, 30 mL, Q6H PRN Polyvinyl Alcohol-Povidone PF, 2 drop, 4x daily PRN ALLERGIES: She is allergic to stimate [desmopressin], sulfa antibiotics, codeine, and morphine. REVIEW OF SYSTEMS CONSTITUTIONAL: Fluctuating weight with unintentional weight loss and reduced appetite. Currently no change in appetite. No fever, chills SKIN: Bilateral LE bruising and cuts No rash, itching, ulcers. HENT: No congestion, rhinorrhea, or sore throat. EYES: No blurry or diminished vision. CARDIOVASCULAR: chest pain RESPIRATORY: No cough or shortness of breath. GASTROINTESTINAL: Diarrhea No nausea, vomiting, abdominal pain, constipation. GENITOURINARY: No dysuria, frequency, hesitancy, hematuria. MUSCULOSKELETAL: wrist and foot pain NEUROLOGICAL: seizures, dizziness PSYCHIATRIC: No depression, no anxiety. ALLERGY/IMMUNOLOGY: No history of environmental allergies or urticaria. ENDOCRINE: No polydipsia or polyuria, no cold/heat intolerance. HEME: has easy bruising and bleeding OBJECTIVE DATA Temp: [97.2 F (36.2 C)-98.2 F (36.8 C)] 97.6 F (36.4 C) Pulse (Heart Rate): [81-92] 81 Resp Rate: [16] 16 BP: (138-163)/(73-103) 138/79 O2 Sat (%): [96 %-100 %] 96 % Weight: [56.4 kg (124 lb 6.4 oz)] 56.4 kg (124 lb 6.4 oz) No intake/output data recorded. Oxygen Therapy: Oxygen Therapy O2 Sat (%): 96 % O2 Device: room air Oxygen Delivery/Consumption Hemodynamics BSA (Calculated - sq m): 1.6 m2 Physical Exam: Gen: NAD, A&Ox4, well appearing, responds appropriately HEENT: Facial bruising, face symmetric, EOMI, sclerae anicteric Resp: non-labored breathing, CTAB, no wheezes/crackles/rales CV: irregular heart rate, no murmurs/rubs/gallops GI: soft, non-tender, non-distended, NABS, no rebound or guarding Ext: warm and well perfused, pulses intact, no LE edema, no clubbing or cyanosis Skin: intact, facial and lower extremity bruising Neuro: A&Ox4, speech fluent, CN II-XII grossly intact Body mass index is 21.35 kg/m . LABS AND IMAGING CBC Lab Results Component Value Date WBC 10.11 02/20/2022 HGB 12.4 02/20/2022 HCT 40.0 02/20/2022 PLATELET 325 02/20/2022 MCV 81.5 02/20/2022 EDIF Lab Results Component Value Date RBCDISTRIBU 18.3 (H) 02/20/2022 GRNLOCYT 61.2 02/20/2022 LYMPHOCYT 24.2 02/20/2022 MONOCYTELEC 10.2 02/20/2022 EOSINOPHILS 2.1 02/20/2022 BASOPHILS 0.7 02/20/2022 LYMPHOCYTABS 2.45 02/20/2022 EOSINOPHLABS 0.21 02/20/2022 PLATELET 325 02/20/2022 MPV 11.1 02/20/2022 Last 3 Hemoglobin Lab Results Component Value Date HGB 12.4 02/20/2022 HGB 12.3 01/03/2022 Last 3 WBC Lab Results Component Value Date WBC 10.11 02/20/2022 WBC 10.65 01/03/2022 Last 3 Platelets Lab Results Component Value Date PLATELET 325 02/20/2022 PLATELET 311 01/03/2022 No results found for: RETIC, RETICABS Lab Results Component Value Date IRON 38 (L) 01/03/2022 FERRITIN 8.8 (L) 01/03/2022 No results found for: HAPTOGLOBIN Chemistry No results found for: ALT, TRANSFERASEA, AST, GGT, GAMMAGT, ALKPHOS, BILITOTAL, BILIDIRECT No results found for: LDH Coagulation Studies Lab Results Component Value Date PT 13.4 02/20/2022 PTT 31.8 02/21/2022 INR 1.0 02/20/2022 Lab Results Component Value Date FIBRINOGEN 266 01/03/2022 Other Labs Imaging No orders to display Pathology None ASSESSMENT AND RECOMMENDATIONS Tanya Calvillo is a 71 y.o. female with a PMH of HTN, seizures on lamotrigine, Afib (December 2021) not on anticoag, type 2N vWD who presents with traumatic epistaxis. Patient had a re-bleed yesterday but bleeding stopped spontaneously. Patient has had no bleeding in the past 24 hours. Hgb is stable at 12.4 with PT and PTT within normal limits. In the past, patient has not needed hospitalization for bleeding from minor injuries. There is little concern for major bleeding from this episode. Recommend Von Willebrand battery panel for future comparison if patient presents again with a rebleed. Advised patient to change head position slowly especially if bending down. In the case of recurrence of epistaxis, advised patient to apply pressure and to present to ED if bleeding doesn't stop within 15-20 minutes. Patient has outpatient Heme appointment with Dr. Bender in August 2022. RECOMMENDATIONS: - Von Willebrand battery panel (ordered) - advise patient to take caution when bending down - advise pt to apply pressure in the case of recurrence of bleeding and present to ED if bleeding doesn't stop within 15-20 minutes - follow up with Heme as outpatient in August - safe to discharge from Heme standpoint This consult was discussed with Dr. Newton, the attending physician. If you have any questions or need any further information, please feel free to contact the Hematology Consult Service. Our pager number is found under the heading IM Consult Serv Hematology on [employer]. Thank you for allowing us to participate in the care of Tanya Calvillo. Associated attestation - Whit Newton MD - 02/21/2022 11:27 PM EDT I saw and examined the patient 02/21/2022 with the resident/fellow. Labs, radiology, and other tests were reviewed. The plan was developed mutually and discussed with the team. The attached note has been reviewed. I directed the patient's consultation and agree with the recommendation as documented. Patient and/or family are aware of plan. Tanya Calvillo is a 71 y.o. 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 No bleeding x 24 hours without intervention. Hgb stable. No acute intervention. Will obtain VWF battery prior to discharge. Follow-up with Dr. Bender as scheduled. Whit Newton MD / [id number] [facility] 02-21-2022 Consult note Associated Order (s): IP CONSULT TO HEMATOLOGY HEMATOLOGY CONSULT INITIAL EVALUATION IDENTIFICATION PATIENT: Tanya Calvillo ADMIT DATE: 02/20/2022 TIME OF EVALUATION: 02/21/2022 5:05 PM HOSPITAL STAY: LOS: 0 days CONSULTING SERVICE: [facility] REASON FOR CONSULTATION: epistaxis with Von Willebrand disease HISTORY OF PRESENT ILLNESS Tanya Calvillo is a 71 y.o. female with a PMH of HTN, seizures on lamotrigine, Afib (December 2021) not on anticoag, type 2N vWD who presented with traumatic epistaxis. Ms. Calvillo has had an extensive bleeding history. She has had breast biopsy, pregnancies complicated by bleeding that was controlled via packed RBC transfusion. She has had heavy menstrual bleeding requiring D&C and ultimately hysterectomy. Her cholecystectomy in 1987 was complicated with internal bleeding (according to pt) controlled with stimate (factor VIII increased by 40% on 1st dose and 20% on 2nd dose) and factor VIII. Bleeding from procedures (tubal ligation, dental extractions, after 1987 were controlled with cryoprecipitate. Outside of procedures, she has not required hospitalization or treatment for minor bleeding. Stimate has not been helpful in controlling her bleeding in the past. She had a workup for vWD in 2003 at the [facility] that indicated type 2N vWD. She had another workup with Dr. Bender on 01/03/2022 that was concerning for atypical Type 2N vWD. On 02/15, her dog pulled her causing her to hit nose on a door frame. Her nose started bleeding but she is not sure of how long she bled for. She presented to OSH who did head imaging and checked labs. She was stable and not bleeding and was discharged to go home. On 02/20, she was leaning down and her nose started to bleed again for around 5 minutes. She came to [facility] to speak with a ground water technician. Since she has been at [facility], she has had no further bleeding. She denies any spontaneous bleeds or major bleeding from minor cuts. All bleeding episodes so far have been complications of menstruation, , or surgical/procedural interventions. She reports that her daughter also has Von Willebrand that is being controlled with Stimate. She is unaware of anyone else in the family with bleeding or clotting disorders (some family members have not been tested). PAST MEDICAL, SURGICAL, FAMILY, and SOCIAL HISTORY Past Medical History: Diagnosis Date Arthritis 2003 Bronchitis C. 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 Essential hypertension, benign [id number] Exposure to TB 1975 Fibromyalgia 2006 GERD (gastroesophageal reflux disease) H/O bladder infections Hepatitis C 2004 History of blood transfusion Irritable bowel syndrome 1989 Measles 1956 Mumps 1956 Nasal bleeding Osteoarthritis 2006 Osteoarthritis 2006 Osteopenia 2006 Post-nasal drip Rheumatoid arthritis 2012 Seizures Sleep concern 2009 idiopathic somnolence Tendency toward bleeding easily With surgery Von Willebrand disease [place] II Whooping cough 1956 Past Surgical History: Procedure Laterality Date KNEE SURGERY 2007 Meniscus OPEN CHOLECYSTECTOMY 1988 BREAST BIOPSY 1974 HYSTERECTOMY Family History Problem Relation Age of Onset Other - Specify Mother Endometrial, ABO incompatibility Other - Specify Father ABO incompatibility Suicidal Father Social History Socioeconomic History Marital status: Tobacco Use Smoking status: Former Smoker Packs/day: 2.00 Years: 30.00 Pack years: 60.00 Types: Cigarettes Quit date: 08/04/1991 Years since quittin.5 Smokeless tobacco: Never Used Substance and Sexual Activity Alcohol use: Not Currently Drug use: Never MEDICATIONS SCHEDULED: acetaminophen (TYLENOL) tablet 325 mg, 325 mg, BID lamoTRIgine (laMICtal) tablet 50 mg, 50 mg, Q12H metoprolol (LOPRESSOR) tablet 75 mg, 75 mg, Q12H multivitamin w/ minerals (THERAPEUTIC-M) tablet 1 tablet, 1 tablet, Daily pantoprazole (PROTONIX) tablet DR 40 mg, 40 mg, Q12H FLUIDS/DRIPS: PRNs: alum/mag hydrox.-simethicone, 30 mL, Q6H PRN Polyvinyl Alcohol-Povidone PF, 2 drop, 4x daily PRN ALLERGIES: She is allergic to stimate [desmopressin], sulfa antibiotics, codeine, and morphine. REVIEW OF SYSTEMS CONSTITUTIONAL: Fluctuating weight with unintentional weight loss and reduced appetite. Currently no change in appetite. No fever, chills SKIN: Bilateral LE bruising and cuts No rash, itching, ulcers. HENT: No congestion, rhinorrhea, or sore throat. EYES: No blurry or diminished vision. CARDIOVASCULAR: chest pain RESPIRATORY: No cough or shortness of breath. GASTROINTESTINAL: Diarrhea No nausea, vomiting, abdominal pain, constipation. GENITOURINARY: No dysuria, frequency, hesitancy, hematuria. MUSCULOSKELETAL: wrist and foot pain NEUROLOGICAL: seizures, dizziness PSYCHIATRIC: No depression, no anxiety. ALLERGY/IMMUNOLOGY: No history of environmental allergies or urticaria. ENDOCRINE: No polydipsia or polyuria, no cold/heat intolerance. HEME: has easy bruising and bleeding OBJECTIVE DATA Temp: [97.2 F (36.2 C)-98.2 F (36.8 C)] 97.6 F (36.4 C) Pulse (Heart Rate): [81-92] 81 Resp Rate: [16] 16 BP: (138-163)/(73-103) 138/79 O2 Sat (%): [96 %-100 %] 96 % Weight: [56.4 kg (124 lb 6.4 oz)] 56.4 kg (124 lb 6.4 oz) No intake/output data recorded. Oxygen Therapy: Oxygen Therapy O2 Sat (%): 96 % O2 Device: room air Oxygen Delivery/Consumption Hemodynamics BSA (Calculated - sq m): 1.6 m2 Physical Exam: Gen: NAD, A&Ox4, well appearing, responds appropriately HEENT: Facial bruising, face symmetric, EOMI, sclerae anicteric Resp: non-labored breathing, CTAB, no wheezes/crackles/rales CV: irregular heart rate, no murmurs/rubs/gallops GI: soft, non-tender, non-distended, NABS, no rebound or guarding Ext: warm and well perfused, pulses intact, no LE edema, no clubbing or cyanosis Skin: intact, facial and lower extremity bruising Neuro: A&Ox4, speech fluent, CN II-XII grossly intact Body mass index is 21.35 kg/m . LABS AND IMAGING CBC Lab Results Component Value Date WBC 10.11 02/20/2022 HGB 12.4 02/20/2022 HCT 40.0 02/20/2022 PLATELET 325 02/20/2022 MCV 81.5 02/20/2022 EDIF Lab Results Component Value Date RBCDISTRIBU 18.3 (H) 02/20/2022 GRNLOCYT 61.2 02/20/2022 LYMPHOCYT 24.2 02/20/2022 MONOCYTELEC 10.2 02/20/2022 EOSINOPHILS 2.1 02/20/2022 BASOPHILS 0.7 02/20/2022 LYMPHOCYTABS 2.45 02/20/2022 EOSINOPHLABS 0.21 02/20/2022 PLATELET 325 02/20/2022 MPV 11.1 02/20/2022 Last 3 Hemoglobin Lab Results Component Value Date HGB 12.4 02/20/2022 HGB 12.3 01/03/2022 Last 3 WBC Lab Results Component Value Date WBC 10.11 02/20/2022 WBC 10.65 01/03/2022 Last 3 Platelets Lab Results Component Value Date PLATELET 325 02/20/2022 PLATELET 311 01/03/2022 No results found for: RETIC, RETICABS Lab Results Component Value Date IRON 38 (L) 01/03/2022 FERRITIN 8.8 (L) 01/03/2022 No results found for: HAPTOGLOBIN Chemistry No results found for: ALT, TRANSFERASEA, AST, GGT, GAMMAGT, ALKPHOS, BILITOTAL, BILIDIRECT No results found for: LDH Coagulation Studies Lab Results Component Value Date PT 13.4 02/20/2022 PTT 31.8 02/21/2022 INR 1.0 02/20/2022 Lab Results Component Value Date FIBRINOGEN 266 01/03/2022 Other Labs Imaging No orders to display Pathology None ASSESSMENT AND RECOMMENDATIONS Tanya Cavlillo is a 71 y.o. female with a PMH of HTN, seizures on lamotrigine, Afib (December 2021) not on anticoag, type 2N vWD who presents with traumatic epistaxis. Patient had a re-bleed yesterday but bleeding stopped spontaneously. Patient has had no bleeding in the past 24 hours. Hgb is stable at 12.4 with PT and PTT within normal limits. In the past, patient has not needed hospitalization for bleeding from minor injuries. There is little concern for major bleeding from this episode. Recommend Von Willebrand battery panel for future comparison if patient presents again with a rebleed. Advised patient to change head position slowly especially if bending down. In the case of recurrence of epistaxis, advised patient to apply pressure and to present to ED if bleeding doesn't stop within 15-20 minutes. Patient has outpatient Heme appointment with Dr. Bender in August 2022. RECOMMENDATIONS: - Von Willebrand battery panel (ordered) - advise patient to take caution when bending down - advise pt to apply pressure in the case of recurrence of bleeding and present to ED if bleeding doesn't stop within 15-20 minutes - follow up with Heme as outpatient in August - safe to discharge from Heme standpoint This consult was discussed with Dr. Newton, the attending physician. If you have any questions or need any further information, please feel free to contact the Hematology Consult Service. Our pager number is found under the heading IM Consult Serv Hematology on [employer]. Thank you for allowing us to participate in the care of Tanya Calvillo. Associated attestation - Whit Newton MD - 02/21/2022 11:27 PM EDT I saw and examined the patient 02/21/2022 with the resident/fellow. Labs, radiology, and other tests were reviewed. The plan was developed mutually and discussed with the team. The attached note has been reviewed. I directed the patient's consultation and agree with the recommendation as documented. Patient and/or family are aware of plan. Tanya Calvillo is a 71 y.o. 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 No bleeding x 24 hours without intervention. Hgb stable. No acute intervention. Will obtain VWF battery prior to discharge. Follow-up with Dr. Bender as scheduled. Whit Newton MD / [id number] documented in this encounter [facility] 02-21-2022 Note Formatting of this n ote might be different from the original. txt to Cuca QUEZADA pt is in A-fib, she says she has a history of this, do not see it in our charting, no previous EKG to compare, takes metropolol though Plan cont monitor hr 74 [facility] 02-21-2022 Note Formatting of this n ote might be different from the original. Pt refusing IV insertion [facility] 02-21-2022 Note Formatting of this n ote is different from the original. DEPARTMENT OF EMERGENCY MEDICINE CHIEF COMPLAINT Chief Complaint Patient presents with Epistaxis With bleeding disorder HISTORY OF PRESENT ILLNESS Tanya Calvillo is a 71 y.o. female was appropriately risk stratified for observation level of care and was placed on the ED Epistaxis protocol. Symptoms started with PMH arthritis, atrial fibrillation not on AC (on metoprolol BID), bronchitis, C. Difficile diarrhea, cervix abnormality, demyelinating, exposure to TB, HTN, fibromyalgia, GERD, h/o bladder infections, Hepatitis C, history of blood transfusion, IBS, measles, mumps, nasal bleeding, osteoarthritis, osteopenia, RA, seizures, Von Willebrand disease p/w epistaxis, yesterday morning, from right nare, lasted for about five minutes before resolving without intervention. Presented to the ED for further evaluation. Of note, patient hit her face on a door frame about five days ago after being pulled by her dog on a leash while going outside, fell down to hands and knees, no LOC, denies any other trauma or episodes of bleeding. Has had a mild headache and neck pain for the past two days. Lives in a house with her , uses a cane sometimes, no home health or home/outpatient services. Other than recently being pulled down by her dog recently, no other safety concerns or falls or close falls. Has outpatient follow-up with cardiology here on 03/04/22. Plan for observation for symptom management, cardiac monitoring, PT evaluation, routine hematology consult in a.m., reassessment. Personal, surgical, family, and social history reviewed with patient. REVIEW OF SYSTEMS Review of Systems Constitutional: Negative. Negative for chills, diaphoresis, fever, malaise/fatigue and weight loss. HENT: Positive for nosebleeds (Now resolved). Negative for congestion, ear discharge, ear pain, hearing loss, sinus pain, sore throat and tinnitus. Eyes: Negative. Negative for blurred vision, double vision, photophobia, pain, discharge and redness. Respiratory: Negative. Negative for cough, hemoptysis, sputum production, shortness of breath, wheezing and stridor. Cardiovascular: Negative. Negative for chest pain, palpitations, orthopnea, claudication, leg swelling and PND. Gastrointestinal: Positive for diarrhea (Chronic, unchanged). Negative for abdominal pain, blood in stool, constipation, heartburn, melena, nausea and vomiting. Genitourinary: Negative. Negative for dysuria, flank pain, frequency, hematuria and urgency. Musculoskeletal: Positive for falls and neck pain. Negative for back pain, joint pain and myalgias. Skin: Negative. Negative for itching and rash. Neurological: Positive for headaches. Negative for dizziness, tingling, tremors, sensory change, speech change, focal weakness, seizures, loss of consciousness and weakness. Endo/Heme/Allergies: Negative for environmental allergies and polydipsia. Bruises/bleeds easily. Psychiatric/Behavioral: Negative. Negative for depression. All Other Systems Were Reviewed And Negative Unless Otherwise Noted PAST MEDICAL HISTORY Past Medical History Reviewed, Contributory Findings Include: See below, no other endorsed PMH. Past Medical History: Diagnosis Date Arthritis 2002 Bronchitis C. 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 Essential hypertension, benign [id number] Exposure to TB 1975 Fibromyalgia 2006 GERD (gastroesophageal reflux disease) H/O bladder infections Hepatitis C 2003 History of blood transfusion Irritable bowel syndrome 1989 Measles 1956 Mumps 1956 Nasal bleeding Osteoarthritis 2006 Osteoarthritis 2006 Osteopenia 2006 Post-nasal drip Rheumatoid arthritis 2011 Seizures Sleep concern 2008 idiopathic somnolence Tendency toward bleeding easily With surgery Von Willebrand disease [place] II Whooping cough 1956 SURGICAL HISTORY Past Surgical History Reviewed, Contributory Findings Include: See below, no other endorsed PSH. Past Surgical History: Procedure Laterality Date KNEE SURGERY 2006 Meniscus OPEN CHOLECYSTECTOMY 1988 BREAST BIOPSY 1974 HYSTERECTOMY MEDICATIONS GIVEN IN THE ED Medications - No data to display ALLERGIES Allergies Allergen Reactions Stimate [Desmopressin] Itching and Nausea Only Sulfa Antibiotics Itching and Nausea Only Codeine Nausea Only Morphine Nausea Only FAMILY HISTORY Family History Reviewed, Contributory Findings Include: See below, no other endorsed family history. Family History Problem Relation Age of Onset Other - Specify Mother Endometrial, ABO incompatibility Other - Specify Father ABO incompatibility Suicidal Father SOCIAL HISTORY Social History Reviewed, Contributory Findings Include: See below, no other endorsed social history. Social History Socioeconomic History Marital status: Spouse name: Not on file Number of children: Not on file Years of education: Not on file Highest education level: Not on file Occupational History Not on file Tobacco Use Smoking status: Former Smoker Packs/day: 2.00 Years: 30.00 Pack years: 60.00 Types: Cigarettes Quit date: 08/04/1991 Years since quittin.5 Smokeless tobacco: Never Used Substance and Sexual Activity Alcohol use: Not Currently Drug use: Never Sexual activity: Not on file Other Topics Concern Not on file Social History Narrative Not on file Social Determinants of Health Financial Resource Strain: Not on file Food Insecurity: Not on file Transportation Needs: Not on file Physical Activity: Not on file Stress: Not on file Social Connections: Not on file Intimate Partner Violence: Not on file Housing Stability: Not on file PHYSICAL EXAM BP (!) 163/103 Pulse 85 Temp 97.4 F (36.3 C) (Oral) Resp 20 Ht 1.626 m (5' 4 ) SpO2 99% BMI 22.97 kg/m Smoking Status Former Smoker Physical Exam Vitals and nursing note reviewed. Constitutional: General: She is not in acute distress. Appearance: She is well-developed. She is not diaphoretic. HENT: Head: Normocephalic. Contusion present. No abrasion, right periorbital erythema or left periorbital erythema. Jaw: There is normal jaw occlusion. No trismus, tenderness, swelling, pain on movement or malocclusion. Comments: Mild ecchymosis to bilateral eyes Right Ear: Hearing, tympanic membrane, ear canal and external ear normal. No hemotympanum. Left Ear: Hearing, tympanic membrane, ear canal and external ear normal. No hemotympanum. Nose: Nose normal. Right Nostril: No foreign body, epistaxis, septal hematoma or occlusion. Left Nostril: No foreign body, epistaxis, septal hematoma or occlusion. Mouth/Throat: Lips: [place]. Tongue: No lesions. Tongue does not deviate from midline. Pharynx: Oropharynx is clear. Uvula midline. No pharyngeal swelling, oropharyngeal exudate, posterior oropharyngeal erythema or uvula swelling. Eyes: General: No scleral icterus. Conjunctiva/sclera: Conjunctivae normal. Pupils: Pupils are equal, round, and reactive to light. Pupils are equal. Neck: Vascular: No JVD. Comments: TTP to bilateral lateral neck, no overlying erythema, edema, ecchymosis. Cardiovascular: Rate and Rhythm: Normal rate and regular rhythm. Heart sounds: Normal heart sounds. No murmur heard. No friction rub. No gallop. Pulmonary: Effort: Pulmonary effort is normal. No respiratory distress. Breath sounds: Normal breath sounds. No decreased breath sounds, wheezing, rhonchi or rales. Chest: Chest wall: No tenderness. Abdominal: General: There is no distension. Palpations: Abdomen is soft. There is no mass. Tenderness: There is no abdominal tenderness. There is no guarding or rebound. Musculoskeletal: General: Normal range of motion. Cervical back: Normal range of motion and neck supple. No torticollis. Muscular tenderness present. No pain with movement or spinous process tenderness. Normal range of motion. Skin: General: Skin is warm and dry. Neurological: Mental Status: She is alert and oriented to person, place, and time. Mental status is at baseline. Cranial Nerves: No cranial nerve deficit. Comments: All four extremities with intact motor and sensory function, full active and passive ROM without pain or difficulty. Psychiatric: Attention and Perception: Attention and perception normal. Mood and Affect: Mood and affect normal. Speech: Speech normal. Behavior: Behavior normal. Thought Content: Thought content normal. Judgment: Judgment normal. EDOU COURSE & MEDICAL DECISION MAKING Risk stratification appropriate for observation level of care. Patient was placed in EDOU on the Epistaxis protocol. Patient age greater than 64y/o? YES Geriatrics Screening: Delirium Triage Screen: (!) 1 Exclusion Criteria: Non-zero scores are abnormal. The above score does not (is unlikely to)represent acute delirium based on my assessment. Stage Balance Assessment Score: (!) 1 Exclusion Criteria: Non-zero scores are abnormal. The patient does need urgent physical and occupational therapy consultation or referral for fall risk assessment based on the above score and my assessment. PT evaluation ordered here. ISAR Score: (!) 2 Exclusion Criteria: Before the illness or injury that brought you to the Emergency Department, did you need someone to help you on a regular basis?: No In the last 24 hours, have you needed more help than usual?: Yes Have you been hospitalized for one or more nights during the past 6 months?: No In general, do you have serious problems with your vision, that cannot be corrected by glasses?: No In general, do you have serious problems with your memory?: Yes Do you take six or more different medications every day?: No Scores of 2 or higher should prompt consideration of case management consultation. The patient does need case management based on my assessment. The patient does not Geriatrics consultation or outpatient referral based on the above screening and my assessment. DDx includes: Epistaxis, coagulopathy, Von Willebrand disease, contusions, cervical strain vs sprain, DDD, cervical radiculopathy, tension headache, migraine headache, less likely TIA, CVA, ICH I reviewed the patients' medical records and nursing notes and noted their allergies, past medical history, and previous visits. The reviewed showed Results for orders placed or performed during the hospital encounter of 02/20/22 PT,INR,PTT Result Value Ref Range PT 13.4 11.9 - 14.2 sec INR 1.0 0.9 - 1.1 PTT 33.2 24.0 - 34.3 sec CBC AND ELECTRONIC DIFF Result Value Ref Range WBC Count 10.11 3.99 - 11.19 K/uL RBC Count 4.91 3.91 - 5.04 M/uL Hemoglobin 12.4 11.4 - 15.2 g/dL Hematocrit 40.0 34.9 - 44.3 % Mean Cell Volume 81.5 79.6 - 97.7 fL Mean Cell Hgb 25.3 (L) 25.9 - 33.9 pg Mean Cell Hgb Conc 31.0 (L) 31.4 - 35.9 g/dL RBC Distribution 18.3 (H) 10.8 - 14.9 % Platelet Count 325 150 - 393 K/uL Mean Platelet Volume 11.1 8.5 - 12.2 fL DIFF STATUS Electronic Differential Segs + Bands Auto 61.2 % Immature Grans % 1.6 % Lymphocyte % Auto 24.2 % Monocyte % Auto 10.2 % Eosinophil % Auto 2.1 % Basophil % Auto 0.7 % Nucleated RBC 0.0 <=0.2 /100 WBC Segs + Bands,Absolute Auto 6.19 1.64 - 7.28 K/uL Immature Grans Absolute 0.16 (H) <=0.08 K/uL Abs Lymph Auto 2.45 1.16 - 3.51 K/uL Abs [place] Auto 1.03 (H) 0.22 - 0.87 K/uL Abs Eos Auto 0.21 0.00 - 0.42 K/uL Abs Baso Auto 0.07 0.00 - 0.15 K/uL The patient received the following interventions in the ED to date: Labs, PO and IV analgesics and antiemetics PRN, home medications, pending continued symptom control overnight, cardiac monitoring, routine hematology consult, PT evaluation, reassessment by morning observation team. Further recommendations per consult services. If improved, likely home with close PCP follow-up. On reassessment the patient's response to the interventions was unchanged, vitals stable, afebrile, resting in bed, no focal neurologic deficits on exam, no signs of epistaxis. While in the EDOU we will continue to check, monitor and reassess patient and alter our plan as clinically appropriate. This is a non-shared visit on 02/21/2022. Electronically signed by: Cuca Valerio PA-C, 02/21/2022 2:[address] [facility] 02-20-2022 Physician Emergency department Note ED ATTENDING NOTE CC: Epistaxis (With bleeding disorder) HPI: Tanya Calvillo is a 71 y.o. female with a h/o HTN, GERD, IBS, osteoarthritis, RA, seizure, vWB, presents with epistaxis. Pt hit face against doorframe 6 days ago, had bilateral bruising, and nasal discharge at that time. Today with an epistaxis for 5 minutes from right nares. ROS Reviewed previous epistaxis and facial bruising and negative except as stated in the HPI Exam: Vital signs were reviewed. BP (!) 163/103 Pulse 85 Temp 97.4 F (36.3 C) (Oral) Resp 20 Ht 1.626 m (5' 4 ) SpO2 99% BMI 22.97 kg/m Smoking Status Former Smoker Alert, interactive, well-appearing, no acute distress. NC, bruising to the face, MAKAYLA, EOM intact, no epistaxis, no septal hematoma, mmm with no oral lesions, Neck supple, full ROM, no spinous ttp, RRR, no murmurs, No respiratory distress, lungs CTAB, Abdomen soft, NT, ND, no guarding, strength intact, no LE edema or acute deformities. ED Course and MDM: 71 y.o. female presents with epistaxis. DDx considered but not limited to epistaxis, facial fracture, septal hematoma, anemia, blood clotting disorder. Discussed with pt and spouse - had CT at OSH with no abnormalities noted, no ongoing leakage of fluids, no septal hematoma, will defer repeat CT. Labs reviewed - CBC and coags unremarkable. Pt hemodynamically stable, has had no nosebleed while awaiting evaluation, 18 hours, and no other sources of bleeding. Discussed with Heme, recommend observation overnight and would plan for evaluation with Heme team in the AM and possible transfusion, pt agreeable with plan. Impression/Plan: Epistaxis - resolved H/o Von Willebrand Disease - CDU On 02/20/2022 I saw and examined the patient. I discussed the history and examination with the resident and agree with the plan of care. This note was dictated using medical recognition software. Attempts were made to proof-read but errors may still occur. Andreae Vernon MD 02/21/[address] [facility] Work Phone: 02-20-2022 Emergency department Note ED ATTENDING NOTE CC: Epistaxis (With bleeding disorder) HPI: Tanya Calvillo is a 71 y.o. female with a h/o HTN, GERD, IBS, osteoarthritis, RA, seizure, vWB, presents with epistaxis. Pt hit face against doorframe 6 days ago, had bilateral bruising, and nasal discharge at that time. Today with an epistaxis for 5 minutes from right nares. ROS Reviewed previous epistaxis and facial bruising and negative except as stated in the HPI Exam: Vital signs were reviewed. BP (!) 163/103 Pulse 85 Temp 97.4 F (36.3 C) (Oral) Resp 20 Ht 1.626 m (5' 4 ) SpO2 99% BMI 22.97 kg/m Smoking Status Former Smoker Alert, interactive, well-appearing, no acute distress. NC, bruising to the face, MAKAYLA, EOM intact, no epistaxis, no septal hematoma, mmm with no oral lesions, Neck supple, full ROM, no spinous ttp, RRR, no murmurs, No respiratory distress, lungs CTAB, Abdomen soft, NT, ND, no guarding, strength intact, no LE edema or acute deformities. ED Course and MDM: 71 y.o. female presents with epistaxis. DDx considered but not limited to epistaxis, facial fracture, septal hematoma, anemia, blood clotting disorder. Discussed with pt and spouse - had CT at OSH with no abnormalities noted, no ongoing leakage of fluids, no septal hematoma, will defer repeat CT. Labs reviewed - CBC and coags unremarkable. Pt hemodynamically stable, has had no nosebleed while awaiting evaluation, 18 hours, and no other sources of bleeding. Discussed with Heme, recommend observation overnight and would plan for evaluation with Heme team in the AM and possible transfusion, pt agreeable with plan. Impression/Plan: Epistaxis - resolved H/o Von Willebrand Disease - CDU On 02/20/2022 I saw and examined the patient. I discussed the history and examination with the resident and agree with the plan of care. This note was dictated using medical recognition software. Attempts were made to proof-read but errors may still occur. Andreea Vernon MD 02/21/22 0417 dEPARTMENT of Emergency Medicine CHIEF COMPLAINT Epistaxis (With bleeding disorder) CHUCKIE Calvillo is a 71 y.o. female with a history of bleeding disorder (Von Willebrand Disease) and iron deficiency anemia d/t chronic blood loss who presents following five minute bleed from right nares. On Friday, five (5) days ago, the patient was pulled by her dog and struck her face onto the door frame. She denies any LOC or bleeding from any other site. She states she was initially noticing clear rhinorrhea but had a bleed today. She had no clear otorrhea or hemorrhea. She did not notice facial swelling. She does endorse intermittent dizziness and headache. She has a history of delayed bleeding. She is not on any anticoagulants. History of Afib but treated with metoprolol. REVIEW OF SYSTEMS Review of Systems Constitutional: Negative for activity change, appetite change and fever. HENT: Positive for nosebleeds and rhinorrhea. Negative for congestion, ear discharge, ear pain, facial swelling, hearing loss, mouth sores, postnasal drip, sinus pressure, sinus pain and tinnitus. Eyes: Negative. Respiratory: Negative. Cardiovascular: Negative. Gastrointestinal: Negative. Genitourinary: Negative. Musculoskeletal: Negative. Skin: Positive for color change. Allergic/Immunologic: Negative. Neurological: Positive for headaches. Hematological: Bruises/bleeds easily. Psychiatric/Behavioral: Negative. PAST MEDICAL HISTORY Past Medical History: Diagnosis Date Arthritis 2003 Bronchitis C. 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 Essential hypertension, benign [id number] Exposure to TB 1975 Fibromyalgia 2006 GERD (gastroesophageal reflux disease) H/O bladder infections Hepatitis C 2004 History of blood transfusion Irritable bowel syndrome 1989 Measles 1956 Mumps 1957 Nasal bleeding Osteoarthritis 2006 Osteoarthritis 2006 Osteopenia 2006 Post-nasal drip Rheumatoid arthritis 2012 Seizures Sleep concern 2009 idiopathic somnolence Tendency toward bleeding easily With surgery Von Willebrand disease [place] II Whooping cough 1956 SURGICAL HISTORY Past Surgical History: Procedure Laterality Date KNEE SURGERY 2007 Meniscus OPEN CHOLECYSTECTOMY 1988 BREAST BIOPSY 1974 HYSTERECTOMY CURRENT MEDICATIONS No current facility-administered medications for this encounter. Current Outpatient Medications Medication Sig Dispense Refill acetaminophen 325 MG tablet Take 325 mg by mouth 2 times daily. alendronate 10 MG tablet Take 10 mg by mouth daily. amantadine 100 MG capsule Cholecalciferol (Vitamin D3) Liquid 1 mL by Unknown route daily. Pt unsure of concentration Lacosamide (VIMPAT PO) Take by mouth 2 times daily. 5 mg in the morning and 7.5 mg at nighttime metoprolol 50 MG tab regular release Take by mouth. Multiple Vitamins-Minerals (MULTIVITAMIN WOMEN PO) Take 0.5 tablets by mouth daily. omeprazole [address] capsule Take 40 mg by mouth 2 times daily. POTASSIUM PO Take 20 mEq by mouth 2 times daily. ALLERGIES Allergies Allergen Reactions Stimate [Desmopressin] Itching and Nausea Only Sulfa Antibiotics Itching and Nausea Only Codeine Nausea Only Morphine Nausea Only FAMILY HISTORY Family History Problem Relation Age of Onset Other - Specify Mother Endometrial, ABO incompatibility Other - Specify Father ABO incompatibility Suicidal Father SOCIAL HISTORY Social History Socioeconomic History Marital status: Spouse name: Not on file Number of children: Not on file Years of education: Not on file Highest education level: Not on file Occupational History Not on file Tobacco Use Smoking status: Former Smoker Packs/day: 2.00 Years: 30.00 Pack years: 60.00 Types: Cigarettes Quit date: 08/04/1991 Years since quittin.5 Smokeless tobacco: Never Used Substance and Sexual Activity Alcohol use: Not Currently Drug use: Never Sexual activity: Not on file Other Topics Concern Not on file Social History Narrative Not on file Social Determinants of Health Financial Resource Strain: Not on file Food Insecurity: Not on file Transportation Needs: Not on file Physical Activity: Not on file Stress: Not on file Social Connections: Not on file Intimate Partner Violence: Not on file Housing Stability: Not on file PHYSICAL EXAM BP 144/83 Pulse 86 Temp 97.9 F (36.6 C) (Oral) Resp 20 Ht 1.626 m (5' 4 ) SpO2 100% BMI 22.97 kg/m Smoking Status Former Smoker Physical Exam Vitals and nursing note reviewed. Constitutional: General: She is awake. She is not in acute distress. Appearance: Normal appearance. She is well-developed and well-groomed. HENT: Head: Normocephalic. No laceration. Jaw: There is normal jaw occlusion. No tenderness or pain on movement. Comments: Ecchymosis bilaterally inferior to orbits. Ecchymosis on left nares. Right Ear: Hearing, tympanic membrane, ear canal and external ear normal. Left Ear: Hearing, ear canal and external ear normal. Ears: Comments: Scarred TM vs cerumen affixed to TM on left. No hemotympanum. Nose: Comments: Bruising on left nares. No deformity. No laceration. No clot or active bleed visualized in right nor left nares. Turbinates mildly swollen bilateral nares. No sinus tenderness. Mouth/Throat: Mouth: Mucous membranes are moist. No injury or lacerations. Dentition: Abnormal dentition. Dental caries present. Tongue: No lesions. Tongue does not deviate from midline. Pharynx: Oropharynx is clear. Uvula midline. Eyes: Extraocular Movements: Extraocular movements intact. Conjunctiva/sclera: Conjunctivae normal. Right eye: Right conjunctiva is not injected. Left eye: Left conjunctiva is not injected. Cardiovascular: Rate and Rhythm: Normal rate and regular rhythm. Pulmonary: Comments: CTAB. Breath sounds normal. No accessory muscle usage and no respiratory distress. Abdominal: General: Abdomen is flat. There is no distension. Palpations: Abdomen is soft. There is no hepatomegaly or splenomegaly. Tenderness: There is no abdominal tenderness. Musculoskeletal: Cervical back: No edema, rigidity or crepitus. No spinous process tenderness or muscular tenderness. Decreased range of motion (lateral rotation to left). Right lower leg: No edema. Left lower leg: No edema. Lymphadenopathy: Cervical: No cervical adenopathy. Neurological: Mental Status: She is alert and oriented to person, place, and time. GCS: GCS eye subscore is 4. GCS verbal subscore is 5. GCS motor subscore is 6. Cranial Nerves: No cranial nerve deficit or facial asymmetry. Psychiatric: Behavior: Behavior is cooperative. ED COURSE & MEDICAL DECISION MAKING Tanya Calvillo is a 71 year old female with history of delayed bleeding and Von Willebrand Disease presenting today for a 5 minute episode of epistaxis from right nares accompanied by ecchymosis below bilateral orbits, and reported clear rhinorrhea that has resolved. She is not currently bleeding and no clot could be visualized on visualization of anterior nares. Differential diagnosis includes: Epistaxis due to dislodged clot, posterior epistaxis, anterior epistaxis, basilar skull fracture. Her coagulation factors are all within normal limits. She is not currently anemic, and her clotting factors are all within normal limits. With concern for possible basilar skull fracture, a CT face w/o contrast will be performed and hematology consult for further recommendations. Natan Oliveira MD Resident 02/20/22 5442 Bed: C0 Expected date: Expected time: Means of arrival: Comments: triage Pt arrives with cc of fall on Friday after pt dog pulled her down. Pt states she fell on her knees and hands on concrete. Pt was seen at OSH Friday for this. Pt has hx of bleeding disorder. Pt endorses nose bleed that started back up today. Pt was told by the hematology department to be brought to the ED. Pt has significant bruising on face. documented in this encounter [facility] 02-20-2022 Physician Emergency department Note dEPARTMENT of Emergency Medicine CHIEF COMPLAINT Epistaxis (With bleeding disorder) HPI Tanya Calvillo is a 71 y.o. female with a history of bleeding disorder (Von Willebrand Disease) and iron deficiency anemia d/t chronic blood loss who presents following five minute bleed from right nares. On Friday, five (5) days ago, the patient was pulled by her dog and struck her face onto the door frame. She denies any LOC or bleeding from any other site. She states she was initially noticing clear rhinorrhea but had a bleed today. She had no clear otorrhea or hemorrhea. She did not notice facial swelling. She does endorse intermittent dizziness and headache. She has a history of delayed bleeding. She is not on any anticoagulants. History of Afib but treated with metoprolol. REVIEW OF SYSTEMS Review of Systems Constitutional: Negative for activity change, appetite change and fever. HENT: Positive for nosebleeds and rhinorrhea. Negative for congestion, ear discharge, ear pain, facial swelling, hearing loss, mouth sores, postnasal drip, sinus pressure, sinus pain and tinnitus. Eyes: Negative. Respiratory: Negative. Cardiovascular: Negative. Gastrointestinal: Negative. Genitourinary: Negative. Musculoskeletal: Negative. Skin: Positive for color change. Allergic/Immunologic: Negative. Neurological: Positive for headaches. Hematological: Bruises/bleeds easily. Psychiatric/Behavioral: Negative. PAST MEDICAL HISTORY Past Medical History: Diagnosis Date Arthritis 2002 Bronchitis C. 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 Essential hypertension, benign [id number] Exposure to TB 1975 Fibromyalgia 2006 GERD (gastroesophageal reflux disease) H/O bladder infections Hepatitis C 2004 History of blood transfusion Irritable bowel syndrome 1989 Measles 1956 Mumps 1956 Nasal bleeding Osteoarthritis 2006 Osteoarthritis 2006 Osteopenia 2006 Post-nasal drip Rheumatoid arthritis 2012 Seizures Sleep concern 2008 idiopathic somnolence Tendency toward bleeding easily With surgery Von Willebrand disease [place] II Whooping cough 1956 SURGICAL HISTORY Past Surgical History: Procedure Laterality Date KNEE SURGERY 2007 Meniscus OPEN CHOLECYSTECTOMY 1988 BREAST BIOPSY 1974 HYSTERECTOMY CURRENT MEDICATIONS No current facility-administered medications for this encounter. Current Outpatient Medications Medication Sig Dispense Refill acetaminophen 325 MG tablet Take 325 mg by mouth 2 times daily. alendronate 10 MG tablet Take 10 mg by mouth daily. amantadine 100 MG capsule Cholecalciferol (Vitamin D3) Liquid 1 mL by Unknown route daily. Pt unsure of concentration Lacosamide (VIMPAT PO) Take by mouth 2 times daily. 5 mg in the morning and 7.5 mg at nighttime metoprolol 50 MG tab regular release Take by mouth. Multiple Vitamins-Minerals (MULTIVITAMIN WOMEN PO) Take 0.5 tablets by mouth daily. omeprazole [address] capsule Take 40 mg by mouth 2 times daily. POTASSIUM PO Take 20 mEq by mouth 2 times daily. ALLERGIES Allergies Allergen Reactions Stimate [Desmopressin] Itching and Nausea Only Sulfa Antibiotics Itching and Nausea Only Codeine Nausea Only Morphine Nausea Only FAMILY HISTORY Family History Problem Relation Age of Onset Other - Specify Mother Endometrial, ABO incompatibility Other - Specify Father ABO incompatibility Suicidal Father SOCIAL HISTORY Social History Socioeconomic History Marital status: Spouse name: Not on file Number of children: Not on file Years of education: Not on file Highest education level: Not on file Occupational History Not on file Tobacco Use Smoking status: Former Smoker Packs/day: 2.00 Years: 30.00 Pack years: 60.00 Types: Cigarettes Quit date: 08/04/1991 Years since quittin.5 Smokeless tobacco: Never Used Substance and Sexual Activity Alcohol use: Not Currently Drug use: Never Sexual activity: Not on file Other Topics Concern Not on file Social History Narrative Not on file Social Determinants of Health Financial Resource Strain: Not on file Food Insecurity: Not on file Transportation Needs: Not on file Physical Activity: Not on file Stress: Not on file Social Connections: Not on file Intimate Partner Violence: Not on file Housing Stability: Not on file PHYSICAL EXAM BP 144/83 Pulse 86 Temp 97.9 F (36.6 C) (Oral) Resp 20 Ht 1.626 m (5' 4 ) SpO2 100% BMI 22.97 kg/m Smoking Status Former Smoker Physical Exam Vitals and nursing note reviewed. Constitutional: General: She is awake. She is not in acute distress. Appearance: Normal appearance. She is well-developed and well-groomed. HENT: Head: Normocephalic. No laceration. Jaw: There is normal jaw occlusion. No tenderness or pain on movement. Comments: Ecchymosis bilaterally inferior to orbits. Ecchymosis on left nares. Right Ear: Hearing, tympanic membrane, ear canal and external ear normal. Left Ear: Hearing, ear canal and external ear normal. Ears: Comments: Scarred TM vs cerumen affixed to TM on left. No hemotympanum. Nose: Comments: Bruising on left nares. No deformity. No laceration. No clot or active bleed visualized in right nor left nares. Turbinates mildly swollen bilateral nares. No sinus tenderness. Mouth/Throat: Mouth: Mucous membranes are moist. No injury or lacerations. Dentition: Abnormal dentition. Dental caries present. Tongue: No lesions. Tongue does not deviate from midline. Pharynx: Oropharynx is clear. Uvula midline. Eyes: Extraocular Movements: Extraocular movements intact. Conjunctiva/sclera: Conjunctivae normal. Right eye: Right conjunctiva is not injected. Left eye: Left conjunctiva is not injected. Cardiovascular: Rate and Rhythm: Normal rate and regular rhythm. Pulmonary: Comments: CTAB. Breath sounds normal. No accessory muscle usage and no respiratory distress. Abdominal: General: Abdomen is flat. There is no distension. Palpations: Abdomen is soft. There is no hepatomegaly or splenomegaly. Tenderness: There is no abdominal tenderness. Musculoskeletal: Cervical back: No edema, rigidity or crepitus. No spinous process tenderness or muscular tenderness. Decreased range of motion (lateral rotation to left). Right lower leg: No edema. Left lower leg: No edema. Lymphadenopathy: Cervical: No cervical adenopathy. Neurological: Mental Status: She is alert and oriented to person, place, and time. GCS: GCS eye subscore is 4. GCS verbal subscore is 5. GCS motor subscore is 6. Cranial Nerves: No cranial nerve deficit or facial asymmetry. Psychiatric: Behavior: Behavior is cooperative. ED COURSE & MEDICAL DECISION MAKING Tanya Calvillo is a 71 year old female with history of delayed bleeding and Von Willebrand Disease presenting today for a 5 minute episode of epistaxis from right nares accompanied by ecchymosis below bilateral orbits, and reported clear rhinorrhea that has resolved. She is not currently bleeding and no clot could be visualized on visualization of anterior nares. Differential diagnosis includes: Epistaxis due to dislodged clot, posterior epistaxis, anterior epistaxis, basilar skull fracture. Her coagulation factors are all within normal limits. She is not currently anemic, and her clotting factors are all within normal limits. With concern for possible basilar skull fracture, a CT face w/o contrast will be performed and hematology consult for further recommendations. Natan Oliveira MD Resident 02/20/[address] [facility] Work Phone: 02-20-2022 Emergency department Note Bed: 83 Expected date: Expected time: Means of arrival: Comments: triage [facility] 02-20-2022 Emergency department Note Pt arrives with cc of fall on Friday after pt dog pulled her down. Pt states she fell on her knees and hands on concrete. Pt was seen at OSH Friday for this. Pt has hx of bleeding disorder. Pt endorses nose bleed that started back up today. Pt was told by the hematology department to be brought to the ED. Pt has significant bruising on face. [facility] 02-14-2022 History of Presen t illness Narrative Pt arrived for infed 1350-Patient completed treatment and aware of next appointment documented in this encounter [facility] 01-03-2022 Instructions Nazia Sands RN - 01/03/2022 2:06 PM EDT RTO 1 year FRIDAY AV [facility] Nurses: Pj IMPORTANT: SURGICAL CLEARANCE! We MUST receive 2 WEEKS notice prior to any dental procedures, births, surgeries, and other procedures for Hematology clearance from our office. If you have not been seen by our office in over a year we cannot legally provide clearance. Failure to provide sufficient notice of at least two weeks prior may result in your surgery or procedure being delayed. Don't wait, communicate!! Call [phone] and let our office know about what the procedure is for and where to send the clearance to as soon as you are aware. Thank you!!! Medication refills Please allow 1 week for all medication refills. You may request refills via [employer] or by calling [phone]. Paperwork Please allow 2 weeks to complete disability, FMLA, and insurance paperwork. Please clarify what to do once they are completed, including any fax numbers or addresses needed. [facility] Original is a secure way to get access to your labs online. Once you're online, you may need to send a message to the office to release results so that you can review the results of your blood tests. For non-emergent concerns, please send us a [employer] message but describe your issue fully. As an example, tell us how long you've had the symptom, what makes it better or worse, what you've done for it already) and one of our nurses or nurse practitioners will respond candice. For questions or concerns regarding [employer] access or technical dificulties, please call [phone] or toll free at . Appointment's/ No show visits If you arrive late to your scheduled appointment, you may be asked to reschedule your visit. Please call [phone] at least 24 hours in advance if you are not able to make it to your scheduled visit. If you have three no show visit's within one year, you will be discharged from our practice. documented in this encounter [facility] 01-03-2022 History of Presen t illness Narrative Hematology Clinic Hemostasis and Thrombosis ID: 71 yo F with von Willebrand Type 2N and atrial fibrillation not on anticoagulation/antiplatelet therapy. Patient with extensive history of severe mucocutaneous bleeding characterized by immediate and delay bleeding. DISEASE HISTORY: 1. Type 2N Von Willebrand Disease -History: Prolonged bleeding after first delivery (1969), diagnosed as vascular bleeder vs. von Willebrand disease (documented on paper from 1969's that patient carries) -Blood Type: O -ISTH-BAT: 14 (01/2022) -Bleeding history: *Epistaxis (-), Bleeding oral hygiene: Brushing (-), Flossing (-). Bleeding on minor dental procedures/dentist comments in regards of bleeding (+) *Easy Bruising (+) >5 and >1cm, spontaneous 70%, Bleeding minor wounds (+) <10 minutes *Surgeries/Procedures: -Breast Biposy (20s) --> Bled up ot 6 months (controlled after multiple blood products, unclear) -Tooth extraction () --> Complicated with bleeding (unclear management) -Tubal ligation (1978) --> Complicated with bleeding (unclear management) -Cholecystectomy (1987) s/p Factor VIII. No bleeding -Hysterectomy (1987) s/p cryoprecipitate (no bleeding) -Right Knee Arthroscopy (2006) s/p cryoprecipitate (no bleeding) -Dental extraction (2014) --> s/p cryoprecipitate (no bleeding) *Obstetrics/Gynecology -Menarche at age 13 (14 day ,heavy 10 days, changing pads every 2H). Improved while on OCPs (before pregnancies). Worsened in between pregnancies and progressively after last and required hysterectomy. Chronic history of GIL w/ multiple courses of oral iron replacement. -Post bleeding () --> up to 6 months, recalls requiring D&C at some point and also complicated with rebleeing (controlled on packing) -Post bleeding (1978) --> Required immediate D&C and packing with recurrent bleeding up to 6 month (was readmitted at 4 month esperanza for bleeding). *Blood Products: At least 4 units or PRBCs (presumed used during ) + Cryoprecypitate. Suspected that contracted Hep C via this mechanism. *DDAVP challenge: Previous notes state failure to DAVP (unclear details/times, apparently FVIII only improved up to 40% in one opportunity and to 20% in another opportunity) *Family History: Daugther with bleeding disorder (presumed type 1 VWD) *Medication: States previous use of IN DDAVP (apparently in 2002 developed hyponatremia related to its use). Patient also states no response to DDAVP *Workup: -2000 (as per notes) --> vWg=44, Abnormal PFA-100, Bleeding Time=3.5 seconds, FVIII=12-32% -2003 (as per notes) --> FVIII=32%, uAEu=601%, Ristocetin=83%. Normal Multimer. Abnormal PFA-100. -2003 (CC) --> rOPa=671, Sfldmoxhhi=031, FVIII=37%. Normal PT and Prolonged PTT=36 (Ref<34). Normal Multimer. At [facility]: 2N Binding <6 (Normal >70%) in the setting of FVIII=26%, bXLy=584 -2019: Normal PT and PTT, normal Fibrinogen. FVIII=23%, oMBz=925, vWActivity=94% 2. Atrial Fibrillation (2018), unclear, on betablocker terapy 3. Hepatitis C, treated with IFN and ribavirin (2004) 4. Psoriatic Arthritis (2017), preciously on etanercept and MTX 5. Unclear seizure disorder (2015) vs. Idiopathic somnolence, off medication. 6. HTN 7. COPD by PFTs (2013) INTERVAL HISTORY: - Past Medical History: Diagnosis Date Arthritis 2002 Bronchitis C. 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 Essential hypertension, benign [id number] Exposure to TB 1975 Fibromyalgia 2006 GERD (gastroesophageal reflux disease) H/O bladder infections Hepatitis C 2003 History of blood transfusion Irritable bowel syndrome 1989 Measles 1956 Mumps 1956 Nasal bleeding Osteoarthritis 2006 Osteoarthritis 2006 Osteopenia 2006 Post-nasal drip Rheumatoid arthritis 2011 Seizures Sleep concern 2009 idiopathic somnolence Tendency toward bleeding easily With surgery Von Willebrand disease [place] II Whooping cough 1956 Past Surgical History: Procedure Laterality Date KNEE SURGERY 2007 Meniscus OPEN CHOLECYSTECTOMY 1988 BREAST BIOPSY 1974 HYSTERECTOMY Family History Problem Relation Age of Onset Other - Specify Mother Endometrial, ABO incompatibility Other - Specify Father ABO incompatibility Suicidal Father Social History Tobacco Use Smoking status: Former Smoker Packs/day: 2.00 Years: 30.00 Pack years: 60.00 Types: Cigarettes Quit date: 08/04/1991 Years since quittin.4 Smokeless tobacco: Never Used Substance Use Topics Alcohol use: Not Currently Drug use: Never Review of Systems Constitutional: Negative. HENT: Negative. Eyes: Negative. Cardiovascular: Negative. Respiratory: Negative. Endocrine: Negative. Hematologic/Lymphatic: Negative. Skin: Negative. Musculoskeletal: Negative. Gastrointestinal: Negative. Genitourinary: Negative. Neurological: Negative. Psychiatric/Behavioral: Negative. Allergic/Immunologic: Negative. Outpatient Medications Prior to Visit Medication Sig Dispense Refill acetaminophen 325 MG tablet Take 325 mg by mouth 2 times daily. alendronate 10 MG tablet Take 10 mg by mouth daily. amantadine 100 MG capsule Cholecalciferol (Vitamin D3) Liquid 1 mL by Unknown route daily. Pt unsure of concentration Lacosamide (VIMPAT PO) Take by mouth 2 times daily. 5 mg in the morning and 7.5 mg at nighttime metoprolol 50 MG tab regular release Take by mouth. Multiple Vitamins-Minerals (MULTIVITAMIN WOMEN PO) Take 0.5 tablets by mouth daily. omeprazole [address] capsule Take 40 mg by mouth 2 times daily. POTASSIUM PO Take 20 mEq by mouth 2 times daily. No facility-administered medications prior to visit. PHYSICAL EXAM: Vitals: 01/03/22 1420 BP: 131/67 Pulse: 75 Resp: 16 Temp: 97.5 degrees F (36.4 degrees C) TempSrc: Oral SpO2: 100% Weight: 61.3 kg (135 lb 3.2 oz) Physical Exam Constitutional: Appearance: Normal appearance. HENT: Head: Atraumatic. Eyes: Extraocular Movements: Extraocular movements intact. Cardiovascular: Rate and Rhythm: Normal rate and regular rhythm. Pulses: Normal pulses. Heart sounds: Normal heart sounds. Pulmonary: Breath sounds: Normal breath sounds. Abdominal: Palpations: Abdomen is soft. Musculoskeletal: General: Deformity present. Cervical back: Normal range of motion. Neurological: Mental Status: She is oriented to person, place, and time. Psychiatric: Behavior: Behavior normal. ASSESSMENT AND PLAN: 71 yo F with von Willebrand Type 2N and atrial fibrillation not on anticoagulation/antiplatelet therapy. Patient with extensive history of severe mucocutaneous bleeding characterized by immediate and delay bleeding. Patient has historically normal/elevated levels of von willebrand antigen and activity and at non-discordant levels as well as normal multimer analysis. This pattern is not classical for Type 2 Disorders (specifically for the non-discordant ratio as Type 2N and 2M have normal multimer analysis). Type 2N disease occurs as homozygous 2N genes (most commonly T791M and R854Q) and classically this patients have normal antigen/activity levels and low factor VIII levels. In this form the defect is more related to the factor VIII deficiency. Another pattern (most common in the [place]) is a heterozygous compound in between vWD 2N allele and vWD type 1 allele (this patterns tends to have lower FVIII as well as low activity and antigen). We only have documentation (as per notes) of one time low antigen level by 2000, afterwards all are at hemostatic level (could be due to normalization/increased induced by age). At this point is unclear why patient has this pattern and clarifying mutations may be beneficial to understand her disease as well as to characterize better her daughter's. At this point, will cover patient as needed with rFVIII products as seems to be where major defect is and as has essentially normal vWD levels. Recommendations: 1. CBC + Iron panel/Ferritin + ABO 2. Von Willebrand panel + Multimer analysis + PFA +FXI (as was reported low remotely) 3. HIV + HepB panel (never checked and has remote history of transfusions) 4. Referral to cardiology to evaluate Atrial fibrillation, appears to be symptomatic from it and may have a relative contraindication for full anticoagulation. 5. Strongly considering von Willebrand Disease, VWF Gene, Next-Generation Sequencing, Varies Panel from [facility] (code: [email or web address]), as presumable has more a non-classical type 2N disease. Osmin Sandoval MD Hematology, Hemostasis and Thrombosis Worker met with pt for comprehensive clinic visit. Pt was in attendance with her daughter, also a pt here today for comprehensive clinic visit. Pt lives with her daughter. Worker discussed local bleeding disorder chapter upcoming events. She is interested in a MedicAlert. Worker noted her preferred ID style and size and will submit order form following confirmation of bleeding Dx. No additional needs reported. documented in this encounter [facility] Diagnosis Iron deficiency anemia due to chronic blood loss- Primary Iron deficiency anemia secondary to blood loss (chronic) [facility] Diagnosis Epistaxis Hx of von Willebrand's disease Personal history of diseases of blood and blood-forming organs [facility] Diagnosis Persistent atrial fibrillation- Primary Atrial fibrillation Von Willebrand disease Von Willebrand's disease Essential hypertension, benign Dyspnea, unspecified type Dyspnea on exertion- Primary Other dyspnea and respiratory abnormality [facility] Diagnosis Persistent atrial fibrillation (HCC)- Primary Atrial fibrillation At risk for stroke Other specified personal history presenting hazards to health At risk for bleeding associated with anticoagulants Von Willebrand's disease documented in this encounter [facility] Discharge instructions* Attachments The following attachments cannot be sent through Care Everywhere. * Nosebleeds (Cymro) [facility] (n[facility]ative)* Consultation (Routine) - New Request Specialty Diagnoses / Procedures Referred By Contac t Referred To Contact Cardiovascular Medicine Diagnoses Hemorrhagic diathesis Osmin Dumont MD [address] [place] [address] Referral ID Status Reason Start Date Expiration Date V isits Requested Visits Authorized [id number] New Request 01/29/2022 02/23/2023 1 1 Scheduling Instructions Please schedule this patient in the Department of Cardiology. [facility] Reason for Referral Specialty Diagnoses / Procedures Referred By Contac t Referred To Contact Procedures ECG Alanna Ramirez APRN-MEDICAL OFFICE ADMINISTRATOR [address] [place] [address] Referral ID Status Reason Start Date Expiration Date V isits Requested Visits Authorized [id number] New Request 02/21/2022 03/18/2023 1 1 Summary Purpose Family History No Family History Records FoundNo Family History Records FoundNo Family History Records Found Advance Directives No Advanced Directives Records FoundNo Advanced Directives Records FoundNo Advanced Directives Records Found Additional Source Comments Reason for Visit (unrecogniz ed section and content) Specialty Diagnoses / Procedures Referred By Contac t Referred To Contact Hematology Diagnoses aquired hemophilia Procedures [facility] Nilay Sebastian MB/CHB [address] [place] [address] Samuel Akins MD [address] [place] [address] Referral ID Status Reason Start Date Expiration Date Visits Re quested Visits Authorized [id number] Closed 11/05/2019 11/29/2020 1 1 Reason Comments Infusion Visit infed Reason Comments Epistaxis With bleeding disord er Specialty Diagnoses / Procedures Referred By Contac t Referred To Contact Mary Levi, DO [address] [address] [place] [address] [facility] [address] [place] [address] Referral ID Status Reason Start Date Expiration Date Visits Re quested Visits Authorized [id number] 1 1 Reason Comments New Patient Chest pain comes and goes and back of head hurt Specialty Diagnoses / Procedures Referred By Contac t Referred To Contact Cardiovascular Medicine Diagnoses Hemorrhagic diathesis Osmin Dumont MD [address] [place] [address] Referral ID Status Reason Start Date Expiration Date V isits Requested Visits Authorized [id number] New Request 01/29/2022 02/23/2023 1 1 Reason Onset Date Comments Orders 03/08/2022 Chem 6 Reason Onset Date Comments Results 03/14/2022 Labs and advice Reason Comments CARD New Patient Consult Care Teams (unrecognized sec tion and content) Real Time Analyst Relationship Specialty Start Date End Date Haroon Patel MD [address] [place] [address] PCP - General Family Medicine 11/04/19 Nilay Sebastian MB/CHB [address] [facility] [place] [address] Vp Revenue Cycle Hematology 09/25/21 Real Time Analyst Relationship Specialty Start Date End Date Haroon Patel MD [address] [place] [address] PCP - General Family Medicine 11/04/19 Nilay Sebastian MB/CHB [address] [facility] [place] [address] Vp Revenue Cycle Hematology 09/25/21 Real Time Analyst Relationship Specialty Start Date End Date Haroon Patel MD [address] [place] [address] PCP - General Family Medicine 11/04/19 Nilay Sebastian MB/CHB [address] [place] [address] Vp Revenue Cycle Hematology 09/25/21 Real Time Analyst Relationship Specialty Start Date End Date Haroon Patel MD [address] [place] [address] PCP - General Family Medicine 11/04/19 Nilay Sebastian MB/CHB [address] [place] [address] Vp Revenue Cycle Hematology 09/25/21 Real Time Analyst Relationship Specialty Start Date End Date Haroon Patel MD [address] [place] [address] PCP - General Family Medicine 11/04/19 Nilay Sebastian MB/CHB [address] [place] [address] Vp Revenue Cycle Hematology 09/25/21 Real Time Analyst Relationship Specialty Start Date End Date Haroon Patel MD [address] [place] [address] PCP - General Family Medicine 03/14/11 Edy Mcneil [address] [facility] [place] [id number] Specialty Assistant Product Manager Cardiology 08/19/22 Scheduled Active and Recently Administ ered Medications (unrecognized section and content) PRN Medication Order 02/19/2022 02/20/2022 02/21/2022 alum/mag hydrox.-simethicone oral suspension 30 mL 30 mL, Oral, EVERY 6 HOURS NEEDED, Starting on Ida 02/21/22 at 0311, Until Ida 02/21/22 at 1816, Indigestion, Per 5 mL is equivalent to: (Alum-Mag Hydroxide 200-225 mg and Simethicone 20 mg) and (Alum-Mag Hydroxide 200-200 mg and Simethicone 20 mg) Polyvinyl Alcohol-Povidone PF (REFRESH) ophthalmic solution 2 drop 2 drop, Both Eyes, 4 TIMES DAILY NEEDED, Starting on Ida 02/21/22 at 0314, Until Ida 02/21/22 at 1816, Dry Eyes, Patient may self-administer. INFORMATION SOURCE (unrecogn ized section and content) DATE CREATED AUTHOR AUTHOR'S ORGANIZ ATION 01/14/2023 [facility] DATE CREATED AUTHOR AUTHOR'S ORGANIZ ATION 01/14/2023 [facility] Source Comments (unrecognize d section and content) In the event this informatio n is protected by the Federal Confidentiality of Alcohol and Drug Abuse Patient Records regulations: The Federal rules restrict any use of the information to criminally investigate or prosecute any alcohol or drug abuse patient.[facility] FOR RECORDS PERTAINING TO PATIENTS WHO ARE OR HAVE BEEN ENROLLED IN A CHEMICAL DEPENDENCY/SUBSTANCEABUSE PROGRAM, SOME INFORMATION MAY BE OMITTED. This clinical summary was aggregated from multiple sources. Caution should be exercised in using it in the provision of clinical care. This summary normalizes information from multiple sources, and as a consequence, information in this document may materially change the coding, format and clinical context of patient data. In addition, data may be omitted in some cases. CLINICAL DECISIONS SHOULD BE BASED ON THE PRIMARY CLINICAL RECORDS. [facility]. provides no warranty or guarantee of the accuracy or completeness of information in this document.
[2023-10-06 04:06] LABS: Pancreatic Elastase, Fecal 431 (>200)
== END | disposition home or self-care (01) ==
PROVIDERS: PCP Family Medicine; Referring Provider Family Medicine; Visit Provider Family Medicine
DX: K58.9 Irritable bowel syndrome, unspecified (principal)
CPT/HCPCS: 82274; 82653

== ENCOUNTER → 2024-03-01 | Outpatient (CLI) | payer MEDICARE, OTHER, SELFPAY ==
[2024-03-01 14:52] LABS: Absolute Lymphocyte Count 2.23 X10^3/uL (0.83-4.51); Absolute Neutrophil Count 6.1 X10^3/uL (2.0-7.7); Basophil# 0.06 X10^3/uL; Basophil% 0.6 % (0-1); Eosinophil# 0.14 X10^3/uL; Eosinophils% 1.5 % (0-5); Hematocrit 38.8 % (37-47); Hemoglobin 12.5 g/dL (12.0-15.0); Lymphocyte # 2.23 X10^3/ul (0.83-4.51); Mean Corp Hgb Conc 32.2 g/dL (32-36); Mean Corpuscular Hgb 29.3 pg (27.0-32.0); Mean Corpuscular Volume 91.1 fL (81-99); Mean Platelet Vol. 10.7 fl (6.2-12.0); Monocyte# 0.73 X10^3/uL; Monocyte% 7.8 % (0-10); NRBC Flagged by Analyzer 0 % (0-5); Neutrophil % 65.7 % (47-70); Platelet Count 284 K/mm3 (150-450); RBC Distribution Width CV 13.8 % (11.6-14.6); RBC Distribution Width SD 46.1 fl (35.1-43.9); Red Blood Count 4.26 M/mm3 (4.2-5.4); White Blood Count 9.3 K/mm3 (4.4-11.0)
[2024-03-01 15:25] LABS: Vitamin D,25 Hydroxy 64.4 ng/mL
[2024-03-01 16:07] LABS: ALB/GLOB Ratio 1.1 RATIO (0.9-2.4); AST(SGOT) 21 U/L (15-37); Alanine Aminotransfer ALT/SGPT 16 U/L (13-56); Alkaline Phosphatase 51 U/L (45-117); Anion Gap 3 (5-15); BUN 10 mg/dL (7-18); BUN/Creat Ratio 11.4 RATIO (10-20); Calcium,Total 9.3 mg/dL (8.5-10.1); Chloride 105 mmol/L (98-107); Creatinine, Serum 0.88 mg/dL (0.55-1.02); EST Glomerular Filtration Rate 67 mL/min (>60); Est Glom Filt Rate - Afr Amer 81 mL/min (>60); Globulin 3.5 g/dL (2.2-4.2); Glucose 89 mg/dL (74-106); Potassium 3.9 mmol/L (3.5-5.1); Protein, Total 7.5 g/dL (6.4-8.2); Sodium Level 137 mmol/L (136-145); Thyroid Stim Hormone (TSH) 1.59 uIU/mL (0.358-3.74)
[2024-03-03 17:07] LABS: Endomysial Antibody IgA Negative (Negative); Immunoglobulin A 180 mg/dL (64-422); t-Transglutaminase IgA <2 U/mL (0-3)
[2024-03-06 11:09] LABS: Beef <0.10 kU/L (Class 0); Chocolate <0.10 kU/L (Class 0); Codfish <0.10 kU/L (Class 0); Corn <0.10 kU/L (Class 0); Egg, Whole <0.10 kU/L (Class 0); Milk (Cow) <0.10 kU/L (Class 0); Mussels <0.10 kU/L (Class 0); Peanut <0.10 kU/L (Class 0); Pork <0.10 kU/L (Class 0); Salmon <0.10 kU/L (Class 0); Shrimp <0.10 kU/L (Class 0); Soybean <0.10 kU/L (Class 0); Tuna <0.10 kU/L (Class 0); Wheat <0.10 kU/L (Class 0)
== END | disposition home or self-care (01) ==
LOC: LAB 14:01
PROVIDERS: PCP Family Medicine; Referring Provider Student in an Organized Health Care Education/Training Program; Visit Provider Student in an Organized Health Care Education/Training Program
DX: R19.7 Diarrhea, unspecified (principal); R53.83 Other fatigue
CPT/HCPCS: 36415; 80053; 82306; 82746; 82784; 83516; 84443; 85025; 86003; 86005; 86255

== ENCOUNTER 2024-03-04 11:46 | Outpatient (CLI) | payer MEDICARE, OTHER, SELFPAY ==
[2024-03-09 15:09] LABS: Pancreatic Elastase, Fecal > 800 (>200)
[2024-03-09 21:07] LABS: Calprotectin, Stool 94 ug/g (0-120)
== END 2024-03-04 23:59 | disposition home or self-care (01) ==
PROVIDERS: PCP Family Medicine; Referring Provider Student in an Organized Health Care Education/Training Program; Visit Provider Student in an Organized Health Care Education/Training Program
DX: K58.0 Irritable bowel syndrome with diarrhea (principal)
CPT/HCPCS: 82653; 83630; 83993; 87177; 87209; 87329; 87493; 87506

== ENCOUNTER 2024-04-13 13:04 | Day surgery (SDC) | payer MEDICARE, OTHER, SELFPAY ==
[2024-04-13] VITALS (9 sets, daily range): BP systolic 104–137; BP diastolic 63–76; PULSE 65–89; RESP 16–18; TEMP 36.1–36.2; O2SAT 96–100; BMI 21.2
[2024-04-13] MEDS: Lactated Ringers 1,000 ML 15 ML IV (13:38)
--- NOTE | 2024-04-13 13:45 | PCM.HP.BLA ---
History and Physical Date of Admission: 04/13/24 Nurse's Note: OV .29.24 Pt reports diarrhea, fatigue, weakness, heartburn, indigestion and difficulty swallowing. Pt states she has diarrhea about 4 or more times a day. Pt has not has a seizure in about 1 1/2 years. She takes omeprazole daily. [facility] Medical History Acute respiratory failure with hypoxia Afib Anxiety and depression Arthritis Bleeding disorder Cardiac enzymes elevated Cataract, left eye Chronic bronchitis Essential hypertension Gallstones Heart murmur Hepatitis C History of blood clots History of blood transfusion Hypercortisolemia IBS (irritable bowel syndrome) Influenza A Liver disease Mental status change Narcolepsy Neuropathy Osteoarthritis Osteopenia Osteoporosis Osteoporosis Paroxysmal atrial fibrillation Pneumonia Rheumatoid arthritis Sepsis Vitamin deficiency Von Willebrand disease Surgical History History of breast biopsy History of cholecystectomy History of colonoscopy (~2010) History of dilation and curettage History of esophagogastroduodenoscopy (EGD) (~2005) History of repair of ACL History of total hysterectomy Family History Mother Endometrial cancer Breast cancer Ovarian cancer Respiratory diseaseUncle Cardiac diseaseSister Liver disease Hep CFather Depression Social History Smoking Status: Former smoker Tobacco: How many years used: 10 how long ago did patient quit smokin second hand exposure: No alcohol intake: never substance use type: does not use caffeine: Yes Type: coffee Number of servings: 2 HPI HPI Chief Complaint: diarrhea Details: AICHA ROLLINS, is a 73 F who presents to the office today for establishment with [facility]. She has been having daily diarrhea for a year and a half. Prior to this, she has always had occasional diarrhea but it has progressively been worsening. She is unable to leave her home because she is afraid of having an accident. She has been losing weight as well as not having an appetite. She also has fatigue. She is unable to tell me if she would still have diarrhea if she did not eat. She is not sure when her last colonoscopy and EGD were but says she has had one. Her also mentions she has a hard time swallowing and cannot take pills. She says she has a small throat. She denies abdominal pain, n/v, melena or hematochezia. ROS Const Constitutional: Positive for fatigue and weight change; No fever(s) ENT ENT: Positive for difficulty swallowing Cardio Cardiology: Positive for leg pain with exertion Gastro GI: Positive for diarrhea and difficulty swallowing; No abdominal pain, belching, bloating, change in bowel habits, change in stool character, coffee ground emesis, constipation, cramping, heartburn, feeling full early, excessive flatus, incontinent of stools, Vomiting blood/hematemesis, Blood in stool, loose stools, Black,tarry stools, nausea/dyspepsia, pain with swallowing, vomiting or other Musc Musculoskeletal: Positive for abnormal gait, joint pain, muscle weakness, numbness, tingling, Arthritis, restless legs and leg pain with exertion Skin Skin: No yellowing of the eye or itchy eyes Neuro Neurology: Positive for abnormal gait, numbness, tingling and restless legs Psych Psychiatric: Positive for anxiety and Positive for depression Endo Endocrine: Positive for fatigue and weight change Aller/Imm Allergy/Immunologic: No itchy eyes Del/Lymp Hematologic/Lymphatic: Positive for easy bleeding and easy bruising Exam Const General: cooperative and comfortable Nutritional Appearance: average body habitus and well nourished [facility] Head: normal to inspection Ears: hearing grossly normal bilaterally Nose: external nose normal Face and sinus: normal facial exam Mouth: oral mucosae normal Throat: posterior oropharynx normal Eyes General: appearance normal, both eyes and all related structures Neck Neck: normal visual inspection Chest Chest palpation & inspection: normal inspection of the chest and normal palpation of entire chest wall Resp Effort & Inspection: normal respiratory effort Auscultation: Bilateral: Clear to Auscultation Cardio Palpation: normal PMI Rate: regular rate Rhythm: regular rhythm GI Inspection: normal to inspection Auscultation: normal bowel sounds Percussion: normal to percussion Palpation: no hepatosplenomegaly Skin General: no rashes or lesions noted Neuro General: patient alert Extrem General: normal to inspection Psych Affect: normal affect Assessment and Plan Assessment and Plan (1) Diarrhea: Status: Acute Plan: Patient is here today to establish care for her chronic diarrhea. Differential diagnosis for diarrhea include EPI, celiac disease, food allergies and IBS. -She will be scheduled for EGD and colonoscopy as she is unsure when her last one was. -Will order stool elastase, lactoferrin, calprotectin, -Will order blood tests for CBC, CMP, celiac panel, food allergens, vitamin D, and folate -Recommended taking a fiber supplement daily like Metamucil or Benefiber -She will also take 4 g of cholestyramine daily for diarrhea (2) Dysphagia: Status: Acute Plan: -Will get EGD to start and in the future consider other testing Orders: Orders CBC W/Diff, Automated Today R19.7 - Diarrhea, unspecified Allergen, Food Profile 14 Today R19.7 - Diarrhea, unspecified Calprotectin, Stool Today R19.7 - Diarrhea, unspecified CDIFF (PCR) Today R19.7 - Diarrhea, unspecified Celiac Disease Profile Today R19.7 - Diarrhea, unspecified Comprehensive Metabolic Profil Today R19.7 - Diarrhea, unspecified Giardia Lamblia, Stool EIA Today R19.7 - Diarrhea, unspecified Thyroid Stim Hormone (TSH) Today R19.7 - Diarrhea, unspecified Pancreatic Elastase, Fecal Today R19.7 - Diarrhea, unspecified Stool Lactoferrin/WBC Today K58.9 - Irritable bowel syndrome without diarrhea Ova and Parasites 8623 Today K58.9 - Irritable bowel syndrome without diarrhea Folates, (Folic Acid) Today R19.7 - Diarrhea, unspecified Vitamin D,25 Hydroxy Today R53.83 - Other fatigue ENTERIC PATHOGEN PANEL STOOL Today K58.9 - Irritable bowel syndrome without diarrhea, R19.7 - Diarrhea, unspecified Medications: New cholestyramine (with sugar) 4 gram administer w/meal; avoid other meds within 1hr before or 4-6hr after dose 4 grams PO DAILY 348.6 grams 2RF 3 months I have examined the patient and the H&P has been reviewed. There are no clinical changes since date of exam.
--- NOTE | 2024-04-13 13:48 | EKG12_ITS ---
Test Reason : PREOP Blood Pressure : / mmHG Vent. Rate : 081 BPM Atrial Rate : 312 BPM P-R Int : 000 ms QRS Dur : 112 ms QT Int : 390 ms P-R-T Axes : 091 -68 034 degrees QTc Int : 453 ms Atrial flutter with variable A-V block Pulmonary disease pattern Left anterior fascicular block Minimal voltage criteria for LVH, may be normal variant ( Richard product ) Septal infarct , age undetermined Cannot rule out Inferior infarct (masked by fascicular block?) , age undetermined Abnormal ECG When compared with ECG of 09-MAY-2022 18:50, Atrial flutter has replaced Sinus rhythm T wave inversion no longer evident in Inferior leads Confirmed by HERMAN PICHARDO, JUAN J ([id number]), desk editor VICKIE AUGUSTIN ([id number]) on 04/15/2024 11:29:12 AM Referred By: Dhiraj Patel Confirmed By:JUAN J SUTTON MD
--- NOTE | 2024-04-13 14:15 | IMM_PTH ---
PATIENT: AICHA ROLLINS LOC: [facility] U#:[id number] AGE/SX: 73/F ROOM: RE04/13/[address]: Dr. Inder Morel DO : 1950 BED: DIS: 04/13/2024 SPEC #: [id number] RECD: 04/14/24 08:28 STATUS: YOGESH REQ #: [id number] GINGER: 04/13/24 14:[address]: Inder Morel DEPT: IMMUNOHISTOCHEMISTRY RECD BY: Ulisses Brown ENTERED: 04/14/24 08:29 SP TYPE: IMMUNO OTHR DR: Dr. Lul Patel MD Tissues: A - Gastric mucous membrane Procedures: H Pylori (initial) PHYSICIAN & INSTITUTION [place] [address] SPECIMEN INFORMATION: Tissue Source: A- Gastric body biopsy Clinical Info: Diarrhea, dysphagia Specimen Number: [id number] CPT code: 58718 METHODOLOGY: Deparaffinized sections of prefer/formalin-fixed tissue or PAP/DQ stained slides are incubated with monoclonal/polyclonal antibodies/oligonucleotide probes. Localization is made via biotin free immunoperoxidase method. Appropriate controls are performed and reacted as expected. Results on target cell population are indicated in the following table: RESULTS: ANTIBODY / CLONE RESULT Block A H Pylori (polyclonal) negative These tests were developed and their performance characteristics determined by [facility]. They may not have been cleared or approved by the U.S. Food and Drug Administration. The FDA has determined that such clearance or approval is not necessary. The above immunohistochemical/dualISH markers are ordered and reviewed by the Pathologist. INTERPRETATION: A. Gastric body, biopsy: Negative for Helicobacter pylori organisms. RENÉE/ 04/15/2024
--- NOTE | 2024-04-13 14:15 | COLBX_PTH ---
PATIENT: AICHA ROLLINS LOC: [facility] U#:[id number] AGE/SX: 73/F ROOM: RE04/13/[address]: Dr. Inder Morel DO : 1950 BED: DIS: 04/13/2024 SPEC #: [id number] RECD: 04/13/24 18:02 STATUS: YOGESH ADILENE #: [id number] GINGER: 04/13/24 14:[address]: Inder Morel DEPT: SURGICAL PATHOLOGY RECD BY: Vesna Higuera ENTERED: 04/14/24 07:40 SP TYPE: COLON BX OTHR DR: Dr. Lul Patel MD Tissues: A - Gastric mucous membrane B - Esophagus, NOS C - Sigmoid colon biopsy D - Rectum, NOS Procedures: Special Stain Group I Surgery Specimen Level IV Alcian Blue/PAS (control) HEADER OPERATION: Colonoscopy, EGD biopsy PRE-OP DIAGNOSIS: Diarrhea, dysphagia TISSUE SUBMITTED: A- Gastric body biopsy, B- Distal esophagus biopsy, C- Sigmoid polyp, D- Rectal biopsy MICROSCOPIC DIAGNOSIS A. Gastric body, biopsy: Mild chronic gastritis. See comment. B. Distal esophagus, biopsy: Gastroesophageal junction mucosa with mild chronic inflammation. No evidence of goblet cell metaplasia. See comment. C. Sigmoid polyp, biopsy: Hyperplastic polyp. D. Rectum, biopsy: No pathologic change. / 04/15/2024 COMMENT A. The results of immunohistochemistry for Helicobacter pylori will be reported separately ([id number]). B. Alcian blue/PAS stain with matched control is used in the evaluation of the specimen. MICROSCOPIC DESCRIPTION Slides are reviewed. GROSS DESCRIPTION A. Received in fixative is one container labeled with the patient's name and designated Gastric body biopsy. The specimen consists of multiple irregular fragments of light watkins soft tissue that in aggregate measure 0.8 x 0.3 x 0.1 cm. The specimen is totally submitted in one cassette. B. Received in fixative is one container labeled with the patient's name and designated Distal esophagus biopsy. The specimen consists of two irregular fragments of light watkins soft tissue that in aggregate measure 0.8 x 0.4 x 0.1 cm. The specimen is totally submitted in one cassette. C. Received in fixative is one container labeled with the patient's name and designated Sigmoid polyp. The specimen consists of one irregular fragment of light watkins soft tissue that measures 0.7 x 0.3 x 0.1 cm. The specimen is totally submitted in one cassette. D. Received in fixative is one container labeled with the patient's name and designated Rectal biopsy. The specimen consists of multiple irregular fragments of light watkins soft tissue that in aggregate measure 1.0 x 0.3 x 0.1 cm. The specimen is totally submitted in one cassette. SJ.mr 04/14/2024 TC:3 CPT:86134e3,17196
--- NOTE | 2024-04-13 14:17 | PRE.ANES_ITS ---
ASA Classification* ASA Classification ASA Classification: 3 Assessment & Plan Anesthesia* Anesthesia Assessment Anesthesia Assessment: Discussed sedation and/or anesthesia options, risks, benefits, and alternatives with patient/parents/legal guardian/POA. Questions invited. The patient/parents/legal guardian/POA seems to understand and agrees to proceed with anesthesia plan. Reviewed the physical assessment, medical history, allergy history and patient home medications list prior to surgery/procedure/anesthetic and documented any changes. Performed airway and anesthesia risk assessments. Anesthesia Type Anesthesia Type: MAC History Source History Obtained from:: Patient and Chart Anesthesia Focused Assessment* Temperature: 96.9 F Pulse Rate: 89 Blood Pressure: 134/75 Respiratory Rate: 18 Pulse Ox: 96 Oxygen Delivery Method: Room Air Airway Assessment Mouth opens: >3 cm Mallampati Score: I Teeth Condition: Missing (Patient is missing multiple teeth. Rest of the teeth are tight.) Neck Range of motion (ROM): Full ROM Pertinent Findings EKG Pertinent Findings:: April 13, 2024. Atrial flutter with variable AV block. Left anterior fascicular block. Septal infarct age undetermined. Inferior infarct cannot be ruled out. Compared to May 15, 2022, only the atrial flutter is new. Focused Labs Anesthesia Preop lab: CBC WBC 9.3 K/mm3 (4.4-11.0) 03/01/24 14:07 RBC 4.26 M/mm3 (4.2-5.4) 03/01/24 14:07 Hgb 12.5 g/dL (12.0-15.0) 03/01/24 14:07 Hct 38.8 % (37-47) 03/01/24 14:07 Plt Count 284 K/mm3 (150-450) 03/01/24 14:07 CHEMISTRY Potassium 3.9 mmol/L (3.5-5.1) 03/01/24 14:07 Sodium 137 mmol/L (136-145) 03/01/24 14:07 Magnesium 2.2 mg/dL (1.6-2.6) 05/13/22 11:54 Phosphorus 2.0 mg/dL (2.5-4.9) L 06/29/18 06:30 BUN 10 mg/dL (7-18) 03/01/24 14:07 Creatinine 0.88 mg/dL (0.55-1.02) 03/01/24 14:07 Glucose 89 mg/dL (74-106) 03/01/24 14:07 POC Glucose 117 mg/dL (70-110) H 05/18/16 06:41 TSH 1.59 uIU/mL (0.358-3.74) 03/01/24 14:07 COAG PT 13.9 SECONDS (11.7-14.9) 05/25/19 15:49 Pre-Assessment Diagnosis/Proposed Procedure Planned Operative Procedure(s): COLONOSCOPY/EGD Anesthesia History 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 When Was Last Pacemaker Check QUESTION #4 FULL TEXT: You/Your Family Experience fever (hyperthermia) with Anesthesia Last Oral Intake Last Oral intake: Last Oral Intake NPO since 00:00 04/13/24 13:30 Meds taken in AM with sips of Yes 04/13/24 13:30 water? 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 Female Yes 04/12/24 10:00 HX of Motion Sickness No 04/12/24 10:00 HX of N/V After Surgery No 04/12/24 10:00 Non-Smoker Yes 04/12/24 10:00 Duration of Surgery greater No 04/12/24 10:00 than 60 minutes Number of Risk Factors 2 04/12/24 10:00 PONV Score Moderate Risk 04/12/24 10:00 Height & Weight Height & Weight: Anesthesia: Height & Weight Height 5 ft 4 in 04/13/24 13:30 Weight: 56.019 kg 04/13/24 13:30 Body Mass Index (BMI) 21.2 04/13/24 13:30 Respiratory Assessment Respiratory Assessment - assault amphibious vehicle officer: Respiratory Tract Infection Hx - 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 Has anyone observed you stop No 04/12/24 10:00 breathing during sleep? STOP Results Negative 04/12/24 10:00 QUESTION #5 FULL TEXT : Do you snore loudly (louder than talking or can be heard through closed doors)? 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 Specify any problems Hx of Preganancy in last 3 No 04/12/24 10:00 Months Nurse Filling Out Transfusion VCHRISTIN 04/12/24 10:00 & Questions: Date: 04/12/24 04/12/24 10:00 Time: 10:02 04/12/24 10:00 Patient unable to answer at this time (ie. 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: /Reproductive Hx- assault amphibious vehicle officer Hx Now Gestational Age (in weeks): EDC: Hx Hx Para Hx Section SAB Active Medications Active Medications: Current Medications Generic Name Dose Route Start Last Admin Trade Name Tenzin PRN Reason Stop Dose Admin Lactated Ringer's 1,000 mls @ 15 mls/hr 04/13/24 13:15 04/13/24 13:38 IV 15 mls/hr .Q48H SHANNEN Administration PFSH Medical History (Updated 04/12/24 @ 10:00 by Jodie Campos) Wears glasses Post-menopausal Rheumatoid arthritis Excessive bleeding Seizures History of diverticulitis Gastric reflux Former smoker Shortness of breath on exertion History of echocardiogram History of stress test Cardiology follow-up encounter Chest pain Cataract, left eye Afib Essential hypertension Paroxysmal atrial fibrillation Osteoporosis Vitamin deficiency Osteoporosis Osteopenia Osteoarthritis Neuropathy Heart murmur Liver disease IBS (irritable bowel syndrome) Hepatitis C Gallstones Chronic bronchitis Bleeding disorder History of blood clots Arthritis History of blood transfusion Acute respiratory failure with hypoxia Sepsis Pneumonia Cardiac enzymes elevated Influenza A Anxiety and depression Narcolepsy Von Willebrand disease Rheumatoid arthritis Mental status change Home Medications ?Medication ?Instructions ?Recorded ?Last Taken ?Type omeprazole 40 mg capsule,delayed 40 mg PO BID gerd/acid reflux 05/18/16 04/12/24 History release multivitamin,[id number] 0.5 tab PO BID 05/31/19 04/12/24 History (Complete Multivitamin tablet) cholecalciferol (vitamin D3) 50 50 mcg PO DAILY 10/30/21 04/12/24 History mcg (2,000 unit) capsule (Vitamin D3) fluticasone propionate 50 2 spray intranasal DAILY PRN 05/15/22 Unknown History mcg/actuation nasal allergies spray,suspension metoprolol tartrate 50 mg tablet 50 mg PO BID 05/15/22 04/13/24 08:29 History potassium chloride 20 mEq 20 meq PO DAILY supplement 05/15/22 04/12/24 History tablet,extended release(part/cryst) denosumab 60 mg/mL subcutaneous 60 mg subcut [id number] BONES #1 mL 01/27/23 Unknown Rx syringe lamotrigine 25 mg tablet 50 mg (2 x 25 mg) PO BID #120 tabs 07/03/23 04/12/24 Rx acetaminophen 325 mg tablet 650 mg PO BID Pain 08/23/24 09/09/24 History Allergy/AdvReac Type Severity Reaction Status Date / Time codeine Allergy Hives Verified 04/13/24 13:28 morphine Allergy Hives Verified 04/13/24 13:28 Opioids - Morphine Analogues Allergy Hives Verified 04/13/24 13:28 sotalol AdvReac Unknown Confusion Verified 04/13/24 13:28 aminocaproic acid (From AdvReac NEEDS Verified 04/13/24 13:28 Amicar) FOLLOW-UP bupropion AdvReac Nausea Verified 04/13/24 13:28 cephalexin AdvReac Upset Verified 04/13/24 13:28 Stomach citric acid AdvReac sore throat Verified 04/13/24 13:28 duloxetine (From Cymbalta) AdvReac Other Verified 04/13/24 13:28 Food Allergies: Uncoded AdvReac Nausea/Vom/ Verified 04/13/24 13:28 Diarrhea levetiracetam (From Keppra) AdvReac Other Verified 04/13/24 13:28 Family History Mother Endometrial cancer Breast cancer Ovarian cancer Respiratory disease Uncle Cardiac disease Sister Liver disease Hep C Father Depression Surgical History History of colonoscopy (~2010) History of esophagogastroduodenoscopy (EGD) (~2005) History of total hysterectomy History of repair of ACL History of dilation and curettage History of cholecystectomy History of breast biopsy Social History Smoking Status: Former smoker Tobacco: How many years used: 10 how long ago did patient quit smokin second hand exposure: No alcohol intake: never substance use type: does not use caffeine: Yes Type: coffee Number of servings: 2 Review of Systems (Anesthesia) ROS Narrative System reviewed and no additional complaints, except as documented.
--- NOTE | 2024-04-13 15:24 | OP.EGD_ITS ---
Patient Name: Tanya Calvillo Procedure Date: 04/13/2024 2:34 PM Date of : 1950 Age: 73 Procedure: Upper GI endoscopy Indications: Epigastric abdominal pain, Functional Dyspepsia, Dysphagia Providers: Inder Morel DO Medicines: Monitored Anesthesia Care Patient Profile: This is a 73 year old female. Refer to note in patient chart for documentation of history and physical. Patient has symptoms of chronic epigastric abdominal pain and chronic dysphagia. Complications: No immediate complications. Procedure: Pre-Anesthesia Assessment: - Prior to the procedure, a History and Physical was performed, and patient medications and allergies were reviewed. The patient is competent. The risks and benefits of the procedure and the sedation options and risks were discussed with the patient. All questions were answered and informed consent was obtained. Patient identification and proposed procedure were verified by the physician in the pre-procedure area. Mental Status Examination: alert and oriented. Airway Examination: normal oropharyngeal airway and neck mobility. Respiratory Examination: clear to auscultation. CV Examination: normal. Prophylactic Antibiotics: The patient does not require prophylactic antibiotics. Prior Anticoagulants: The patient has taken no anticoagulant or antiplatelet agents. ASA Grade Assessment: II - A patient with mild systemic disease. After reviewing the risks and benefits, the patient was deemed in satisfactory condition to undergo the procedure. The anesthesia plan was to use monitored anesthesia care (MAC). Immediately prior to administration of medications, the patient was re-assessed for adequacy to receive sedatives. The heart rate, respiratory rate, oxygen saturations, blood pressure, adequacy of pulmonary ventilation, and response to care were monitored throughout the procedure. The physical status of the patient was re-assessed after the procedure. After obtaining informed consent, the endoscope was passed under direct vision. Throughout the procedure, the patient's blood pressure, pulse, and oxygen saturations were monitored continuously. The colonoscope was introduced through the mouth, and advanced to the second part of duodenum. The upper GI endoscopy was accomplished without difficulty. The patient tolerated the procedure well. Scope In: 2:45:52 PM Scope Out: 2:49:58 PM Total Procedure Duration Time 0 hours 4 minutes 6 seconds Findings: LA Grade B (one or more mucosal breaks greater than 5 mm, not extending between the tops of two mucosal folds) esophagitis with no bleeding was found 36 to 38 cm from the incisors. Biopsies were taken with a cold forceps for histology. Verification of patient identification for the specimen was done. Estimated blood loss was minimal. Diffuse mild inflammation characterized by congestion (edema), erosions and erythema was found in the gastric body. Biopsies were taken with a cold forceps for histology. Verification of patient identification for the specimen was done. Estimated blood loss was minimal. Multiple diffuse erosions without bleeding were found in the first portion of the duodenum. Biopsies were taken with a cold forceps for histology. Verification of patient identification for the specimen was done. Estimated blood loss was minimal. Impression: - LA Grade B reflux esophagitis with no bleeding. Biopsied. - Chronic gastritis. Biopsied. - Duodenal erosions without bleeding. Biopsied. Recommendation: - Discharge patient to home. - Resume previous diet. - Continue present medications. - Await pathology results. Procedure Code(s): --- Professional --- 80507, Esophagogastroduodenoscopy, flexible, transoral; with biopsy, single or multiple CPT copyright 2021 [employer] [place] [employer]. All rights reserved. The codes documented in this report are preliminary and upon soldering technician review may be revised to meet current compliance requirements. Inder Morel DO 04/13/2024 3:24:00 PM This report has been signed electronically. Number of Addenda: 0 Note Initiated On: 04/13/2024 2:34 PM
--- NOTE | 2024-04-13 15:24 | OP.CCLET_ITS ---
04/13/2024 Robert Patel [address] [place] [address] Re : Upper GI endoscopy procedure for Tanya Calvillo Dear Dr. Patel This procedure was performed on Saturday, April 13, 2024. My impressions and recommendations are as follows: Impressions : - LA Grade B reflux esophagitis with no bleeding. Biopsied. - Chronic gastritis. Biopsied. - Duodenal erosions without bleeding. Biopsied. Recommendations : - Discharge patient to home. - Resume previous diet. - Continue present medications. - Await pathology results. My findings are described in the full procedure note, which is enclosed. If I can be of further assistance, please feel free to contact me at . Sincerely, Inder Morel, 04/13/2024 3:24:00 PM This report has been signed electronically.
--- NOTE | 2024-04-13 15:25 | PCM.POST.ANE ---
Anesthesia: Postop Eval I Current Vital Signs Temperature: 97 F Pulse Rate: 72 Blood Pressure: 107/67 Respiratory Rate: 16 Pulse Ox: 99 Oxygen Delivery Method: Room Air Assessment Airway patent: Yes Spontaneous unlabored respirations: Yes Mental status: Asleep nausea: No Vomiting: No Anesthesia Complication: No Fluid Hydration Crystalloid volume administer (ml): 800 Total IV fluid infused: 800 Progress Note Anesthesia document: Postop Eval 1 completed: Yes
--- NOTE | 2024-04-13 15:29 | OP.COLON_ITS ---
Patient Name: Tanya Calvillo Procedure Date: 04/13/2024 2:50 PM Date of : 1950 Age: 73 Procedure: Colonoscopy Indications: Chronic diarrhea Providers: Inder Morel DO Medicines: Monitored Anesthesia Care Patient Profile: This is a 73 year old female. Refer to note in patient chart for documentation of history and physical. Patient has symptoms of chronic epigastric abdominal pain and chronic dysphagia. Last Colonoscopy: date unknown. Unable to locate last colonoscopy report. Complications: No immediate complications. Procedure: Pre-Anesthesia Assessment: - Prior to the procedure, a History and Physical was performed, and patient medications and allergies were reviewed. The patient is competent. The risks and benefits of the procedure and the sedation options and risks were discussed with the patient. All questions were answered and informed consent was obtained. Patient identification and proposed procedure were verified by the physician in the pre-procedure area. Mental Status Examination: alert and oriented. Airway Examination: normal oropharyngeal airway and neck mobility. Respiratory Examination: clear to auscultation. CV Examination: normal. Prophylactic Antibiotics: The patient does not require prophylactic antibiotics. Prior Anticoagulants: The patient has taken no anticoagulant or antiplatelet agents. ASA Grade Assessment: II - A patient with mild systemic disease. After reviewing the risks and benefits, the patient was deemed in satisfactory condition to undergo the procedure. The anesthesia plan was to use monitored anesthesia care (MAC). Immediately prior to administration of medications, the patient was re-assessed for adequacy to receive sedatives. The heart rate, respiratory rate, oxygen saturations, blood pressure, adequacy of pulmonary ventilation, and response to care were monitored throughout the procedure. The physical status of the patient was re-assessed after the procedure. After I obtained informed consent, the scope was passed under direct vision. Throughout the procedure, the patient's blood pressure, pulse, and oxygen saturations were monitored continuously. The colonoscope was introduced through the anus and advanced to the terminal ileum. The colonoscopy was performed without difficulty. The patient tolerated the procedure well. The quality of the bowel preparation was adequate. The terminal ileum, ileocecal valve, appendiceal orifice, and rectum were photographed. Scope In: 2:52:07 PM Scope Withdrawal Time 0 hours 9 minutes 40 seconds Scope Out: 3:12:44 PM Total Procedure Duration Time 0 hours 20 minutes 37 seconds Findings: The perianal and digital rectal examinations were normal. A 5 mm polyp was found in the recto-sigmoid colon. The polyp was sessile. The polyp was removed with a cold snare. Resection and retrieval were complete. Verification of patient identification for the specimen was done. Estimated blood loss was minimal. An area of mildly congested mucosa was found in the rectum, in the recto-sigmoid colon, in the sigmoid colon and in the descending colon. Biopsies were taken with a cold forceps for histology. Verification of patient identification for the specimen was done. Estimated blood loss was minimal. The terminal ileum appeared normal. Impression: - One 5 mm polyp at the recto-sigmoid colon, removed with a cold snare. Resected and retrieved. - Congested mucosa in the rectum, in the recto-sigmoid colon, in the sigmoid colon and in the descending colon. Biopsied. - The examined portion of the ileum was normal. Recommendation: - Discharge patient to home. - Resume previous diet. - Continue present medications. - Await pathology results. - Repeat colonoscopy in 5 years for surveillance. Procedure Code(s): --- Professional --- 28338, Colonoscopy, flexible; with removal of tumor(s), polyp(s), or other lesion(s) by snare technique 20636, 59, Colonoscopy, flexible; with biopsy, single or multiple CPT copyright 2021 [employer]. All rights reserved. The codes documented in this report are preliminary and upon career resource specialist review may be revised to meet current compliance requirements. Inder Morel DO 04/13/2024 3:29:05 PM This report has been signed electronically. Number of Addenda: 0 Note Initiated On: 04/13/2024 2:50 PM
--- NOTE | 2024-04-13 15:29 | OP.CCLET_ITS ---
04/13/2024 Robert Patel [address] [place] [address] Re : Colonoscopy procedure for Tanya Calvillo Dear Dr. Patel This procedure was performed on Saturday, April 13, 2024. My impressions and recommendations are as follows: Impressions : - One 5 mm polyp at the recto-sigmoid colon, removed with a cold snare. Resected and retrieved. - Congested mucosa in the rectum, in the recto-sigmoid colon, in the sigmoid colon and in the descending colon. Biopsied. - The examined portion of the ileum was normal. Recommendations : - Discharge patient to home. - Resume previous diet. - Continue present medications. - Await pathology results. - Repeat colonoscopy in 5 years for surveillance. My findings are described in the full procedure note, which is enclosed. If I can be of further assistance, please feel free to contact me at . Sincerely, Inder Morel, 04/13/2024 3:29:05 PM This report has been signed electronically.
--- NOTE | 2024-04-13 15:42 | SUR.PHASEII ---
UPDATED WHO STATES PATIENT IS OFTEN CONFUSED, THIS IS NOT A NEW FINDING.
--- NOTE | 2024-04-13 16:38 | PCM.POSTANE2 ---
Anesthesia Postop Eval I Sum Postop Eval Completion status Anesthesia document: Postop Eval 1 completed: Yes Anesthesia Postop Eval I Summary Anesthesia Postop Eval I Summary: Anesthesia Postop Eval I: Assessment Summary Airway patent Yes 04/13/24 15:26 [email or web address] Spontaneous unlabored Yes 04/13/24 15:26 [email or web address] respirations Mental status Asleep 04/13/24 15:26 [email or web address] nausea No 04/13/24 15:26 [email or web address] Vomiting No 04/13/24 15:26 [email or web address] Anesthesia Postop Eval I: Fluid Summary Crystalloid volume administer 800 04/13/24 15:26 [email or web address] (ml) Colloids volume administered ( ml) Blood Product volume administered (ml) Total IV fluid infused 800 04/13/24 15:26 [email or web address] Anesthesia Postop Eval I: Summary Notes Anesthesia Complication No 04/13/24 15:26 [email or web address] Anesthesia Complication Comment: Post-operative progress note Anesthesia: Postop Eval II Evaluation Mental status: Awake and Calm Pain Level: 0 nausea: No Vomiting: No Complications Anesthesia Complication: No
== END 2024-04-13 16:31 | disposition home or self-care (01) ==
LOC: EN 13:08 → AC 13:08
PROVIDERS: PCP Family Medicine; Referring Provider Family Medicine; Visit Provider Internal Medicine Gastroenterology
PROC: 0DJD8ZZ Inspection of Lower Intestinal Tract, Via Natural or Artificial Opening Endoscopic (ICD-10-PCS; CPT 45378; principal; 2024-04-13 14:10)
DX: K21.00 Gastro-esophageal reflux disease with esophagitis, without bleeding (principal); D68.00 Von Willebrand disease, unspecified; I48.0 Paroxysmal atrial fibrillation; G40.909 Epilepsy, unspecified, not intractable, without status epilepticus; K29.50 Unspecified chronic gastritis without bleeding; K30 Functional dyspepsia; K26.9 Duodenal ulcer, unspecified as acute or chronic, without hemorrhage or perforation; K52.9 Noninfective gastroenteritis and colitis, unspecified; R13.10 Dysphagia, unspecified; K63.5 Polyp of colon; I10 Essential (primary) hypertension; Z79.899 Other long term (current) drug therapy; Z87.891 Personal history of nicotine dependence
CPT/HCPCS: 43239; 45380; 45385; 88305; 88312; 88342; 93005; J7120; J2405

== ENCOUNTER → 2024-05-18 | Outpatient (CLI) | payer MEDICARE, OTHER, SELFPAY ==
[2024-05-18 15:37] LABS: Hematocrit 41.2 % (37-47); Mean Corp Hgb Conc 31.6 g/dL (32-36); Mean Corpuscular Hgb 29.5 pg (27.0-32.0); Mean Corpuscular Volume 93.6 fL (81-99); Mean Platelet Vol. 10.8 fl (6.2-12.0); Platelet Count 290 K/mm3 (150-450); RBC Distribution Width CV 13.9 % (11.6-14.6); RBC Distribution Width SD 47.8 fl (35.1-43.9); White Blood Count 10.1 K/mm3 (4.4-11.0)
[2024-05-18 15:54] LABS: Anion Gap 7 (5-15); BUN 12 mg/dL (7-18); BUN/Creat Ratio 13.8 RATIO (10-20); Calcium,Total 9.6 mg/dL (8.5-10.1); Chloride 103 mmol/L (98-107); Creatinine, Serum 0.87 mg/dL (0.55-1.02); EST Glomerular Filtration Rate 68 mL/min (>60); Est Glom Filt Rate - Afr Amer 82 mL/min (>60); Glucose 95 mg/dL (74-106); Magnesium 2.3 mg/dL (1.6-2.6); Potassium 4.6 mmol/L (3.5-5.1); Sodium Level 138 mmol/L (136-145)
== END | disposition home or self-care (01) ==
LOC: MTLAB 13:07
PROVIDERS: PCP Family Medicine; Referring Provider Family Medicine; Visit Provider Family Medicine
DX: I48.91 Unspecified atrial fibrillation (principal)
CPT/HCPCS: 36415; 80048; 83735; 84443; 85027

== ENCOUNTER → 2024-06-03 | Outpatient (CLI) | payer MEDICARE, OTHER, SELFPAY ==
--- NOTE | 2024-06-03 10:30 | NM_ITS ---
CLINICAL: 73-year-old female with history of diarrhea. SEMI-SOLID PHASE 99m Tc SULFUR COLLOID GASTRIC EMPTYING STUDY COMPARISON: None available FINDINGS: The patient was administered 1.2 mCi of 99m Tc sulfur colloid mixed with oatmeal and consumed per os. Image acquisitions in the anterior-posterior projections were obtained for 60 minutes. There is prompt visualization of the stomach. There is no gastroesophageal reflux identified. The T ? linear fit was calculated to be 42.98 minutes, (Normal: 12-56 minutes). NM/Gastric Emptying Study IMPRESSION: 1. NORMAL 99m Tc sulfur colloid semi-solid phase (oatmeal) gastric emptying imaging examination. A. There is normal and preserved semi-solid phase gastric emptying compared to normal controls. (Randolph et al, J Nucl Med Tech 38: 186, 2010). Electronically Signed: Reji Oglesby DO at 12:57 EDT ,
== END | disposition home or self-care (01) ==
PROVIDERS: PCP Family Medicine; Referring Provider Student in an Organized Health Care Education/Training Program; Visit Provider Student in an Organized Health Care Education/Training Program
DX: R19.7 Diarrhea, unspecified (principal)
CPT/HCPCS: 78264; A9503

== ENCOUNTER → 2024-06-21 | Outpatient (CLI) | payer MEDICARE, OTHER, SELFPAY ==
--- NOTE | 2024-06-21 06:55 | ECHOD_ITS ---
Reason For Study: ATRIAL FIBRILLATION Procedure This was a 2D Doppler, Color Flow transthoracic echocardiogram. Exam performed in department. Left Ventricle Normal LV size. Left ventricular systolic function is normal. The left ventricular ejection fraction is 60 %. No regional wall motion abnormalities noted. Right Ventricle Normal RV size. Normal systolic function. Atria Normal left atrium. Normal right atrium. Mitral Valve Normal mitral valve. Mild (1+) eccentric mitral valve insufficiency. Tricuspid Valve Normal tricuspid valve. Mild (1+) tricuspid valve insufficiency. Pulmonary artery systolic pressure is 40 mmHg. Aortic Valve Trisinus/trileaflet aortic valve. Pulmonic Valve Normal pulmonic valve. Great Vessels Normal aortic root. The pulmonary artery is normal size. Normal inferior vena cava. Pericardium/Pleural No pericardial effusion. MMode/2D Measurements & Calculations LVIDd: 4.2 cm IVSd: 1.0 cm LVOT diam: 2.0 cm LVIDs: 2.9 cm LVPWd: 0.82 cm LVOT area: 3.0 cm2 RVDd: 3.1 cm FS: 31.8 % asc Aorta Diam: 3.5 cm LAV(MOD-bp): 50.9 ml LVAd ap4: 17.0 cm2 LAV(MOD-bp) Indexed: 31.8 ml/m2 LVLd ap4: 6.4 cm LAV(MOD-sp2): 42.7 ml EDV(MOD-sp4): 37.4 ml LAV(MOD-sp4): 59.1 ml EDV(sp4-el): 38.8 ml LVAs ap4: 10.1 cm2 LVLs ap4: 5.5 cm ESV(MOD-sp4): 15.3 ml ESV(sp4-el): 15.7 ml EF(MOD-sp4): 59.0 % EF(sp4-el): 59.4 % LVAd ap2: 19.1 cm2 SV(MOD-sp4): 22.0 ml SV(MOD-sp2): 24.4 ml LVLd ap2: 6.2 cm SI(MOD-sp4): 13.8 ml/m2 SI(MOD-sp2): 15.2 ml/m2 EDV(MOD-sp2): 47.0 ml EDV(sp2-el): 49.7 ml LVAs ap2: 12.5 cm2 LVLs ap2: 5.6 cm ESV(MOD-sp2): 22.7 ml ESV(sp2-el): 23.4 ml EF(MOD-sp2): 51.8 % SV(sp4-el): 23.1 ml Ao sinus diam: 3.[address] Junction: 2.5 cm LA dimension(2D): 3.1 cm LA A4 area: 20.2 cm2 RA A4 area: 18.1 cm2 TAPSE: 1.7 cm Time Measurements MV dec time: 0.13 sec Doppler Measurements & Calculations MV E max khadar: 131.3 cm/sec Lat Peak E' Khadar: 10.8 cm/sec Med Peak E' Khadar: 6.8 cm/sec E/E' lat: 12.2 E/E' med: 19.3 Ao V2 max: 85.1 cm/sec LV V1 max: 65.3 cm/sec SV(LVOT): 39.5 ml Ao max P.9 mmHg LV V1 max P.7 mmHg Ao V2 mean: 62.6 cm/sec LV V1 mean P.90 mmHg Ao mean P.7 mmHg LV V1 mean: 44.4 cm/sec Ao V2 VTI: 16.6 cm LV V1 VTI: 13.0 cm AV (velocity ratio): 0.79 SENTHIL(I,D): 2.4 cm2 SENTHIL(V,D): 2.3 cm2 PA V2 max: 63.8 cm/sec TR max khadar: 302.5 cm/sec TR max P.6 mmHg ECHO/Echo Complete Interpretation Summary Normal LV size. Left ventricular systolic function is normal. The left ventricular ejection fraction is 60 %. Mild (1+) tricuspid valve insufficiency. Ordering Physician: Marlene Webb Referring Physician: Lul Patel MD Performed By: Kavitha Jacinto RDCS and Student
--- NOTE | 2024-06-21 16:12 | STRESSREP ---
Stress Test Report Pharmacologic myocardial perfusion stress test. 73-year-old lady with a history of chest pain Resting EKG demonstrates atrial fibrillation with a rate of 86 bpm. Resting blood pressure is 122/60 mmHg. 0.4 mg of regadenoson was infused per usual protocol followed by rapid intravenous saline flush injection. Continuous EKG monitoring was performed. The maximum heart rate was 136 bpm which was 91% of max impacted heart rate the maximum workload was 1 metabolic equivalent. At rest there were no ST or T wave changes noted to suggest ischemia and at peak infusion nonspecific ST changes were noted which did not meet the criteria for ischemia. No clinical angina is noted. The final blood pressure was 118/60 mmHg. Myocardial perfusion protocol. 11.5 mCi of technetium 99m sestamibi was injected at rest. 0.4 mg of regadenoson was infused per usual protocol. At peak infusion 34.8 mCi of technetium 99m sestamibi was injected stress images were obtained stress and rest images were reconstructed and compared in the short axis vertical long and horizontal long axis. Gated images were also obtained. Perfusion SPECT analysis: Review of the stress images demonstrate normal uptake of tracer noted in all areas of the myocardium. The resting images similar demonstrated normal uptake of tracer noted in all areas of the myocardium. No areas of reversibility are noted to suggest ischemia and no previous infarct is noted. Gated SPECT analysis: The gated ejection fraction is 66%. Conclusion: Normal pharmacologic myocardial perfusion stress test. Preserved ejection fraction.
== END | disposition home or self-care (01) ==
LOC: CVS 06:51
PROVIDERS: PCP Family Medicine; Referring Provider Physician Assistant Medical; Visit Provider Physician Assistant Medical
DX: R94.31 Abnormal electrocardiogram [ECG] [EKG] (principal); R06.02 Shortness of breath; R06.09 Other forms of dyspnea; R07.9 Chest pain, unspecified
CPT/HCPCS: 78452; 93017; 93306; A9500; A4216; J2785

== ENCOUNTER → 2024-11-30 | Outpatient (CLI) | payer MEDICARE, OTHER, SELFPAY ==
[2024-11-30 15:20] LABS: Basophil# 0.06 X10^3/uL; Basophil% 0.5 % (0-1); Eosinophil# 0.11 X10^3/uL; Eosinophils% 0.9 % (0-5); Hemoglobin 13.2 g/dL (12.0-15.0); Lymphocyte % 22.9 % (19-41); Mean Corpuscular Hgb 29.9 pg (27.0-32.0); Mean Corpuscular Volume 90.7 fL (81-99); Mean Platelet Vol. 11.3 fl (6.2-12.0); Monocyte% 9.8 % (0-10); NRBC Flagged by Analyzer 0 % (0-5); Neutrophil # 7.95 X10^3/uL (2.7-7.7); Neutrophil % 64.9 % (47-70); Platelet Count 296 K/mm3 (150-450); RBC Distribution Width CV 13.9 % (11.6-14.6); RBC Distribution Width SD 46.5 fl (35.1-43.9); Red Blood Count 4.41 M/mm3 (4.2-5.4); White Blood Count 12.2 K/mm3 (4.4-11.0)
[2024-11-30 15:54] LABS: ALB/GLOB Ratio 1.8 RATIO (0.9-2.4); AST(SGOT) 24 U/L (<=31); Alanine Aminotransfer ALT/SGPT 13 U/L (<=34); Albumin, Serum 4.7 g/dL (3.4-4.8); Alkaline Phosphatase 47 U/L (35-104); Anion Gap 12 (5-15); BUN 17 mg/dL (4-19); BUN/Creat Ratio 17.3 RATIO (10-20); Calcium,Total 10.1 mg/dL (7.6-11.0); Carbon Dioxide 26.9 mmol/L (21.0-32.0); Chloride 94 mmol/L (98-108); Creatinine, Serum 0.98 mg/dL (0.70-1.20); EST Glomerular Filtration Rate 61 (>60); Globulin 2.7 g/dL (2.2-4.2); Glucose 119 mg/dL (70-99); Potassium 4.2 mmol/L (3.3-5.1); Protein, Total 7.3 g/dL (5.9-8.4); Sodium Level 133 mmol/L (133-145)
[2024-11-30 15:55] LABS: Vitamin B12 650 pg/mL (180-914); Vitamin D,25 Hydroxy 48.9 ng/mL (30-100)
[2024-11-30 18:08] LABS: Erythrocyte Sedimentation Rate 1 mm/hr (0-30)
[2024-12-02 08:08] LABS: Prealbumin 30 mg/dL (9-32)
== END | disposition home or self-care (01) ==
LOC: MTLAB 12:57
PROVIDERS: PCP Family Medicine; Referring Provider Family Medicine; Visit Provider Family Medicine
DX: E55.9 Vitamin D deficiency, unspecified (principal); M06.9 Rheumatoid arthritis, unspecified; I48.91 Unspecified atrial fibrillation; R63.4 Abnormal weight loss
CPT/HCPCS: 36415; 80053; 82306; 82607; 84134; 84443; 85025; 85652

== ENCOUNTER → 2025-03-08 | Outpatient (CLI) | payer MEDICARE, OTHER, SELFPAY ==
--- NOTE | 2025-03-08 16:00 | BI_ITS ---
EXAM: SCRN MAMM (CAD)W/JEANETTE BILAT DATE: 03/08/2025 CLINICAL HISTORY: F, Age 74 y/o , SCREENING TECHNIQUE: SCRN MAMM (CAD)W/JEANETTE BILAT COMPARISON: Prior exam(s) were compared FINDINGS: TISSUE DENSITY: The breasts are heterogeneously dense, which may obscure small masses. Bilateral Breast Mammographic Findings: No suspicious masses, calcifications or other abnormalities are identified. BI/SCRN MAMM (CAD)W/JEANETTE BILAT IMPRESSION: No mammographic evidence of malignancy in either breast. OVERALL FINAL ASSESSMENT BI-RADS 1: NEGATIVE. RECOMMENDATION: Routine annual follow-up in 1 Year A letter with findings and recommendations will be mailed to the patient. Reading Location: [id number]
--- NOTE | 2025-03-08 16:02 | BD_ITS ---
PROCEDURE: DEXA BONE DENSITY STUDY 03/08/2025 REASON FOR EXAM: F, age 74 y/o . . TECHNIQUE: DEXA BONE DENSITY STUDY COMPARISON: 03/06/2023 FINDINGS: BMD and T-SCORES Lumbar spine: 0.856 g/cm2, T-score -1.7 Levels: L1 through L4 Change from prior: Increased 2.3%. Left femoral neck: 0.577 g/cm2, T-score -2.5 Femoral neck comparison data not recommended for monitoring change. Prior T-score -2.4 Left total hip: 0.686 g/cm2, T-score -2.1 Change from prior: Increased 4.8%. Right femoral neck: 0.565 g/cm2, T-score -2.6 Femoral neck comparison data not recommended for monitoring change. Prior T-score -2.2 Right total hip: 0.638 g/cm2, T-score -2.5 Change from prior: -4.6% The World Health Organization has defined the following categories based on bone density: Normal bone density: T-score equal to or greater than -1.0 Osteopenia: T-score between -1.0 and -2.5 Osteoporosis: T-score equal to or less than -2.5 FRAX (or Comparable) Fracture Risk Assessment: 10 Year Probability of Fracture: Major Osteoporotic Fracture: 24% Hip Fracture: 13% (Note: FRAX is not to be reported in setting of normal range bone density, osteoporosis on DEXA, known history of osteoporosis, prior osteoporotic hip or vertebral fracture, or for any patient undergoing pharmacological treatment for bone loss.) The National Osteoporosis Foundation (NOF) recommends pharmacological treatment for patients with a FRAX 10-year risk of 3% or higher for a hip fracture, or 20% or higher for a major osteoporotic fracture, to prevent osteoporosis and reduce fracture risk. The patient does meet the pharmacological treatment recommendations for prevention of osteoporosis. BD/Dexa Bone Density Study IMPRESSION: There is osteopenia of the lumbar spine and left hip and osteoporosis of the ri ght hip. Recommend follow-up as clinically warranted. Reading Location: [id number]
== END | disposition home or self-care (01) ==
LOC: OPBD 15:58
PROVIDERS: PCP Family Medicine; Referring Provider Family Medicine; Visit Provider Family Medicine
DX: M81.0 Age-related osteoporosis without current pathological fracture (principal); Z12.31 Encounter for screening mammogram for malignant neoplasm of breast
CPT/HCPCS: 77063; 77067; 77080

== ENCOUNTER 2025-03-11 17:57 | Emergency (ER) | payer MEDICARE, OTHER, SELFPAY ==
[2025-03-11 17:58] VITALS: BP 140/91; PULSE 106; RESP 16; TEMP 35.7; O2SAT 99
[2025-03-11 18:11] VITALS: BMI 21.7
--- NOTE | 2025-03-11 18:16 | EKG12_ITS ---
Test Reason : CP Blood Pressure : */* mmHG Vent. Rate : 104 BPM Atrial Rate : * BPM P-R Int : * ms QRS Dur : 108 ms QT Int : 298 ms P-R-T Axes : * -60 48 degrees QTcB Int : 391 ms Atrial fibrillation with rapid ventricular response Left axis deviation Minimal voltage criteria for LVH, may be normal variant ( Richard product ) Confirmed by HERMAN PICHARDO, JUAN J ([id number]), technical editor VICKIE AUGUSTIN ([id number]) on 03/14/2025 1:07:07 PM Referred By: FRANNIE/TATI Confirmed By: JUAN J SUTTON MD
--- NOTE | 2025-03-11 18:17 | EX.ED.DYSGE1 ---
HPI <DAMIEN Holguin - Last Filed: 03/11/25 22:02> History of Present Illness Chief Complaint: Chest Pain Narrative Narrative: 74-year-old female past medical history of HTN, GERD, atrial fibrillation, von Willebrand's disease, epilepsy presenting with 3 days of fatigue and chest pressure. Today she felt lightheaded and her states she was too weak to easily walk to the bathroom so he brought her in for evaluation. She denies shortness of breath or cough. No nausea, vomiting, abdominal pain, melena hematochezia, diarrhea or urinary symptoms. She is on metoprolol twice daily for A-fib but not anticoagulated due to von Willebrand's disease. [facility] <DAMIEN Holguin - Last Filed: 03/11/25 22:02> [facility] Medical History Longstanding persistent atrial fibrillation Wears glasses Post-menopausal Rheumatoid arthritis Excessive bleeding Seizures History of diverticulitis Gastric reflux Former smoker Shortness of breath on exertion History of echocardiogram History of stress test Cardiology follow-up encounter Chest pain Cataract, left eye Afib Essential hypertension Paroxysmal atrial fibrillation Osteoporosis Vitamin deficiency Osteoporosis Osteopenia Osteoarthritis Neuropathy Heart murmur Liver disease IBS (irritable bowel syndrome) Hepatitis C Gallstones Chronic bronchitis Bleeding disorder History of blood clots Arthritis History of blood transfusion Acute respiratory failure with hypoxia Sepsis Pneumonia Cardiac enzymes elevated Influenza A Anxiety and depression Narcolepsy Von Willebrand disease Rheumatoid arthritis Mental status change Home Medications ?Medication ?Instructions ?Recorded ?Last Taken ?Type omeprazole 40 mg capsule,delayed 40 mg PO BID gerd/acid reflux 05/18/16 04/12/24 History release multivitamin,[id number] 0.5 tab PO BID 05/31/19 04/12/24 History (Complete Multivitamin tablet) cholecalciferol (vitamin D3) 50 50 mcg PO DAILY 10/30/21 04/12/24 History mcg (2,000 unit) capsule (Vitamin D3) fluticasone propionate 50 2 spray intranasal DAILY PRN 05/15/22 Unknown History mcg/actuation nasal allergies spray,suspension metoprolol tartrate 50 mg tablet 50 mg PO BID 05/15/22 04/13/24 08:29 History potassium chloride 20 mEq 20 meq PO DAILY supplement 05/15/22 04/12/24 History tablet,extended release(part/cryst) denosumab 60 mg/mL subcutaneous 60 mg subcut [id number] BONES #1 mL 01/27/23 Unknown Rx syringe acetaminophen 325 mg tablet 650 mg PO BID Pain 03/26/24 04/12/24 History diphenoxylate-atropine 2.5 1 tab PO BID PRN diarrhea #30 tabs 04/22/24 Unknown Rx mg-0.025 mg tablet (Lomotil) lamotrigine 25 mg tablet 50 mg (2 x 25 mg) PO BID #120 tabs 12/16/24 Unknown Rx memantine 10 mg tablet 10 mg PO BID #60 tabs 12/23/24 Unknown Rx Allergy/AdvReac Type Severity Reaction Status Date / Time codeine Allergy Hives Verified 03/11/25 17:58 morphine Allergy Hives Verified 03/11/25 17:58 Opioids - Morphine Analogues Allergy Hives Verified 03/11/25 17:58 sotalol AdvReac Unknown Confusion Verified 03/11/25 17:58 aminocaproic acid (From AdvReac NEEDS Verified 03/11/25 17:58 Amicar) FOLLOW-UP bupropion AdvReac Nausea Verified 03/11/25 17:58 cephalexin AdvReac Upset Verified 03/11/25 17:58 Stomach citric acid AdvReac sore throat Verified 03/11/25 17:58 duloxetine (From Cymbalta) AdvReac Other Verified 03/11/25 17:58 Food Allergies: Uncoded AdvReac Nausea/Vom/ Verified 03/11/25 17:58 Diarrhea levetiracetam (From Keppra) AdvReac Other Verified 03/11/25 17:58 Family History Mother Endometrial cancer Breast cancer Ovarian cancer Respiratory disease Uncle Cardiac disease Sister Liver disease Hep C Father Depression Surgical History History of colonoscopy (~2010) History of esophagogastroduodenoscopy (EGD) (~2005) History of total hysterectomy History of repair of ACL History of dilation and curettage History of cholecystectomy History of breast biopsy Social History Smoking Status: Former smoker Tobacco: How many years used: 10 how long ago did patient quit smokin second hand exposure: No alcohol intake: never substance use type: does not use caffeine: Yes Type: coffee Number of servings: 2 ROS <DAMIEN Holguin - Last Filed: 03/11/25 22:02> ROS ED ROS Narrative Constitutional: Negative for fever, chills. CVS: Positive for chest pain. No syncope. Respiratory: Negative for shortness of breath, cough. GI: Negative for abdominal pain, nausea, vomiting. EXAM <DAMIEN Holguin - Last Filed: 03/11/25 22:02> Physical Exam Narrative Exam Narrative: CONST: Patient sitting in no acute distress. EYES: Normal inspection. NECK: Normal inspection. RESP: No respiratory distress, CTAB. CVS: Irregularly irregular rhythm, no murmur, no gallop. ABD: Soft and nontender, no guarding or rebound, nondistended. SKIN: Color normal, no rash, warm, dry, intact. EXTREMITIES: Normal appearance, no pedal edema. NEURO: Alert and answering questions appropriately. PSYCH: Normal affect. Const Vital Signs: 03/11/25 17:58 03/11/25 18:35 03/11/25 19:12 Temperature 96.2 F L Temperature Source Temporal Pulse Rate 106 H 96 Respiratory Rate 16 18 Blood Pressure 140/91 H 157/104 H Blood Pressure Mean 107 121 Pulse Ox 99 99 Oxygen Delivery Method Room Air Room Air Room Air 03/11/25 20:00 03/11/25 21:00 03/11/25 21:52 Temperature 96.2 F L Temperature Source Pulse Rate 127 H 109 H 115 H Respiratory Rate 15 18 Blood Pressure 154/100 H 165/101 H 165/101 H Blood Pressure Mean 118 122 122 Pulse Ox 99 100 100 Oxygen Delivery Method Room Air Room Air <Dr. Adeel Newton MD - Last Filed: 03/11/25 21:54> Physical Exam Const Vital Signs: 03/11/25 17:58 03/11/25 18:35 03/11/25 19:12 Temperature 96.2 F L Temperature Source Temporal Pulse Rate 106 H 96 Respiratory Rate 16 18 Blood Pressure 140/91 H 157/104 H Blood Pressure Mean 107 121 Pulse Ox 99 99 Oxygen Delivery Method Room Air Room Air Room Air 03/11/25 20:00 03/11/25 21:00 03/11/25 21:52 Temperature 96.2 F L Temperature Source Pulse Rate 127 H 109 H 115 H Respiratory Rate 15 18 Blood Pressure 154/100 H 165/101 H 165/101 H Blood Pressure Mean 118 122 122 Pulse Ox 99 100 100 Oxygen Delivery Method Room Air Room Air [facility] <DAMIEN Holguin - Last Filed: 03/11/25 22:02> [facility] Narrative Medical decision making narrative: History of from: Patient and spouse 74-year-old female has had a few days of constant nonexertional chest pressure, weakness, today felt more weak at home. She has a history of A-fib and is not on anticoagulation due to 1 von Willebrand's. She is awake alert no distress. She is in A-fib between 90 to 105 bpm, the rest of her vitals are stable. Lungs are clear. Abdomen soft and nontender. Overall exam benign, no focal neurological deficits or weakness. CBC is unremarkable. Sodium is 138 similar to previous. Normal renal function. Serial troponins are negative and EKG is nonischemic. She did not require any rate controlling medications for A-fib and remains around the 100. UA negative for infection. I am not sure what caused her episode of generalized weakness earlier but she states now she actually feels better and she has been up multiple times ambulatory to the bathroom. She was discharged in stable condition. I have personally performed a face to face assessment of the patient and have reviewed the ABHI Note. I performed a substantive portion of the visit including all aspects of the following. My linda findings include: History is 74-year-old female says she has not felt well last several days with some atypical nonexertional chest pain. She denies any vomiting, diarrhea or fever. No dysuria. Has a history of von Willebrand's. History of A-fib. She is not on anticoagulation currently. Exam is [well-appearing 74-year-old female. Vital signs stable afebrile. at bedside. Pulse ox 99% on room air no hypoxia. No distress. Clinically looks well. H EENT exam pupils round react light. Mytrex members. Neck nontender no JVD. No lymphadenopathy. Lungs clear to auscultation bilaterally. Heart A-fib rate about 100 no murmur. Chest wall ribs nontender. Abdomen soft nontender. No peritoneal signs. Back nontender. Neurologically she is awake alert. Answer questions following commands. Moving all 4 extremities. 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 Normal dorsi plantarflexion. Nontender no edema. Very benign exam.] Medical Decision Making [74-year-old female history of A-fib and von Willebrand's. Has had malaise and atypical chest pain last several days. Exam benign. She undergo cardiac workup along with a urinalysis. Basically her workup was negative and should be discharged home with repeat exam at 9:45 PM she was doing well. They are comfortable with being discharged home with outpatient follow-up.] Other additions or changes: [None] History & Record Review Discussion w/independent historian: Patient and Family Additional record(s) reviewed:: Prior ED visit and Prior labs Lab Data Attestation: I reviewed the patient's lab results. Labs: Laboratory Results - last 24 hr 03/11/25 03/11/25 03/11/25 18:26 19:15 20:10 WBC 10.3 RBC 4.48 Hgb 13.2 Hct 40.4 MCV 90.2 MCH 29.5 MCHC 32.7 RDW Std Deviation 45.5 H RDW Coeff of Tony 13.7 Plt Count 291 MPV 10.5 Immature Gran % (Auto) 0.900 Neut % (Auto) 71.7 H Lymph % (Auto) 16.7 L [place] % (Auto) 9.5 Eos % (Auto) 0.4 Baso % (Auto) 0.8 Absolute Neuts (auto) 7.4 Absolute Lymphs (auto) 1.72 Nucleated RBC % 0 Sodium 130 L Potassium 4.4 Chloride 94 L Carbon Dioxide 23.4 Anion Gap 13 BUN 14 Creatinine 0.78 Estim Creat Clear Calc 54.08 Est GFR (MDRD) Non-Af 81 BUN/Creatinine Ratio 17.5 Glucose 135 H Calcium 9.6 Troponin T High Sens 8 Troponin T Hi Sens 2 Hr 6 Urine Color Yellow Urine Clarity Clear Urine pH 8.0 Ur Specific [place] 1.015 Urine Protein 30 H Urine Glucose (UA) Normal Urine Ketones Negative Urine Occult Blood Negative Urine Nitrite Negative Urine Bilirubin Negative Urine Urobilinogen Normal Ur Leukocyte Esterase 25 H Urine RBC 0-5 SEEN Urine WBC 0-5 SEEN Ur Squamous Epith Cells 0-5 SEEN Urine Bacteria 0 SEEN Urine Mucus 0 SEEN Radiography Diagnostic Testing: Clinical Impression(s) from Imaging Studies Chest X-Ray 03/11/25 18:35 IMPRESSION: No Acute Findings. Reading Location: [facility] EKG Initial EKG: Attestation: I personally reviewed and interpreted this EKG as follows: Interpretation: No Acute Injury Pattern and Atrial Fibrillation Comments: A-fib RVR at 104 bpm Left axis deviation No STEMI <Dr. Adeel Newton MD - Last Filed: 03/11/25 21:54> [facility] Narrative Medical decision making narrative: I have personally performed a face to face assessment of the patient and have reviewed the ABHI Note. I performed a substantive portion of the visit including all aspects of the following. My linda findings include: History is 74-year-old female says she has not felt well last several days with some atypical nonexertional chest pain. She denies any vomiting, diarrhea or fever. No dysuria. Has a history of von Willebrand's. History of A-fib. She is not on anticoagulation currently. Exam is [well-appearing 74-year-old female. Vital signs stable afebrile. at bedside. Pulse ox 99% on room air no hypoxia. No distress. Clinically looks well. H EENT exam pupils round react light. Mytrex members. Neck nontender no JVD. No lymphadenopathy. Lungs clear to auscultation bilaterally. Heart A-fib rate about 100 no murmur. Chest wall ribs nontender. Abdomen soft nontender. No peritoneal signs. Back nontender. Neurologically she is awake alert. Answer questions following commands. Moving all 4 extremities. 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 Normal dorsi plantarflexion. Nontender no edema. Very benign exam.] Medical Decision Making [74-year-old female history of A-fib and von Willebrand's. Has had malaise and atypical chest pain last several days. Exam benign. She undergo cardiac workup along with a urinalysis. Basically her workup was negative and should be discharged home with repeat exam at 9:45 PM she was doing well. They are comfortable with being discharged home with outpatient follow-up.] Other additions or changes: [None] Lab Data Lab results narrative: CBC shows a white count of 10 H&H 13 and 40. Platelets 291. Electrolytes show sodium 130 which she has had a low sodium before. Anion gap 13. Normal BUN and creatinine of 14 and 0.7. Glucose 135. Initial troponin 8. 2-hour troponin 6. UA negative. Chest x-ray chronic changes. EKG A-fib rate of 104. Labs: Laboratory Results - last 24 hr 03/11/25 03/11/25 03/11/25 18:26 19:15 20:10 WBC 10.3 RBC 4.48 Hgb 13.2 Hct 40.4 MCV 90.2 MCH 29.5 MCHC 32.7 RDW Std Deviation 45.5 H RDW Coeff of Tony 13.7 Plt Count 291 MPV 10.5 Immature Gran % (Auto) 0.900 Neut % (Auto) 71.7 H Lymph % (Auto) 16.7 L [place] % (Auto) 9.5 Eos % (Auto) 0.4 Baso % (Auto) 0.8 Absolute Neuts (auto) 7.4 Absolute Lymphs (auto) 1.72 Nucleated RBC % 0 Sodium 130 L Potassium 4.4 Chloride 94 L Carbon Dioxide 23.4 Anion Gap 13 BUN 14 Creatinine 0.78 Estim Creat Clear Calc 54.08 Est GFR (MDRD) Non-Af 81 BUN/Creatinine Ratio 17.5 Glucose 135 H Calcium 9.6 Troponin T High Sens 8 Troponin T Hi Sens 2 Hr 6 Urine Color Yellow Urine Clarity Clear Urine pH 8.0 Ur Specific [place] 1.015 Urine Protein 30 H Urine Glucose (UA) Normal Urine Ketones Negative Urine Occult Blood Negative Urine Nitrite Negative Urine Bilirubin Negative Urine Urobilinogen Normal Ur Leukocyte Esterase 25 H Urine RBC 0-5 SEEN Urine WBC 0-5 SEEN Ur Squamous Epith Cells 0-5 SEEN Urine Bacteria 0 SEEN Urine Mucus 0 SEEN Radiography Chest X-Ray - ED: 1 View, Read by ED Physician, Read by Radiologist, Normal, Heart, Lungs, Mediastinum, Bony Structures, No Acute Disease and Chronic Changes Diagnostic Testing: Clinical Impression(s) from Imaging Studies Chest X-Ray 03/11/25 18:35 IMPRESSION: No Acute Findings. Reading Location: [facility] Chest x-ray, portable, single view shows no acute abnormality. Normal cardiac silhouette. Normal lung troy. Interpreted by myself and the radiologist. Rhythm Strip Rhythm Strip: A-fib Rate: 104 Ectopy: None Discharge Plan Triage Chief Complaint: Chest Pain ED Midlevel Provider: Anusha Souza ED Provider: Adeel Newton Dx/Rx/DC Orders Clinical Impression: Chest pain, History of atrial fibrillation, Episode of generalized weakness Instructions: ED Weakness Uncertain Cause Prescriptions: No Action Complete Multivitamin Tablet 0.5 tab PO BID fluticasone propionate 50 mcg/actuation spray,suspension 2 spray INTRANASAL DAILY PRN (Reason: allergies) denosumab 60 mg/mL syringe 60 mg subcut [id number] Qty: 1 1RF acetaminophen 325 mg tablet 650 mg PO BID memantine 10 mg tablet 10 mg PO BID Qty: 60 7RF omeprazole 40 MG capsule 40 mg PO BID Patient Comments: gerd/acid reflux potassium chloride 20 mEq tablet,ER particles/crystals 20 meq PO DAILY cholecalciferol (vitamin D3) [Vitamin D3] 50 mcg (2,000 unit) Capsule 50 mcg PO DAILY metoprolol tartrate 50 mg tablet 50 mg PO BID diphenoxylate-atropine [Lomotil] 2.5-0.025 mg tablet 1 tab PO BID PRN (Reason: diarrhea) Qty: 30 1RF lamotrigine 25 mg tablet 50 mg PO BID Qty: 120 5RF Primary Care Provider: Lul Patel Referrals: Lul Patel MD [Primary Care Provider] - Activity Restrictions/Additional Instructions: Today your testing showed no signs of heart attack or life-threatening problems. I am not sure what caused your episode of generalized weakness. 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 Print Language: Khmer Disposition Disposition: Home, Self Care Discharge Date/Time: 03/11/25 21:52
--- OUTSIDE RECORDS SUMMARY | 2025-03-11 18:20 | XMS RPT_ITS | CCD ---
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 Robert Patel Primary Care Provider Dr. Adeel Newton Emergency Provider Dr. Darien George Admit Provider Dr. Darien George Attending Provider Dr. Darien George Other Provider Dr. Shelly Bailey Other Provider Dr. Shade Rick Attending Provider Dr. Jose Enrique Prince Attending Provider Dr. Darien George Referring Provider Dr. Shelly Bailey Attending Provider Dr. Robert Patel Referring Provider Dr. Robert Patel Other Provider [phone] Temo Horta Attending Provider Dr. Edy Mcneil Attending Provider Dr. Natan Giraldo Attending Provider Dr. Natan Giraldo Referring Provider Dr. Natan Giraldo Other Provider Haroon Patel MD Primary Care Provider Ajit PAEZ/RYAN, Nilay Unavailable Lina HEARSE DRIVER, HEARSE DRIVER-C Bridgette Attending Provider Dr. Dorian Mckeon Attending Provider Amanda, Dr. Jones Primary Care Provider Amanda, Dr. Jones Referring Provider Dr. Temo Horta Attending Provider Clarence, Dr. Azevedo Attending Provider Clarence, Dr. Azevedo Referring Provider Amanda, Dr. Jones Primary Care Provider Amanda, Dr. Jones Referring Provider Ewa, Dr. Snow Attending Provider Amanda, Dr. Jones Primary Care Provider Amanda, Dr. Jones Primary Care Provider Dr. Edy Mnceil Attending Provider Clarence, Dr. Azevedo Attending Provider Baddonichelle, Dr. Azevedo Referring Provider Dr. Robert Patel Referring Provider Amanda, Dr. Jones Primary Care Provider Clarence, Dr. Azevedo Attending Provider Badazra, Dr. Azevedo Referring Provider Dr. Edy Mcneil Attending Provider Dr. Robert Patel Primary Care Provider Baddonichelle, Dr. Azevedo Attending Provider Badazra, Dr. Azevedo Referring Provider Haroon Patel MD Primary Care Provider Edy Mcneil Dr. Robert Patel Primary Care Provider Clarence, Dr. Azevedo Attending Provider Clarence, Dr. Azevedo Referring Provider Dr. Robert Patel Primary Care Provider Dr. Roberto Carlos Lima Attending Provider Clarence, Dr. Azevedo Referring Provider Dr. Robert Patel Referring Provider Jon QUEZADA, PA Marlene Addison Attending Provider Dr. Robert Patel Primary Care Provider Clarence, Dr. Azevedo Attending Provider Clarence, Dr. Azevedo Referring Provider GAYLE MARTINEZ Primary Care Unavailable Amanda, Dr. Jones Primary Care Provider Clarence, Dr. Azevedo Attending Provider Clarence, Dr. Azevedo Referring Provider Dr. Robert Patel Referring Provider Dr. Dorian Mckeon Attending Provider Dr. Robert Patel Primary Care Provider Dr. Roberto Carlos Lima Attending Provider Clarence, Dr. Azevedo Referring Provider Dr. Robert Patel Primary Care Provider Dr. Roberto Carlos Lima Attending Provider Dr. Roberto Carlos Lima Referring Provider Dr. Robert Patel Primary Care Provider Dr. Robert Patel Referring Provider Dr. Roberto Carlos Lima Attending Provider Dr. Dorian Mckeon Attending Provider Haroon Patel MD Primary Care Provider Analilia Omer MD Unavailable Laith PICHARDO, Sherley Cazares Unavailable Suresh PICHARDO, Jose Enrique S Unavailable Jon MONTERO, Marlene Toussaint Unavailable AMANDA PICHARDO, DR PATIÑO Primary Care Physician Analilia Omer MD Unavailable SHERLEY HE Attending Unavailable HAROON PATEL Referring UnavailHAROON Thomas Primary Care UnavailDR HAROON Thomas MD Primary Care Wily OMER MD, ANALILIA Bailey Attending Unavailable Amanda PICHARDO, Dr. Patiño Primary Care Provider Amanda PICHARDO, Dr. Patiño Referring Provider [phone] King KYLEE, Dr. Alarcon Attending Provider Amanda PICHARDO, Dr. Patiño Attending Provider [phone] Dr. Roberto Carlos Lima MD Attending Provider AMANDA PICHARDO, DR PATIÑO Primary Care ANALILIA Perez MD Attending Unavailable Haroon Patel MD Primary Care Provider Nilay Fong MD Unavailable Yulia Mae MD, Osmin Unavailable Manan PICHARDO, Luis Miguel Cazares Unavailable Jaison Casanova MD Unavailable Amanda PICHARDO, Dr. Patiño Primary Care Provider Dr. Haroon Patel MD Referring Provider Clarence PICHARDO, Dr. Azevedo Referring Provider Haroon Patel Primary Care Unavailable Roberto Carlos Lima Attending Unavailable Roberto Carlos Lima Referring Unavailable Haroon Patel Primary Care Unavailable Haroon Patel Referring Unavailable Roberto Carlos Lima Attending Unavailable Haroon Patel Primary Care Unavailable Jose Enrique Prince Attending Unavailable Haroon Patel Referring Unavailable Inder Morel Attending Unavailable Inder Morel Consulting Unavailable Ranney, Christopher Primary Care Unavailable [facility], [facility] Primary Care Unavailable Ranney, Christopher Referring Unavailable Marlene Maurice Attending Unavail able Ranney, Christopher Primary Care Unavailable Ranney, Christopher Referring Unavailable Dorian Mckeon Attending Unavailable Baddour, Roberto Carlos Attending Unavailable Ranney, Christopher Primary Care Unavailable Baddour, Roberto Carlos Referring Unavailable Ranney, Christopher Primary Care Unavailable Baddour, Roberto Carlos Attending Unavailable Baddour, Roberto Carlos Referring Unavailable Baddour, Roberto Carlos Referring Unavailable Baddour, Roberto Carlos Attending Unavailable Ranney, [facility] Primary Care Unavailable Ranney, Christopher Primary Care Unavailable Baddour, Roberto Carlos Attending Unavailable Ranney, Christopher Referring Unavailable Ranney, [facility] Primary Care Unavailable Dorian Mckeon Attending Unavailable Ranney, Christopher Referring Unavailable Friend, Inder Attending Unavailable [place] Unavailable Ranney, [facility] Primary Care Unavailable Ranney, Christopher Referring Unavailable Ranney, Christopher Attending Unavailable Ranney, Christopher Referring Unavailable Ranney, Christopher Attending Unavailable [facility], [facility] Unavailable Ranney, [facility] Primary Care Unavailable Filomena Landa Referring Unavailable Filomena Landa Attending Unavailable Marlene Maurice Referring Unavail able Marlene Maurice Attending Unavail able Ranney, [facility] Primary Care Unavailable Ranney, Christopher Referring Unavailable Friend, Inder Attending Unavailable [place], [facility] Primary Care Unavailable Ranney, Christfredricker Attending Unavailable Ranney, [facility] Primary Care Unavailable Ranney, Christopher Referring Unavailable Ranney, Christopher Referring Unavailable Ranney, [facility] Primary Care Unavailable Marlene Maurice Attending Unavail able Ranney, Christopher Primary Care Unavailable Losdonichelle, Roberto Carlos Attending Unavailable Losdour, Roberto Carlos Referring Unavailable GALLASTEGUI CRESTANI, OSMIN Referring Un available BEKA MANUEL Attending Unavailable RANNEY, CHRISTOPHER B Primary Care Unavailabl e GALLASTEGUI CRESTANI, OSMIN Referring Un available BEKA MANUEL Attending Unavailable AMANDA, CHRISTOPHER B Primary Care Unavailabl e RANNEY, CHRISTOPHER B Primary Care Unavailabl e ANGELA GILMAN Attending Unavailable SELF, SELF Referring Unavailable RANNEY, CHRISTOPHER B Primary Care Unavailabl HAROON Jackson Referring [facility] WHIT Li Attending Unavailable BEKA MANUEL Referring Unavailable HAROON PATEL Primary Care [facility] leo Allergies Allergy Classification Reported Allergen(s) Allergy Type Date of Onset Reaction(s) Facility (10 sources) 6-Aminocaproic Acid Drug Allergy 2 Other [facility] [place] Work Phone: (20 sources) buPROPion; Translations: [BUPROPION] Drug Allergy 9 GI Upset [facility] Work Phone: (20 sources) Cephalexin; Translations: [CEPHALEXIN] Drug Allergy 9 GI Upset [facility] Work Phone: (20 sources) Codeine; Translations: [codeine] Drug Allergy 4 Nausea Only, Vomiting (disorder) [facility] Work Phone: (20 sources) DULoxetine; Translations: [DULOXETINE] Drug Allergy 9 Other: See Comments [facility] Work Phone: (20 sources) levETIRAcetam; Translations: [LEVETIRACETAM] Drug Allergy 9 Other: See Comments [facility] Work Phone: (20 sources) Morphine; Translations: [MORPHINE] Drug Allergy 0 Nausea Only, Unknown [facility] [place] Work Phone: (20 sources) Opioids - Morphine Analogues; Translations: [Opioids - Morphine Analogues] Allergy to substance 2 Hives [facility] (10 sources) sassafrass Propensity to adverse reactions 2 Nausea/Vom/Sydni rrhea [facility] [place] Work Phone: (12 sources) desmopressin; Translations: [DESMOPRESSIN] Drug Allergy 4 Itching, Nausea Only, Unknown [facility] (8 sources) Sulfonamides (Antibiotic) Propensity to adverse reactions to drug 0 Itching, Nausea Only [facility] (20 sources) Sotalol; Translations: [SOTALOL] Drug Allergy 2 Other: See Comments, Shortness of Breath [facility] Work Phone: (20 sources) 6-Aminocaproic Acid; Translations: [AMINOCAPROIC ACID] Drug Allergy 9 Other: See Comments [facility] Work Phone: (17 sources) Food Allergies: Uncoded; Translations: [Food Allergies: Uncoded] Propensity to adverse reactions 2 Nausea/Vom/Sydni rrhea [facility] [place] Comment on above: SASSAFRASS (4 sources) Etanercept; Translations: [ETANERCEPT] Drug Allergy 9 Other: See Comments [facility] Work Phone: (4 sources) Sulfonamides (Antibiotic); Translations: [SULFA (SULFONAMIDE ANTIBIOTICS)] Drug Allergy 0 Itching, GI Upset [facility] Work Phone: (4 sources) Sassafras Oil; Translations: [SASSAFRAS OIL] Propensity to adverse reactions to drug 2 Unknown [facility] (2 sources) Citric Acid Drug Allergy 5 sore throat [facility] [place] (2 sources) Sotalol Drug Allergy 2 Shortness of Breath, [facility]ina, Fatigue, [facility] (1 source) 6-Aminocaproic Acid Drug Allergy 5 [facility] [place] Repository (1 source) buPROPion Drug Allergy 5 [facility] [place] Repository (1 source) Cephalexin Drug Allergy 5 [facility] [place] Repository (1 source) Citric Acid Drug Allergy 5 [facility] [place] Repository (1 source) Codeine Drug Allergy 5 [facility] [place] Repository (1 source) DULoxetine Drug Allergy 5 [facility] [place] Repository (1 source) levETIRAcetam Drug Allergy 5 [facility] [place] Repository (1 source) Morphine Drug Allergy 5 [facility] [place] Repository (1 source) Sotalol Drug Allergy 5 [facility] [place] Repository Medications Current Medications Medication Drug Class(es) Dates Sig (Normalized) Sig (Original) 6-aminocaproic acid 250 mg/ml oral solution (3 sources) Antifibrinolytic Agent Start: 04-24-2022 Aminocaproic Acid (Amicar) 0.25 GM/ML Solution Take 3000 mg every 6 hours as directed and as needed for bleeding 236.5 mL 04/24/2022 Active Start: 04-24-2022 End: 08-19-2022 aminocaproic acid (AMICAR) 2 50 mg/mL (25 %) solution Take 3000 mg every 6 hours as directed and as needed for bleeding 0 04/24/2022 08/19/2022 Discontinued (Other) Comment on above: Take 3000 mg every 6 hours as directed and as needed for bleeding 8 hr acetaminophen 650 mg extended release oral tablet (20 sources) Start: 12-31-2024 Tylenol 8 Hour 650 mg oral tablet, extended release Dose : 1,300 mg = 2 tab(s), Oral, q8h, PRN as needed for fever, # 100 tab(s), 0 Refill(s) Start Date: 12/31/24 Status: Ordered Quantity: 100.0 Unit: tab(s) Repeat number: 1 Start: 03-26-2024 take 2 tablets by mo uth twice daily Acetaminophen 325 mg tablet Active 650 mg PO TWICE A DAY March 26, 2024 10:20am Pain Start: 05-15-2022 End: 03-26-2024 take 1 tablet by mouth twice daily as needed for pain Acetaminophen 325 mg tablet Discontinued 325 mg PO TWICE A DAY as needed for Pain May 15, 2022 12:00am March 26, 2024 10:22am Start: 02-21-2022 End: 02-21-2022 take 325 mg by mouth twice daily 325 mg, Oral, 2 TIMES DAILY, First dose on Ida 02/21/22 at 0315, Until Discontinued Maximum dose of acetaminophen is 4000 mg from all sources in 24 hours. Start: 02-14-2022 acetaminophen (TYLENOL) tablet 650 mg Start: 02-03-2020 End: 05-15-2022 take 1 tablet by mouth at bedtime Acetaminophen (Tylenol Extra Strength) 500 mg tablet Discontinued 500 mg PO AT BEDTIME February 03, 2020 12:00am May 15, 2022 1:24pm PAIN Start: 05-21-2019 End: 02-03-2020 Acetaminophen 325 MG capsule Discontinued 325 mg PO TWICE A DAY May 21, 2019 12:00am February 03, 2020 10:38am 1 in morning and 2 at night Comment on above: Take 500 mg by mouth every 6 hours as needed. apixaban 5 mg oral tablet (3 sources) Factor Xa Inhibitor Start: 05-01-20 End: 08-19-19 23 apixaban 5 MG tablet Indications: Atrial Fibrillation Take 1 tablet by mouth every 12 hours. Take one tablet PO [id number] for four weeks then STOP. 30 tablet 05/01/2022 Active Comment on above: Take 5 mg by mouth. atorvastatin 20 mg oral tablet (3 sources) HMG-CoA Reductase Inhibitor Start: 05-01-20 End: 08-19-19 take 1 tablet by mouth at bedtime atorvastatin 20 MG tablet Take 1 tablet by mouth at bedtime. 30 tablet 5 05/01/2022 Active Comment on above: Take 1 tablet by ana th daily at bedtime. atropine sulfate 0.025 mg / diphenoxylate hydrochloride 2.5 mg oral tablet (2 sources) Anticholinergic, Cholinergic Muscarinic Antagonist, Antidiarrheal Start: 04-22-20 Diphenoxylate-Atropi ne (Lomotil) 2.5-0.025 mg tablet Active 1 {tbl} PO TWICE A DAY as needed for diarrhea 02 09April 22, 2024 12:00am CALCIUM CARBONATE/VITAMIN D2 (CALCIUM + VITAMIN D ORAL) (3 sources) CALCIUM CARBONATE/VITAMIN D2 (CALCIUM + VITAMIN D ORAL) Take 2 teaspoonsful by mouth once daily. Active CALCIUM CARBONAT E/VITAMIN D2 (CALCIUM + VITAMIN D ORAL) Take 2 teaspoonsful by mouth once daily. 0 Active Comment on above: Take 2 teaspoonsful by mouth once daily. cholecalciferol 0.05 mg oral capsule (20 sources) Vitamin D Start: take 1 capsule by mouth once daily Cholecalciferol (Vitamin D3) (Vitamin D3) 50 mcg (2,000 unit) Capsule Active 50 ug PO DAILY October 30, 2021 12:00am Start: 05-21-2019 End: 01-29-2021 take 4000 [IU] by mouth once daily Cholecalciferol (Vitamin D3) 500 UNIT/5 ML liquid Discontinued 4000 U PO DAILY May 21, 2019 12:00am January 29, 2021 10:24am cyanocobalamin, vitamin B-12 , (VITAMIN B-12 INJECTION) (3 sources) cyanocobalamin, vitamin B-12, (VITAMIN B-12 INJECTION) by INJECTION(UNSPECIFIED PARENTERAL ROUTES) route once every month. Active cyanocobalamin, vitamin B-12, (VITAMIN B-12 INJECTION) by INJECTION(UNSPECIFIED PARENTERAL ROUTES) route once every month. 0 Active Comment on above: by INJECTION(UNSPECI FIED PARENTERAL ROUTES) route once every month. donepezil hydrochloride 5 mg oral tablet (20 sources) Start: 09-25-2022 donepezil (ARICEPT) 5 mg tablet Take 10 mg by mouth. 09/25/2022 Active Start: 09-25-2022 End: 01-27-2023 take 1 tablet by mouth once daily at bedtime Donepezil 10 mg tablet Discontinued 10 mg PO AT BEDTIME 30 5 September 25, 2022 1:00am January 27, 2023 2:16pm Begin after completing one month of treatment of donepezil 5mg nightly Start: 09-25-2022 End: 01-27-2023 take 1 tablet by mouth at bedtime Donepezil 5 mg tablet Discontinued 5 mg PO AT BEDTIME 30 0 September 25, 2022 1:00am January 27, 2023 2:17pm fluticasone propionate 0.05 mg/actuat metered dose nasal spray (20 sources) Corticosteroid Start: 07-20-2020 End: 05-15-2022 Fluticasone Propionate 50 mcg/actuation spray,suspension Active 2 NMA INTRANASAL DAILY as needed for allergies May 15, 2022 1:27pm Start: 07-20-2020 End: 05-15-2022 Fluticasone Propionate Activ e 2 SPRAY INTRANASAL DAILY May 15, 2022 12:27pm Start: 05-21-2019 End: 02-03-2020 Fluticasone Propionate 1 SPR AY spray,suspension Discontinued 2 NMA NASAL DAILY May 21, 2019 12:00am February 03, 2020 10:46am Start: 05-21-2019 End: 02-03-2020 Fluticasone Propionate Disco ntinued 2 SPRAY NASAL DAILY May 20, 2019 11:00pm February 03, 2020 9:46am furosemide 20 mg oral tablet (3 sources) Loop Diuretic Start: 03-06-2022 End: 08-19-2022 take 1 tablet by mouth once daily furOSEmide (Lasix) 20 MG tablet Indications: Dyspnea on exertion Take 1 tablet by mouth daily. 30 tablet 11 03/06/2022 Active Comment on above: Take 1 tablet by ana once daily. hypromellose 3 mg/ml ophthalmic solution (3 sources) Start: 05-31-2004 GENTEAL EYE OPS (1) one drop in each eye 1-2 times daily. 0 05/31/2004 Active Comment on above: (1) one drop in each eye 1-2 times daily. lamoTRIgine 25 mg oral tablet (20 sources) Mood Stabilizer, Anti-epileptic Agent Start: 12-31-2024 lamoTRIgine 25 mg oral tablet Dose : 25 mg = 1 tab(s), Oral, BID, # 60 tab(s), 0 Refill(s) Start Date: 12/31/24 Status: Ordered Quantity: 60.0 Unit: tab(s) Repeat number: 1 Start: 09-25-2022 End: 12-16-2024 take 2 tablets by mouth twice daily Lamotrigine 25 mg tablet Discontinued 50 mg PO TWICE A DAY 120 3 April 20, 2024 4:49pm July 06, 2024 11:07am Start: 09-25-2022 End: 07-03-2023 take 50 mg by mouth twice daily Lamotrigine Discontinu ed 50 MG PO TWICE A DAY 120 February 25, 2023 4:49pm July 03, 2023 2:36pm Start: 05-15-2022 End: 09-25-2022 take 1 tablet by mouth twice daily Lamotrigine 25 mg tablet Discontinued 25 mg PO TWICE A DAY May 15, 2022 1:27pm September 25, 2022 10:11am Start: 03-02-2022 End: 05-15-2022 take 2 tablets by mouth twice daily Lamotrigine 25 mg tablet Discontinued 50 mg PO TWICE A DAY 120 March 02, 2022 8:42pm May 15, 2022 1:28pm Start: 03-02-2022 End: 05-15-2022 take 50 mg by mouth twice daily Lamotrigine Discontinu ed 50 MG PO TWICE A DAY 120 March 02, 2022 7:42pm May 15, 2022 12:28pm Start: 02-21-2022 End: 02-21-2022 take 50 mg by mouth every twelve hours 50 mg, Oral, EVERY 12 HOURS, First dose on Ida 02/21/22 at 0345, Until Discontinued Start: 12-14-2021 End: 03-02-2022 take 1 tablet by mouth twice daily Lamotrigine 25 mg tablet Discontinued 25 mg PO TWICE A DAY December 14, 2021 11:54am March 02, 2022 8:43pm Start: 02-01-2021 End: 12-14-2021 take 2 tablets by mouth twice daily Lamotrigine 25 mg tablet Discontinued 50 mg PO TWICE A DAY 120 2 November 06, 2021 8:13am December 14, 2021 11:55am Start: 07-20-2020 End: 02-01-2021 take 1 tablet by mouth twice daily, then take 0.5 tablet by mouth twice daily Lamotrigine 25 mg tablet Discontinued 0 PO TWICE A DAY 90 1 November 13, 2020 3:08pm February 01, 2021 6:14pm one to qyo-ptg-o-half tablets PO twice a day Start: 05-18-2020 End: 07-20-2020 take 2 tablets by mouth twice daily Lamotrigine 25 mg tablet Discontinued 50 mg PO TWICE A DAY 120 2 May 18, 2020 4:34pm July 20, 2020 3:47pm Start: 05-18-2020 End: 12-14-2021 take 50 mg by mouth twice daily Lamotrigine Discontinu ed 50 MG PO TWICE A DAY 120 November 06, 2021 7:13am December 14, 2021 10:55am Start: 04-25-2020 End: 05-18-2020 take 1 tablet by mouth twice daily Lamotrigine 25 mg tablet Discontinued 25 mg PO TWICE A DAY 60 2 April 25, 2020 4:10pm May 18, 2020 4:35pm Start: 04-25-2020 End: 04-25-2020 take 1 tablet by mouth once daily Lamotrigine 25 mg tablet Discontinued 25 mg PO DAILY April 25, 2020 12:00am April 25, 2020 4:10pm Comment on above: Take 25 mg by mouth. memantine hydrochloride 10 mg oral tablet (17 sources) I-wbptyf-L-aspartate Receptor Antagonist Start: End: take 1 tablet by mouth twice daily Memantine 10 mg tablet Active 10 mg PO TWICE A DAY 60 7 December 23, 2024 10:35am Start: 07-05-2024 End: 09-10-2024 take 1 tablet by mouth once daily, then take 1 tablet by mouth twice daily, then take 1 tablet by mouth once daily in the morning, then take 2 tablets by mouth once daily in the evening Memantine 5 mg tablet Discontinued 5 mg PO .COMPLEX 42 21 July 05, 2024 1:00am July 25, 2024 1:00am July 26, 2024 1:10am 1 tablet PO daily for 1 week then 1 tablet BID for one week then 1 tablet qAM and two tablets qPM for 1 week Start: 03-02-2024 End: 04-12-2024 take 1 capsule by mouth once daily Memantine 14 mg capsule,sprinkle,ER 24hr Discontinued 14 mg PO DAILY 7 March 02, 2024 12:00am April 12, 2024 9:46am Week #2 Start: 03-02-2024 End: 04-12-2024 take 1 capsule by mouth once daily Memantine 21 mg capsule,sprinkle,ER 24hr Discontinued 21 mg PO DAILY 7 March 02, 2024 12:00am April 12, 2024 9:46am Week #3 Start: 03-02-2024 End: 04-12-2024 take 1 capsule by mouth once daily Memantine 28 mg capsule,sprinkle,ER 24hr Discontinued 28 mg PO DAILY 30 March 02, 2024 12:00am April 12, 2024 9:46am Week #4 and thereafter Start: 03-02-2024 End: 04-12-2024 take 1 capsule by mouth once daily Memantine 7 mg capsule,sprinkle,ER 24hr Discontinued 7 mg PO DAILY 7 March 02, 2024 12:00am April 12, 2024 9:46am Week #1 metoprolol tartrate 50 mg oral tablet (20 sources) beta-Adrenergic Liu Start: 05-15-2022 take 1 tablet by mouth twice daily Metoprolol Tartrate 50 mg tablet Active 50 mg PO TWICE A DAY May 15, 2022 1:27pm Start: 05-13-2022 End: 09-10-2024 take 1 tablet by mouth once daily metoprolol succinate 50 MG tablet XL Take 1 tablet by mouth daily. 90 tablet 3 05/13/2022 Active Start: 02-21-2022 End: 02-21-2022 take 75 mg by mouth every twelve hours 75 mg, Oral, EVERY 12 HOURS, First dose on Ida 02/21/22 at 0315, Until Discontinued Start: 10-30-2021 metoprolol 50 MG tab regular release Take by mouth. 0 10/30/2021 Active Start: 10-30-2021 End: 05-15-2022 Metoprolol Tartrate 50 mg ta blet Discontinued 75 mg PO TWICE A DAY October 30, 2021 12:00am May 15, 2022 1:28pm Start: 10-30-2021 End: 05-15-2022 take 75 mg by mouth twice daily Metoprolol Tartrate Di scontinued 75 MG PO TWICE A DAY October 29, 2021 11:00pm May 15, 2022 12:28pm Comment on above: Take 1 tablet by ana once daily. Multiple Vitamins-Minerals (MULTIVITAMIN WOMEN PO) (8 sources) take 0.5 tablet by mouth twice daily Multiple Vitamins-Minerals (MULTIVITAMIN WOMEN PO) Take 0.5 tablets by mouth 2 times daily. Active take 0.5 tablet by mouth once da ryder Multiple Vitamins-Minerals (MULTIVITAMIN WOMEN PO) Take 0.5 tablets by mouth daily. 0 Active Multivitamin,Sd-Sozc-Fkumbiu s (Complete Multivitamin) tablet (20 sources) Start: 05-31-2019 take 1 tablet by mouth once daily Multivitamin,Bg-Ytpm-Kjhlzuwd (Complete Multivitamin) tablet Active 1 TABLET PO DAILY May 31, 2019 9:38am Start: 05-31-2019 Multivitamin,T t-Yxjk-Lnglimql (Complete Multivitamin) tablet Active 0.5 {tbl} PO TWICE A DAY May 31, 2019 12:00am Start: 05-31-2019 take 1 tablet by ana th once daily Multivitamin,Hm-Ozia-Bbmoayrr (Complete Multivitamin) tablet Active 1 TABLET PO DAILY May 30, 2019 11:00pm Start: 05-31-2019 take 1 tablet by ana th once daily Multivitamin,Mg-Ftkz-Rmdqbbda (Complete Multivitamin) tablet Active 1 TABLET PO DAILY May 31, 2019 12:00am omeprazole 40 mg delayed release oral capsule (20 sources) Proton Pump Inhibitor Start: 05-18-2016 take 1 capsule by mouth twice daily Omeprazole 40 MG capsule Active 40 mg PO TWICE A DAY May 18, 2016 12:00am gerd/acid reflux take 1 capsule by mouth once yaniv ly omeprazole (PRILOSEC) 40 mg capsule Take 40 mg by mouth once daily. Active Comment on above: Take 40 mg by mouth once daily. Potassium (8 sources) take 20 mEq by mouth twice daily POTASSIUM PO Take 20 mEq by mouth 2 times daily. Active take 20 mEq by mouth twice daily POTASSIUM PO Take 20 mEq by mouth 2 times daily. 0 Active microencapsulated potassium chloride 20 meq extended release oral tablet (20 sources) Start: 05-15-2022 take 1 tablet by mouth once daily Potassium Chloride 20 mEq tablet,ER particles/crystals Active 20 meq PO DAILY May 15, 2022 1:27pm supplement Start: 06-26-2018 End: 05-15-2022 take 1 tablet by mouth twice daily Potassium Chloride 20 MEQ tablet,ER particles/crystals Discontinued 20 meq PO TWICE A DAY June 26, 2018 1:00am May 15, 2022 1:28pm supplement Start: 08-15-2017 End: 02-17-2018 take 1 tablet by mouth twice daily Potassium Chloride 20 MEQ tablet Discontinued 20 meq PO TWICE A DAY 10 0 August 15, 2017 1:00am February 17, 2018 3:09am tranexamic acid 650 mg oral tablet (2 sources) Antifibrinolytic Agent Start: 01-13-2023 take 2 tablets by mouth every eight hours as needed tranexamic acid 650 MG tablet Take 2 tablets by mouth every 8 hours as needed. 40 tablet 1 01/13/2023 Active Completed/Discontinued Medications Medication Drug Class(es) Dates Sig (Normalized) Sig (Original) [id number] 200 actuat albuterol 0.09 mg/actuat metered dose inhaler (20 sources) beta2-Adrenergic Agonist Start: 05-21-2019 End: 02-03-2020 Albuterol Sulfate 1 PUFF inhaler Discontinued 2 NMA INHALATION EVERY 4 HOURS NEEDED as needed for Shortness Of Breath May 21, 2019 12:00am February 03, 2020 10:47am Start: 05-21-2019 End: 02-03-2020 take 1 puff(s) by inhalation every four hours as needed Albuterol Sulfate Discontinued 2 PUFF INHALATION EVERY 4 HOURS NEEDED May 20, 2019 11:00pm February 03, 2020 9:47am alendronic acid 10 mg oral tablet (20 sources) Bisphosphonate Start: 05-31-2019 End: 02-21-2022 take 1 tablet by mouth once daily Alendronate 10 mg tablet Discontinued 10 mg PO DAILY May 31, 2019 12:00am February 15, 2020 10:56am aluminum hydroxide 40 mg/ml / magnesium hydroxide 40 mg/ml / simethicone 4 mg/ml oral suspension (1 source) Start: 02-21-2022 End: 02-21-2022 take 30 mL by mouth every six hours as needed alum/mag hydrox.-simethicone oral suspension 30 mL amantadine hydrochloride 100 mg oral capsule (3 sources) Influenza A M2 Protein Inhibitor Start: 11-03-2019 End: 02-21-2022 amantadine 100 MG capsule armodafinil 150 mg oral tablet (1 source) End: 08-19-2022 take 1 tablet by mouth once daily armodafinil (NUVIGIL) 150 mg tab Take 150 mg by mouth once daily. 0 08/19/2022 Discontinued (Other) Comment on above: Take 150 mg by mouth once daily. busPIRone hydrochloride 5 mg oral tablet (20 sources) Start: 02-01-2021 End: 04-05-2021 take 1 tablet by mouth twice daily Buspirone 5 mg tablet Discontinued 5 mg PO TWICE A DAY 60 2 February 01, 2021 12:00am April 05, 2021 7:42pm Cholestyramine Resin (2 sources) Bile Acid Sequestrant Start: 03-01-2024 End: 03-03-2024 take 1 dose by mouth once daily Cholestyramine (With Sugar) 4 gram powder Discontinued 4 g PO DAILY 348.6 90 2 March 01, 2024 12:00am March 03, 2024 10:58am administer w/meal; avoid other meds within 1hr before or 4-6hr after dose Start: 03-01-2024 End: 03-03-2024 take 1 dose by mouth once daily Cholestyramine (With Sugar) 4 gram powder Discontinued 4 g PO DAILY 348.6 90 March 01, 2024 12:00am March 03, 2024 10:58am administer w/meal; avoid other meds within 1hr before or 4-6hr after dose 1 ml denosumab 60 mg/ml prefilled syringe (20 sources) RANK Ligand Inhibitor Start: 01-29-2021 End: 01-27-2023 Denosumab 60 mg/mL syringe Discontinued 60 mg SC every 6 months October 30, 2021 2:20pm January 27, 2023 2:16pm BONES Start: 01-29-2021 End: 01-27-2023 Denosumab Discontinued 60 MG SC every 6 months October 30, 2021 1:20pm January 27, 2023 1:16pm 1 ml diphenhydrAMINE hydrochloride 50 mg/ml cartridge (1 source) Histamine-1 Receptor Antagonist Start: 02-14-2022 End: 02-14-2022 diphenhydrAMINE (BENADRYL) injection 50 mg doxepin hydrochloride 50 mg oral capsule (1 source) Tricyclic Antidepressant End: 08-19-2022 take 1 capsule by mouth once daily at bedtime doxepin 50 mg capsule Take 50 mg by mouth daily at bedtime. 0 08/19/2022 Discontinued (Other) Comment on above: Take 50 mg by mouth daily at bedtime. efmoroctocog suzanna 1 unt injection (20 sources) Start: 05-15-2022 End: 09-25-2022 take 1000 [IU] rectal route once Factor Viii Rec,Fc Fusion Prot (Eloctate) 1,000 unit recon soln Discontinued 1000 U .ROUTE .COMPLEX May 15, 2022 12:00am September 25, 2022 9:46am 1,000 units IV every Fri and ; Start: 04-25-2022 Antihem Fact, BDD-rFVIIIFc, (Eloctate) 1000 units Recon Soln 1,475 Units by Intravenous route every Friday and . +/- 10%. Disp: NS flushes % ancillary supplies 8 Each 6 04/25/2022 Active Start: 04-25-2022 End: 08-19-2022 antihemophilic factor VIII, Fc fusion protein (ELOCTATE) 250 unit injection Inject 1,475 Units intravenously. 0 04/25/2022 08/19/2022 Discontinued (Other) Start: 03-14-2022 Antihem Fact, BDD-rFVIIIFc, (Eloctate) 1000 units Recon Soln 900 Units by Intravenous route every Friday and . +/- 10%. Disp: NS flushes % ancillary supplies 8 Each 6 03/14/2022 Active Comment on above: Inject 1,475 Units i ntravenously. 1 ml etanercept 50 mg/ml auto-injector (1 source) Tumor Necrosis Factor Liu End: 08-19 inject 50 mg by subcutaneous injection every week Etanercept (ENBREL SURECLICK) 50 mg/mL (0.98 mL) pnij Inject subcutaneously Once Weekly with Dialysis. 0 08/19/2022 Discontinued (Other) Comment on above: Inject subcutaneousl y Once Weekly with Dialysis. hydrocortisone 100 mg injection (1 source) Corticosteroid Start : 02-14 End: 02-14 hydrocortisone sodium succinate PF (SOLU-CORTEF) injection 100 mg hydroxychloroquine sulfate 200 mg oral tablet (1 source) Antimalarial, Antirheumatic Agent End: 08-19 take 2 tablets by mouth once daily hydrOXYchloroQUINE (PLAQUENIL) 200 mg tablet Take 400 mg by mouth once daily. 0 08/19/2022 Discontinued (Other) Comment on above: Take 400 mg by mouth once daily. iron dextran (INFED) 1,000 mg in sodium chloride 0.9%, with overfill 570 mL (total volume) IVPB (1 source) Start : 02-14 End: 02-14 iron dextran (INFED) 1,000 mg in sodium chloride 0.9%, with overfill 570 mL (total volume) IVPB iron dextran (INFED) 25 mg in sodium chloride 0.9%, with overfill 60.5 mL (total volume) IVPB (1 source) Start : 02-14 End: 02-14 iron dextran (INFED) 25 mg in sodium chloride 0.9%, with overfill 60.5 mL (total volume) IVPB lacosamide 10 mg/ml oral solution (20 sources) Anti-epileptic Agent Start : 02-02 End: 04-25 Lacosamide 10 mg/mL solution Discontinued 50 mg PO February 03, 2020 12:00am April 25, 2020 4:10pm Start: 02-03-2020 End: 04-25-2020 Lacosamide Discontinued 50 M G PO February 02, 2020 11:00pm April 25, 2020 3:10pm Start: 06-30-2018 End: 02-03-2020 take 1 tablet by mouth twice daily Lacosamide 50 MG tablet Discontinued 50 mg PO TWICE A DAY January 14, 2019 2:22pm February 03, 2020 10:46am 50mg BID through 07/02/18. End: 02-21-2022 Lacosamide (VIMPAT PO) Take by mouth 2 times daily. 5 mg in the morning and 7.5 mg at nighttime 0 02/21/2022 Discontinued (Stop Taking at Discharge) Lacosamide (VIMP AT PO) Take by mouth 2 times daily. 5 mg in the morning and 7.5 mg at nighttime 0 Active Leucovorin (2 sources) Folate Analog End: 09-10-2024 take 3 tablets by mouth every week LEUCOVORIN CALCIUM ORAL Take 5 mg by mouth. 3 tablets once weekly 09/10/2024 Discontinued (Other) take 3 tablets by mouth every we ek LEUCOVORIN CALCIUM ORAL Take 5 mg by mouth. 3 tablets once weekly 0 Active Comment on above: Take 5 mg by mouth. 3 tablets once weekly lisinopril 10 mg oral tablet (1 source) Angiotensin Converting Enzyme Inhibitor Start: 05-31-20 04 End: 08-19-19 23 LISINOPRIL 10MG TABLET once daily. 0 05/31/2004 08/19/2022 Discontinued (Other) Comment on above: once daily. 0.15 ml methotrexate 50 mg/ml auto-injector (1 source) Folate Analog Metabolic Inhibitor End: 08-19-19 methotrexate, PF, 7.5 mg/0.15 mL atIn Inject subcutaneously Once Weekly with Dialysis. 0 08/19/2022 Discontinued (Other) Comment on above: Inject subcutaneousl y Once Weekly with Dialysis. multivitamin w/ minerals (THERAPEUTIC-M) tablet 1 tablet (1 source) Start: 02-22-20 End: 02-22-20 take 1 tablet by mouth once daily 1 tablet, Oral, DAILY, First dose on Ida 02/21/22 at 0900, Until Discontinued pantoprazole 40 mg delayed release oral tablet (1 source) Proton Pump Inhibitor Start: 02-22-20 End: 02-22-20 take 40 mg by mouth every twelve hours 40 mg, Oral, EVERY 12 HOURS, First dose on Ida 02/21/22 at 0315, Until Discontinued, Indications: Continuation of Home Therapy, GERD polyvinyl alcohol 0.014 ml/ml / povidone 6 mg/ml ophthalmic solution (1 source) Start: 02-22-20 End: 02-22-20 Polyvinyl Alcohol-Povidone PF (REFRESH) ophthalmic solution 2 drop predniSONE 10 mg oral tablet (1 source) End: 08-19-19 take 1 tablet by mouth once daily predniSONE 10 mg tablet Take 10 mg by mouth once daily. For three to five days with flare ups. 0 08/19/2022 Discontinued (Other) Comment on above: Take 10 mg by mouth once daily. For three to five days with flare ups. 250 ml sodium chloride 9 mg/ml injection (1 source) Start: 02-15-20 End: 02-15-20 sodium chloride 0.9% IV solution 500 mL 24 hr traMADol hydrochloride 100 mg extended release oral capsule (20 sources) Opioid Agonist Start: 05-18-20 End: 05-18-20 take 100 mg by mouth three times daily Tramadol 100 MG Cpbp.25.75 Discontinued 100 mg PO THREE TIMES A DAY May 18, 2016 12:00am May 18, 2016 8:36am End: 08-19-2022 take 1 tablet by mouth every six hours as needed traMADOL 50 mg tablet Take 50 mg by mouth every 6 hours as needed. 0 08/19/2022 Discontinued (Other) Comment on above: Take 50 mg by mouth every 6 hours as needed. 24 hr venlafaxine 75 mg extended release oral capsule (1 source) Serotonin and Norepinephrine Reuptake Inhibitor End: 023 take 1 capsule by mouth once daily venlafaxine ER (EFFEXOR XR) 75 mg 24 hr capsule Take 75 mg by mouth once daily. 0 08/19/2022 Discontinued (Other) Comment on above: Take 75 mg by mouth once daily. vitamin b12 1 mg/ml injectable solution (4 sources) Vitamin B12 Start: 021 End: 021 inject 1000 ug by intramuscular injection once cyanocobalamin (vitamin B-12) 1,000 mcg/mL injection solution Discontinued 1000 MCG IM ONCE 1 April 05, 2021 2:59pm April 05, 2021 4:38pm Problems Active Problems Problem Classification Problem Date Documented Da te Episodic/Chronic Anxiety disorders (20 sources) Anxiety; Translations: [Anxiety disorder, unspecified] Onset: 3 Chronic Cardiac dysrhythmias (20 sources) Paroxysmal atrial fibrillation; Translations: [Paroxysmal atrial fibrillation] Onset: 2 Chronic Coagulation and hemorrhagic disorders (20 sources) von Willebrand disorder; Translations: [Von Willebrand's disease] Onset: 4 Chronic Coagulation and hemorrhagic disorders (1 source) Bleeds easily; Translations: [Hemorrhagic condition, unspecified] Episodic Deficiency and other anemia (12 sources) Iron deficiency anemia due to blood loss; Translations: [Iron deficiency anemia secondary to blood loss (chronic)] Onset: 2 Chronic Deficiency and other anemia (1 source) Iron deficiency anemia secondary to blood loss (chronic); Translations: [Iron deficiency anemia due to chronic blood loss] Onset: 3 Chronic Delirium, dementia, and amnestic and other cognitive disorders (20 sources) Dementia; Translations: [Unspecified dementia without behavioral disturbance] Onset: 5 09-25-2022 Chronic E Codes: Fall (20 sources) Accidental fall ; Translations: [Fall on same level from slipping, tripping and stumbling without subsequent striking against object, initial encounter] 02-23-2022 Episodic Epilepsy; convulsions (20 sources) Epilepsy; Translations: [Epilepsy, unspecified, not intractable, without status epilepticus] Onset: 3 Chronic Epilepsy; convulsions (20 sources) Seizure; Translations: [Unspecified convulsions] 03-28-2019 Episodic Esophageal disorders (20 sources) Gastroesophageal reflux disease; Translations: [Gastro-esophageal reflux disease without esophagitis] Onset: 3 08-19-2022 Chronic Essential hypertension (20 sources) Essential hypertension; Translations: [Essential (primary) hypertension] Onset: 2 Chronic Comment on above: CONTROLLED ON MED Hepatitis (2 sources) Chronic hepatitis C; Translations: [Chronic viral hepatitis C] Onset: 3 08-08-2024 Chronic Hepatitis (20 sources) Viral hepatitis C; Translations: [Unspecified viral hepatitis C without hepatic coma] 12-12-2021 Episodic Comment on above: treated Immunizations and screening for infectious disease (1 source) Patient encounter status; Translations: [Encounter for screening for other viral diseases] Episodic Influenza (20 sources) Influenza due to Influenza A virus; Translations: [Influenza due to other identified influenza virus with other respiratory manifestations] 12-12-2021 Episodic Malaise and fatigue (1 source) Chronic fatigue, unspecified; Translations: [Chronic fatigue, unspecified] Onset: 5 Chronic Malaise and fatigue (20 sources) Fatigue; Translations: [Other fatigue] Episodic Miscellaneous mental health disorders (20 sources) Dissociative convulsions; 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 Nutritional deficiencies (1 source) Vitamin D deficiency, unspecified; Translations: [Vitamin D deficiency, unspecified] Onset: 5 Chronic Osteoporosis (20 sources) Osteoporosis; Translations: [Age-related osteoporosis without current pathological fracture] Onset: 3 12-12-2021 Chronic Other circulatory disease (20 sources) Low blood pressure; Translations: [Other hypotension] 01-15-2019 Episodic Other circulatory disease (20 sources) H/O: atrial fibrillation; Translations: [Personal history of other diseases of the circulatory system] 12-12-2021 Episodic Other circulatory disease (3 sources) Personal history of other diseases of the circulatory system; Translations: [Personal history of other diseases of circulatory system] Episodic Other endocrine disorders (6 sources) Increased cortisol level; Translations: [Other adrenocortical overactivity] 01-28-2023 Chronic Other endocrine disorders (3 sources) Other adrenocortical overactivity; 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] 01-27-2023 Chronic Other gastrointestinal disorders (2 sources) Dysphagia; Translations: [Dysphagia, unspecified] 03-01-2024 Episodic Other gastrointestinal disorders (2 sources) Diarrhea; Translations: [Diarrhea, unspecified] 03-01-2024 Episodic Other hereditary and degenerative nervous system conditions (20 sources) Mild cognitive impairment, so stated; Translations: [Mild cognitive impairment with memory loss] Chronic Other liver diseases (20 sources) Raised cardiac enzyme or marker; Translations: [Abnormal levels of other serum enzymes] 12-12-2021 Episodic Other lower respiratory disease (20 sources) Dyspnea on exertion; Translations: [Dyspnea, unspecified] 10-30-2021 Episodic Other lower respiratory disease (4 sources) Dyspnea, unspecified; Translations: [Other respiratory abnormalities] Episodic Other lower respiratory disease (20 sources) Dyspnea; Translations: [Shortness of breath] Onset: 2 Episodic Other nervous system disorders (20 sources) Narcolepsy; Translations: [Narcolepsy without cataplexy] 05-31-2019 Chronic Other nervous system disorders (20 sources) H/O: epilepsy; Translations: [Personal history of other diseases of the nervous system and sense organs] 03-28-2019 Episodic Other screening for suspected conditions (not mental disorders or infectious disease) (2 sources) Encounter for screening mammogram for malignant neoplasm of breast; Translations: [Abnormal electrocardiogram [ECG] [EKG]] Onset: Episodic Pneumonia (except that caused by tuberculosis or sexually transmitted disease) (20 sources) Pneumonia; Translations: [Pneumonia, unspecified organism] 12-12-2021 Episodic Residual codes; unclassified (20 sources) Disorientated; Translations: [Disorientation, unspecified] 03-28-2019 Episodic Residual codes; unclassified (20 sources) Confusional state; Translations: [Disorientation, unspecified] 09-01-2018 Episodic Residual codes; unclassified (20 sources) Altered mental status; Translations: [Altered mental status, unspecified] 12-12-2021 Episodic Respiratory failure; insufficiency; arrest (adult) (20 sources) Acute respiratory failure; Translations: [Acute respiratory failure with hypoxia] 12-12-2021 Episodic Rheumatoid arthritis and related disease (20 sources) Rheumatoid arthritis; Translations: [Rheumatoid arthritis, unspecified] 12-12-2021 Chronic Septicemia (except in labor) (20 sources) Sepsis; Translations: [Sepsis, unspecified organism] 12-12-2021 Episodic Substance-related disorders (20 sources) Tobacco dependence in remission; Translations: [Nicotine dependence, cigarettes, in remission] Chronic Superficial injury; contusion (20 sources) Contusion of face; Translations: [Contusion of other part of head, initial encounter] 02-23-2022 Episodic Unclassified (2 sources) Dental Problem; Translations: [Dental Problem] Onset: 3 Unclassified (1 source) Other persistent atrial fibrillation; Translations: [Persistent atrial fibrillation (HCC)] Onset: 3 Unclassified (3 sources) Longstanding persistent atrial fibrillation; Translations: [Longstanding persistent atrial fibrillation] Onset: 2 Past or Other Problems Problem Classification Problem Date Documented Da te Episodic/Chronic Abdominal pain (1 source) Epigastric pain; Translations: [Epigastric pain] Onset: 05-04-2024 Episodic Mood disorders (8 sources) Mood disorders Onset: 01-03-2022 Resolved: 01-03-2022 01-03-2022 Nonspecific chest pain (20 sources) Chest pain; Translations: [Chest pain, unspecified] Onset: 05-20-2024 Episodic Other gastrointestinal disorders (1 source) Diarrhea, unspecified; Translations: [Diarrhea, unspecified] Onset: 06-22-2024 Episodic Other hematologic conditions (10 sources) H/O: blood disorder; Translations: [Personal history of diseases of the blood and blood-forming organs and certain disorders involving the immune mechanism] Onset: 02-21-2022 Episodic Other infections; including parasitic (2 sources) Patient cured; Translations: [Personal history of other infectious and parasitic diseases] Onset: 01-07-2023 08-08-2024 Episodic Other lower respiratory disease (8 sources) Shortness of breath; Translations: [Shortness of breath] Onset: 05-20-2024 Episodic Other lower respiratory disease (2 sources) Other forms of dyspnea; Translations: [Other respiratory abnormalities] Onset: 05-20-2024 Episodic Other upper respiratory disease (11 sources) Bleeding from nose; Translations: [Epistaxis] Onset: 02-21-2022 Episodic Other upper respiratory disease (1 source) Epistaxis; Translations: [Epistaxis] Onset: 08-16-2022 Episodic Residual codes; unclassified (7 sources) Other specified personal risk factors, not elsewhere classified; Translations: [Other specified personal history presenting hazards to health] Onset: 08-16-2022 Episodic Residual codes; unclassified (5 sources) At risk of hemorrhage; Translations: [Other specified personal risk factors, not elsewhere classified] Onset: 08-16-2022 Episodic Unclassified (20 sources) Hep C 12-12-2021 Results Test Name Value Interpretation Reference Range Facility Office Visit Reporton 2024 Office Visit Report [facility] [place] [address] OFFICE VISIT Date of Service: 03/01/25 MR#: [id number] Acct: [id number] Patient: TANYA ROLLINS Rep #: [id number] : 1950 Provider: Dr. Roberto Carlos connors MD Age/Sex: 74/F Location: [facility] Status: Signed Intake Vital Signs 12/23/24 09:59 03/01/25 11:25 Height 5 ft 4 in Weight: 126 lb 123 lb 13 oz BMI 21.6 BP 130/83 H 126/70 H Blood Pressure Location Lt brachial Rt brachial Position Sitting Sitting Respiration 15 17 Pulse 93 79 Pulse Source Monitor Monitor Temp 97.3 F L 98.2 F Temp Source Temporal Temporal Pulse Oximetry (%) 100 96 Oxygen Delivery Method room air room air Intake Visit Reasons: B12 inject Chief Complaint: Allergies codeine Allergy (Verified 12/23/24 10:05) Hives morphine Allergy (Verified 12/23/24 10:05) Hives Opioids - Morphine Analogues Allergy (Verified 12/23/24 10:05) Hives sotalol Adverse Reaction (Unknown, Verified 12/23/24 10:05) Confusion aminocaproic acid (From Amicar) Adverse Reaction (Verified 12/23/24 10:05) NEEDS FOLLOW-UP bupropion Adverse Reaction (Verified 12/23/24 10:05) Nausea cephalexin Adverse Reaction (Verified 12/23/24 10:05) Upset Stomach citric acid Adverse Reaction (Verified 12/23/24 10:05) sore throat duloxetine (From Cymbalta) Adverse Reaction (Verified 12/23/24 10:05) Other Food Allergies: Uncoded Adverse Reaction (Verified 12/23/24 10:05) Nausea/Vom/Diarrhea levetiracetam (From Keppra) Adverse Reaction (Verified 12/23/24 10:05) Other Have you fallen in the past year?: Yes Office Meds cyanocobalamin (vitamin B-12) 1,000 mcg/mL injection solution Performing Provider: Roberto Carlos Lima MD Performing Location: [facility] Administered by: Shirley Lety on 03/01/25 10:36 Dose Route Admin Location Dispensed Lot Number Expiration Date FELIX domínguezurer 1,500 mcg IM right deltoid 1.5 mL [id number] 01/31/26 3706-5361-[address] [facility] [address]/HIKMA Comments: The patient presents for B12 injection for treatment of fatigue. She has fatigue. Her last B12 injection was of benefit for fatigue. The patient is awake and alert. B12 1500mcg IM was administered today. There were no complications. Assessment and Plan Assessment and Plan (1) Fatigue: Status: Chronic Qualifiers: Fatigue type: chronic, unspecified Qualified Code(s): R53.82 - Chronic fatigue, unspecified Orders: Orders Vitamin B12 Today R53.82 - Chronic fatigue, unspecified Clinical Quality Measures Falls Risk Screening/Assistive Devices Have you fallen in the past year?: Yes 03/01/25 1556 Date [facility]: Date (if applicable) CC: Normal [facility] CBC,PLATELETSon 02-24-2025 Hematocrit (Bld) [Volume fraction] 44.6 % High 34.9-44.3 [facility] Comment on above: Performed By: #### [facility] [place] #### [facility] (DEFAULT) [address] [address] Hemoglobin (Bld) [Mass/Vol] 13.9 g/dL Normal 11.4-15.2 [facility] Comment on above: Performed By: #### [facility] – [place] #### [facility] (DEFAULT) [address] [address] MCV (RBC) [Entitic vol] 92.5 fL Normal 79.6-97.7 [facility] Comment on above: Performed By: #### H EMO #### [facility] (DEFAULT) [address] [address] Mean Cell Hgb 28.8 pg Normal 25.9-33.9 [facility] Comment on above: Performed By: #### H EMOGC #### [facility] (DEFAULT) [address] [address] Mean Cell Hgb Conc 31.2 g/dL Low 31.4-35.9 [facility] Comment on above: Performed By: #### H EMOGC #### [facility] (DEFAULT) [address] [address] Platelet mean volume (Bld) [Entitic vol] 10.7 fL Normal 8.5-12.2 [facility] Comment on above: Performed By: #### H EMO #### [facility] (DEFAULT) [address] [address] Platelets (Bld) [#/Vol] 276 10*3/uL Normal 150-393 [facility] Comment on above: Performed By: #### H EMO #### [facility] (DEFAULT) [address] [address] RBC (Bld) [#/Vol] 4.82 10*6/uL Normal 3.91-5.04 [facility] Comment on above: Performed By: #### H EMOGC #### [facility] (DEFAULT) [address] [address] RBC Distribution 13.9 % Normal 10.8-14.9 [facility] Comment on above: Performed By: #### H EMOGC #### [facility] (DEFAULT) [address] [address] WBC (Bld) [#/Vol] 8.46 10*3/uL Normal 3.99-11.19 [facility] Comment on above: Performed By: #### [facility] [place] #### [facility] (DEFAULT) [address] [place] [id number] CHEM 6 (LYTES, BUN CREA)on 0 - Anion gap [Moles/Vol] 13 mmol/L Normal 7-17 [facility] Comment on above: Performed By: #### H FP, CHM6, MGO #### [facility] (DEFAULT) [address] [place] [address] Chloride [Moles/Vol] 103 mmol/L Normal 98-108 [facility] Comment on above: Performed By: #### H FP, CHM6, MGO #### [facility] (DEFAULT) [address] [place] [address] CO2 [Moles/Vol] 29 mmol/L Normal 21-31 [facility] Comment on above: Performed By: #### H FP, CHM6, MGO #### [facility] (DEFAULT) [address] [place] [address]64 Creatinine [Mass/Vol] 0.80 mg/dL Normal 0.50-1.20 [facility] Comment on above: Performed By: #### H FP, CHM6, MGO #### U [facility] (DEFAULT) [address] [place] [address] 75811 GFR/1.73 sq M.predicted among non-blacks MDRD (S/P/Bld) [Vol rate/Area] 78 mL/min/{1.73_m2} Normal >=60 [facility] Comment on above: Result Comment: Repo rted eGFR is based on the CKD-EPI 2020 equation using creatinine, age, and sex. Performed By: #### H FP, CHM6, MGO #### U [facility] (DEFAULT) [address] [place] [address] 06495 Potassium [Moles/Vol] 4.7 mmol/L Normal 3.5-5.0 [facility] Comment on above: Performed By: #### H FP, CHM6, MGO #### [facility] (DEFAULT) [address] [place] [address] 60382 Sodium [Moles/Vol] 140 mmol/L Normal 135-145 [facility] Comment on above: Performed By: #### H FP, CHM6, MGO #### [facility] (DEFAULT) [address] [place] [address] 70419 Urea nitrogen [Mass/Vol] 11 mg/dL Normal 7-25 [facility] Comment on above: Performed By: #### H FP, CHM6, MGO #### U [facility] (DEFAULT) [address] [place] [address] 23195 Urea nitrogen/Creatinine [Mass ratio] 14 mg/mg Normal [facility] Comment on above: Performed By: #### H FP, CHM6, MGO #### U [facility] (DEFAULT) [address] [place] [address] 69145 HEPATIC FUNCTION PANELon Albumin [Mass/Vol] 4.7 g/dL Normal 3.5-5.0 [facility] Comment on above: Performed By: #### H FP, CHM6, MGO #### U [facility] (DEFAULT) [address] [place] [address] 25566 ALP [Catalytic activity/Vol] 43 U/L Normal 32-126 [facility] Comment on above: Performed By: #### H FP, CHM6, MGO #### [facility] (DEFAULT) [address] [place] [address] 78289 ALT [Catalytic activity/Vol] 10 U/L Normal 9-48 [facility] Comment on above: Performed By: #### H FP, CHM6, MGO #### [facility] (DEFAULT) [address] [place] [address] 14807 AST [Catalytic activity/Vol] 22 U/L Normal 10-39 [facility] Comment on above: Performed By: #### H FP, CHM6, MGO #### [facility] (DEFAULT) [address] [place] [address] 97628 Bilirubin [Mass/Vol] 0.5 mg/dL Normal <1.5 [facility] Comment on above: Performed By: #### H FP, CHM6, MGO #### [facility] (DEFAULT) [address] [place] [address] 50646 Bilirubin.indirect [Mass/Vol] 0.1 mg/dL Normal <0.3 [facility] Comment on above: Performed By: #### H FP, CHM6, MGO #### [facility] (DEFAULT) [address] [place] [address] 87842 Protein [Mass/Vol] 7.7 g/dL Normal 6.4-8.3 [facility] Comment on above: Performed By: #### H FP, CHM6, MGO #### [facility] (DEFAULT) [address] [place] [address] 98153 MAGNESIUMon 02-24-2025 Magnesium [Mass/Vol] 2.1 mg/dL Normal 1.6-2.6 [facility] Comment on above: Performed By: #### H FP, CHM6, MGO #### [facility] (DEFAULT) [address] [place] [address] 82219 T4 FREEon 02-24-2025 Free T4 [Mass/Vol] 1.15 ng/dL Normal 0.89-1.76 [facility] Comment on above: Performed By: #### F T4, TSH #### U [facility] (DEFAULT) [address] [place] [address] 53415 TSHon 02-24-2025 TSH 1.653 uIU/mL Normal 0.550-4.78 0 [facility] Comment on above: Performed By: #### F T4, TSH #### U [facility] (DEFAULT) [address] [place] [address] 64105 Office Visit Reporton 2024 Office Visit Report [place] [address] OFFICE VISIT Date of Service: 01/24/25 MR#: [id number] Acct: [id number] Patient: TANYA ROLLINS Rep #: [id number] : 1950 Provider: Dr. Roberto Carlos connors MD Age/Sex: 74/F Location: [facility]. Status: Signed Intake Vital Signs 12/23/24 09:59 01/24/25 11:52 Height 5 ft 4 in Weight: 126 lb 126 lb 13 oz BMI 21.6 BP 130/83 H 129/83 H Blood Pressure Location Lt brachial Rt brachial Position Sitting Sitting Respiration 15 17 Pulse 93 74 Pulse Source Monitor Monitor Temp 97.3 F L 98.0 F Temp Source Temporal Temporal Pulse Oximetry (%) 100 99 Oxygen Delivery Method room air room air Intake Visit Reasons: B12 Chief Complaint: Allergies codeine Allergy (Verified 12/23/24 10:05) Hives morphine Allergy (Verified 12/23/24 10:05) Hives Opioids - Morphine Analogues Allergy (Verified 12/23/24 10:05) Hives sotalol Adverse Reaction (Unknown, Verified 12/23/24 10:05) Confusion aminocaproic acid (From Amicar) Adverse Reaction (Verified 12/23/24 10:05) NEEDS FOLLOW-UP bupropion Adverse Reaction (Verified 12/23/24 10:05) Nausea cephalexin Adverse Reaction (Verified 12/23/24 10:05) Upset Stomach citric acid Adverse Reaction (Verified 12/23/24 10:05) sore throat duloxetine (From Cymbalta) Adverse Reaction (Verified 12/23/24 10:05) Other Food Allergies: Uncoded Adverse Reaction (Verified 12/23/24 10:05) Nausea/Vom/Diarrhea levetiracetam (From Keppra) Adverse Reaction (Verified 12/23/24 10:05) Other Have you fallen in the past year?: Yes Office Meds cyanocobalamin (vitamin B-12) 1,000 mcg/mL injection solution Performing Provider: Roberto Carlos Lima MD Performing Location: [facility] Administered by: Shirley Davidson on 01/24/25 10:36 Dose Route Admin Location Dispensed Lot Number Expiration Date NDC Man ufacturer 1,500 mcg IM right deltoid 1.5 mL [id number] 01/01/27 95601-885-33 KATIE WANG Comments: The patient presents for B12 injection for treatment of fatigue. She has fatigue. Her last B12 injection was of benefit for fatigue. The patient is awake and alert. B12 1500mcg IM was administered today. There were no complications Assessment and Plan Assessment and Plan (1) Fatigue: Status: Chronic Qualifiers: Fatigue type: chronic, unspecified Qualified Code(s): R53.82 - Chronic fatigue, unspecified Orders: Orders Vitamin B12 Today R53.82 - Chronic fatigue, unspecified Clinical Quality Measures Falls Risk Screening/Assistive Devices Have you fallen in the past year?: Yes 01/24/25 180 Date Roberto Carlos Lima MD Cosigner Signature: Date (if applicable) CC: Normal [facility] F8on 01-11-2025 Factor VIII 45 % of Normal Low 76-211 [facility] Comment on above: Performed By: #### A DIFF, CBC, 731989, ANEU #### [place] [address] GPIbMon 01-11-2025 VWF GPIbM Activity 100 % Normal [facility] Comment on above: Result Comment: Refe rence Range: 50 - 200 Performed At: [facility] [address] [id number] Ryley Leon MD Ph:[phone] Performed By: #### A DIFF, CBC, 035752, ANEU #### [address] [address] .Auto Diffon 01-05-2025 Basophil, Absolute 0.0 10 3/mcL Normal 0.0-0.3 [facility] Comment on above: Performed By: #### A DIFF, CBC, 759949, ANEU #### [address] [address] Basophils/100 WBC (Bld) 0.3 % Normal 0.0-2.5 [facility] Comment on above: Performed By: #### A DIFF, CBC, 242146, ANEU #### [address] [address] Eosinophil, Absolute 0.1 10 3/mcL Normal 0.0-0.7 [facility] Comment on above: Performed By: #### A DIFF, CBC, 802812, ANEU #### [address] [address] Eosinophils/100 WBC (Bld) 0.8 % Normal 0.0-6.0 [facility] Comment on above: Performed By: #### A DIFF, CBC, [id number], ANEU #### [address] [address] Lymphocyte, Absolute 2.0 10 3/mcL Normal 0.9-4.3 [facility] Comment on above: Performed By: #### A DIFF, CBC, [id number], ANEU #### [address] [address] Lymphocytes/100 WBC (Bld) 15.9 % Low 20.0-40.0 [facility] Comment on above: Performed By: #### A DIFF, CBC, 939185, ANEU #### [address] [address] Monocyte, Absolute 1.6 10 3/mcL High 0.1-1.4 [facility] Comment on above: Performed By: #### A DIFF, CBC, 051626, ANEU #### [address] [address] Monocytes/100 WBC (Bld) 12.9 % Normal 2.0-13.0 [facility] Comment on above: Performed By: #### A DIFF, CBC, 386299, ANEU #### [address] [address] Neutrophils/100 WBC (Bld) 70.1 % Normal 50.0-75.0 [facility] Comment on above: Performed By: #### A DIFF, CBC, [id number], ANEU #### [place] [address] .NEUABSon 01-05-2025 Neutrophil, Absolute 8.7 10 3/mcL High 2.3-8.1 [facility] Comment on above: Performed By: #### A DIFF, CBC, [id number], ANEU #### [place] [address] CBCon 01-05-2025 Erythrocyte distribution width (RBC) [Ratio] 14.2 % Normal 11.5-15.5 [facility] Comment on above: Performed By: #### A DIFF, CBC, [id number], ANEU #### [place] [address] Hematocrit (Bld) [Volume fraction] 38.9 % Normal 34.0-46.0 [facility] Comment on above: Performed By: #### A DIFF, CBC, [id number], ANEU #### [place] [address] Hgb 13.1 G/dL Normal 12.0-16.0 [facility] Comment on above: Performed By: #### A DIFF, CBC, [id number], ANEU #### [place] [address] MCH (RBC) [Entitic mass] 30.1 pg Normal 27.0-33.0 [facility] Comment on above: Performed By: #### A DIFF, CBC, [id number], ANEU #### [place] [address] MCHC 33.6 G/dL Normal 32.0-36.0 [facility] Comment on above: Performed By: #### A DIFF, CBC, [id number], ANEU #### [place] [address] MCV (RBC) [Entitic vol] 89.8 fL Normal 80.0-99.0 [facility] Comment on above: Performed By: #### A DIFF, CBC, 591945, ANEU #### [address] [address] Platelet 278 10 3/mcL Normal 150-450 [facility] Comment on above: Performed By: #### A DIFF, CBC, 179911, ANEU #### [place] [address] Platelet mean volume (Bld) [Entitic vol] 8.5 fL Normal 6.6-10.5 [facility] Comment on above: Performed By: #### A DIFF, CBC, 163820, ANEU #### [place] [address] RBC 4.34 10 6/mcL Normal 4.10-5.30 [facility] Comment on above: Performed By: #### A DIFF, CBC, 037757, ANEU #### [place] [address] WBC 12.3 10 3/mcL High 4.5-10.8 [facility] Comment on above: Performed By: #### A DIFF, CBC, 155112, ANEU #### [place] [address] LABORATORYOrdered By: SYSTEM SYSTEM on 01-05-2025 Basophils (Bld) [#/Vol] 0.0 103/mcL Normal 0.0 - 0.3 10^3/mcL AO Workflow SS Basophils/100 WBC (Bld) 0.3 % Normal 0.0 - 2.5 % AO Workflow SS Eosinophil, Absolute 0.1 103/mcL Normal 0.0 - 0 .7 10^3/mcL AO Workflow SS Eosinophils/100 WBC (Bld) 0.8 % Normal 0.0 - 6.0 % AO Workflow SS Erythrocyte distribution width (RBC) [Ratio] 14.2 % Normal 11.5 - 15.5 % AO Workflow SS Hematocrit (Bld) [Volume fraction] 38.9 % Normal 34.0 - 46.0 % AO Workflow SS Hemoglobin (Bld) [Mass/Vol] 13.1 G/dL Normal 12.0 - 16.0 G/dL AO Workflow SS Lymphocytes (Bld) [#/Vol] 2.0 103/mcL Normal 0.9 - 4.3 10^3/mcL AO Workflow SS Lymphocytes/100 WBC (Bld) 15.9 % Low 20.0 - 40.0 % AO Workflow SS MCH (RBC) [Entitic mass] 30.1 pg Normal 27.0 - 33.0 pg AO Workflow SS MCHC 33.6 G/dL Normal 32.0 - 36.0 G/dL AO Workflow SS MCV (RBC) [Entitic vol] 89.8 fL Normal 80.0 - 99.0 fL AO Workflow SS Monocytes (Bld) [#/Vol] 1.6 103/mcL High 0.1 - 1.4 10^3/mcL AO Workflow SS Monocytes/100 WBC (Bld) 12.9 % Normal 2.0 - 13.0 % AO Workflow SS Neutrophils (Bld) [#/Vol] 8.7 103/mcL High 2.3 - 8.1 10^3/mcL AO Workflow SS Neutrophils/100 WBC (Bld) 70.1 % Normal 50.0 - 75.0 % AO Workflow SS Platelet mean volume (Bld) [Entitic vol] 8.5 fL Normal 6.6 - 10.5 fL AO Workflow SS Platelets (Bld) [#/Vol] 278 103/mcL Normal 150 - 450 10^3/mcL AO Workflow SS RBC (Bld) [#/Vol] 4.34 106/mcL Normal 4.10 - 5.30 10^6/mcL AO Workflow SS WBC (Bld) [#/Vol] 12.3 103/mcL High 4.5 - 10.8 10^3/mcL AO Workflow SS CNPNon 01-03-2025 YAZANN Telephone (CARDAGHWW ) TANYA ROLLINS ([id number]) 1950 F Date Time Provider Department 01/03/25 SHERLEY HEAGHWW During your visit today, we recorded the following information about you: Analilia Villarreal LPN 01/03/2025 5:19 PM Signed Received office visit noted from [facility]. Scanned in for review. Analilia JULIANNA Villarreal Allergies As of Date: 01/03/2025 Noted Allergy Reaction SOTALOL 05/13/2022 14 - Other: See Comments 12 - Shortness of Breath SULFA (SULFONAMIDE ANTIBIOTICS) 11/05/2019 9 - Itching 8 - GI Upset AMINOCAPROIC ACID 01/14/2019 14 - Other: See Comments BUPROPION 05/21/2019 8 - GI Upset CEPHALEXIN 05/21/2019 8 - GI Upset CODEINE 05/31/2004 DESMOPRESSIN 05/31/2004 16 - Unknown DULOXETINE 05/21/2019 14 - Other: See Comments ETANERCEPT 05/21/2019 14 - Other: See Comments LEVETIRACETAM 05/21/2019 14 - Other: See Comments MORPHINE 07/23/2022 16 - Unknown SASSAFRAS OIL 07/23/2022 16 - Unknown Date Reviewed: 09/10/2024 Reviewed by: Sherley He MD - 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 - metoprolol tartrate, short acting, (LOPRESSOR) 50 mg tablet Take 50 mg by mouth two times a day. - potassium chloride ER (KLOR-CON) 20 mEq tablet Take 20 mEq by mouth once daily. - cyanocobalamin, vitamin B-12, (VITAMIN B-12 INJECTION) by INJECTION(UNSPECIFIED PARENTERAL ROUTES) route once every month. - lamoTRIgine (LAMICTAL) 25 mg tablet Take 25 mg by mouth. - acetaminophen (TYLENOL) 500 mg tablet Take 500 mg by mouth every 6 hours as needed. - omeprazole (PRILOSEC) 40 mg capsule Take 40 mg by mouth once daily. - CALCIUM CARBONATE/VITAMIN D2 (CALCIUM + VITAMIN D ORAL) Take 2 teaspoonsful by mouth once daily. - GENTEAL EYE DROPS (1) one drop in each eye 1-2 times daily. Problem List As Of Date 01/03/2025 Noted Resolved VON WILLEBRAND'S DISEASE [D68.00] 05/31/2004 Dyspnea [R06.00] 03/06/2022 Epistaxis [R04.0] 02/21/2022 Essential hypertension, benign [I10] 03/06/2022 Hx of von Willebrand's disease [Z86.2] 02/21/2022 Iron deficiency anemia due to chronic blood los*01/31/2022 Persistent atrial fibrillation (HCC) [I48.19] 03/06/2022 At risk for stroke [Z91.89] 08/16/2022 At risk for bleeding associated with anticoagul*08/16/2022 Gastroesophageal reflux disease [K21.9] 08/19/2022 Chronic viral hepatitis C (HCC) [B18.2] 08/23/2022 Epileptic seizures (HCC) [G40.909] 10/01/2022 Hepatitis C virus infection cured after antivir*01/07/2023 Mixed anxiety depressive disorder [F41.8] 10/01/2022 Osteoporosis [M81.0] 12/11/2022 Encounter Status:Closed by ANALILIA VILLARREAL on 01/03/25 [facility] Neurology Visit Reporton Neurology Visit Report [facility] [address], [address] [place] [address] OFFICE VISIT Date of Service: 12/23/24 MR#: [id number] Acct: [id number] Name: TANYA ROLLINS Rep #: [id number] : 1950 Provider: Dr. Roberto Carlos connors MD Age/Sex: 74/F Location: [facility] Status: Signed HPI [facility] Chief Complaint: Details: Interim History: Tanya returns for a follow-up visit. She is accompanied by her . She has a history of gastroesophageal reflux disease, von Willebrand disease, paroxysmal atrial fibrillation, arthritis and hypertension. She had hepatitis C for which she was treated with interferon in 2002. At that time, she had a vague episode of transient altered mental status described as lethargy and disconnection with her surroundings. She had no further episodes until 2015, when she began to have further episodes of transient altered mental status with appearance of disconnection with her surroundings. During these episodes she, at times, exhibited generalized clonic activity and, at other times, exhibited staring and right hand tapping. She may possibly have had occasional tongue biting. She did not have urinary incontinence. Between 2015 and 2018, she had 3 major episodes as described above during which she would exhibit multiple momentary episodes of apparent unresponsiveness and generalized shaking occurring in one day. Between shaking episodes she was able to talk though she appeared confused. The confusion would last from several hours up to 3 days. Also since 2015, she has had 2 or 3 briefer episodes of momentary disconnection with her surroundings. Her last episode occurred in March 2019. She denied having depression. She has anxiety. She takes a potassium supplement for a history of hypokalemia. Her sodium level was noted to be low in the past however it is unclear whether her hyponatremia was severe (records from 2019 revealed only mild hyponatremia). She has had 3 EEGs; no epileptiform activity was noted; slowing was noted. Her last EEG (04/21/2020) revealed nonspecific intermittent left temporal slowing (this may possibly be related to old ischemic changes). Levetiracetam and lacosamide were not well tolerated. She started lamotrigine in 2019 and is tolerating this well and felt this has been of benefit for her anxiety and pseudoseizures. Records indicate that her last neurologist did not feel that she had epilepsy. She does not have any history of traumatic brain injury, [employer] infection or childhood seizures. She had another episode of tiredness and altered mental status lasting 2 days in January 2021. Prior to the onset of the episode, she had been performing yard work without resting. Her verbal responses during the episode were confused. She did not lose consciousness. She was able to perform basic activities independently. She had excessive somnolence around that time. Her symptoms resolved and she returned to her baseline. Her dose of lamotrigine was increased to 50mg BID. She did not initiate buspirone for anxiety. In December 2021, she had an period of lethargy lasting 2 day without loss of consciousness. She has had some memory difficulty within recent years and this is generally worsened further over time however no further worsening has been noted within recent months. She has a tendency to forget conversations and to repeat conversations. She has had difficulty following cooking recipes and has forgotten how to perform tasks which she was previously able to perform. She has a tendency to forget past and more recent events (such as appointments). Donepezil was not well-tolerated. A record from 2018 indicates that she previously may possibly have had an occurrence of posterior reversible encephalopathy syndrome (PRES) in 2018. She had previously reported having some sleep disturbance and not feeling well rested when she awakened in the morning and occasional daytime sleepiness however on subsequent evaluation in 2023, she denied having any sleep issues and states that she now feels well rested when she awakens in the morning. She stated that on prior assessment by another physician the possibility of narcolepsy was raised. She does not snore at night. No witnessed apnea during sleep has been noted. She was diagnosed with atrial fibrillation in 2021 and later in 2021 underwent cardioversion. She has had subsequent recurrence of atrial fibrillation. She takes metoprolol. Due to her von Willebrand disease, anticoagulation was not initiated. 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 She has fatigue. B12 1500 mcg IM injections have been of moderate benefit for her fatigue and have been more effective than B12 1000 mcg injections. Her mini-mental status exam score was 27/30 in February 2020, 25/30 in February 2022, 25/30 in September 2022, 27/30 in February 2023, 21/30 in February 2024, and 19/30 in July 2024. She received an iron infusion in 2021 for iron deficien (more content not included)... Normal [facility] Prealbumin [id number] Prealbumin [Mass/Vol] 30 mg/dL Normal [facility] Comment on above: Result Comment: Perf ormed at: CB - [facility] [address] [id number] Mangle Feeder: Juan Flores PhD, Phone: [phone] Performed By: #### L 833.9996, Q3525.9830, U527.3014 ####[facility] [id number] [place], [place], [id number] Absolute lymphocyte countOrd ered By: Haroon Patel on 11-30-2024 Lymphocytes Auto (Unsp spec) [#/Vol] 2.80 10*3/uL 0.83-4.51 [facility] Absolute neutrophil countOrd ered By: Haroon Patel on 11-30-2024 Neutrophils (Bld) [#/Vol] 8.0 10*3/uL High 2.0-7.7 [facility] Anion gap in Serum or Plasma Ordered By: Haroon Patel on 11-30-2024 Anion gap [Moles/Vol] 12 mmol/L 5-15 [facility] Automated lymphocyte count a s percentage of total leukocytesOrdered By: Haroon Patel on 11-30-2024 Lymphocytes/100 WBC Auto (Unsp spec) 22.9 % 19- [facility] BUN/creatinine ratioOrdered By: Haroon Patel on 11-30-2024 Urea nitrogen/Creatinine [Mass ratio] 17.3 mg/mg 10- [facility] Basophil percentageOrdered B y: Haroon Patel on 11-30-2024 Basophils/100 WBC (Bld) 0.5 % 0-1 [facility] Bilirubin, totalOrdered By: Haroon Patel on 11-30-2024 Bilirubin [Mass/Vol] 0.50 mg/dL 0.00-1.30 [facility] CBC W/Diff, Automatedon 11-03 Absolute Lymph 2.80 X10 3/uL Normal 0.83-4.51 [facility] Comment on above: Order Comment: Order Date: 11/30/24Order Info: [id number] - CBCDOrder Info: [id number] - SED Performed By: #### L 501.9520, L500.4050, L100.0100, L101.9900 ####[facility] [id number] [place], [place], [id number] Absolute Neut 8.0 X10 3/uL High 2.0-7.7 [facility] Comment on above: Order Comment: Order Date: 11/30/24Order Info: [id number] - CBCDOrder Info: [id number] - SED Performed By: #### L 501.9520, L500.4050, L100.0100, L101.9900 ####[facility] [id number] [place], [address] Basophils/100 WBC (Bld) 0.5 % Normal 0-1 [facility] Comment on above: Order Comment: Order Date: 11/30/24Order Info: [id number] - CBCDOrder Info: [id number] - SED Performed By: #### L 501.9520, L500.4050, L100.0100, L101.9900 ####[facility] [id number] [place], [address] Eosinophils/100 WBC (Bld) 0.9 % Normal 0-5 [facility] Comment on above: Order Comment: Order Date: 11/30/24Order Info: [id number] - CBCDOrder Info: [id number] - SED Performed By: #### L 501.9520, L500.4050, L100.0100, L101.9900 ####[facility] [address] [place], [address] Erythrocyte distribution width (RBC) [Ratio] 13.9 % Normal 11.6-14.6 [facility] Comment on above: Order Comment: Order Date: 11/30/24Order Info: [id number] - CBCDOrder Info: [id number] - SED Performed By: #### L 501.9520, L500.4050, L100.0100, L101.9900 ####[facility] [address] [place], [address] Hematocrit (Bld) [Volume fraction] 40.0 % Normal 37-47 [facility] Comment on above: Order Comment: Order Date: 11/30/24Order Info: [id number] - CBCDOrder Info: [id number] - SED Performed By: #### L 501.9520, L500.4050, L100.0100, L101.9900 ####[facility] [address] [place], [address] Hemoglobin (Bld) [Mass/Vol] 13.2 g/dL Normal 12.0-15.0 [facility] Comment on above: Order Comment: Order Date: 11/30/24Order Info: [id number]- - CBCDOrder Info: [id number] - SED Performed By: #### L 501.9520, L500.4050, L100.0100, L101.9900 ####[facility] [place] [address] [place], [address] IG% 1.000 High 0.0-0.9 [facility] [place] Comment on above: Order Comment: Order Date: 11/30/24Order Info: 183- - CBCDOrder Info: [id number] - SED Result Comment: IG% - Immature Granulocytes (promyelocytes, myelocytes and metamyelocytes) > 1% indicates that a LEFT SHIFT is Present. Performed By: #### L 501.9520, L500.4050, L100.0100, L101.9900 ####[facility] [place] [address] [place], [address] Lymphocytes/100 WBC (Bld) 22.9 % Normal 19-41 [facility] [place] Comment on above: Order Comment: Order Date: 11/30/24Order Info: [id number] - CBCDOrder Info: [id number] - SED Performed By: #### L 501.9520, L500.4050, L100.0100, L101.9900 ####[facility] [place] [address] [place], [address] MCH (RBC) [Entitic mass] 29.9 pg Normal 27.0-32.0 [facility] [place] Comment on above: Order Comment: Order Date: 11/30/24Order Info: [id number] - CBCDOrder Info: [id number] - SED Performed By: #### L 501.9520, L500.4050, L100.0100, L101.9900 ####[facility] [place] [address] [place], [address] MCHC (RBC) [Mass/Vol] 33.0 g/dL Normal 32-36 [facility] Comment on above: Order Comment: Order Date: 11/30/24Order Info: 183- - CBCDOrder Info: [id number] - SED Performed By: #### L 501.9520, L500.4050, L100.0100, L101.9900 ####[facility] [place] [address] [place], [address] MCV (RBC) [Entitic vol] 90.7 fL Normal 81-99 [facility] [place] Comment on above: Order Comment: Order Date: 11/30/24Order Info: 183- - CBCDOrder Info: [id number] - SED Performed By: #### L 501.9520, L500.4050, L100.0100, L101.9900 ####[facility] [place] [address] [place], [address] Monocytes/100 WBC (Bld) 9.8 % Normal 0-10 [facility] [place] Comment on above: Order Comment: Order Date: 11/30/24Order Info: [id number] - CBCDOrder Info: [id number] - SED Performed By: #### L 501.9520, L500.4050, L100.0100, L101.9900 ####[facility] [place] [address] [place], [address] Neutrophils/100 WBC (Bld) 64.9 % Normal 47-70 [facility] [place] Comment on above: Order Comment: Order Date: 11/30/24Order Info: [id number] - CBCDOrder Info: [id number] - SED Performed By: #### L 501.9520, L500.4050, L100.0100, L101.9900 ####[facility] [place] [address] [place], [address] Nucleated RBC (Bld) [#/Vol] 0 10*3/uL Normal 0-5 [facility] [place] Comment on above: Order Comment: Order Date: 11/30/24Order Info: [id number]- - CBCDOrder Info: [id number] - SED Performed By: #### L 501.9520, L500.4050, L100.0100, L101.9900 ####[facility] [place] [address] [place], [address] Platelet mean volume (Bld) [Entitic vol] 11.3 fL Normal 6.2-12.0 [facility] [place] Comment on above: Order Comment: Order Date: 11/30/24Order Info: 018- - CBCDOrder Info: [id number] - SED Performed By: #### L 501.9520, L500.4050, L100.0100, L101.9900 ####[facility] [place] [address] [place], [address] Platelets (Bld) [#/Vol] 296 10*3/uL Normal 150-450 [facility] [place] Comment on above: Order Comment: Order Date: 11/30/24Order Info: 018- - CBCDOrder Info: [id number] - SED Performed By: #### L 501.9520, L500.4050, L100.0100, L101.9900 ####[facility] [address] [place], [address] RBC (Bld) [#/Vol] 4.41 10*6/uL Normal 4.2-5.4 [facility] Comment on above: Order Comment: Order Date: 11/30/24Order Info: [id number]- - CBCDOrder Info: [id number] - SED Performed By: #### L 501.9520, L500.4050, L100.0100, L101.9900 ####[facility] [address] [place], [address] RDW SD 46.5 fl High 35.1-43.9 [facility] [place] Comment on above: Order Comment: Order Date: 11/30/24Order Info: [id number] - CBCDOrder Info: [id number] - SED Performed By: #### L 501.9520, L500.4050, L100.0100, L101.9900 ####[facility] [address] [place], [address] WBC (Bld) [#/Vol] 12.2 10*3/uL High 4.4-11.0 [facility] Comment on above: Order Comment: Order Date: 11/30/24Order Info: [id number] - CBCDOrder Info: [id number] - SED Performed By: #### L 501.9520, L500.4050, L100.0100, L101.9900 ####[facility] [address] [place], [address] Carbon dioxide, total [Moles /volume] in Central venous bloodOrdered By: Haroon Patel on 11-30-2024 CO2 [Moles/Vol] 26.9 mmol/L 21.0-32.0 [facility] Chloride assayOrdered By: Anisa Patel on 11-30-2024 Chloride [Moles/Vol] 94 mmol/L Low 98-108 [facility] Comprehensive Metabolic Prof ilon 11-30-2024 Albumin [Mass/Vol] 4.7 g/dL Normal 3.4-4.8 [facility] Comment on above: Order Comment: Order Date: 11/30/24Order Info: [id number] - CMPOrder Info: [id number] - TSH Performed By: #### L 501.9520, L500.4050, L100.0100, L101.9900 ####[facility] [place] [address] [place], [address] Albumin/Globulin [Mass ratio] 1.8 {ratio} Normal 0.9-2.4 [facility] [place] Comment on above: Order Comment: Order Date: 11/30/24Order Info: [id number] - CMPOrder Info: [id number] - TSH Performed By: #### L 501.9520, L500.4050, L100.0100, L101.9900 ####[facility] [place] [address] [place], [address] ALK PHOS 47 U/L Normal 35-104 [facility] Comment on above: Order Comment: Order Date: 11/30/24Order Info: [id number]- - CMPOrder Info: 3 - TSH Performed By: #### L 501.9520, L500.4050, L100.0100, L101.9900 ####[facility] [address] [place], [address] ALT [Catalytic activity/Vol] 13 U/L Normal <=34 [facility] Comment on above: Order Comment: Order Date: 11/30/24Order Info: 07 - CMPOrder Info: 3 - TSH Performed By: #### L 501.9520, L500.4050, L100.0100, L101.9900 ####[facility] [address] [place], [address] AST [Catalytic activity/Vol] 24 U/L Normal <=31 [facility] Comment on above: Order Comment: Order Date: 11/30/24Order Info: [id number] - CMPOrder Info: 3 - TSH Performed By: #### L 501.9520, L500.4050, L100.0100, L101.9900 ####[facility] [place] [address] [place], [address] Bilirubin [Mass/Vol] 0.50 mg/dL Normal 0.00-1.30 [facility] Comment on above: Order Comment: Order Date: 11/30/24Order Info: 0786- - CMPOrder Info: 3 - TSH Performed By: #### L 501.9520, L500.4050, L100.0100, L101.9900 ####[facility] [address] [place], [address] BUN/CRE 17.3 RATIO Normal 10-20 [facility] [place] Comment on above: Order Comment: Order Date: 11/30/24Order Info: [id number] - CMPOrder Info: 6-3 - TSH Performed By: #### L 501.9520, L500.4050, L100.0100, L101.9900 ####[facility] [address] [place], [address] Calcium [Mass/Vol] 10.1 mg/dL Normal 7.6-11.0 [facility] Comment on above: Order Comment: Order Date: 11/30/24Order Info: [id number] - CMPOrder Info: 3 - TSH Performed By: #### L 501.9520, L500.4050, L100.0100, L101.9900 ####[facility] [place] [address] [place], [address] Chloride [Moles/Vol] 94 mmol/L Low 98-108 [facility] Comment on above: Order Comment: Order Date: 11/30/24Order Info: [id number] - CMPOrder Info: 3 - TSH Performed By: #### L 501.9520, L500.4050, L100.0100, L101.9900 ####[facility] [place] [address] [place], [address] CO2 [Moles/Vol] 26.9 mmol/L Normal 21.0-32.0 [facility] Comment on above: Order Comment: Order Date: 11/30/24Order Info: [id number] - CMPOrder Info: [id number] - TSH Performed By: #### L 501.9520, L500.4050, L100.0100, L101.9900 ####[facility] [address] [place], [address] Creatinine [Mass/Vol] 0.98 mg/dL Normal 0.70-1.20 [facility] Comment on above: Order Comment: Order Date: 11/30/24Order Info: [id number] - CMPOrder Info: 6-3 - TSH Performed By: #### L 501.9520, L500.4050, L100.0100, L101.9900 ####[facility] [address] [place], [address] GAP 12 Normal 5-15 [facility] Comment on above: Order Comment: Order Date: 11/30/24Order Info: [id number] - CMPOrder Info: [id number] - TSH Performed By: #### L 501.9520, L500.4050, L100.0100, L101.9900 ####[facility] [address] [place], [address] GFR/1.73 sq M.predicted among non-blacks MDRD (S/P/Bld) [Vol rate/Area] 61 mL/min/{1.73_m2} Normal >60 [facility] [place] Comment on above: Order Comment: Order Date: 11/30/24Order Info: [id number] - CMPOrder Info: 6-3 - TSH Result Comment: mL/m in/1.73m2 CKD-EPI Creatinine Equation (2020) Performed By: #### L 501.9520, L500.4050, L100.0100, L101.9900 ####[facility] [address] [place], [address] Globulin (S) [Mass/Vol] 2.7 g/dL Normal 2.2-4.2 [facility] Comment on above: Order Comment: Order Date: 11/30/24Order Info: [id number] - CMPOrder Info: [id number] - TSH Performed By: #### L 501.9520, L500.4050, L100.0100, L101.9900 ####[facility] [place] [address] [place], [address] Glucose [Mass/Vol] 119 mg/dL High 70-99 [facility] Comment on above: Order Comment: Order Date: 11/30/24Order Info: [id number] - CMPOrder Info: [id number] - TSH Performed By: #### L 501.9520, L500.4050, L100.0100, L101.9900 ####[facility] [address] [place], [address] Potassium [Moles/Vol] 4.2 mmol/L Normal 3.3-5.1 [facility] Comment on above: Order Comment: Order Date: 11/30/24Order Info: [id number] - CMPOrder Info: 3 - TSH Performed By: #### L 501.9520, L500.4050, L100.0100, L101.9900 ####[facility] [address] [place], [address] Sodium [Moles/Vol] 133 mmol/L Normal 133-145 [facility] Comment on above: Order Comment: Order Date: 11/30/24Order Info: 0786- - CMPOrder Info: 3 - TSH Performed By: #### L 501.9520, L500.4050, L100.0100, L101.9900 ####[facility] [address] [place], [address] T PROT 7.3 g/dL Normal 5.9-8.4 [facility] Comment on above: Order Comment: Order Date: 11/30/24Order Info: 0786- - CMPOrder Info: 3 - TSH Performed By: #### L 501.9520, L500.4050, L100.0100, L101.9900 ####[facility] [address] [place], [address] Urea nitrogen [Mass/Vol] 17 mg/dL Normal 4-19 [facility] Comment on above: Order Comment: Order Date: 11/30/24Order Info: [id number] - CMPOrder Info: 3 - TSH Performed By: #### L 501.9520, L500.4050, L100.0100, L101.9900 ####[facility] [address] [place], [place], [address] Eosinophil percentageOrdered By: Haroon Patel on 11-30-2024 Eosinophils/100 WBC (Bld) 0.9 % 0-5 [facility] Erythrocyte Sed Rateon 11-30 SED RATE 1 mm/hr Normal 0-30 [facility] Comment on above: Order Comment: Order Date: 11/30/24Order Info: [id number] - CBCDOrder Info: [id number] - SED Performed By: #### L 501.9520, L500.4050, L100.0100, L101.9900 ####[facility] [address] [place], [place], [address] Erythrocyte distribution wid th ratioOrdered By: Haroon Patel on 11-30-2024 Erythrocyte distribution width (RBC) [Ratio] 13.9 % 11.6-14.6 [facility] Erythrocyte distribution wid th standard deviationOrdered By: Haroon Patel on 11-30-2024 Erythrocyte distribution width (RBC) [Ratio] 46.5 fl High 35.1-43.9 [facility] Erythrocyte sedimentation ra teOrdered By: Haroon Patel on 11-30-2024 ESR (Bld) [Velocity] 1 mm/h 0-30 [facility] Glomerular filtration rate ( GFR) estimation/1.73 sq m using serum, plasma, or whole bOrdered By: Haroon Patel on 11-30-2024 GFR/1.73 sq M.predicted among non-blacks MDRD (S/P/Bld) [Vol rate/Area] 61 mL/min/{1.73_m2} >60 [facility] Comment on above: mL/min/1.73m2 CKD-EP I Creatinine Equation (2020) Hematocrit Auto (Bld) [Volum e fraction]Ordered By: Haroon Patel on 11-30-2024 Hematocrit (Bld) [Volume fraction] 40.0 % 37-47 [facility] Hemoglobin measurementOrdere d By: Haroon Patel on 11-30-2024 Hemoglobin (Bld) [Mass/Vol] 13.2 g/dL 12.0-15.0 [facility] Immature granulocytes/100 WB C Auto (Bld)Ordered By: Haroon Patel on 11-30-2024 Immature granulocytes/100 WBC (Bld) 1.000 % High 0.0-0.9 [facility] Comment on above: IG% - Immature Granu locytes (promyelocytes, myelocytes and metamyelocytes) > 1% indicates that a LEFT SHIFT is Present. Laboratory - Chemistry and C hemistry - challengeOrdered By: Haroon Patel on 11-30-2024 AST [Catalytic activity/Vol] 24 U/L <32 [facility] MCV (mean corpuscular volume ) determinationOrdered By: Haroon Patel on 11-30-2024 MCV (RBC) [Entitic vol] 90.7 fL 81-99 [facility] Mean corpuscular hemoglobin (MCH) determinationOrdered By: Haroon Patel on 11-30-2024 MCH (RBC) [Entitic mass] 29.9 pg 27.0-32.0 [facility] Mean corpuscular hemoglobin concentration (MCHC) determinationOrdered By: Haroon Patel on 11-30-2024 MCHC (RBC) [Mass/Vol] 33.0 g/dL 32-36 [facility] Mean platelet volume determi nationOrdered By: Haroon Patel on 11-30-2024 Platelet mean volume (Bld) [Entitic vol] 11.3 fL 6.2-12.0 [facility] Monocyte percentageOrdered B y: Haroon Patel on 11-30-2024 Monocytes/100 WBC (Bld) 9.8 % 0-10 [facility] Neutrophil percentageOrdered By: Haroon Patel on 11-30-2024 Neutrophils/100 WBC (Bld) 64.9 % 47-70 [facility] Nucleated red blood cell per centageOrdered By: Haroon Patel on 11-30-2024 Nucleated RBC/100 WBC (Bld) [Ratio] 0 % 0-5 [facility] Platelet countOrdered By: Anisa Patel on 11-30-2024 Platelets (Bld) [#/Vol] 296 10*3/uL 150-450 [facility] Potassium measurement (mass/ volume)Ordered By: Haroon Patel on 11-30-2024 Potassium (Unsp spec) [Mass/Vol] 4.2 mmol/L 3.3-5.1 [facility] RBC Auto (Bld) [#/Vol]Ordere d By: Haroon Patel on 11-30-2024 RBC (Bld) [#/Vol] 4.41 10*6/uL 4.2-5.4 [facility] Serum creatinine measurement (mass/volume)Ordered By: Haroon Patel on 11-30-2024 Creatinine [Mass/Vol] 0.98 mg/dL 0.70-1.20 [facility] Serum globulin measurementOr dered By: Haroon Patel on 11-30-2024 Globulin (S) [Mass/Vol] 2.7 g/dL 2.2-4.2 [facility] Serum glucose measurement (m ass/volume)Ordered By: Haroon Patel on 11-30-2024 Glucose [Mass/Vol] 119 mg/dL High 70-99 [facility] Serum or plasma alanine ruff otransferase (ALT) measurementOrdered By: Haroon Patel on 11-30-2024 ALT [Catalytic activity/Vol] 13 U/L <35 [facility] Serum or plasma albumin natalia urement (mass/volume)Ordered By: Haroon Patel on 11-30-2024 Albumin [Mass/Vol] 4.7 g/dL 3.4-4.8 [facility] Serum or plasma albumin/glob ulin mass ratioOrdered By: Haroon Patel on 11-30-2024 Albumin/Globulin [Mass ratio] 1.8 {ratio} 0.9-2.4 [facility] Serum or plasma alkaline cade sphatase measurementOrdered By: Haroon Patel on 11-30-2024 ALP [Catalytic activity/Vol] 47 U/L 35-104 [facility] Serum or plasma calcium natalia urement (mass/volume)Ordered By: Haroon Patel on 11-30-2024 Calcium [Mass/Vol] 10.1 mg/dL 7.6-11.0 [facility] Serum or plasma urea nitroge n measurement (mass/volume)Ordered By: Haroon Patel on 11-30-2024 Urea nitrogen [Mass/Vol] 17 mg/dL 4- [facility] Serum prealbumin measurement by immunoassayOrdered By: Haroon Patel on 11-30-2024 Prealbumin [Mass/Vol] 30 mg/dL 9- [facility] Comment on above: Performed at: [address] [id number] Director: Juan Flores PhD, Phone: [phone] Sodium levelOrdered By: Lydia Patel on 11-30-2024 Sodium [Moles/Vol] 133 mmol/L 133-145 [facility] TSH DL <= 0.005 mIU/L QnOrde red By: Haroon Patel on 11-30-2024 TSH Qn 2.060 uIU/mL 0.300-4.20 0 [facility] Thyroid Stim Hormone (TSH)on 11-30-2024 TSH 2.060 uIU/mL Normal 0.300-4.20 0 [facility] Comment on above: Order Comment: Order Date: 11/30/24Order Info: [id number] - CMPOrder Info: [id number] - TSH Performed By: #### L 501.9520, L500.4050, L100.0100, L101.9900 ####[facility] [address] [place], [place], [address] Total proteinOrdered By: Zachery Patel on 11-30-2024 Protein [Mass/Vol] 7.3 g/dL 5.9-8.4 [facility] Vitamin B12on 11-30-2024 Cobalamin (Vitamin B12) [Mass/Vol] 650 pg/mL Normal 180-914 [facility] Comment on above: Order Comment: Order Date: 11/30/24Order Info: [id number] - CMPOrder Info: [id number] - TSH Performed By: #### L 506.1001, L3300.6400, L503.0106 ####[facility] [address] [place], [place], [address] Vitamin B12 ser/plasOrdered By: Haroon Patel on 11-30-2024 Cobalamin (Vitamin B12) [Mass/Vol] 650 pg/mL 180-914 [facility] Vitamin D,25 Hydroxyon 11-30 Vitamin D 25-OH 48.9 ng/mL Normal 30-100 [facility] Comment on above: Order Comment: Order Date: 11/30/24Order Info: [id number] - CMPOrder Info: [id number] - TSH Result Comment: Jaqueline min D Status Deficiency: <20 ng/mL (50nmol/L) Insufficiency: 20-30 ng/mL (50-75 nmol/L) Sufficiency: 30-100 ng/mL (75-250 nmol/L) Toxicity: >100 ng/mL (>250 nmol/L) Performed By: #### L 506.1001, L3300.6400, L503.0106 ####[facility] [address] [place], [place], [address] White blood cell (WBC) count Ordered By: Haroon Patel on 11-30-2024 WBC (Bld) [#/Vol] 12.2 10*3/uL High 4.4-11.0 [facility] Endocrinology Visit Reporton 09-27-2024 Endocrinology Visit Report [facility] [address] [place], [place] [address] OFFICE VISIT Date of Service: 09/27/24 MR#: [id number] Acct: [id number] Name: TANYA ROLLINS Rep #: [id number] : 1950 Provider: Cyn Cruz Age/Sex: 73/F Location: [facility] [place] Status: Signed Intake Vital Signs 07/09/24 13:51 08/30/24 09:24 09/27/24 13:31 Height 5 ft 4 in 5 ft 4 in 5 ft 4 in Weight: 128 lb 125 lb 4 oz BMI 21.9 21.4 BP 125/90 H 130/87 H Blood Pressure Location Lt brachial Rt brachial Position Sitting Sitting Respiration 18 Pulse 67 68 Pulse Source Monitor Monitor Pulse Oximetry (%) 100 97 Oxygen Delivery Method room air Intake Visit Reasons: 1 Y FU/Prolia B B Chief Complaint: Bone Is patient in pain?: No Allergies codeine Allergy (Verified 09/27/24 13:32) Hives morphine Allergy (Verified 09/27/24 13:32) Hives Opioids - Morphine Analogues Allergy (Verified 09/27/24 13:32) Hives sotalol Adverse Reaction (Unknown, Verified 09/27/24 13:32) Confusion aminocaproic acid (From Amicar) Adverse Reaction (Verified 09/27/24 13:32) NEEDS FOLLOW-UP bupropion Adverse Reaction (Verified 09/27/24 13:32) Nausea cephalexin Adverse Reaction (Verified 09/27/24 13:32) Upset Stomach citric acid Adverse Reaction (Verified 09/27/24 13:32) sore throat duloxetine (From Cymbalta) Adverse Reaction (Verified 09/27/24 13:32) Other Food Allergies: Uncoded Adverse Reaction (Verified 09/27/24 13:32) Nausea/Vom/Diarrhea levetiracetam (From Keppra) Adverse Reaction (Verified 09/27/24 13:32) Other Medications ???Medication ???Instructions ???Recorded ???Confirmed ???Type omeprazole 40 mg capsule,delayed 40 mg PO BID gerd/acid reflux 05/0409/27/24 History release multivitamin,sc-edjp-dncecj ls 0.5 tab PO BID 05/31/19 09/27/24 H istory (Complete Multivitamin tablet) cholecalciferol (vitamin D3) 50 50 mcg PO DAILY 10/30/21 09/27/24 History mcg (2,000 unit) capsule (Vitamin D3) fluticasone propionate 50 2 spray intranasal DAILY PRN 05/1509/27/24 History mcg/actuation nasal allergies spray,suspension metoprolol tartrate 50 mg tablet 50 mg PO BID 05/15/22 09/27/24 His tory potassium chloride 20 mEq 20 meq PO DAILY supplement 2 09/27/24 History tablet,extended release(part/cryst) denosumab 60 mg/mL subcutaneous 60 mg subcut [id number] BONES #1 mL 01/27/23 09/27/24 Rx syringe acetaminophen 325 mg tablet 650 mg PO BID Pain 03/26/24 History diphenoxylate-atropine 2.5 1 tab PO BID PRN diarrhea #30 tabs 04/22/24 09/27/24 Rx mg-0.025 mg tablet (Lomotil) memantine 10 mg tablet 10 mg PO BID #60 tabs 07/05/24 Rx lamotrigine 25 mg tablet 50 mg (2 x 25 mg) PO BID #120 tabs 07/06/24 09/27/24 Rx Have you fallen in the past year?: No PFSH Medical History Longstanding persistent atrial fibrillation Wears glasses Post-menopausal Rheumatoid arthritis Excessive bleeding Seizures History of diverticulitis Gastric reflux Former smoker Shortness of breath on exertion History of echocardiogram History of stress test Cardiology follow-up encounter Chest pain Cataract, left eye Afib Essential hypertension Paroxysmal atrial fibrillation Osteoporosis Vitamin deficiency Osteoporosis Osteopenia Osteoarthritis Neuropathy Heart murmur Liver disease IBS (irritable bowel syndrome) Hepatitis C Gallstones Chronic bronchitis Bleeding disorder History of blood clots Arthritis History of blood transfusion Acute respiratory failure with hypoxia Sepsis Pneumonia Cardiac enzymes elevated Influenza A Anxiety and depression Narcolepsy Von Willebrand disease Rheumatoid arthritis Mental status change Surgical History History of colonoscopy ( 2010) History of esophagogastroduodenoscopy (EGD) ( 2005) History of total hysterectomy History of repair of ACL History of dilation and curettage History of cholecystectomy History of breast biopsy Family History Mother Endometrial cancer Breast cancer Ovarian cancer Respiratory disease Uncle Cardiac disease Sister Liver disease Hep C Father Depression Social History Smoking Status: Former smoker Tobacco: How many years used: 10 how long ago did patient quit smokin second hand exposure: No alcohol intake: never substance use type: does not use caffeine: Yes Type: coffee Number of servings: 2 HPI HPI Chief Complaint: Bone Details: TANYA ROLLINS, is a 73 F who presents to the office today for follow up. She has been (more content not included)... [facility] CNOVon 09-10-2024 CNOV Office Visit (CARDAG HWW) TANYA ROLLINS ([id number]) 1950 F Date Time Provider Department 09/10/24 2:20 PM SHERLEY HE CARDAGHWW During your visit today, we recorded the following information about you: Pulse Blood pressure Weight 75/minute 153/84 56 kg Sherley He MD 09/11/2024 7:49 PM Signed PRIMARY CARE PHYSICIAN: Haroon Patel ([facility]) [address] [place] [id number] Patient Care Team: Haroon Patel MD as PCP - General (Family Medicine) Analilia Omer MD as Specialty Preventive Maintenance Coordinator (Hematology/Oncology) Sherley He MD as Specialty Preventive Maintenance Coordinator (Cardiology) Jose Enrique Prince MD as Specialty Preventive Maintenance Coordinator (Cardiology) Marlene Webb PA-C as Physician Corporate Ethics Officer (Cardiology) CHIEF COMPLAINT: Follow up for arrhythmia HISTORY OF PRESENT ILLNESS: Ms. Rollins is a 73 year old female who presents today for a cardiovascular medicine follow-up visit. History copied from previous notes, edited as needed: Summary of previous notes: Ms. Rollins has history of atrial fibrillation, diagnosed in [...] in atrial fibrillation. She was evaluated at [facility] by an catering barista, this was about April 2022, she was [...] This option had been mentioned by the [facility] EP physician (Dr. Casanova). Ms. Rollins was referred to me in August 2022 to discuss candidacy for Watchman left atrial appendage closure device. As outlined above, if she is correct that she is no longer considered to have hypertension, her [id number] score is 2 points, with that particular combination of age and female gender being considered intermediate, as opposed to a risk score of 2 involving a harder risk factor such as HTN or DM. The current FDA indication or labelling for Watchman requires [id number] score of 2 or higher, and perhaps more importantly the current National Coverage Determination (NCD) from CMS/Medicare requires a [id number] score of 3 or higher for the insurance coverage. Thus, she does not meet CMS/Medicare NCD guidelines. PLAN AND RECOMMENDATIONS (08/2022): Presently Ms. Rollins does not meet required criteria for Watchman left atrial appendage closure device per CMS/Medicare coverage guidelines. Interim History Dr. He 09/10/2024: Ms. Rollins presents for evaluation of atrial fibrillation, accompanied by her . She was last evaluated by me in August 2022, primarily for consideration of left atrial appendage closure device, such as Watchman device, as alternative to oral anticoagulation therapy for stroke prevention from atrial fibrillation. At that time she was not considered to meet criteria set by FDA or CMS/Medicare. She is not being treated with anticoagulation therapy or antiplatelet therapy, as she has risk for bleeding due to history of von Willebrand disease. No clear symptoms from the atrial fibrillation, except perhaps fatigue. No syncope. She has been referred back to me for consideration again of Watchman device implant, and also regarding atrial fibrillation management. I have confirmed and edited as necessary, the PFSH and ROS obtained by others. PAST MEDICAL HISTORY Diagnosis Date Acid reflux Anemia Arthritis At risk for bleeding associated with anticoagulants At risk for stroke [id number] = 2 (age, female gender); she denies have HTN; age and female gender are considered soft risk factors for stroke from atrial fibrillation, considered borderline or intermediate Clostridium difficile infection 2004 Depression Fibromyalgia Generalized anxiety disorder GERD (gastroesophageal reflux disease) Hepati (more content not included)... Normal [facility] ECG B/O W INTERP (MED OFFICE )on 09-10-2024 Interpretation and review of laboratory results Abnormal [facility] Atrial fibrillation with controlled ventricular response, average 82 bpm; normal QRS duration 102 ms; QTc [address] [facility] Cardiology Visit Reporton Cardiology Visit Report [facility] [place] [id number] [place] [address] OFFICE VISIT Date of Service: 07/09/24 MR#: [id number] Acct: [id number] Name: TANYA ROLLINS Rep #: [id number] : 1950 Provider: DAMIEN Fountain Age/Sex: 73/F Location: [facility] Status: Signed HPI HPI History of Present Illness Details: Tanya Rollins is a 73-year-old white female who presents here today for a cardiovascular follow up. She has a history of atrial fibrillation, hypertension and Von Willebrand type II. She was seen by both [facility] and [facility] EP. Dr. He did not feel that she met criteria for a Watchman device. She had presented to the office last month for an overdue follow-up. At that time she was noted to be in persistent atrial fibrillation. This was noted when she was in to see her PCP. Event monitor from PCP demonstrated 100% atrial fibrillation. She did have an echocardiogram in June 2024 which demonstrated a preserved ejection fraction of 60%. Patient had a pharmacologic stress test in June 2024 which was negative for ischemia. With her persistent atrial fibrillation, I did have a discussion with hematology, hematology felt that with her with her von Willebrand type II that she was at risk of bleeding with starting Eliquis however this could be done on a short-term basis. [place] that she should be reevaluated by EP to see if they would like to place a watchman and consider a cardioversion at the same time. Pt notes that she is still more fatigued with her persistent afib. It was difficult for reach pt about testing results. I left a message, however they can not check their VM. Did encourage them to switch their phone to the home phone number that we call. Intake Vital Signs 05/20/24 14:31 07/05/24 10:31 07/09/24 13:51 Height 5 ft 4 in 5 ft 4 in 5 ft 4 in Weight: 128 lb 128 lb BMI 21.9 21.9 BP 130/80 H 125/90 H Blood Pressure Location Rt brachial Lt brachial Position Sitting Sitting Respiration 16 18 Pulse 105 H 67 Pulse Source Monitor Monitor Temp 97.7 F L Pulse Oximetry (%) 99 100 Oxygen Delivery Method room air Intake Visit Reasons: 5 WK FU High Risk Case Manager Required: No Is patient in pain?: No Allergies codeine Allergy (Verified 07/09/24 13:53) Hives morphine Allergy (Verified 07/09/24 13:53) Hives Opioids - Morphine Analogues Allergy (Verified 07/09/24 13:53) Hives sotalol Adverse Reaction (Unknown, Verified 07/09/24 13:53) Confusion aminocaproic acid (From Amicar) Adverse Reaction (Verified 07/09/24 13:53) NEEDS FOLLOW-UP bupropion Adverse Reaction (Verified 07/09/24 13:53) Nausea cephalexin Adverse Reaction (Verified 07/09/24 13:53) Upset Stomach citric acid Adverse Reaction (Verified 07/09/24 13:53) sore throat duloxetine (From Cymbalta) Adverse Reaction (Verified 07/09/24 13:53) Other Food Allergies: Uncoded Adverse Reaction (Verified 07/09/24 13:53) Nausea/Vom/Diarrhea levetiracetam (From Keppra) Adverse Reaction (Verified 07/09/24 13:53) Other Medications ???Medication ???Instructions ???Recorded ???Confirmed ???Type omeprazole 40 mg capsule,delayed 40 mg PO BID gerd/acid reflux 05/18/16 04/13/24 History release multivitamin,uo-fctx-nftigt ls 0.5 tab PO BID 05/31/19 07/09/24 History (Complete Multivitamin tablet) cholecalciferol (vitamin D3) 50 50 mcg PO DAILY 10/30/21 04/13/24 History mcg (2,000 unit) capsule (Vitamin D3) fluticasone propionate 50 2 spray intranasal DAILY PRN 05/15/22 04/12/24 History mcg/actuation nasal allergies spray,suspension metoprolol tartrate 50 mg tablet 50 mg PO BID 05/15/22 07/09/24 History potassium chloride 20 mEq 20 meq PO DAILY supplement 05/15/22 07/09/24 History tablet,extended release(part/cryst) denosumab 60 mg/mL subcutaneous 60 mg subcut [id number] BONES #1 mL 01/27/23 04/12/24 Rx syringe acetaminophen 325 mg tablet 650 mg PO BID Pain 03/26/24 07/09/24 History diphenoxylate-atropine 2.5 1 tab PO BID PRN diarrhea #30 tabs 04/22/24 Rx mg-0.025 mg tablet (Lomotil) memantine 10 mg tablet 10 mg PO BID #60 tabs 07/05/24 07/05/24 Rx memantine 5 mg tablet 5 mg PO .COMPLEX 3 weeks #42 tabs 07/05/24 07/05/24 Rx lamotrigine 25 mg tablet 50 mg (2 x 25 mg) PO BID #120 tabs 07/06/24 07/09/24 Rx Have you fallen in the past year?: No Nurse's Note: no medication list, guessing at what medications she is taking COUNTS INCLUDE 234 BEDS AT [facility] Medical History Longstanding persistent atrial fibrillation Wears glasses Post-menopausal Rheumatoid arthritis Excessive bleeding Seizures History of diverticulitis Gastric reflux Former smoker Shortness of breath on exertion History of echocardiogram History of stress test Cardiology fol (more content not included)... Normal [facility] Neurology Visit Reporton Neurology Visit Report [facility] [address] [place] [address] OFFICE VISIT Date of Service: 07/05/24 MR#: [id number] Acct: [id number] Name: TANYA ROLLINS Rep #: [id number] : 1950 Provider: Dr. Roberto Carlos connors MD Age/Sex: 73/F Location: [facility] Status: Signed with Addenda ADDENDUM by Dr. Roberto Carlos Lima MD on 07/06/24 at 1008 Addendum Addendum (07/06/2024): Due to her von Willebrand disease, I do not feel that she is a candidate for Leqembi. 07/06/24 1008 Date Roberto Carlos Lima MD cc: * Signed HPI [facility] Chief Complaint: Details: Interim History: Tanya returns for a follow-up visit. She is accompanied by her . She has a history of gastroesophageal reflux disease, von Willebrand disease, paroxysmal atrial fibrillation, arthritis and hypertension. She had hepatitis C for which she was treated with interferon in 2002. At that time, she had a vague episode of transient altered mental status described as lethargy and disconnection with her surroundings. She had no further episodes until 2015, when she began to have further episodes of transient altered mental status with appearance of disconnection with her surroundings. During these episodes she, at times, exhibited generalized clonic activity and, at other times, exhibited staring and right hand tapping. She may possibly have had occasional tongue biting. She did not have urinary incontinence. Between 2015 and 2018, she had 3 major episodes as described above during which she would exhibit multiple momentary episodes of apparent unresponsiveness and generalized shaking occurring in one day. Between shaking episodes she was able to talk though she appeared confused. The confusion would last from several hours up to 3 days. Also since 2015, she has had 2 or 3 briefer episodes of momentary disconnection with her surroundings. Her last episode occurred in March 2019. She denied having depression. She has anxiety. She takes a potassium supplement for a history of hypokalemia. Her sodium level was noted to be low in the past however it is unclear whether her hyponatremia was severe (records from 2019 revealed only mild hyponatremia). She has had 3 EEGs; no epileptiform activity was noted; slowing was noted. Her last EEG (04/21/2020) revealed nonspecific intermittent left temporal slowing (this may possibly be related to old ischemic changes). Levetiracetam and lacosamide were not well tolerated. She started lamotrigine in 2019 and is tolerating this well and felt this has been of benefit for her anxiety and pseudoseizures. Records indicate that her last neurologist did not feel that she had epilepsy. She does not have any history of traumatic brain injury, [employer]IOR [employer] AD[employer]RATOR infection or childhood seizures. She had another episode of tiredness and altered mental status lasting 2 days in January 2021. Prior to the onset of the episode, she had been performing yard work without resting. Her verbal responses during the episode were confused. She did not lose consciousness. She was able to perform basic activities independently. She had excessive somnolence around that time. Her symptoms resolved and she returned to her baseline. Her dose of lamotrigine was increased to 50mg BID. She did not initiate buspirone for anxiety. In December 2021, she had an period of lethargy lasting 2 day without loss of consciousness. She has had some memory difficulty within recent years and this is generally worsened further over time however no further worsening has been noted within recent months. She has a tendency to forget conversations and to repeat conversations. She has had difficulty following cooking recipes and has forgotten how to perform tasks which she was previously able to perform. She has a tendency to forget past and more recent events (such as appointments). Donepezil was not well-tolerated. A record from 2018 indicates that she previously may possibly have had an occurrence of posterior reversible encephalopathy syndrome (PRES) in 2018. She had previously reported having some sleep disturbance and not feeling well rested when she awakened in the morning and occasional daytime sleepiness however presently she denies having any sleep issues and states that she now feels well rested when she awakens in the morning. She stated that on prior assessment by another physician the possibility of narcolepsy was raised. She does not snore at night. No witnessed apnea during sleep has been noted. She was diagnosed with atrial fibrillation in 2021 and later in 2021 underwent cardioversion. She has had subsequent recurrence of atrial fibrillation. She takes metoprolol. Due to her von Willebrand disease, anticoagulation was not initiated. 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 She has fatigue. B12 1500 mcg IM injections have been of moderate benefit for her fat (more content not included)... Normal [facility] Office Visit Reporton 2023 Office Visit Report [facility] [address] [place] [address] OFFICE VISIT Date of Service: 06/23/24 MR#: [id number] Acct: [id number] Patient: TANYA ROLLINS Rep #: [id number] : 1950 Provider: Dr. Roberto Carlos connors MD Age/Sex: 73/F Location: [facility]. Status: Signed Intake Vital Signs 05/20/24 14:31 05/24/24 10:01 06/23/24 13:22 Height 5 ft 4 in 5 ft 4 in 5 ft 4 in Weight: 124 lb 10 oz 126 lb BMI 21.4 21.6 BP 122/80 H 128/76 H Blood Pressure Location Lt brachial Lt brachial Position Sitting Sitting Respiration 17 15 Pulse 64 65 Pulse Source Monitor Monitor Temp 97.8 F 98.0 F Temp Source Temporal Temporal Pulse Oximetry (%) 99 98 Oxygen Delivery Method room air room air Intake Visit Reasons: B12 inject Chief Complaint: diarrhea Allergies codeine Allergy (Verified 05/20/24 14:32) Hives morphine Allergy (Verified 05/20/24 14:32) Hives Opioids - Morphine Analogues Allergy (Verified 05/20/24 14:32) Hives sotalol Adverse Reaction (Unknown, Verified 05/20/24 14:32) Confusion aminocaproic acid (From Amicar) Adverse Reaction (Verified 05/20/24 14:32) NEEDS FOLLOW-UP bupropion Adverse Reaction (Verified 05/20/24 14:32) Nausea cephalexin Adverse Reaction (Verified 05/20/24 14:32) Upset Stomach citric acid Adverse Reaction (Verified 05/20/24 14:32) sore throat duloxetine (From Cymbalta) Adverse Reaction (Verified 05/20/24 14:32) Other Food Allergies: Uncoded Adverse Reaction (Verified 05/20/24 14:32) Nausea/Vom/Diarrhea levetiracetam (From Keppra) Adverse Reaction (Verified 05/20/24 14:32) Other Have you fallen in the past year?: No Office Meds cyanocobalamin (vitamin B-12) 1,000 mcg/mL injection solution Performing Provider: Roberto Carlos Lima MD Performing Location: [facility] Administered by: Lurdes Ortega on 06/23/24 13:29 Dose Route Admin Location Dispensed Lot Number Expiration Date NDMorris Medina ufacturer 1,500 mcg IM Right Deltoid 1.5 mL [id number] 09/03/26 46245-990-03 CJ WANG Comments: The patient presents for vitamin B12 injection for treatment of fatigue. She has fatigue. Her last B12 injection was of benefit for fatigue. The patient is awake and alert. Vitamin B12 1,500 IM was administered today. There were no complications. Assessment and Plan Assessment and Plan (1) Fatigue: Status: Chronic Qualifiers: Fatigue type: chronic, unspecified Qualified Code(s): R53.82 - Chronic fatigue, unspecified Orders: Orders Vitamin B12 Today R53.82 - Chronic fatigue, unspecified Clinical Quality Measures Falls Risk Screening/Assistive Devices Have you fallen in the past year?: No 06/23/24 1354 Date Roberto Carlos Nicholasign Signature: Date (if applicable) CC: Normal [facility] Echo Completeon 06-21-2024 Echo Complete [facility] [address] [place] [id number] Echo Complete 06/21/24 0937 MR#: [id number] Acct: [id number] Name: TANYA ROLLINS Rep #: [id number] : 1950 73 From: Jose Enrique Prince MD Attending Dr: DAMIEN Polanco Status: REG CLI Ordering Dr: Marlene Webb Date: 06/04 03/27 Location: [facility] Sex: F C Admitted: Reason For Study: ATRIAL FIBRILLATION Procedure This was a 2D Doppler, Color Flow transthoracic echocardiogram. Exam performed in department. Left Ventricle Normal LV size. Left ventricular systolic function is normal. The left ventricular ejection fraction is 60 %. No regional wall motion abnormalities noted. Right Ventricle Normal RV size. Normal systolic function. Atria Normal left atrium. Normal right atrium. Mitral Valve Normal mitral valve. Mild (1+) eccentric mitral valve insufficiency. Tricuspid Valve Normal tricuspid valve. Mild (1+) tricuspid valve insufficiency. Pulmonary artery systolic pressure is 40 mmHg. Aortic Valve Trisinus/trileaflet aortic valve. Pulmonic Valve Normal pulmonic valve. Great Vessels Normal aortic root. The pulmonary artery is normal size. Normal inferior vena cava. Pericardium/Pleural No pericardial effusion. MMode/2D Measurements Calculations LVIDd: 4.2 cm IVSd: 1.0 cm LVOT diam: 2.0 cm LVIDs: 2.9 cm LVPWd: 0.82 cm LVOT area: 3.0 cm2 RVDd: 3.1 cm FS: 31.8 % asc Aorta Diam: 3.5 cm LAV(MOD-bp): 50.9 ml LVAd ap4: 17.0 cm2 LAV(MOD-bp) Indexed: 31.8 ml/m2 LVLd ap4: 6.4 cm LAV(MOD-sp2): 42.7 ml EDV(MOD-sp4): 37.4 ml LAV(MOD-sp4): 59.1 ml EDV(sp4-el): 38.8 ml LVAs ap4: 10.1 cm2 LVLs ap4: 5.5 cm ESV(MOD-sp4): 15.3 ml ESV(sp4-el): 15.7 ml EF(MOD-sp4): 59.0 % EF(sp4-el): 59.4 % LVAd ap2: 19.1 cm2 SV(MOD-sp4): 22.0 ml SV(MOD-sp2): 24.4 ml LVLd ap2: 6.2 cm SI(MOD-sp4): 13.8 ml/m2 SI(MOD-sp2): 15.2 ml/m2 EDV(MOD-sp2): 47.0 ml EDV(sp2-el): 49.7 ml LVAs ap2: 12.5 cm2 LVLs ap2: 5.6 cm ESV(MOD-sp2): 22.7 ml ESV(sp2-el): 23.4 ml EF(MOD-sp2): 51.8 % SV(sp4-el): 23.1 ml Ao sinus diam: 3.[address] Junction: 2.5 cm LA dimension(2D): 3.1 cm LA A4 area: 20.2 cm2 RA A4 area: 18.1 cm2 TAPSE: 1.7 cm Time Measurements MV dec time: 0.13 sec Doppler Measurements Calculations MV E max trudy: 131.3 cm/sec Lat Peak E' Trudy: 10.8 cm/sec Med Peak E' Trudy: 6.8 cm/sec E/E' lat: 12.2 E/E' med: 19.3 Ao V2 max: 85.1 cm/sec LV V1 max: 65.3 cm/sec SV(LVOT): 39.5 ml Ao max P.9 mmHg LV V1 max P.7 mmHg Ao V2 mean: 62.6 cm/sec LV V1 mean P.90 mmHg Ao mean P.7 mmHg LV V1 mean: 44.4 cm/sec Ao V2 VTI: 16.6 cm LV V1 VTI: 13.0 cm AV (velocity ratio): 0.79 SENTHIL(I,D): 2.4 cm2 SENTHIL(V,D): 2.3 cm2 PA V2 max: 63.8 cm/sec TR max trudy: 302.5 cm/sec TR max P.6 mmHg ECHO/Echo Complete Interpretation Summary Normal LV size. Left ventricular systolic function is normal. The left ventricular ejection fraction is 60 %. Mild (1+) tricuspid valve insufficiency. Ordering Physician: Marlene Webb Referring Physician: Haroon Patel MD Performed By: Kavitha Jacinto RDCS and Student 06/21/24 1259 Date Jose Enrique Prince MD CC: Dr. Haroon Patel MD; DAMIEN Polanco Date Dictated: 06/21/2437 Date Transcribed: 06/21/24 125 Gifted Program Teacher: Signed Normal [facility] Stress Reporton 06-21-2024 Stress Report [facility] [address] [place] [address] MR#: [id number] Acct: [id number] Name: TANYA ROLLINS Rep #: [id number] : 1950 73 From: Jose Enrique Prince MD Primary Care: Dr. Haroon Patel MD Status: REG CLI Referring Dr: Marlene Webb Sex: F C Stress Test Report Pharmacologic myocardial perfusion stress test. 73-year-old lady with a history of chest pain Resting EKG demonstrates atrial fibrillation with a rate of 86 bpm. Resting blood pressure is 122/60 mmHg. 0.4 mg of regadenoson was infused per usual protocol followed by rapid intravenous saline flush injection. Continuous EKG monitoring was performed. The maximum heart rate was 136 bpm which was 91% of max impacted heart rate the maximum workload was 1 metabolic equivalent. At rest there were no ST or T wave changes noted to suggest ischemia and at peak infusion nonspecific ST changes were noted which did not meet the criteria for ischemia. No clinical angina is noted. The final blood pressure was 118/60 mmHg. Myocardial perfusion protocol. 11.5 mCi of technetium 99m sestamibi was injected at rest. 0.4 mg of regadenoson was infused per usual protocol. At peak infusion 34.8 mCi of technetium 99m sestamibi was injected stress images were obtained stress and rest images were reconstructed and compared in the short axis vertical long and horizontal long axis. Gated images were also obtained. Perfusion SPECT analysis: Review of the stress images demonstrate normal uptake of tracer noted in all areas of the myocardium. The resting images similar demonstrated normal uptake of tracer noted in all areas of the myocardium. No areas of reversibility are noted to suggest ischemia and no previous infarct is noted. Gated SPECT analysis: The gated ejection fraction is 66%. Conclusion: Normal pharmacologic myocardial perfusion stress test. Preserved ejection fraction. 06/21/241612 Date Jose Enrique Prince MD CC: Dr. Haroon Patel MD; DAMIEN Polanco Date Dictated: 06/21/241611 Date Transcribed: 06/21/241611 Gifted Program Teacher: [place] Signed Normal [facility] Gastric Emptying Studyon Gastric Emptying Study [facility] [address] [place] [address] Gastric Emptying Study MR#: [id number] Acct: [id number] Name: TANYA ROLLINS Rep #: [id number] : 1950 F 73 From: Reji Mata PCP: Dr. Haroon Patel MD Status: REG CLI Study: Gastric Emptying Study Date of Exam: 06/03/24 Exam# [id number] Ordering Dr: Filomena Landa [id number] CLINICAL: 73-year-old female with history of diarrhea. SEMI-SOLID PHASE 99m Tc SULFUR COLLOID GASTRIC EMPTYING STUDY COMPARISON: None available FINDINGS: The patient was administered 1.2 mCi of 99m Tc sulfur colloid mixed with oatmeal and consumed per os. Image acquisitions in the anterior-posterior projections were obtained for 60 minutes. There is prompt visualization of the stomach. There is no gastroesophageal reflux identified. The T ? linear fit was calculated to be 42.98 minutes, (Normal: 12-56 minutes). NM/Gastric Emptying Study IMPRESSION: 1. NORMAL 99m Tc sulfur colloid semi-solid phase (oatmeal) gastric emptying imaging examination. A. There is normal and preserved semi-solid phase gastric emptying compared to normal controls. (Randolph chow al, J Nucl Med Tech 38: 186, 2010). Electronically Signed: Reji Oglesby DO at 12:57 EDT , CC: Dr. Haroon Patel MD; DAMIEN Carson Gifted Program Teacher: Signed Normal [facility] Office Visit Reporton 2023 Office Visit Report [facility] [address] [place] [address] OFFICE VISIT Date of Service: 05/24/24 MR#: [id number] Acct: [id number] Patient: TANYA ROLLINS Rep #: [id number] : 1950 Provider: Dr. Roberto Carlos connors MD Age/Sex: 73/F Location: [facility]. Status: Signed Intake Vital Signs 04/13/24 13:30 05/20/24 14:31 05/24/24 10:01 Height 5 ft 4 in 5 ft 4 in 5 ft 4 in Weight: 124 lb 10 oz BMI 21.4 BP 122/80 H Blood Pressure Location Lt brachial Position Sitting Respiration 17 Pulse 64 Pulse Source Monitor Temp 97.8 F Temp Source Temporal Pulse Oximetry (%) 99 Oxygen Delivery Method room air Intake Visit Reasons: B12 Chief Complaint: diarrhea Is patient in pain?: Yes Allergies codeine Allergy (Verified 05/20/24 14:32) Hives morphine Allergy (Verified 05/20/24 14:32) Hives Opioids - Morphine Analogues Allergy (Verified 05/20/24 14:32) Hives sotalol Adverse Reaction (Unknown, Verified 05/20/24 14:32) Confusion aminocaproic acid (From Amicar) Adverse Reaction (Verified 05/20/24 14:32) NEEDS FOLLOW-UP bupropion Adverse Reaction (Verified 05/20/24 14:32) Nausea cephalexin Adverse Reaction (Verified 05/20/24 14:32) Upset Stomach citric acid Adverse Reaction (Verified 05/20/24 14:32) sore throat duloxetine (From Cymbalta) Adverse Reaction (Verified 05/20/24 14:32) Other Food Allergies: Uncoded Adverse Reaction (Verified 05/20/24 14:32) Nausea/Vom/Diarrhea levetiracetam (From [facility]) Adverse Reaction (Verified 05/20/24 14:32) Other Have you fallen in the past year?: Yes Office Meds cyanocobalamin (vitamin B-12) 1,000 mcg/mL injection solution Performing Provider: Roberto Carlos Lima MD Performing Location: [facility] Administered by: Shirley Davidson on 05/24/24 10:10 Dose Route Admin Location Dispensed Lot Number Expiration Date [facility] Man ufacturer 1,500 mcg IM left deltoid 1.5 mL [id number] 06/03/26 71450-135-04 CJ WANG Comments: The patient presents for B12 injection for treatment of fatigue. She has fatigue. Her last B12 injection was of benefit for fatigue. The patient is awake and alert. B12 1500mcg IM was administered today. There were no complications. Assessment and Plan Assessment and Plan (1) Fatigue: Status: Chronic Qualifiers: Fatigue type: chronic, unspecified Qualified Code(s): R53.82 - Chronic fatigue, unspecified Orders: Orders Vitamin B12 Today R53.82 - Chronic fatigue, unspecified Clinical Quality Measures Falls Risk Screening/Assistive Devices Have you fallen in the past year?: Yes 05/24/24 1450 Date Roberto Carlos Lima MD Cosigner Signature: Date (if applicable) CC: Normal [facility] 12 Lead EKG performed by [facility] on 05-20-2024 12 Lead EKG performed by [facility] [address] [place] [address] 12 Lead EKG performed by [facility] 05/20/24 1422 MR#: [id number] Acct: [id number] Name: TANYA ROLLINS Rep #: [id number] : 1950 73 From: Marlene Cazares Attending Dr: DAMIEN Polanco Status: DEP AMB Ordering Dr: Marlene Webb Date: 05/04 02/24 Location: [facility] Sex: F C Admitted: BMS/12 Lead EKG performed by [facility] ECG Report Interpretation A trial fibrillation -Left axis -anterior fascicular block. -Anteroseptal infarct -age undetermined. ABNORMAL Electronically signed on 05/21/2024 at 09:52 by Jose Enrique [employer] Version [id number] 05/21/24 0953 Date Marlene QUEZADA CC: Dr. Haroon Patel MD Date Dictated: 05/20/241421 Date Transcribed: 05/20/241421 Gifted Program Teacher: CAREN Signed Normal [facility] Cardiology Visit Reporton Cardiology Visit Report [facility] [address] [place], [place] [address] OFFICE VISIT Date of Service: 05/20/24 MR#: [id number] Acct: [id number] Name: TANYA ROLLINS Rep #: [id number] : 1950 Provider: DAMIEN Fountain Age/Sex: 73/F Location: [facility] Status: Signed HPI [facility] History of Present Illness Details: Tanya Rollins is a 73-year-old white female who presents here today for a cardiovascular follow up. She has a history of atrial fibrillation, hypertension and Von Willebrand type II. She was seen by both [facility] and [facility] EP. Dr. He did not feel that she met criteria for a Watchman device. She is here for an over due follow up. She was last in the office in 2022. She appears to be in persistent Afib. She is aware of this. She does have some chest pressure. She does sometimes have worsening SOB. She feels overall her energy level is okay. However she feels since she has been in more persistent afib that she is more fatigued. She does sometimes have positional lightheadedness/dizziness. She does not have any syncope. She does not have any edema. She is wearing a 7 day event monitor from her PCP. EKG today demonstrates Afib with a HR of 84. Intake Vital Signs 04/22/24 09:01 05/20/24 14:31 Height 5 ft 4 in 5 ft 4 in Weight: 125 lb 10 oz 125 lb BMI 21.5 21.4 BP 122/80 H 132/89 H Blood Pressure Location Lt brachial Lt brachial Position Sitting Sitting Respiration 17 18 Pulse 65 89 Pulse Source Monitor Monitor Temp 97.8 F Pulse Oximetry (%) 98 98 Oxygen Delivery Method room air Intake Visit Reasons: Afib per Amanda High Risk Case Manager Required: No Is patient in pain?: No Allergies codeine Allergy (Verified 05/20/24 14:32) Hives morphine Allergy (Verified 05/20/24 14:32) Hives Opioids - Morphine Analogues Allergy (Verified 05/20/24 14:32) Hives sotalol Adverse Reaction (Unknown, Verified 05/20/24 14:32) Confusion aminocaproic acid (From Amicar) Adverse Reaction (Verified 05/20/24 14:32) NEEDS FOLLOW-UP bupropion Adverse Reaction (Verified 05/20/24 14:32) Nausea cephalexin Adverse Reaction (Verified 05/20/24 14:32) Upset Stomach citric acid Adverse Reaction (Verified 05/20/24 14:32) sore throat duloxetine (From Cymbalta) Adverse Reaction (Verified 05/20/24 14:32) Other Food Allergies: Uncoded Adverse Reaction (Verified 05/20/24 14:32) Nausea/Vom/Diarrhea levetiracetam (From Keppra) Adverse Reaction (Verified 05/20/24 14:32) Other Medications ???Medication ???Instructions ???Recorded ???Confirmed ???Type omeprazole 40 mg capsule,delayed 40 mg PO BID gerd/acid reflux 05/18/16 04/13/24 History release multivitamin,gh-aenw-kdkgpu ls 0.5 tab PO BID 05/31/19 04/13/24 History (Complete Multivitamin tablet) cholecalciferol (vitamin D3) 50 50 mcg PO DAILY 10/30/21 04/13/24 History mcg (2,000 unit) capsule (Vitamin D3) fluticasone propionate 50 2 spray intranasal DAILY PRN 05/15/22 04/12/24 History mcg/actuation nasal allergies spray,suspension metoprolol tartrate 50 mg tablet 50 mg PO BID 05/15/22 04/13/24 History potassium chloride 20 mEq 20 meq PO DAILY supplement 05/15/22 04/13/24 History tablet,extended release(part/cryst) denosumab 60 mg/mL subcutaneous 60 mg subcut [id number] BONES #1 mL 01/27/23 04/12/24 Rx syringe acetaminophen 325 mg tablet 650 mg PO BID Pain 03/26/24 04/13/24 History lamotrigine 25 mg tablet 50 mg (2 x 25 mg) PO BID #120 tabs 04/20/24 Rx diphenoxylate-atropine 2.5 1 tab PO BID PRN diarrhea #30 tabs 04/22/24 Rx mg-0.025 mg tablet (Lomotil) Have you fallen in the past year?: No PFSH Medical History Wears glasses Post-menopausal Rheumatoid arthritis Excessive bleeding Seizures History of diverticulitis Gastric reflux Former smoker Shortness of breath on exertion History of echocardiogram History of stress test Cardiology follow-up encounter Chest pain Cataract, left eye Afib Essential hypertension Paroxysmal atrial fibrillation Osteoporosis Vitamin deficiency Osteoporosis Osteopenia Osteoarthritis Neuropathy Heart murmur Liver disease IBS (irritable bowel syndrome) Hepatitis C Gallstones Chronic bronchitis Bleeding disorder History of blood clots Arthritis History of blood transfusion Acute respiratory failure with hypoxia Sepsis Pneumonia Cardiac enzymes elevated Influenza A Anxiety and depression Narcolepsy Von Willebrand disease Rheumatoid arthritis Mental status change Surgical History History of colonoscopy ( 2010) History of esophagogastroduodenoscopy (EGD) ( 2005) History of total hysterectomy History (more content not included)... Normal [facility] Basic Metabolic Profile (BMP )on 05-18-2024 BUN/CRE 13.8 RATIO Normal 05-23 [facility] Comment on above: Order Comment: Order Date: 05/18/24 Order Info: 0667-1 - BMP Order Info: [id number] - MG Order Info: 3 - TSH Performed By: #### L 500.2500, L501.5200, L100.0500, L501.9520 #### [facility] Laboratory [address] [place], [address] CA,Total 9.6 mg/dL Normal 8.5-10.1 [facility] Comment on above: Order Comment: Order Date: 05/18/24 Order Info: 0667-1 - BMP Order Info: 51825-7 - MG Order Info: 3 - TSH Performed By: #### L 500.2500, L501.5200, L100.0500, L501.9520 #### [facility] Laboratory [address] [place], [address] Chloride [Moles/Vol] 103 mmol/L Normal 98-107 [facility] Comment on above: Order Comment: Order Date: 05/18/24 Order Info: 0667-1 - BMP Order Info: [id number] - MG Order Info: 3 - TSH Performed By: #### L 500.2500, L501.5200, L100.0500, L501.9520 #### [facility] Laboratory [address] [place], [address] CO2 [Moles/Vol] 27.0 mmol/L Normal 21.0-32.0 [facility] Comment on above: Order Comment: Order Date: 05/18/24 Order Info: 0667-1 - BMP Order Info: [id number] - MG Order Info: 3015-3 - TSH Performed By: #### L 500.2500, L501.5200, L100.0500, L501.9520 #### [facility] Laboratory [address] [place], [address] Creatinine [Mass/Vol] 0.87 mg/dL Normal 0.55-1.02 [facility] Comment on above: Order Comment: Order Date: 05/18/24 Order Info: 666-08 - BMP Order Info: 98828-4 - MG Order Info: 3015-3 - TSH Result Comment: The validity of the calculated GFR GFRAA in patients over 70 years has not been determined. Clinical correlation is essential. Performed By: #### L 500.2500, L501.5200, L100.0500, L501.9520 #### [facility] Laboratory [address] [place], [address] EST GFR - AA 82 mL/min Normal >60 [facility] Comment on above: Order Comment: Order Date: 05/18/24 Order Info: 666-08 - BMP Order Info: 79217-0 - MG Order Info: 6-3 - TSH Result Comment: Afri can Tongan GFR Calc Performed By: #### L 500.2500, L501.5200, L100.0500, L501.9520 #### [facility] [address] [place], [address] GAP 7 Normal 5-15 [facility] Comment on above: Order Comment: Order Date: 05/18/24 Order Info: 666-08 - BMP Order Info: [id number] - MG Order Info: 3015-3 - TSH Performed By: #### L 500.2500, L501.5200, L100.0500, L501.9520 #### [facility] [address] [place], [address] GFR/1.73 sq M.predicted among non-blacks MDRD (S/P/Bld) [Vol rate/Area] 68 mL/min/{1.73_m2} Normal >60 [facility] Comment on above: Order Comment: Order Date: 05/18/24 Order Info: 06 - BMP Order Info: 88611-9 - MG Order Info: 3016-3 - TSH Result Comment: Non- GFR Calc Performed By: #### L 500.2500, L501.5200, L100.0500, L501.9520 #### [facility] Laboratory [address] [place], [address] Glucose [Mass/Vol] 95 mg/dL Normal 74-106 [facility] Comment on above: Order Comment: Order Date: 05/18/24 Order Info: 666-08 - BMP Order Info: 95021-6 - MG Order Info: 3 - TSH Performed By: #### L 500.2500, L501.5200, L100.0500, L501.9520 #### [facility] [address] [place], [address] Potassium [Moles/Vol] 4.6 mmol/L Normal 3.5-5.1 [facility] Comment on above: Order Comment: Order Date: 05/18/24 Order Info: 666-08 - BMP Order Info: 17869-9 - MG Order Info: 3015-10 - TSH Performed By: #### L 500.2500, L501.5200, L100.0500, L501.9520 #### [facility] Laboratory [address] [place], [address] Sodium [Moles/Vol] 138 mmol/L Normal 136-145 [facility] Comment on above: Order Comment: Order Date: 05/18/24 Order Info: 666-08 - BMP Order Info: [id number] - MG Order Info: 3 - TSH Performed By: #### L 500.2500, L501.5200, L100.0500, L501.9520 #### [facility] Laboratory [address] [place], [address] Urea nitrogen [Mass/Vol] 12 mg/dL Normal 7-18 [facility] Comment on above: Order Comment: Order Date: 05/18/24 Order Info: 666-08 - BMP Order Info: [id number] - MG Order Info: 3 - TSH Performed By: #### L 500.2500, L501.5200, L100.0500, L501.9520 #### [facility] [address] [place], [address] CBC-Complete Blood Cnt No Di ffon 05-18-2024 Erythrocyte distribution width (RBC) [Ratio] 13.9 % Normal 11.6-14.6 [facility] Comment on above: Order Comment: Order Date: 05/18/24 Order Info: [id number] - CBC Performed By: #### L 500.2500, L501.5200, L100.0500, L501.9520 #### [facility] Laboratory [address] [place], [address] Hematocrit (Bld) [Volume fraction] 41.2 % Normal 37-47 [facility] Comment on above: Order Comment: Order Date: 05/18/24 Order Info: [id number] - CBC Performed By: #### L 500.2500, L501.5200, L100.0500, L501.9520 #### [facility] Laboratory [address] [place], [address] Hemoglobin (Bld) [Mass/Vol] 13.0 g/dL Normal 12.0-15.0 [facility] Comment on above: Order Comment: Order Date: 05/18/24 Order Info: [id number] - CBC Performed By: #### L 500.2500, L501.5200, L100.0500, L501.9520 #### [facility] Laboratory [address] [place], [address] MCH (RBC) [Entitic mass] 29.5 pg Normal 27.0-32.0 [facility] Comment on above: Order Comment: Order Date: 05/18/24 Order Info: [id number] - CBC Performed By: #### L 500.2500, L501.5200, L100.0500, L501.9520 #### [facility] Laboratory [address] [place], [address] MCHC (RBC) [Mass/Vol] 31.6 g/dL Low 32-36 [facility] Comment on above: Order Comment: Order Date: 05/18/24 Order Info: [id number] - CBC Performed By: #### L 500.2500, L501.5200, L100.0500, L501.9520 #### [facility] Laboratory [address] [place], [address] MCV (RBC) [Entitic vol] 93.6 fL Normal 81-99 [facility] Comment on above: Order Comment: Order Date: 05/18/24 Order Info: [id number] - CBC Performed By: #### L 500.2500, L501.5200, L100.0500, L501.9520 #### [facility] Laboratory [address] [place], [address] Platelet mean volume (Bld) [Entitic vol] 10.8 fL Normal 6.2-12.0 [facility] Comment on above: Order Comment: Order Date: 05/18/24 Order Info: [id number] - CBC Performed By: #### L 500.2500, L501.5200, L100.0500, L501.9520 #### [facility] Laboratory [address] [place], [address] Platelets (Bld) [#/Vol] 290 10*3/uL Normal 150-450 [facility] Comment on above: Order Comment: Order Date: 05/18/24 Order Info: [id number] - CBC Performed By: #### L 500.2500, L501.5200, L100.0500, L501.9520 #### [facility] Laboratory [address] [place], [address] RBC (Bld) [#/Vol] 4.40 10*6/uL Normal 4.2-5.4 [facility] Comment on above: Order Comment: Order Date: 05/18/24 Order Info: [id number] - CBC Performed By: #### L 500.2500, L501.5200, L100.0500, L501.9520 #### [facility] Laboratory [address] [place], [address] RDW SD 47.8 fl High 35.1-43.9 [facility] Comment on above: Order Comment: Order Date: 05/18/24 Order Info: [id number] - CBC Performed By: #### L 500.2500, L501.5200, L100.0500, L501.9520 #### [facility] Laboratory [address] [place], [address] WBC (Bld) [#/Vol] 10.1 10*3/uL Normal 4.4-11.0 [facility] Comment on above: Order Comment: Order Date: 05/18/24 Order Info: [id number] - CBC Performed By: #### L 500.2500, L501.5200, L100.0500, L501.9520 #### [facility] Laboratory [address] [place], [address] Magnesiumon 05-18-2024 Magnesium [Mass/Vol] 2.3 mg/dL Normal 1.6-2.6 [facility] Comment on above: Order Comment: Order Date: 05/18/24Order Info: 0667-1 - BMPOrder Info: [id number] - MGOrder Info: 3016-3 - TSH Performed By: #### L 500.2500, L501.5200, L100.0500, L501.9520 ####[facility] [address] [place], [address] Thyroid Stim Hormone (TSH)on 05-18-2024 TSH 1.610 uIU/mL Normal 0.358-3.74 0 [facility] Comment on above: Order Comment: Order Date: 05/18/24Order Info: 0667-1 - BMPOrder Info: [id number] - MGOrder Info: 3016-3 - TSH Performed By: #### L 500.2500, L501.5200, L100.0500, L501.9520 ####[facility] [address] [place], [address] Office Visit Reporton 2023 Office Visit Report [facility] [address] [place] [address] OFFICE VISIT Date of Service: 04/22/24 MR#: [id number] Acct: [id number] Patient: TANYA ROLLINS Rep #: [id number] : 1950 Provider: Dr. Roberto Carlos connors MD Age/Sex: 73/F Location: [facility]. Status: Signed Intake Vital Signs 04/13/24 13:30 04/22/24 09:01 Height 5 ft 4 in 5 ft 4 in Weight: 125 lb 10 oz BMI 21.5 BP 122/80 H Blood Pressure Location Lt brachial Position Sitting Respiration 17 Pulse 65 Pulse Source Monitor Temp 97.8 F Temp Source Temporal Pulse Oximetry (%) 98 Oxygen Delivery Method room air Intake Visit Reasons: B12 inject Chief Complaint: diarrhea Allergies codeine Allergy (Verified 04/13/24 13:28) Hives morphine Allergy (Verified 04/13/24 13:28) Hives Opioids - Morphine Analogues Allergy (Verified 04/13/24 13:28) Hives sotalol Adverse Reaction (Unknown, Verified 04/13/24 13:28) Confusion aminocaproic acid (From Amicar) Adverse Reaction (Verified 04/13/24 13:28) NEEDS FOLLOW-UP bupropion Adverse Reaction (Verified 04/13/24 13:28) Nausea cephalexin Adverse Reaction (Verified 04/13/24 13:28) Upset Stomach citric acid Adverse Reaction (Verified 04/13/24 13:28) sore throat duloxetine (From Cymbalta) Adverse Reaction (Verified 04/13/24 13:28) Other Food Allergies: Uncoded Adverse Reaction (Verified 04/13/24 13:28) Nausea/Vom/Diarrhea levetiracetam (From Keppra) Adverse Reaction (Verified 04/13/24 13:28) Other Have you fallen in the past year?: Yes Office Meds cyanocobalamin (vitamin B-12) 1,000 mcg/mL injection solution Performing Provider: Roberto Carlos Lima MD Performing Location: [facility] Administered by: Shirley Davidson on 04/22/24 09:11 Dose Route Admin Location Dispensed Lot Number Expiration Date [facility] Man ufacturer 1,500 mcg IM left deltoid 1.5 mL [id number] 06/03/26 07104-708-97 CJ WANG Comments: The patient presents for B12 injection for treatment of fatigue. She has fatigue. Her last B12 injection was of benefit for fatigue. The patient is awake and alert. B12 1500mcg IM was administered today. There were no complications. Assessment and Plan Assessment and Plan (1) Fatigue: Status: Chronic Qualifiers: Fatigue type: chronic, unspecified Qualified Code(s): R53.82 - Chronic fatigue, unspecified Orders: Orders Vitamin B12 Today R53.82 - Chronic fatigue, unspecified Clinical Quality Measures Falls Risk Screening/Assistive Devices Have you fallen in the past year?: Yes 04/22/24 1232 Date Roberto Carlos Lima MD Cosignzari Signature: Date (if applicable) CC: Normal [facility] 12 Lead EKGon 04-13-2024 12 Lead EKG [facility] Cardiovascular Services [address] [place] [address] 12 Lead EKG 04/13/24 1348 MR#: [id number] Acct: [id number] Name: TANYA ROLLINS Rep #: [id number] : 1950 73 From: Jose Enrique Prince MD Attending Dr: Inder Morel DO Status: DEP [place] Ordering Dr: Inder Morel DO Date: 04/13/24 Location: EN Sex: F C Admitted: Test Reason : PREOP Blood Pressure : / mmHG Vent. Rate : 081 BPM Atrial Rate : 312 BPM P-R Int : 000 ms QRS Dur : 112 ms QT Int : 390 ms P-R-T Axes : 091 -68 034 degrees QTc Int : 453 ms Atrial flutter with variable A-V block Pulmonary disease pattern Left anterior fascicular block Minimal voltage criteria for LVH, may be normal variant ( Richard product ) Septal infarct , age undetermined Cannot rule out Inferior infarct (masked by fascicular block?) , age undetermined Abnormal ECG When compared with ECG of 09-MAY-2022 18:50, Atrial flutter has replaced Sinus rhythm T wave inversion no longer evident in Inferior leads Confirmed by SURESH PICHARDO, JOSE ENRIQUE ([id number]), avid editor GISSEL AUGUSTINYA ([id number]) on 04/15/2024 11:29:12 AM Referred By: Dhiraj Patel Confirmed By:JOSE ENRIQUE PRINCE MD 04/15/24 1129 Date Jose Enrique Prince MD CC: Dr. Haroon aPtel MD; Inder Morel DO Signed Normal [facility] Colonoscopy Reporton 024 Colonoscopy Report [facility] Medical Records Department [address] [place] [address] Colonoscopy Report MR#: [id number] Acct: [id number] Name: TANYA ROLLINS Rep #: [id number] : 1950 73 From: Inder Morel DO PCP: Dr. Haroon Patel MD Status:[facility] Patient Name: Tanya Rollins Procedure Date: 04/13/2024 2:50 PM Date of : 1950 Age: 73 Procedure: Colonoscopy Indications: Chronic diarrhea Providers: Inder oMrel DO Medicines: Monitored Anesthesia Care Patient Profile: This is a 73 year old female. Refer to note in patient chart for documentation of history and physical. Patient has symptoms of chronic epigastric abdominal pain and chronic dysphagia. Last Colonoscopy: date unknown. Unable to locate last colonoscopy report. Complications: No immediate complications. Procedure: Pre-Anesthesia Assessment: - Prior to the procedure, a History and Physical was performed, and patient medications and allergies were reviewed. The patient is competent. The risks and benefits of the procedure and the sedation options and risks were discussed with the patient. All questions were answered and informed consent was obtained. Patient identification and proposed procedure were verified by the physician in the pre-procedure area. Mental Status Examination: alert and oriented. Airway Examination: normal oropharyngeal airway and neck mobility. Respiratory Examination: clear to auscultation. CV Examination: normal. Prophylactic Antibiotics: The patient does not require prophylactic antibiotics. Prior Anticoagulants: The patient has taken no anticoagulant or antiplatelet agents. ASA Grade Assessment: II - A patient with mild systemic disease. After reviewing the risks and benefits, the patient was deemed in satisfactory condition to undergo the procedure. The anesthesia plan was to use monitored anesthesia care (MAC). Immediately prior to administration of medications, the patient was re-assessed for adequacy to receive sedatives. The heart rate, respiratory rate, oxygen saturations, blood pressure, adequacy of pulmonary ventilation, and response to care were monitored throughout the procedure. The physical status of the patient was re-assessed after the procedure. After I obtained informed consent, the scope was passed under direct vision. Throughout the procedure, the patient's blood pressure, pulse, and oxygen saturations were monitored continuously. The colonoscope was introduced through the anus and advanced to the terminal ileum. The colonoscopy was performed without difficulty. The patient tolerated the procedure well. The quality of the bowel preparation was adequate. The terminal ileum, ileocecal valve, appendiceal orifice, and rectum were photographed. Scope In: 2:52:07 PM Scope Withdrawal Time 0 hours 9 minutes 40 seconds Scope Out: 3:12:44 PM Total Procedure Duration Time 0 hours 20 minutes 37 seconds Findings: The perianal and digital rectal examinations were normal. A 5 mm polyp was found in the recto-sigmoid colon. The polyp was sessile. The polyp was removed with a cold snare. Resection and retrieval were complete. Verification of patient identification for the specimen was done. Estimated blood loss was minimal. An area of mildly congested mucosa was found in the rectum, in the recto-sigmoid colon, in the sigmoid colon and in the descending colon. Biopsies were taken with a cold forceps for histology. Verification of patient identification for the specimen was done. Estimated blood loss was minimal. The terminal ileum appeared normal. Impression: - One 5 mm polyp at the recto-sigmoid colon, removed with a cold snare. Resected and retrieved. - Congested mucosa in the rectum, in the recto-sigmoid colon, in the sigmoid colon and in the descending colon. Biopsied. - The examined portion of the ileum was normal. Recommendation: - Discharge patient to home. - Resume previous diet. - Continue present medications. - Await pathology results. - Repeat colonoscopy in 5 years for surveillance. Procedure Code(s): --- Professional --- 42305, Colonoscopy, flexible; with removal of tumor(s), polyp(s), or other lesion(s) by snare technique 08145, 59, Colonoscopy, flexible; with biopsy, single or multiple CPT copyright 2021 [employer]. All rights reserved. The codes documented in this report are preliminary and upon special service representative review may be revised to meet current compliance requirements. Inder Morel DO 04/13/2024 3:29:05 PM This report has been signed electronically. Number of Addenda: 0 Note Initiated On: 04/13/2024 2:50 PM 04/13/24 1529 Date Inder Morel DO Cosigner Signature: Date (if indica (more content not included)... Normal [facility] EGD Reporton 04-13-2024 EGD Report [facility] Medical Records Department [address] [place] [address] EGD Report MR#: [id number] Acct: [id number] Name: RIATANYA Rep #: [id number] : 1950 73 From: Inder Morel DO PCP: Dr. Haroon Patel MD Status:[facility] Patient Name: Tanya Rollins Procedure Date: 04/13/2024 2:34 PM Date of : 1950 Age: 73 Procedure: Upper GI endoscopy Indications: Epigastric abdominal pain, Functional Dyspepsia, Dysphagia Providers: Inder Morel DO Medicines: Monitored Anesthesia Care Patient Profile: This is a 73 year old female. Refer to note in patient chart for documentation of history and physical. Patient has symptoms of chronic epigastric abdominal pain and chronic dysphagia. Complications: No immediate complications. Procedure: Pre-Anesthesia Assessment: - Prior to the procedure, a History and Physical was performed, and patient medications and allergies were reviewed. The patient is competent. The risks and benefits of the procedure and the sedation options and risks were discussed with the patient. All questions were answered and informed consent was obtained. Patient identification and proposed procedure were verified by the physician in the pre-procedure area. Mental Status Examination: alert and oriented. Airway Examination: normal oropharyngeal airway and neck mobility. Respiratory Examination: clear to auscultation. CV Examination: normal. Prophylactic Antibiotics: The patient does not require prophylactic antibiotics. Prior Anticoagulants: The patient has taken no anticoagulant or antiplatelet agents. ASA Grade Assessment: II - A patient with mild systemic disease. After reviewing the risks and benefits, the patient was deemed in satisfactory condition to undergo the procedure. The anesthesia plan was to use monitored anesthesia care (MAC). Immediately prior to administration of medications, the patient was re-assessed for adequacy to receive sedatives. The heart rate, respiratory rate, oxygen saturations, blood pressure, adequacy of pulmonary ventilation, and response to care were monitored throughout the procedure. The physical status of the patient was re-assessed after the procedure. After obtaining informed consent, the endoscope was passed under direct vision. Throughout the procedure, the patient's blood pressure, pulse, and oxygen saturations were monitored continuously. The colonoscope was introduced through the mouth, and advanced to the second part of duodenum. The upper GI endoscopy was accomplished without difficulty. The patient tolerated the procedure well. Scope In: 2:45:52 PM Scope Out: 2:49:58 PM Total Procedure Duration Time 0 hours 4 minutes 6 seconds Findings: LA Grade B (one or more mucosal breaks greater than 5 mm, not extending between the tops of two mucosal folds) esophagitis with no bleeding was found 36 to 38 cm from the incisors. Biopsies were taken with a cold forceps for histology. Verification of patient identification for the specimen was done. Estimated blood loss was minimal. Diffuse mild inflammation characterized by congestion (edema), erosions and erythema was found in the gastric body. Biopsies were taken with a cold forceps for histology. Verification of patient identification for the specimen was done. Estimated blood loss was minimal. Multiple diffuse erosions without bleeding were found in the first portion of the duodenum. Biopsies were taken with a cold forceps for histology. Verification of patient identification for the specimen was done. Estimated blood loss was minimal. Impression: - LA Grade B reflux esophagitis with no bleeding. Biopsied. - Chronic gastritis. Biopsied. - Duodenal erosions without bleeding. Biopsied. Recommendation: - Discharge patient to home. - Resume previous diet. - Continue present medications. - Await pathology results. Procedure Code(s): --- Professional --- 46474, Esophagogastroduodenoscopy, flexible, transoral; with biopsy, single or multiple CPT copyright 2021 [employer]. All rights reserved. The codes documented in this report are preliminary and upon special service representative review may be revised to meet current compliance requirements. Inder Morel DO 04/13/2024 3:24:00 PM This report has been signed electronically. Number of Addenda: 0 Note Initiated On: 04/13/2024 2:34 PM 04/13/24 1524 Date Inder Morel DO Cosign Signature: Date (if indicated) CC: Dr. Haroon Patel MD; Inder Morel DO Date Dictated: 04/13/24 1434 Date Transcribed: Gifted Program Teacher: WILLIAM Signed Normal [facility] H Pylori (initial)on 024 H Pylori (initial) ------- Patient Age/Sex Location Account Attending Physician TANYA ROLLINS 73/F EN [id number] Inder Morel DO Specimen: [id number] Received: 04/14/24 Status: YOGESH Magallon Num: [id number] Spec Type: IMMUNO Subm Dr: Inder Morel DO PHYSICIAN INSTITUTION [place] [address] SPECIMEN INFORMATION: Tissue Source: A- Gastric body biopsy Clinical Info: Diarrhea, dysphagia Specimen Number: [id number] CPT code: 43624 METHODOLOGY: Deparaffinized sections of prefer/formalin-fixed tissue or PAP/DQ stained slides are incubated with monoclonal/polyclonal antibodies/oligonucleotide probes. Localization is made via biotin free immunoperoxidase method. Appropriate controls are performed and reacted as expected. Results on target cell population are indicated in the following table: RESULTS: ANTIBODY / CLONE RESULT Block A H Pylori (polyclonal) negative These tests were developed and their performance characteristics determined by [facility] Laboratory. They may not have been cleared or approved by the U.S. Food and Drug Administration. The FDA has determined that such clearance or approval is not necessary. The above immunohistochemical/dualISH markers are ordered and reviewed by the Pathologist. INTERPRETATION: A. Gastric body, biopsy: Negative for Helicobacter pylori organisms. AM/ 04/15/2024 Signed (signature on file) Dr. Sudhakar Thornton DO 04/15/24 1259 Normal [facility] Comment on above: Performed By: #### P H.PYLORI ####[facility] [id number] [place], [address] [email or web address] 04-13-2024 MR/POSTOP.ANE [facility] Medical Records Department [address] [place] [address] Anesthesia Postop Eval I 04/13/24 1525 MR#: [id number] Acct: [id number] Name: TANYA ROLLINS Rep #: [id number] : 1950 73 From: Troy Whitehead PCP: Dr. Haroon Patel MD Status:REG [facility] Y Race: C Location: [place] [address] Anesthesia: Postop Eval I Current Vital Signs Temperature: 97 F Pulse Rate: 72 Blood Pressure: 107/67 Respiratory Rate: 16 Pulse Ox: 99 Oxygen Delivery Method: Room Air Assessment Airway patent: Yes Spontaneous unlabored respirations: Yes Mental status: Asleep nausea: No Vomiting: No Anesthesia Complication: No Fluid Hydration Crystalloid volume administer (ml): 800 Total IV fluid infused: 800 Progress Note Anesthesia document: Postop Eval 1 completed: Yes 04/13/24 1526 Date Troy Edge Signature: Date CC: Signed Normal [facility] [id number] 04-13-2024 MR/POSTOPAN2 [facility] Medical Records Department [address] [place] [address] Anesthesia Postop Eval II 04/13/24 1638 MR#: [id number] Acct: [id number] Name: TANYA ROLLINS Rep #: [id number] : 1950 73 From: Chad Cavanaugh MD PCP: Dr. Haroon Patel MD Status:DEP [facility] Y Race: C Location: EN Anesthesia Postop Eval I Sum Postop Eval Completion status Anesthesia document: Postop Eval 1 completed: Yes Anesthesia Postop Eval I Summary Anesthesia Postop Eval I Summary: Anesthesia Postop Eval I: Assessment Summary Airway patent Yes 04/13/24 15:26 [email or web address] Spontaneous unlabored Yes 04/13/24 15:26 [email or web address] respirations Mental status Asleep 04/13/24 15:26 [email or web address] nausea No 04/13/24 15:26 [email or web address] Vomiting No 04/13/24 15:26 [email or web address] Anesthesia Postop Eval I: Fluid Summary Crystalloid volume administer 800 04/13/24 15:26 [email or web address] (ml) Colloids volume administered ( ml) Blood Product volume administered (ml) Total IV fluid infused 800 04/13/24 15:26 [email or web address] Anesthesia Postop Eval I: Summary Notes Anesthesia Complication No 04/13/24 15:26 [email or web address] Anesthesia Complication Comment: Post-operative progress note Anesthesia: Postop Eval II Evaluation Mental status: Awake and Calm Pain Level: 0 nausea: No Vomiting: No Complications Anesthesia Complication: No 04/13/241638 Date Chad Cavanaugh MD Cosigner Signature: Date CC: Signed Normal [facility] Special Stain Group Ion 04-04 Special Stain Group I --------- Patient Age/Sex Location Account Attending Physician TANYA ROLLINS 73/F EN [id number] Inder Morel DO Specimen: [id number] Received: 04/13/24 Status: YOGESH Sherita Num: [id number] Spec Type: COLON BX Subm Dr: Inder Morel DO HEADER OPERATION: Colonoscopy, EGD biopsy PRE-OP DIAGNOSIS: Diarrhea, dysphagia TISSUE SUBMITTED: A- Gastric body biopsy, B- Distal esophagus biopsy, C- Sigmoid polyp, D- Rectal biopsy MICROSCOPIC DIAGNOSIS A. Gastric body, biopsy: Mild chronic gastritis. See comment. B. Distal esophagus, biopsy: Gastroesophageal junction mucosa with mild chronic inflammation. No evidence of goblet cell metaplasia. See comment. C. Sigmoid polyp, biopsy: Hyperplastic polyp. D. Rectum, biopsy: No pathologic change. AM/mr 04/15/2024 COMMENT A. The results of immunohistochemistry for Helicobacter pylori will be reported separately ([id number]). B. Alcian blue/PAS stain with matched control is used in the evaluation of the specimen. MICROSCOPIC DESCRIPTION Slides are reviewed. GROSS DESCRIPTION A. Received in fixative is one container labeled with the patient's name and designated Gastric body biopsy. The specimen consists of multiple irregular fragments of light watkins soft tissue that in aggregate measure 0.8 x 0.3 x 0.1 cm. The specimen is totally submitted in one cassette. B. Received in fixative is one container labeled with the patient's name and designated Distal esophagus biopsy. The specimen consists of two irregular fragments of light watkins soft tissue that in aggregate measure 0.8 x 0.4 x 0.1 cm. The specimen is totally submitted in one cassette. C. Received in fixative is one container labeled with the patient's name and designated Sigmoid polyp. The specimen consists of one irregular fragment of light watkins soft tissue Patient Age/Sex Location Account Attending Physician TANYA ROLLINS 73/F EN [id number] Inder Morel DO that measures 0.7 x 0.3 x 0.1 cm. The specimen is totally submitted in one cassette. D. Received in fixative is one container labeled with the patient's name and designated Rectal biopsy. The specimen consists of multiple irregular fragments of light watkins soft tissue that in aggregate measure 1.0 x 0.3 x 0.1 cm. The specimen is totally submitted in one cassette. 04/14/2024 TC:3 CPT:11116p4,62446 Patient Age/Sex Location Account Attending Physician TANYA ROLLINS 73/F EN [id number] Inder Morel DO Signed (signature on file) Dr. Sudhakar Thornton DO 04/16/24 0955 Normal [facility] Comment on above: Performed By: #### P SSI #### [facility] Laboratory [address] [place], [place], [address] Endocrinology Visit Reporton 03-26-2024 Endocrinology Visit Report [facility] [address] [place], [place] [address] OFFICE VISIT Date of Service: 03/26/24 MR#: [id number] Acct: [id number] Name: TANYA ROLLINS Rep #: [id number] : 1950 Provider: Cyn Cruz Age/Sex: 73/F Location: [facility] Status: Signed Intake Vital Signs 09/26/23 09:57 03/02/24 13:00 03/26/24 10:15 Height 5 ft 4 in 5 ft 4 in 5 ft 4 in Weight: 129 lb 3 oz 126 lb BMI 22.1 21.6 BP 124/70 H 111/70 Blood Pressure Location Lt brachial Lt brachial Position Sitting Sitting Respiration 17 Pulse 75 82 Pulse Source Monitor Monitor Temp 98.4 F Temp Source Temporal Pulse Oximetry (%) 99 95 Oxygen Delivery Method room air room air Intake Visit Reasons: 14 M FU, NS 01/29 Chief Complaint: Bone High Risk Case Manager Required: No Accompanied by: Self Is patient in pain?: Yes (Rt leg/chest) Pain scale (1-10): 2 Allergies codeine Allergy (Verified 03/26/24 10:18) Hives morphine Allergy (Verified 03/26/24 10:18) Hives Opioids - Morphine Analogues Allergy (Verified 03/26/24 10:18) Hives sotalol Adverse Reaction (Unknown, Verified 03/26/24 10:18) Confusion aminocaproic acid (From Amicar) Adverse Reaction (Verified 03/26/24 10:18) NEEDS FOLLOW-UP bupropion Adverse Reaction (Verified 03/26/24 10:18) Nausea cephalexin Adverse Reaction (Verified 03/26/24 10:18) Upset Stomach duloxetine (From Cymbalta) Adverse Reaction (Verified 03/26/24 10:18) Other Food Allergies: Uncoded Adverse Reaction (Verified 03/26/24 10:18) Nausea/Vom/Diarrhea levetiracetam (From Keppra) Adverse Reaction (Verified 03/26/24 10:18) Other Medications ???Medication ???Instructions ???Recorded ???Confirmed ???Type omeprazole 40 mg capsule,delayed 40 mg PO BID gerd/acid reflux 05/18/16 03/26/24 History release multivitamin,gq-eozx-ddzkcj ls 1 tab PO DAILY 05/31/19 03/26/24 History (Complete Multivitamin tablet) cholecalciferol (vitamin D3) 50 50 mcg PO DAILY 10/30/21 03/26/24 History mcg (2,000 unit) capsule (Vitamin D3) fluticasone propionate 50 2 spray intranasal DAILY PRN 05/15/22 03/26/24 History mcg/actuation nasal allergies spray,suspension metoprolol tartrate 50 mg tablet 50 mg PO BID 05/15/22 03/26/24 History potassium chloride 20 mEq 20 meq PO DAILY supplement 05/15/22 03/26/24 History tablet,extended release(part/cryst) denosumab 60 mg/mL subcutaneous 60 mg subcut [id number] BONES #1 mL 01/27/23 03/26/24 Rx syringe lamotrigine 25 mg tablet 50 mg (2 x 25 mg) PO BID #120 tabs 07/03/23 03/26/24 Rx memantine 14 mg capsule 14 mg PO DAILY #7 ea 03/02/24 03/26/24 Rx sprinkle,extended release 24hr memantine 21 mg capsule 21 mg PO DAILY #7 ea 03/02/24 03/26/24 Rx sprinkle,extended release 24hr memantine 28 mg capsule 28 mg PO DAILY #30 ea 03/02/24 03/26/24 Rx sprinkle,extended release 24hr memantine 7 mg capsule 7 mg PO DAILY #7 ea 03/02/24 03/26/24 Rx sprinkle,extended release 24hr colestipol 5 gram oral granules 5 g PO DAILY #500 grams 03/03/24 03/26/24 Rx acetaminophen 325 mg tablet 650 mg PO BID Pain 03/26/24 03/26/24 History Have you fallen in the past year?: No COUNTS INCLUDE 234 BEDS AT THE [facility] Medical History (Updated 04/08/24 @ 07:[address] Dorian Mckeon MD) Cataract, left eye Afib Essential hypertension Paroxysmal atrial fibrillation Osteoporosis Vitamin deficiency Osteoporosis Osteopenia Osteoarthritis Neuropathy Heart murmur Liver disease IBS (irritable bowel syndrome) Hepatitis C Gallstones Chronic bronchitis Bleeding disorder History of blood clots Arthritis History of blood transfusion Acute respiratory failure with hypoxia Sepsis Pneumonia Cardiac enzymes elevated Influenza A Anxiety and depression Narcolepsy Von Willebrand disease Rheumatoid arthritis Mental status change Surgical History History of colonoscopy ( 2010) History of esophagogastroduodenoscopy (EGD) ( 2005) History of total hysterectomy History of repair of ACL History of dilation and curettage History of cholecystectomy History of breast biopsy Family History Mother Endometrial cancer Breast cancer Ovarian cancer Respiratory disease Uncle Cardiac disease Sister Liver disease Hep C Father Depression Social History Smoking Status: Former smoker Tobacco: How many years used: 10 how long ago did patient quit smokin second hand exposure: No alcohol intake: never substance use type: does not use caffeine: Yes Type: coffee Number of servings: 2 HPI HPI Chief Complaint: Bone Details: TANYA ROLLINS, is a 73 F who presents to the office today for follow up. (more content not included)... Normal [facility] Stool gastrointestinal hemog lobin detection by immunologic methodOrdered By: Robert Patel on 09-29-2023 Lower GI hemoglobin IA Ql (Stl) [facility] Stool pancreatic elastase me asurement (mass/mass)Ordered By: Robert Patel on 09-29-2023 Elastase.pancreatic (Stl) [Mass/Mass] 431 >200 [facility] Comment on above: Result Units: ug Ingrid st./g Severe Pancreatic Insufficiency: <100 Moderate Pancreatic Insufficiency: 100 - 200 Normal: >200Performed at: - [facility] [id number] Director: Tiff Tanner MD, Phone: [phone] Basophil percentageOrdered B y: Robert Patel on 09-25-2023 Bilirubin [Mass/Vol] 0.40 mg/dL 0.20-1.00 [facility] Comment on above: For patients on eltr ombopag therapy, use of Dimension [place] TBIL is not recommended. Chloride [Moles/Vol] 102 mmol/L 98-107 [facility] Glucose [Mass/Vol] 101 mg/dL 74-106 [facility] Comment on above: Fasting Glucose resu lt from 100 to 125 mg/dL suggests IMPAIRED HOMEOSTASIS per A.D.A. criteria. Hemoglobin (Bld) [Mass/Vol] 12.6 g/dL 12.0-15.0 [facility] Potassium [Moles/Vol] 4.3 mmol/L 3.5-5.1 [facility] Protein [Mass/Vol] 6.9 g/dL 6.4-8.2 [facility] Sodium [Moles/Vol] 134 mmol/L 136-145 [facility] WBC (Bld) [#/Vol] 8.8 10*3/uL 4.4-11.0 [facility] Determination of erythrocyte mean corpuscular volume (MCV)Ordered By: Robert Patel on 09-25-2023 MCV (RBC) [Entitic vol] 92.8 fL 81-99 [facility] Erythrocyte distribution wid th ratioOrdered By: Robert Patel on 09-25-2023 Erythrocyte distribution width (RBC) [Ratio] 13.7 % 11.6-14.6 [facility] Erythrocyte distribution wid th standard deviationOrdered By: Robert Patel on 09-25-2023 Erythrocyte distribution width (RBC) [Entitic vol] 46.1 fL 35.1-43.9 [facility] Erythrocyte sedimentation ra teOrdered By: Robert Patel on 09-25-2023 ESR (Bld) [Velocity] 1 mm/h 0-30 [facility] Hematocrit Auto (Bld) [Volum e fraction]Ordered By: Robert Patel on 09-25-2023 Hematocrit (Bld) [Volume fraction] 39.8 % 37-47 [facility] Iron measurement (mass/mass) Ordered By: Robert Patel on 09-25-2023 Iron (Unsp spec) [Mass/Mass] 91 ug/dL 50-170 [facility] Laboratory - Chemistry and C hemistry - challengeOrdered By: Robert Patel on 09-25-2023 Albumin/Globulin [Mass ratio] 1.2 {ratio} 0.9-2.4 [facility] ALP [Catalytic activity/Vol] 51 U/L 45-117 [facility] ALT [Catalytic activity/Vol] 20 U/L 13-56 [facility] CO2 [Moles/Vol] 27.0 mmol/L 21.0-32.0 [facility] Cobalamin (Vitamin B12) [Mass/Vol] 484 pg/mL 211-911 [facility] [place] Ferritin [Mass/Vol] 128 ng/mL 8-252 [facility] Globulin (S) [Mass/Vol] 3.1 g/dL 2.2-4.2 [facility] [place] Urea nitrogen/Creatinine [Mass ratio] 10.5 mg/mg 10-20 [facility] [place] Laboratory - Hematology and Cell countsOrdered By: Robert Patel on 09-25-2023 MCH (RBC) [Entitic mass] 29.4 pg 27.0-32.0 [facility] [place] MCHC (RBC) [Mass/Vol] 31.7 g/dL 32-36 [facility] Platelet mean volume (Bld) [Entitic vol] 10.3 fL 6.2-12.0 [facility] [place] Platelets (Bld) [#/Vol] 308 10*3/uL 150-450 [facility] [place] No Panel InformationOrdered By: Robert Patel on 09-25-2023 C-Reactive Protein Extended Range 3.07 mg/L 0.0-3.0 [facility] [place] Comment on above: C-Reactive Protein ( CRP) provides useful information for thediagnosis, therapy and monitoring of inflammatory processesand associated diseases. For the evaluation of Relative Riskfor Cardiovascular Disease, a High Sensitivity CRP (HSCRP)should be ordered. Estimated GFR (MDRD) Amer 83 mL/min >60 [facility] [place] Comment on above: GFR Calc Estimated GFR (MDRD) Non-Af Amer 69 mL/min >60 [facility] [place] Comment on above: Non- GFR Calc Vitamin D 25-Hydroxy 47.4 ng/mL [facility] Comment on above: Vitamin D 25(OH) Sta tus Range Deficiency <20 ng/mL (50nmol/L) Insufficiency 20 - 30 ng/mL (50 - 75 nmol/L) Sufficiency 30 - 100 ng/mL (75 - 250 nmol/L) Toxicity >100 ng/mL (>250 nmol/L) RBC Auto (Bld) [#/Vol]Ordere d By: Robert Patel on 09-25-2023 RBC (Bld) [#/Vol] 4.29 10*6/uL 4.2-5.4 [facility] Serum or plasma calcium natalia urement (mass/volume)Ordered By: Robert Patel on 09-25-2023 Calcium [Mass/Vol] 8.9 mg/dL 8.5-10.1 [facility] Serum or plasma creatinine m easurement (mass/volume)Ordered By: Robert Patel on 09-25-2023 Creatinine [Mass/Vol] 0.86 mg/dL 0.55-1.02 [facility] Comment on above: The validity of the calculated GFR & GFRAA in patients over 70 years has not been determined. Clinical correlation is essential. Serum or plasma thyroid stim ulating hormone (TSH) measurement (units/volume)Ordered By: Robert Patel on 09-25-2023 TSH Qn 1.79 uIU/mL 0.358-3.74 [facility] [place] Serum or plasma urea nitroge n measurement (mass/volume)Ordered By: Robert Patel on 09-25-2023 Urea nitrogen [Mass/Vol] 9 mg/dL 7-18 [facility] [place] Thin prep Papanicolaou smear with manual screeningOrdered By: Robert Patel on 09-25-2023 Thin prep Papanicolaou smear with manual screening 3.8 g/dL 3.2-5.0 [facility] [place] Thin prep Papanicolaou smear with manual screening 17 U/L 15-37 [facility] [place] Thin prep Papanicolaou smear with manual screening 5 5-15 [facility] [place] Basophil percentageOrdered B y: Roberto Carlos [place] on 07-03-2023 Ammonia (P) [Moles/Vol] 32.0 umol/L - [facility] [place] Serum or plasma lamotrigine measurement (mass/volume)Ordered By: Roberto Carlos [place] on 07-03-2023 lamoTRIgine [Mass/Vol] 2.3 ug/mL 2.0-20.0 [facility] Comment on above: Detection Limit = 1. 0Performed at: [address] [id number] Director: Tiff Tanner MD, Phone: [phone] Basophil percentageOrdered B y: Robert Patel on 02-17-2023 Chloride [Moles/Vol] 102 mmol/L 98-107 [facility] Glucose [Mass/Vol] 92 mg/dL 74-106 [facility] Potassium [Moles/Vol] 4.2 mmol/L 3.5-5.1 [facility] Sodium [Moles/Vol] 136 mmol/L 136-145 [facility] WBC (Bld) [#/Vol] 9.9 10*3/uL 4.4-11.0 [facility] Blood erythrocytes count (nu mber/volume)Ordered By: Robert Patel on 02-17-2023 RBC (Bld) [#/Vol] 4.30 10*6/uL 4.2-5.4 [facility] Blood hemoglobin measurement (mass/volume)Ordered By: Robert Patel on 02-17-2023 Hemoglobin (Bld) [Mass/Vol] 12.9 g/dL 12.0-15.0 [facility] [place] Blood platelet mean volumeOr dered By: Robert Patel on 02-17-2023 Platelet mean volume (Bld) [Entitic vol] 11.0 fL 6.2-12.0 [facility] [place] Determination of erythrocyte mean corpuscular volume (MCV)Ordered By: Robert Patel on 02-17-2023 MCV (RBC) [Entitic vol] 91.4 fL 81-99 [facility] [place] Hematocrit Auto (Bld) [Volum e fraction]Ordered By: Robert Patel on 02-17-2023 Hematocrit (Bld) [Volume fraction] 39.3 % 37-47 [facility] [place] Iron measurement (mass/mass) Ordered By: Robert Patel on 02-17-2023 Iron (Unsp spec) [Mass/Mass] 77 ug/dL 50-170 [facility] [place] Laboratory - Chemistry and C hemistry - challengeOrdered By: Robert Patel on 02-17-2023 CO2 [Moles/Vol] 28.0 mmol/L 21.0-32.0 [facility] [place] Cobalamin (Vitamin B12) [Mass/Vol] 684 pg/mL 211-911 [facility] [place] Urea nitrogen/Creatinine [Mass ratio] 9.2 mg/mg 10-20 [facility] [place] Laboratory - Hematology and Cell countsOrdered By: Robert Patel on 02-17-2023 Erythrocyte distribution width (RBC) [Entitic vol] 44.7 fL 35.1-43.9 [facility] [place] Erythrocyte distribution width (RBC) [Ratio] 13.4 % 11.6-14.6 [facility] [place] MCH (RBC) [Entitic mass] 30.0 pg 27.0-32.0 [facility] [place] MCHC Auto (RBC) [Mass/Vol]Or dered By: Robert Patel on 02-17-2023 MCHC (RBC) [Mass/Vol] 32.8 g/dL 32-36 [facility] No Panel InformationOrdered By: Robret Patel on 02-17-2023 Estimated GFR (MDRD) Amer 97 mL/min >60 [facility] [place] Comment on above: GFR Calc Estimated GFR (MDRD) Non-Af Amer 80 mL/min >60 [facility] [place] Comment on above: Non- GFR Calc Thyroid Stimulating Hormone (TSH) 1.80 uIU/mL 0.358-3.74 [facility] [place] Vitamin D 25-Hydroxy 71.1 ng/mL [facility] Comment on above: Vitamin D 25(OH) Sta tus Range Deficiency <20 ng/mL (50nmol/L) Insufficiency 20 - 30 ng/mL (50 - 75 nmol/L) Sufficiency 30 - 100 ng/mL (75 - 250 nmol/L) Toxicity >100 ng/mL (>250 nmol/L) Platelets bldOrdered By: Zachery Patel on 02-17-2023 Platelets (Bld) [#/Vol] 313 10*3/uL 150-450 [facility] [place] Serum or plasma calcium natalia urement (mass/volume)Ordered By: Robert Patel on 02-17-2023 Calcium [Mass/Vol] 9.2 mg/dL 8.5-10.1 [facility] Serum or plasma creatinine m easurement (mass/volume)Ordered By: Robert Patel on 02-17-2023 Creatinine [Mass/Vol] 0.76 mg/dL 0.55-1.02 [facility] Comment on above: The validity of the calculated GFR & GFRAA in patients over 70 years has not been determined. Clinical correlation is essential. Serum or plasma ferritin ceasar surement (mass/volume)Ordered By: Robert Patel on 02-17-2023 Ferritin [Mass/Vol] 123 ng/mL 8-252 [facility] Serum or plasma urea nitroge n measurement (mass/volume)Ordered By: Robert Patel on 02-17-2023 Urea nitrogen [Mass/Vol] 7 mg/dL 7-18 [facility] [place] Thin prep Papanicolaou smear with manual screeningOrdered By: Robert Patel on 02-17-2023 Thin prep Papanicolaou smear with manual screening 6 5-15 [facility] [place] Thin prep Papanicolaou smear with manual screening 282 mOsm/KG 280-301 [facility] [place] ED Nursing Noteon 01-08-2023 ED Nursing Note Pt came to triage wi ndow stating they were leaving Florina Haile RN 01/08/23 0339 [facility] 24 hour urine free cortisol measurement (mass/time)Ordered By: Dr. Patel on 12-06-2022 Cortisol Free (24H U) [Mass/Time] Not Reportable [facility] [place] Quantitative urine free nisha isol measurement (mass/volume)Ordered By: Dr. Patel on 12-06-2022 Cortisol Free (U) [Mass/Vol] See comment [facility] [place] Comment on above: TEST RESULTS LIMITSF ree Cortisol, UrineTest Current Result and Flag Previous Result and Date Units Reference IntervalFree Cortisol, Urine01 37 High ug/24 hrReference Range:Adult Females: 10 - 34Pregnancy: 16 - 60Free Cortisol, Urine 01 4.5 ug/dLThis test was developed and its performance characteristicsdetermined by [facility]. It has not been cleared or approvedby the Food and Drug Administration.Free Cortisol/CreatinineRat. 01 100 High ug/gReference Range:Adult Females: 9 - 32 : 14 - 5924 hr Creatinine, Urine01 371 Low mg/24 hrReference Range:Females: 800 - 1800Creatinine, Urine 01 45 mg/dL TESTING PERFORMED AT [facility]. ORIGINAL REPORT ON FILE IN LAB CONTAINS ADDITIONAL TEST SITE INFORMATION. Serum or plasma cortisol ceasar surement (mass/volume)Ordered By: Dr. Patel on 12-03-2022 Cortisol [Mass/Vol] 12.00 ug/dL 3.44-22.45 [facility] Comment on above: Adult (AM) 5.27 - 22 .45 ug/dL Adult (PM) 3.44 - 16.76 ug/dLPlease note revised CORTISOL reference range effective 2019. Absolute lymphocyte countOrd ered By: Dr. Patel on 11-28-2022 Lymphocytes Auto (Unsp spec) [#/Vol] 1.80 10*3/uL 0.83-4.51 [facility] [place] Basophil percentageOrdered B y: Dr. Patel on 11-28-2022 Basophils/100 WBC (Bld) 0.5 % 0-1 [facility] [place] Bilirubin [Mass/Vol] 0.50 mg/dL 0.20-1.00 [facility] Comment on above: For patients on eltr ombopag therapy, use of Dimension [place] TBIL is not recommended. Chloride [Moles/Vol] 98 mmol/L 98-107 [facility] Eosinophils/100 WBC (Bld) 0.8 % 0-5 [facility] [place] Glucose [Mass/Vol] 82 mg/dL 74-106 [facility] Neutrophils (Bld) [#/Vol] 6.5 10*3/uL 2.0-7.7 [facility] [place] Neutrophils/100 WBC (Bld) 69.1 % 47-70 [facility] [place] Potassium [Moles/Vol] 4.1 mmol/L 3.5-5.1 [facility] Protein [Mass/Vol] 7.4 g/dL 6.4-8.2 [facility] Sodium [Moles/Vol] 130 mmol/L 136-145 [facility] WBC (Bld) [#/Vol] 9.5 10*3/uL 4.4-11.0 [facility] Blood erythrocytes count (nu mber/volume)Ordered By: Dr. Patel on 11-28-2022 RBC (Bld) [#/Vol] 4.60 10*6/uL 4.2-5.4 [facility] Blood hemoglobin measurement (mass/volume)Ordered By: Dr. Patel on 11-28-2022 Hemoglobin (Bld) [Mass/Vol] 13.2 g/dL 12.0-15.0 [facility] [place] Blood lymphocytes/100 leukoc ytesOrdered By: Dr. Patel on 11-28-2022 Lymphocytes/100 WBC (Bld) 19.0 % 19-41 [facility] [place] Blood monocytes/100 leukocyt esOrdered By: Dr. Patel on 11-28-2022 Monocytes/100 WBC (Bld) 10.2 % 0-10 [facility] [place] Blood platelet mean volumeOr dered By: Dr. Patel on 11-28-2022 Platelet mean volume (Bld) [Entitic vol] 10.9 fL 6.2-12.0 [facility] [place] Determination of erythrocyte mean corpuscular volume (MCV)Ordered By: Dr. Patel on 11-28-2022 MCV (RBC) [Entitic vol] 87.8 fL 81-99 [facility] [place] Erythrocyte sedimentation ra teOrdered By: Dr. Patel on 11-28-2022 ESR (Bld) [Velocity] 4 mm/h 0-30 [facility] Hematocrit Auto (Bld) [Volum e fraction]Ordered By: Dr. Patel on 11-28-2022 Hematocrit (Bld) [Volume fraction] 40.4 % 37-47 [facility] [place] Laboratory - Chemistry and C hemistry - challengeOrdered By: Dr. Patel on 11-28-2022 ALP [Catalytic activity/Vol] 49 U/L 45-117 [facility] [place] ALT [Catalytic activity/Vol] 22 U/L 13-56 [facility] [place] CO2 [Moles/Vol] 28.0 mmol/L 21.0-32.0 [facility] [place] Cobalamin (Vitamin B12) [Mass/Vol] 1829 pg/mL 211-911 [facility] [place] Globulin (S) [Mass/Vol] 3.3 g/dL 2.2-4.2 [facility] [place] Urea nitrogen/Creatinine [Mass ratio] 10.6 mg/mg 10-20 [facility] [place] Laboratory - Hematology and Cell countsOrdered By: Dr. Patel on 11-28-2022 Erythrocyte distribution width (RBC) [Entitic vol] 43.2 fL 35.1-43.9 [facility] [place] Erythrocyte distribution width (RBC) [Ratio] 13.4 % 11.6-14.6 [facility] [place] Immature granulocytes/100 WBC (Bld) 0.400 % 0.0-0.9 [facility] [place] Comment on above: IG% - Immature Granu locytes (promyelocytes, myelocytes and metamyelocytes) > 1% indicates that a LEFT SHIFT is Present. MCH (RBC) [Entitic mass] 28.7 pg 27.0-32.0 [facility] [place] Nucleated RBC/100 WBC (Bld) [Ratio] 0 % 0-5 [facility] [place] MCHC Auto (RBC) [Mass/Vol]Or dered By: Dr. Patel on 11-28-2022 MCHC (RBC) [Mass/Vol] 32.7 g/dL 32-36 [facility] No Panel InformationOrdered By: Dr. Patel on 11-28-2022 Estimated GFR (MDRD) Amer 98 mL/min >60 [facility] [place] Comment on above: GFR Calc Estimated GFR (MDRD) Non-Af Amer 81 mL/min >60 [facility] [place] Comment on above: Non- GFR Calc Thyroid Stimulating Hormone (TSH) 1.81 uIU/mL 0.358-3.74 [facility] [place] Vitamin D 25-Hydroxy 79.0 ng/mL [facility] Comment on above: Vitamin D 25(OH) Sta tus Range Deficiency <20 ng/mL (50nmol/L) Insufficiency 20 - 30 ng/mL (50 - 75 nmol/L) Sufficiency 30 - 100 ng/mL (75 - 250 nmol/L) Toxicity >100 ng/mL (>250 nmol/L) Platelets bldOrdered By: Dr. Patel on 11-28-2022 Platelets (Bld) [#/Vol] 310 10*3/uL 150-450 [facility] [place] Serum or plasma albumin natalia urement (mass/volume)Ordered By: Dr. Patel on 11-28-2022 Albumin [Mass/Vol] 4.1 g/dL 3.2-5.0 [facility] Serum or plasma albumin/glob ulin mass ratioOrdered By: Dr. Patel on 11-28-2022 Albumin/Globulin [Mass ratio] 1.2 {ratio} 0.9-2.4 [facility] [place] Serum or plasma calcium natalia urement (mass/volume)Ordered By: Dr. Patel on 11-28-2022 Calcium [Mass/Vol] 9.6 mg/dL 8.5-10.1 [facility] Serum or plasma cortisol ceasar surement (mass/volume)Ordered By: Dr. Patel on 11-28-2022 Cortisol [Mass/Vol] 23.20 ug/dL 3.44-22.45 [facility] Comment on above: Adult (AM) 5.27 - 22 .45 ug/dL Adult (PM) 3.44 - 16.76 ug/dLPlease note revised CORTISOL reference range effective 2019. Serum or plasma creatinine m easurement (mass/volume)Ordered By: Dr. Patel on 11-28-2022 Creatinine [Mass/Vol] 0.75 mg/dL 0.55-1.02 [facility] Comment on above: The validity of the calculated GFR & GFRAA in patients over 70 years has not been determined. Clinical correlation is essential. Serum or plasma urea nitroge n measurement (mass/volume)Ordered By: Dr. Patel on 11-28-2022 Urea nitrogen [Mass/Vol] 8 mg/dL 7-18 [facility] [place] Thin prep Papanicolaou smear with manual screeningOrdered By: Dr. Patel on 11-28-2022 Thin prep Papanicolaou smear with manual screening 22 U/L 15-37 [facility] [place] Thin prep Papanicolaou smear with manual screening 4 5-15 [facility] [place] Absolute lymphocyte countOrd ered By: Dr. Patel on 10-17-2022 Lymphocytes Auto (Unsp spec) [#/Vol] 2.22 10*3/uL 0.83-4.51 [facility] [place] Basophil percentageOrdered B y: Dr. Patel on 10-17-2022 Basophils/100 WBC (Bld) 0.5 % 0-1 [facility] [place] Chloride [Moles/Vol] 103 mmol/L 98-107 [facility] Eosinophils/100 WBC (Bld) 2.3 % 0-5 [facility] [place] Glucose [Mass/Vol] 97 mg/dL 74-106 [facility] Neutrophils (Bld) [#/Vol] 5.6 10*3/uL 2.0-7.7 [facility] [place] Neutrophils/100 WBC (Bld) 62.8 % 47-70 [facility] [place] Potassium [Moles/Vol] 4.5 mmol/L 3.5-5.1 [facility] Sodium [Moles/Vol] 137 mmol/L 136-145 [facility] WBC (Bld) [#/Vol] 8.9 10*3/uL 4.4-11.0 [facility] Blood erythrocytes count (nu mber/volume)Ordered By: Dr. Patel on 10-17-2022 RBC (Bld) [#/Vol] 4.22 10*6/uL 4.2-5.4 [facility] Blood hemoglobin measurement (mass/volume)Ordered By: Dr. Patel on 10-17-2022 Hemoglobin (Bld) [Mass/Vol] 12.2 g/dL 12.0-15.0 [facility] [place] Blood lymphocytes/100 leukoc ytesOrdered By: Dr. Patel on 10-17-2022 Lymphocytes/100 WBC (Bld) 25.1 % 19-41 [facility] [place] Blood monocytes/100 leukocyt esOrdered By: Dr. Patel on 10-17-2022 Monocytes/100 WBC (Bld) 8.7 % 0-10 [facility] [place] Blood platelet mean volumeOr dered By: Dr. Patel on 10-17-2022 Platelet mean volume (Bld) [Entitic vol] 11.3 fL 6.2-12.0 [facility] [place] Determination of erythrocyte mean corpuscular volume (MCV)Ordered By: Dr. Patel on 10-17-2022 MCV (RBC) [Entitic vol] 90.5 fL 81-99 [facility] [place] Hematocrit Auto (Bld) [Volum e fraction]Ordered By: Dr. Patel on 10-17-2022 Hematocrit (Bld) [Volume fraction] 38.2 % 37-47 [facility] [place] Laboratory - Chemistry and C hemistry - challengeOrdered By: Dr. Patel on 10-17-2022 CO2 [Moles/Vol] 26.0 mmol/L 21.0-32.0 [facility] [place] Urea nitrogen/Creatinine [Mass ratio] 15.7 mg/mg 10-20 [facility] [place] Laboratory - Hematology and Cell countsOrdered By: Dr. Patel on 10-17-2022 Erythrocyte distribution width (RBC) [Entitic vol] 43.9 fL 35.1-43.9 [facility] [place] Erythrocyte distribution width (RBC) [Ratio] 13.3 % 11.6-14.6 [facility] [place] Immature granulocytes/100 WBC (Bld) 0.600 % 0.0-0.9 [facility] [place] Comment on above: IG% - Immature Granu locytes (promyelocytes, myelocytes and metamyelocytes) > 1% indicates that a LEFT SHIFT is Present. MCH (RBC) [Entitic mass] 28.9 pg 27.0-32.0 [facility] [place] Nucleated RBC/100 WBC (Bld) [Ratio] 0 % 0-5 [facility] [place] MCHC Auto (RBC) [Mass/Vol]Or dered By: Dr. Patel on 10-17-2022 MCHC (RBC) [Mass/Vol] 31.9 g/dL 32-36 [facility] No Panel InformationOrdered By: Dr. Patel on 10-17-2022 Estimated GFR (MDRD) Amer 106 mL/min >60 [facility] [place] Comment on above: GFR Calc Estimated GFR (MDRD) Non-Af Amer 88 mL/min >60 [facility] [place] Comment on above: Non- GFR Calc Thyroid Stimulating Hormone (TSH) 1.66 uIU/mL 0.358-3.74 [facility] [place] Platelets bldOrdered By: Dr. Patel on 10-17-2022 Platelets (Bld) [#/Vol] 285 10*3/uL 150-450 [facility] [place] Serum or plasma calcium natalia urement (mass/volume)Ordered By: Dr. Patel on 10-17-2022 Calcium [Mass/Vol] 9.5 mg/dL 8.5-10.1 [facility] Serum or plasma creatinine m easurement (mass/volume)Ordered By: Dr. Patel on 10-17-2022 Creatinine [Mass/Vol] 0.70 mg/dL 0.55-1.02 [facility] Comment on above: The validity of the calculated GFR & GFRAA in patients over 70 years has not been determined. Clinical correlation is essential. Serum or plasma urea nitroge n measurement (mass/volume)Ordered By: Dr. Patel on 10-17-2022 Urea nitrogen [Mass/Vol] 11 mg/dL 7-18 [facility] [place] Thin prep Papanicolaou smear with manual screeningOrdered By: Dr. Patel on 10-17-2022 Thin prep Papanicolaou smear with manual screening 8 5-15 [facility] [place] Thin prep Papanicolaou smear with manual screening 291 mOsm/KG 280-301 [facility] [place] Ova and parasitesOrdered By: Dr. Patel on 10-09-2022 Ova and parasites identified LM Nom (Unsp spec) [facility] [place] No Panel InformationOrdered By: Marlene Webb on 10-07-2022 Troponin I High Sensitivity 19 pg/mL 3.0-54.0 [facility] [place] Comment on above: Please Note: New Angela t Units and Gender Specific Reference Ranges. For more information see Policy Stat Procedure [place] High Sensitivity Troponin (TNIH) and attachments. Absolute lymphocyte countOrd ered By: Jessie Juárez on 10-01-2022 Lymphocytes Auto (Unsp spec) [#/Vol] 1.89 10*3/uL 0.83-4.51 [facility] [place] Basophil percentageOrdered B y: Jessie Monooulmir on 10-01-2022 Basophils/100 WBC (Bld) 0.3 % 0-1 [facility] [place] Bilirubin [Mass/Vol] 0.70 mg/dL 0.20-1.00 [facility] Comment on above: For patients on eltr ombopag therapy, use of Dimension [place] TBIL is not recommended. Chloride [Moles/Vol] 94 mmol/L 98-107 [facility] Eosinophils/100 WBC (Bld) 0.1 % 0-5 [facility] [place] Glucose [Mass/Vol] 97 mg/dL 74-106 [facility] Neutrophils (Bld) [#/Vol] 10.9 10*3/uL 2.0-7.7 [facility] [place] Neutrophils/100 WBC (Bld) 79.1 % 47-70 [facility] [place] Potassium [Moles/Vol] 4.4 mmol/L 3.5-5.1 [facility] Protein [Mass/Vol] 7.4 g/dL 6.4-8.2 [facility] Sodium [Moles/Vol] 130 mmol/L 136-145 [facility] WBC (Bld) [#/Vol] 13.7 10*3/uL 4.4-11.0 [facility] Blood erythrocytes count (nu mber/volume)Ordered By: Jessie Moonoulmir on 10-01-2022 RBC (Bld) [#/Vol] 4.57 10*6/uL 4.2-5.4 [facility] Blood hemoglobin measurement (mass/volume)Ordered By: Jessie Statrenyoulmir on 10-01-2022 Hemoglobin (Bld) [Mass/Vol] 13.5 g/dL 12.0-15.0 [facility] [place] Blood lymphocytes/100 leukoc ytesOrdered By: Jessie Statrenyoulos on 10-01-2022 Lymphocytes/100 WBC (Bld) 13.8 % 19-41 [facility] [place] Blood monocytes/100 leukocyt esOrdered By: Jessie Stathopoulos on 10-01-2022 Monocytes/100 WBC (Bld) 6.1 % 0-10 [facility] [place] Blood platelet mean volumeOr dered By: Jessie Franck on 10-01-2022 Platelet mean volume (Bld) [Entitic vol] 11.5 fL 6.2-12.0 [facility] [place] Clostridium difficile detect ion by polymerase chain reactionOrdered By: Dr. Patel on 10-01-2022 C. difficile DNA BRANDYN+probe Ql (Unsp spec) [facility] [place] Determination of erythrocyte mean corpuscular volume (MCV)Ordered By: Jessie Juárez on 10-01-2022 MCV (RBC) [Entitic vol] 88.0 fL 81-99 [facility] [place] Hematocrit Auto (Bld) [Volum e fraction]Ordered By: [facility] on 10-01-2022 Hematocrit (Bld) [Volume fraction] 40.2 % 37-47 [facility] [place] Laboratory - Chemistry and C hemistry - challengeOrdered By: Jessiemelania Juárez on 10-01-2022 ALP [Catalytic activity/Vol] 46 U/L 45-117 [facility] [place] ALT [Catalytic activity/Vol] 18 U/L 13-56 [facility] [place] CO2 [Moles/Vol] 27.0 mmol/L 21.0-32.0 [facility] [place] Globulin (S) [Mass/Vol] 3.0 g/dL 2.2-4.2 [facility] [place] Urea nitrogen/Creatinine [Mass ratio] 12.9 mg/mg 10-20 [facility] [place] Laboratory - Hematology and Cell countsOrdered By: [facility] Franck on 10-01-2022 Erythrocyte distribution width (RBC) [Entitic vol] 40.9 fL 35.1-43.9 [facility] [place] Erythrocyte distribution width (RBC) [Ratio] 12.6 % 11.6-14.6 [facility] [place] Immature granulocytes/100 WBC (Bld) 0.600 % 0.0-0.9 [facility] [place] Comment on above: IG% - Immature Granu locytes (promyelocytes, myelocytes and metamyelocytes) > 1% indicates that a LEFT SHIFT is Present. MCH (RBC) [Entitic mass] 29.5 pg 27.0-32.0 [facility] [place] Nucleated RBC/100 WBC (Bld) [Ratio] 0 % 0-5 [facility] [place] MCHC Auto (RBC) [Mass/Vol]Or dered By: Jessie Juárez on 10-01-2022 MCHC (RBC) [Mass/Vol] 33.6 g/dL 32-36 [facility] No Panel InformationOrdered By: Dr. Patel on 10-01-2022 Miscellaneous Test See comment [facility] Comment on above: TEST RESULT LIMITSSt ool CultureSalmonella/Shigella Screen Final reportResult 1 No Salmonella or Shigella recovered.Campylobacter Culture Final reportResult 1 No Campylobacter species isolated.E coli Shiga Toxin EIA Negative Negative Stool Pancreatic Elastase 342 >200 [facility] [place] Comment on above: Result Units: ug Ingrid st./g Severe Pancreatic Insufficiency: <100 Moderate Pancreatic Insufficiency: 100 - 200 Normal: >200Performed at: [facility] [id number] Director: Tiff Tanner MD, Phone: [phone] No Panel InformationOrdered By: Jessie Juárez on 10-01-2022 Estimated GFR (MDRD) Amer 106 mL/min >60 [facility] [place] Comment on above: GFR Calc Estimated GFR (MDRD) Non-Af Amer 88 mL/min >60 [facility] [place] Comment on above: Non- GFR Calc Thyroid Stimulating Hormone (TSH) 1.66 uIU/mL 0.358-3.74 [facility] [place] Platelets bldOrdered By: Nakul Juárez on 10-01-2022 Platelets (Bld) [#/Vol] 319 10*3/uL 150-450 [facility] [place] Serum or plasma albumin natalia urement (mass/volume)Ordered By: Jessie Statotilio on 10-01-2022 Albumin [Mass/Vol] 4.4 g/dL 3.2-5.0 [facility] Serum or plasma albumin/glob ulin mass ratioOrdered By: Jessie Statotilio on 10-01-2022 Albumin/Globulin [Mass ratio] 1.5 {ratio} 0.9-2.4 [facility] [place] Serum or plasma calcium natalia urement (mass/volume)Ordered By: Jessie Statrenyoulmir on 10-01-2022 Calcium [Mass/Vol] 9.8 mg/dL 8.5-10.1 [facility] Serum or plasma creatinine m easurement (mass/volume)Ordered By: Jessie Juárez on 10-01-2022 Creatinine [Mass/Vol] 0.70 mg/dL 0.55-1.02 [facility] Comment on above: The validity of the calculated GFR & GFRAA in patients over 70 years has not been determined. Clinical correlation is essential. Serum or plasma urea nitroge n measurement (mass/volume)Ordered By: Jessie Juárez on 10-01-2022 Urea nitrogen [Mass/Vol] 9 mg/dL 7-18 [facility] [place] Stool lactoferrin detection by immunoassayOrdered By: Dr. Patel on 10-01-2022 Lactoferrin IA Ql (Stl) [facility] [place] Thin prep Papanicolaou smear with manual screeningOrdered By: Jessie Juárez on 10-01-2022 Thin prep Papanicolaou smear with manual screening 20 U/L 15-37 [facility] [place] Thin prep Papanicolaou smear with manual screening 9 5-15 [facility] [place] Absolute lymphocyte countOrd ered By: Dr. Patel on 08-06-2022 Lymphocytes Auto (Unsp spec) [#/Vol] 1.99 10*3/uL 0.83-4.51 [facility] [place] Basophil percentageOrdered B y: Dr. Patel on 08-06-2022 Basophils/100 WBC (Bld) 0.8 % 0-1 [facility] [place] Eosinophils/100 WBC (Bld) 1.6 % 0-5 [facility] [place] Neutrophils (Bld) [#/Vol] 6.5 10*3/uL 2.0-7.7 [facility] [place] Neutrophils/100 WBC (Bld) 65.6 % 47-70 [facility] [place] WBC (Bld) [#/Vol] 9.8 10*3/uL 4.4-11.0 [facility] Blood erythrocytes count (nu mber/volume)Ordered By: Dr. Patel on 08-06-2022 RBC (Bld) [#/Vol] 4.19 10*6/uL 4.2-5.4 [facility] Blood hemoglobin measurement (mass/volume)Ordered By: Dr. Patel on 08-06-2022 Hemoglobin (Bld) [Mass/Vol] 12.7 g/dL 12.0-15.0 [facility] [place] Blood lymphocytes/100 leukoc ytesOrdered By: Dr. Patel on 08-06-2022 Lymphocytes/100 WBC (Bld) 20.2 % 19-41 [facility] [place] Blood monocytes/100 leukocyt esOrdered By: Dr. Patel on 08-06-2022 Monocytes/100 WBC (Bld) 11.1 % 0-10 [facility] [place] Blood platelet mean volumeOr dered By: Dr. Patel on 08-06-2022 Platelet mean volume (Bld) [Entitic vol] 11.4 fL 6.2-12.0 [facility] [place] Determination of erythrocyte mean corpuscular volume (MCV)Ordered By: Dr. Patel on 08-06-2022 MCV (RBC) [Entitic vol] 91.9 fL 81-99 [facility] [place] Hematocrit Auto (Bld) [Volum e fraction]Ordered By: Dr. Patel on 08-06-2022 Hematocrit (Bld) [Volume fraction] 38.5 % 37-47 [facility] [place] Laboratory - Hematology and Cell countsOrdered By: Dr. Patel on 08-06-2022 Erythrocyte distribution width (RBC) [Entitic vol] 45.4 fL 35.1-43.9 [facility] [place] Erythrocyte distribution width (RBC) [Ratio] 13.4 % 11.6-14.6 [facility] [place] Immature granulocytes/100 WBC (Bld) 0.700 % 0.0-0.9 [facility] [place] Comment on above: IG% - Immature Granu locytes (promyelocytes, myelocytes and metamyelocytes) > 1% indicates that a LEFT SHIFT is Present. MCH (RBC) [Entitic mass] 30.3 pg 27.0-32.0 [facility] [place] Nucleated RBC/100 WBC (Bld) [Ratio] 0 % 0-5 [facility] [place] MCHC Auto (RBC) [Mass/Vol]Or dered By: Dr. Patel on 08-06-2022 MCHC (RBC) [Mass/Vol] 33.0 g/dL 32-36 [facility] Platelets bldOrdered By: Dr. Paetl on 08-06-2022 Platelets (Bld) [#/Vol] 288 10*3/uL 150-450 [facility] [place] Absolute lymphocyte countOrd ered By: Dr. Patel on 08-01-2022 Lymphocytes Auto (Unsp spec) [#/Vol] 1.62 10*3/uL 0.83-4.51 [facility] [place] Basophil percentageOrdered B y: Dr. Patel on 08-01-2022 Basophils/100 WBC (Bld) 0.6 % 0-1 [facility] [place] Bilirubin [Mass/Vol] 0.50 mg/dL 0.20-1.00 [facility] Comment on above: For patients on eltr ombopag therapy, use of Dimension [place] TBIL is not recommended. Chloride [Moles/Vol] 101 mmol/L 98-107 [facility] Eosinophils/100 WBC (Bld) 0.6 % 0-5 [facility] [place] Glucose [Mass/Vol] 107 mg/dL 74-106 [facility] Comment on above: Fasting Glucose resu lt from 100 to 125 mg/dL suggests IMPAIRED HOMEOSTASIS per A.D.A. criteria. Neutrophils (Bld) [#/Vol] 9.0 10*3/uL 2.0-7.7 [facility] [place] Neutrophils/100 WBC (Bld) 76.6 % 47-70 [facility] [place] Potassium [Moles/Vol] 4.5 mmol/L 3.5-5.1 [facility] Protein [Mass/Vol] 7.1 g/dL 6.4-8.2 [facility] Sodium [Moles/Vol] 136 mmol/L 136-145 [facility] WBC (Bld) [#/Vol] 11.8 10*3/uL 4.4-11.0 [facility] Blood erythrocytes count (nu mber/volume)Ordered By: Dr. Patel on 08-01-2022 RBC (Bld) [#/Vol] 4.36 10*6/uL 4.2-5.4 [facility] Blood hemoglobin measurement (mass/volume)Ordered By: Dr. Patel on 08-01-2022 Hemoglobin (Bld) [Mass/Vol] 13.3 g/dL 12.0-15.0 [facility] [place] Blood lymphocytes/100 leukoc ytesOrdered By: Dr. Patel on 08-01-2022 Lymphocytes/100 WBC (Bld) 13.8 % 19-41 [facility] [place] Blood monocytes/100 leukocyt esOrdered By: Dr. Patel on 08-01-2022 Monocytes/100 WBC (Bld) 7.1 % 0-10 [facility] [place] Blood platelet mean volumeOr dered By: Dr. Patel on 08-01-2022 Platelet mean volume (Bld) [Entitic vol] 11.1 fL 6.2-12.0 [facility] [place] Determination of erythrocyte mean corpuscular volume (MCV)Ordered By: Dr. Patel on 08-01-2022 MCV (RBC) [Entitic vol] 92.2 fL 81-99 [facility] [place] Erythrocyte sedimentation ra teOrdered By: Dr. Patel on 08-01-2022 ESR (Bld) [Velocity] 10 mm/h 0-30 [facility] Hematocrit Auto (Bld) [Volum e fraction]Ordered By: Dr. Patel on 08-01-2022 Hematocrit (Bld) [Volume fraction] 40.2 % 37-47 [facility] [place] Iron measurement (mass/mass) Ordered By: Dr. Patel on 08-01-2022 Iron (Unsp spec) [Mass/Mass] 106 ug/dL 50-170 [facility] [place] Laboratory - Chemistry and C hemistry - challengeOrdered By: Dr. Patel on 08-01-2022 ALP [Catalytic activity/Vol] 43 U/L 45-117 [facility] [place] ALT [Catalytic activity/Vol] 18 U/L 13-56 [facility] [place] CO2 [Moles/Vol] 29.0 mmol/L 21.0-32.0 [facility] [place] Cobalamin (Vitamin B12) [Mass/Vol] 947 pg/mL 211-911 [facility] [place] Globulin (S) [Mass/Vol] 3.1 g/dL 2.2-4.2 [facility] [place] Urea nitrogen/Creatinine [Mass ratio] 8.6 mg/mg 10-20 [facility] [place] Laboratory - Hematology and Cell countsOrdered By: Dr. Patel on 08-01-2022 Erythrocyte distribution width (RBC) [Entitic vol] 45.8 fL 35.1-43.9 [facility] [place] Erythrocyte distribution width (RBC) [Ratio] 13.5 % 11.6-14.6 [facility] [place] Immature granulocytes/100 WBC (Bld) 1.300 % 0.0-0.9 [facility] [place] Comment on above: IG% - Immature Granu locytes (promyelocytes, myelocytes and metamyelocytes) > 1% indicates that a LEFT SHIFT is Present. MCH (RBC) [Entitic mass] 30.5 pg 27.0-32.0 [facility] [place] Nucleated RBC/100 WBC (Bld) [Ratio] 0 % 0-5 [facility] [place] MCHC Auto (RBC) [Mass/Vol]Or dered By: Dr. Patel on 08-01-2022 MCHC (RBC) [Mass/Vol] 33.1 g/dL 32-36 [facility] No Panel InformationOrdered By: Dr. Patel on 08-01-2022 Estimated GFR (MDRD) Amer 90 mL/min >60 [facility] [place] Comment on above: GFR Calc Estimated GFR (MDRD) Non-Af Amer 74 mL/min >60 [facility] [place] Comment on above: Non- GFR Calc Thyroid Stimulating Hormone (TSH) 1.39 uIU/mL 0.358-3.74 [facility] [place] Vitamin D 25-Hydroxy 60.5 ng/mL [facility] Comment on above: Vitamin D 25(OH) Sta tus Range Deficiency <20 ng/mL (50nmol/L) Insufficiency 20 - 30 ng/mL (50 - 75 nmol/L) Sufficiency 30 - 100 ng/mL (75 - 250 nmol/L) Toxicity >100 ng/mL (>250 nmol/L) Platelets bldOrdered By: Dr. Patel on 08-01-2022 Platelets (Bld) [#/Vol] 341 10*3/uL 150-450 [facility] [place] Serum or plasma C reactive p rotein measurement (mass/volume)Ordered By: Dr. Patel on 08-01-2022 CRP [Mass/Vol] mg/L 0.0-3.0 [facility] [place] Comment on above: C-Reactive Protein ( CRP) provides useful information for thediagnosis, therapy and monitoring of inflammatory processesand associated diseases. For the evaluation of Relative Riskfor Cardiovascular Disease, a High Sensitivity CRP (HSCRP)should be ordered. Serum or plasma albumin natalia urement (mass/volume)Ordered By: Dr. Patel on 08-01-2022 Albumin [Mass/Vol] 4.0 g/dL 3.2-5.0 [facility] Serum or plasma albumin/glob ulin mass ratioOrdered By: Dr. Patel on 08-01-2022 Albumin/Globulin [Mass ratio] 1.3 {ratio} 0.9-2.4 [facility] [place] Serum or plasma calcium natalia urement (mass/volume)Ordered By: Dr. Patel on 08-01-2022 Calcium [Mass/Vol] 9.9 mg/dL 8.5-10.1 [facility] Serum or plasma creatinine m easurement (mass/volume)Ordered By: Dr. Patel on 08-01-2022 Creatinine [Mass/Vol] 0.81 mg/dL 0.55-1.02 [facility] Comment on above: The validity of the calculated GFR & GFRAA in patients over 70 years has not been determined. Clinical correlation is essential. Serum or plasma ferritin ceasar surement (mass/volume)Ordered By: Dr. Patel on 08-01-2022 Ferritin [Mass/Vol] 217 ng/mL 8-252 [facility] Serum or plasma urea nitroge n measurement (mass/volume)Ordered By: Dr. Patel on 08-01-2022 Urea nitrogen [Mass/Vol] 7 mg/dL 7-18 [facility] [place] Thin prep Papanicolaou smear with manual screeningOrdered By: Dr. Patel on 08-01-2022 Thin prep Papanicolaou smear with manual screening 14 U/L 15-37 [facility] [place] Thin prep Papanicolaou smear with manual screening 6 5-15 [facility] [place] Basophil percentageon 2021 Chloride [Moles/Vol] 104 mmol/L 98-107 [facility] Work Phone: Glucose [Mass/Vol] 74 mg/dL 74-106 [facility] Work Phone: Potassium [Moles/Vol] 4.3 mmol/L 3.5-5.1 [facility] Work Phone: Sodium [Moles/Vol] 139 mmol/L 136-145 [facility] Work Phone: Laboratory - Chemistry and C hemistry - challengeon 06-05-2022 CO2 [Moles/Vol] 29.0 mmol/L 21.0-32.0 [facility] [place] Work Phone: Urea nitrogen/Creatinine [Mass ratio] 11.2 mg/mg 10-20 [facility] [place] Work Phone: No Panel Informationon 06-05 Estimated GFR (MDRD) Amer 121 mL/min >60 [facility] [place] Work Phone: Comment on above: GFR Calc Estimated GFR (MDRD) Non-Af Amer 100 mL/min >60 [facility] [place] Work Phone: Comment on above: Non- GFR Calc Serum or plasma calcium natalia urement (mass/volume)on 06-05-2022 Calcium [Mass/Vol] 9.4 mg/dL 8.5-10.1 [facility] Work Phone: Serum or plasma creatinine m easurement (mass/volume)on 06-05-2022 Creatinine [Mass/Vol] 0.63 mg/dL 0.55-1.02 [facility] Work Phone: Comment on above: The validity of the calculated GFR & GFRAA in patients over 70 years has not been determined. Clinical correlation is essential. Serum or plasma urea nitroge n measurement (mass/volume)on 06-05-2022 Urea nitrogen [Mass/Vol] 7 mg/dL 7-18 [facility] [place] Work Phone: Thin prep Papanicolaou smear with manual screeningon 06-05-2022 Thin prep Papanicolaou smear with manual screening 6 5-15 [facility] [place] Work Phone: Basophil percentageon 2021 Chloride [Moles/Vol] 109 mmol/L 98-107 [facility] Work Phone: Glucose [Mass/Vol] 82 mg/dL 74-106 [facility] Work Phone: Potassium [Moles/Vol] 5.4 mmol/L 3.5-5.1 [facility] Work Phone: Sodium [Moles/Vol] 140 mmol/L 136-145 [facility] Work Phone: Laboratory - Chemistry and C hemistry - challengeon 05-13-2022 CO2 [Moles/Vol] 14.0 mmol/L 21.0-32.0 [facility] [place] Work Phone: Magnesium [Mass/Vol] 2.2 mg/dL 1.6-2.6 [facility] Work Phone: Urea nitrogen/Creatinine [Mass ratio] 8.6 mg/mg 10- [facility] [place] Work Phone: No Panel Informationon 05-13 Estimated GFR (MDRD) Amer 76 mL/min >60 [facility] [place] Work Phone: Comment on above: GFR Calc Estimated GFR (MDRD) Non-Af Amer 63 mL/min >60 [facility] [place] Work Phone: Comment on above: Non- GFR Calc Troponin I High Sensitivity 12 pg/mL 3.0-54.0 [facility] [place] Work Phone: Comment on above: Please Note: New Angela t Units and Gender Specific Reference Ranges. For more information see Policy Stat Procedure [place] High Sensitivity Troponin (TNIH) and attachments. Serum or plasma calcium natalia urement (mass/volume)on 05-13-2022 Calcium [Mass/Vol] 9.8 mg/dL 8.5-10.1 [facility] Work Phone: Serum or plasma creatinine m easurement (mass/volume)on 05-13-2022 Creatinine [Mass/Vol] 0.93 mg/dL 0.55-1.02 [facility] Work Phone: Comment on above: The validity of the calculated GFR & GFRAA in patients over 70 years has not been determined. Clinical correlation is essential. Serum or plasma urea nitroge n measurement (mass/volume)on 05-13-2022 Urea nitrogen [Mass/Vol] 8 mg/dL 7-18 [facility] [place] Work Phone: Thin prep Papanicolaou smear with manual screeningon 05-13-2022 Thin prep Papanicolaou smear with manual screening 17 5-15 [facility] [place] Work Phone: Absolute lymphocyte counton 05-09-2022 Lymphocytes Auto (Unsp spec) [#/Vol] 2.49 10*3/uL 0.83-4.51 [facility] [place] Work Phone: Basophil percentageon 2021 Basophils/100 WBC (Bld) 0.3 % 0-1 [facility] [place] Work Phone: Chloride [Moles/Vol] 98 mmol/L 98-107 [facility] Work Phone: Eosinophils/100 WBC (Bld) 0.7 % 0-5 [facility] [place] Work Phone: Glucose [Mass/Vol] 123 mg/dL 74-106 [facility] Work Phone: Comment on above: Fasting Glucose resu lt from 100 to 125 mg/dL suggests IMPAIRED HOMEOSTASIS per A.D.A. criteria. Neutrophils (Bld) [#/Vol] 8.1 10*3/uL 2.0-7.7 [facility] [place] Work Phone: Neutrophils/100 WBC (Bld) 68.9 % 47-70 [facility] [place] Work Phone: Potassium [Moles/Vol] 4.0 mmol/L 3.5-5.1 [facility] Work Phone: Sodium [Moles/Vol] 133 mmol/L 136-145 [facility] Work Phone: WBC (Bld) [#/Vol] 11.8 10*3/uL 4.4-11.0 [facility] Work Phone: [phone] Blood erythrocytes count (nu mber/volume)on 05-09-2022 RBC (Bld) [#/Vol] 4.28 10*6/uL 4.2-5.4 [facility] Work Phone: [phone] Blood hemoglobin measurement (mass/volume)on 05-09-2022 Hemoglobin (Bld) [Mass/Vol] 12.0 g/dL 12.0-15.0 [facility] [place] Work Phone: Blood lymphocytes/100 leukoc yteson 05-09-2022 Lymphocytes/100 WBC (Bld) 21.1 % 19-41 [facility] [place] Work Phone: [phone] Blood monocytes/100 leukocyt eson 05-09-2022 Monocytes/100 WBC (Bld) 8.6 % 0-10 [facility] [place] Work Phone: Blood platelet mean volumeon 05-09-2022 Platelet mean volume (Bld) [Entitic vol] 11.3 fL 6.2-12.0 [facility] [place] Work Phone: Determination of erythrocyte mean corpuscular volume (MCV)on 05-09-2022 MCV (RBC) [Entitic vol] 86.4 fL 81-99 [facility] [place] Work Phone: Hematocrit Auto (Bld) [Volum e fraction]on 05-09-2022 Hematocrit (Bld) [Volume fraction] 37.0 % 37-47 [facility] [place] Work Phone: Laboratory - Chemistry and C hemistry - challengeon 05-09-2022 CO2 [Moles/Vol] 28.0 mmol/L 21.0-32.0 [facility] [place] Work Phone: Urea nitrogen/Creatinine [Mass ratio] 11.7 mg/mg 10-20 [facility] [place] Work Phone: Laboratory - Hematology and Cell countson 05-09-2022 Erythrocyte distribution width (RBC) [Entitic vol] 49.7 fL 35.1-43.9 [facility] [place] Work Phone: Erythrocyte distribution width (RBC) [Ratio] 15.7 % 11.6-14.6 [facility] [place] Work Phone: Immature granulocytes/100 WBC (Bld) 0.400 % 0.0-0.9 [facility] [place] Work Phone: Comment on above: IG% - Immature Granu locytes (promyelocytes, myelocytes and metamyelocytes) > 1% indicates that a LEFT SHIFT is Present. MCH (RBC) [Entitic mass] 28.0 pg 27.0-32.0 [facility] [facility] [place] Work Phone: Nucleated RBC/100 WBC (Bld) [Ratio] 0 % 0-5 [facility] [place] Work Phone: MCHC Auto (RBC) [Mass/Vol]on 05-09-2022 MCHC (RBC) [Mass/Vol] 32.4 g/dL 32-36 [facility] Work Phone: No Panel Informationon 05-09 Estimated Creatinine Clearance Calc 45.20 ml/min [facility] [place] Work Phone: Estimated GFR (MDRD) Amer 95 mL/min >60 [facility] [place] Work Phone: Comment on above: GFR Calc Estimated GFR (MDRD) Non-Af Amer 79 mL/min >60 [facility] [place] Work Phone: Comment on above: Non- GFR Calc Troponin I High Sensitivity 7 pg/mL 3.0-54.0 [facility] [place] Work Phone: Comment on above: Please Note: New Angela t Units and Gender Specific Reference Ranges. For more information see Policy Stat Procedure [place] High Sensitivity Troponin (TNIH) and attachments. Platelets bldon 05-09-2022 Platelets (Bld) [#/Vol] 298 10*3/uL 150-450 [facility] [place] Work Phone: Serum or plasma calcium natalia urement (mass/volume)on 05-09-2022 Calcium [Mass/Vol] 9.2 mg/dL 8.5-10.1 [facility] Work Phone: Serum or plasma creatinine m easurement (mass/volume)on 05-09-2022 Creatinine [Mass/Vol] 0.77 mg/dL 0.55-1.02 [facility] Work Phone: Comment on above: The validity of the calculated GFR & GFRAA in patients over 70 years has not been determined. Clinical correlation is essential. Serum or plasma urea nitroge n measurement (mass/volume)on 05-09-2022 Urea nitrogen [Mass/Vol] 9 mg/dL 7-18 [facility] [place] Work Phone: Thin prep Papanicolaou smear with manual screeningon 05-09-2022 Thin prep Papanicolaou smear with manual screening 7 5-15 [facility] [place] Work Phone: Absolute lymphocyte counton 05-08-2022 Lymphocytes Auto (Unsp spec) [#/Vol] 1.51 10*3/uL 0.83-4.51 [facility] [place] Work Phone: Basophil percentageon 2021 Basophil percentage 0-5 SEEN /hpf 0-5 [facility] Work Phone: Ammonia (P) [Moles/Vol] 17.0 umol/L 11-32 [facility] [place] Work Phone: Basophils/100 WBC (Bld) 0.5 % 0-1 [facility] [place] Work Phone: Bilirubin [Mass/Vol] 0.40 mg/dL 0.20-1.00 [facility] Work Phone: Comment on above: For patients on eltr ombopag therapy, use of Dimension [place] TBIL is not recommended. Chloride [Moles/Vol] 98 mmol/L 98-107 [facility] Work Phone: Eosinophils/100 WBC (Bld) 0.2 % 0-5 [facility] [place] Work Phone: [phone] Glucose [Mass/Vol] 117 mg/dL 74-106 [facility] Work Phone: Comment on above: Fasting Glucose resu lt from 100 to 125 mg/dL suggests IMPAIRED HOMEOSTASIS per A.D.A. criteria. Neutrophils (Bld) [#/Vol] 6.5 10*3/uL 2.0-7.7 [facility] [place] Work Phone: Neutrophils/100 WBC (Bld) 76.4 % 47-70 [facility] [place] Work Phone: Potassium [Moles/Vol] 4.2 mmol/L 3.5-5.1 [facility] Work Phone: Protein [Mass/Vol] 7.9 g/dL 6.4-8.2 [facility]: Sodium [Moles/Vol] 133 mmol/L 136-145 [facility] Work Phone: WBC (Bld) [#/Vol] 8.5 10*3/uL 4.4-11.0 [facility] Work Phone: Bilirubin Test strip Ql (U)o n 05-08-2022 Bilirubin Ql (U) Negative Negative [facility] [place] Work Phone: Blood erythrocytes count (nu mber/volume)on 05-08-2022 RBC (Bld) [#/Vol] 4.45 10*6/uL 4.2-5.4 [facility] Work [facility]: Blood hemoglobin measurement (mass/volume)on 05-08-2022 Hemoglobin (Bld) [Mass/Vol] 12.9 g/dL 12.0-15.0 [facility] [place] Work Phone: Blood lymphocytes/100 leukoc yteson 05-08-2022 Lymphocytes/100 WBC (Bld) 17.7 % 19-41 [facility] [place] Work Phone: Blood monocytes/100 leukocyt eson 05-08-2022 Monocytes/100 WBC (Bld) 4.8 % 0-10 [facility] [place] Work Phone: Blood platelet mean volumeon 05-08-2022 Platelet mean volume (Bld) [Entitic vol] 11.3 fL 6.2-12.0 [facility] [place] Work Phone: Determination of erythrocyte mean corpuscular volume (MCV)on 05-08-2022 MCV (RBC) [Entitic vol] 88.3 fL 81-99 [facility] [place] Work Phone: Hematocrit Auto (Bld) [Volum e fraction]on 05-08-2022 Hematocrit (Bld) [Volume fraction] 39.3 % 37-47 [facility] [place] Work Phone: Ketones Test strip Ql (U)on 05-08-2022 Ketones Ql (U) 5 mg/dl Negative [facility] [place] Work Phone: Laboratory - Chemistry and C hemistry - challengeon 05-08-2022 ALP [Catalytic activity/Vol] 50 U/L 45-117 [facility] [place] Work Phone: ALT [Catalytic activity/Vol] 25 U/L 13-56 [facility] [place] Work Phone: CO2 [Moles/Vol] 28.0 mmol/L 21.0-32.0 [facility] [place] Work Phone: Globulin (S) [Mass/Vol] 3.7 g/dL 2.2-4.2 [facility] [place] Work Phone: Urea nitrogen/Creatinine [Mass ratio] 12.1 mg/mg 10-20 [facility] [place] Work Phone: Laboratory - Hematology and Cell countson 05-08-2022 Erythrocyte distribution width (RBC) [Entitic vol] 51.7 fL 35.1-43.9 [facility] [place] Work Phone: Erythrocyte distribution width (RBC) [Ratio] 15.9 % 11.6-14.6 [facility] [place] Work Phone: Immature granulocytes/100 WBC (Bld) 0.400 % 0.0-0.9 [facility] [place] Work Phone: Comment on above: IG% - Immature Granu locytes (promyelocytes, myelocytes and metamyelocytes) > 1% indicates that a LEFT SHIFT is Present. MCH (RBC) [Entitic mass] 29.0 pg 27.0-32.0 [facility] [place] Work Phone: Nucleated RBC/100 WBC (Bld) [Ratio] 0 % 0-5 [facility] [place] Work Phone: MCHC Auto (RBC) [Mass/Vol]on 05-08-2022 MCHC (RBC) [Mass/Vol] 32.8 g/dL 32-36 [facility] Work Phone: Mucus LM Ql (Urine sed)on Mucus Ql (Urine sed) 0 SEEN /hpf [facility] Work Phone: Nitrite Test strip Ql (U)on 05-08-2022 Nitrite Ql (U) Negative Negative [facility] [place] Work Phone: No Panel Informationon 05-08 Estimated Creatinine Clearance Calc 45.20 ml/min [facility] [place] Work Phone: Estimated GFR (MDRD) Amer 99 mL/min >60 [facility] [place] Work Phone: Comment on above: GFR Calc Estimated GFR (MDRD) Non-Af Amer 82 mL/min >60 [facility] [place] Work Phone: Comment on above: Non- GFR Calc Thyroid Stimulating Hormone (TSH) 2.36 uIU/mL 0.358-3.74 [facility] [place] Work Phone: Troponin I High Sensitivity 7 pg/mL 3.0-54.0 [facility] [place] Work Phone: Comment on above: Please Note: New Angela t Units and Gender Specific Reference Ranges. For more information see Policy Stat Procedure [place] High Sensitivity Troponin (TNIH) and attachments. Platelets bldon 05-08-2022 Platelets (Bld) [#/Vol] 279 10*3/uL 150-450 [facility] [place] Work Phone: Protein Test strip Ql (U)on 05-08-2022 Protein Ql (U) 15 mg/dl Negative [facility] [place] Work Phone: Serum or plasma albumin natalia urement (mass/volume)on 05-08-2022 Albumin [Mass/Vol] 4.2 g/dL 3.2-5.0 [facility] Work Phone: Serum or plasma albumin/glob ulin mass ratioon 05-08-2022 Albumin/Globulin [Mass ratio] 1.1 {ratio} 0.9-2.4 [facility] [place] Work Phone: Serum or plasma calcium natalia urement (mass/volume)on 05-08-2022 Calcium [Mass/Vol] 9.5 mg/dL 8.5-10.1 [facility] Work Phone: Serum or plasma creatinine m easurement (mass/volume)on 05-08-2022 Creatinine [Mass/Vol] 0.75 mg/dL 0.55-1.02 [facility] Work Phone: Comment on above: The validity of the calculated GFR & GFRAA in patients over 70 years has not been determined. Clinical correlation is essential. Serum or plasma urea nitroge n measurement (mass/volume)on 05-08-2022 Urea nitrogen [Mass/Vol] 9 mg/dL 7-18 [facility] [place] Work Phone: Squamous epithelial cells de tection in urine sediment by light microscopyon 05-08-2022 Epithelial cells.squamous LM Ql (Urine sed) 0-5 SEEN /hpf 5-10 [facility] [place] Work Phone: Thin prep Papanicolaou smear with manual screeningon 05-08-2022 Thin prep Papanicolaou smear with manual screening 29 U/L 15-37 [facility] [place] Work Phone: Thin prep Papanicolaou smear with manual screening 7 5-15 [facility] [place] Work Phone: Urine blood detectionon RBC Ql (U) Negative Negative [facility] [place] Work Phone: RBC Ql (U) 0 SEEN /hpf 0-5 [facility] [place] Work Phone: Urine clarityon 05-08-2022 Clarity (U) Clear Clear [facility] [place] Work Phone: Urine color determinationon 05-08-2022 Color (U) Yellow Yellow [facility] [place] Work Phone: Urine glucose detectionon Glucose Ql (U) Normal mg/dl Normal [facility] [place] Work Phone: Urine leukocyte esterase det ection by dipstickon 05-08-2022 Leukocyte esterase Test strip Ql (U) 25 /ul Negative [facility] [place] Work Phone: Urine pHon 05-08-2022 pH (U) 8.0 [pH] 5.0 - 8.0 [facility] [place] Work Phone: Urine sediment bacteria coun t by microscopy (number/high power field)on 05-08-2022 Bacteria LM.HPF (Urine sed) [#/Area] 1 /[HPF] None Seen [facility] [place] Work Phone: Urine specific gravity measu rementon 05-08-2022 Specific gravity (U) [Rel density] 1.010 1.002-1.03 0 [facility] [place] Work Phone: Urobilinogen Auto test strip Ql (U)on 05-08-2022 Urobilinogen Ql (U) Normal mg/dl Normal [facility] Work Phone: Basophil percentageon 2021 Chloride [Moles/Vol] 105 mmol/L 98-107 [facility] Work Phone: Glucose [Mass/Vol] 80 mg/dL 74-106 [facility] Work Phone: Potassium [Moles/Vol] 4.6 mmol/L 3.5-5.1 [facility] Work Phone: Sodium [Moles/Vol] 138 mmol/L 136-145 [facility] Work Phone: Laboratory - Chemistry and C hemistry - challengeon 03-12-2022 CO2 [Moles/Vol] 30.0 mmol/L 21.0-32.0 [facility] [place] Work Phone: Urea nitrogen/Creatinine [Mass ratio] 8.8 mg/mg 10-20 [facility] [place] Work Phone: No Panel Informationon 03-12 Estimated GFR (MDRD) Amer 92 mL/min >60 [facility] [place] Work Phone: Comment on above: GFR Calc Estimated GFR (MDRD) Non-Af Amer 76 mL/min >60 [facility] [place] Work Phone: Comment on above: Non- GFR Calc Serum or plasma calcium natalia urement (mass/volume)on 03-12-2022 Calcium [Mass/Vol] 9.1 mg/dL 8.5-10.1 [facility] Work Phone: Serum or plasma creatinine m easurement (mass/volume)on 03-12-2022 Creatinine [Mass/Vol] 0.80 mg/dL 0.55-1.02 [facility] Work Phone: Comment on above: The validity of the calculated GFR & GFRAA in patients over 70 years has not been determined. Clinical correlation is essential. Serum or plasma urea nitroge n measurement (mass/volume)on 03-12-2022 Urea nitrogen [Mass/Vol] 7 mg/dL 7-18 [facility] [place] Work Phone: Thin prep Papanicolaou smear with manual screeningon 03-12-2022 Thin prep Papanicolaou smear with manual screening 3 5-15 [facility] [place] Work Phone: Basophil percentageon 2021 Ammonia (P) [Moles/Vol] 41.0 umol/L 11-32 [facility] [place] Work Phone: Serum or plasma lamotrigine measurement (mass/volume)on 03-08-2022 lamoTRIgine [Mass/Vol] 3.5 ug/mL 2.0-20.0 [facility] Work Phone: Comment on above: Detection Limit = 1. 0Performed at: - [facility] [id number] Director: Tiff Tanner MD, Phone: [phone] B-TYPE NATRIURETIC PEPTIDE ( BRAIN)on 03-04-2022 Interpretation and review of laboratory results Abnormal [facility] Natriuretic peptide B (Bld) [Mass/Vol] 731 pg/mL High 0 - 100 pg/mL [facility] TSHon 03-04-2022 Interpretation and review of laboratory results Normal [facility] TSH Qn 1.608 m[IU]/L [facility] CONTINUOUS CARDIAC MONITORIN G STRIPOrdered By: Unassigned Pacs on 02-21-2022 [facility] Work Phone: HIGH SENSITIVITY TROPONIN I - SINGLE ORDERon 02-21-2022 Interpretation and review of laboratory results Normal [facility] Troponin I.cardiac DL <= 0.01 ng/mL [Mass/Vol] 4 ng/L <34 [facility] LT BLUE TOP TUBEon 2 [facility] VWDB-ROUTINE COAGon 02-22-20 22 aPTT Coag (PPP) [Time] 31.8 s OS [facility] Interpretation and review of laboratory results Normal [facility] CBC AND ELECTRONIC DIFFon Basophils (Bld) [#/Vol] 0.07 10*3/uL 0.00 - 0.15 K/uL [facility] Basophils/100 WBC (Bld) 0.7 % [facility] Differential cell count method Nom (Bld) Electronic Differential [facility] Eosinophils (Bld) [#/Vol] 0.21 10*3/uL 0.00 - 0.42 K/uL [facility] Eosinophils/100 WBC (Bld) 2.1 % [facility] Erythrocyte distribution width (RBC) [Ratio] 18.3 % High 10.8 - 14.9 % [facility] Hematocrit (Bld) [Volume fraction] 40.0 % 34.9 - 44.3 % [facility] Hemoglobin (Bld) [Mass/Vol] 12.4 g/dL 11.4 - 15.2 g/dL [facility] Immature granulocytes (Bld) [#/Vol] 0.16 10*3/uL High <=0.08 [facility] Immature granulocytes/100 WBC (Bld) 1.6 % [facility] Interpretation and review of laboratory results Abnormal [facility] Lymphocytes (Bld) [#/Vol] 2.45 10*3/uL 1.16 - 3.51 K/uL [facility] Lymphocytes/100 WBC (Bld) 24.2 % [facility] MCH (RBC) [Entitic mass] 25.3 pg Low 25.9 - 33.9 pg [facility] MCHC (RBC) [Mass/Vol] 31.0 g/dL Low 31.4 - 35.9 g/dL [facility] MCV (RBC) [Entitic vol] 81.5 fL 79.6 - 97.7 fL [facility] Monocytes (Bld) [#/Vol] 1.03 10*3/uL High 0.22 - 0.87 K/uL [facility] Monocytes/100 WBC (Bld) 10.2 % [facility] Neutrophils (Bld) [#/Vol] 6.19 10*3/uL 1.64 - 7.28 K/uL [facility] Nucleated RBC/100 WBC (Bld) [Ratio] 0.0 % <=0.2 /100 WBC [facility] Platelet mean volume (Bld) [Entitic vol] 11.1 fL 8.5 - 12.2 fL [facility] Platelets (Bld) [#/Vol] 325 10*3/uL 150 - 393 K/uL [facility] RBC (Bld) [#/Vol] 4.91 10*6/uL [facility] Segmented neutrophils/100 WBC (Bld) 61.2 % [facility] WBC (Bld) [#/Vol] 10.11 10*3/uL 3.99 - 11.19 K/uL [facility] PT,INR,PTTon 02-20-2022 aPTT Coag (PPP) [Time] 33.2 s [facility] INR Coag (Bld) [Relative time] 1.0 {INR} [facility] Interpretation and review of laboratory results Normal [facility] PT Coag (PPP) [Time] 13.4 s [facility] MULTIMERIC, VON WILLEBRAND ( CARDIO ONLY)on 01-09-2022 VON WILLEBRAND MULTIMERIC SEE BELOW [facility] Comment on above: All multimers of von Willebrand Factor Antigen are present in normal amounts. Reviewed by Sal Mathew M.D. Test Performed at: [facility] [address] [id number] Maximilian Maxwell M.D., Ph.D.,Director of Laboratories [facility] FACTOR XI ACTIVITYOrdered By : Leelee Menard on 01-04-2022 Coagulation factor XI activated Coag Qn (PPP) 80 [facility] Interpretation and review of laboratory results Normal [facility] VWDB-SPECIAL COAGon 01-05-20 22 Coagulation factor VIII activity actual/normal Coag (PPP) [Relative time] 48 % Low [facility] Interpretation and review of laboratory results Abnormal [facility] vWf Ag actual/normal IA (PPP) [Relative mass conc] 122 % 50 - 180 % [facility] vWf ristocetin cofactor act actual/normal Platelet aggregation (PPP) [Relative time] 139 [facility] CBC AND ELECTRONIC DIFFon Basophils (Bld) [#/Vol] 0.05 10*3/uL 0.00 - 0.15 K/uL [facility] Basophils/100 WBC (Bld) 0.5 % [facility] Differential cell count method Nom (Bld) Electronic Differential [facility] Eosinophils (Bld) [#/Vol] 0.22 10*3/uL 0.00 - 0.42 K/uL [facility] Eosinophils/100 WBC (Bld) 2.1 % [facility] Erythrocyte distribution width (RBC) [Ratio] 18.0 % High 10.8 - 14.9 % [facility] Hematocrit (Bld) [Volume fraction] 39.1 % 34.9 - 44.3 % [facility] Hemoglobin (Bld) [Mass/Vol] 12.3 g/dL 11.4 - 15.2 g/dL [facility] Immature granulocytes (Bld) [#/Vol] 0.06 10*3/uL <=0.09 [facility] Immature granulocytes/100 WBC (Bld) 0.6 % [facility] Interpretation and review of laboratory results Abnormal [facility] Lymphocytes (Bld) [#/Vol] 3.12 10*3/uL 1.16 - 3.51 K/uL [facility] Lymphocytes/100 WBC (Bld) 29.3 % [facility] MCH (RBC) [Entitic mass] 24.5 pg Low 25.9 - 33.9 pg [facility] MCHC (RBC) [Mass/Vol] 31.5 g/dL 31.4 - 35.9 g/dL [facility] MCV (RBC) [Entitic vol] 77.7 fL Low 79.6 - 97.7 fL [facility] Monocytes (Bld) [#/Vol] 0.89 10*3/uL High 0.22 - 0.87 K/uL [facility] Monocytes/100 WBC (Bld) 8.4 % [facility] Neutrophils (Bld) [#/Vol] 6.31 10*3/uL 1.64 - 7.28 K/uL [facility] Nucleated RBC/100 WBC (Bld) [Ratio] 0.0 % <=0.2 /100 WBC [facility] Platelet mean volume (Bld) [Entitic vol] 10.7 fL 8.5 - 12.2 fL [facility] Platelets (Bld) [#/Vol] 311 10*3/uL 150 - 393 K/uL [facility] RBC (Bld) [#/Vol] 5.03 10*6/uL [facility] Segmented neutrophils/100 WBC (Bld) 59.1 % [facility] WBC (Bld) [#/Vol] 10.65 10*3/uL 3.99 - 11.19 K/uL [facility] FERRITINon 01-03-2022 Ferritin [Mass/Vol] 8.8 ng/mL Low 10.0 - 291.0 ng/mL [facility] Interpretation and review of laboratory results Abnormal [facility] FIBRINOGEN, CLOTTABLEon Fibrinogen Coag (PPP) [Mass/Vol] 266 mg/dL 220 - 410 mg/dL [facility] Comment on above: Functional Fibrinoge n (activity) levels can be affected by direct thrombin inhibitors such as heparins (>2.0 IU/ml) and dabigatran. Abnormal results should be interpreted with caution. Interpretation and review of laboratory results Normal [facility] Fibrinogen levels m ay be altered by the normal physiologic changes of and should be interpreted considering reference ranges specific to gestational age. First Trimester: 244-510 mg/dL Second Trimester: 291-538 mg/dL Third Trimester: 373-619 mg/dL Reference: Monica M, Ana LG, Sukh FG. and laboratory studies: a reference table for clinicians. Obstet Gynecol 2009; 114:1326. [facility] HEPATITIS B SURFACE ANTIBODY Ordered By: Donnie Garza on 01-03-2022 HBV surface Ab IA Ql (S) Negative Negative [facility] HEPATITIS B SURFACE ANTIGENo n 01-03-2022 HBV surface Ag Ql (S) Negative Negative [facility] HIV 1 AND 2 ANTIBODIESon HIV 1+2 Ab+HIV1 p24 Ag IA Ql Non-Reactive Non Reactive [facility] IRON/IRON BINDING/TRANSFERRI Non 01-03-2022 Interpretation and review of laboratory results Abnormal [facility] Iron [Mass/Vol] 38 ug/dL Low [facility] Iron binding capacity [Mass/Vol] 586 High [facility] Iron saturation [Mass fraction] 6 % Low 20 - 55 % [facility] Transferrin [Mass/Vol] 393 mg/dL 200 - 400 mg/dL [facility] No Panel InformationOrdered By: Donnie Garza on 01-03-2022 Interpretation and review of laboratory results Normal [facility] PLATELET FUNCTION TESTOrdere d By: Roxie Pretty on 01-03-2022 Platelet function (closure time) collagen+ADP induced (Bld) [Time] 105 [facility] Platelet function (closure time) collagen+EPINEPHrine induced (Bld) [Time] 125 [facility] Platelet Function Interpretation Normal Collagen/Epinephrine and Collagen/ADP Closure Times. Result consistent with normal platelet function. [facility] PROTIME-INRon 01-03-2022 INR Coag (Bld) [Relative time] 1.1 {INR} [facility] Interpretation and review of laboratory results Abnormal [facility] PT Coag (PPP) [Time] 14.3 s High [facility] TYPE AND SCREENon 01-03-2022 ABO/RH(D) TYPE Positive [facility] VWDB-ROUTINE COAGon 01-04-20 22 aPTT Coag (PPP) [Time] 32.8 s OS [facility] Interpretation and review of laboratory results Normal [facility] Absolute lymphocyte counton 10-31-2021 Lymphocytes Auto (Unsp spec) [#/Vol] 2.92 10*3/uL 0.83-4.51 [facility] [place] Work Phone: Basophil percentageon 2021 Basophils/100 WBC (Bld) 0.9 % 0-1 [facility] [place] Work Phone: Chloride [Moles/Vol] 102 mmol/L 98-[address] [facility] Work Phone: Cholesterol [Mass/Vol] 145 mg/dL <200 [facility] Work Phone: Comment on above: <200 mg/dL Desirable 200-240 mg/dL Borderline >240 mg/dL High Risk Eosinophils/100 WBC (Bld) 3.0 % 0-5 [facility] [place] Work Phone: [phone] Glucose [Mass/Vol] 85 mg/dL 74-106 [facility] Work Phone: Neutrophils (Bld) [#/Vol] 5.9 10*3/uL 2.0-7.7 [facility] [place] Work Phone: Neutrophils/100 WBC (Bld) 57.2 % 47-70 [facility] [place] Work Phone: Potassium [Moles/Vol] 4.7 mmol/L 3.5-5.1 [facility] Work Phone: Sodium [Moles/Vol] 135 mmol/L 136-145 [facility] Work Phone: Triglyceride [Mass/Vol] 46 mg/dL <199 [facility] [place] Work Phone: Comment on above: The drugs N-Acetylcy steine and Metamizole may falsely depress this assay.Serum Triglycerides Reference Interval Normal <150 mg/dL Borderline high 150 - 199 mg/dL High 200 - 499 mg/dL Very High > or = 500 mg/dL WBC (Bld) [#/Vol] 10.4 10*3/uL 4.4-11.0 [facility] Work Phone: Blood erythrocytes count (nu mber/volume)on 10-31-2021 RBC (Bld) [#/Vol] 4.80 10*6/uL 4.2-5.4 [facility] Work Phone: Blood hemoglobin measurement (mass/volume)on 10-31-2021 Hemoglobin (Bld) [Mass/Vol] 11.5 g/dL 12.0-15.0 [facility] [place] Work Phone: Blood lymphocytes/100 leukoc yteson 10-31-2021 Lymphocytes/100 WBC (Bld) 28.2 % 19-41 [facility] [place] Work Phone: Blood monocytes/100 leukocyt eson 10-31-2021 Monocytes/100 WBC (Bld) 10.3 % 0-10 [facility] [place] Work Phone: Blood platelet mean volumeon 10-31-2021 Platelet mean volume (Bld) [Entitic vol] 10.9 fL 6.2-12.0 [facility] [place] Work Phone: Determination of erythrocyte mean corpuscular volume (MCV)on 10-31-2021 MCV (RBC) [Entitic vol] 74.2 fL 81-99 [facility] [place] Work Phone: Hematocrit Auto (Bld) [Volum e fraction]on 10-31-2021 Hematocrit (Bld) [Volume fraction] 35.6 % 37-47 [facility] [place] Work Phone: Laboratory - Chemistry and C hemistry - challengeon 10-31-2021 CO2 [Moles/Vol] 29.0 mmol/L 21.0-32.0 [facility] [place] Work Phone: Urea nitrogen/Creatinine [Mass ratio] 13.2 mg/mg 10-20 [facility] [place] Work Phone: Laboratory - Hematology and Cell countson 10-31-2021 Erythrocyte distribution width (RBC) [Entitic vol] 45.1 fL 35.1-43.9 [facility] [place] Work Phone: Erythrocyte distribution width (RBC) [Ratio] 17.1 % 11.6-14.6 [facility] [place] Work Phone: Immature granulocytes/100 WBC (Bld) 0.400 % 0.0-0.9 [facility] [place] Work Phone: Comment on above: IG% - Immature Granu locytes (promyelocytes, myelocytes and metamyelocytes) > 1% indicates that a LEFT SHIFT is Present. MCH (RBC) [Entitic mass] 24.0 pg 27.0-32.0 [facility] [place] Work Phone: Nucleated RBC/100 WBC (Bld) [Ratio] 0 % 0-5 [facility] [place] Work Phone: MCHC Auto (RBC) [Mass/Vol]on 10-31-2021 MCHC (RBC) [Mass/Vol] 32.3 g/dL 32-36 [facility] Work Phone: No Panel Informationon 10-31 Estimated Creatinine Clearance Calc 54.46 ml/min [facility] [place] Work Phone: Estimated GFR (MDRD) Amer 87 mL/min >60 [facility] [place] Work Phone: Comment on above: GFR Calc Estimated GFR (MDRD) Non-Af Amer 72 mL/min >60 [facility] [place] Work Phone: Comment on above: Non- GFR Calc Platelets bldon 10-31-2021 Platelets (Bld) [#/Vol] 315 10*3/uL 150-450 [facility] [place] Work Phone: Serum or plasma calcium natalia urement (mass/volume)on 10-31-2021 Calcium [Mass/Vol] 8.7 mg/dL 8.5-10.1 [facility] Work Phone: Serum or plasma cholesterol in HDL measurement (mass/volume)on 10-31-2021 Cholesterol in HDL [Mass/Vol] 60 mg/dL >40 [facility] [place] Work Phone: Comment on above: The drugs N-Acetylcy steine and Metamizole may falsely depress this assay. Reference Range HDL <40 mg/dL Low HDL Cholesterol HDL >or= 60 mg/dL High HDL Cholesterol Serum or plasma cholesterol in VLDL measurement (mass/volume)on 10-31-2021 Cholesterol in VLDL [Mass/Vol] 9 mg/dL 5-40 [facility] [place] Work Phone: Serum or plasma creatinine m easurement (mass/volume)on 10-31-2021 Creatinine [Mass/Vol] 0.83 mg/dL 0.55-1.02 [facility] Work Phone: Comment on above: The validity of the calculated GFR & GFRAA in patients over 70 years has not been determined. Clinical correlation is essential. Serum or plasma low density lipoprotein (LDL) cholesterol measurement (mass/volume)on 10-31-2021 Cholesterol in LDL [Mass/Vol] 76 mg/dL 0-130 [facility] [place] Work Phone: Serum or plasma urea nitroge n measurement (mass/volume)on 10-31-2021 Urea nitrogen [Mass/Vol] 11 mg/dL 7-18 [facility] [place] Work Phone: Thin prep Papanicolaou smear with manual screeningon 10-31-2021 Thin prep Papanicolaou smear with manual screening 4 5-15 [facility] [place] Work Phone: Absolute lymphocyte counton 10-30-2021 Lymphocytes Auto (Unsp spec) [#/Vol] 2.41 10*3/uL 0.83-4.51 [facility] [place] Work Phone: Basophil percentageon 2021 Basophils/100 WBC (Bld) 0.6 % 0-1 [facility] [place] Work Phone: Chloride [Moles/Vol] 105 mmol/L 98-107 [facility] Work Phone: [phone] Eosinophils/100 WBC (Bld) 1.5 % 0-5 [facility] [place] Work Phone: Glucose [Mass/Vol] 120 mg/dL 74-106 [facility] Work Phone: Comment on above: Fasting Glucose resu lt from 100 to 125 mg/dL suggests IMPAIRED HOMEOSTASIS per A.D.A. criteria. Neutrophils (Bld) [#/Vol] 8.0 10*3/uL 2.0-7.7 [facility] [place] Work Phone: Neutrophils/100 WBC (Bld) 68.3 % 47-70 [facility] [place] Work Phone: Potassium [Moles/Vol] 4.3 mmol/L 3.5-5.1 [facility] Work Phone: [phone] Sodium [Moles/Vol] 136 mmol/L 136-145 [facility] Work Phone: WBC (Bld) [#/Vol] 11.7 10*3/uL 4.4-11.0 [facility] Work Phone: Blood erythrocytes count (nu mber/volume)on 10-30-2021 RBC (Bld) [#/Vol] 4.75 10*6/uL 4.2-5.4 [facility] Work Phone: Blood hemoglobin measurement (mass/volume)on 10-30-2021 Hemoglobin (Bld) [Mass/Vol] 11.6 g/dL 12.0-15.0 [facility] [place] Work Phone: Blood lymphocytes/100 leukoc yteson 10-30-2021 Lymphocytes/100 WBC (Bld) 20.6 % 19-41 [facility] [place] Work Phone: Blood monocytes/100 leukocyt eson 10-30-2021 Monocytes/100 WBC (Bld) 8.3 % 0-10 [facility] [place] Work Phone: Blood platelet mean volumeon 10-30-2021 Platelet mean volume (Bld) [Entitic vol] 10.7 fL 6.2-12.0 [facility] [place] Work Phone: Determination of erythrocyte mean corpuscular volume (MCV)on 10-30-2021 MCV (RBC) [Entitic vol] 76.8 fL 81-99 [facility] [place] Work Phone: Hematocrit Auto (Bld) [Volum e fraction]on 10-30-2021 Hematocrit (Bld) [Volume fraction] 36.5 % 37-47 [facility] [place] Work Phone: Laboratory - Chemistry and C hemistry - challengeon 10-30-2021 CO2 [Moles/Vol] 28.0 mmol/L 21.0-32.0 [facility] [place] Work Phone: Urea nitrogen/Creatinine [Mass ratio] 13.1 mg/mg 10-20 [facility] [place] Work Phone: Laboratory - Hematology and Cell countson 10-30-2021 Erythrocyte distribution width (RBC) [Entitic vol] 47.2 fL 35.1-43.9 [facility] [place] Work Phone: Erythrocyte distribution width (RBC) [Ratio] 17.1 % 11.6-14.6 [facility] [place] Work Phone: Immature granulocytes/100 WBC (Bld) 0.700 % 0.0-0.9 [facility] [place] Work Phone: Comment on above: IG% - Immature Granu locytes (promyelocytes, myelocytes and metamyelocytes) > 1% indicates that a LEFT SHIFT is Present. MCH (RBC) [Entitic mass] 24.4 pg 27.0-32.0 [facility] [place] Work Phone: Nucleated RBC/100 WBC (Bld) [Ratio] 0 % 0-5 [facility] [place] Work Phone: MCHC Auto (RBC) [Mass/Vol]on 10-30-2021 MCHC (RBC) [Mass/Vol] 31.8 g/dL 32-36 [facility] Work Phone: No Panel Informationon 10-30 Troponin I High Sensitivity < 3 pg/mL 3.0-54.0 [facility] [place] Work Phone: Comment on above: Please Note: New Angela t Units and Gender Specific Reference Ranges. For more information see Policy Stat Procedure [place] High Sensitivity Troponin (TNIH) and attachments. D-Dimer Quantitative (PE/DVT) 0.40 FEU/ug/m 0.27-0.49 [facility] [place] Work Phone: Comment on above: NORMAL D-Dimer level (<0.50) indicates no DVT or PE. Estimated Creatinine Clearance Calc 49.13 ml/min [facility] [place] Work Phone: Estimated GFR (MDRD) Amer 78 mL/min >60 [facility] [place] Work Phone: Comment on above: GFR Calc Estimated GFR (MDRD) Non-Af Amer 65 mL/min >60 [facility] [place] Work Phone: Comment on above: Non- GFR Calc Troponin I High Sensitivity 4 pg/mL 3.0-54.0 [facility] [place] Work Phone: Comment on above: Please Note: New Angela t Units and Gender Specific Reference Ranges. For more information see Policy Stat Procedure [place] High Sensitivity Troponin (TNIH) and attachments. Platelets bldon 10-30-2021 Platelets (Bld) [#/Vol] 344 10*3/uL 150-450 [facility] [place] Work Phone: Serum or plasma calcium natalia urement (mass/volume)on 10-30-2021 Calcium [Mass/Vol] 9.6 mg/dL 8.5-10.1 [facility] Work Phone: Serum or plasma creatinine m easurement (mass/volume)on 10-30-2021 Creatinine [Mass/Vol] 0.92 mg/dL 0.55-1.02 [facility] Work Phone: Comment on above: The validity of the calculated GFR & GFRAA in patients over 70 years has not been determined. Clinical correlation is essential. Serum or plasma urea nitroge n measurement (mass/volume)on 10-30-2021 Urea nitrogen [Mass/Vol] 12 mg/dL 7-18 [facility] [place] Work Phone: Thin prep Papanicolaou smear with manual screeningon 10-30-2021 Thin prep Papanicolaou smear with manual screening 3 5-15 [facility] [place] Work Phone: Basophil percentageon 2021 Chloride [Moles/Vol] 101 mmol/L 98-107 [facility] Work Phone: Glucose [Mass/Vol] 98 mg/dL 74-106 [facility] Work Phone: Potassium [Moles/Vol] 5.3 mmol/L 3.5-5.1 [facility] Work Phone: Sodium [Moles/Vol] 135 mmol/L 136-145 [facility] Work Phone: Laboratory - Chemistry and C hemistry - challengeon 09-24-2021 CO2 [Moles/Vol] 29.0 mmol/L 21.0-32.0 [facility] [place] Work Phone: Magnesium [Mass/Vol] 2.4 mg/dL 1.6-2.6 [facility] Work Phone: Urea nitrogen/Creatinine [Mass ratio] 9.8 mg/mg 10-20 [facility] [place] Work Phone: No Panel Informationon 09-24 Estimated GFR (MDRD) Amer 89 mL/min >60 [facility] [place] Work Phone: Comment on above: GFR Calc Estimated GFR (MDRD) Non-Af Amer 74 mL/min >60 [facility] [place] Work Phone: Comment on above: Non- GFR Calc Serum or plasma calcium natalia urement (mass/volume)on 09-24-2021 Calcium [Mass/Vol] 9.2 mg/dL 8.5-10.1 [facility] Work Phone: Serum or plasma creatinine m easurement (mass/volume)on 09-24-2021 Creatinine [Mass/Vol] 0.81 mg/dL 0.55-1.02 [facility] Work Phone: Comment on above: The validity of the calculated GFR & GFRAA in patients over 70 years has not been determined. Clinical correlation is essential. Serum or plasma urea nitroge n measurement (mass/volume)on 09-24-2021 Urea nitrogen [Mass/Vol] 8 mg/dL 7-18 [facility] [place] Work Phone: Thin prep Papanicolaou smear with manual screeningon 09-24-2021 Thin prep Papanicolaou smear with manual screening 5 5-15 [facility] [place] Work Phone: Thin prep Papanicolaou smear with manual screening 289 mOsm/KG 280-301 [facility] [place] Work Phone: Absolute lymphocyte counton 09-20-2021 Lymphocytes Auto (Unsp spec) [#/Vol] 1.83 10*3/uL 0.83-4.51 [facility] [place] Work Phone: Basophil percentageon 2021 Basophils/100 WBC (Bld) 0.2 % 0-1 [facility] [place] Work Phone: Bilirubin [Mass/Vol] 0.60 mg/dL 0.20-1.00 [facility] Work Phone: Comment on above: For patients on eltr ombopag therapy, use of Dimension [place] TBIL is not recommended. Chloride [Moles/Vol] 96 mmol/L 98-107 [facility] Work Phone: Eosinophils/100 WBC (Bld) 0.1 % 0-5 [facility] [place] Work Phone: Glucose [Mass/Vol] 108 mg/dL 74-106 [facility] Work Phone: Comment on above: Fasting Glucose resu lt from 100 to 125 mg/dL suggests IMPAIRED HOMEOSTASIS per A.D.A. criteria. Neutrophils (Bld) [#/Vol] 9.9 10*3/uL 2.0-7.7 [facility] [place] Work Phone: Neutrophils/100 WBC (Bld) 78.6 % 47-70 [facility] [place] Work Phone: [phone] Potassium [Moles/Vol] 4.7 mmol/L 3.5-5.1 [facility] Work Phone: Protein [Mass/Vol] 7.2 g/dL 6.4-8.2 [facility] Work Phone: [phone] Sodium [Moles/Vol] 129 mmol/L 136-145 [facility] Work Phone: WBC (Bld) [#/Vol] 12.6 10*3/uL 4.4-11.0 [facility] Work Phone: [phone] Blood erythrocytes count (nu mber/volume)on 09-20-2021 RBC (Bld) [#/Vol] 4.40 10*6/uL 4.2-5.4 [facility] Work Phone: Blood hemoglobin measurement (mass/volume)on 09-20-2021 Hemoglobin (Bld) [Mass/Vol] 10.9 g/dL 12.0-15.0 [facility] [place] Work Phone: [phone] Blood lymphocytes/100 leukoc yteson 09-20-2021 Lymphocytes/100 WBC (Bld) 14.5 % 19-41 [facility] [place] Work Phone: [phone] Blood monocytes/100 leukocyt eson 09-20-2021 Monocytes/100 WBC (Bld) 6.0 % 0-10 [facility] [place] Work Phone: Blood platelet mean volumeon 09-20-2021 Platelet mean volume (Bld) [Entitic vol] 11.5 fL 6.2-12.0 [facility] [place] Work Phone: Determination of erythrocyte mean corpuscular volume (MCV)on 09-20-2021 MCV (RBC) [Entitic vol] 76.4 fL 81-99 [facility] [place] Work Phone: Erythrocyte sedimentation ra debora 09-20-2021 ESR (Bld) [Velocity] 11 mm/h 0-30 [facility] Work Phone: Hematocrit Auto (Bld) [Volum e fraction]on 09-20-2021 Hematocrit (Bld) [Volume fraction] 33.6 % 37-47 [facility] [place] Work Phone: Iron measurement (mass/mass) on 09-20-2021 Iron (Unsp spec) [Mass/Mass] 34 ug/dL 50-170 [facility] [place] Work Phone: Laboratory - Chemistry and C hemistry - challengeon 09-20-2021 ALP [Catalytic activity/Vol] 54 U/L 45-117 [facility] [place] Work Phone: ALT [Catalytic activity/Vol] 16 U/L 13-56 [facility] [place] Work Phone: CO2 [Moles/Vol] 24.0 mmol/L 21.0-32.0 [facility] [place] Work Phone: Globulin (S) [Mass/Vol] 3.1 g/dL 2.2-4.2 [facility] [place] Work Phone: Urea nitrogen/Creatinine [Mass ratio] 11.8 mg/mg 10-20 [facility] [place] Work Phone: Laboratory - Hematology and Cell countson 09-20-2021 Erythrocyte distribution width (RBC) [Entitic vol] 41.6 fL 35.1-43.9 [facility] [place] Work Phone: Erythrocyte distribution width (RBC) [Ratio] 15.1 % 11.6-14.6 [facility] [place] Work Phone: Immature granulocytes/100 WBC (Bld) 0.600 % 0.0-0.9 [facility] [place] Work Phone: Comment on above: IG% - Immature Granu locytes (promyelocytes, myelocytes and metamyelocytes) > 1% indicates that a LEFT SHIFT is Present. MCH (RBC) [Entitic mass] 24.8 pg 27.0-32.0 [facility] [place] Work Phone: Nucleated RBC/100 WBC (Bld) [Ratio] 0 % 0-5 [facility] [place] Work Phone: MCHC Auto (RBC) [Mass/Vol]on 09-20-2021 MCHC (RBC) [Mass/Vol] 32.4 g/dL 32-36 [facility] Work Phone: No Panel Informationon 09-20 Estimated GFR (MDRD) Amer 86 mL/min >60 [facility] [place] Work Phone: Comment on above: GFR Calc Estimated GFR (MDRD) Non-Af Amer 71 mL/min >60 [facility] [place] Work Phone: Comment on above: Non- GFR Calc Thyroid Stimulating Hormone (TSH) 1.32 uIU/mL 0.358-3.74 [facility] [place] Work Phone: Vitamin B12 Level > 2000 pg/mL 211-911 [facility] Work Phone: Vitamin D 25-Hydroxy 53.4 ng/mL [facility] Work Phone: Comment on above: Vitamin D 25(OH) Sta tus Range Deficiency <20 ng/mL (50nmol/L) Insufficiency 20 - 30 ng/mL (50 - 75 nmol/L) Sufficiency 30 - 100 ng/mL (75 - 250 nmol/L) Toxicity >100 ng/mL (>250 nmol/L) Platelets bldon 09-20-2021 Platelets (Bld) [#/Vol] 363 10*3/uL 150-450 [facility] [place] Work Phone: Serum or plasma C reactive p rotein measurement (mass/volume)on 09-20-2021 CRP [Mass/Vol] 2.99 mg/L 0.0-3.0 [facility] [place] Work Phone: Comment on above: C-Reactive Protein ( CRP) provides useful information for thediagnosis, therapy and monitoring of inflammatory processesand associated diseases. For the evaluation of Relative Riskfor Cardiovascular Disease, a High Sensitivity CRP (HSCRP)should be ordered. Serum or plasma albumin natalia urement (mass/volume)on 09-20-2021 Albumin [Mass/Vol] 4.1 g/dL 3.2-5.0 [facility] Work Phone: Serum or plasma albumin/glob ulin mass ratioon 09-20-2021 Albumin/Globulin [Mass ratio] 1.3 {ratio} 0.9-2.4 [facility] [place] Work Phone: Serum or plasma calcium natalia urement (mass/volume)on 09-20-2021 Calcium [Mass/Vol] 9.3 mg/dL 8.5-10.1 [facility] Work Phone: Serum or plasma creatinine m easurement (mass/volume)on 09-20-2021 Creatinine [Mass/Vol] 0.84 mg/dL 0.55-1.02 [facility] Work Phone: Comment on above: The validity of the calculated GFR & GFRAA in patients over 70 years has not been determined. Clinical correlation is essential. Serum or plasma ferritin ceasar surement (mass/volume)on 09-20-2021 Ferritin [Mass/Vol] 10 ng/mL 8-252 [facility] Work Phone: Serum or plasma folate measu rement (mass/volume)on 09-20-2021 Folate [Mass/Vol] 29.90 ng/mL 3.1-55.4 [facility] Work Phone: Serum or plasma urea nitroge n measurement (mass/volume)on 09-20-2021 Urea nitrogen [Mass/Vol] 10 mg/dL 7-18 [facility] [place] Work Phone: Thin prep Papanicolaou smear with manual screeningon 09-20-2021 Thin prep Papanicolaou smear with manual screening 20 U/L 15-37 [facility] [place] Work Phone: Thin prep Papanicolaou smear with manual screening 9 5-15 [facility] [place] Work Phone: Culture, urine Bacteria identified Cx Nom (U) Streptococcus agalactiae (B) [facility] [place] Work Phone: Bacteria identified 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 Haroon Patel MD Work Phone: [facility] [place] 01-24-2025 11:52-0400 Body weight 57.[address] Haroon Patel MD Work Phone: [facility] [place] 01-24-2025 11:52-0400 Diastolic blood pressure 83 mm[Hg] Dr. Haroon Patel MD Work Phone: [facility] [place] 01-24-2025 11:52-0400 Heart rate 74 /min Dr. Haroon Patel MD Work Phone: [facility] [place] 01-24-2025 11:52-0400 Respiratory rate 17 /min Dr. Haroon Patel MD Work Phone: [facility] [place] 01-24-2025 11:52-0400 SaO2% (BldA) [Mass fraction] 99 % Dr. Haroon Patel MD Work Phone: [facility] [place] 01-24-2025 11:52-0400 Systolic blood pressure 129 mm[Hg] Dr. Haroon Patel MD Work Phone: [facility] [place] 12-23-2024 09:59-0400 Body height 162.[address] Haroon Patel MD Work Phone: [facility] [place] 12-23-2024 09:59-0400 Body mass index (BMI) [Ratio] 21.6 kg/m2 Dr. Haroon Patel MD Work Phone: [facility] [place] 12-23-2024 09:59-0400 Body temperature 97.3 [degF] Dr. Haroon Patel MD Work Phone: [phone] [address] 12-23-2024 09:59-0400 Body weight 57.[address] Haroon Patel MD Work Phone: [facility] [place] 12-23-2024 09:59-0400 Diastolic blood pressure 83 mm[Hg] Dr. Haroon Patel MD Work Phone: [phone] [place] [address] 12-23-2024 09:59-0400 Heart rate 93 /min Dr. Haroon Patel MD Work Phone: [phone] [place] [address] 12-23-2024 09:59-0400 Respiratory rate 15 /min Dr. Haroon Patel MD Work Phone: [phone])[phone] [address] 12-23-2024 09:59-0400 SaO2% (BldA) [Mass fraction] 100 % Dr. Haroon Patel MD Work Phone: [phone] [address] 12-23-2024 09:59-0400 Systolic blood pressure 130 mm[Hg] Dr. Haroon Patel MD Work Phone: [phone] [place] [address] 09-27-2024 13:31-0500 Body mass index (BMI) [Ratio] 21.4 kg/m2 Dr. Haroon Patel MD Work Phone: [phone] [place] [address] 09-27-2024 13:31-0500 Body weight 56.[address] Haroon Patel MD Work Phone: [phone] [place] [address] 09-27-2024 13:31-0500 Diastolic blood pressure 87 mm[Hg] Dr. Haroon Patel MD Work Phone: [phone] [address] 09-27-2024 13:31-0500 Heart rate 68 /min Dr. Haroon Patel MD Work Phone: [facility] [place] 09-27-2024 13:31-0500 SaO2% (BldA) [Mass fraction] 97 % Dr. Haroon Patel MD Work Phone: [facility] [place] 09-27-2024 13:31-0500 Systolic blood pressure 130 mm[Hg] Dr. Haroon Patel MD Work Phone: [facility] [place] 09-10-2024 14:27-0500 Body mass index (BMI) [Ratio] 21.18 kg/m2 Sherley He MD Work Phone: [facility] 09-10-2024 14:27-0500 Body weight 55.97 kg Sherley He MD Work Phone: [facility] 09-10-2024 14:27-0500 Diastolic blood pressure 84 mm[Hg] Sherley He MD Work Phone: [facility] 09-10-2024 14:27-0500 Heart rate 75 /min Sherley He MD Work Phone: [facility] 09-10-2024 14:27-0500 SaO2% (BldA) [Mass fraction] 99 % Sherley He MD Work Phone: [facility] 09-10-2024 14:27-0500 Systolic blood pressure 153 mm[Hg] Sherley He MD Work Phone: [facility] 09-26-2023 09:57-0500 Body height 162.[address] Robert Patel Work Phone: [facility] [place] 09-26-2023 09:57-0500 Body temperature 98.1 [degF] Dr. Robert Patel Work Phone: [facility] [place] 09-26-2023 09:57-0500 Diastolic blood pressure 89 mm[Hg] Dr. Robert Patel Work Phone: [facility] [place] 09-26-2023 09:57-0500 Heart rate 75 /min Dr. Robert Patel Work Phone: [facility] [place] 09-26-2023 09:57-0500 Respiratory rate 16 /min Dr. Robert Patel Work Phone: [facility] [place] 09-26-2023 09:57-0500 SaO2% (BldA) [Mass fraction] 98 % Dr. Robert Patel Work Phone: [facility] [place] 09-26-2023 09:57-0500 Systolic blood pressure 142 mm[Hg] Dr. Robert Patel Work Phone: 4(140)[phone] [place] [address] 07-03-2023 14:08-0500 Body height 162.[address] Robert Patel Work Phone: [phone](021)[phone] [address] 07-03-2023 14:08-0500 Body mass index (BMI) [Ratio] 22.8 kg/m2 Dr. Robert Patel Work Phone: [facility] [place] 07-03-2023 14:08-0500 Body temperature 97.8 [degF] Dr. Robert Patel Work Phone: [facility] [place] 07-03-2023 14:08-0500 Body weight 60.[address] Robert Patel Work Phone: [facility] [place] 07-03-2023 14:08-0500 Diastolic blood pressure 76 mm[Hg] Dr. Robert Patel Work Phone: [facility] [place] 07-03-2023 14:08-0500 Heart rate 75 /min Dr. Robert Patel Work Phone: [facility] [place] 07-03-2023 14:08-0500 Respiratory rate 17 /min Dr. Robert Patel Work Phone: [facility] [place] 07-03-2023 14:08-0500 SaO2% (BldA) [Mass fraction] 98 % Dr. Robert Patel Work Phone: [facility] [place] 07-03-2023 14:08-0500 Systolic blood pressure 124 mm[Hg] Dr. Robert Patel Work Phone: [facility] [place] 03-28-2023 10:20-0400 Body height 162.[address] Robert Patel Work Phone: [facility] [place] 03-28-2023 10:20-0400 Body mass index (BMI) [Ratio] 22.4 kg/m2 Dr. Robert Patel Work Phone: [facility] [place] 03-28-2023 10:20-0400 Body weight 59.[address] Robert Patel Work Phone: [facility] [place] 03-28-2023 10:20-0400 Diastolic blood pressure 64 mm[Hg] Dr. Robert Patel Work Phone: [facility] [place] 03-28-2023 10:20-0400 Heart rate 66 /min Dr. Robert Patel Work Phone: [facility] [place] 03-28-2023 10:20-0400 Respiratory rate 16 /min Dr. Robert Patel Work Phone: [facility] [place] 03-28-2023 10:20-0400 SaO2% (BldA) [Mass fraction] 100 % Dr. Robert Patel Work Phone: [facility] [place] 03-28-2023 10:20-0400 Systolic blood pressure 138 mm[Hg] Dr. Robert Patel Work Phone: [facility] [place] 02-25-2023 14:46-0400 Body height 162.[address] Robert Patel Work Phone: [facility] [place] 02-25-2023 14:46-0400 Body mass index (BMI) [Ratio] 22.8 kg/m2 Dr. Robert Patel Work Phone: [facility] [place] 02-25-2023 14:46-0400 Body temperature 97.9 [degF] Dr. Robert Patel Work Phone: [facility] [place] 02-25-2023 14:46-0400 Body weight 60.[address] Robert Patel Work Phone: [facility] [place] 02-25-2023 14:46-0400 Diastolic blood pressure 82 mm[Hg] Dr. Robert Patel Work Phone: [facility] [place] 02-25-2023 14:46-0400 Heart rate 75 /min Dr. Robert Patel Work Phone: [facility] [place] 02-25-2023 14:46-0400 Respiratory rate 16 /min Dr. Robert Patel Work Phone: [facility] [place] 02-25-2023 14:46-0400 SaO2% (BldA) [Mass fraction] 99 % Dr. Robert Patel Work Phone: [facility] [place] 02-25-2023 14:46-0400 Systolic blood pressure 150 mm[Hg] Dr. Robert Patel Work Phone: [facility] [place] 01-30-2023 09:21-0400 Body height 162.[address] Robert Patel Work Phone: [facility] [place] 01-30-2023 09:21-0400 Body mass index (BMI) [Ratio] 22.6 kg/m2 Dr. Robert Patel Work Phone: [facility] [place] 01-30-2023 09:21-0400 Body temperature 98 [degF] Dr. Robert Patel Work Phone: [facility] [place] 01-30-2023 09:21-0400 Body weight 59.[address] Robert Patel Work Phone: [facility] [place] 01-30-2023 09:21-0400 Diastolic blood pressure 78 mm[Hg] Dr. Robert Patel Work Phone: [facility] [place] 01-30-2023 09:21-0400 Heart rate 61 /min Dr. Robert Patel Work Phone: [facility] [place] 01-30-2023 09:21-0400 Respiratory rate 16 /min Dr. Robert Patel Work Phone: [facility] [place] 01-30-2023 09:21-0400 SaO2% (BldA) [Mass fraction] 99 % Dr. Robert Patel Work Phone: [facility] [place] 01-30-2023 09:21-0400 Systolic blood pressure 140 mm[Hg] Dr. Robert Patel Work Phone: [facility] [place] 01-27-2023 14:11-0400 Body mass index (BMI) [Ratio] 23 kg/m2 Dr. Robert Patel Work Phone: [facility] [place] 01-27-2023 14:11-0400 Body temperature 98.4 [degF] Dr. Robert Patel Work Phone: [facility] [place] 01-27-2023 14:11-0400 Body weight 60.[address] Robert Patel Work Phone: [facility] [place] 01-27-2023 14:11-0400 Diastolic blood pressure 99 mm[Hg] Dr. Robert Patel Work Phone: [facility] [place] 01-27-2023 14:11-0400 Heart rate 88 /min Dr. Robert Patel Work Phone: [facility] [place] 01-27-2023 14:11-0400 Respiratory rate 18 /min Dr. Robert Patel Work Phone: [facility] [place] 01-27-2023 14:11-0400 SaO2% (BldA) [Mass fraction] 97 % Dr. Robert Patel Work Phone: [facility] [place] 01-27-2023 14:11-0400 Systolic blood pressure 145 mm[Hg] Dr. Robert Patel Work Phone: [facility] [place] 01-07-2023 17:56-0400 Body height 162.[address] Robert Patel Work Phone: [facility] [place] 01-07-2023 17:56-0400 Body mass index (BMI) [Ratio] 22.8 kg/m2 Dr. Robert Patel Work Phone: [facility] [place] 01-07-2023 17:56-0400 Body temperature 96.1 [degF] Dr. Robert Patel Work Phone: [facility] [place] 01-07-2023 17:56-0400 Body weight 60.[address] Robert Patel Work Phone: [facility] [place] 01-07-2023 17:56-0400 Diastolic blood pressure 79 mm[Hg] Dr. Robert Patel Work Phone: [facility] [place] 01-07-2023 17:56-0400 Heart rate 79 /min Dr. Robert Patel Work Phone: [facility] [place] 01-07-2023 17:56-0400 Respiratory rate 18 /min Dr. Robert Patel Work Phone: [facility] [place] 01-07-2023 17:56-0400 SaO2% (BldA) [Mass fraction] 100 % Dr. Robert Patel Work Phone: [facility] [place] 01-07-2023 17:56-0400 Systolic blood pressure 177 mm[Hg] Dr. Robert Patel Work Phone: [facility] [place] 12-31-2022 12:11-0400 Body mass index (BMI) [Ratio] 22.8 kg/m2 Dr. Robert Patel Work Phone: [facility] [place] 12-31-2022 12:11-0400 Body temperature 98.2 [degF] Dr. Robert Patel Work Phone: [facility] [place] 12-31-2022 12:11-0400 Body weight 60.[address] Robert Patel Work Phone: [facility] [place] 12-31-2022 12:11-0400 Diastolic blood pressure 70 mm[Hg] Dr. Robert Patel Work Phone: [facility] [place] 12-31-2022 12:11-0400 Heart rate 76 /min Dr. Robert Patel Work Phone: [facility] [place] 12-31-2022 12:11-0400 Respiratory rate 16 /min Dr. Robert Patel Work Phone: [facility] [place] 12-31-2022 12:11-0400 SaO2% (BldA) [Mass fraction] 98 % Dr. Robert Patel Work Phone: [facility] [place] 12-31-2022 12:11-0400 Systolic blood pressure 122 mm[Hg] Dr. Robert Patel Work Phone: [facility] [place] 11-27-2022 10:15-0400 Body height 162.[address] Robert Patel Work Phone: [phone])[phone] [place] [address] 11-27-2022 10:15-0400 Body mass index (BMI) [Ratio] 23.3 kg/m2 Dr. Robert Patel Work Phone: [facility] [place] 11-27-2022 10:15-0400 Body temperature 97.6 [degF] Dr. Robert Patel Work Phone: [facility] [place] 11-27-2022 10:15-0400 Body weight 61.[address] Robert Patel Work Phone: [facility] [place] 11-27-2022 10:15-0400 Diastolic blood pressure 80 mm[Hg] Dr. Robert Patel Work Phone: [facility] [place] 11-27-2022 10:15-0400 Heart rate 76 /min Dr. Robert Patel Work Phone: [facility] [place] 11-27-2022 10:15-0400 Respiratory rate 17 /min Dr. Robert Patel Work Phone: [facility] [place] 11-27-2022 10:15-0400 SaO2% (BldA) [Mass fraction] 97 % Dr. Robert Patel Work Phone: [facility] [place] 11-27-2022 10:15-0400 Systolic blood pressure 140 mm[Hg] Dr. Robert Patel Work Phone: [facility] [place] 10-28-2022 10:28-0400 Body mass index (BMI) [Ratio] 22.8 kg/m2 Dr. Robert Patel Work Phone: [facility] [place] 10-28-2022 10:28-0400 Body temperature 98 [degF] Dr. Robert Patel Work Phone: [facility] [place] 10-28-2022 10:28-0400 Body weight 60.[address] Robert Patel Work Phone: [phone])[phone] [place] [address] 10-28-2022 10:28-0400 Diastolic blood pressure 80 mm[Hg] Dr. Robert Patel Work Phone: [facility] [place] 10-28-2022 10:28-0400 Heart rate 72 /min Dr. Robert Patel Work Phone: [facility] [place] 10-28-2022 10:28-0400 Respiratory rate 17 /min Dr. Robert Patel Work Phone: [facility] [place] 10-28-2022 10:28-0400 SaO2% (BldA) [Mass fraction] 98 % Dr. Robert Patel Work Phone: [facility] [place] 10-28-2022 10:28-0400 Systolic blood pressure 158 mm[Hg] Dr. Robert Patel Work Phone: [facility] [place] 10-07-2022 14:35-0500 Body height 162.[address] Robert Patel Work Phone: [facility] [place] 10-07-2022 14:35-0500 Body mass index (BMI) [Ratio] 22.3 kg/m2 Dr. Robert Patel Work Phone: [facility] [place] 10-07-2022 14:35-0500 Body weight 58.[address] Robert Patel Work Phone: [facility] [place] 10-07-2022 14:35-0500 Diastolic blood pressure 74 mm[Hg] Dr. Robert Patel Work Phone: [facility] [place] 10-07-2022 14:35-0500 Heart rate 78 /min Dr. Robert Patel Work Phone: [facility] [place] 10-07-2022 14:35-0500 Respiratory rate 18 /min Dr. Robert Patel Work Phone: [facility] [place] 10-07-2022 14:35-0500 SaO2% (BldA) [Mass fraction] 99 % Dr. Robert Patel Work Phone: [facility] [place] 10-07-2022 14:35-0500 Systolic blood pressure 107 mm[Hg] Dr. Robert Patel Work Phone: [facility] [place] 09-27-2022 12:55-0500 Body height 162.[address] Robert Patel Work Phone: [facility] [place] 09-27-2022 12:55-0500 Body mass index (BMI) [Ratio] 22.8 kg/m2 Dr. Robert Patel Work Phone: [facility] [place] 09-27-2022 12:55-0500 Body temperature 96.6 [degF] Dr. Robert Patel Work Phone: [facility] [place] 09-27-2022 12:55-0500 Body weight 60.[address] Robert Patel Work Phone: [facility] [place] 09-27-2022 12:55-0500 Diastolic blood pressure 86 mm[Hg] Dr. Robert Patel Work Phone: [facility] [place] 09-27-2022 12:55-0500 Heart rate 64 /min Dr. Robert Patel Work Phone: [facility] [place] 09-27-2022 12:55-0500 Respiratory rate 16 /min Dr. Robert Patel Work Phone: [facility] [place] 09-27-2022 12:55-0500 SaO2% (BldA) [Mass fraction] 100 % Dr. Robert Patel Work Phone: [facility] [place] 09-27-2022 12:55-0500 Systolic blood pressure 133 mm[Hg] Dr. Robert Patel Work Phone: 2(900)[phone] [place] [address] 09-25-2022 08:45-0500 Body mass index (BMI) [Ratio] 22.8 kg/m2 Dr. Robert Patel Work Phone: 8(548)[phone] [place] [address] 09-25-2022 08:45-0500 Body temperature 98.2 [degF] Dr. Robert Patel Work Phone: 3(753)[phone] [address] 09-25-2022 08:45-0500 Body weight 60.[address] Robert Patel Work Phone: [facility] [place] 09-25-2022 08:45-0500 Diastolic blood pressure 82 mm[Hg] Dr. Robert Patel Work Phone: [facility] [place] 09-25-2022 08:45-0500 Heart rate 71 /min Dr. Robert Patel Work Phone: [facility] [place] 09-25-2022 08:45-0500 Respiratory rate 18 /min Dr. Robert Patel Work Phone: [facility] [place] 09-25-2022 08:45-0500 SaO2% (BldA) [Mass fraction] 98 % Dr. Robert Patel Work Phone: [facility] [place] 09-25-2022 08:45-0500 Systolic blood pressure 142 mm[Hg] Dr. Robert Patel Work Phone: [phone](625)[phone] [place] [address] 08-19-2022 15:22-0500 Body height 162.6 cm Sherley He MD Work Phone: [facility] 08-19-2022 15:22-0500 Body weight 59.88 kg Sherley He MD Work Phone: [facility] 08-19-2022 15:22-0500 Diastolic blood pressure 86 mm[Hg] Sherley He MD Work Phone: [facility] 08-19-2022 15:22-0500 Heart rate 76 /min Sherley He MD Work Phone: [facility] 08-19-2022 15:22-0500 SaO2% (BldA) [Mass fraction] 100 % Sherley He MD Work Phone: [facility] 08-19-2022 15:22-0500 Systolic blood pressure 147 mm[Hg] Sherley He MD Work Phone: [facility] 07-09-2022 13:31-0500 Body mass index (BMI) [Ratio] 22.4 kg/m2 Dr. Robert Patel Work Phone: [facility] [place] 07-09-2022 13:31-0500 Body temperature 97.8 [degF] Dr. Robert Patel Work Phone: [facility] [place] 07-09-2022 13:31-0500 Body weight 59.[address] Robert Patel Work Phone: [facility] [place] 07-09-2022 13:31-0500 Diastolic blood pressure 97 mm[Hg] Dr. Robert Patel Work Phone: [facility] [place] 07-09-2022 13:31-0500 Heart rate 63 /min Dr. Robert Patel Work Phone: [facility] [place] 07-09-2022 13:31-0500 Respiratory rate 16 /min Dr. Robert Patel Work Phone: [facility] [place] 07-09-2022 13:31-0500 SaO2% (BldA) [Mass fraction] 99 % Dr. Robert Patel Work Phone: [facility] [place] 07-09-2022 13:31-0500 Systolic blood pressure 143 mm[Hg] Dr. Robert Patel Work Phone: [facility] [place] 05-15-2022 13:22-0400 Body height 162.[address] Robert Patel Work Phone: [facility] [place] Work Phone: 05-15-2022 13:22-0400 Body mass index (BMI) [Ratio] 22.4 kg/m2 Dr. Robert Patel Work Phone: [facility] [place] Work Phone: 05-15-2022 13:22-0400 Body weight 59.[address] Robert Patel Work Phone: [facility] [place] Work Phone: 05-15-2022 13:22-0400 Diastolic blood pressure 70 mm[Hg] Dr. Robert Patel Work Phone: [facility] [place] Work Phone: 05-15-2022 13:22-0400 Heart rate 80 /min Dr. Robert Patel Work Phone: [facility] [place] Work Phone: 05-15-2022 13:22-0400 Respiratory rate 16 /min Dr. Robert Patel Work Phone: [facility] [place] Work Phone: 05-15-2022 13:22-0400 Systolic blood pressure 126 mm[Hg] Dr. Robert Patel Work Phone: [facility] [place] Work Phone: 05-09-2022 20:43-0400 Body temperature 97.2 [degF] Dr. Robert Patel Work Phone: [facility] [place] Work Phone: 05-09-2022 20:43-0400 Diastolic blood pressure 76 mm[Hg] Dr. Robert Patel Work Phone: [facility] [place] Work Phone: 05-09-2022 20:43-0400 Heart rate 65 /min Dr. Robetr Patel Work Phone: [facility] [place] Work Phone: 05-09-2022 20:43-0400 Respiratory rate 15 /min Dr. Robert Patel Work Phone: [facility] [place] Work Phone: 05-09-2022 20:43-0400 SaO2% (BldA) [Mass fraction] 98 % Dr. Robert Patel Work Phone: [facility] [place] Work Phone: 05-09-2022 20:43-0400 Systolic blood pressure 162 mm[Hg] Dr. Robert Patel Work Phone: [facility] [place] Work Phone: 05-09-2022 18:31-0400 Body mass index (BMI) [Ratio] 22.6 kg/m2 Dr. Robert Patel Work Phone: [facility] [place] Work Phone: 05-09-2022 18:31-0400 Body weight 59.[address] Robert Patel Work Phone: [facility] [place] Work Phone: 05-08-2022 20:00-0400 Heart rate 69 /min Dr. Robert Patel Work Phone: [facility] [place] Work Phone: 05-08-2022 20:00-0400 Respiratory rate 18 /min Dr. Robert Patel Work Phone: [facility] [place] Work Phone: 05-08-2022 20:00-0400 SaO2% (BldA) [Mass fraction] 96 % Dr. Robert Patel Work Phone: [facility] [place] Work Phone: 05-08-2022 18:07-0400 Diastolic blood pressure 90 mm[Hg] Dr. Robert Patel Work Phone: [facility] [place] Work Phone: 05-08-2022 18:07-0400 Systolic blood pressure 168 mm[Hg] Dr. Robert Patel Work Phone: [facility] [place] Work Phone: 05-08-2022 17:04-0400 Body height 162.[address] Robert Patel Work Phone: [facility] [place] Work Phone: 05-08-2022 17:04-0400 Body mass index (BMI) [Ratio] 22.9 kg/m2 Dr. Robert Patel Work Phone: [facility] [place] Work Phone: 05-08-2022 17:04-0400 Body temperature 96.6 [degF] Dr. Robert Patel Work Phone: [facility] [place] Work Phone: 05-08-2022 17:04-0400 Body weight 60.[address] Robert Patel Work Phone: [facility] [place] Work Phone: 05-06-2022 10:41-0400 Body mass index (BMI) [Ratio] 22.8 kg/m2 Dr. Robert Patel Work Phone: [facility] [place] Work Phone: 05-06-2022 10:41-0400 Body temperature 97.7 [degF] Dr. Robert Patel Work Phone: [facility] [place] Work Phone: 05-06-2022 10:41-0400 Body weight 60.[address] Robert Patel Work Phone: [facility] [place] Work Phone: 05-06-2022 10:41-0400 Diastolic blood pressure 80 mm[Hg] Dr. Robert Patel Work Phone: [facility] [place] Work Phone: 05-06-2022 10:41-0400 Heart rate 60 /min Dr. Robert Patel Work Phone: [facility] [place] Work Phone: 05-06-2022 10:41-0400 Respiratory rate 16 /min Dr. Robert Patel Work Phone: [facility] [place] Work Phone: 05-06-2022 10:41-0400 SaO2% (BldA) [Mass fraction] 96 % Dr. Robert Patel Work Phone: [facility] [place] Work Phone: 05-06-2022 10:41-0400 Systolic blood pressure 144 mm[Hg] Dr. Robert Patel Work Phone: [facility] [place] Work Phone: 03-29-2022 13:19-0400 Body height 162.[address] Robert Patel Work Phone: [facility] [place] Work Phone: 03-29-2022 13:19-0400 Body temperature 98.6 [degF] Dr. Robert Patel Work Phone: [facility] [place] Work Phone: 03-29-2022 13:19-0400 Diastolic blood pressure 77 mm[Hg] Dr. Robert Patel Work Phone: [facility] [place] Work Phone: 03-29-2022 13:19-0400 Heart rate 89 /min Dr. Robert Patel Work Phone: [facility] [place] Work Phone: 03-29-2022 13:19-0400 Respiratory rate 16 /min Dr. Robert Patel Work Phone: [facility] [place] Work Phone: 03-29-2022 13:19-0400 SaO2% (BldA) [Mass fraction] 97 % Dr. Robert Patel Work Phone: [facility] [place] Work Phone: 03-29-2022 13:19-0400 Systolic blood pressure 127 mm[Hg] Dr. Robert Patel Work Phone: [facility] [place] Work Phone: 03-04-2022 13:19-0400 Body height 162.6 cm Luis Miguel Hinkle MD Work Phone: [facility] 03-04-2022 13:19-0400 Body mass index (BMI) [Ratio] 22.73 kg/m2 Luis Miguel Hinkle MD Work Phone: [facility] 03-04-2022 13:19-0400 Body temperature 97.11 [degF] Luis Miguel Hinkle MD Work Phone: [facility] 03-04-2022 13:19-0400 Body weight 60.06 kg Luis Miguel Hinkle MD Work Phone: [facility] 03-04-2022 13:19-0400 Diastolic blood pressure 70 mm[Hg] Luis Miguel Hinkle MD Work Phone: [facility] Comment on above: left 140/70 03-04-2022 13:19-0400 Heart rate 86 /min Luis Miguel Hinkle MD Work Phone: [facility] 03-04-2022 13:19-0400 Respiratory rate 16 /min Luis Miguel Hinkle MD Work Phone: [facility] 03-04-2022 13:19-0400 SaO2% (BldA) [Mass fraction] 98 % Luis Miguel Hinkle MD Work Phone: [facility] 03-04-2022 13:19-0400 Systolic blood pressure 142 mm[Hg] Luis Miguel Hinkle MD Work Phone: [facility] Comment on above: left 140/70 02-28-2022 20:30-0400 Diastolic blood pressure 70 mm[Hg] Dr. Robert Patel Work Phone: [facility] [place] Work Phone: 02-28-2022 20:30-0400 Systolic blood pressure 110 mm[Hg] Dr. Robert Patel Work Phone: [facility] [place] Work Phone: 02-28-2022 14:28-0400 Body mass index (BMI) [Ratio] 22.6 kg/m2 Dr. Robert Patel Work Phone: [facility] [place] Work Phone: 02-28-2022 14:28-0400 Body temperature 98.4 [degF] Dr. Robert Patel Work Phone: [facility] [place] Work Phone: 02-28-2022 14:28-0400 Body weight 59.[address] Robert Patel Work Phone: [facility] [place] Work Phone: 02-28-2022 14:28-0400 Heart rate 92 /min Dr. Robert Patel Work Phone: [facility] [place] Work Phone: 02-28-2022 14:28-0400 Respiratory rate 18 /min Dr. Robert Patel Work Phone: [facility] [place] Work Phone: 02-28-2022 14:28-0400 SaO2% (BldA) [Mass fraction] 99 % Dr. Robert Patel Work Phone: [facility] [place] Work Phone: 02-21-2022 11:05-0400 Body temperature 97.59 [degF] Andreea Vernon MD Work Phone: 9(553)876-849191 [address] 02-21-2022 11:05-0400 Diastolic blood pressure 79 mm[Hg] Andreea Vernon MD Work Phone: 4(558)372-722691 [address] 02-21-2022 11:05-0400 Heart rate 81 /min Andreea Vernon MD Work Phone: 3(659)724-820257 [place] [address] 02-21-2022 11:05-0400 Respiratory rate 16 /min Andreea Vernon MD Work Phone: 3(005)649-237257 [place] [address] 02-21-2022 11:05-0400 SaO2% (BldA) [Mass fraction] 96 % Andreea Vernon MD Work Phone: 3(779)827-216057 [place] [address] 02-21-2022 11:05-0400 Systolic blood pressure 138 mm[Hg] Andreea Vernon MD Work Phone: 8(894)737-298757 [place] [address] 02-21-2022 04:28-0400 Body height 162.6 cm Andreea Vernon MD Work Phone: 8(528)624-744091 [address] 02-21-2022 04:28-0400 Body mass index (BMI) [Ratio] 21.35 kg/m2 Andreea Vernon MD Work Phone: 2(695)716-517491 [address] 02-21-2022 04:28-0400 Body weight 56.43 kg Andreea Vernon MD Work Phone: 1(043)004-642391 [address] 02-15-2022 10:02-0400 Respiratory rate 14 /min Dr. Robert Patel Work Phone: [facility] [place] Work Phone: 02-15-2022 06:44-0400 Body height 162.[address] Robert Patel Work Phone: [facility] [place] Work Phone: 02-15-2022 06:44-0400 Body mass index (BMI) [Ratio] 24.1 kg/m2 Dr. Robert Patel Work Phone: [facility] [place] Work Phone: 02-15-2022 06:44-0400 Body temperature 97.7 [degF] Dr. Robert Patel Work Phone: [facility] [place] Work Phone: 02-15-2022 06:44-0400 Body weight 63.[address] Robert Patel Work Phone: [facility] [place] Work Phone: 02-15-2022 06:44-0400 Diastolic blood pressure 74 mm[Hg] Dr. Robert Patel Work Phone: [facility] [place] Work Phone: 02-15-2022 06:44-0400 Heart rate 87 /min Dr. Robert Patel Work Phone: [facility] [place] Work Phone: 02-15-2022 06:44-0400 SaO2% (BldA) [Mass fraction] 99 % Dr. Robert Patel Work Phone: [facility] [place] Work Phone: 02-15-2022 06:44-0400 Systolic blood pressure 141 mm[Hg] Dr. Robert Patel Work Phone: [facility] [place] Work Phone: 02-14-2022 13:45-0400 Diastolic blood pressure 85 mm[Hg] Bettina Delgado RN [facility] 02-14-2022 13:45-0400 Heart rate 106 /min Bettina Delgado RN [facility] 02-14-2022 13:45-0400 Systolic blood pressure 159 mm[Hg] Bettina Delgado RN [facility] 02-14-2022 10:31-0400 Body temperature 98.1 [degF] Bettina Delgado RN [facility] 02-14-2022 10:31-0400 Body weight 60.69 kg Bettina Delgado RN [facility] 02-14-2022 10:31-0400 Respiratory rate 16 /min Bettina Delgado RN [facility] 02-14-2022 10:31-0400 SaO2% (BldA) [Mass fraction] 98 % Bettina Delgado RN [facility] 01-28-2022 14:05-0400 Body mass index (BMI) [Ratio] 23.2 kg/m2 Dr. Robert Patel Work Phone: [facility] [place] Work Phone: 01-28-2022 14:05-0400 Body temperature 94.5 [degF] Dr. Robert Patel Work Phone: [facility] [place] Work Phone: 01-28-2022 14:05-0400 Body weight 61.[address] Robert Patel Work Phone: [facility] [place] Work Phone: 01-28-2022 14:05-0400 Diastolic blood pressure 80 mm[Hg] Dr. Robert Patel Work Phone: [facility] [place] Work Phone: 01-28-2022 14:05-0400 Heart rate 59 /min Dr. Robert Patel Work Phone: [facility] [place] Work Phone: 01-28-2022 14:05-0400 Respiratory rate 16 /min Dr. Robert Patel Work Phone: [facility] [place] Work Phone: 01-28-2022 14:05-0400 SaO2% (BldA) [Mass fraction] 100 % Dr. Robert Patel Work Phone: [facility] [place] Work Phone: 01-28-2022 14:05-0400 Systolic blood pressure 130 mm[Hg] Dr. Robert Patel Work Phone: [facility] [place] Work Phone: 01-24-2022 14:12-0400 Body mass index (BMI) [Ratio] 23.1 kg/m2 Dr. Robert Patel Work Phone: [facility] [place] Work Phone: 01-24-2022 14:12-0400 Body temperature 97.2 [degF] Dr. Robert Patel Work Phone: [facility] [place] Work Phone: 01-24-2022 14:12-0400 Body weight 61.[address] Robert Patel Work Phone: [facility] [place] Work Phone: 01-24-2022 14:12-0400 Diastolic blood pressure 87 mm[Hg] Dr. Robert Patel Work Phone: [facility] [place] Work Phone: 01-24-2022 14:12-0400 Heart rate 98 /min Dr. Robert aPtel Work Phone: [facility] [place] Work Phone: 01-24-2022 14:12-0400 Respiratory rate 16 /min Dr. Robert Patel Work Phone: [facility] [place] Work Phone: 01-24-2022 14:12-0400 SaO2% (BldA) [Mass fraction] 97 % Dr. Robert Patel Work Phone: [facility] [place] Work Phone: 01-24-2022 14:12-0400 Systolic blood pressure 138 mm[Hg] Dr. Robert Patel Work Phone: [facility] [place] Work Phone: 01-08-2022 11:40-0400 Body height 162.[address] Robert Patel Work Phone: [facility] [place] Work Phone: 01-08-2022 11:40-0400 Body weight 61.[address] Robert Patel Work Phone: [facility] [place] Work Phone: 01-08-2022 11:40-0400 Heart rate 79 /min Dr. Robert Patel Work Phone: [facility] [place] Work Phone: 01-08-2022 11:40-0400 SaO2% (BldA) [Mass fraction] 98 % Dr. Robert Patel Work Phone: [facility] [place] Work Phone: 01-03-2022 14:20-0400 Body temperature 97.5 [degF] Osmin Mae MD Work Phone: [facility] 01-03-2022 14:20-0400 Body weight 61.33 kg Osmin Mae MD Work Phone: [facility] 01-03-2022 14:20-0400 Diastolic blood pressure 67 mm[Hg] Osmin Mae MD Work Phone: [facility] 01-03-2022 14:20-0400 Heart rate 75 /min Osmin Mae MD Work Phone: [facility] 01-03-2022 14:20-0400 Respiratory rate 16 /min Osmin Mae MD Work Phone: [facility] 01-03-2022 14:20-0400 SaO2% (BldA) [Mass fraction] 100 % Osmin Mae MD Work Phone: [facility] 01-03-2022 14:20-0400 Systolic blood pressure 131 mm[Hg] Osmin Mae MD Work Phone: [facility] 12-25-2021 10:55-0400 Body mass index (BMI) [Ratio] 23.1 kg/m2 Dr. Robert Patel Work Phone: [facility] [place] Work Phone: 12-25-2021 10:55-0400 Body temperature 97.2 [degF] Dr. Robert Patel Work Phone: [facility] [place] Work Phone: 12-25-2021 10:55-0400 Body weight 61.[address] Robert Patel Work Phone: [facility] [place] Work Phone: 12-25-2021 10:55-0400 Diastolic blood pressure 86 mm[Hg] Dr. Robert Patel Work Phone: [facility] [place] Work Phone: 12-25-2021 10:55-0400 Heart rate 69 /min Dr. Robert Patel Work Phone: [facility] [place] Work Phone: 12-25-2021 10:55-0400 Respiratory rate 16 /min Dr. Robert Patel Work Phone: [facility] [place] Work Phone: 12-25-2021 10:55-0400 SaO2% (BldA) [Mass fraction] 97 % Dr. Robert Patel Work Phone: [facility] [place] Work Phone: 12-25-2021 10:55-0400 Systolic blood pressure 126 mm[Hg] Dr. Robert Patel Work Phone: [facility] [place] Work Phone: 12-25-2021 10:55-0400 Body mass index (BMI) [Ratio] 23.1 kg/m2 Dr. Robert Patel Work Phone: [facility] [place] Work Phone: 12-25-2021 10:55-0400 Body temperature 97.2 [degF] Dr. Robert Patel Work Phone: [facility] [place] Work Phone: 12-25-2021 10:55-0400 Body weight 61.[address] Robert Patel Work Phone: [facility] [place] Work Phone: 12-25-2021 10:55-0400 Diastolic blood pressure 86 mm[Hg] Dr. Robert Patel Work Phone: [facility] [place] Work Phone: 12-25-2021 10:55-0400 Heart rate 69 /min Dr. Robert Patel Work Phone: [facility] [place] Work Phone: 12-25-2021 10:55-0400 Respiratory rate 16 /min Dr. Robert Patel Work Phone: [facility] [place] Work Phone: 12-25-2021 10:55-0400 SaO2% (BldA) [Mass fraction] 97 % Dr. Robert Patel Work Phone: [facility] [place] Work Phone: 12-25-2021 10:55-0400 Systolic blood pressure 126 mm[Hg] Dr. Robert Patel Work Phone: [facility] [place] Work Phone: 12-14-2021 11:53-0400 Body mass index (BMI) [Ratio] 23.5 kg/m2 Dr. Robert Patel Work Phone: [facility] [place] Work Phone: 12-14-2021 11:53-0400 Body weight 62.[address] Robert Patel Work Phone: [facility] [place] Work Phone: 12-14-2021 11:53-0400 Diastolic blood pressure 72 mm[Hg] Dr. Robert Patel Work Phone: [facility] [place] Work Phone: 12-14-2021 11:53-0400 Heart rate 80 /min Dr. Robert Patel Work Phone: [facility] [place] Work Phone: 12-14-2021 11:53-0400 Respiratory rate 16 /min Dr. Robert Patel Work Phone: [facility] [place] Work Phone: 12-14-2021 11:53-0400 Systolic blood pressure 120 mm[Hg] Dr. Robert Patel Work Phone: [facility] [place] Work Phone: 12-14-2021 11:53-0400 Body mass index (BMI) [Ratio] 23.5 kg/m2 Dr. Robert Patel Work Phone: [facility] [place] Work Phone: 12-14-2021 11:53-0400 Body weight 62.[address] Robert Patel Work Phone: [facility] [place] Work Phone: 12-14-2021 11:53-0400 Diastolic blood pressure 72 mm[Hg] Dr. Robert Patel Work Phone: [facility] [place] Work Phone: 12-14-2021 11:53-0400 Heart rate 80 /min Dr. Robert Patel Work Phone: [facility] [place] Work Phone: 12-14-2021 11:53-0400 Respiratory rate 16 /min Dr. Robert Patel Work Phone: [facility] [place] Work Phone: 12-14-2021 11:53-0400 Systolic blood pressure 120 mm[Hg] Dr. Robert Patel Work Phone: [facility] [place] Work Phone: 10-31-2021 13:19-0400 Body temperature 97.9 [degF] Dr. Robert Patel Work Phone: [facility] [place] Work Phone: 10-31-2021 13:19-0400 Diastolic blood pressure 70 mm[Hg] Dr. Robert Patel Work Phone: [facility] [place] Work Phone: 10-31-2021 13:19-0400 Heart rate 81 /min Dr. Robert Patel Work Phone: [facility] [place] Work Phone: 10-31-2021 13:19-0400 Respiratory rate 18 /min Dr. Robert Patel Work Phone: [facility] [place] Work Phone: 10-31-2021 13:19-0400 SaO2% (BldA) [Mass fraction] 95 % Dr. Robert Patel Work Phone: [facility] [place] Work Phone: 10-31-2021 13:19-0400 Systolic blood pressure 137 mm[Hg] Dr. Robert Patel Work Phone: [facility] [place] Work Phone: 10-30-2021 15:53-0400 Body height 162.[address] Robert Patel Work Phone: [facility] [place] Work Phone: 10-30-2021 15:53-0400 Body mass index (BMI) [Ratio] 23 kg/m2 Dr. Robert Patel Work Phone: [facility] [place] Work Phone: 10-30-2021 15:53-0400 Body weight 60.[address] Robert Patel Work Phone: [facility] [place] Work Phone: 10-30-2021 15:10-0400 Body temperature 97.2 [degF] [facility] Work Phone: 10-30-2021 15:10-0400 Diastolic blood pressure 92 mm[Hg] [facility] [place] Work Phone: 10-30-2021 15:10-0400 Heart rate 72 /min [facility] Work Phone: 10-30-2021 15:10-0400 Respiratory rate 23 /min [facility] Work Phone: 10-30-2021 15:10-0400 SaO2% (BldA) [Mass fraction] 100 % [facility] [place] Work Phone: 10-30-2021 15:10-0400 Systolic blood pressure 160 mm[Hg] [facility] [place] Work Phone: 10-30-2021 12:01-0400 Body height 162.56 cm [facility] Work Phone: 10-30-2021 12:01-0400 Body mass index (BMI) [Ratio] 23.3 kg/m2 [facility] [place] Work Phone: 10-30-2021 12:01-0400 Body weight 61.68 kg [facility] Work Phone: 09-28-2021 13:15-0500 Body temperature 97.6 [degF] [facility] Work Phone: 09-28-2021 13:15-0500 Diastolic blood pressure 81 mm[Hg] [facility] [place] Work Phone: 09-28-2021 13:15-0500 Heart rate 87 /min [facility] Work Phone: 09-28-2021 13:15-0500 Respiratory rate 16 /min [facility] Work Phone: 09-28-2021 13:15-0500 Systolic blood pressure 131 mm[Hg] [facility] [place] Work Phone: Encounters Encounter Date Encounter Type Care Provider Facility Start: 03-08-2025 ambulatory Haroon Luke lity:[facility] [place] Start: 03-01-2025 End: 03-01-[address] Roberto Carlos Lima MD -[facility] Work Phone: Start: 03-01-2025 End: 03-01-[address] Haroon Patel MD Work Phone: -[facility] Start: 02-24-2025 ambulatory OSMIN MAE Facility:[facility] Start: 02-24-2025 ambulatory OSMIN MARIA CRESTPROSPER Facility:[facility] Start: 02-21-2025 ambulatory HAROON Humphrey cility:[facility] Start: 02-09-2025 End: 02-14-2025 Telephone encounter Lanette Bahena [facility] Division of Hematolo gy & Oncology Comment on above: Other Start: 01-24-2025 End: 01-24-[address] Roberto Carlos Lima MD -[facility] Work Phone: Start: 01-24-2025 End: 01-24-[address] Haroon Patel MD Work Phone: [facility] Work Phone: Start: 01-05-2025 End: 01-05-[address] HAROON PATEL MD Facility:[facility] Start: 01-05-2025 End: 01-05-2025 Patient encounter procedure ANALILIA OMER MD [facility] Start: 01-03-2025 End: 01-03-2025 Telephone encounter Sherley He MD Work Phone: [facility] Comment on above: [employer] Start: 12-31-2024 End: 12-31-[address] HAROON PATEL MD Facility:[facility] Start: 12-31-2024 End: 12-31-2024 Patient encounter procedure ANALILIA OMER MD [facility] Start: 12-23-2024 End: 12-23-[address] Roberto Carlos Lima MD -[facility] Work Phone: Start: 12-23-2024 End: 12-23-2024 ambulatory Roberto Carlos Lima Facility:[facility] Start: 11-30-2024 End: 11-30-[address] Haroon Patel MD -[facility] [place] Work Phone: Start: 11-30-2024 End: 11-30-2024 ambulatory Haroon Patel Facility:[facility] [place] Start: 09-27-2024 End: 09-27-[address] Dorian Mckeon MD -[facility] Work Phone: Start: 09-27-2024 End: 09-27-2024 ambulatory Haroon Patel Facility:[facility] Start: 09-10-2024 End: 09-10-2024 Office outpatient visit 25 minutes Sherley He MD Work Phone: [facility] Comment on above: Persistent atrial fi brillation (HCC) (Primary Dx); At risk for stroke; At risk for bleeding associated with anticoagulants; Iron deficiency anemia due to chronic blood loss; Von Willebrand's disease (HCC); Epistaxis Start: 09-10-2024 End: 09-10-2024 ambulatory SHERLEY HE Facility[facility] Start: 07-09-2024 End: 07-09-2024 ambulatory Haroon Patel Facility:[facility] Start: 07-05-2024 End: 07-05-2024 ambulatory Haroon Patel Facility:[facility] Start: 06-23-2024 End: 06-23-2024 ambulatory Haroon Patel Facility:[facility] Start: 06-21-2024 ambulatory Haroon Patel Faci lity:[facility] Start: 06-21-2024 End: 06-21-2024 ambulatory Marlene QUEZADA Facility:[facility] [place] Start: 06-03-2024 End: 06-03-20[facility] [place] Start: 05-24-2024 End: 05-24-2024 ambulatory Haroon Patel Facility:[facility] Start: 05-20-2024 End: 05-20-2024 ambulatory Haroon Patel Facility:[facility] Start: 05-18-2024 End: 05-18-2024 ambulatory Haroon Patel Facility:[facility] [place] Start: 04-22-2024 End: 04-22-2024 ambulatory Haroon Patel Facility:[facility] Start: 04-13-2024 End: 04-13-2024 ambulatory Haroon Patel Facility:[facility] [place] Start: 03-26-2024 End: 03-26-2024 ambulatory Haroon Patel Facility:[facility] Start: 03-18-2024 ambulatory Inder Maria Teresa Facility :[facility] [place] Start: 09-29-2023 End: 09-29-[address] Robert Patel Work Phone: [facility] [place] Work Phone: Start: 09-29-2023 End: 09-29-[address] [facility] Work [facility]: Start: 09-26-2023 End: 09-26-[address] Robert Patel Work Phone: [facility] Work Phone: Start: 09-25-2023 End: 09-25-[address] Robert Patel Work Phone: [facility] [place] Work Phone: Start: 09-25-2023 End: 09-25-[address] Robert Patel Work Phone: [facility] [place] [place] Work Phone: Start: 07-03-2023 End: 07-03-[address] Robert Patel Work Phone: [facility] [place] Work Phone: Start: 07-03-2023 End: 07-03-[address] Robert Ptael Work Phone: [facility] Work Phone: Start: 03-28-2023 End: 03-28-[address] Robert Patel Work Phone: [facility] [place] Work Phone: Start: 03-28-2023 End: 03-28-[address] Robert Patel Work Phone: [facility] [place]-Medical Out Work Phone: Start: 03-06-2023 End: 03-06-[address] Robert Patel Work Phone: [facility] [place] Work Phone: Start: 03-06-2023 End: 03-06-[address] Robert Patel Work Phone: [facility] [place]-Outpatient Bone Densitometry Work Phone: Start: 02-25-2023 End: 02-25-[address] Robert Patel Work Phone: [facility] Work Phone: Start: 02-17-2023 End: 02-17-[address] Robert Patel Work Phone: [facility] [place] Work Phone: Start: 02-17-2023 End: 02-17-[address] Robert Patel Work Phone: [facility] [place] Work Phone: Start: 01-30-2023 End: 01-30-2023 Patient encounter procedure Dr. Robert Patel Work Phone: [facility] Neurology Work Phone: Start: 01-27-2023 End: 01-27-[address] Robert Patel Work Phone: [facility] Endocrinology Work Phone: Start: 01-08-2023 End: 01-08-2023 [facility] Start: 01-07-2023 End: 01-07-2023 Emergency department patient visit Dr. Robert Patel Work Phone: [facility]-Emergency Department Start: 12-31-2022 End: 12-31-[address] Robert Patel Work Phone: [facility] Neurology Start: 12-06-2022 End: 12-06-[address] Robert Patel Work Phone: [facility] Work Phone: Start: 12-06-2022 End: 12-06-[address] Robert Patel Work Phone: [facility] Start: 12-03-2022 End: 12-03-[address] Robert Patel Work Phone: [facility] Work Phone: Start: 12-03-2022 End: 12-03-[address] Robert Patel Work Phone: [facility] Start: 11-28-2022 End: 11-28-[address] Robert Patel Work Phone: [facility] Work Phone: Start: 11-28-2022 End: 11-28-[address] Robert Patel Work Phone: [facility] Start: 11-27-2022 End: 11-27-[address] Robert Patel Work Phone: [facility] Neurology Start: 10-28-2022 End: 10-28-[address] Robert Patel Work Phone: [facility] Neurology Start: 10-17-2022 End: 10-17-[address] Robert Patel Work Phone: [facility] Work Phone: Start: 10-17-2022 End: 10-17-[address] Robert Patel Work Phone: [facility] Start: 10-07-2022 End: 10-07-[address] Robert Patel Work Phone: [facility] Work Phone: Start: 10-07-2022 End: 10-07-[address] Robert Patel Work Phone: [facility] Start: 10-01-2022 End: 10-01-[address] Robert Patel Work Phone: [facility] Start: 09-27-2022 End: 09-27-[address] Robert Patel Work Phone: [facility] Work Phone: Start: 09-27-2022 End: 09-27-[address] Robert Patel Work Phone: [facility]-Medical Out Start: 09-25-2022 End: 09-25-[address] Robert Patel Work Phone: [facility] Neurology Start: 08-19-2022 End: 08-19-2022 Patient encounter procedure Sherley He MD Work Phone: [facility] Cardiology [place] Comment on above: Persistent atrial fi brillation (HCC) (Primary Dx); At risk for stroke; At risk for bleeding associated with anticoagulants; Von Willebrand's disease Start: 08-06-2022 End: 08-06-[address] Robert Patel Work Phone: [facility] Start: 08-01-2022 End: 08-01-[address] Robert Patel Work Phone: [facility] Work Phone: Start: 08-01-2022 End: 08-01-[address] Robert Patel Work Phone: [facility] Start: 07-09-2022 End: 07-09-[address] Robert Patel Work Phone: [facility] Neurology Start: 06-05-2022 End: 06-05-[address] Robert Patel Work Phone: [facility] Work Phone: Start: 06-05-2022 End: 06-05-[address] Robert Patel Work Phone: [facility] Start: 06-04-2022 End: 06-04-[address] Robert Patel Work Phone: [facility] Neurology Start: 05-15-2022 End: 05-15-[address] Robert Patel Work Phone: [facility] Start: 05-13-2022 End: 05-13-[address] Robert Patel Work Phone: [facility] Work Phone: Start: 05-13-2022 End: 05-13-[address] Robert Patel Work Phone: [facility] Start: 05-09-2022 End: 05-09-2022 Emergency department patient visit Dr. Robert Patel Work Phone: [facility]-Emergency Department Start: 05-08-2022 End: 05-08-2022 Emergency department patient visit Dr. Robert Patel Work Phone: [facility]-Emergency Department Start: 05-06-2022 End: 05-06-[address] Robert Patel Work Phone: [facility] Neurology Start: 04-04-2022 End: 04-04-[address] Robert Patel Work Phone: [facility] Neurology Start: 03-29-2022 End: 03-29-[address] Robert Patel Work Phone: [facility] Work Phone: Start: 03-29-2022 End: 03-29-[address] Robert Patel Work Phone: [facility]-Medical Out Start: 03-14-2022 Telephone encounter Flavio Babin RN [facility] Comment on above: Results (Labs and ad vice ) Start: 03-12-2022 End: 03-12-[address] Robert Patel Work Phone: [facility] Work Phone: Start: 03-12-2022 End: 03-12-[address] Robert Patel Work Phone: [facility] Start: 03-08-2022 Telephone encounter Flavio Babin RN [facility] Comment on above: Orders (Chem 6) Start: 03-08-2022 End: 03-08-[address] Robert Patel Work Phone: [facility] Start: 03-04-2022 End: 03-04-2022 Office consultation new/estab patient 60 min Luis Miguel Hinkle MD Work Phone: [facility] Comment on above: Persistent atrial fi brillation (Primary Dx); Von Willebrand disease; Essential hypertension, benign; Dyspnea, unspecified type Start: 02-28-2022 End: 02-28-[address] Robert Patel Work Phone: [facility] Neurology Start: 02-20-2022 End: 02-21-2022 Emergency department patient visit Andreea Vernon MD Work Phone: [id number] Comment on above: Epistaxis Start: 02-19-2022 Non-patient / Non-visit Dr. Anisa Patel Work Phone: [facility] Start: 02-19-2022 End: 02-19-[address] Robert Patel Work Phone: [facility]-Cardiovascular Services Start: 02-15-2022 End: 02-15-2022 Emergency department patient visit Dr. 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 Robert Patel Work Phone: [facility] Endocrinology Start: 01-24-2022 End: 01-24-[address] Robert Patel Work Phone: [facility]-Pulmonary Medicine [facility] Start: 01-08-2022 Non-patient / Non-visit Dr. Anisa Patel Work Phone: [facility] Start: 01-08-2022 End: 01-08-[address] Robert Patel Work Phone: [facility]-Pulmonary Services/Neurology Start: 01-03-2022 End: 01-29-2022 Office outpatient visit 40 minutes Osmin Mae MD Work Phone: Division of Hematology & Oncology Comment on above: Hemorrhagic diathesi s (Primary Dx); Encounter for screening for other viral diseases Start: 12-25-2021 End: 12-25-[address] [facility] Start: 12-14-2021 End: 12-14-[address] Robert Patel Work Phone: [facility] Start: 11-13-2021 Non-patient / Non-visit Dr. Anisa Patel Work Phone: [facility] Start: 11-13-2021 End: 11-13-[address] Robert Patel Work Phone: [facility]-Pulmonary Services/Neurology Start: 10-31-2021 Non-patient / Non-visit Dr. Anisa Patel Work Phone: [facility] Start: 10-30-2021 Non-patient / Non-visit Dr. Anisa Patel Work Phone: [facility] Inpatient Physicians Start: 10-30-2021 End: 10-31-2021 Evaluation and management of inpatient [facility]-Progressive Care Unit Start: 09-28-2021 End: 09-28-2021 Patient encounter procedure [facility]-Medical Out Start: 09-24-2021 End: 09-24-2021 Patient encounter procedure [facility] Start: 09-20-2021 End: 09-20-2021 Patient encounter procedure [facility] Procedures Date Procedure Procedure Detail Performing Clinician Start: 11-30-2024 Vitamin D, 25-hydrox y measurement Dr. Haroon Patel MD Work Phone: Comment on above: Vitamin D StatusDefi ciency: <20 ng/mL (50nmol/L)Insufficiency: 20-30 ng/mL (50-75 nmol/L)Sufficiency: 30-100 ng/mL (75-250 nmol/L)Toxicity: >100 ng/mL (>250 nmol/L) Start: 09-10-2024 Ecg routine ecg w/le ast 12 lds w/i&r Sherley He MD Work Phone: Start: 09-29-2023 Measurement of occul t blood in gastric fluid specimen Dr. Robert Patel Work Phone: Start: 09-29-2023 Measurement of occul t blood in stool specimen using immunoassay Dr. Robert Patel Work Phone: Start: 09-29-[address] Robert Patel Work Phone: Start: 09-25-2023 Diagnostic radiograp hy of abdomen, decubitus and erect Dr. Robert Patel Work Phone: Start: 03-06-2023 Dual energy X-ray absorptiometry Dr. Robert Patel Work Phone: Start: 03-06-2023 Screening mammography D neville Patel Work Phone: Start: 08-19-2022 Ecg routine ecg w/le ast 12 lds w/i&r Sherley He MD Work Phone: Start: 08-06-2022 Plain chest X-ray Dr. Morris Patel Work Phone: Start: 05-09-2022 Plain chest X-ray Dr. Morris Patel Work Phone: Start: 05-08-2022 Plain chest X-ray Dr. Morris Patel Work Phone: Start: 05-08-2022 CT of head without contrast Dr. Robert Patel Work Phone: Start: 04-29-2022 Lipid 1996 panel - S cam or Plasma Sherley He MD Work Phone: Start: 02-21-2022 Thromboplastin time partial plasma/whole blood Adele Schaumleffel [employer]N SHELLER OPERATOR-[facility] Work Phone: Start: 02-21-2022 Assay of troponin quantitative Alanna Ramirez [facility] Work Phone: Start: 02-21-2022 CONTINUOUS CARDIAC MONITORING STRIP Other Other Start: 02-20-2022 CBC AND ELECTRONIC DIFF Param Elena MD Work Phone: Start: 02-20-2022 Complete blood count with white cell differential, automated Param Elena MD Work Phone: Start: 02-20-2022 LT BLUE TOP TUBE Param Elena MD Work Phone: Start: 02-20-2022 Prothrombin time Param Elena MD Work Phone: Start: 02-15-2022 Plain x-ray of wrist Dr Nadine Patel Work Phone: Start: 02-15-2022 X-ray of both feet Dr. Robert Patel Work Phone: Start: 02-15-[address] Ward Patel Work Phone: Start: 02-15-2022 CT of head without contrast Dr. Robert Patel Work Phone: Start: 01-03-2022 Antibody screen Osmin Mae MD Work Phone: Start: 01-03-2022 Assay of ferritin Heavenly as Yulia Mae MD Work Phone: Start: 01-03-2022 CBC AND ELECTRONIC DIFF Osmin Mae MD Work Phone: Start: 01-03-2022 Complete blood count with white cell differential, automated Osmin Mae MD Work Phone: Start: 01-03-2022 Hepatitis b surf ant ibody hbsab Osmin Mae MD Work Phone: Start: 01-03-2022 Iaad ia hepatitis b surface antigen Osmin Mae MD Work Phone: Start: 01-03-2022 VON WILLEBRAND BATTE RY AGN + FACTOR VIII Osmin Mae MD Work Phone: Start: 10-31-2021 Cardiovascular stres s test using pharmacologic stress agent Dr. Robert Patel Work Phone: Start: 10-30-2021 Plain chest X-ray Bacteria identified in Urine by Culture Dr. Robert Patel Work Phone: Clostridium difficil e detection Dr. Robert Patel Work Phone: Gallbladder structur e (body structure) ANALILIA OMER MD Comment on above: Removal Hysterectomy ANALILIA OMER MD Lactoferrin measurement Dr. Robert Patel Work Phone: Ova OR parasites identification Dr. Robert Patel Work Phone: Urine culture Dr. Robert Patel Work Phone: Plan of Treatment Date Care Activity Detail Author Start: 02-17-2033 Tetanus vaccination TETANUS [facility] Start: 02-17-2033 Urine microalbumin profile DTaP,Tdap,Td Vaccine (2 - Td or Tdap) [facility] Start: 04-29-2027 Lipid panel Lipid Screening [facility] Start: 10-25-2026 RSV VACCINE (1 - 1-d ose 75+ series) RSV VACCINE (1 - 1-dose 75+ series) [facility] Start: 05-01-2025 Diabetes Screening Diabetes Screenin g [facility] Start: 04-04-2025 Influenza vaccination INFLUENZA VACC INE (#1) [facility] Start: 02-21-2025 End: 02-21-2025 Telemedicine consultation with patient 02/21/2025 11:30 AM EDT Telemedicine Division of Hematology & Oncology [address] [place] [address] [address] [place] [address] SprAngela velázquez PA-C [address] [place] [address] [place] [id number] Division of Hematology & Oncology Start: 08-04-2024 Advance Directive Discussion Advance Directive Discussion [facility] Start: 04-04-2024 Covid-19 Vaccine ( season) Covid-19 Vaccine () [facility] Start: 09-29-2023 Procedure [facility] Start: 05-01-2023 Potassium [Moles/vol ume] in Serum or Plasma POTASSIUM [facility] Start: 10-07-2022 Evaluation of diagno stic study results [facility] Start: 10-01-2022 Elastase, pancreatic (el-1), fecal; quantitative [facility] Start: 10-01-2022 Procedure [facility] Start: 08-20-2022 End: 08-20-2022 Patient encounter procedure 08/20/2022 Office Visit Hematology Kylah Nazraio, CORN SHELLER OPERATOR-ASSOCIATE [employer]CH[employer]ISE [employer]ANNER [address] [place] [id number] Division of Hematology & Oncology Start: 08-04-2022 ADVANCE DIRECTIVE DISCUSSION ADVANCE DIRECTIVE DISCUSSION [facility] Start: 08-04-2022 DEPRESSION ASSESSMENT DEPRESSION ASS ESSMENT [facility] Start: 06-10-2022 End: 06-10-2022 Patient encounter procedure 06/10/2022 Office Visit Cardiovascular Medicine Luis Miguel Hinkle MD [address] [place] [address] Heart and Vascular Outpatient Care [facility] Start: 05-09-2022 [facility] Work Phone: Start: 04-04-2022 Influenza vaccination INFLUENZA VACC INE (#1) [facility] Start: 03-04-2022 End: 03-04-2022 Patient encounter procedure 03/04/2022 Office Visit Cardiovascular Medicine Luis Miguel Hinkle MD [address] [place] [address] Heart [facility] Vascular Outpatient [facility] Start: 01-29-2022 End: 01-29-2023 FACTOR VIII INHIBITOR FACTOR VIII INHIBITOR Lab Routine Hemorrhagic diathesis Expected: 01/29/2022, Expires: 01/29/2023 [facility] Comment on above: Expected: 01/29/2022 , Expires: 01/29/2023 Start: 01-29-2022 End: 01-29-2023 FACTOR XI ACTIVITY FACTOR XI ACTIVITY Lab Routine Hemorrhagic diathesis Expected: 01/29/2022, Expires: 01/29/2023 [facility] Comment on above: Expected: 01/29/2022 , Expires: 01/29/2023 Start: 10-31-2021 Patient discharge [facility] Work Phone: Start: 10-30-2021 Referral to occupati onal therapist [facility] Work Phone: Start: 10-30-2021 Referral to service [facility] Work Phone: Start: 10-30-2021 Ambulation without limitation [facility] Work Phone: Start: 10-30-2021 Assessment of risk o f venous thromboembolism [facility] Work Phone: Start: 10-30-2021 Insertion of cathete r into peripheral vein [facility] Work Phone: Start: 10-30-2021 Measuring intake and output [facility] Work Phone: Start: 10-30-2021 Providing care accor ding to standard [facility] Work Phone: Start: 10-30-2021 [facility] Work Phone: Start: 10-30-2021 Following clinical pathway protocol [facility] Work Phone: Start: 10-30-2021 Admission procedure [facility] Work Phone: Start: 10-25-2016 BONE DENSITY BONE DENSITY [facility] Start: 10-25-2016 Pneumococcal vaccination PNEUM OCOCCAL VACCINE SERIES (1 - PCV) [facility] Start: 10-25-2016 Screening for osteoporosis Bone Density Screening [facility] Start: 2011 Hepatitis B Vaccine (1 of 3 - Risk 3-dose series) Hepatitis B Vaccine (1 of 3 - Risk 3-dose series) [facility] Start: 2011 RSV Vaccine (1 - Ris k 60-74 years 1-dose series) RSV Vaccine (1 - Risk 60-74 years 1-dose series) [facility] Start: 10-25-2001 SHINGRIX VACCINE (1 of 2) TOVAR GRIX VACCINE (1 of 2) [facility] Start: 10-25-2001 Zoster vaccine hzv l maria r for subcutaneous use ZOSTER (SHINGLES) VACCINE (1 of 2) [facility] Start: 10-25-1996 COLOGUARD (FIT-DNA) COLOGUARD (FIT-D NA) [facility] Start: 10-25-1996 Colonoscopy [facility] Start: 10-25-1996 COLORECTAL CANCER SCREENING COLORECTAL CANCER SCREENING [facility] Start: 10-25-[address] COLONOGRAPHY [facility] Start: 10-25-1996 DIABETES SCREEN DIABETES SCREEN [facility] Start: 10-25-1996 FECAL OCCULT BLOOD FECAL OCCULT BLOO D [facility] Start: 10-25-1996 LIPID SCREEN LIPID SCREEN [facility] Start: 10-25-1996 Screening for malign ant neoplasm of colon [facility] Start: 10-25-1996 SIGMOIDOSCOPY SIGMOIDOSCOPY [facility] Start: 1991 Fasting lipid profile LIPID SCREENIN G [facility] Start: 1991 Mammography MAMMOGRAM [facility] Start: 1991 Screening for malign ant neoplasm of breast [facility] Start: 1991 Screening mammography MAMMOGRA M SCREENING DISCUSSION [facility] Start: 10-25-1972 Screening for malign ant neoplasm of cervix CERVICAL CANCER SCREENING DISCUSSION [facility] Start: 10-25-1970 Hepatitis A Vaccine (1 of 2 - Risk 2-dose series) Hepatitis A Vaccine (1 of 2 - Risk 2-dose series) [facility] Start: 10-25-1970 Third diphtheria, te tanus and acellular pertussis (DTaP) vaccination TDAP (ADULT) [facility] Start: 10-25-1970 Urine microalbumin profile DTAP,TDAP,TD (1 - Tdap) [facility] Start: 10-25-1969 ANNUAL PCP TEAM BRAND ANALYST RUT DISEASE VISIT ANNUAL PCP TEAM CHRONIC DISEASE VISIT [facility] Start: 10-25-1969 BP CONTROLLED (<130/80) BP CONTROLLE D (<130/80) [facility] Start: 10-25-1969 HEPATITIS C SCREENING HEPATITIS C SC REENING [facility] Start: 10-25-1969 Tetanus vaccination TETANUS [facility] Start: 04-27-1952 COVID-19 VACCINE (#1) COVID-19 VACCI NE (#1) [facility] Start: 1951 Hepatitis C antibody , confirmatory test HEPATITIS C VIRUS SCREENING [facility] Start: 1951 Hepatitis C screening HEPATITI S C VIRUS SCREENING [facility] Start: 1951 Potassium [Moles/vol ume] in Serum or Plasma POTASSIUM [facility] Start: 1951 Screening for osteoporosis DEXA SCAN DISCUSSION [facility] Blood ammonia measurement [facility] Blood ammonia measurement [facility] Blood ammonia measurement [facility] Cortisol Free [Mass/volume] in 24 hour Urine [facility] Cortisol Free [Mass/volume] in Urine [facility] Elastase.pancreatic [Presence] in Stool [facility] GOLD TOP TUBE GOLD TOP TUBE La b STAT 02/20/2022 2:18 PM EDT [facility] Lamotrigine measurement [facility] Lamotrigine measurement [facility] Lamotrigine measurement [facility] LAVENDER TOP TUBE LAVENDER TOP T UBE Lab STAT 02/20/2022 2:18 PM EDT [facility] MINT GREEN TOP TUBE MINT GREEN T OP TUBE Lab STAT 02/20/2022 2:18 PM EDT [facility] Ova and parasites identified in Unspecified specimen by Light microscopy [facility] Patient Education [facility] Work Phone: Patient referral [facility] Work Phone: Polysomnography [facility] Procedure [facility] RAINBOW DRAW RAINBOW DRAW Lab STAT 02/20/2022 2:18 PM EDT [facility] Work Phone: End: 02-21-2022 Standard ECG ECG ECG STAT One Time for 1 Occurrences starting 02/21/2022 until 02/21/2022 [facility] Comment on above: One Time for 1 Occur rences starting 02/21/2022 until 02/21/2022 Vitamin D, 25-hydrox y measurement [facility] VON WILLEBRAND BATTE RY AGN + FACTOR VIII VON WILLEBRAND BATTERY AGN + FACTOR VIII Lab Routine 02/21/2022 3:23 PM EDT [facility] Work Phone: VWDB-SPECIAL COAG VWDB-SPECIAL C OAG Lab Routine 02/21/2022 3:23 PM EDT [facility] Immunizations Immunization Date Immunization Notes Care Provider Fa [facility] 07-29-2024 pneumococcal conjuga te (PCV20) vaccine, 20 valent (PREVNAR 20) Sherley He MD Work Phone: [facility] 05-18-2024 influenza, seasonal, injectable, preservative free Sherley He MD Work Phone: [facility] 05-18-2024 influenza virus vacc ine, unspecified formulation Lanette Josef ESTIMATOR LUMBER [facility] 02-17-2023 tetanus toxoid, redu rayne diphtheria toxoid, and acellular pertussis vaccine, adsorbed Sherley He MD Work Phone: [facility] 04-23-2022 influenza, injectabl e, quadrivalent, contains preservative Sherley He MD Work Phone: [facility] Work Phone: 05-16-2021 influenza, injectabl e, quadrivalent, contains preservative Sherley He MD Work Phone: [facility] Work Phone: 05-16-2021 influenza virus vacc ine, unspecified formulation [facility] 05-10-2019 influenza, seasonal, injectable Sherley He MD Work Phone: [facility] Work Phone: 09-22-2017 pneumococcal polysaccharide vaccine, 23 valreed He MD Work Phone: [facility] Work Phone: 05-21-2017 influenza, seasonal, injectable Sherley He MD Work Phone: [facility] Work Phone: 05-21-2017 pneumococcal conjuga te vaccine, 13 valreed He MD Work Phone: [facility] Work Phone: 05-04-2017 pneumococcal conjuga te vaccine, 13 valent [facility] Work Phone: 04-07-2017 Influenza virus vaccine [facility] 04-07-2017 influenza, seasonal, injectable Sherley He MD Work Phone: [facility] Work Phone: 04-07-2017 influenza, seasonal, injectable, preservative free Sherley He MD Work Phone: [facility] Work Phone: 05-04-2016 Influenza virus vaccine [facility] 05-04-2016 influenza, seasonal, injectable Sherley He MD Work Phone: [facility] Work Phone: 05-04-2016 influenza, seasonal, injectable, preservative free Sherley He MD Work Phone: [facility] Work Phone: 04-15-2016 influenza, seasonal, injectable Sherley He MD Work Phone: [facility] Work Phone: 06-26-2015 influenza, seasonal, injectable Sherley He MD Work Phone: [facility] Work Phone: 09-15-2012 pneumococcal polysaccharide vaccine, 23 valreed He MD Work Phone: [facility] Work Phone: Payers Date Payer Category Payer Self-pay [id number] 2021 Private Health Insurance [id number] 2019 Managed Care (unspecified) MEDICARE SUPPLEMENT [id number] 2019 Unknown [id number] [id number]. [id number] 2019 Unknown [id number] 2016 Unknown [id number] 2011 Medicare [id number]. [id number] 2011 Medicare [id number] 1950 Unknown [id number] 2.16.840.1.073259.3.579.2. 627 1950 Unknown [id number] 2.16.840.1.365484.3.579.2. 627 1950 Unknown [id number] 2.840.1.588634.3.579.2. 594 1950 Unknown [id number] 2.840.1.671983.3.579.2. 594 1950 Unknown [id number] 2.840.1.538030.3.579.2. 594 1950 Unknown [id number] 2.840.1.870843.3.579.2. 594 1950 Unknown [id number] 2.840.1.957092.3.579.2. 594 Private Health Insurance [facility] [id number] Unknown [id number] Unknown [id number] 2.840.1.129367.3.579.2. 462 Unknown [id number] 2.840.1.961867.3.579.2. 462 Unknown [id number] 2.840.1.692691.3.579.2. 462 Unknown [id number] 2.840.1.908435.3.579.2. 462 Unknown [id number] 2.840.1.824421.3.579.2. 462 Unknown [id number] 2.840.1.274691.3.579.2. 462 Unknown [id number] 2.840.1.517966.3.579.2. 462 Unknown [id number] 2.840.1.656240.3.579.2. 462 Unknown [id number] 2.840.1.000716.3.579.2. 462 Unknown [id number] 2.840.1.805024.3.579.2. 462 Unknown [id number] 2.16.840.1.232585.3.579.2. 462 Unknown [id number] 2.16840.1.774174.3.579.2. 462 Unknown [id number] 2.16.840.1.076335.3.579.2. 462 Unknown [id number] 2.16.840.1.569746.3.579.2. 462 Unknown [id number] 2.16.840.1.776812.3.579.2. 462 Unknown [id number] 2.16.840.1.012396.3.579.2. 462 Unknown [id number] 2.16840.1.317347.3.579.2. 462 Unknown [id number] 2.16840.1.803666.3.579.2. 462 Unknown [id number] 2.840.1.992843.3.579.2. 462 Unknown [id number] 2.16840.1.875022.3.579.2. 462 Social History Date Type Detail Facility Start: 10-30-2021 End: 09-26-2023 Tobacco smoking status [facility] Unknown if ever smoked [facility] Start: 06-27-2018 None [facility] Start: 03-27-2019 With Family [facility] Start: 02-18-2018 Cigarettes [facility] Start: 1950 Sex Assigned At Female W [facility] Start: 11-05-2019 End: 08-30-2024 Tobacco smoking status NHIS Ex-smoker [facility] Start: 08-04-1961 End: 08-04-1991 History of tobacco use Current smoker [facility] Start: 08-04-1961 End: 08-04-1991 History of tobacco use Cigarette Smoker [facility] Start: 11-05-2019 End: 01-03-2022 Cigarettes smoked current (pack per day) - Reported 2 [facility] Start: 11-05-2019 End: 08-19-2022 Tobacco use and exposure Smokeless tobacco non-user [facility] Start: 01-29-2022 End: 04-29-2022 Alcohol intake Ex-drinker (finding) [facility] Start: 1950 Sex Assigned At Not on file [facility] Start: 08-24-2022 End: 09-10-2024 Alcohol intake Current non-drinker of alcohol (finding) [facility] Start: 01-03-2022 End: 09-10-2024 Tobacco use panel [facility] National Score (1-10 0), lower number is lower risk 35 [facility] Sexual Orientation [facility] Start: 11-29-2016 End: 07-07-2019 Sex Female (finding) [facility] Start: 05-19-2022 Gender identity Identifies as female gender (finding) [facility] Goals Date Patient Goal Desired Activity /State Personal health goal Functional Status Date Assessment Result Facility 04-29-2022 Are you deaf, or do you have serious difficulty hearing No 04/29/2022 10:00 AM Charline Hernandez, NIEVES No [facility] 04-29-2022 Are you blind, or do you have serious difficulty seeing, even when wearing glasses No 04/29/2022 10:00 AM Charline Hernandez, NIEVES No [facility] 04-29-2022 Do you have serious difficulty walking or climbing stairs No 04/29/2022 10:00 AM Charline Hernandez, NIEVES No [facility] 04-29-2022 Do you have difficul ty dressing or bathing No 04/29/2022 10:00 AM Charline Hernandez, NIEVES No [facility] 04-29-2022 Because of a physica l, mental, or emotional condition, do you have difficulty doing errands alone such as visiting a physician's office or shopping Yes 04/29/2022 10:00 AM Charline Hernandez, NIEVES Yes [facility] 10-31-2021 Functional status Ambulates [facility] Work Phone: 08-12-2014 Are you deaf, or do you have serious difficulty hearing No 08/12/2014 9:59 AM Shirley Banks LPN No [facility] 08-12-2014 Are you blind, or do you have serious difficulty seeing, even when wearing glasses No 08/12/2014 9:59 AM Shirley Banks LPN No [facility] 08-12-2014 Do you have serious difficulty walking or climbing stairs No 08/12/2014 9:59 AM Shirley Banks LPN No [facility] 08-12-2014 Do you have difficul ty dressing or bathing No 08/12/2014 9:59 AM Shirley Banks LPN No [facility] 08-12-2014 Because of a physica l, mental, or emotional condition, do you have difficulty doing errands alone such as visiting a physician's office or shopping No 08/12/2014 9:59 AM Shirley Banks LPN No [facility] Mental Status Date Assessment Result Facility 03-28-2023 Cognitive function Voice/Name [facility] Work Phone: 09-27-2022 Cognitive function Voice/Name [facility] Work Phone: 05-09-2022 Cognitive function Level Of Cons ciousness Awake;Alert;Appropriate;Fol lows Commands [facility] Work Phone: 05-08-2022 Cognitive function Awake;Alert;A ppropriate;Fol lows Commands [facility] Work Phone: 04-29-2022 Because of a physica l, mental, or emotional condition, do you have serious difficulty concentrating, remembering, or making decisions No 04/29/2022 10:00 AM Charline Hernandez RN No [facility] 03-29-2022 Cognitive function Awake;Alert;A ppropriate;Fol lows Commands [facility] Work Phone: 10-31-2021 Cognitive function Voice/Name [facility] Work Phone: 10-30-2021 Cognitive function Voice/Name [facility] Work Phone: 09-28-2021 Cognitive function Voice/Name [facility] Work Phone: 08-12-2014 Because of a physica l, mental, or emotional condition, do you have serious difficulty concentrating, remembering, or making decisions Yes 08/12/2014 9:59 AM Shirley Banks LPN Yes [facility] Clinical Notes 01-03-2022 to 02-14-2025 Telephone Encounter - Marleni Burton RN - 02/14/2025 1:23 PM EDTTelephone Encounter - Marleni Burton RN - 02/14/2025 1:23 PM EDTTelephone Encounter - Beth Thompson - 02/14/2025 1:07 PM EDT Note Date & Type Note Facility 02-14-2025 Telephone encounter Note RN returns call to Angelica, daughter of patient. Angelica states pt is in need of a cardioversion and possibly a watchman, but the local clinical assistant professor has been giving them the run around for the last 8 months. Because of all of this they have decided to try to move the pts care back to [facility]. Angelica states they were unsure where to start and what to do. RN explains that patients appointment next week will get her re-established with us and from there we will likely need to get labs drawn and we can send a cardiac referral for the patient. RN explains once they see the cardiac doctor and are ready we will make a plan for the patient for procedure which typically involves a medication prior to the procedure and possibly after. RN reviews the need for minimal 2 week notice time for procedure planning and medication to get approved by insurance and shipped out and home health set up. Angelica thanks this RN and states she has no other questions at this time. [facility] 02-14-2025 Miscellaneous Notes RN returns call to Angelica, daughter of patient. Angelica states pt is in need of a cardioversion and possibly a watchman, but the local clinical assistant professor has been giving them the run around for the last 8 months. Because of all of this they have decided to try to move the pts care back to [facility]. Angelica states they were unsure where to start and what to do. RN explains that patients appointment next week will get her re-established with us and from there we will likely need to get labs drawn and we can send a cardiac referral for the patient. RN explains once they see the cardiac doctor and are ready we will make a plan for the patient for procedure which typically involves a medication prior to the procedure and possibly after. RN reviews the need for minimal 2 week notice time for procedure planning and medication to get approved by insurance and shipped out and home health set up. Angelica thanks this RN and states she has no other questions at this time. Pt's daughter called requesting to speak with team question regarding Pt's upcoming appointment. Please call [place] at [phone] . Thank you We can consider giving recommendations directly to her systems security analyst or see her on the phone as they live far SW received call from pt's daughter, Bettina Wong. Daughter reports pt has had some heart concerns for the last 8 months. Pt attempted to establish care with a local clinical assistant professor and cardiovascular doctor and neither want to address the concern. Bettina would like pt to re-establish care at [facility]. She reports her mother requires another cardioversion, which was last done at [facility]. She also reports pt is having bleeding concerns on the surface of her skin that shows up without injury. SW to inform team of bleeding concerns. Bettina requesting for team to speak with Narinder, pt's , due to memory loss. documented in this encounter [facility] 02-14-2025 Telephone encounter Note Pt's daughter called requesting to speak with team question regarding Pt's upcoming appointment. Please call [place] at [phone] . Thank you [facility] 02-09-2025 Telephone encounter Note We can consider giving recommendations directly to her systems security analyst or see her on the phone as they [place] [facility] Telephone encounter Note SW received call from pt's daughter, Bettina Wong. Daughter reports pt has had some heart concerns for the last 8 months. Pt attempted to establish care with a local clinical assistant professor and cardiovascular doctor and neither want to address the concern. Bettina would like pt to re-establish care at [facility]. She reports her mother requires another cardioversion, which was last done at [facility]. She also reports pt is having bleeding concerns on the surface of her skin that shows up without injury. SW to inform team of bleeding concerns. Bettina requesting for team to speak with Narinder, pt's , due to memory loss. [facility] 01-05-2025 Evaluation + Plan note Diagnostic Tests PendingFactor VIII Assay 01/05/25VWF GPIbM Activity 01/05/25 [facility] 01-03-2025 Telephone encounter Note Received office visit noted from Yadira Patel Hematology and Oncology. Scanned in for review. Analilia Villarreal LPN [facility] 01-03-2025 Miscellaneous Notes Received office visit noted from Yadira Patel Hematology and Oncology. Scanned in for review. Analilia Villarreal LPN documented in this encounter [facility] 12-31-2024 Evaluation + Plan note Future Scheduled TestsVWF GPIbM Activity 12/31/24Complete Blood Count 12/31/24Factor VIII Assay 12/31/24 [facility] 12-23-2024 Evaluation note Diagnosis Onset Date Resolution Dementia chronic December 23, 2024 10:00am Epilepsy chronic December 23, 2024 10:00am Fatigue chronic December 23, 2024 10:00am Pseudoseizure chronic December 23, 025 10:00am Fatigue chronic January 24 10:32am [facility] Work Phone: 1(701) 949-516002-24-2025 Evaluation note* Diagnosis Onset Date Resolution Status Admit Date Osteoporosis chronic September 1:27pm Dementia chronic December 23, 2024 10:00am Epilepsy chronic December 23, 2024 10:00am Fatigue chronic December 23, 2024 10:00am Pseudoseizure chronic December 23, 025 10:00am [facility] Work Phone: 1(689) 501-452702-07-2025 History of Present illness Narrative* Sherley He MD - 09/10/2024 2:20 PM EST PRIMARY CARE PHYSICIAN: Haroon Patel ([facility]) [address] [place] [id number] Patient Care Team: Haroon Patel MD as PCP - General (Family Medicine) Analilia Omer MD as Specialty Preventive Maintenance Coordinator (Hematology/Oncology) Sherley He MD as Specialty Preventive Maintenance Coordinator (Cardiology) Jose Enrique Prince MD as Specialty Preventive Maintenance Coordinator (Cardiology) Marlene Webb PA-C as Physician Corporate Ethics Officer (Cardiology) CHIEF COMPLAINT: Follow up for arrhythmia HISTORY OF PRESENT ILLNESS: Ms. Rollins is a 73 year old female who presents today for a cardiovascular medicine follow-up visit. History copied from previous notes, edited as needed: Summary of previous notes: Ms. Rollins has history of atrial fibrillation, diagnosed in [...] in atrial fibrillation. She was evaluated at [facility] by an catering barista, this was about April 2022, she was [...] This option had been mentioned by the [facility] EP physician (Dr. Casanova). Ms. Rollins was referred to me in August 2022 to discuss candidacy for Watchman left atrial appendage closure device. As outlined above, if she is correct that she is no longer considered to have hypertension, her [id number] score is 2 points, with that particular combination of age and female gender being considered intermediate, as opposed to a risk score of 2 involving a harder risk factor such as HTN or DM. The current FDA indication or labellingfor Watchman requires [id number] score of 2 or higher, and perhaps more importantly the current Sandi ional Coverage Determination (NCD) from CMS/Medicare requires a [id number] score of 3 or higher for the insurance coverage. Thus, she does not meet CMS/Medicare NCD guidelines. PLAN AND RECOMMENDATIONS (08/2022): Presently Ms. Rollins does not meet required criteria for Watchman left atrial appendage closure device per CMS/Medicare coverage guidelines. Interim History Dr. He 09/10/2024: Ms. Rollins presents for evaluation of atrial fibrillation, accompanied by her . She was last evaluated by me in August 2022, primarily for consideration of left atrial appendage closure device, such as Watchman device, as alternative to oral anticoagulation therapy for stroke prevention from atrial fibrillation. At that time she was not considered to meet criteria set by FDA or CMS/Medicare. She is not being treated with anticoagulation therapy orantiplatelet therapy, as she has risk for bleeding due to history of von Willebrand disease. No clear symptoms from the atrial fibrillation, except perhaps fatigue. No syncope. She has been referred b ack to me for consideration again of Watchman device implant, and also regarding atrial fibrillation management. I have confirmed and edited as necessary, the PFSH and ROS obtained by others. PAST MEDICAL HISTORY Diagnosis Date Acid reflux Anemia Arthritis At risk for bleeding associated with anticoagulants At risk for stroke [id number] = 2 (age, female gender); she denies have HTN; age and female gender are considered soft risk factors for stroke from atrial fibrillation, considered borderline or intermediate Clostridium difficile infection 2004 Depression Fibromyalgia Generalized anxiety disorder GERD (gastroesophageal reflux disease) Hepatitis C treated [id number], cleared High blood pressure previously on lisinopril for high blood pressure, but discontinued as the blood pressure normalized Inflammatory polyarthropathy (HCC) Longstanding persistent atrial fibrillation (HCC) Osteoarthrosis Osteopenia Vitamin D deficiency Von Willebrand's disease (HCC) PAST SURGICAL HISTORY Procedure Laterality Date BIOPSY BREAST CARDIOVERSION, ELECTIVE, ELECTRICAL 04/2022 [facility]; after sotalol loading D&C, DIAG AND/OR THERAPEUTIC 04/04/1970 D & C HYSTERECTOMY HX 1987 KNEE SURGERY HX 08/04/2006 knee surgery REMOVAL GALLBLADDER cholecsystectomy SOCIAL HISTORY Social History Tobacco Use Smoking status: Former Current packs/day: 0.00 Types: Cigarettes Quit date: 08/04/1987 Years since quittin.1 Smokeless tobacco: Never Substance Use Topics Alcohol [...] Comments Morphine Unknown Sassafras Oil Unknown MEDICATIONS: donepezil (ARICEPT) 5 mg tablet Take 10 mg by mouth. metoprolol tartrate, short acting, (LOPRESSOR) 50 mg tablet Take 50 mg by mouth two times a day. potassium chloride ER (KLOR-CON) 20 mEq tablet Take 20 mEq by mouth once daily. cyanocobalamin, vitamin B-12, (VITAMIN B-12 INJECTION) by INJECTION(UNSPECIFIED PARENTERAL ROUTES) route once every month. lamoTRIgine (LAMICTAL) 25 mg tablet Take 25 mg by mouth. acetaminophen (TYLENOL) 500 mg tablet Take 500 mg by mouth every 6 hours as needed. omeprazole (PRILOSEC) 40 mg capsule Take 40 mg by mouth once daily. CALCIUM CARBONATE/VITAMIN D2 (CALCIUM + VITAMIN D ORAL) Take 2 teaspoonsful by mouth once daily. GENTEAL EYE DROPS (1) one drop in each eye 1-2 times daily. Review of Systems Constitutional: Positive for malaise/fatigue. Negative for chills and fever. Respiratory: Negative for cough, hemoptysis, sputum production and shortness of breath. Cardiovascular: Positive for chest pain. Negative for palpitations, orthopnea, claudication, leg swelling and PND. Gastrointestinal: Negative for abdominal pain, blood in stool, melena, nausea and vomiting. Genitourinary: Negative for dysuria, flank pain and hematuria. Neurological: Negative for seizures and loss of consciousness. PHYSICAL EXAMINATION: BP 153/84 Pulse 75 Wt 123 lb 6.4 oz (56.0kg) SpO2 99% Physical Exam Vitals reviewed. Constitutional: General: She is not in acute distress. Cardiovascular: Rate and Rhythm: Normal rate. Rhythm irregularly irregular. Heart sounds: Normal heart sounds, S1 normal and S2 normal. No murmur heard. No friction rub. Pulmonary: Effort: Pulmonary effort is normal. No respiratory distress. Breath sounds: Normal breath sounds. No wheezing, rhonchi or rales. Musculoskeletal: Right lower leg: No edema. Left lower leg: No edema. Skin: General: Skin is warm and dry. Neurological: Mental Status: She is alert and oriented to person, place, and time. Psychiatric: Mood and Affect: Mood normal. Behavior: Behavior normal. Thought Content: Thought content normal. CARDIOVASCULAR MEDICINE TESTING: Electrocardiogram: Atrial fibrillation with controlled ventricular response, average 82 bpm; normalQRS duration 102 ms; QTc 443 ms I have personally reviewed the Electrocardiogram. I spent a total of 45 minutes on the date of the service which included preparing to see the patient, [id number] patient care, completing clinical documentation, obtaining and/or reviewing separately obtained history, performing a medically appropriate examination, counseling and educating the pat ient/family/caregiver, ordering medications, tests, or procedures, communicating with other HCPs (not separately reported), independently interpreting results (not separately reported), communicatingresults to the patient/family/caregiver, and care coordination (not separately reported). 1. Persistent atrial fibrillation (HCC) - ICD9: 427.31, ICD10: I48.19 (primary diagnosis) 2. At risk for stroke - ICD9: V15.89, ICD10: Z91.89 3. At risk for bleeding associated with anticoagulants - ICD9: V15.89, ICD10: Z91.89 4. Iron deficiency anemia due to chronic blood loss - ICD9: 280.0, ICD10: D50.0 5. Von Willebrand's disease (HCC) - ICD9: 286.4, ICD10: D68.00 6. Epistaxis - ICD9: 784.7, ICD10: R04.0 CHADS2-Vasc Score Breakdown 3 Total Score 1 Female 1 Age 65-74 years old 1 History of hypertension HAS-BLED score: 2 points (prior bleeding -- epistaxis, blood loss anemia; age > 65 years) MODIFIED JODI SCORE: 1 = No significant disability w/ symptoms. All usual activities/duties. IMPRESSION: Ms. Rollins has persistent atrial fibrillation, perhaps with mild symptoms (fatigue) --- unclear as she clearly states the atrial fibrillation is bothersome but has trouble articulating what symptoms she might experience. It seems primarily fatigue and just feeling poorly. She believes that her quality of life is better in sinus rhythm. So there is consideration of atrial fibrillation catheter ablation as a treatment option. There is also an issue of unfavorable risk:benefit of oral anticoagulation therapy, or even antiplatelet therapy, due to her von Willebrand disease and previous bleeding (blood loss anemia and epistaxis). So she has not been on oral anticoagulation or aspirin. I had a very detailed discussion with Ms. Rollins and her about this situation. The treatmentoptions of atrial fibrillation catheter ablation and Watchman left atrial appendage closure device implant would both require some form of short term anticoagulation therapy. For atrial fibrillation catheter ablation, she would need about 2 months minimum of oral anticoagulation therapy, such as with direct oral anticoagulant (DOAC). Otherwise the procedure cannot be safely performed. We could consider doing the Watchman left atrial appendage closure device at the same time as the atrial fibrillation ablation, as both procedures are performed in the left atrium via transseptal puncture. The Wa tchman device would require at least 6 weeks post procedure of either OAC + ASA for 6 weeks then Plavix + ASA until 6 months post implant, or the alternative regimen of Plavix + ASA from the day of implant until 6 months post implant. So these procedures hinge upon her ability to safely take these anticoagulation and/or antiplateletregimens. If we decide to just do Watchman implant alone and not perform atrial fibrillation catheter ablation, she would need the post Watchman implant regimen as outlined above, with one choice being the Plavix + ASA and thus avoiding OAC. But if we perform atrial fibrillation catheter ablation she would need OAC for about one month prior to the ablation procedure and for at minimum one month post procedure. Very complex situation. I would ask for hematology to give an opinion as to whether she can safely take oral anticoagulation or antiplatelet regimens outlined above. We need to start there, as restrictions on such medications would potentially impact what procedures we are able to offer to her. I had a detailed discussion with Ms. Rollins and her regarding my evaluation and recommendations. After our discussion, Ms. Rollins and her expressed understanding and I answered all questions to their apparent satisfaction. PLAN AND RECOMMENDATIONS: Review case with regards to management of atrial fibrillation, but it starts with whether or not she can be treated with oral anticoagulation therapy or antiplatelet therapy for at least short term. We need clinical assistant professor recommendations in this regard. Return for plan of care will depend upon further review in conjunction with her other physicians. Sherley He MD 09/10/2024 Medical Decision Making: Problems: Moderate: 1+ chronic illnesses with change Data: Unique source(s) for external note(s) reviewed: 3+ Unique test result(s) reviewed: 3+ Unique test(s) ordered: 1 Risk: Moderate: Moderate risk from testing/treatment, Drug management and Decision on minor surgery w/ risk factors Medical Decision Making Level: 4 - Moderate documented in [facility] NoteHNO ID: [id number] Author: SHERLEY HE MD Service: ? Author Type: Physician Type: Progress Notes Filed: 09/11/2024 19:49 Note Text: PRIMARY CARE PHYSICIAN: Haroon Patel ([facility]) [address] [place] [address] Patient Care Team: Haroon Patel MD as PCP - General (Family Medicine) Analilia Omer MD as Specialty Preventive Maintenance Coordinator (Hematology/Oncology) Sherley He MD as Specialty Preventive Maintenance Coordinator (Cardiology) Jose Enrique Prince MD as Specialty Preventive Maintenance Coordinator (Cardiology) Marlene Webb PA-C as Physician Corporate Ethics Officer (Cardiology) CHIEF COMPLAINT: Follow up for arrhythmia HISTORY OF PRESENT ILLNESS: Ms. Rollins is a 73 year old female who presents today for a cardiovascular medicine follow-up visit. History copied from previous notes, edited as needed: Summary of previous notes: Ms. Rollins has history of atrial fibrillation, diagnosed in about 2017. She had atrial fibrillation when she was [...] in atrial fibrillation. She was evaluated at [facility] by an catering barista, this was about April 2022, she was [...] This option had been mentioned by the [facility] EP physician (Dr. Casanova). Ms. Rollins was referred to me in August 2022 to discuss candidacy for Watchman left atrial appendage closure device. As outlined above, if she is correct that she is no longer considered to have hypertension, her [id number] score is 2 points, with that particular combination of age and female gender being considered intermediate, as opposed to a risk score of 2 involving a harder risk factor such as HTN or DM. The current FDA indication or labelling for Watchman requires [id number] score of 2 or higher, and perhaps more importantly the current National Coverage Determination (NCD) from CMS/Medicare requires a [id number] score of 3 or higher for the insurance coverage. Thus, she does not meet CMS/Medicare NCD guidelines. PLAN AND RECOMMENDATIONS (08/2022): Presently Ms. Rollins does not meet required criteria for Watchman left atrial appendage closure device per CMS/Medicare coverage guidelines. Interim History Dr. He 09/10/2024: Ms. Rollins presents for evaluation of atrial fibrillation, accompanied by her . She was last evaluated by me in August 2022, primarily for consideration of left atrial appendage closure device, such as Watchman device, as alternative to oral anticoagulation therapy for stroke prevention from atrial fibrillation. At that time she was not considered to meet criteria set by FDA or CMS/Medicare. She is not being treated with anticoagulation therapy or antiplatelet therapy, as she has risk for bleeding due to history of von Willebrand disease. No clear symptoms from the atrial fibrillation, except perhaps fatigue. No syncope. She has been referred back to me for consideration again of Watchman device implant, and also regarding atrial fibrillation management. I have confirmed and edited as necessary, the PFSH and ROS obtained by others. PAST MEDICAL HISTORY Diagnosis Date Acid reflux Anemia Arthritis At risk for bleeding associated with anticoagulants At risk for stroke [id number] = 2 (age, female gender); she denies have HTN; age and female gender are considered soft risk factors for stroke from atrial fibrillation, considered borderline or intermediate Clostridium difficile infection 2004 Depression Fibromyalgia Generalized anxiety disorder GERD (gastroesophageal reflux disease) Hepatitis C treated [id number], cleared High blood pressure previously on lisinopril for high blood pressure, but discontinued as the blood pressure normalized Inflammatory polyarthropathy (HCC) Longstanding persistent atrial fibrillation (HCC) Oste (more content not included)...[facility]09-10-2024 Note [facility] Medical Records Department [address] [place] [address] History Physical Exam 04/13/24 1345 MR#: [id number] Acct: [id number] Name: TANYA ROLLINS Rep #: [id number] : 1950 73 From: Inder Friend DO PCP: Dr. Haroon Patel MD Status:[facility] Location: [place] [address] History and Physical Date of Admission: 04/13/24 Nurse's Note: OV 03.01.24 Pt reports diarrhea, fatigue, weakness, heartburn, indigestion and difficulty swallowing. Pt states she has diarrhea about 4 or more times a day. Pt has not has a seizure in about 1 1/2 years. She takes omeprazole daily. COUNTS INCLUDE 234 BEDS AT THE [facility] Medical History Acute respiratory failure with hypoxia Afib Anxiety and depression Arthritis Bleeding disorder Cardiac enzymes elevated Cataract, left eye Chronic bronchitis Essential hypertension Gallstones Heart murmur Hepatitis C History of blood clots History of blood transfusion Hypercortisolemia IBS (irritable bowel syndrome) Influenza A Liver disease Mental status change Narcolepsy Neuropathy Osteoarthritis Osteopenia Osteoporosis Osteoporosis Paroxysmal atrial fibrillation Pneumonia Rheumatoid arthritis Sepsis Vitamin deficiency Von Willebrand disease Surgical History History of breast biopsy History of cholecystectomy History of colonoscopy ( 2010) History of dilation and curettage History of esophagogastroduodenoscopy (EGD) ( 2005) History of repair of ACL History of total hysterectomy Family History Mother Endometrial cancer Breast cancer Ovarian cancer Respiratory diseaseUncle Cardiac diseaseSister Liver disease Hep CFather Depression Social History Smoking Status: Former smoker Tobacco: How many years used: 10 how long ago did patient quit smokin second hand exposure: No alcohol intake: never substance use type: does not use caffeine: Yes Type: coffee Number of servings: 2 HPI HPI Chief Complaint: diarrhea Details: TANYA ROLLINS, is a 73 F who presents to the office today for establishment with [facility]. She has been having daily diarrhea for a year and a half. Prior to this, she has always had occasional diarrhea but it has progressively been worsening. She is unable to leave her home because she is afraid of having an accident. She has been losing weight as well as not having an appetite. She also has fatigue. She is unable to tell me if she would still have diarrhea if she did not eat. She is not sure when her last colonoscopy and EGD were but says she has had one. Her also mentions she has a hard time swallowing and cannot take pills. She says she has a small throat. She denies abdominal pain, n/v, melena or hematochezia. ROS Const Constitutional: Positive for fatigue and weight change; No fever(s) ENT ENT: Positive for difficulty swallowing Cardio Cardiology: Positive for leg pain with exertion Gastro GI: Positive for diarrhea and difficulty swallowing; No abdominal pain, belching, bloating, change in bowel habits, change in stool character, coffee ground emesis, constipation, cramping, heartburn, feeling full early, excessive flatus, incontinent of stools, Vomiting blood/hematemesis, Blood in stool, loose stools, Black,tarry stools, nausea/dyspepsia, pain with swallowing, vomiting or other Musc Musculoskeletal: Positive for abnormal gait, joint pain, muscle weakness, numbness, tingling, Arthritis, restless legs and leg pain with exertion Skin Skin: No yellowing of the eye or itchy eyes Neuro Neurology: Positive for abnormal gait, numbness, tingling and restless legs Psych Psychiatric: Positive for anxiety and Positive for depression Endo Endocrine: Positive for fatigue and weight change Aller/Imm Allergy/Immunologic: No itchy eyes Del/Lymp Hematologic/Lymphatic: Positive for easy bleeding and easy bruising Exam Const General: cooperative and comfortable Nutritional Appearance: average body habitus and well nourished HENMT Head: normal to inspection Ears: hearing grossly normal bilaterally Nose: external nose normal Face and sinus: normal facial exam Mouth: oral mucosae normal Throat: posterior oropharynx normal Eyes General: appearance normal, both eyes and all related structures Neck Neck: normal visual inspection Chest Chest palpation inspection: normal inspection of the chest and normal palpation of entire chest wall Resp Effort Inspection: normal respiratory effort Auscultation: Bilateral: Clear to Auscultation Cardio Palpation: normal PMI Rate: regular rate Rhythm: regular rhythm GI Inspection: normal to inspection Auscultation: normal bowel sounds P (more content not included)...[facility]06-06-[address] Stanford [facility] January 07, 2023 9:00pm Note Date/Time January 07, 2023 8:58p m [facility] Medical Records Department [address] [place] [address] Emergency Department Summary 01/07/23 MR#: [id number] Acct: [id number] Name: TANYA ROLLINS Rep #:[id number] : 1950 72 From: Bernardino Stanford MD PCP: Dr. Robert Patel MD Status: REG ER Location: ED HPI History of Present Illness Chief Complaint: Dental Narrative Narrative: 72-year-old female has past medical history of von Willebrand's disease. She presents with her wanting injection of factor VIII. They state that usually before dental procedure, or any other sort of procedure she received factor VIII. Other things such as Stimate do not work for her von Willebrand's. She went to the dentist today and thought she was having caps put on her teeth,but she was not seen by her regular dentist and they state that this other dentist extracted 4 of her teeth in her upper jaw. She has had bleeding since the procedure at 3 PM, almost 5 to 6 hours ago. They present wanting infusion of factor VIII, as they are clinical assistant professor is in [place]. [facility] Medical History Acute respiratory failure with hypoxia Afib Anxiety and depression Arthritis Bleeding disorder Cardiac enzymes elevated Cataract, left eye Chronic bronchitis Essential hypertension Gallstones Heart murmur Hepatitis C History of blood clots History of blood transfusion IBS (irritable bowel syndrome) Influenza A Liver disease Mental status change Narcolepsy Neuropathy Osteoarthritis Osteopenia Osteoporosis Osteoporosis Paroxysmal atrial fibrillation Pneumonia Rheumatoid arthritis Sepsis Vitamin deficiency Von Willebrand disease Home Medications omeprazole 40 mg capsule,delayed release 40 mg PO BID gerd/acid reflux 05/18/16 [History Last Taken 10/30/21] multivitamin,nv-mhmh-fforictl (Complete Multivitamin tablet) 1 tab PO DAILY 05/31/19 [History Last Taken 10/30/21] cholecalciferol (vitamin D3) 50 mcg (2,000 unit) capsule (Vitamin D3) 50 mcg PO DAILY 10/30/21 [History Last Taken 10/30/21] denosumab 60 mg/mL subcutaneous syringe 60 mg subcut [id number] BONES 10/30/21 [History Last Taken 1 Month Ago ~10/01/21] acetaminophen 325 mg tablet 325 mg PO BID PRN Pain 05/15/22 [History Last Taken Unknown] fluticasone propionate 50 mcg/actuation nasal spray,suspension 2 spray intranasal DAILY PRN allergies 05/15/22 [History Last Taken Unknown] metoprolol tartrate 50 mg tablet 50 mg PO BID 05/15/22 [History Last Taken Unknown] potassium chloride 20 mEq tablet,extended release(part/cryst) 20 meq PO DAILY supplement 05/15/22 [History Last Taken Unknown] donepezil 10 mg tablet 10 mg PO QHS #30 tabs 09/25/22 [Rx Last Taken Unknown] donepezil 5 mg tablet 5 mg PO QHS #30 tabs 09/25/22 [Rx Last Taken Unknown] lamotrigine 25 mg tablet 50 mg PO BID #120 tabs 09/25/22 [Rx Last Taken Unknown] Allergy/AdvReac Type Severity Reaction Status Date / Time codeine Allergy Hives Verified 01/07/23 17:58 morphine Allergy Hives Verified 01/07/23 17:58 Opioids - Morphine Analogues Allergy Hives Verified 01/07/23 17:58 sotalol AdvReac Unknown Confusion Verified 01/07/23 17:58 aminocaproic acid AdvReac NEEDS Verified 01/07/23 17:58 [From Amicar] FOLLOW-UP bupropion AdvReac Nausea Verified 01/07/23 17:58 cephalexin AdvReac Upset Verified 01/07/23 17:58 Stomach duloxetine [From Cymbalta] AdvReac Other Verified 01/07/23 17:58 Food Allergies: Uncoded AdvReac Nausea/Vom/ Verified 01/07/23 17:58 Diarrhea levetiracetam [From Keppra] AdvReac Other Verified 01/07/23 17:58 Family History Mother Endometrial cancer Breast cancer Ovarian cancer Respiratory disease Uncle Cardiac disease Sister Liver disease Hep C Father Depression Surgical History History of breast biopsy History of cholecystectomy History of colonoscopy (~2010) History of dilation and curettage History of esophagogastroduodenoscopy (EGD) (~2005) History of repair of ACL History of total hysterectomy Social History Smoking Status: Former smoker Tobacco: How many years used: 10 how long ago did patient quit smokin second hand exposure: No alcohol intake: never substance use type: does not use caffeine: Yes Type: coffee Number of servings: 2 ROS ROS ED ROS Narrative Constitutional: No fever, no chills. HEENT: No sore throat. No neck pain. No loss of vision. No rhinorrhea. Bleeding from dental extractions. Cardiovascular: No chest pain. No palpitations. No pedal edema. Respiratory: No cough, no shortness of breath. Abdominal: No abdominal pain. No nausea. No vomiting. Genitourinary: No dysuria. No hematuria. Musculoskeletal: No myalgias. No arthralgias. Neurologic: No headaches. No dizziness. No lightheadedness. Skin: No rash. No change in color. Psychiatric: No depression. No anxiety. EXAM Physical Exam Narrative Exam Narrative: Afebrile. Vital signs noted. HEENT: Normocephalic. Atraumatic. PERRL, EOMI. Neck soft and supple. No pointtenderness or step off. Evidence of for tooth extractions and upper jaw, 2 on left and 2 on right, with clot noted, minimal bright red blood on gauze that thepatient has been biting on. Cardiovascular: Regular rate and rhythm. No murmurs, rubs, or gallops appreciated. Respiratory: No tachypnea. Lungs clear to auscultation bilaterally. Gastrointestinal: Abdomen soft, nontender, with normoactive bowel sounds. No rebound or guarding. Neurological: Awake. Alert. Nonfocal, nonlateralizing. Skin: No rash. Normal color. No pallor. Musculoskeletal: No pedal edema. Full range of motion extremities. Const Vital Signs: 01/07/23 17:56 Temperature 96.1 F L Temperature Source Temporal Pulse Rate 79 Respiratory Rate 18 Blood Pressure 177/79 H Blood Pressure Mean 111 Pulse Ox 100 Oxygen Delivery Method Room Air MDM MDM MDM Narrative Medical decision making narrative: I reviewed the patient's prior ED visits. Additionally, I am unsure if factor VIII is available here at this facility. I discussed the patient with Dr. Edy Ahumada with hematology/oncology as the patient states she is usually seen in [place], and that her clinical assistant professor reportedly has privileges at the [facility] site. He states that the patient would need transfer to a tertiary care facility for factor VIII. When they were told this, the patient and her signed out AGAINST MEDICAL ADVICE and did not want to wait for ED to ED transfer. They were informed of the risk of permanent disability and by signing out AMA and not waiting for transfer. They acknowledged an understanding. I feel that the patient has the capacity to sign out AGAINST MEDICAL ADVICE. Patient currently is in stable condition. History & Record Review Discussion w/independent historian: Patient and Family Additional record(s) reviewed:: Prior ED visit Discharge Plan Triage Chief Complaint: Dental ED Provider: Bernardino Stanford Dx/Rx/DC Orders Prescriptions: No Action Complete Multivitamin Tablet 1 tab PO DAILY fluticasone propionate 50 mcg/actuation spray,suspension 2 spray INTRANASAL DAILY PRN (Reason: allergies) acetaminophen 325 mg tablet 325 mg PO BID PRN (Reason: Pain) lamotrigine 25 mg tablet 50 mg PO BID Qty: 120 5RF donepezil 5 mg tablet 5 mg PO QHS Qty: 30 0RF donepezil 10 mg tablet 10 mg PO QHS Qty: 30 5RF Rx Instructions: Begin after completing one month of treatment of donepezil 5mg nightly omeprazole 40 MG capsule 40 mg PO BID Label Comments: gerd/acid reflux potassium chloride 20 mEq tablet,ER particles/crystals 20 meq PO DAILY cholecalciferol (vitamin D3) [Vitamin D3] 50 mcg (2,000 unit) Capsule 50 mcg PO DAILY denosumab 60 mg/mL syringe 60 mg subcut [id number] metoprolol tartrate 50 mg tablet 50 mg PO BID Primary Care Provider: Robert Patel Referrals: Robert Patel MD [Primary Care Provider] - What to do if you have Problems For any increased pain, shortness of breath, bleeding, nausea or vomiting, chestpain, or any unexpected problems, contact your Primary Care Provider. Call [facility] ([phone]) or report to the closest Emergency Room. Call 911 if necessary. 01/07/23 2100 <Electronically signed by Bernardino Stanford MD> Cosigner Signature (if applicable): CC: Dr. Robert Patel MD ~ Signed [facility] Work Phone: [phone] 217-309001-16-2023 Nurse Note* Emily Beach MA - 08/19/2022 3:32 PM EST No cardiac concerns at this time documented in this encounterBar[facility]01-16-[facility]23 History of Present illness Narrative* Sherley He MD - 08/19/2022 3:20 PM EST PRIMARY CARE PHYSICIAN: Haroon Patel ([facility]) [address] [place] [address] REFERRING PHYSICIAN: Analilia Omer [address] [place] [id number] Patient Care Team: Haroon Patel MD as PCP - General (Family Medicine) Edy Mcneil as Specialty Preventive Maintenance Coordinator (Cardiology) Analilia Omer MD as Specialty Preventive Maintenance Coordinator (Hematology/Oncology) CHIEF COMPLAINT: Evaluation for arrhythmia HISTORY OF PRESENT ILLNESS: Ms. Rollins is a 71 year old female who presents today for evaluation of arrhythmia, referred by Dr. Analilia Omer, Dairy Technologist. Ms. Rollins has history of atrial fibrillation, diagnosed in about 2018.She had atrial fibrillation when she was hospitalized, had some type of respiratory arrest and thenthe atrial fibrillation occurred. The arrhythmia spontaneously converted back to sinus rhythm. She states that she is not aware of having atrial fibrillation after that until 2021 when she was experiencing fatigue and shortness of breath, particularly with exertion. She was evaluated by her primarycare physician and was found to be in atrial fibrillation. She was evaluated at [facility] by an catering barista, this was about April 2022, she was treated with sotalol and oral anticoagulation with Eliquis. She underwent electrical cardioversion to restore sinus rhythm at that time. She states that the sotalol was discontinued in May 2022 because she was experiencing sympt oms that she attributed as side effects to [...] This option had been mentioned by the [facility] EP physician (Dr. Caasnova). She presents to discuss the option. I have confirmed and edited as necessary, the PFSH and ROS obtained by others. PAST MEDICAL HISTORY Diagnosis Date Acid reflux Anemia Arthritis At risk for bleeding associated with anticoagulants At risk for stroke [id number] = 2 (age, female gender); she denies have HTN; age and female gender are considered soft risk factors for stroke from atrial fibrillation, considered borderline or intermediate Clostridium difficile infection 2004 Depression Fibromyalgia Generalized anxiety disorder GERD (gastroesophageal reflux disease) Hepatitis C treated 0449-0287, cleared High blood pressure previously on lisinopril for high blood pressure, but discontinued as the blood pressure normalized Inflammatory polyarthropathy (HCC) Osteoarthrosis Osteopenia Vitamin D deficiency Von Willebrand's disease PAST SURGICAL HISTORY Procedure Laterality Date BIOPSY BREAST CARDIOVERSION, ELECTIVE, ELECTRICAL 04/2022 [facility]; after sotalol loading D&C, DIAG AND/OR [...] Sinus rhythm 69 bpm; normal conduction intervals (MN 168 ms, QRS 110 ms); QTc 435 [...] for stroke - ICD9: V15.89, ICD10: Z91.89 [id number] = 2 (age, female gender). Patient denies having HTN anymore, states this condition resolved. So she no longer has [id number] score of 3. The two risk factors she has (age, female gender)are considered soft and this particular combination of risk factors is therefore considered intermediate risk --- much like a male patient with [id number] score of 1 (this is per recent updates toPractice Guidelines). 3. At risk for bleeding associated with anticoagulants - ICD9: V15.89, ICD10: Z91.89 See #4 4. Von Willebrand's disease - ICD9: 286.4, ICD10: D68.00 IMPRESSION: Ms. Rollins was referred to discuss candidacy for Watchman left atrial appendage closure device. As outlined above, if she is correct that she is no longer considered to have hypertension, her [id number] score is 2 points, with that particular combination of age and female gender being considered intermediate, as opposed to a risk score of 2 involving a harder risk factor such as HTN or DM. The current FDA indication or labelling for Watchman requires [id number] score of 2 or higher, and perhaps more importantly the current National Coverage Determination (NCD) from CMS/Medicare requires a [id number] score of 3 or higher for the insurance coverage. Thus, she does not meet CMS/Medicare NCD g uidelines. I had a detailed discussion with Ms. Rollins regarding my evaluation and recommendations. After our discussion, Ms. Rollins expressed her understanding and I answered all her questions to her apparent satisfaction. PLAN AND RECOMMENDATIONS: Presently Ms. Rollins does not meet required criteria for Watchman left atrial appendage closure device per CMS/Medicare coverage guidelines. Sherley He MD 08/19/2022 Medical Decision Making: Problems: Moderate: New problem with uncertain prognosis Data: Unique source(s) for external note(s) reviewed: 3+ Unique test result(s) reviewed: 3+ Unique test(s) ordered: 1 Risk: Moderate: Moderate risk from testing/treatment, Drug management and Decision on minor surgery w/ risk factors Medical Decision Making Level: 4 - Moderate documented in this encounterBar[facility]08-12-2022 Telephone encounter Note * Telephone Encounter - Flavio Babin RN - 03/15/2022 2:42 PM EDT Faxed lab order into [facility] lab as requested and fax confirmation was received. [facility]08-12-2022 Miscellaneous Notes* Telephone Encounter - Flavio Babin RN - 03/15/2022 2:42 PM EDT Faxed lab order into [facility] lab as requested and fax confirmation was received. * Telephone Encounter - Flavio Babin RN - 03/14/2022 2:23 PM EDT Patient's daughter called in and asked if most recent lab results could be interpreted and recommnedation from provider given. This nurse faxed lab results to Dr Hinkle for review. Patient's daughteralso informed this nurse that patient has had progressive worsening exertional SOB thru out the week along with radiating chest pain at rest. The chest pain goes from chest into patient's back. Message sent to provider for review. documented in this encounterOS[facility] Telephone encounter Note* Telephone Encounter - Flavio Babin RN - 03/14/2022 2:23 PM EDT Patient's daughter called in and asked if most recent lab results could be interpreted and recommnedation from provider given. This nurse faxed lab results to Dr Hinkle for review. Patient's daughteralso informed this nurse that patient has had progressive worsening exertional SOB thru out the week along with radiating chest pain at rest. The chest pain goes from chest into patient's back. Message sent to provider for review. [facility]08-05-2022 Telephone encounter Note* Telephone Encounter - Flavio Babin RN - 03/08/2022 1:39 PM EDT This nurse faxed lab order to [facility] in [facility] per patient's and daughter's request. Fax confirmation received and patient and daughter aware that order has been faxed. [facility]08-05-2022 Miscellaneous Notes* Telephone Encounter - Flavio Babin RN - 03/08/2022 1:39 PM EDT This nurse faxed lab order to [facility] in [facility] per patient's and daughter's request. Fax confirmation received and patient and daughter aware that order has been faxed. documented in this encounterOSHol[facility]-2022 Instructions* Patient Instructions* Carlos Guzmán MD - 03/04/2022 2:18 PM EDT Increase Metoprolol to 100 mg BID We have ordered blood work documented in this encounterOSHolmes [facility]08-01-2022 History of Present illness Narrative* Luis Miguel Hinkle MD - 03/04/2022 1:[address] Osmin Mae MD [address] [place] [id number] Thank you for your referral of Ms. Tanya Rollins to the [facility] at [facility] on 03/04/2022 for evaluation of atrial fibrillation. ASSESSMENT In summary, Ms. Tanya Rollins is a 71 y.o. female with 1. Symptomatic Persistent Atrial Fibrillation: First Dx 2017 following seizures. Resolved but then recurrence in October 2021. 100% burden by 7 day monitor. Not on anticoagulation due to vWB disease. 2. Von Willebrand disease with extensive hx of mucucutaneous bleeding. Bleeding episodes < 1 permonth. Last transfusion was 1977. 3. Hypertension 4. [...] 5. TSH Follow up in 3 months. Luis Miguel Hinkle MD Chief Recordist, PGY-7 Attending Physician Note I saw and personally examined the patient on 03/04/2022 with the fellow in general cardiology clinic.We discussed the symptoms and exam findings, results [...] of recent outside echocardiogram. Carlos Guzmán MD Data Entry Specialist of Clinical Medicine [facility] Heart Failure [facility] Transplantation [address], [address] [place] [address] [email or web address] Prior history of afib in 2018 [...] month. Last need for transfusion was 1977. MEDICAL/SOCIAL/FAMILY/ALLERGY/MED HISTORY: Past medical, surgical, family, and social [...] C) Resp 16 Ht 1.626 m (5' 4) Wt 60.1 kg (132 lb 6.4 oz) SpO2 98% BMI 22.73 kg/m Smoking Status Former Smoker Body surface area is 1.64 meters squared. General:Well-developed, well-nourished, not in acute distress. HEENT: no goiter, No xanthelasma. The carotid pulses are normal; no carotid bruits Heart: The PMI is non displaced; S1 and S2 are normal. Regular in rate and rhythm, no murmurs, rubsor gallops. Normal JVP. Extremeties: Warm, no pitting edema Lungs: clear to auscultation and percussion. Abdomen: soft,non tender, normal bowel sounds, Neuro: non-focal, normal speech, no facial asymmetry. MSK: no synovitis, Skin: no pathologic rash LABS AND TEST RESULTS No results found for: CHOLESTEROL, TRIG, HDL, LDLCALC, LDLDIRECT No results found for: HGBA1C ECG 02/21/22: Afib, cannot exclude septal infarct, LAFB * Archana Suero LPN - 03/04/2022 1:30 PM EDT Patient verified name and date of with this [facility]N [employer]UCKER. documented in this encounterCommunity [facility]07-[facility]-2022 Note* Nursing Notes - Jodee Vora RN - 02/21/2022 4:13 PM EDT This RN went over discharge paperwork with the patient and her spouse. All questions and concerns were addressed. She did not have an IV to remove. She left with all of her belongings. She refused a wheelchair and was capable of walking out to the lobby with her spouse. [facility]07-21-2022 Miscellaneous Notes* Nursing Notes - Jodee Vora RN - 02/21/2022 4:13 PM EDT This RN went over discharge paperwork with the patient and her spouse. All questions and concerns were addressed. She did not have an IV to remove. She left with all of her belongings. She refused a wheelchair and was capable of walking out to the lobby with her spouse. * CDU Provider Note - Arnav Farah MD - 02/21/2022 12:07 PM EDT This patient was appropriately risk stratified for [...] see in follow up, our CDU clinical cyanide case hardener will assist the patient with their follow up needs. Clinical Impression: Epistaxis Prior medical records were reviewed. All pertinent labs and imaging results were reviewed and interpreted by me. The patient was updated regarding findings, and was re-assessed during ED stay. On 02/20/2022 I saw and evaluated the patient with ABHI. I provided a substantive portion of the carefor this patient. I personally performed all aspects of the medical decision making for this encounter. I have reviewed and verified this with the ABHI so that it accurately reflects our care. * Nursing Notes - Yared Polanco RN - 02/21/2022 5:10 AM EDT txt to Cuca QUEZADA pt is in A-fib, she says she has a history of this, do not see it in our charting, no previous EKG to compare, takes metropolol though Plan cont monitor hr 74 * Nursing Notes - Yared Polanco RN - 02/21/2022 4:48 AM EDT Pt refusing IV insertion * CDU Provider Note - Cuca Valerio PA-C - 02/21/2022 2:46 AM EDT DEPARTMENT OF EMERGENCY MEDICINE CHIEF COMPLAINT Chief Complaint Patient presents with Epistaxis With bleeding disorder HISTORY OF PRESENT ILLNESS Tanya Rollins is a 71 y.o. female was appropriately risk stratified for observation level of care and was placed on the [facility] Epistaxis protocol. Symptoms started with PMH arthritis, [...] (Chronic, unchanged). Negative for abdominal pain, blood instool, constipation, heartburn, melena, nausea and vomiting. Genitourinary: [...] Date Arthritis 2002 Bronchitis C. difficile diarrhea 2005 Cervix abnormality 1983 Pre-cancereous cells - laser surgery Demyelinating disease 2004 Essential hypertension, benign 3459-1164 Exposure to TB 1975 Fibromyalgia 2006 GERD (gastroesophageal reflux disease) H/O bladder infections Hepatitis C 2003 History of blood transfusion Irritable bowel syndrome 1989 Measles 1956 Mumps 1956 Nasal bleeding Osteoarthritis 2006 Osteoarthritis 2006 Osteopenia 2006 Post-nasal drip Rheumatoid arthritis 2012 Seizures Sleep concern 2008 idiopathic somnolence Tendency toward bleeding easily With surgery Von Willebrand disease [place] II Whooping cough 1956 SURGICAL HISTORY Past [...] (Oral) Resp 20 Ht 1.626 m (5' 4) SpO2 99% BMI 22.97 kg/m Smoking Status Former Smoker Physical Exam Vitals and nursing note reviewed. Constitutional: General: She is not in acute distress. Appearance: She is well-developed. She is not diaphoretic. HENT: Head: Normocephalic. Contusion present. No abrasion, right periorbital erythema or left periorbitalerythema. Jaw: There is normal jaw occlusion. No [...] epistaxis, septal hematoma or occlusion. Mouth/Throat: Lips: [place]. Tongue: No lesions. Tongue does not deviate [...] and neck supple. No torticollis. Muscular tenderness present.No pain with movement or spinous process tenderness. [...] consideration of case management consultation. The patient doesneed case management based on my assessment. The [...] Auto 2.45 1.16 - 3.51 K/uL Abs [place] Auto 1.03 (H) 0.22 - 0.87 K/uL [...] to the interventions was unchanged, vitals stable, afebrile,resting in bed, no focal neurologic deficits on exam, no signs of epistaxis. While in the EDOU we will continue to check, monitor and reassess patient and alter our plan as clinically appropriate. This is a non-shared visit on 02/21/2022. Electronically signed by: Cuca Valerio PA-C, 02/21/2022 2:46 AM documented in this encounterCommunity Memorial Hospital07-21-2022 NoteAcute Coronary Syndrome (ACS): Initial Evaluation and Management: [email or web address] [facility]07-21-2022 Note* CDU Provider Note - Arnav Farah MD - 02/21/2022 12:07 PM EDT This patient was appropriately risk stratified for [...] see in follow up, our CDU clinical cyanide case hardener will assist the patient with their follow up needs. Clinical Impression: Epistaxis Prior medical records were reviewed. All pertinent labs and imaging results were reviewed and interpreted by me. The patient was updated regarding findings, and was re-assessed during ED stay. On 02/20/2022 I saw and evaluated the patient with ABHI. I provided a substantive portion of the carefor this patient. I personally performed all aspects of the medical decision making for this encounter. I have reviewed and verified this with the ABHI so that it accurately reflects our care. [facility] Work Phone: 1(880) 384-373207-21-2022 History of Present illness Narrative* Bettina Su PT - 02/21/2022 8:51 AM EDT Physical Therapy Attempt Note 02/21/2022 PT Therapy Completed: Screen PT order canceled due to no skilled needs at this time. Please re-consult as needed. Bettina Su PT Time In: 850 Time Out: 850 Total Visit Time: 0 minutes Total Treatment Time (skilled, billable minutes): 0 minutes * Analilia Sifuentes RN - 02/21/2022 7:46 AM EDT Admission screening complete. No needs identified. Place CM consult order if needs arise RN CM will monitor for PT rec's PCP f/u added to AVS Place CM consult order if needs arise Addendum on 02/21/22 @ 1242 Physical Therapy Attempt Note 02/21/2022 PT Therapy Completed: Screen PT order canceled due to no skilled needs at this time. Please re-consult as needed. Analilia TABARES RN Clinical Navigation Teacher [phone] Available on secure chat. Weekend Navigation Teacher and Social Work Contacts [facility]: CM: [phone] / SW: [phone] Lombardo: CM: [phone] / SW: [phone] Amando: CM: [phone] / SW [phone] Alvaro BARRON (PCU/MICU only): CM: [phone] / SW: [phone] documented in this encounterU [facility] Consult note* Aaronkamla Derek - 02/21/2022 8:32 AM EDTAssociated Order(s): IP CONSULT TO HEMATOLOGY HEMATOLOGY CONSULT INITIAL EVALUATION IDENTIFICATION PATIENT: Tanya Rollins ADMIT DATE: 02/20/2022 TIME OF EVALUATION: 02/21/2022 5:05 PM HOSPITAL STAY: LOS: 0 days CONSULTING SERVICE: [facility] REASON FOR CONSULTATION: epistaxis with Von Willebrand disease HISTORY OF PRESENT ILLNESS Tanya Rollins is a 71 y.o. female with a PMH of HTN, seizures on lamotrigine, Afib (December 2021) not onanticoag, type 2N vWD who presented with traumatic epistaxis. Ms. Rollins has had an extensive bleeding history. She has had breast biopsy, pregnancies complicatedby bleeding that was controlled via packed RBC transfusion. She has had heavy menstrual bleeding requiring D&C and ultimately hysterectomy. Her cholecystectomy in 1987 was complicated with internal bleeding (according to pt) controlled with stimate (factor VIII increased by 40% on 1st dose and 20% on 2nd dose) and factor VIII. Bleeding from procedures (tubal ligation, dental extractions, after 1987 were controlled with cryoprecipitate.Outside of procedures, she has not required hospitalization or treatment for minor bleeding. Stimate has not been helpful in controlling her bleeding in the past. She had a workup for vWD in 2003 at the [facility] that indicated type 2N vWD. She [...] again for around 5 minutes. [facility]. [facility], she has had no further bleeding. She denies any spontaneous bleeds or major bleeding from minor cuts. All bleeding episodes so far have been complications of menstruation, , or surgical/procedural interventions. She reportsthat her daughter also has Von Willebrand that is being controlled with Stimate. She is unaware of anyone else in the family with bleeding or clotting disorders (some family members have not been tested). PAST MEDICAL, SURGICAL, FAMILY, and SOCIAL HISTORY Past Medical History: Diagnosis Date Arthritis 2003 Bronchitis C. difficile diarrhea 2005 Cervix abnormality 1983 Pre-cancereous cells - laser surgery Demyelinating disease 2004 Essential hypertension, benign 4136-6217 Exposure to TB 1975 Fibromyalgia 2006 GERD (gastroesophageal reflux disease) H/O bladder infections Hepatitis C 2004 History of blood transfusion Irritable bowel syndrome 1989 Measles 1956 Mumps 1956 Nasal bleeding Osteoarthritis 2006 Osteoarthritis 2006 Osteopenia 2006 Post-nasal drip Rheumatoid arthritis 2012 Seizures Sleep concern 2009 idiopathic somnolence Tendency toward bleeding easily With surgery Von Willebrand disease [place] II Whooping cough 1956 Past Surgical History: [...] display Pathology None ASSESSMENT AND RECOMMENDATIONS Tanya Rollins is a 71 y.o. female with a PMH of HTN, seizures on lamotrigine, Afib (December 2021) not onanticoag, type 2N vWD who presents with traumatic epistaxis. Patient had a re-bleed yesterday but bleeding stopped spontaneously. Patient has had no bleeding inthe past 24 hours. Hgb is stable at 12.4 with PT and PTT within normal limits. In the past, patienthas not needed hospitalization for bleeding from minor [...] the heading IM Consult Serv Hematology on [employer]. Thank you for allowing us to participate in the care of Tanya Rollins. Associated attestation - Whit Newton MD - 02/21/2022 11:27 PM EDT I saw and examined the patient 02/21/2022 with the resident/fellow. Labs, radiology, and other testswere reviewed. The plan was developed mutually and discussed with the team. The attached note has been reviewed. I directed the patient's consultation and agree with the recommendation as documented.Patient and/or family are aware of plan. Tanya Rollins is a 71 y.o. 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 No bleeding x 24 hours without intervention. Hgb stable. No acute intervention. Will obtain VWF battery prior to discharge. Follow-up with Dr. Bender as scheduled. Whit Newton MD / [id number] [facility]07-21-2022 Consult note* Monalisa Derek - 02/21/2022 8:32 AM EDTAssociated Order(s): IP CONSULT TO HEMATOLOGY HEMATOLOGY CONSULT INITIAL EVALUATION IDENTIFICATION PATIENT: Tanya Rollins ADMIT DATE: 02/20/2022 TIME OF EVALUATION: 02/21/2022 5:05 PM HOSPITAL STAY: LOS: 0 days CONSULTING SERVICE: [facility] REASON FOR CONSULTATION: epistaxis with Von Willebrand disease HISTORY OF PRESENT ILLNESS Tanya Rollins is a 71 y.o. female with a PMH of HTN, seizures on lamotrigine, Afib (December 2021) not onanticoag, type 2N vWD who presented with traumatic epistaxis. Ms. Rollins has had an extensive bleeding history. She has had breast biopsy, pregnancies complicatedby bleeding that was controlled via packed RBC transfusion. She has had heavy menstrual bleeding requiring D&C and ultimately hysterectomy. Her cholecystectomy in 1987 was complicated with internal bleeding (according to pt) controlled with stimate (factor VIII increased by 40% on 1st dose and 20% on 2nd dose) and factor VIII. Bleeding from procedures (tubal ligation, dental extractions, after 1987 were controlled with cryoprecipitate.Outside of procedures, she has not required hospitalization or treatment for minor bleeding. Stimate has not been helpful in controlling her bleeding in the past. She had a workup for vWD in 2003 at the [facility] that indicated type 2N vWD. She [...] again for around 5 minutes. [facility]. Since she has been at [facility], she has had no further bleeding. She denies any spontaneous bleeds or major bleeding from minor cuts. All bleeding episodes so far have been complications of menstruation, , or surgical/procedural interventions. She reportsthat her daughter also has Von Willebrand that is being controlled with Stimate. She is unaware of anyone else in the family with bleeding or clotting disorders (some family members have not been tested). PAST MEDICAL, SURGICAL, FAMILY, and SOCIAL HISTORY Past Medical History: Diagnosis Date Arthritis 2003 Bronchitis C. difficile diarrhea 2005 Cervix abnormality 1983 Pre-cancereous cells - laser surgery Demyelinating disease 2004 Essential hypertension, benign 5057-5510 Exposure to TB 1975 Fibromyalgia 2006 GERD (gastroesophageal reflux disease) H/O bladder infections Hepatitis C 2004 History of blood transfusion Irritable bowel syndrome 1989 Measles 1956 Mumps 1957 Nasal bleeding Osteoarthritis 2006 Osteoarthritis 2006 Osteopenia 2006 Post-nasal drip Rheumatoid arthritis 2012 Seizures Sleep concern 2009 idiopathic somnolence Tendency toward bleeding easily With surgery Von Willebrand disease [place] II Whooping cough 1956 Past Surgical History: [...] display Pathology None ASSESSMENT AND RECOMMENDATIONS Tanya Rollins is a 71 y.o. female with a PMH of HTN, seizures on lamotrigine, Afib (December 2021) not onanticoag, type 2N vWD who presents with traumatic epistaxis. Patient had a re-bleed yesterday but bleeding stopped spontaneously. Patient has had no bleeding inthe past 24 hours. Hgb is stable at 12.4 with PT and PTT within normal limits. In the past, patienthas not needed hospitalization for bleeding from minor [...] the heading IM Consult Serv Hematology on [employer]. Thank you for allowing us to participate in the care of Tanya Rollins. Associated attestation - Whit Newton MD - 02/21/2022 11:27 PM EDT I saw and examined the patient 02/21/2022 with the resident/fellow. Labs, radiology, and other testswere reviewed. The plan was developed mutually and discussed with the team. The attached note has been reviewed. I directed the patient's consultation and agree with the recommendation as documented.Patient and/or family are aware of plan. Tanya Rollins is a 71 y.o. 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 No bleeding x 24 hours without intervention. Hgb stable. No acute intervention. Will obtain VWF battery prior to discharge. Follow-up with Dr. Bender as scheduled. Whit Newton MD / [id number] documented in this encounterOSU [facility]22 Note* Nursing Notes - Yared Polanco RN - 02/21/2022 5:10 AM EDT txt to Cuca QUEZADA pt is in A-fib, she says she has a history of this, do not see it in our charting, no previous EKG to compare, takes metropolol though Plan cont monitor hr 74 [facility]07-21-2022 Note* Nursing Notes - Yared Polanco RN - 02/21/2022 4:48 AM EDT Pt refusing IV insertion [facility]07-21-20[facility] Note* CDU Provider Note - Cuca Valerio PA-C - 02/21/2022 2:46 AM EDT DEPARTMENT OF EMERGENCY MEDICINE CHIEF COMPLAINT Chief Complaint Patient presents with Epistaxis With bleeding disorder HISTORY OF PRESENT ILLNESS Tanya Rollins is a 71 y.o. female was appropriately risk stratified for observation level of care and was placed on the [facility] Epistaxis protocol. Symptoms started with PMH arthritis, [...] (Chronic, unchanged). Negative for abdominal pain, blood instool, constipation, heartburn, melena, nausea and vomiting. Genitourinary: [...] surgery Demyelinating disease 2004 Essential hypertension, benign 6730-2818 Exposure to TB 1975 Fibromyalgia 2006 GERD (gastroesophageal reflux disease) H/O bladder infections Hepatitis C 2004 History of blood transfusion Irritable bowel syndrome 1990 Measles 1956 Mumps 1956 Nasal bleeding Osteoarthritis 2006 Osteoarthritis 2006 Osteopenia 2006 Post-nasal drip Rheumatoid arthritis 2012 Seizures Sleep concern 2008 idiopathic somnolence Tendency toward bleeding easily With surgery Von Willebrand disease [place] II Whooping cough 1956 SURGICAL HISTORY Past [...] (Oral) Resp 20 Ht 1.626 m (5' 4) SpO2 99% BMI 22.97 kg/m Smoking Status Former Smoker Physical Exam Vitals and nursing note reviewed. Constitutional: General: She is not in acute distress. Appearance: She is well-developed. She is not diaphoretic. HENT: Head: Normocephalic. Contusion present. No abrasion, right periorbital erythema or left periorbitalerythema. Jaw: There is normal jaw occlusion. No [...] epistaxis, septal hematoma or occlusion. Mouth/Throat: Lips: [place]. Tongue: No lesions. Tongue does not deviate [...] and neck supple. No torticollis. Muscular tenderness present.No pain with movement or spinous process tenderness. [...] consideration of case management consultation. The patient doesneed case management based on my assessment. The [...] Auto 2.45 1.16 - 3.51 K/uL Abs [place] Auto 1.03 (H) 0.22 - 0.87 K/uL [...] to the interventions was unchanged, vitals stable, afebrile,resting in bed, no focal neurologic deficits on exam, no signs of epistaxis. While in the EDOU we will continue to check, monitor and reassess patient and alter our plan as clinically appropriate. This is a non-shared visit on 02/21/2022. Electronically signed by: Cuca Valerio PA-C, 02/21/2022 2:46 AM [facility]07-20-2022 Physician Emergency department Note* Andreea Vernon MD - 02/20/2022 11:30 PM EDT ED ATTENDING NOTE CC: Epistaxis (With bleeding disorder) HPI: Tanya Rollins is a 71 y.o. female with a h/o HTN, GERD, IBS, osteoarthritis, RA, seizure, vWB, presents with epistaxis. Pt hit face against doorframe 6 days ago, had bilateral bruising, and nasaldischarge at that time. Today with an epistaxis for 5 minutes from right nares. ROS Reviewed previous epistaxis and facial bruising and negative except as stated in the HPI Exam: Vital signs were reviewed. BP (!) 163/103 Pulse 85 Temp 97.4 F (36.3 C) (Oral) Resp 20 Ht 1.626 m (5' 4) SpO2 99% BMI 22.97 kg/m Smoking Status [...] still occur. Andreea Vernon MD 02/21/22 0417 [facility] Work Phone: 1(538) 123-440807-20-2022 Emergency department Note* Andreea Vernon MD - 02/20/2022 11:30 PM EDT ED ATTENDING NOTE CC: Epistaxis (With bleeding disorder) HPI: Tanya Rollins is a 71 y.o. female with a h/o HTN, GERD, IBS, osteoarthritis, RA, seizure, vWB, presents with epistaxis. Pt hit face against doorframe 6 days ago, had bilateral bruising, and nasaldischarge at that time. Today with an epistaxis for 5 minutes from right nares. ROS Reviewed previous epistaxis and facial bruising and negative except as stated in the HPI Exam: Vital signs were reviewed. BP (!) 163/103 Pulse 85 Temp 97.4 F (36.3 C) (Oral) Resp 20 Ht 1.626 m (5' 4) SpO2 99% BMI 22.97 kg/m Smoking Status [...] still occur. Andreea Vernon MD 02/21/22 0417 * Natan Oliveira MD - 02/20/2022 9:47 PM EDT dEPARTMENT of Emergency Medicine CHIEF COMPLAINT Epistaxis (With bleeding disorder) CHUCKIE Rollins is a 71 y.o. female with a [...] Date Arthritis 2003 Bronchitis C. difficile diarrhea 2005 Cervix abnormality 1983 Pre-cancereous cells - laser surgery Demyelinating disease 2004 Essential hypertension, benign 1792-0955 Exposure to TB 1975 Fibromyalgia 2006 GERD (gastroesophageal reflux disease) H/O bladder infections Hepatitis C 2004 History of blood transfusion Irritable bowel syndrome 1990 Measles 1956 Mumps 1956 Nasal bleeding Osteoarthritis 2006 Osteoarthritis 2006 Osteopenia 2006 Post-nasal drip Rheumatoid arthritis 2012 Seizures Sleep concern 2009 idiopathic somnolence Tendency toward bleeding easily With surgery Von Willebrand disease [place] II Whooping cough 1956 SURGICAL HISTORY Past [...] (Oral) Resp 20 Ht 1.626 m (5' 4) SpO2 100% BMI22.97 kg/m Smoking Status Former Smoker Physical Exam [...] ED COURSE & MEDICAL DECISION MAKING Tanya Rollins is a 71 year old female with history of delayed bleeding and Von Willebrand Disease presenting today for a 5 minute episode of epistaxis from right nares accompanied by ecchymosis below bilateral orbits, and reported clear rhinorrhea that has resolved. She is not currently bleeding andno clot could be visualized on visualization of anterior nares. Differential diagnosis includes: Epistaxis due to dislodged clot, posterior epistaxis, anterior epistaxis, basilar skull fracture. Her coagulation factors are all within normal limits. She is not currently anemic, and her clottingfactors are all within normal limits. With concern for possible basilar skull fracture, a CT face w/o contrast will be performed and hematology consult for further recommendations. Natan Oliveira MD Resident 02/20/22 4051 * Ariana Gold RN - 02/20/2022 7:35 PM EDT Bed: C083 Expected date: Expected time: Means of arrival: Comments: triage * Audrey March RN - 02/20/2022 1:57 PM EDT Pt arrives with cc of fall on [...] significant bruising on face. documented in this [facility]20-[facility]22 Physician Emergency department Note* Natan Oliveira MD - 02/20/2022 9:47 PM EDT dEPARTMENT of Emergency Medicine CHIEF COMPLAINT Epistaxis (With bleeding disorder) CHUCKIE Rollins is a 71 y.o. female with a [...] surgery Demyelinating disease 2004 Essential hypertension, benign [id number] Exposure to TB 1975 Fibromyalgia 2006 GERD (gastroesophageal reflux disease) H/O bladder infections Hepatitis C 2004 History of blood transfusion Irritable bowel syndrome 1989 Measles 1956 Mumps 1956 Nasal bleeding Osteoarthritis 2006 Osteoarthritis 2006 Osteopenia 2006 Post-nasal drip Rheumatoid arthritis 2011 Seizures Sleep concern 2008 idiopathic somnolence Tendency toward bleeding easily With surgery Von Willebrand disease [place] II Whooping cough 1956 SURGICAL HISTORY Past [...] (Oral) Resp 20 Ht 1.626 m (5' 4) SpO2 100% BMI22.97 kg/m Smoking Status Former Smoker Physical Exam [...] ED COURSE & MEDICAL DECISION MAKING Tanya Rollins is a 71 year old female with history of delayed bleeding and Von Willebrand Disease presenting today for a 5 minute episode of epistaxis from right nares accompanied by ecchymosis below bilateral orbits, and reported clear rhinorrhea that has resolved. She is not currently bleeding andno clot could be visualized on visualization of anterior nares. Differential diagnosis includes: Epistaxis due to dislodged clot, posterior epistaxis, anterior epistaxis, basilar skull fracture. Her coagulation factors are all within normal limits. She is not currently anemic, and her clottingfactors are all within normal limits. With concern for possible basilar skull fracture, a CT face w/o contrast will be performed and hematology consult for further recommendations. Natan Oliveira MD Resident 02/20/22 4990 [facility] Work Phone: 1(470) 508-219307-20-2022 Emergency department Note* Ariana Gold RN - 02/20/2022 7:35 PM EDT Bed: C083 Expected date: Expected time: Means of arrival: Comments: triage [facility]07-20-2022 Emergency department Note* Audrey March RN - 02/20/2022 1:57 PM EDT Pt arrives with cc of fall on [...] ED. Pt has significant bruising on face. [facility]07-14-2022 History of Present illness Narrative* Joyce Yu RN - 02/14/2022 10:30 AM EDT Pt arrived for infed * Bettina Delgado RN - 02/14/2022 10:30 AM EDT 1350-Patient completed treatment and aware of next appointment [facility]ructions* Patient Instructions* Nazia Sands RN - 01/03/2022 2:06 PM EDT RTO 1 year FRIDAY [facility] Provider: Dr. Osmin Mae Primary Nurses: Pj IMPORTANT: SURGICAL CLEARANCE! We MUST receive 2 WEEKS notice prior to any dental procedures, births, surgeries, and other procedures for Hematology clearance from our office. If you have not been seen by our office in over a yearwe cannot legally provide clearance. Failure to provide sufficient notice of at least two weeks prior may result in your surgery or procedure being delayed. Don't wait, communicate!! Call [phone] and let our office know about what the procedure is for and where to send the clearance to as soonas you are aware. Thank you!!! Medication refills Please allow 1 week for all medication refills. You may request refills via [employer] or by calling [phone]. Paperwork Please allow 2 weeks to complete disability, FMLA, and insurance paperwork. Please clarify what to do once they are completed, including any fax numbers or addresses needed. [facility] is a secure way to get access to your labs online. Once you're online, you may need to send a message to the office to release results so that you can review the results of your blood tests. For non-emergent concerns, please send us a [employer] message but describe your issue fully. As an example, tell us how long you've had the symptom, what makes it better or worse, what you've done for it already) and one of our nurses or nurse practitioners will respond candice. For questions or concerns regarding [employer] access or technical dificulties, please call [phone] or toll free at . Appointment's/ No show visits If you arrive late to your scheduled appointment, you may be asked to reschedule your visit. Pleasecall [phone] at least 24 hours in advance if you are not able to make it to your scheduled visit. If you have three no show visit's within one year, you will be discharged from our practice. [facility] History of Present illness Narrative* Osmin Mae MD - 01/03/2022 2:00 PM EDT Hematology Clinic Hemostasis and Thrombosis ID: 71 yo F with von Willebrand Type 2N and atrial fibrillation not on anticoagulation/antiplatelettherapy. Patient with extensive history of severe mucocutaneous bleeding characterized by immediateand delay bleeding. DISEASE HISTORY: 1. Type 2N [...] wounds (+) <10 minutes *Surgeries/Procedures: -Breast Biposy () --> Bled up ot 6 months (controlled [...] pads every 2H). Improved while on OCPs (beforepregnancies). Worsened in between pregnancies and progressively after [...] FVIII=12-32% -2003 (as per notes) --> FVIII=32%, dSCb=062%, Ristocetin=83%. Normal Multimer. Abnormal PFA-100. -2003 ([facility]) --> sSBw=994, Fwzlqvewyx=422, FVIII=37%. Normal PT and Prolonged PTT=36 (Ref<34).Normal Multimer. At [employer]: 2N Binding <6 (Normal >70%) in the setting of FVIII=26%, oWAx=060 -2019: Normal PT and PTT, normal Fibrinogen. FVIII=23%, hKMv=217, vWActivity=94% 2. Atrial Fibrillation (2017), unclear, on betablocker terapy 3. Hepatitis C, treated with IFN and ribavirin (2003) 4. Psoriatic Arthritis (2016), preciously on etanercept and MTX 5. Unclear seizure disorder (2015) vs. Idiopathic somnolence, off medication. 6. HTN 7. COPD by PFTs (2013) INTERVAL HISTORY: - Past Medical History: Diagnosis Date Arthritis 2003 Bronchitis C. 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 Essential hypertension, benign 0821-7533 Exposure to TB 1975 Fibromyalgia 2006 GERD (gastroesophageal reflux disease) H/O bladder infections Hepatitis C 2004 History of blood transfusion Irritable bowel syndrome 1989 Measles 1956 Mumps 1956 Nasal bleeding Osteoarthritis 2006 Osteoarthritis 2006 Osteopenia 2006 Post-nasal drip Rheumatoid arthritis 2012 Seizures Sleep concern 2008 idiopathic somnolence Tendency toward bleeding easily With surgery Von Willebrand disease [place] II Whooping cough 1956 Past Surgical History: [...] of severe mucocutaneous bleeding characterized by immediate anddelay bleeding. Patient has historically normal/elevated levels of [...] as well as to characterize better her daughter's.At this point, will cover patient as needed with rFVIII products as seems to be where major defect i s and as has essentially normal vWD levels. [...] VWF Gene, Next-Generation Sequencing, Varies Panel from [facility] (code: [id number]), as presumable has more a non-classical type 2N disease. Osmin Mae MD Hematology, Hemostasis and Thrombosis * ZACH Kothari - 01/03/2022 2:00 PM EDT Worker met with pt for comprehensive clinic [...] No additional needs reported. [facility]* Diagnosis Onset Date Resolution Status Chest pain of uncertain etiology acute Exertional dyspnea acute History of atrial fibrillation acute Von Willebrand disease [facility] Work Phone: Evaluation note* Diagnosis Onset Date Resolution Status Exertional dyspnea acute History of atrial fibrillation acute Von Willebrand disease chron ic Chest pain of uncertain etiology resolved [facility] [place] Work Phone: Evaluation note* Diagnosis Onset Date Resolution Status Exertional dyspnea acute Von Willebrand disease chron ic Chest pain of uncertain etiology resolved Essential hypertension acute Paroxysmal atrial fibrillation acute Von Willebrand disease chron ic Nicotine dependence, cigarettes, in remission acute SOB (shortness of breath) ac [place] [facility] [place] Work Phone: Evaluation note* Diagnosis Hemorrhagic diathesis- Primary Unspecified hemorrhagic conditions Encounter for screening for other viral diseases [facility] Diagnosis Iron deficiency anemia due to chronic blood loss- Primary Iron deficiency anemia secondary to blood loss (chronic) [facility] Diagnosis Epistaxis Hx of von Willebrand's disease Personal history of diseases of blood and blood-forming organs [facility] Diagnosis Onset Date Resolution Status Exertional dyspnea acute Von Willebrand disease chron ic Chest pain of uncertain etiology resolved Essential hypertension acute Paroxysmal atrial fibrillation acute Von Willebrand disease chron ic Nicotine dependence, cigarettes, in remission acute SOB (shortness of breath) [place] SOB (shortness of breath) ac [facility] Work Phone: Evaluation note* Diagnosis Persistent atrial fibrillation- Primary Atrial fibrillation Von Willebrand disease Von Willebrand's disease Essential hypertension, benign Dyspnea, unspecified type Dyspnea on exertion- Primary Other dyspnea and respiratory abnormality [facility] Diagnosis Onset Date Resolution Status Essential hypertension acute Paroxysmal atrial fibrillation acute Von Willebrand disease chron ic Nicotine dependence, cigarettes, in remission acute SOB (shortness of breath) [place] SOB (shortness of breath) [place] Anxiety chronic Epilepsy chronic Fatigue chronic Mild cognitive impairment with memory loss chronic Pseudoseizure chronic [facility] [place] Work Phone: Evaluation note* Diagnosis Onset Date Resolution Status SOB (shortness of breath) [place] Anxiety chronic Epilepsy chronic Fatigue chronic Mild cognitive impairment with memory loss chronic Pseudoseizure chronic Fatigue chronic Fatigue chronic [facility] Work Phone: Evaluation note* Diagnosis Onset Date Resolution Status SOB (shortness of breath) [place] Anxiety chronic Epilepsy chronic Fatigue chronic Mild cognitive impairment with memory loss chronic Pseudoseizure chronic Fatigue chronic Fatigue chronic Essential hypertension acute Paroxysmal atrial fibrillation acute Von Willebrand disease chron [facility] Work Phone: Evaluation note* Diagnosis Onset Date Resolution Status Anxiety chronic Epilepsy chronic Fatigue chronic Mild cognitive impairment with memory loss chronic Pseudoseizure chronic Fatigue chronic Fatigue chronic Essential hypertension acute Paroxysmal atrial fibrillation acute Von Willebrand disease chron ic Fatigue [facility] Work Phone: Evaluation note* Diagnosis Onset Date Resolution Status Fatigue chronic Fatigue chronic Essential hypertension acute Paroxysmal atrial fibrillation acute Von Willebrand disease chron ic Fatigue [facility] Work Phone: Evaluation note* Diagnosis Onset Date Resolution Status Fatigue chronic Essential hypertension acute Paroxysmal atrial fibrillation acute Von Willebrand disease chron ic Fatigue chronic Fatigue [facility] Work Phone: Evaluation note* Diagnosis Persistent atrial fibrillation (HCC)- Primary Atrial fibrillation At risk for stroke Other specified personal history presenting hazards to health At risk for bleeding associated with anticoagulants Von Willebrand's disease [facility] Diagnosis Onset Date Resolution Status Fatigue chronic Dementia acute Anxiety chronic Epilepsy chronic Fatigue chronic Pseudoseizure [facility] Work Phone: Evaluation note* Diagnosis Onset Date Resolution Status Fatigue chronic Dementia acute Anxiety chronic Epilepsy chronic Fatigue chronic Pseudoseizure chronic Chest pain acute Essential hypertension acute Paroxysmal atrial fibrillation acute Von Willebrand disease chron [facility] Work Phone: Evaluation note* Diagnosis Onset Date Resolution Status Dementia acute Anxiety chronic Epilepsy chronic Fatigue chronic Pseudoseizure chronic Chest pain acute Essential hypertension acute Paroxysmal atrial fibrillation acute Von Willebrand disease chron ic Fatigue chronic Fatigue [facility] Work Phone: Evaluation note* Diagnosis Onset Date Resolution Status Dementia acute Anxiety chronic Epilepsy chronic Fatigue chronic Pseudoseizure chronic Chest pain acute Essential hypertension acute Paroxysmal atrial fibrillation acute Von Willebrand disease chron ic Fatigue chronic Fatigue chronic Fatigue [facility] Work Phone: Evaluation note* Diagnosis Onset Date Resolution Status Fatigue chronic Fatigue chronic Fatigue chronic Hypercortisolemia acute Osteoporosis chronic Fatigue [facility] Work Phone: Evaluation note* Diagnosis Onset Date Resolution Status Fatigue chronic Fatigue chronic Hypercortisolemia acute Osteoporosis chronic Fatigue chronic Epilepsy chronic Fatigue chronic Pseudoseizure chronic [facility] [place] Work Phone: Evaluation note* Diagnosis Onset Date Resolution Status Fatigue chronic Hypercortisolemia acute Osteoporosis chronic Fatigue chronic Epilepsy chronic Fatigue chronic Pseudoseizure chronic [facility] [place] Work Phone: Evaluation note* Diagnosis Onset Date Resolution Status Fatigue chronic [facility] Work Phone: Evaluation note* Diagnosis Onset Date Resolution Status Fatigue chronic Osteoporosis [facility] Work Phone: Evaluation note* Diagnosis Persistent atrial fibrillation (HCC)- Primary Atrial fibrillation At risk for stroke Other specified personal history presenting hazards to health At risk for bleeding associated with anticoagulants Iron deficiency anemia due to chronic blood loss Iron deficiency anemia secondary to blood loss (chronic) Von Willebrand's disease (HCC) Von Willebrand's disease Epistaxis documented in this encounter [facility] Narrative No data available for this section [facility] Hospital Discharge instructions* Attachments The following attachments cannot be sent through Care Everywhere. * Nosebleeds (Telugu) [facility] Work [facility]: Hospital Discharge instructions No data available for this section [facility] Progress note No data available for this section [facility] Reason for referral (narrative)* Consultation (Routine) - New Request Specialty Diagnoses / Procedures Referred By Kinjal painter Referred To Contact Cardiovascular Medicine Diagnoses Hemorrhagic diathesis Osmin Finn MD [address] [place] [address] Referral ID Status Reason Start Date Expiration Date V isits Requested Visits Authorized [id number] New Request 01/29/2022 02/23/2023 1 1 Scheduling Instructions Please schedule this patient in the Department of Cardiology. [facility]ative)No reason for referral information availableHagerstown Medical Services Work Phone: Chief Complaint and Reason for Visit Chief Complaint Prolia CHEST PAIN Reason for Visit Chest pain of uncert ain etiology Exertional dyspnea History of atrial fibrillation Von Willebrand disease Chief Complaint Prolia CHEST PAIN CHEST PAIN CHEST PAIN Reason for Visit Chest pain of uncert ain etiology Exertional dyspnea History of atrial fibrillation Von Willebrand disease Chief Complaint Prolia CHEST PAIN CHEST PAIN CHEST PAIN CHEST PAIN CHEST PAIN SOB, HX EXERCISE INDUCED ASTHMA SOB, HX EXERCISE INDUCED ASTHMA Reason for Visit Exertional dyspnea History of atrial fibrillation Von Willebrand disease Chest pain of uncertain etiology Chief Complaint Prolia CHEST PAIN CHEST PAIN CHEST PAIN CHEST PAIN CHEST PAIN SOB, HX EXERCISE INDUCED ASTHMA SOB, HX EXERCISE INDUCED ASTHMA A-FIB/REF. AMANDA Abnormal PFT SOB Shortness of breath Reason for Visit Exertional dyspnea Von Willebrand disease Chest pain of uncertain etiology Essential hypertension Paroxysmal atrial fibrillation Von Willebrand disease Nicotine dependence, cigarettes, in remission SOB (shortness of breath) Chief Complaint CHEST PAIN CHEST PAIN CHEST PAIN CHEST PAIN CHEST PAIN SOB, HX EXERCISE INDUCED ASTHMA SOB, HX EXERCISE INDUCED ASTHMA A-FIB/REF. AMANDA Abnormal PFT SOB Shortness of breath 1 M FU Osteoporosis FALL ATRIAL FIB-FLUTTER Reason for Visit Exertional dyspnea Von Willebrand disease Chest pain of uncertain etiology Essential hypertension Paroxysmal atrial fibrillation Von Willebrand disease Nicotine dependence, cigarettes, in remission SOB (shortness of breath) SOB (shortness of breath) Chief Complaint A-FIB/REF. AMANDA Abnormal PFT SOB Shortness of breath 1 M FU Osteoporosis FALL ATRIAL FIB-FLUTTER PER CC EORDER Prolia Reason for Visit Essential hypertensi on Paroxysmal atrial fibrillation Von Willebrand disease Nicotine dependence, cigarettes, in remission SOB (shortness of breath) SOB (shortness of breath) Anxiety Epilepsy Fatigue Mild cognitive impairment with memory loss Pseudoseizure Chief Complaint SOB Shortness of breath 1 M FU Osteoporosis FALL ATRIAL FIB-FLUTTER PER CC EORDER Prolia B12 B12 inject CONFUSION Reason for Visit SOB (shortness of br eath) Anxiety Epilepsy Fatigue Mild cognitive impairment with memory loss Pseudoseizure Fatigue Fatigue Chief Complaint 1 M FU Osteoporosis FALL ATRIAL FIB-FLUTTER PER CC EORDER Prolia B12 B12 inject CONFUSION chest pain Dr. Patel request for a-fib Reason for Visit SOB (shortness of br eath) Anxiety Epilepsy Fatigue Mild cognitive impairment with memory loss Pseudoseizure Fatigue Fatigue Essential hypertension Paroxysmal atrial fibrillation Von Willebrand disease Chief Complaint FALL ATRIAL FIB-FLUTTER PER CC EORDER Prolia B12 B12 inject CONFUSION chest pain Dr. Patel request for a-fib B12 inject Reason for Visit Anxiety Epilepsy Fatigue Mild cognitive impairment with memory loss Pseudoseizure Fatigue Fatigue Essential hypertension Paroxysmal atrial fibrillation Von Willebrand disease Fatigue Chief Complaint EORDER Prolia B12 B12 inject CONFUSION chest pain Dr. Patel request for a-fib B12 inject Reason for Visit Fatigue Fatigue Essential hypertension Paroxysmal atrial fibrillation Von Willebrand disease Fatigue Chief Complaint B12 inject CONFUSION chest pain Dr. Patel request for a-fib B12 inject B12 inject EORDERS-URI- LAB AND XRAY Reason for Visit Fatigue Essential hypertension Paroxysmal atrial fibrillation Von Willebrand disease Fatigue Fatigue Chief Complaint B12 inject EORDERS-URI- LAB AND XRAY FOLLOW UP Prolia Reason for Visit Fatigue Dementia Anxiety Epilepsy Fatigue Pseudoseizure Chief Complaint B12 inject EORDERS-URI- LAB AND XRAY FOLLOW UP Prolia 3 m fu EORDER Reason for Visit Fatigue Dementia Anxiety Epilepsy Fatigue Pseudoseizure Chest pain Essential hypertension Paroxysmal atrial fibrillation Von Willebrand disease Chief Complaint EORDERS-URI- LAB AND XRAY FOLLOW UP Prolia 3 m fu EORDER B12 inject B12 Reason for Visit Dementia Anxiety Epilepsy Fatigue Pseudoseizure Chest pain Essential hypertension Paroxysmal atrial fibrillation Von Willebrand disease Fatigue Fatigue Chief Complaint FOLLOW UP Prolia 3 m fu EORDER B12 inject B12 Reason for Visit Dementia Anxiety Epilepsy Fatigue Pseudoseizure Chest pain Essential hypertension Paroxysmal atrial fibrillation Von Willebrand disease Fatigue Fatigue Chief Complaint FOLLOW UP Prolia 3 m fu EORDER B12 inject B12 B12 inject BLEEDING FROM MOUTH Reason for Visit Dementia Anxiety Epilepsy Fatigue Pseudoseizure Chest pain Essential hypertension Paroxysmal atrial fibrillation Von Willebrand disease Fatigue Fatigue Fatigue Chief Complaint B12 inject B12 B12 inject BLEEDING FROM MOUTH 1 Y FU B12 inject EORDER Reason for Visit Fatigue Fatigue Fatigue Hypercortisolemia Osteoporosis Fatigue Chief Complaint B12 B12 inject BLEEDING FROM MOUTH 1 Y FU B12 inject EORDER 4 M FU SCREENING Reason for Visit Fatigue Fatigue Hypercortisolemia Osteoporosis Fatigue Epilepsy Fatigue Pseudoseizure Chief Complaint B12 inject BLEEDING FROM MOUTH 1 Y FU B12 inject EORDER 4 M FU SCREENING Prolia Reason for Visit Fatigue Hypercortisolemia Osteoporosis Fatigue Epilepsy Fatigue Pseudoseizure Chief Complaint Prolia 4 M FU EORDERS Reason for Visit Fatigue Chief Complaint 4 M FU EORDERS EORDER Prolia EORDER Reason for Visit Fatigue Osteoporosis Chief Complaint Admit Date 1 Y FU/Prolia B&B September 27, 2024 1:27pm EORDERS November 30, 2024 12: 56pm FOLLOW UP December 23, 2024 10:00 am B12 January 24, 2025 10:3 2am Reason for Visit Admit Date Osteoporosis September 27, 2024 1:27pm Dementia December 23, 2024 10:00 am Epilepsy December 23, 2024 10:00 am Fatigue December 23, 2024 10:00 am Pseudoseizure December 23, 2024 10:00 am Chief Complaint Admit Date EORDERS November 30, 2024 12: 56pm FOLLOW UP December 23, 2024 10:00 am B12 January 24, 2025 10:3 2am B12 inject March 01, 2025 10:3 3am Reason for Visit Admit Date Dementia December 23, 2024 10:00 am Epilepsy December 23, 2024 10:00 am Fatigue December 23, 2024 10:00 am Pseudoseizure December 23, 2024 10:00 am Fatigue January 24, 2025 10:3 2am Family History No Family History Records Found Relationship Condition Age at Onset Recorded Date/T ramakrishna mother Malignant neoplasm of endometrium Unknown Malignant neoplasm of breast Unknown Malignant neoplasm of ovary Unknown Disorder of respiratory system Unknown uncle Heart disease Unknown sister Disorder of liver Unknown Unknown father Depression Unknown Relationship Condition Age at Onset Recorded Date/T ramakrishna mother Malignant neoplasm of endometrium Unknown Malignant neoplasm of breast Unknown Malignant neoplasm of ovary Unknown Disorder of respiratory system Unknown uncle Heart disease Unknown sister Disorder of liver Unknown father Depression Unknown Advance Directives No Advanced Directives Records Found Advance Directive Response Recorded Date/ Time Living Will Yes October 30, 2021 12:21pm Power of Manager Portable Yes October 30 12:21pm Advance Directive Response Recorded Date/ Time Living Will Yes October 30, 2021 3:54pm Power of Manager Portable Yes October 30 3:54pm Advance Directive Response Recorded Date/ Time Name of Medical Power of Manager Portable narinder rollins October 30, 2021 3:54pm Name of Medical Power of Manager Portable BETTINA WONG February 15, 2022 6:50am Living Will Yes February 15, 2022 6:50am Power of Manager Portable Yes February 15 6:50am Advance Directive Response Recorded Date/ Time Name of Medical Power of Manager Portable BETTINA WONG February 15, 2022 6:50am Living Will Yes February 15, 2022 6:50am Power of Manager Portable Yes February 15 6:50am Advance Directive Response Recorded Date/ Time Name of Medical Power of Manager Portable BETTINA WONG February 15, 2022 6:50am Name of Medical Power of Manager Portable presen t May 08, 2022 5:14pm Living Will Yes May 08 5:14pm Power of Manager Portable Yes May 08 5:14pm Advance Directive Response Recorded Date/ Time Name of Medical Power of Manager Portable BETTINA WONG February 15, 2022 6:50am Name of Medical Power of Manager Portable presen t May 08, 2022 5:14pm Name of Medical Power of Manager Portable May 09, 2022 6:47pm Living Will Yes May 09 6:47pm Power of Manager Portable Yes May 09 6:47pm Advance Directive Response Recorded Date/ Time Name of Medical Power of Manager Portable BETTINA WONG February 15, 2022 5:50am Name of Medical Power of Manager Portable presen t May 08, 2022 4:14pm Name of Medical Power of Manager Portable May 09, 2022 5:47pm Living Will Yes May 09 5:47pm Power of Manager Portable Yes May 09 5:47pm Advance Directive Response Recorded Date/ Time Name of Medical Power of Manager Portable presen t May 08, 2022 4:14pm Name of Medical Power of Manager Portable May 09, 2022 5:47pm Living Will Yes May 09 5:47pm Power of Manager Portable Yes May 09 5:47pm Advance Directive Response Recorded Date/ Time Name of Medical Power of Manager Portable presen t May 08, 2022 4:14pm Name of Medical Power of Manager Portable May 09, 2022 5:47pm Living Will Yes August 01 4:07pm Power of Manager Portable Yes August 01, 2022 4:07pm Advance Directive Response Recorded Date/ Time Living Will Yes September 25, 023 9:20am Power of Manager Portable Yes September 25, 2022 9:20am Advance Directive Response Recorded Date/ Time Living Will Yes September 25 023 10:20am Power of Manager Portable Yes September 25, 2022 10:20am Advance Directive Response Recorded Date/ Time Living Will No January 07, 2023 7 :29pm Power of Manager Portable No January 07, 2023 7:29pm Advance Directive Response Recorded Date/ Time Living Will No January 07, 2023 6 :29pm Power of Manager Portable No January 07, 2023 6:29pm Date Activated Date Inactivated Comments 04/29/2022 5:31 PM Reason for Referral Specialty Diagnoses / Procedures Referred By Kinjal painter Referred To Contact Procedures ECG Alanna Ramirez, CORN SHELLER OPERATOR-ASSOCIATE MERCHANDISE PLANNER [address] [place] [address] Referral ID Status Reason Start Date Expiration Date V isits Requested Visits Authorized [id number] New Request 02/21/2022 03/18/2023 1 1 Summary Purpose Additional Source Comments Goals (unrecognized section and content) Goals may be documented in a n alternate sectionGoals may be documented in an alternate sectionGoals may be documented in an alternate sectionGoals may be documented in an alternate sectionGoals may be documented in an alternate sectionGoals may be documented in an alternate sectionGoals may be documented in an alternate sectionGoals may be documented in an alternate sectionGoals may be documented in an alternate sectionGoals may be documented in an alternate sectionGoals may be documented in an alternate sectionGoals may be documented in an alternate sectionGoals may be documented in an alternate sectionGoals may be documented in an alternate sectionGoals may be documented in an alternate sectionGoals may be documented in an alternate sectionGoals may be documented in an alternate sectionGoals may be documented in an alternate sectionGoals may be documented in an alternate sectionGoals may be documented in an alternate sectionGoals may be documented in an alternate sectionGoals may be documented in an alternate sectionGoals may be documented in an alternate section No data available for this section No data available for this sectionGoals may be documented in an alternate sectionGoals may be documented in an alternate section Reason for Visit (unrecogniz ed section and content) Reason Comments New Patient VWD (von Willebrand disease) Specialty Diagnoses / Procedures Referred By Contac t Referred To Contact Hematology Diagnoses aquired hemophilia Procedures [facility] HEMATOLOGY Nilay Fong MB/CHB [address] [place] [address] Samuel Akins MD [address] [place] [address] Referral ID Status Reason Start Date Expiration Date Visits Re quested Visits Authorized [id number] Closed 11/05/2019 11/29/2020 1 1 Reason Comments Infusion Visit infed Reason Comments Epistaxis With bleeding disord er Specialty Diagnoses / Procedures Referred By Contac t Referred To Contact Mary Valencia DO [address] [place] [address] [facility] [address] [place] [address] Referral ID Status Reason Start Date Expiration Date Visits Re quested Visits Authorized [id number] 1 1 Reason Comments New Patient Chest pain comes and goes and back of head hurt Specialty Diagnoses / Procedures Referred By Contac t Referred To Contact Cardiovascular Medicine Diagnoses Hemorrhagic diathesis Osmin Finn MD [address] [place] [address] Referral ID Status Reason Start Date Expiration Date V isits Requested Visits Authorized [id number] New Request 01/29/2022 02/23/2023 1 1 Reason Onset Date Comments Orders 03/08/2022 Chem 6 Reason Onset Date Comments Results 03/14/2022 Labs and advice Reason Comments CARD New Patient Consult Reason Comments CARD New Patient Consult Discuss watchma n 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 Reason Onset Date Comments Other 02/09/2025 Care Teams (unrecognized sec tion and content) Rubber Vulcanizing Machine Operator Relationship Specialty Start Date End Date Haroon Patel MD [address] [place], [place] [id number] PCP - General Family Medicine 11/04/19 Nilay Fong MB/CHB [address] [place] [address] Dairy Technologist Hematology 09/25/21 Rubber Vulcanizing Machine Operator Relationship Specialty Start Date End Date Haroon Patel MD [address] [place] [address] PCP - General Family Medicine 11/04/19 Nilay Fong MB/CHB [address] [place] [address] Dairy Technologist Hematology 09/25/21 Rubber Vulcanizing Machine Operator Relationship Specialty Start Date End Date Haroon Patel MD [address] [place] [address] PCP - General Family Medicine 11/04/19 Nilay Fong MB/CHB [address] [place] [address] Dairy Technologist Hematology 09/25/21 Rubber Vulcanizing Machine Operator Relationship Specialty Start Date End Date Haroon Patel MD [address] [place] [address] PCP - General Family Medicine 11/04/19 Nilay Fong MB/CHB [address] [place] [address] Dairy Technologist Hematology 09/25/21 Rubber Vulcanizing Machine Operator Relationship Specialty Start Date End Date Haroon Patel MD [address] [place] [address] PCP - General Family Medicine 11/04/19 Nilay Fong MB/CHB [address] [place] [address] Dairy Technologist Hematology 09/25/21 Rubber Vulcanizing Machine Operator Relationship Specialty Start Date End Date Haroon Patel MD [address] [place] [address] PCP - General Family Medicine 11/04/19 Nilay Fong MB/CHB [address] [place] [address] Dairy Technologist Hematology 09/25/21 Rubber Vulcanizing Machine Operator Relationship Specialty Start Date End Date Haroon Patel MD [address] [place] [address] PCP - General Family Medicine 03/14/11 Edy Mcneil [address] [facility] [place] [phone] Specialty Preventive Maintenance Coordinator Cardiology 08/19/22 Team Status: Active Member Role Status Dates Dr. Robert Patel MD Family Provider Active Dr. Robert Patel MD Primary Care Provider Activ e Team Status: Inactive Member Role Status Dates Dr. Robert Patel MD Primary Care Provider Activ e Dr. Roberto Carlos Lima MD Attending Provider, Referring Provider Active Team Status: Inactive Member Role Status Dates Dr. Robert Patel MD Primary Care Provider Activ e Dr. Dorian Mckeon MD Attending Provider, Referring Provi maria victoria Active Team Status: Inactive Member Role Status Dates Dr. Robert Patel MD Primary Care Provider, Attending Provider, Referring Provider Active Team Status: Active Member Role Status Dates Dr. Robert Patel MD Primary Care Provider, Refe rring Provider Active Jessie Stathopoulos , HEARSE DRIVER-C Attending Provider Active Team Status: Inactive Member Role Status Dates Dr. Robert Patel MD Primary Care Provider, Refe rring Provider Active Marlene Webb PA, PA Attending Provider Active Team Status: Inactive Member Role Status Dates Dr. Robert Patel MD Primary Care Provider, Refe rring Provider Active Jessie Stathopoulos , HEARSE DRIVER-C Attending Provider Active Team Status: Inactive Member Role Status Dates Dr. Robert Patel MD Primary Care Provider Activ e Marlene Webb PA, PA Attending Provider, Referr ing Provider Active Team Status: Inactive Member Role Status Dates Dr. Robert Patel MD Primary Care Provider, Atte nding Provider Active Team Status: Active Member Role Status Dates Dr. Robert Patel MD Primary Care Provider, Atte nding Provider Active Team Status: Inactive Member Role Status Dates Dr. Robert Patel MD Primary Care Provider Renato Stanford MD Emergency Provider Active Team Status: Inactive Member Role Status Dates Dr. Robert Patel MD Primary Care Provider, Refe rring Provider Active Dr. Dorian Mckeon MD Attending Provider Active Team Status: Inactive Member Role Status Dates Dr. Robert Patel MD Primary Care Provider Activ elo Stanford MD Attending Provider, Emergency Provid er Active Team Status: Inactive Member Role Status Dates Dr. Robert Patel MD Primary Care Provider, Refe rring Provider Active Dr. Roberto Carlos Lima MD Attending Provider Active Team Status: Active Member Role Status Dates Dr. Robert Patel MD Primary Care Provider, Attending Provider, Referring Provider Active Rubber Vulcanizing Machine Operator Relationship Specialty Start Date End Date Haroon Patel MD [address] [place] [id number] PCP - General Family Medicine 03/14/11 Analilia Omer MD [address] [place] [address] Specialty Preventive Maintenance Coordinator Hematology/Oncology 08/24/22 Sherley He MD [address] [place] [phone] Specialty Preventive Maintenance Coordinator Cardiology 08/08/24 Jose Enrique Prince MD [address] [facility] [address] [place] [address] Specialty Preventive Maintenance Coordinator Cardiology 09/09/24 Marlene Webb PA-C [address] [facility] [place] [address] Physician Corporate Ethics Officer Cardiology 09/10/24 Rubber Vulcanizing Machine Operator Relationship Specialty Start Date End Date Haroon Patel MD [address] [place] [address] PCP - General Family Medicine 03/14/11 Analilia Omer MD [address] [place] [address] Specialty Preventive Maintenance Coordinator Hematology/Oncology 08/24/22 Sherley He MD [address] [place] [address] Specialty Preventive Maintenance Coordinator Cardiology 08/08/24 oJse Enrique Prince MD [address] [facility] [address] [address] Specialty Preventive Maintenance Coordinator Cardiology 09/09/24 Marlene Webb PA-C [address] [facility] [place] [address] Physician Corporate Ethics Officer Cardiology 09/10/24 Team Status: Active Member Role Status Dates Dr. Haroon Patel MD Family Provider Active Dr. Haroon Patel MD Primary Care Provider Acti ve Team Status: Inactive Member Role Status Dates Dr. Haroon Patel MD Primary Care Provider Acti ve Start: September 27, 2024 End: September 27, 2024 Dr. Haroon Patel MD Referring Provider Active Start: September 27, 2024 End: September 27, 2024 Dr. Dorian Mckeon MD Attending Provider Active Sta rt: September 27, 2024 End: September 27, 2024 Team Status: Inactive Member Role Status Dates Dr. Haroon Patel MD Primary Care Provider Acti ve Start: November 30, 2024 End: November 30, 2024 Dr. Haroon Patel MD Attending Provider Active Start: November 30, 2024 End: November 30, 2024 Dr. Haroon Patel MD Referring Provider Active Start: November 30, 2024 End: November 30, 2024 Team Status: Inactive Member Role Status Dates Dr. Haroon Patel MD Primary Care Provider Acti ve Start: December 23, 2024 End: December 23, 2024 Dr. Haroon Patel MD Referring Provider Active Start: December 23, 2024 End: December 23, 2024 Dr. Roberto Carlos Lima MD Attending Provider Active Start: December 23, 2024 End: December 23, 2024 Team Status: Inactive Member Role Status Dates Dr. Haroon Patel MD Primary Care Provider Acti ve Start: January 24, 2025 End: January 24, 2025 Dr. Haroon Patel MD Referring Provider Active Start: January 24, 2025 End: January 24, 2025 Dr. Roberto Carlos Lima MD Attending Provider Active Start: January 24, 2025 End: January 24, 2025 Rubber Vulcanizing Machine Operator Relationship Specialty Start Date End Date Haroon Patel MD PCP - General Family Medicine 11/04/19 Osmin Finn MD [address] [place] [address] PCP - Referring 1 Hematology 04/29/22 Luis Miguel Hinkle MD [address] [facility] [address] [place] [phone] PCP - Referring 2 Cardiovascular Disease 04/29/22 Jaison Casanova MD [address] [place] [phone] PCP - Referring 3 Cardiovascular Disease 04/29/22 Nilay Fong MD [address] [place] [address] Dairy Technologist Hematology 09/25/21 Team Status: Active Member Role/Relationship Status Dates Dr. Haroon Patel MD Family Provider Active Dr. Haroon Patel MD Primary Care Provider Acti ve Team Status: Inactive Member Role/Relationship Status Dates Dr. Haroon Patel MD Primary Care Provider Acti ve Start: November 30, 2024 End: November 30, 2024 Dr. Haroon Patel MD Attending Provider Active Start: November 30, 2024 End: November 30, 2024 Dr. Haroon Patel MD Referring Provider Active Start: November 30, 2024 End: November 30, 2024 Team Status: Inactive Member Role/Relationship Status Dates Dr. Haroon Patel MD Primary Care Provider Acti ve Start: December 23, 2024 End: December 23, 2024 Dr. Roberto Carlos Lima MD Attending Provider Active Start: December 23, 2024 End: December 23, 2024 Dr. Roberto Carlos Lima MD Referring Provider Active Start: December 23, 2024 End: December 23, 2024 Team Status: Inactive Member Role/Relationship Status Dates Dr. Haroon Patel MD Primary Care Provider Acti ve Start: January 24, 2025 End: January 24, 2025 Dr. Roberto Carlos Lima MD Attending Provider Active Start: January 24, 2025 End: January 24, 2025 Dr. Roberto Carlos Lima MD Referring Provider Active Start: January 24, 2025 End: January 24, 2025 Team Status: Inactive Member Role/Relationship Status Dates Dr. Haroon Patel MD Primary Care Provider Acti ve Start: March 01, 2025 End: March 01, 2025 Dr. Haroon Patel MD Referring Provider Active Start: March 01, 2025 End: March 01, 2025 Dr. Roberto Carlos Lima MD Attending Provider Active Start: March 01, 2025 End: March 01, 2025 Scheduled Active and Recently Administ ered Medications (unrecognized section and content) Medication Order 02/19/2022 02/20/2022 02/21/2022 acetaminophen (TYLENOL) tablet 325 mg 325 mg, Oral, 2 TIMES DAILY, First dose on Ida 02/21/22 at 0315, Until Discontinued, Maximum dose of acetaminophen is 4000 mg from all sources in 24 hours. 0424 (Given - Provid er: Debora Rizo RN)0817 (Given - Provider: Jodee Vora RN)1700 (Canceled Entry - Provider: System Discharge - Comment: Automatically canceled at discontinue of medication order) lamoTRIgine (laMICtal) tablet 50 mg 50 mg, Oral, EVERY 12 HOURS, First dose on Ida 02/21/22 at 0345, Until Discontinued 0424 (Given - Provid er: Debora Rizo RN) metoprolol (LOPRESSOR) tablet 75 mg 75 mg, Oral, EVERY 12 HOURS, First dose on Ida 02/21/22 at 0315, Until Discontinued, 0424 (Given - Provid er: Debora Rizo RN) multivitamin w/ minerals (THERAPEUTIC-M) tablet 1 tablet 1 tablet, Oral, DAILY, First dose on Ida 02/21/22 at 0900, Until Discontinued 0818 (Given - Provid er: Jodee Vora RN) pantoprazole (PROTONIX) tablet DR 40 mg 40 mg, Oral, EVERY 12 HOURS, First dose on Ida 02/21/22 at 0315, Until Discontinued, Indications: Continuation of Home Therapy, GERD 0424 (Given - Provid er: Debora Rizo RN) PRN Medication Order 02/19/2022 02/20/2022 02/21/2022 alum/mag [...] Starting on Ida 02/21/22 at 0314, Until [facility] 02/21/22 at 1816, Dry Eyes, Patient may self-administer. Source Comments (unrecognize d section and content) In the event this informatio n is protected by the Federal Confidentiality of Alcohol and Drug Abuse Patient Records regulations: The Federal rules restrict any use of the information to criminally investigate or prosecute any alcohol or drug abuse patient.[facility] the event this information is protected by the Federal Confidentiality of Alcohol and Drug Abuse Patient Records regulations: The Federal rules restrict any use of the information to criminally investigate or prosecute any alcohol or drug abuse patient.[facility] the event this information is protected by the Federal Confidentiality of Alcohol and Drug Abuse Patient Records regulations: The Federal rules restrict any use of the information to criminally investigate or prosecute any alcohol or drug abuse patient.[facility] INFORMATION SOURCE (unrecogn ized section and content) DATE CREATED AUTHOR 01/14/2023 [facility] DATE CREATED AUTHOR AUTHOR'S ORGANIZ ATION 01/04/2025 [facility] DATE CREATED AUTHOR AUTHOR'S ORGANIZ ATION 01/12/2025 [facility] DATE CREATED AUTHOR AUTHOR'S ORGANIZ ATION 02/05/2025 [facility] DATE CREATED AUTHOR AUTHOR'S ORGANIZ ATION 03/06/2025 [facility] DATE CREATED AUTHOR AUTHOR'S ORGANIZ ATION 03/10/2025 [facility] FOR RECORDS PERTAINING TO PATIENTS WHO [...] BE BASED ON THE PRIMARY CLINICAL RECORDS. [facility] [employer] provides no warranty or guarantee of the accuracy or completeness of information in this document.
[2025-03-11 18:31] LABS: Hematocrit 40.4 % (37-47); Hemoglobin 13.2 g/dL (12.0-15.0); Immature Granulocytes Count 0.090 X10^3/uL (0.0-0.0); Mean Corp Hgb Conc 32.7 g/dL (32-36); Mean Corpuscular Volume 90.2 fL (81-99); Mean Platelet Vol. 10.5 fl (6.2-12.0); NRBC Flagged by Analyzer 0 % (0-5); Platelet Count 291 K/mm3 (150-450); RBC Distribution Width CV 13.7 % (11.6-14.6); RBC Distribution Width SD 45.5 fl (35.1-43.9); Red Blood Count 4.48 M/mm3 (4.2-5.4); White Blood Count 10.3 K/mm3 (4.4-11.0)
--- NOTE | 2025-03-11 18:35 | RAD_ITS ---
PROCEDURE: CHEST 1 VIEW (PORTABLE) 03/11/2025 REASON FOR EXAM: CHEST PAIN TECHNIQUE: Frontal view of the chest. COMPARISON: 08/06/2022 FINDINGS: Hardware: None. Heart: The heart size is normal. Lungs: The lungs are clear. Bones: The bones are unremarkable. Other: None. RAD/Chest 1 View (Portable) IMPRESSION: No Acute Findings. [facility]
[2025-03-11 19:02] LABS: Anion Gap 13 (5-15); BUN 14 mg/dL (4-19); BUN/Creat Ratio 17.5 RATIO (10-20); Calcium,Total 9.6 mg/dL (7.6-11.0); Carbon Dioxide 23.4 mmol/L (21.0-32.0); Chloride 94 mmol/L (98-108); Estimated Creatinine Clearance 54.08 ml/min (50-250); Glucose 135 mg/dL (70-99); Potassium 4.4 mmol/L (3.3-5.1); Troponin T High Sensitivity 8 ng/L (<=14)
[2025-03-11] MEDS: 0.9% Normal Saline (1000mL) 1,000 ML 999 ML IV (19:11)
[2025-03-11 19:12] VITALS: BP 157/104; PULSE 96; RESP 18; O2SAT 99
[2025-03-11 19:20] LABS: Mucous, Urine 0 SEEN /hpf (<or=2+)
[2025-03-11 19:22] LABS: Color, Urine Yellow (Yellow); Glucose, Dipstick Normal (Normal); Ketone-Dipstick Negative (Negative); Leukocyte Esterase-Dipstick 25 /ul (Negative); Nitrite-Dipstick Negative (Negative); Occult Blood-Urine Negative /ul (Negative); Protein-Dipstick 30 mg/dl (Negative); Specific Gravity, Urine 1.015 (1.002-1.030); Urine Bilirubin Dipstick Negative (Negative)
[2025-03-11 19:40] LABS: Red Blood Cells-Urine 0-5 SEEN /hpf (0-5); Squamous Epithelial Cells - UA 0-5 SEEN /hpf (5-10)
[2025-03-11 20:00] VITALS: BP 154/100; PULSE 127; O2SAT 99
[2025-03-11 20:58] LABS: Troponin T High Sens 2 HR 6 ng/L (<=14)
[2025-03-11 21:00] VITALS: BP 165/101; PULSE 109; RESP 15; O2SAT 100
[2025-03-11 21:52] VITALS: BP 165/101; PULSE 115; RESP 18; TEMP 35.7; O2SAT 100
== END 2025-03-11 21:52 | disposition home or self-care (01) ==
PROVIDERS: Physician Assistant; Emergency Provider Emergency Medicine; PCP Family Medicine; Visit Provider Emergency Medicine
DX: R07.9 Chest pain, unspecified (principal); R53.1 Weakness; Z87.891 Personal history of nicotine dependence
CPT/HCPCS: 71045; 80048; 81001; 84484; 85025; 93005; 96360; 99284; A4216

== ENCOUNTER → 2025-06-13 | Outpatient (CLI) | payer MEDICARE, OTHER, SELFPAY ==
--- NOTE | 2025-06-13 11:03 | CPS ---
Pt only ordered DLCO and spirometry
== END | disposition home or self-care (01) ==
LOC: PSN 10:43
PROVIDERS: PCP Family Medicine
DX: I48.11 Longstanding persistent atrial fibrillation (principal)
CPT/HCPCS: 94010; 94729

== ENCOUNTER → 2025-07-20 | Outpatient (CLI) | payer MEDICARE, OTHER, SELFPAY ==
[2025-07-20 12:38] LABS: Hematocrit 38.4 % (37-47); Hemoglobin 12.4 g/dL (12.0-15.0); Immature Granulocytes Count 0.050 X10^3/uL (0.0-0.0); Mean Corp Hgb Conc 32.3 g/dL (32-36); Mean Corpuscular Volume 91.0 fL (81-99); Mean Platelet Vol. 11.0 fl (6.2-12.0); NRBC Flagged by Analyzer 0 % (0-5); Platelet Count 268 K/mm3 (150-450); RBC Distribution Width CV 14.1 % (11.6-14.6); RBC Distribution Width SD 46.7 fl (35.1-43.9); Red Blood Count 4.22 M/mm3 (4.2-5.4); White Blood Count 7.0 K/mm3 (4.4-11.0)
[2025-07-20 13:05] LABS: Ammonia 29.3 umol/L (11-51)
[2025-07-20 13:23] LABS: AST(SGOT) 24 U/L (<=31); Alanine Aminotransfer ALT/SGPT 15 U/L (<=34); Albumin, Serum 4.2 g/dL (3.4-4.8); Alkaline Phosphatase 57 U/L (35-104); Anion Gap 11 (5-15); BUN 14 mg/dL (4-19); BUN/Creat Ratio 17.7 RATIO (10-20); CORTISOL AM 14.70 ug/dL (6.02-18.40); Calcium,Total 10.0 mg/dL (7.6-11.0); Carbon Dioxide 25.9 mmol/L (21.0-32.0); Chloride 99 mmol/L (98-108); Globulin 2.6 g/dL (2.2-4.2); Glucose 84 mg/dL (70-99); Potassium 4.7 mmol/L (3.3-5.1); Vitamin B12 724 pg/mL (180-914); Vitamin D,25 Hydroxy 39.8 ng/mL (30-100)
[2025-07-21 08:41] LABS: Free T3 2.3 pg/mL (2.18-3.98)
== END | disposition home or self-care (01) ==
LOC: MFPLAB 09:58
PROVIDERS: PCP Family Medicine; Visit Provider Family Medicine
DX: E03.9 Hypothyroidism, unspecified (principal); B18.2 Chronic viral hepatitis C; E55.9 Vitamin D deficiency, unspecified; R53.83 Other fatigue
CPT/HCPCS: 36415; 80053; 82140; 82306; 82533; 82607; 84439; 84443; 84481; 85025; 85652